=== PATIENT | female | born 1940 | race Caucasian/White ===

== ENCOUNTER 2017-07-15 10:52 | Outpatient (RCR) | payer MEDICARE, SELFPAY ==
--- NOTE | 2017-07-15 14:56 | HP.PTEVAL_ITS ---
Patient's Visit Information MELISSA JORDAN is a 77 year old F referred to Physical Therapy by Cira Valdez with a diagnosis of BPV. Date of Evaluation: 07/15/17 Physical Therapist: Jhonatan Stafford DPT, [place] - Visit Plan Plan: No skilled PT required at this point. Pt to continue doctoring with family doctors orders and diagnostics - Subjective Subjective: Since April has had some dizzyness with rolling in bed or leaning over to wash hair and it lasts seconds. Avoids woodchop in ex class and excessive head movement activities. Does not feel unsteady otherwise but does have sinus pressure feeling intermittently. Has had some migraines and bad allergies. Will have oxygen test for sleep apnea. Also had bllod pressure spikes after four hours of sleep and some migraines. All seemed to start in april. Has been senistive to spinning object for long time. Stopped down dog in yoga since April. - Objective Walks easily and smoothly without balance deficits.Transfers I. Steps reciprocal without rail. - B hallpike, - roll test. Oculomotor is normal today : no nystagmus with gaze or head shake. - skew eye deviation. - head thrust. pursuit and saccades are normal. VOR is normal and asymptomatic. No symptoms created today with position change or eye movements. - Balance Scores Functional Gait Assessment Score: 30 % Disability: 0 CATSIB Score (Max score 120 seconds): 120 - Anticipated Interventions Thank you for the opportunity to evaluate your patient. For Medicare and Medicare HMO plans, please review the plan of care and approve it. It will need to be FAXED BACK to us at [phone] for Medicare purposes. Please let me know if there are questions or concerns regarding this plan of care. Physician Signature: Date:
== END 2017-07-15 18:25 | disposition home or self-care (01) ==
LOC: PT 10:52
PROVIDERS: Family Provider Internal Medicine; PCP Internal Medicine; Visit Provider Internal Medicine
DX: H81.10 Benign paroxysmal vertigo, unspecified ear (principal)
CPT/HCPCS: 97162

== ENCOUNTER → 2018-01-05 08:22 | Outpatient (CLI) | payer MEDICARE, SELFPAY ==
--- NOTE | 2018-01-05 08:25 | CT_ITS ---
STUDY: CT ABDOMEN AND PELVIS WITHOUT CONTRAST REASON FOR EXAM: Female, 77 years old. Endometrial cancer. Uterine cancer. History of total hysterectomy, 2017. RADIATION DOSAGE (If Supplied By Facility): CTDIvol = ( 6.04 ) mGy, DLP = ( 255.17 ) mGycm TECHNIQUE: Transaxial images were obtained from the dome of the diaphragm to the symphysis pubis without oral contrast, and without intravenous contrast. Sagittal and coronal images were reconstructed. Individualized dose optimization techniques were used for this CT. COMPARISON: None. FINDINGS: The visualized lung bases are unremarkable. The visualized portions of the heart are within normal limits. There is hepatomegaly with diffuse hepatic enlargement. Normal gallbladder and extrahepatic biliary system. Normal spleen. Normal pancreas. Normal bilateral adrenal glands. Normal right kidney. Normal left kidney. Normal visualized stomach. Normal small intestine. Normal colon. There is non-visualization of the appendix. There is diffuse atherosclerotic calcification of the abdominal aorta, without a demonstrated aneurysm. Normal inferior vena cava. Normal retroperitoneum. The urinary bladder is incompletely distended but grossly unremarkable. Normal vaginal cuff. There are phleboliths in the pelvis without pelvic lymphadenopathy. No free air or free fluid is seen within the peritoneal cavity.. Normal abdominal wall. There are diffuse degenerative changes of the visualized lumbar spine and hips. CT/Abdomen/Pelvis without Cont IMPRESSION: 1. Hepatomegaly without focal mass. 2. Status post hysterectomy. 3. Degenerative changes of the lumbar spine and hips. 4. Atherosclerotic changes of the aorta and iliac arteries. 5. No evidence of acute intra-abdominal or pelvic abnormality. Electronically Signed: Ron Reis DO at 17:05 EST Tel [phone], Service support ,
== END ==
PROVIDERS: Family Provider Internal Medicine; PCP Internal Medicine; Referring Provider Obstetrics & Gynecology; Visit Provider Obstetrics & Gynecology
DX: C54.1 Malignant neoplasm of endometrium (principal); N93.9 Abnormal uterine and vaginal bleeding, unspecified; R16.0 Hepatomegaly, not elsewhere classified; Z90.710 Acquired absence of both cervix and uterus
CPT/HCPCS: 74176

== ENCOUNTER 2018-06-22 08:22 | Day surgery (SDC) | payer MEDICARE, SELFPAY ==
[2018-06-04 13:13] VITALS: BMI 18.8
[2018-06-22] VITALS (7 sets, daily range): BP systolic 102–166; BP diastolic 50–74; PULSE 57–78; RESP 16–18; TEMP 36–36.6; O2SAT 98–100; BMI 18.3
--- NOTE | 2018-06-22 09:51 | OP.ENDO_ITS ---
06/22/2018 Cira Valdez [address] [place] [address] Re : Colonoscopy procedure for Bharati Hilliard Dear Dr. Valdez This procedure was performed on Friday, June 22, 2018. My impressions and recommendations are as follows: Impressions : - Non-thrombosed external hemorrhoids, non-thrombosed internal hemorrhoids and internal hemorrhoids that prolapse with straining, but require manual replacement into the anal canal (Grade III) found on digital rectal exam. - Diverticulosis in the sigmoid colon and in the descending colon. - The examination was otherwise normal. - No specimens collected. Recommendations : - Discharge patient to home. - Resume previous diet. - Continue present medications. - - Repeat colonoscopy will be based upon symptoms. My findings are described in the full procedure note, which is enclosed. If I can be of further assistance, please feel free to contact me at Doctor phone number(s): Work: . Sincerely, Sameer Dover MD 06/22/2018 9:50:57 AM This report has been signed electronically.
== END 2018-06-22 10:51 | disposition home or self-care (01) ==
LOC: EN 08:24 → AC 08:25
PROVIDERS: Family Provider Internal Medicine; PCP Internal Medicine; Referring Provider Internal Medicine; Visit Provider Surgery
PROC: 0DJD8ZZ Inspection of Lower Intestinal Tract, Via Natural or Artificial Opening Endoscopic (ICD-10-PCS; CPT 45378; principal; 2018-06-22 09:25)
DX: Z12.11 Encounter for screening for malignant neoplasm of colon (principal); Z86.010 Personal history of colon polyps; K64.2 Third degree hemorrhoids; K64.4 Residual hemorrhoidal skin tags; K57.30 Diverticulosis of large intestine without perforation or abscess without bleeding; Z80.0 Family history of malignant neoplasm of digestive organs; I25.2 Old myocardial infarction; I10 Essential (primary) hypertension; Z87.891 Personal history of nicotine dependence
CPT/HCPCS: G0105; J7120

== ENCOUNTER → 2018-08-11 19:22 | Emergency (ER) | payer MEDICARE, SELFPAY ==
[2018-06-22 08:42] VITALS: BMI 18.3
[2018-08-11 19:22] VITALS: BP 182/81; PULSE 77; RESP 16; TEMP 36.9; O2SAT 98; BMI 18.5
== END ==
LOC: ED 08-12 00:19
PROVIDERS: Emergency Provider Emergency Medicine; Family Provider Internal Medicine; PCP Internal Medicine
DX: R69 Illness, unspecified (principal)

== ENCOUNTER → 2018-08-12 | Outpatient (CLI) | payer MEDICARE, SELFPAY ==
[2018-08-11 19:22] VITALS: BMI 18.5
[2018-08-12 09:57] LABS: Hematocrit 38.6 % (37-47); Mean Corp Hgb Conc 33.7 g/gl (32-36); Mean Corpuscular Hgb 29.1 pg (27.0-32.0); Mean Corpuscular Volume 86.5 fL (81-99); Mean Platelet Vol. 10.1 fl (6.2-12.0); Platelet Count 225 K/mm3 (150-450); RBC Distribution Width SD 41.6 fl (35.1-43.9); Red Blood Count 4.46 M/mm3 (4.2-5.4); White Blood Count 4.8 K/mm3 (4.4-11.0)
[2018-08-12 10:08] LABS: ALB/GLOB Ratio 1.2 RATIO (0.9-2.4); AST(SGOT) 49 U/L (15-37); Alanine Aminotransfer ALT/SGPT 50 U/L (13-56); Albumin, Serum 3.8 g/dL (3.2-5.0); Alkaline Phosphatase 103 U/L (45-117); Anion Gap 5 (5-15); BUN 13 mg/dL (7-18); Calcium,Total 8.9 mg/dL (8.5-10.1); Chloride 101 mmol/L (98-107); Creatinine, Serum 0.72 mg/dL (0.55-1.02); EST Glomerular Filtration Rate 83 mL/min (>60); Est Glom Filt Rate - Afr Amer 100 mL/min (>60); Globulin 3.3 g/dL (2.2-4.2); Glucose 94 mg/dL (74-106); Protein, Total 7.1 g/dL (6.4-8.2); Sodium Level 135 mmol/L (136-145)
[2018-08-12 10:16] LABS: Scan Indicated on CBC? Y/N NO
== END | disposition home or self-care (01) ==
LOC: LABSPEC 09:44
PROVIDERS: Family Provider Internal Medicine; PCP Internal Medicine; Referring Provider Nurse Practitioner Gerontology; Visit Provider Nurse Practitioner Gerontology
DX: R10.9 Unspecified abdominal pain (principal)
CPT/HCPCS: 80053; 85027

== ENCOUNTER → 2018-10-20 07:46 | Outpatient (CLI) | payer MEDICARE, SELFPAY ==
[2018-10-15 08:29] VITALS: BMI 18.3
--- NOTE | 2018-10-20 07:47 | AAVD_ITS ---
Reason For Study: Palpable Abdominal Aorta Aorta Measurements Aorta Doppler Measurements Proximal aorta measures1.65cm x 1.65cm. in cross- Peak systolic flow velocities within the proximal sectional axis. aorta measure 69 cm/sec. Proximal aorta measures1.52cm. in longitudinal Peak systolic flow velocities within the mid aorta axis. measure 59 cm/sec. Mid aorta measures1.50cm x 1.53cm. in cross- Peak systolic flow velocities within the distal sectional axis. aorta measure 76 cm/sec. Mid aorta measures1.54cm. in longitudinal axis. Distal aorta measures1.35cm x 1.39cm. in cross- sectional axis. Distal aorta measures1.37cm. in longitudinal axis. Left Iliac Artery Left iliac artery measures 0.70cm x 0.72 cm. in the cross-sectional axis. Left iliac artery measures 0.64 cm. in the longitudinal axis. Peak systolic velocity in the left iliac artery measures 108 cm/sec. Right Iliac Artery Right iliac artery measures 0.81cm x 0.81 cm. in the cross-sectional axis. Right iliac artery measures 0.77 cm. in the longitudinal axis. Peak systolic velocity in the right iliac artery measures 77 cm/sec. Procedure Aorta IVC Iliac vasculature or bypass grafts [id number]. Exam performed in department. Interpretation Summary 1. No aortoiliac stenosis or aneurysm. Ordering Physician: Alex Al Referring Physician: Cira Valdez Performed By: Fannie Agosto, DES, RVT
[2018-10-20 09:59] LABS: Bacteria 0 SEEN /hpf (None Seen); Mucous, Urine 0 SEEN /hpf (<or=2+)
[2018-10-20 10:09] LABS: Color, Urine Yellow (Yellow); Glucose, Dipstick Normal (Normal); Ketone-Dipstick Negative (Negative); Leukocyte Esterase-Dipstick 500 /ul (Negative); Nitrite-Dipstick Negative (Negative); Occult Blood-Urine 50 /ul (Negative); Protein-Dipstick 30 mg/dl (Negative); Urine Bilirubin Dipstick Negative (Negative); Urine Clarity Sl. Cloudy (Clear); Urine Urobilinogen Normal (Normal)
[2018-10-20 10:24] LABS: Red Blood Cells-Urine 0-5 SEEN /hpf (0-5); Squamous Epithelial Cells - UA 0-5 SEEN /hpf (5-10); White Blood Cells 25-50 SEEN /hpf (0-5)
== END ==
PROVIDERS: Family Provider Physician Assistant; PCP Internal Medicine; Referring Provider Internal Medicine Cardiovascular Disease; Visit Provider Internal Medicine Cardiovascular Disease
DX: I10 Essential (primary) hypertension (principal); R09.89 Other specified symptoms and signs involving the circulatory and respiratory systems; N39.0 Urinary tract infection, site not specified
CPT/HCPCS: 81001; 87086; 87088; 87186; 93978

== ENCOUNTER → 2018-10-29 09:59 | Outpatient (CLI) | payer MEDICARE, SELFPAY ==
[2018-10-20 09:08] VITALS: BMI 18.3
--- NOTE | 2018-10-29 10:00 | BI_ITS ---
MAMMOGRAPHY - BILATERAL SCREENING REASON FOR EXAM: Female, 78 years old. Routine annual screening examination. PERTINENT HISTORY: Non-contributory. Remote left excisional breast biopsy. Patient has a history of uterine carcinoma. TECHNIQUE: Digital bilateral breast donte (3D mammographic acquisition) in the CC and MLO projections. 2-D mediolateral oblique (MLO) and craniocaudad (CC) views of both breasts were obtained. CAD: Full Field Digital Mammography with Computer Added Detection was performed. COMPARISON: Comparison is made with prior study dated February 20, 2010. FINDINGS: Breast Composition: The breasts are heterogeneously dense, which may obscure small masses. There are no dominant masses or suspicious calcifications. No other significant abnormalities are identified. There has been no significant change since the prior study. BI/SCREEN MAMM (CAD) W/DONTE BILAT IMPRESSION: Stable bilateral screening mammogram. Yearly follow-up mammogram recommended. (A) ASSESSMENT CATEGORY: BIRADS Category 1: Negative. A letter regarding these results will be sent to the patient by the facility within 30 days. Approximately 10% of breast cancers are not detected by mammography. A normal mammogram should not delay biopsy of a clinically suspicious abnormality. [id number] Electronically Signed: Alvarez Wilson, at 11:03 EDT , Service support ,
== END ==
PROVIDERS: Family Provider Internal Medicine; PCP Internal Medicine; Referring Provider Internal Medicine; Visit Provider Internal Medicine
DX: Z12.31 Encounter for screening mammogram for malignant neoplasm of breast (principal)
CPT/HCPCS: 77063; 77067

== ENCOUNTER → 2019-01-18 13:04 | Outpatient (CLI) | payer MEDICARE, SELFPAY ==
[2019-01-18 12:41] VITALS: BMI 18.3
--- NOTE | 2019-01-18 13:06 | RAD_ITS ---
STUDY: X-RAY - LEFT SCAPULA REASON FOR EXAM: Female, 78 years old. TECHNIQUE: view(s) of the scapula were obtained. COMPARISON: None. FINDINGS: Normal scapula, including the osseous glenoid rim, acromion, scapular neck, spine, coracoid process, and visualized body. Normal glenohumeral articulation. Normal acromioclavicular joint. Normal visualized humeral head. Normal visualized pulmonary apex. RAD/Scapula IMPRESSION: Normal plain film x-ray examination of the scapula. Electronically Signed: Raven Purdy, at 13:54 EST Tel , Service support ,
== END ==
PROVIDERS: Family Provider Internal Medicine; PCP Internal Medicine; Referring Provider Physician Assistant Surgical; Visit Provider Physician Assistant Surgical
DX: S46.912A Strain of unspecified muscle, fascia and tendon at shoulder and upper arm level, left arm, initial encounter (principal); X58.XXXA Exposure to other specified factors, initial encounter
CPT/HCPCS: 73010

== ENCOUNTER → 2019-06-13 13:00 | Outpatient (CLI) | payer MEDICARE, SELFPAY ==
[2019-01-18 13:12] VITALS: BMI 18.3
--- NOTE | 2019-06-13 13:01 | CT_ITS ---
STUDY: CT ABDOMEN AND PELVIS WITHOUT CONTRAST REASON FOR EXAM: Female, 79 years old. ENDOMETRIAL/UTERINE CA, VAGINAL BLEEDING, APPENDECTOMY RADIATION DOSAGE (If Supplied By Facility): CTDIvol = ( 6.04 ) mGy, DLP = ( 249.13 ) mGycm TECHNIQUE: Transaxial images were obtained from the dome of the diaphragm to the symphysis pubis without oral contrast, and without intravenous contrast. Sagittal and coronal images were reconstructed. Individualized dose optimization techniques were used for this CT. COMPARISON: Comparison is made with prior examination dated January 05, 2018. FINDINGS: The visualized lung bases are unremarkable. The visualized portions of the heart are within normal limits. Normal liver. Normal gallbladder and extrahepatic biliary system. Normal spleen. Normal pancreas. Normal bilateral adrenal glands. Normal right kidney. Normal left kidney. Normal visualized stomach. Normal small intestine. Normal colon. The patient is status post appendectomy. There is diffuse atherosclerotic calcification of the abdominal aorta, without a demonstrated aneurysm. Normal inferior vena cava. Normal retroperitoneum. Normal urinary bladder. There is absence of the uterus consistent with a prior hysterectomy. Normal abdominal wall. Normal osseous structures. CT/Abdomen/Pel W ORAL Cont Only IMPRESSION: No acute abnormality is seen. Stable examination Electronically Signed: Alvarez Wilson, at 13:47 EDT , Service support ,
== END ==
PROVIDERS: PCP Internal Medicine; Referring Provider Obstetrics & Gynecology; Visit Provider Obstetrics & Gynecology
DX: C54.1 Malignant neoplasm of endometrium (principal)
CPT/HCPCS: 74176

== ENCOUNTER 2019-08-10 20:17 | Inpatient (IN) | payer MEDICARE, SELFPAY ==
[2019-01-18 13:12] VITALS: BMI 18.3
[2019-08-10] VITALS (10 sets, daily range): BP systolic 112–166; BP diastolic 65–89; PULSE 80–110; RESP 16–20; TEMP 36.9–37.1; O2SAT 93–100; BMI 22.9; BMI 19.5; BMI 19.6
--- NOTE | 2019-08-10 20:23 | EKG12_ITS ---
Test Reason : CP Blood Pressure : / mmHG Vent. Rate : 108 BPM Atrial Rate : 108 BPM P-R Int : 142 ms QRS Dur : 086 ms QT Int : 348 ms P-R-T Axes : 080 068 032 degrees QTc Int : 466 ms Sinus tachycardia with Premature supraventricular complexes ST elevation consider lateral injury or acute infarct ACUTE MD / STEMI Abnormal ECG Confirmed by SAMANTHA WU, YANELI ([id number]), editorial assistant MARTIN SAEED ([id number]) on 08/12/2019 11:14:24 AM Referred By: Charbel Casillas Confirmed By:YANELI SINGH MD
--- NOTE | 2019-08-10 20:31 | ED.DCSUM_ITS ---
- ER Visit Summary Date of Service: 08/10/19 Chief Complaint: Chest pain History of Present Illness: The patient is a [address] Valdez and Dr. Al. Patient reports that she has a history of Takasubo's in 2011. She had a heart catheterization in [facility] that did not require stents. She states that just prior to coming emerge department she was in a stressful situation arguing with her neighbor. Approximately 615 she had the onset of a substernal chest pain that she describes as tightness. She was nauseated with this, but did not vomit. She was also short of breath with this. She reports that it was 5-10 at worst and is 4-10 currently. Is worsened by nothing. Is been relieved by half of an Ativan and 25 mg of metoprolol. Physical Examination: Vitals: Stable. Afebrile. General: Well-nourished and well-developed. Head: Normocephalic atraumatic. Neck: Supple, no lymphadenopathy. No JVD. Nontender. Cardiovascular: Regular rate and rhythm. No murmurs. Respiratory: No respiratory distress. Clear to auscultation bilaterally. Abdominal: Soft, nontender, nondistended, normal bowel sounds. No guarding, rebound, or peritoneal signs. Back: Nontender. Extremities: Nontender, no edema. Skin: Normal color, no rash. Neurologic: Alert and oriented ?3. Cranial nerves II through XII are intact. Normal strength and sensation. Psych: Normal affect. Test Results: EKG by [facility] does show a septal FL with ST elevation in leads V1 to V3 and inferior ST depression. This was repeated in the emergency department and this does confirm this. Emergency Department Course and Treatment: Patient had received aspirin by [facility]. This was not repeated. She was given a 4000 unit bolus of heparin IV. She was given Brilinta p.o. I discussed with the patient that this may be Takasubo's syndrome, but we need to rule out a blockage before de-escalating treatment. Treatment Plan: Patient was discussed with Dr. Dubon and Dr. Casillas. She will be taken to the [facility] for further evaluation and treatment. Disposition: Admitted in serious condition. Impression: 1. ST elevation FL. This note was generated with [employer] software. It may contain incorrect words, spelling, and punctuation that were not noted in review of the chart prior to signing ED Disposition - Plan for ED Patient: Referrals: Cira Valdez DO [Primary Care Provider] -
--- NOTE | 2019-08-10 20:56 | ED.RN ---
PT LEFT ED PRIOR TO RECIEVING MEDICATIONS. CLINICAL ADMISSIONS MANAGER STAFF MADE AWARE.
[2019-08-10 21:09] LABS: Absolute Lymphocyte Count 1.25 X10^3/uL (0.83-4.51); Absolute Neutrophil Count 7.5 X10^3/uL (2.0-7.7); Basophil# 0.04 X10^3/uL; Basophil% 0.4 % (0-1); Eosinophil# 0.01 X10^3/uL; Eosinophils% 0.1 % (0-5); Hematocrit 36.9 % (37-47); Hemoglobin 12.7 g/dL (12.0-15.0); Lymphocyte # 1.25 X10^3/ul (4.0); Lymphocyte % 13.6 % (19-41); Mean Corp Hgb Conc 34.4 g/dL (32-36); Mean Corpuscular Hgb 29.6 pg (27.0-32.0); Mean Platelet Vol. 10.1 fl (6.2-12.0); Monocyte# 0.32 X10^3/uL; Monocyte% 3.5 % (0-10); NRBC Flagged by Analyzer 0 % (0-5); Neutrophil # 7.51 X10^3/uL (2.7-7.7); Neutrophil % 82.1 % (47-70); Platelet Count 248 K/mm3 (150-450); RBC Distribution Width SD 38.3 fl (35.1-43.9); Red Blood Count 4.29 M/mm3 (4.2-5.4); White Blood Count 9.2 K/mm3 (4.4-11.0)
--- NOTE | 2019-08-10 21:10 | HP.PCM_ITS ---
Problem List (1) ST elevation ND (STEMI) Status: Acute (2) Abrasion of knee, bilateral Status: Acute (3) Muscle strain of left scapular region Status: Inactive Qualifiers: Encounter type: initial encounter Qualified Code(s): S46.912A - Strain of unspecified muscle, fascia and tendon at shoulder and upper arm level, left arm, initial encounter (4) Urinary tract infection with hematuria Status: Inactive (5) History of supraventricular tachycardia Status: Chronic (6) History of coronary vasospasm Status: Chronic (7) History of non-ST elevation myocardial infarction (NSTEMI) Status: Chronic (8) Essential hypertension Status: Chronic (9) Personal history of colonic polyps Status: Resolved History of Present Illness Date of Admission: 08/10/19 Chief Complaint: Chest pain The patient is a 79 year old F with a significant history of Takotsubo cardiomyopathy in 2011 who presented to emergency department with substernal nonradiating chest pain. At onset her chest pain was 5 out of 10. Her chest pain is induced by stress. She took half a dose of her Ativan and half a dose of her metoprolol which brought her chest pain to 4 out of 10. She denies any aggravating factors. EKG before patient got to the hospital showed ST elevation for which reason a STEMI alert was called. Patient denies any nausea, vomiting or diaphoresis. Past Medical History Past Medical History (Chronic Problems): Chronic Problems (Last Reviewed 08/10/19 @ 21:[address] Charbel Casillas MD) History of supraventricular tachycardia (Chronic) History of coronary vasospasm (Chronic) History of non-ST elevation myocardial infarction (NSTEMI) (Chronic) Essential hypertension (Chronic) Medical History: Medical History (Last Reviewed 08/10/19 @ 21:[address] 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 IBS (irritable bowel syndrome) K58.9 Psoriasis L40.9 Cystadenoma D36.9 History of uterine cancer Z85.42 Vitamin D deficiency E55.9 Allergies cortisone Allergy (Severe, Verified 08/10/19 20:32) Throat swelling nitrofurantoin [From Macrobid] Allergy (Severe, Verified 08/10/19 20:32) Irregular HB, vision changes, diaphoresis erythromycin base Allergy (Intermediate, Verified 08/10/19 20:32) Unknown meperidine [From Demerol] Allergy (Intermediate, Verified 08/10/19 20:32) Unknown Iodinated Contrast Media [Iodinated Contrast Media - Oral and] Allergy (Verified 08/10/19 20:32) Rash iodine Allergy (Verified 08/10/19 20:32) Rash Penicillins Allergy (Verified 08/10/19 20:32) Rash Sulfa (Sulfonamide Antibiotics) Allergy (Verified 08/10/19 20:32) Rash COBEX Allergy (Uncoded 01/18/19 12:42) Anaphylaxis immunizations Allergy (Uncoded 01/18/19 12:42) Unknown Home Medications: Ambulatory Orders Medication Instructions Recorded lorazepam 0.5 mg tablet 0.5 mg PO DAILY PRN tab 10/14/18 metoprolol tartrate 25 mg tablet 12.5 mg PO DAILY #90 tab 10/27/18 Surgical History: Surgical History (Last Reviewed 08/10/19 @ 21:[address] Charbel Casillas MD) History of tonsillectomy Z90.89 History of colonoscopy Z98.890 History of appendectomy Z90.49 History of benign breast tumor Z86.018 removed History of bilateral oophorectomy Z90.722 History of section Z98.891 History of hysterectomy Z90.710 Smoking Status: Never smoker - *Family History Maternal Family History: Family History (Last Reviewed 08/10/19 @ 21:[address] Charbel Casillas MD) Father Cancer CAD (coronary artery disease) Pacemaker COPD (chronic obstructive pulmonary disease) Brother CAD (coronary artery disease) Hypertension Heart disease Mother CAD (coronary artery disease) Heart disease CVA (cerebral vascular accident) Cancer Review of Systems Constitutional: Denies: Chills, Fever, Weight Change HEENT: Denies: Head Aches, Sinus Congestion, Sinus Drainage Cardiovascular: Reports: Chest Pain. Denies: Palpitations Respiratory: Denies: Cough, Shortness of breath at rest, Sputum production Gastrointestinal: Denies: Abdominal Pain, Nausea, Vomiting Genitourinary: Denies: Dysuria Musculoskeletal: Denies: Joint Pain, Joint Tenderness Skin: Denies: Rash, Wounds Neurological: Denies: Numbness, Tingling, Focal weakness Psychiatric: Reports: Anxiety. Denies: Depression, Homicidal Ideations, Suicidal Ideations Hematologic/ Lymphatic: Denies: Easy Bruising, Easy Bleeding VTE Information - Inpt Only VTE Present on Admission: No VTE Mechan Device Prophylaxis: SCD's VTE Pharm Prophylaxis ordered?: No Patient Problems: Active and Suspected Problems (Last Reviewed 08/10/19 @ 21:[address] Charbel Casillas MD) ST elevation ND (STEMI) (Acute) - Physical Exam Vitals/I&O's: Vital Signs Temp Pulse Resp BP Pulse Ox 98.5 F 110 H 20 H 162/81 H 99 08/10/19 20:50 08/10/19 20:50 08/10/19 20:50 08/10/19 20:50 08/10/19 20:50 Oxygen Flow Rate (L/min) 2 Oxygen Delivery Method Nasal Cannula Weight: 56.9 kg Body Mass Index (BMI) 22.9 General: Alert, Oriented x3, Cooperative HEENT: Atraumatic, PERRLA, EOMI, Normocephalic Neck: Supple, No JVD, Negative Carotid Bruits Lungs: Clear to auscultation, Normal air movement Cardiovascular: Regular rate, Normal S1, Normal S2, No murmurs Abdomen: Bowel Sounds Present, Soft, Non Tender Extremities: No edema, Capillary Refill Less than 3 Seconds Skin: No rashes, No breakdown Musculoskeletal: No Tenderness to Palpation of Joints or Extremities Neurological: Cranial nerves II-XII grossly intact Psych/Mental Status: Anxious Laboratory Results 08/10/19 20:55: WBC 9.2, RBC 4.29, Hgb 12.7, Hct 36.9 L, MCV 86.0, MCH 29.6, MCHC 34.4, RDW Std Deviation 38.3, RDW Coeff of Lena 12.0, Plt Count 248, MPV 10.1, Immature Gran % (Auto) 0.300, Neut % (Auto) 82.1 H, Lymph % (Auto) 13.6 L, Atkinson % (Auto) 3.5, Eos % (Auto) 0.1, Baso % (Auto) 0.4, Absolute Neuts (auto) 7.5, Absolute Lymphs (auto) 1.25, Nucleated RBC % 0 08/10/19 20:55: PT Pending, INR Pending, APTT Pending 08/10/19 20:55: Sodium Pending, Potassium Pending, Chloride Pending, Carbon Dioxide Pending, Anion Gap Pending, BUN Pending, Creatinine Pending, Est GFR (MDRD) Af Amer Pending, Est GFR (MDRD) Non-Af Pending, BUN/Creatinine Ratio Pending, Glucose Pending, Calcium Pending, Troponin I Pending Current Medications Sodium Chloride () 1,000 mls @ 150 mls/hr IV .Q6H40M [facility] Assessment/Plan All Active Problems (Last Reviewed 08/10/19 @ 21:[address] Charbel Casillas MD) ST elevation ND (STEMI) (Acute) Abrasion of knee, bilateral (Acute) Personal history of colonic polyps (Resolved) The patient is a 79 year old F with a significant history of Takotsubo cardiomyopathy in 2011 who presented to emergency department with substernal nonradiating chest pain and found to have ST elevation ND on EKG. ST elevation ND Patient was given aspirin 324 mg by the paramedics. She received heparin 4000 units x 1 at emergency department. Also she received Brilinta 180 mg. Patient will be taken to the [facility]. Follow cardiology recommendation. Check troponin series. Check A1c and LDL. Continue home metoprolol with parameters. Admitted to intensive care unit after cardiac catheterization. Consult to event marketing assistant. Anxiety disorder PRN Ativan ordered. DVT prophylaxis SCD. Inpatient E&M: 01202 Init Hosp L3
[2019-08-10 21:21] LABS: Partial Thromboplast Time 26.7 Seconds (24.1-36.2); Prothrombin Time (Protime)PT. 12.2 SECONDS (11.7-14.9)
--- NOTE | 2019-08-10 21:25 | PCM.CONS.C ---
Reason for Consult Date of Consultation: 08/10/19 History of Present Illness: TThe patient is a [address] Valdez and Dr. Al. Patient reports that she has a history of Takasubo's in 2011. She had a heart catheterization in [facility] that did not require stents. She states that just prior to coming emerge department she was in a stressful situation arguing with her neighbor. Approximately 615 she had the onset of a substernal chest pain that she describes as tightness. She was nauseated with this, but did not vomit. She was also short of breath with this. She reports that it was 5-10 at worst and is 4-10 currently. Is worsened by nothing. In the emergency room EKG showed some ST elevation in the anterior leads along with ST depressions in the inferior leads. Because of ongoing chest pain and ST changes a STEMI alert was called. Patient was evaluated prior to cardiac catheterization and because of ongoing chest pain with ST-T changes she underwent emergent cardiac catheterization which revealed no significant obstructive stenoses. Left ventriculogram revealed mid ventricular akinesis with normal contraction of the apex and base consistent with apical sparing variant of Takotsubo cardiomyopathy. Patient is being admitted to the PCU for further management. Review of systems: All systems reviewed. All else is negative except that in HPI. Past Medical History Allergies/Adverse Reactions: Allergies cortisone Allergy (Severe, Verified 08/10/19 20:32) Throat swelling nitrofurantoin [From Macrobid] Allergy (Severe, Verified 08/10/19 20:32) Irregular HB, vision changes, diaphoresis erythromycin base Allergy (Intermediate, Verified 08/10/19 20:32) Unknown meperidine [From Demerol] Allergy (Intermediate, Verified 08/10/19 20:32) Unknown Iodinated Contrast Media [Iodinated Contrast Media - Oral and] Allergy (Verified 08/10/19 20:32) Rash iodine Allergy (Verified 08/10/19 20:32) Rash Penicillins Allergy (Verified 08/10/19 20:32) Rash Sulfa (Sulfonamide Antibiotics) Allergy (Verified 08/10/19 20:32) Rash COBEX Allergy (Uncoded 01/18/19 12:42) Anaphylaxis immunizations Allergy (Uncoded 01/18/19 12:42) Unknown Home Medications: Ambulatory Orders Medication Instructions Recorded lorazepam 0.5 mg tablet 0.5 mg PO DAILY PRN tab 10/14/18 metoprolol tartrate 25 mg tablet 12.5 mg PO DAILY #90 tab 10/27/18 Past Medical History (Chronic Problems): Chronic Problems (Last Reviewed 01/18/19 @ 12:42 by Leta Singh) History of supraventricular tachycardia (Chronic) History of coronary vasospasm (Chronic) History of non-ST elevation myocardial infarction (NSTEMI) (Chronic) Essential hypertension (Chronic) Smoking Status: Never smoker Objective: Vital Signs Temp Pulse Resp BP Pulse Ox 98.5 F 110 H 20 H 162/81 H 99 08/10/19 20:50 08/10/19 20:50 08/10/19 20:50 08/10/19 20:50 08/10/19 20:50 Oxygen Flow Rate (L/min) 2 Oxygen Delivery Method Nasal Cannula Weight: 125 lb 7.088 oz Body Mass Index (BMI) 22.9 General: Awake, Alert, Oriented x 3 HEENT: Atraumatic Oral: Moist Mucosa Neck: Supple Abdomen: Soft Skin: No Rashes Psych/Mental Status: Appropriate 08/10/19 20:55: WBC 9.2, RBC 4.29, Hgb 12.7, Hct 36.9 L, MCV 86.0, MCH 29.6, MCHC 34.4, Plt Count 248, MPV 10.1, Immature Gran % (Auto) 0.300, Neut % (Auto) 82.1 H, Lymph % (Auto) 13.6 L, [place] % (Auto) 3.5, Eos % (Auto) 0.1, Baso % (Auto) 0.4, Absolute Neuts (auto) 7.5, Nucleated RBC % 0 08/10/19 20:55: PT 12.2, INR 1.0, APTT 26.7 Rhythm: EKG: ECHO: Stress Test: Cardiac Cath: PCI: CT Surgery: Holter monitor: EPS: PPM: CXR: Chest CT Scan: Assessment/Plan 1. Chest pain: Appears to be secondary to Takotsubo cardiomyopathy. Patient states that the last time she had Takotsubo cardiomyopathy she did not tolerate beta-kadi or ALY inhibitor. We will monitor her overnight and if her blood pressure allows we will consider starting these at a low dose.
[2019-08-10 21:33] LABS: Anion Gap 10 (5-15); BUN 19 mg/dL (7-18); BUN/Creat Ratio 23.8 RATIO (10-20); Calcium,Total 8.8 mg/dL (8.5-10.1); Chloride 102 mmol/L (98-107); EST Glomerular Filtration Rate 74 mL/min (>60); Est Glom Filt Rate - Afr Amer 89 mL/min (>60); Estimated Creatinine Clearance 45.84 ml/min; Glucose 136 mg/dL (74-106); Potassium 3.9 mmol/L (3.5-5.1); Sodium Level 133 mmol/L (136-145)
--- NOTE | 2019-08-10 21:44 | CL.D_ITS ---
Patient Name: MELISSA JORDAN Study Date: 08/10/2019 Performing: Elisa Dubon MD Ht: 62 inches 157.48 cm : 1940 Wt: 100.1 lbs 45.35 kg Age: 79 Gender: female BSA: 1.42 PROCEDURE(S) PERFORMED [id number]-[id number]/COR/LV CLINICAL PROFILE AND INDICATIONS Indications: ACS <= 24 hrs Heart Failure: None Stress/Imaging Stress/Image Study Performed: No CAD Presentations: suspected STEMI. Symptom onset Date/Time: 08/10/19 Time Not Available CONCLUSIONS Non obstructive CAD. Takotsubo cardiomyopathy. EF is 35%. No significant or MR RECOMMENDATIONS DESCRIPTION OF PROCEDURE The patient arrived to the procedure lab. The risks and benefits of the procedure as well as a full d escription of our services here and current unavailability of surgical backup were fully explained to the patient and/or their significant other prior to the catheterization. The Timeout was completed, verifying the correct patient and procedure. The patient's procedural site was prepped and draped in the usual fashion. Local anesthetic was given subcutaneously to right radial region with Lidocaine 2% . Using a modified Seldinger technique, arterial access was obtained via the right radial artery, a 6 Fr sheath was inserted. Left Coronary Artery selective angiography was performed in multiple views u sing a 5 Fr. JL3.5 catheter. Left Ventriculography was performed in GUZMAN projection using a 5 Fr. JR 4 . LV to AO pullback pressures were then recorded. Right Coronary Artery selective angiography was the n performed in multiple views using a 5 Fr. JR 4 catheter.The arterial sheath was pulled and a TR Band was applied for hemostasis w/ 13ml air CORONARY ANGIOGRAPHY DOMINANCE: Right Dominant LEFT HEART ASSESSMENT Left Ventricular Ejection Fraction: by LV Gram 35 % Severe hypokinesis to akinesis of the mid LV with normal contraction of the apex and base of the LV c onsistent with apical sparing Takotsubo cardiomyopathy LEFT MAIN: Mild luminal irregularities LEFT ANTERIOR DESCENDING ARTERY: Mild luminal irregularities CIRCUMFLEX ARTERY: Mild luminal irregularities RIGHT CORONARY ARTERY: Mild luminal irregularities VALVE FINDINGS: No Aortic Valve Stenosis No Mitral Insufficency COMPLICATIONS No Complications PROCEDURE MEDICATIONS Oxygen: 2 L/min via nasal cannula Benadryl 25 mg IV @ 08/10/2019 20:45:17 Heparin given IA 08/10/2019 21:00:17 Solu-medrol 125 mg IV 08/10/2019 20:45:17 Verapamil 2.5mg, Ntg 100mcgs, 3000 units of Heparin given IA 08/10/2019 21:00:17 SUMMARY OF HEMODYNAMIC DATA Time AIR REST ECG 20:44:42 AO 121/79 (101) SA 21:12:17 LV 127/-11, 9 21:15:35 LV 115/-19, 3 21:15:41 LV 119/-15, 11 21:16:20 LVp 123/-11, 10 21:16:29 AOp 124/55 (87) 21:16:34 Signed By Elisa Dubon MD On 08/10/2019 21:43:36 Elisa Dubon MD
[2019-08-10 22:22] LABS: Cholesterol 199 mg/dL (200); High Density Lipoprotein 90 mg/dL; Triglycerides 73 mg/dL; Very Low Density Lipoprotein 15 mg/dL (5-40)
--- NOTE | 2019-08-10 22:23 | EKG12_ITS ---
Test Reason : POST CATH Blood Pressure : / mmHG Vent. Rate : 089 BPM Atrial Rate : 089 BPM P-R Int : 174 ms QRS Dur : 086 ms QT Int : 398 ms P-R-T Axes : 076 065 058 degrees QTc Int : 484 ms Sinus rhythm with Premature supraventricular complexes Otherwise normal ECG When compared with ECG of 29-MAR-2016 21:49, Premature supraventricular complexes are now Present Confirmed by JENAE WU, JOHNNY ([id number]), video tape editor ERNST GHOSH ([id number]) on 08/15/2019 9:56:14 AM Referred By: Charbel Casillas Confirmed By:ANAHY EMANUEL MD
[2019-08-10 22:26] LABS: Hemoglobin A1c 5.9 % (3.8-5.6)
[2019-08-10] MEDS: LORazepam 0.5 MG Tablet PO (22:41)
[2019-08-11] VITALS: BP 122/72; PULSE 89; RESP 18; O2SAT 94
--- NOTE | 2019-08-11 00:22 | NURSING ---
LAB WAS UNABLE TO GET LAB STICK ON FIRST TRY AND PATIENT REFUSED TO HAVE HIM POKE HER AGAIN.
[2019-08-11 01:03] VITALS: BP 105/64; PULSE 81; RESP 18; TEMP 36.6; O2SAT 96
[2019-08-11 02:25] VITALS: O2SAT 97
--- NOTE | 2019-08-11 05:00 | EKG12_ITS ---
Test Reason : AM EKG Blood Pressure : / mmHG Vent. Rate : 087 BPM Atrial Rate : 087 BPM P-R Int : 182 ms QRS Dur : 086 ms QT Int : 430 ms P-R-T Axes : 078 065 061 degrees QTc Int : 517 ms Sinus rhythm with marked sinus arrhythmia Anterior infarct , age undetermined Prolonged QT Abnormal ECG When compared with ECG of 10-AUG-2019 22:10, MANUAL COMPARISON REQUIRED, DATA IS UNCONFIRMED Confirmed by JENAE WU, JOHNNY ([id number]), digital editor ERNST GHOSH ([id number]) on 08/15/2019 9:54:58 AM Referred By: Charbel Casillas Confirmed By:ANAHY EMANUEL MD
[2019-08-11 05:20] VITALS: BP 110/65; PULSE 92; RESP 18; TEMP 37; O2SAT 97
[2019-08-11 06:46] VITALS: PULSE 89
--- NOTE | 2019-08-11 09:30 | NURSING ---
dr rowell in room with patient to review POC and discharge medications, daughter on speaker phone at this time.
--- NOTE | 2019-08-11 10:03 | DCINST_ITS ---
- Discharge Diagnoses Current Active Problems: Current Active and Chronic Problems (Last Updated 08/10/19 @ 21:[address] Charbel Casillas MD) ST elevation VA (STEMI) (Acute) You will use the following diet at home:: No restrictions Your food should be the consistency of: Regular Your liquids should be the consistency of: Regular/Thin Discharge Activity: Return to Normal Activity Weight Bearing Status: Full weight bearing Allergies/Adverse Reactions: Allergies cortisone Allergy (Severe, Verified 08/10/19 20:32) Throat swelling nitrofurantoin [From Macrobid] Allergy (Severe, Verified 08/10/19 20:32) Irregular HB, vision changes, diaphoresis erythromycin base Allergy (Intermediate, Verified 08/10/19 20:32) Unknown meperidine [From Demerol] Allergy (Intermediate, Verified 08/10/19 20:32) Unknown Iodinated Contrast Media [Iodinated Contrast Media - Oral and] Allergy (Verified 08/10/19 20:32) Rash iodine Allergy (Verified 08/10/19 20:32) Rash Penicillins Allergy (Verified 08/10/19 20:32) Rash Sulfa (Sulfonamide Antibiotics) Allergy (Verified 08/10/19 20:32) Rash COBEX Allergy (Uncoded 01/18/19 12:42) Anaphylaxis immunizations Allergy (Uncoded 01/18/19 12:42) Unknown Medications to take at Discharge lorazepam 0.5 mg tablet 0.5 mg PO DAILY PRN tab 10/14/18 Losartan Potassium [Cozaar] 12.5 mg PO DAILY #15 tab 08/11/19 Metoprolol Succinate [Toprol Xl] 12.5 mg PO DAILY #15 tab.er.24h 08/11/19 Pravastatin Sodium 10 mg PO DAILY #30 tab 08/11/19 The following prescriptions were given: Losartan Potassium [Cozaar] 12.5 mg PO DAILY #15 tab Transmission Status: Pending to [facility] Pravastatin Sodium 10 mg PO DAILY #30 tab Transmission Status: Pending to [facility] Metoprolol Succinate [Toprol Xl] 12.5 mg PO DAILY #15 tab.er.24h Transmission Status: Pending to [facility] Primary Care Physician: Cira Valdez DO [Primary Care Provider] - Please follow up with your Primary Care Physician in: as scheduled Test Results: Test results from this visit will be discussed in further detail at your follow- up appointment, if applicable. Please Follow Up With: Alex Al MD When: in 3 weeks-call for appointment
--- NOTE | 2019-08-11 10:28 | CASEMGMT ---
Assessment- SW met with patient introduced self and role at [facility]. Patient agreed to complete assessment with SW. 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 Living situation- Patient lives alone in a 1 story home with 1 entry step. PCP: Dr Valdez Specialists: Dr Al-Cardiology and Dr Garzon-Oncology Pharmacy: [facility] (this hospital visit she would like to use [facility]) DME: None ADL's/IADL's: Patient is independent in all activities. She drives, cooks, cleans, bathes herself, manages her own medications, does not use any assistive devices. Past SNF/rehab: None Past HH: None LW: Yes and it is on file at [facility] POA: Yes and it is on file at [facility]. Her daughter, Elizabeth Velasquez is her HCPOA Plan: Patient has no concerns with going home alone at discharge. Her daughter lives up the road from her. SW also asked her about her Anxiety and Depression. She does not feel she has Depression, just Anxiety. She has been managing well. She goes to [employer] and she does [employer] which she feels is helping. She did express frustration with where she lives. Apparently just before she came into the hospital she was at a meeting for the condo units where she lives. She said it was a very hostile meeting with people yelling at others and calling people names. She is going to look for another place to live that is more peaceful. She denies any further needs for discharge. Mei ARAGON MSW
[2019-08-11 10:40] VITALS: BP 125/89; PULSE 98; RESP 18; TEMP 36.7; O2SAT 98
--- NOTE | 2019-08-11 10:45 | PHA.DC.MC ---
Pharmacy Service has performed discharge medication reconciliation and counseling for this patient. 1. LOSARTAN 12.5MG PO DAILY 2. METOPROLOL XL 12.5MG PO DAILY 3. PRAVASTATIN 10MG PO DAILY The patient's discharge medication list was reviewed for discrepancies and discrepancies were resolved. Pt is concerned about potential side effects associated with new medications but said she is willing to try and see how she tolerates them. Home Medications lorazepam 0.5 mg tablet 0.5 mg PO DAILY PRN tab 10/14/18 Losartan Potassium [Cozaar] 12.5 mg PO DAILY #15 tab 08/11/19 Metoprolol Succinate [Toprol Xl] 12.5 mg PO DAILY #15 tab.er.24h 08/11/19 Pravastatin Sodium 10 mg PO DAILY #30 tab 08/11/19 The patient was counseled on the following discharge medications and changes in medications for homegoing were reviewed. The Reason for Use, instructions for use, and potential side effects were reviewed for all new medications. The patient's questions regarding all of their medications were answered. The patient was able to verbally demonstrate an understanding of their discharge medications.
--- NOTE | 2019-08-11 17:42 | PCM.DC.SUM ---
Discharge Date and Diagnosis Date of Admission: 08/10/19 Date of Discharge: 08/11/19 - Primary Discharge Diagnosis Acute Problems: #1 Acute STEMI #2 nonocclusive coronary artery disease #3 Takotsubo's cardiomyopathy #4 anxiety disorder #5 vasospastic coronary artery disease #6 essential hypertension - Secondary Discharge Diagnosis Chronic Problems: Chronic Problems (Last Updated 08/10/19 @ 21:[address] Charbel Casillas MD) History of supraventricular tachycardia (Chronic) History of coronary vasospasm (Chronic) History of non-ST elevation myocardial infarction (NSTEMI) (Chronic) Essential hypertension (Chronic) Hospital Course and Treatment Operations: None Procedures: Cardiac catheterization Summary of Care Provided: The patient is a 79 year old F was seen in the emergency room at [facility] with a chief complaint of chest pain, she described the chest pain as being substernal in nature and described it as being a tightness. Patient did complain of nausea. Work-up in the emergency room included an EKG which was felt to indicate a septal [place] with ST elevation in leads V1 to V3 with inferior ST depression per the emergency room physician's read out. His troponin was elevated at 6.64. A STEMI alert was called and the patient was taken to the cardiac catheterization lab, she underwent a cardiac catheterization which revealed no significant obstructive stenosis. Left ventriculogram revealed mid ventricular akinesis with normal contraction of the apex and base consistent with apical sparing variant of Takotsubo cardiomyopathy. Patient was transferred to PCU, her medications were reviewed and adjusted. On 08/11/2019, patient was seen and examined: On examination she appeared in good health and spirits, she does not appear to be in any distress. Vital signs as documented. Skin warm and dry and without overt rashes. Neck without JVD, thyroid appears normal, trachea is midline, neck is supple. Lungs clear, normal air movement was noted. Heart exam notable for regular rhythm, normal sounds and absence of murmurs, rubs or gallops. Abdomen unremarkable and without evidence of organomegaly, masses, or abdominal aortic enlargement, bowel sounds are present in all 4 quadrants, no abdominal tenderness was noted. Extremities nonedematous, no cyanosis was noted, no clubbing was noted. Neuro: Cranial nerves II through XII are grossly intact, no focal motor deficits were noted, sensation to light touch and pinprick is intact, motor exam 5/5 throughout. Psych: Patient is alert and oriented x3, she does not appear anxious or depressed, she does not appear agitated. Patient appears stable for discharge home on 08/11/2019, I spent some time going over her medications with the patient, she expressed reluctance to take the prescribed medications due to her intolerance of many medications. I explained to her and her daughter (by phone) the need to take these medications and follow-up with Dr. Al in the office. - Physical Exam Vitals/I&O's: Vital Signs Temp Pulse Resp BP Pulse Ox 98.0 F 98 18 125/89 H 98 08/11/19 10:40 08/11/19 10:40 08/11/19 10:40 08/11/19 10:40 08/11/19 10:40 Oxygen Flow Rate (L/min) 2 Oxygen Delivery Method Room Air Weight: 48 kg Body Mass Index (BMI) 19.5 Intake and Output for Last 24 Hours 08/09/19 08/10/19 08/11/19 23:59 23:59 23:59 Intake Total 240 / 240 Balance 240 / 240 Laboratory Results 08/10/19 20:55: WBC 9.2, RBC 4.29, Hgb 12.7, Hct 36.9 L, MCV 86.0, MCH 29.6, MCHC 34.4, RDW Std Deviation 38.3, RDW Coeff of Lena 12.0, Plt Count 248, MPV 10.1, Immature Gran % (Auto) 0.300, Neut % (Auto) 82.1 H, Lymph % (Auto) 13.6 L, [place] % (Auto) 3.5, Eos % (Auto) 0.1, Baso % (Auto) 0.4, Absolute Neuts (auto) 7.5, Absolute Lymphs (auto) 1.25, Nucleated RBC % 0 08/10/19 20:55: PT 12.2, INR 1.0, APTT 26.7 08/10/19 20:55: Sodium 133 L, Potassium 3.9, Chloride 102, Carbon Dioxide 21.0, Anion Gap 10, BUN 19 H, Creatinine 0.80, Estim Creat Clear Calc 45.84, Est GFR (MDRD) Af Amer 89, Est GFR (MDRD) Non-Af 74, BUN/Creatinine Ratio 23.8 H, Glucose 136 H, Calcium 8.8, Troponin I 6.640 H* 08/10/19 20:55: Triglycerides 73, Cholesterol 199, LDL Cholesterol 94, VLDL Cholesterol 15, HDL Cholesterol 90 08/10/19 20:55: Hemoglobin A1c 5.9 H 08/11/19 03:16: Troponin I 12.300 H* 08/11/19 05:55: Troponin I 12.900 H* Discharge Activity: Return to Normal Activity Weight Bearing Status: Full weight bearing Home Medications: Medications to take at Discharge lorazepam 0.5 mg tablet 0.5 mg PO DAILY PRN tab 10/14/18 Losartan Potassium [Cozaar] 12.5 mg PO DAILY #15 tab 08/11/19 Metoprolol Succinate [Toprol Xl] 12.5 mg PO DAILY #15 tab.er.24h 08/11/19 Pravastatin Sodium 10 mg PO DAILY #30 tab 08/11/19 Following Prescrptions Were Given to Patient: Losartan Potassium [Cozaar] 12.5 mg PO DAILY #15 tab Transmission Status: Received by [facility] Pravastatin Sodium 10 mg PO DAILY #30 tab Transmission Status: Received by [facility] Metoprolol Succinate [Toprol Xl] 12.5 mg PO DAILY #15 tab.er.24h Transmission Status: Received by [facility] Primary Care Physician: Cira Valdez DO [Primary Care Provider] - Please follow up with your Primary Care Physician in: as scheduled Please Follow Up With: Alex Al MD When: in 3 weeks-call for appointment Disposition: Home Minutes spent on discharge:: 31 Patient Condition:: Stable Medical Necessity - Tobacco Use Smoking Status: Never smoker Meaningful Use Info Meaningful Use Diagnoses (Choose all that apply): AMI - AMI/Post PCI/Angioplasty Aspirin given w/in 24hrs of arrival?: No Reason no aspirin w/in 24hrs of arrival?: intolerant of aspirin ASA at discharge?: No Reason ASA not ordered:: Allergy - intolerant of aspirin Antiplatelet Therapy at Discharge:: No Reason Antiplatelet Therapy not ordered:: not indicated Statins at discharge?: Yes Ramos/ARB at discharge?: Yes Beta Car at discharge?: Yes Done w/ Acute [place] measure.: Yes Documented LVEF (%): 35 Inpatient E&M: [id number] Disch Hosp
== END 2019-08-11 11:49 | disposition home or self-care (01) | DRG 281 ==
LOC: ED 20:25 → PCU 21:53
PROVIDERS: Admitting Provider Specialist; Emergency Provider Emergency Medicine; PCP Internal Medicine; Referring Provider Hospitalist; Visit Provider Internal Medicine
DX: I21.29 ST elevation (STEMI) myocardial infarction involving other sites (principal); I51.81 Takotsubo syndrome; I10 Essential (primary) hypertension; I25.2 Old myocardial infarction; F41.9 Anxiety disorder, unspecified; I25.10 Atherosclerotic heart disease of native coronary artery without angina pectoris; Z82.3 Family history of stroke; Z82.49 Family history of ischemic heart disease and other diseases of the circulatory system; Z82.5 Family history of asthma and other chronic lower respiratory diseases; Z85.42 Personal history of malignant neoplasm of other parts of uterus; Z87.19 Personal history of other diseases of the digestive system; Z90.49 Acquired absence of other specified parts of digestive tract; Z90.710 Acquired absence of both cervix and uterus
CPT/HCPCS: 36415; 80048; 80061; 83036; 84484; 85025; 85610; 85730; 93005; 93458; 94762; 99281; 99283; J7040; A4216; C1769; C1894; Q9967

== ENCOUNTER → 2019-11-14 13:02 | Outpatient (CLI) | payer MEDICARE, SELFPAY ==
[2019-09-07 09:35] VITALS: BMI 18.5
--- NOTE | 2019-11-14 13:03 | ECHOD_ITS ---
Reason For Study: Cardiomyopathy Procedure This was a 2D Doppler, Color Flow transthoracic echocardiogram. The exam was of adequate technical quality. Exam performed in department. Left Ventricle Normal LV size. Left ventricular systolic function is normal. The estimated ejection fraction is 65 %. Diastolic function is indeterminate. No regional wall motion abnormalities noted. Right Ventricle Normal RV size. Normal systolic function. Atria Normal left atrium. Normal right atrium. No doppler evidence for ASD. Mitral Valve There is no mitral annular calcification. Anterior leaflet diffuse mitral valve thickening. The mitral valve chordae are thickened and/or calcified. Mild mitral valve prolapse. Mild (1+) mitral valve insufficiency. Tricuspid Valve Normal tricuspid valve. Mild tricuspid valve insufficiency. Right ventricular systolic pressure estimated to be 30 mmHg. Aortic Valve Trisinus/trileaflet aortic valve. Mild diffuse aortic valve thickening. Trivial aortic valve insufficiency. Pulmonic Valve The pulmonic valve is not well visualized. Mild (1+) eccentric pulmonic valve insufficiency. Great Vessels Normal sized aortic root. Pericardium/Pleural No pericardial effusion. MMode/2D Measurements & Calculations LVIDd: 3.1 cm IVSd: 0.81 cm Ao root diam: 3.1 cm LVIDs: 1.8 cm LVPWd: 0.84 cm RVDd: 2.4 cm FS: 41.5 % LAV(MOD-bp): 36.3 ml LVAd ap4: 18.3 cm2 SV(MOD-sp4): 26.7 ml LAV(MOD-bp) Indexed: 25.5 ml/m2 EDV(MOD-sp4): 44.0 ml LAV(MOD-sp2): 37.3 ml EDV(sp4-el): 44.9 ml LAV(MOD-sp4): 32.7 ml LVAs ap4: 10.9 cm2 ESV(MOD-sp4): 17.4 ml ESV(sp4-el): 17.5 ml EF(MOD-sp4): 60.6 % EF(sp4-el): 61.0 % SV(sp4-el): 27.4 ml LA A4 area: 12.9 cm2 LA dimension(2D): 2.7 cm RA A4 area: 11.5 cm2 Doppler Measurements & Calculations MV E max chan: 110.1 cm/sec Lat Peak E' Chan: 7.7 cm/sec Med Peak E' Chan: 7.0 cm/sec MV A max chan: 90.2 cm/sec E/E' lat: 14.3 E/E' med: 15.6 MV E/A: 1.2 Ao V2 max: 131.4 cm/sec AI max chan: 406.4 cm/sec LV V1 max: 103.4 cm/sec Ao max P.9 mmHg AI max P.1 mmHg LV V1 max P.3 mmHg AI dec slope: 247.3 cm/sec2 AI P1/2t: 481.3 msec PA V2 max: 100.4 cm/sec TR max chan: 257.5 cm/sec TR max P.5 mmHg Interpretation Summary Left ventricular systolic function is normal. The estimated ejection fraction is 65 %. Anterior leaflet diffuse mitral valve thickening. The mitral valve chordae are thickened and/or calcified. Mild mitral valve prolapse. Mild (1+) mitral valve insufficiency. Mild tricuspid valve insufficiency. Mild diffuse aortic valve thickening. Trivial aortic valve insufficiency. Mild (1+) eccentric pulmonic valve insufficiency. Right ventricular systolic pressure estimated to be 30 mmHg. Diastolic function is indeterminate. Ordering Physician: Alex Al Referring Physician: Cira Valdez M.D. Performed By: Laura Phillips RDCS
== END ==
PROVIDERS: PCP Internal Medicine; Referring Provider Internal Medicine Cardiovascular Disease; Visit Provider Internal Medicine Cardiovascular Disease
DX: I51.81 Takotsubo syndrome (principal); I42.9 Cardiomyopathy, unspecified
CPT/HCPCS: 93306

== ENCOUNTER → 2020-05-31 16:36 | Outpatient (CLI) | payer MEDICARE, SELFPAY ==
[2020-05-31 13:49] VITALS: BMI 18.7
[2020-06-06 13:43] LABS: HPV APTIMA, High Risk Negative (Negative)
== END ==
PROVIDERS: PCP Internal Medicine; Referring Provider Obstetrics & Gynecology; Visit Provider Obstetrics & Gynecology
DX: C54.1 Malignant neoplasm of endometrium (principal); R87.619 Unspecified abnormal cytological findings in specimens from cervix uteri; Z12.4 Encounter for screening for malignant neoplasm of cervix
CPT/HCPCS: 87624; 88175; G0145

== ENCOUNTER 2020-10-27 18:26 | Observation (INO) | payer MEDICARE, SELFPAY ==
[2020-10-27 18:27] VITALS: BP 185/83; PULSE 104; RESP 20; TEMP 36.4; O2SAT 100; BMI 18.3
--- NOTE | 2020-10-27 18:36 | RAD_ITS ---
INDICATION: chest pain EXAMINATION/TECHNIQUE: X-RAY - XR Chest 1 View COMPARISON: Left shoulder x-rays from 01/18/2019. FINDINGS: LINES/DEVICES: Blank are monitoring wires. LUNGS: No consolidation, edema or effusion. No pneumothorax. Lungs are hyperinflated expanded likely representing emphysema. Significantly increased hyperlucency no abnormal reticular opacities. There is slight blunting of the left costophrenic angle. MEDIASTINUM AND CARDIOVASCULAR STRUCTURES: Cardiac silhouette not enlarged. Central airways and mediastinal contour are unremarkable. BONES AND SOFT TISSUES: Within normal limits for age. RAD/Chest 1 View (Portable) IMPRESSION: Slight blunting left costophrenic angle. Otherwise normal exam. Consider PA and lateral views of the chest when patient is able. Electronically Signed: Shaquille Faulkner DO at 21:33 EDT Tel , Service support ,
--- NOTE | 2020-10-27 18:36 | EKG12_ITS ---
Test Reason : CP Blood Pressure : / mmHG Vent. Rate : 087 BPM Atrial Rate : 087 BPM P-R Int : 154 ms QRS Dur : 084 ms QT Int : 362 ms P-R-T Axes : 066 054 077 degrees QTc Int : 435 ms Sinus rhythm with Premature supraventricular complexes Left ventricular hypertrophy with repolarization abnormality Abnormal ECG Confirmed by JENAE WU, JOHNNY ([id number]), school photograph editor ERNST GHOSH ([id number]) on 10/30/2020 8:01:19 AM Referred By: NEAL OLIVAREZ Confirmed By:ANAHY EMANUEL MD
--- NOTE | 2020-10-27 19:46 | ED.RN ---
PT REFUSES GOWN, HELP DESK ENGINEER, IV, CXR. AWARE.
[2020-10-27 20:00] VITALS: BP 171/86; PULSE 72; RESP 18; O2SAT 99
[2020-10-27 20:23] LABS: Absolute Lymphocyte Count 1.66 X10^3/uL (0.83-4.51); Absolute Neutrophil Count 4.7 X10^3/uL (2.0-7.7); Basophil# 0.03 X10^3/uL; Basophil% 0.4 % (0-1); Eosinophil# 0.03 X10^3/uL; Eosinophils% 0.4 % (0-5); Hematocrit 37.8 % (37-47); Lymphocyte # 1.66 X10^3/ul (0.83-4.51); Mean Corp Hgb Conc 34.4 g/dL (32-36); Mean Corpuscular Hgb 29.1 pg (27.0-32.0); Mean Corpuscular Volume 84.8 fL (81-99); Mean Platelet Vol. 9.7 fl (6.2-12.0); Monocyte# 0.47 X10^3/uL; Monocyte% 6.8 % (0-10); NRBC Flagged by Analyzer 0 % (0-5); Neutrophil % 68.1 % (47-70); Platelet Count 238 K/mm3 (150-450); RBC Distribution Width CV 12.6 % (11.6-14.6); RBC Distribution Width SD 38.4 fl (35.1-43.9); Red Blood Count 4.46 M/mm3 (4.2-5.4); White Blood Count 6.9 K/mm3 (4.4-11.0)
--- NOTE | 2020-10-27 20:41 | EX.ED.DYSGE1 ---
HPI History of Present Illness Chief Complaint: Palpitations Narrative Narrative: Patient presenting with palpitations. She states that she felt as if her ears were full. She states has been having this on and off for about a month. She was initially seen and evaluated for this. She was tested for Covid and this was negative. Patient states that her chest felt like it was fluttering and she had some shortness of breath which she thought was anxiety driven. She states that her ears felt full again and she started to check her blood pressure which was elevated. She states she typically does not take metoprolol all the time and she only takes it when her blood pressure is up. She does admit that she did not sit down and relax and do deep breathing before she took her blood pressure. She did take metoprolol 12.5 mg and Ativan p.o. She states this is what she is told to do. She does have a history of anxiety. Patient has not had fever, chills, cough. Patient states that she was thinking about following up with ENT for her ears because it has been an intermittent issue for the last month. Patient denies headache. Patient is not had nausea or vomiting. [facility] Medical History Abrasion of knee, bilateral Anxiety and depression Cataract Cystadenoma Elevated LFTs Essential hypertension María's disease History of coronary vasospasm History of left heart catheterization (08/10/19) History of non-ST elevation myocardial infarction (NSTEMI) History of supraventricular tachycardia History of uterine cancer History of uterine cancer IBS (irritable bowel syndrome) Personal history of colonic polyps Psoriasis Takotsubo cardiomyopathy Vitamin D deficiency Home Medications lorazepam 0.5 mg tablet 0.25 mg PO DAILY PRN tab 09/07/19 [History Last Taken Unknown] metoprolol tartrate 25 mg tablet 12.5 mg PO DAILY PRN tab 08/24/20 [History Last Taken Unknown] Allergy/AdvReac Type Severity Reaction Status Date / Time cortisone Allergy Severe Throat Verified 08/24/20 09:58 swelling nitrofurantoin Allergy Severe Irregular Verified 08/24/20 09:58 [From Macrobid] HB, vision changes, diaphoresis erythromycin base Allergy Intermediate Unknown Verified 08/24/20 09:58 meperidine [From Demerol] Allergy Intermediate Unknown Verified 08/24/20 09:58 Iodinated Contrast Media Allergy Rash Verified 08/24/20 09:58 [Iodinated Contrast Media - Oral and] iodine Allergy Rash Verified 08/24/20 09:58 Penicillins Allergy Rash Verified 08/24/20 09:58 Sulfa (Sulfonamide Allergy Rash Verified 08/24/20 09:58 Antibiotics) COBEX Allergy Anaphylaxis Uncoded 08/24/20 09:58 immunizations Allergy Unknown Uncoded 08/24/20 09:58 Family History Father , Age 90 Cancer prostate CAD (coronary artery disease) Pacemaker COPD (chronic obstructive pulmonary disease) Brother CAD (coronary artery disease) CABG x 5 Hypertension Heart disease Mother CAD (coronary artery disease) CABG Heart disease CVA (cerebral vascular accident) Cancer rectal Surgical History History of appendectomy History of benign breast tumor History of bilateral oophorectomy History of section History of colonoscopy History of hysterectomy History of tonsillectomy Social History Smoking Status: Never smoker alcohol intake: never substance use type: does not use caffeine: No what type of physical activity do you participate in: walking and weight training frequency: daily seatbelt use: always do you feel safe at home: Yes additional social history: - retired [employer] ROS ED Constitutional Constitutional ED: Denies chills or fever(s) Eyes Eyes: Reports other Details: Ear fullness and ringing ; Denies blurry vision or diplopia ENT ENT ED: Denies rhinorrhea Cardiovascular Cardiovascular: Reports palpitations; Denies chest pain Respiratory/Chest Respiratory/Chest: Denies cough or dyspnea Gastrointestinal Gastrointestinal: Denies abdominal pain, nausea or vomiting Genitourinary Genitourinary ED: Denies dysuria or hematuria Musculoskeletal Musculoskeletal: Denies arthralgias or myalgias Integumentary Denies abscess or rash Neurologic Neurologic: Denies headache(s) or paresthesias EXAM Physical Exam Const Vital Signs: 10/27/20 18:27 10/27/20 18:36 10/27/20 19:45 Temperature 97.5 F L Temperature Source Temporal Pulse Rate 104 H Respiratory Rate 20 H Respiratory Effort Normal Non-Labored Blood Pressure 185/83 H Blood Pressure Mean 117 Pulse Ox 100 Oxygen Delivery Method Room Air Room Air 10/27/20 20:00 10/27/20 21:26 Temperature 98 F Temperature Source Temporal Pulse Rate 72 84 Respiratory Rate 18 16 Respiratory Effort Blood Pressure 171/86 H 157/79 H Blood Pressure Mean 114 105 Pulse Ox 99 97 Oxygen Delivery Method Room Air Positive well nourished General Appearance ED: NAD; Negative for pallor HEENT Reports TM's clear and dry mucous membranes Negative for trauma Tympanic Membrane ED: Yes TM's clear Mouth ED: Yes dry mucous membranes Mouth: dry mucous membranes Eyes PERRL and EOMs intact bilaterally Neck supple Resp normal respiratory effort and clear to auscultation bilaterally Cardio regular rate and regular rhythm Extremity normal to inspection General Extremety ED: Negative for edema or tenderness General Extremity: Negative for edema Neuro oriented x3, CN's II-XII intact bilaterally and no sensory deficits noted Sensorium / Orientation: alert Motor Exam: strength 5/5 throughout Psych mental status grossly normal Skin no rashes or lesions noted and no wounds General Skin Exam: Negative for jaundice or pallor MDM MDM MDM Narrative Medical decision making narrative: Patient presenting with palpitations and ear fullness. She states that the ear fullness had been coming and going over the course of the month and then she stated that she thought maybe it was related to her heart that she was having anxiety and palpitations as well as some shortness of breath. Patient had an EKG performed on arrival and on my interpretation shows a sinus rhythm at 87 beats per minute with ST depressions in V3, V4, V5, V6. There are also subtle depressions in lead II and lead III. There are no ST elevations. This is new from her previous EKG on 11 August 2019. Patient's blood pressure was stated to be much higher at home and now it is currently 171/86. CBC is within normal limits. BMP shows that he is hyponatremic with a sodium 126 and her BUN/creatinine are normal. Her troponin did return at 484. She is already taking 6 baby aspirin prior to arrival. Chest x-ray on my interpretation shows no acute cardiopulmonary process and the radiologist does agree. Discussed the patient with Dr. Dubon who did the catheterization last year. He felt that she would likely not need another catheterization based on her previous findings however since her troponin is very elevated he did recommend admission and observation and trending her troponins. It is possible also that with her history of SVT she could be having rapid heart rate which caused some heart strain. He did not recommend heparin drip. She also has a history of Takotsubo which was last year. Patient was counseled on findings and amenable to staying in the hospital. Patient's blood pressure has responded and I do not believe the need to be addressed. Her heart rate and vital signs are otherwise normal. Patient be admitted in stabilized condition. Impression: 1. NSTEMI 2. Palpitations Lab Data Labs: Laboratory Results - last 24 hr 10/27/20 10/27/20 10/27/20 20:10 20:10 20:10 WBC 6.9 RBC 4.46 Hgb 13.0 Hct 37.8 MCV 84.8 MCH 29.1 MCHC 34.4 RDW Std Deviation 38.4 RDW Coeff of Lena 12.6 Plt Count 238 MPV 9.7 Immature Gran % (Auto) 0.300 Neut % (Auto) 68.1 Lymph % (Auto) 24.0 [place] % (Auto) 6.8 Eos % (Auto) 0.4 Baso % (Auto) 0.4 Absolute Neuts (auto) 4.7 Absolute Lymphs (auto) 1.66 Nucleated RBC % 0 Sodium 126 L Potassium 3.9 Chloride 93 L Carbon Dioxide 27.0 Anion Gap 6 BUN 15 Creatinine 0.67 Estim Creat Clear Calc 32.66 Est GFR (MDRD) Af Amer 110 Est GFR (MDRD) Non-Af 91 BUN/Creatinine Ratio 22.5 H Glucose 127 H Calcium 8.8 Troponin I High Sens 484 H* B-Natriuretic Peptide 93.6 Radiography Diagnostic Testing: Radiology Impression Chest X-Ray 10/27/20 18:36 IMPRESSION: Slight blunting left costophrenic angle. Otherwise normal exam. Consider PA and lateral views of the chest when patient is able. Electronically Signed: Shaquille Faulkner DO at 21:33 EDT Tel , Service support , Discharge Plan Triage Chief Complaint: Palpitations ED Provider: Micheal Schaeffer Dx/Rx/DC Orders Primary Care Provider: Cira Valdez
[2020-10-27 20:43] LABS: Anion Gap 6 (5-15); BUN 15 mg/dL (7-18); BUN/Creat Ratio 22.5 RATIO (10-20); Calcium,Total 8.8 mg/dL (8.5-10.1); Chloride 93 mmol/L (98-107); Creatinine, Serum 0.67 mg/dL (0.55-1.02); EST Glomerular Filtration Rate 91 mL/min (>60); Est Glom Filt Rate - Afr Amer 110 mL/min (>60); Estimated Creatinine Clearance 32.66 ml/min; Glucose 127 mg/dL (74-106); Potassium 3.9 mmol/L (3.5-5.1); Sodium Level 126 mmol/L (136-145); Troponin-I HS 484 pg/mL (3.0-54.0)
[2020-10-27 21:26] VITALS: BP 157/79; PULSE 84; RESP 16; TEMP 36.6; O2SAT 97
--- NOTE | 2020-10-27 21:30 | PCM.HP.STD ---
HPI - General General Date of Admission: 10/27/20 HPI Narrative MELISSA JORDAN, is a 80 F with a significant history of Takotsubo cardiomyopathy; anxiety disorder; and SVT who presents emergency department with ear fullness. Her ear fullness started a week before presentation. Her PCP thought that it may be due to Covid so patient had a Covid test which came back negative. On the day of presentation her ear fullness worsened so she came to emergency department for further care. She reported that concerns from her ear fullness made her anxious. She checked her blood pressure and her blood pressure was severely elevated with a systolic of 199. She took Ativan and metoprolol. At the emergency department her troponin was elevated. EKG showed ST depressions. Her sodium was low. Emergency department discussed the case with cardiology who recommend the patient stay at the hospital for her troponin to be trended. Reportedly patient has been taking multiple supplements and she sees a doctor for adrenal fatigue. [facility] Medical History (Updated 10/27/20 @ 22:48 by Vanessa Oquendo) Abrasion of knee, bilateral Anxiety and depression Cataract Cystadenoma Elevated LFTs Essential hypertension María's disease History of coronary vasospasm History of left heart catheterization (08/10/19) History of non-ST elevation myocardial infarction (NSTEMI) History of supraventricular tachycardia History of uterine cancer History of uterine cancer Hypothyroidism IBS (irritable bowel syndrome) Personal history of colonic polyps Psoriasis Takotsubo cardiomyopathy Vitamin D deficiency Home Medications lorazepam 0.5 mg tablet 0.25 mg PO DAILY PRN tab 09/07/19 [History Last Taken Unknown] metoprolol tartrate 25 mg tablet 12.5 mg PO DAILY PRN tab 08/24/20 [History Last Taken Unknown] Allergy/AdvReac Type Severity Reaction Status Date / Time cortisone Allergy Severe Throat Verified 08/24/20 09:58 swelling nitrofurantoin Allergy Severe Irregular Verified 08/24/20 09:58 [From Macrobid] HB, vision changes, diaphoresis erythromycin base Allergy Intermediate Unknown Verified 08/24/20 09:58 meperidine [From Demerol] Allergy Intermediate Unknown Verified 08/24/20 09:58 Iodinated Contrast Media Allergy Rash Verified 08/24/20 09:58 [Iodinated Contrast Media - Oral and] iodine Allergy Rash Verified 08/24/20 09:58 Penicillins Allergy Rash Verified 08/24/20 09:58 Sulfa (Sulfonamide Allergy Rash Verified 08/24/20 09:58 Antibiotics) COBEX Allergy Anaphylaxis Uncoded 08/24/20 09:58 immunizations Allergy Unknown Uncoded 08/24/20 09:58 Family History Father , Age 90 Cancer prostate CAD (coronary artery disease) Pacemaker COPD (chronic obstructive pulmonary disease) Brother CAD (coronary artery disease) CABG x 5 Hypertension Heart disease Mother CAD (coronary artery disease) CABG Heart disease CVA (cerebral vascular accident) Cancer rectal Surgical History History of appendectomy History of benign breast tumor History of bilateral oophorectomy History of section History of colonoscopy History of hysterectomy History of tonsillectomy Social History Smoking Status: Never smoker alcohol intake: never substance use type: does not use caffeine: No what type of physical activity do you participate in: walking and weight training frequency: daily seatbelt use: always do you feel safe at home: Yes additional social history: - retired ROS ROS Narrative Constitutional: Denies anorexia and change in weight Eyes: Denies blurry vision, change in eye color, change in vision, discharge from eye(s), double vision, erythema, eye pain, loss of vision or other HEENT: Reports ear fullness. Denies abnormal hearing, dysphagia, epistaxis, headache(s), hearing loss, nasal congestion, nasal discharge, post nasal drip, sore throat or other Cardiovascular: Reports palpitations. Denies chest pain. Denies dyspnea on exertion, orthopnea and paroxysmal nocturnal dyspnea Respiratory/Chest: Denies cough, excessive phlegm production, shortness of breath with exertion and wheezing Gastrointestinal: Denies abdominal pain, coffee ground emesis, constipation, diarrhea, dyspepsia, hematemesis, hematochezia, loose stools, melena, nausea, vomiting or other Genitourinary: Denies burning urination, difficulty urinating, dysuria, hematuria, nocturia, urinary frequency, urinary hesitancy, urinary incontinence, urinary urgency or other Musculoskeletal: Denies arthralgias, back pain, joint pain, joint stiffness, joint swelling, myalgias, neck pain or other Neurologic: Denies abnormal gait, abnormal speech, confusion, disequilibrium, dizziness, focal weakness, headache(s), numbness, paresthesias, seizure-like activity, seizures, syncope, tingling, tremor(s) or other Psychiatric: Reports anxiety. Denies depression, homicidal ideation, suicidal ideation or other Endocrinology: Denies change in body appearance, cold intolerance, excessive sweating, heat intolerance, polydipsia, polyuria or other Hematologic/Lymphatic: Denies anemia, easy bleeding, easy bruising, lymphadenopathy or other Integumentary: Denies rashes Allergic/Immunologic: Denies rhinitis, hives, eczema, asthma or other Vital Signs Vital Signs Vital Signs: 10/27/20 18:27 10/27/20 18:36 10/27/20 19:45 Temperature 97.5 F L Temperature Source Temporal Pulse Rate 104 H Respiratory Rate 20 H Respiratory Effort Normal Non-Labored Blood Pressure 185/83 H Blood Pressure Mean 117 Pulse Ox 100 Oxygen Delivery Method Room Air Room Air 10/27/20 20:00 10/27/20 21:26 Temperature 98 F Temperature Source Temporal Pulse Rate 72 84 Respiratory Rate 18 16 Respiratory Effort Blood Pressure 171/86 H 157/79 H Blood Pressure Mean 114 105 Pulse Ox 99 97 Oxygen Delivery Method Room Air Weight Weight: 45.359 kg Body Mass Index (BMI) 18.3 Physical Exam Narrative Physical exam: General: Well-nourished, well-developed. Head: Normocephalic, atraumatic, no tenderness Eyes: PERRLA, EOMI ENT, no trauma, moist mucous membranes, no rhinorrhea Neck: Nontender, full range of motion, no spinal tenderness, deformities, step-off CVS: Regular rate and rhythm. S1-S2 present. No murmur, gallop or rub. Respiratory : clear to auscultation bilaterally, chest wall nontender, no wheezing Abdomen: Soft, nontender, nondistended, normal bowel sounds, no masses : Deferred Back: Nontender, no CVA tenderness, no midline spinal tenderness, deformities, step-offs Extremities: Nontender full range of motion, no trauma Skin: Normal color, no trauma, abrasions Neuro: Alert, oriented, cranial nerves II through XII grossly intact. Psychiatry: Normal mood. Normal affect. Not depressed. Not anxious. Results Lab / Micro Data Result Diagrams: 10/27/20 20:10 10/27/20 20:10 Labs: Laboratory Results - last 24 hr 10/27/20 20:10: WBC 6.9, RBC 4.46, Hgb 13.0, Hct 37.8, MCV 84.8, MCH 29.1, MCHC 34.4, RDW Std Deviation 38.4, RDW Coeff of Lena 12.6, Plt Count 238, MPV 9.7, Immature Gran % (Auto) 0.300, Neut % (Auto) 68.1, Lymph % (Auto) 24.0, [place] % (Auto) 6.8, Eos % (Auto) 0.4, Baso % (Auto) 0.4, Absolute Neuts (auto) 4.7, Absolute Lymphs (auto) 1.66, Nucleated RBC % 0 10/27/20 20:10: Sodium 126 L, Potassium 3.9, Chloride 93 L, Carbon Dioxide 27.0, Anion Gap 6, BUN 15, Creatinine 0.67, Estim Creat Clear Calc 32.66, Est GFR (MDRD) Af Amer 110, Est GFR (MDRD) Non-Af 91, BUN/Creatinine Ratio 22.5 H, Glucose 127 H, Calcium 8.8, Troponin I High Sens 484 H* Assessment & Plan Assessment/Plan (1) Elevated troponin: (2) Hyponatremia: PLAN: Elevated troponin. High-sensitivity troponin was 484. Review of previous records showed troponin (not high-sensitivity in the range of 6.64 to 12.9). Actual EKG tracing reviewed showed ST depression in leads V3 through V6. Review of EKG taken on 11 August 2019 did not show this ST depressions. Cardiac catheterization note on 08/10/2019 showed left ventricular ejection fraction of 35%. And severe hypokinesis of the mid left ventricle with normal contraction of the apex and base of the left ventricle consistent with apical scarring Takotsubo cardiomyopathy. Coronary arteries showed mild luminal irregularities. Baby aspirin daily ordered. Trend troponin and if continually elevated consider consulting cardiology. We will keep n.p.o. for now. Hyponatremia Sodium of 126. Patient appears euvolemic at least with no signs of dehydration or hypovolemia. With history of heart failure IV fluids not initiated at this time. Will check urine osmolality; urine sodium; and serum osmolality. Check TSH and a.m. cortisol. Repeat BMP in a.m. and make further recommendations. Hypertension Blood pressure is not within goal Home metoprolol continued. As needed hydralazine ordered. Trend blood pressure and adjust blood pressure medications. Anxiety disorder Lorazepam continued Heart failure with reduced ejection fraction Appears stable. Metoprolol continued. Patient is unwilling to start any new medication unless discussed with her PCP. Will not start patient on lisinopril at this time. Review of cardiology notes writing on 08/24/2020 shows that patient was asked to take both beta-blockers and ALY inhibitor. However patient has been taking beta-kadi on as needed basis depending upon her blood pressure and she has not attempted the ALY inhibitor because of fear of hypotension. DVT prophylaxis: SCD ordered. Charges/Coding Multi Select Codes Visit Charges Observation E&M Codin Initial observation care L3
[2020-10-27 22:23] LABS: BNP,B-Type NATRIURETIC PEPTIDE 93.6 pg/mL (0-100)
[2020-10-27 22:36] VITALS: BMI 18.3
[2020-10-27 22:45] VITALS: BP 164/78; PULSE 76; RESP 18; TEMP 36.7; O2SAT 100
--- NOTE | 2020-10-27 22:46 | PCS.PANDOC ---
PANDEMIC DOCUMENTATION INITIATED: Date: 10/08/2020 Time: 7512
--- NOTE | 2020-10-27 22:49 | EKG12_ITS ---
Test Reason : CP ADMIT Blood Pressure : / mmHG Vent. Rate : 082 BPM Atrial Rate : 082 BPM P-R Int : 216 ms QRS Dur : 082 ms QT Int : 402 ms P-R-T Axes : 072 058 065 degrees QTc Int : 469 ms Sinus rhythm with 1st degree A-V block with Premature atrial complexes Nonspecific ST abnormality Abnormal ECG Confirmed by SAMANTHA WU, YANELI ([id number]), scientific publications editor ERNST GHOSH ([id number]) on 10/31/2020 9:33:08 AM Referred By: DR FERRARA Confirmed By:YANELI SINGH MD
[2020-10-27 23:08] VITALS: PULSE 81
[2020-10-27] MEDS: LORazepam 0.5 MG Tablet 0.25 MG PO (23:24)
[2020-10-28 00:32] LABS: Troponin-I HS 3540 pg/mL (3.0-54.0)
[2020-10-28 00:51] LABS: Urine Sodium 44 mmol/L (Not Establ.)
[2020-10-28 01:00] LABS: Osmolality, Serum 269 mOsm/KG (280-301)
[2020-10-28 01:08] LABS: Osmolality, Urine 178 mOsm/KG
[2020-10-28] MEDS: MELATONIN 3 MG TABLET PO (01:46)
[2020-10-28 02:19] LABS: Absolute Lymphocyte Count 1.61 X10^3/uL (0.83-4.51); Absolute Neutrophil Count 6.1 X10^3/uL (2.0-7.7); Basophil# 0.03 X10^3/uL; Basophil% 0.4 % (0-1); Eosinophil# 0.05 X10^3/uL; Eosinophils% 0.6 % (0-5); Hematocrit 36.2 % (37-47); Hemoglobin 12.3 g/dL (12.0-15.0); Lymphocyte # 1.61 X10^3/ul (0.83-4.51); Lymphocyte % 19.4 % (19-41); Mean Corpuscular Hgb 28.7 pg (27.0-32.0); Mean Corpuscular Volume 84.6 fL (81-99); Monocyte# 0.54 X10^3/uL; Monocyte% 6.5 % (0-10); NRBC Flagged by Analyzer 0 % (0-5); Neutrophil # 6.06 X10^3/uL (2.7-7.7); Neutrophil % 72.9 % (47-70); Platelet Count 233 K/mm3 (150-450); RBC Distribution Width CV 12.6 % (11.6-14.6); RBC Distribution Width SD 38.5 fl (35.1-43.9); Red Blood Count 4.28 M/mm3 (4.2-5.4); White Blood Count 8.3 K/mm3 (4.4-11.0)
[2020-10-28 02:47] LABS: Troponin-I HS 4038 pg/mL (3.0-54.0)
[2020-10-28 02:53] LABS: Anion Gap 5 (5-15); BUN 14 mg/dL (7-18); BUN/Creat Ratio 27.7 RATIO (10-20); Calcium,Total 8.6 mg/dL (8.5-10.1); Chloride 97 mmol/L (98-107); Cholesterol 175 mg/dL (200); EST Glomerular Filtration Rate 125 mL/min (>60); Est Glom Filt Rate - Afr Amer 151 mL/min (>60); Estimated Creatinine Clearance 32.77 ml/min; Glucose 120 mg/dL (74-106); High Density Lipoprotein 90 mg/dL; Potassium 3.8 mmol/L (3.5-5.1); Sodium Level 129 mmol/L (136-145); Thyroid Stim Hormone (TSH) 3.09 uIU/mL (0.358-3.74); Triglycerides 85 mg/dL; Very Low Density Lipoprotein 17 mg/dL (5-40)
[2020-10-28 03:01] VITALS: PULSE 65
[2020-10-28 04:45] VITALS: BP 132/80; PULSE 75; RESP 14; TEMP 37.1; O2SAT 98
[2020-10-28 06:59] VITALS: PULSE 76
[2020-10-28] MEDS: Aspirin E.C. 81 MG Tablet PO (08:46)
[2020-10-28 08:56] LABS: Uric Acid 3.2 mg/dL (2.6-6.0)
[2020-10-28 09:05] LABS: Troponin-I HS 2116 pg/mL (3.0-54.0)
[2020-10-28 11:18] VITALS: BP 153/81; PULSE 87; RESP 16; TEMP 36.4; O2SAT 100
[2020-10-28] MEDS: LORazepam 0.5 MG Tablet 0.25 MG PO (11:29)
--- NOTE | 2020-10-28 12:00 | NURSING ---
Addendum entered by Lorna See 10/28/20 12:58: This RN into room to speak with pt after lunch. Pt states at this time that she will stay and talk to conference interpreter. Original Note: Notified by Sadia Borrego RN that pt is wanting to leave AMA. This RN into room with Sadia Borrego RN to speak to pt. Pt stated For my anxiety I would be better off at home. I have avoided COVID for the past 18 months and now I am right in the middle of it in this environment. Educated pt on proper COVID precautions and protocols in place to prevent spread. Pt continued to be adamant that she leave and would be better off at home. Pt verbalized understanding to education and stated that she would like to eat her lunch first to see if conference interpreter showed up and if not she would be leaving because I will not stay another night here. Advised pt that she would be leaving AMA, pt verbalized understanding. Roscoe HARRY made aware and has been in to speak with pt about leaving AMA.
[2020-10-28 12:51] VITALS: BP 141/69; PULSE 81
[2020-10-28] MEDS: Metoprolol Tartrate 25 MG Tablet 12.5 MG PO (12:51)
[2020-10-28 14:54] VITALS: PULSE 86
--- NOTE | 2020-10-28 15:17 | PCM.CONS.C ---
Assessment & Plan Assessment/Plan (1) Elevated troponin: PLAN: Patient may have had Takotsubo cardiomyopathy again. It is very unlikely that she has significant CAD given her complete lack of cardiac symptoms and no significant coronary artery disease by angiogram last year. Vasospasm is also a possibility however with lack of anginal symptoms less likely. Patient says she has a history of SVT and it is possible that prior to coming to the hospital she had an episode of SVT. This could have also caused her troponin to go up. However she states that she did not have any persistent palpitations. She had a brief few beat episode of palpitations at most. Will be reasonable to keep the patient on a beta-kadi and ALY inhibitor she is very concerned about hypotension and in the past has refused to take ALY inhibitor. She is also concerned about a scheduled beta-kadi and will continue to take it on an as-needed basis. Telemetry also has revealed no significant arrhythmias. Patient is ambulating without any problems. She is also interested in going home which is very reasonable at this time. From a cardiac standpoint she can be discharged home and can follow-up with her primary bioinformatics analyst Dr. Al as an outpatient. HPI Consult Data Date of Consult: 10/28/20 HPI Narrative HPI Narrative: MELISSA JORDAN, is a 80 F who presents with ear fullness. She has history of coronary angiography 15 years ago and also last year that showed mild luminal irregularities in the coronary arteries. About 15 years ago she was told that she had vasospasm. Last year she was found to have Takotsubo cardiomyopathy. She has not been on ALY inhibitor as she has been very concerned about hypotension. She was supposed to take metoprolol but she takes it on an as-needed basis as she has noticed that even 12.5 mg of metoprolol taken when her blood pressure is around 110 systolic has dropped her blood pressure to the 80s and she is very concerned about this. Her blood pressure usually runs in the 110s systolic according to the patient. Patient has been having ear fullness for about 1 week. Yesterday she became concerned that this could be related to her heart and became very anxious. She does have history of anxiety also. At that time her blood pressure went to 199 systolic and this made her even more anxious. Her troponin went up to around 4000 and then has come down. She denies any cardiac complaints. Review of systems: All systems reviewed. All else is negative except that in [facility] Medical History (Updated 10/28/20 @ 15:[address] Indira Dubon MD) Abrasion of knee, bilateral Anxiety and depression Cataract Cystadenoma Elevated LFTs Essential hypertension María's disease History of coronary vasospasm History of left heart catheterization (08/10/19) History of non-ST elevation myocardial infarction (NSTEMI) History of supraventricular tachycardia History of uterine cancer History of uterine cancer Hypothyroidism IBS (irritable bowel syndrome) Personal history of colonic polyps Psoriasis Takotsubo cardiomyopathy Vitamin D deficiency Home Medications lorazepam 0.5 mg tablet 0.25 mg PO DAILY PRN tab 09/07/19 [History Last Taken Unknown] metoprolol tartrate 25 mg tablet 12.5 mg PO DAILY PRN tab 08/24/20 [History Last Taken Unknown] Allergy/AdvReac Type Severity Reaction Status Date / Time cortisone Allergy Severe Throat Verified 08/24/20 09:58 swelling nitrofurantoin Allergy Severe Irregular Verified 08/24/20 09:58 [From Macrobid] HB, vision changes, diaphoresis erythromycin base Allergy Intermediate Unknown Verified 08/24/20 09:58 meperidine [From Demerol] Allergy Intermediate Unknown Verified 08/24/20 09:58 Iodinated Contrast Media Allergy Rash Verified 08/24/20 09:58 [Iodinated Contrast Media - Oral and] iodine Allergy Rash Verified 08/24/20 09:58 Penicillins Allergy Rash Verified 08/24/20 09:58 Sulfa (Sulfonamide Allergy Rash Verified 08/24/20 09:58 Antibiotics) COBEX Allergy Anaphylaxis Uncoded 08/24/20 09:58 immunizations Allergy Unknown Uncoded 08/24/20 09:58 Family History Father , Age 90 Cancer prostate CAD (coronary artery disease) Pacemaker COPD (chronic obstructive pulmonary disease) Brother CAD (coronary artery disease) CABG x 5 Hypertension Heart disease Mother CAD (coronary artery disease) CABG Heart disease CVA (cerebral vascular accident) Cancer rectal Surgical History History of appendectomy History of benign breast tumor History of bilateral oophorectomy History of section History of colonoscopy History of hysterectomy History of tonsillectomy Social History Smoking Status: Never smoker alcohol intake: never substance use type: does not use caffeine: No what type of physical activity do you participate in: walking and weight training frequency: daily seatbelt use: always do you feel safe at home: Yes additional social history: - retired Physical Exam Const alert and oriented x3 Orientation / Consciousness: awake HEENT normocephalic Eyes no scleral icterus Resp normal respiratory effort Cardio regular rate Extremity no pedal edema Skin no rashes or lesions noted Neuro oriented x3 Psych mental status grossly normal Charges/Coding Visit Charges Inpatient E&M: 34094 Init Hosp L3 Objective Data Vital Signs: Vital Signs Temp Pulse Resp BP Pulse Ox 97.5 F L 86 16 141/69 H 100 10/28/20 11:18 10/28/20 14:54 10/28/20 11:18 10/28/20 12:51 10/28/20 11:18 Oxygen Delivery Method Room Air Weight: 100 lb 4.965 oz Body Mass Index (BMI) 18.3 Intake & Output: Intake and Output for Last 24 Hours 10/26/20 10/27/20 10/28/20 23:59 23:59 23:59 Intake Total 75 / 75 480 / 480 Output Total 475 / 475 Balance 75 / 75 5 / 5 Lab / Micro Data Result Diagrams: 10/28/20 02:07 10/28/20 02:07 Labs: Laboratory Results - last 24 hr 10/27/20 00:20: Urine Osmolality 178, Ur Random Sodium 44 10/27/20 20:10: WBC 6.9, RBC 4.46, Hgb 13.0, Hct 37.8, MCV 84.8, MCH 29.1, MCHC 34.4, RDW Std Deviation 38.4, RDW Coeff of Lena 12.6, Plt Count 238, MPV 9.7, Immature Gran % (Auto) 0.300, Neut % (Auto) 68.1, Lymph % (Auto) 24.0, [place] % (Auto) 6.8, Eos % (Auto) 0.4, Baso % (Auto) 0.4, Absolute Neuts (auto) 4.7, Absolute Lymphs (auto) 1.66, Nucleated RBC % 0 10/27/20 20:10: Sodium 126 L, Potassium 3.9, Chloride 93 L, Carbon Dioxide 27.0, Anion Gap 6, BUN 15, Creatinine 0.67, Estim Creat Clear Calc 32.66, Est GFR (MDRD) Af Amer 110, Est GFR (MDRD) Non-Af 91, BUN/Creatinine Ratio 22.5 H, Glucose 127 H, Calcium 8.8, Troponin I High Sens 484 H* 10/27/20 20:10: B-Natriuretic Peptide 93.6 10/27/20 23:15: Serum Osmolality 269 L 10/27/20 23:15: Troponin I High Sens 3540 H* 10/28/20 02:07: WBC 8.3, RBC 4.28, Hgb 12.3, Hct 36.2 L, MCV 84.6, MCH 28.7, MCHC 34.0, RDW Std Deviation 38.5, RDW Coeff of Lena 12.6, Plt Count 233, MPV 10.0, Immature Gran % (Auto) 0.200, Neut % (Auto) 72.9 H, Lymph % (Auto) 19.4, [place] % (Auto) 6.5, Eos % (Auto) 0.6, Baso % (Auto) 0.4, Absolute Neuts (auto) 6.1, Absolute Lymphs (auto) 1.61, Nucleated RBC % 0 10/28/20 02:07: Sodium 129 L, Potassium 3.8, Chloride 97 L, Carbon Dioxide 27.0, Anion Gap 5, BUN 14, Creatinine 0.50 L, Estim Creat Clear Calc 32.77, Est GFR (MDRD) Af Amer 151, Est GFR (MDRD) Non-Af 125, BUN/Creatinine Ratio 27.7 H, Glucose 120 H, Calcium 8.6, Triglycerides 85, Cholesterol 175, LDL Cholesterol 68, VLDL Cholesterol 17, HDL Cholesterol 90, TSH 3.09 10/28/20 02:07: Troponin I High Sens 4038 H* 10/28/20 05:26: Uric Acid 3.2 10/28/20 08:29: Troponin I High Sens 2116 H* Micro: Microbiology 10/27/20 21:25 Nasal Secretion SARS-CoV-2 Antigen (Rapid) - Final Cardiology Labs/Tests 10/27/20 20:10: WBC 6.9, RBC 4.46, Hgb 13.0, Hct 37.8, MCV 84.8, MCH 29.1, MCHC 34.4, Plt Count 238, MPV 9.7, Immature Gran % (Auto) 0.300, Neut % (Auto) 68.1, Lymph % (Auto) 24.0, [place] % (Auto) 6.8, Eos % (Auto) 0.4, Baso % (Auto) 0.4, Absolute Neuts (auto) 4.7, Nucleated RBC % 0 10/27/20 20:10: Sodium 126 L, Potassium 3.9, Chloride 93 L, Carbon Dioxide 27.0, Anion Gap 6, BUN 15, Creatinine 0.67, Est GFR (MDRD) Af Amer 110, Est GFR (MDRD) Non-Af 91, BUN/Creatinine Ratio 22.5 H, Glucose 127 H, Calcium 8.8 10/27/20 20:10: B-Natriuretic Peptide 93.6 10/27/20 23:15: Serum Osmolality 269 L 10/28/20 02:07: WBC 8.3, RBC 4.28, Hgb 12.3, Hct 36.2 L, MCV 84.6, MCH 28.7, MCHC 34.0, Plt Count 233, MPV 10.0, Immature Gran % (Auto) 0.200, Neut % (Auto) 72.9 H, Lymph % (Auto) 19.4, [place] % (Auto) 6.5, Eos % (Auto) 0.6, Baso % (Auto) 0.4, Absolute Neuts (auto) 6.1, Nucleated RBC % 0 10/28/20 02:07: Sodium 129 L, Potassium 3.8, Chloride 97 L, Carbon Dioxide 27.0, Anion Gap 5, BUN 14, Creatinine 0.50 L, Est GFR (MDRD) Af Amer 151, Est GFR (MDRD) Non-Af 125, BUN/Creatinine Ratio 27.7 H, Glucose 120 H, Calcium 8.6, Triglycerides 85, Cholesterol 175, LDL Cholesterol 68, VLDL Cholesterol 17, HDL Cholesterol 90 10/28/20 05:26: Uric Acid 3.2 Rhythm: EKG: ECHO: Stress Test: Cardiac Cath: PCI: CT Surgery: Holter monitor: EPS: PPM: CXR: Chest CT Scan: Radiography Diagnostic Testing: Radiology Impression Chest X-Ray 10/27/20 18:36 IMPRESSION: Slight blunting left costophrenic angle. Otherwise normal exam. Consider PA and lateral views of the chest when patient is able. Electronically Signed: Shaquille Faulkner DO at 21:33 EDT Tel , Service support ,
--- NOTE | 2020-10-28 15:28 | PCM.DC ---
Discharge Instructions Diet Discharge Diet: No restrictions Activity Discharge Activity: Return to Normal Activity Weight Bearing Status: Weight bearing as tolerated Dressing / Incision Call your doctor if you observe: Fever of 101 or Higher, Numbness or Tingling, Shortness of breath, Dizziness, Chest pain, Increased palpitations (irregular heartbeat) and Calf discomfort Follow Up Care Please Follow Up With: Primary care provider When: Within the next two weeks. Test Results: Test results from this visit will be discussed in further detail at your follow-up appointment, if applicable. Discharge Plan Admission Admit Date/Time: 10/27/20 21:29 Primary Reason for Your Visit: Elevated troponin Attending Provider: Jhonatan Garnett Primary Care Provider: Cira Valdez Consulting Providers: Indira Dubon Discharge Orders/Prescriptions Prescriptions: Continued lorazepam 0.5 mg tablet 0.25 mg PO DAILY PRN (Reason: anxiety) RF: 0 metoprolol tartrate 25 mg tablet 12.5 mg PO DAILY PRN (Reason: Anxiety) RF: 0 Referrals / Follow Up: Cira Valdez DO [Primary Care Provider] - Within 2 Weeks Alex Al MD [STAFF PHYSICIAN] - Within 2 Weeks Disposition Disposition (needs filled in before D/C Order can be placed): Home, Self Care
--- NOTE | 2020-10-28 15:30 | DS.PCM_ITS ---
Documented by User: Reuben HARRY 10/28/20 15:51 Providers Date of Admission: 10/27/20 Primary Care Physician: Dr. Cira Valdez, Consultations 10/28/20 00:42 Consult: Cardiology Routine Consulting Provider: Indira Dubon Reason for Consult: elevated troponin EMERGENT Consult: No MD Notified: Yes Date Notified: 10/28/20 Time Notified: 00:42 Method of Notification: Text Method of Consult:: In-Person Comments:: ED doc discussed with Dr. Dubon Reason For Visit: ELEVATED TROPONIN, HYPONATREMIA Diagnosis Discharge Diagnosis (1) Elevated troponin: Status: Acute Code(s): R77.8 - Other specified abnormalities of plasma proteins Medications at Discharge Home Medications lorazepam 0.5 mg tablet 0.25 mg PO DAILY PRN tab 09/07/19 metoprolol tartrate 25 mg tablet 12.5 mg PO DAILY PRN tab 08/24/20 Hospital Course Summary of Care Provided Minutes Spent on Discharge: 35 Hospital Course: Disposition: Patient to discharge home, no home health care needs or additional therapies identified. 1) Elevated troponin Troponins consistently elevated throughout admission at 484, 3540, 4038 and 2116. EKG in the ED initially showed ST depressions, although telemetry monitoring overnight revealed no significant arrhythmias. Cardiology was consulted and determined that no additional work-up was necessary at this time, patient should continue on current medications and she should follow-up with Dr. Al as an outpatient. Given the lack of cardiac symptoms or events on cardiac monitoring and history of previous catheterizations concern for new CAD was low. Cardiology believes that patient may have suffered Takotsubo cardiomyopathy again. Plan; continue current medications, follow-up with [facility] care provider and cardiology within the next 2 weeks. 2) hyponatremia Replaced. Patient seen by Reuben Benson PA-C, under the supervision of Dr. Garnett. Physical Exam Narrative Patient is a 80-year-old female comfortably resting in bed, alert and oriented x3. Patient denies any development of symptoms in the past 24 hours. Denies chest pain, shortness of breath, palpitations, hemoptysis, sputum production, fever, chills, N/V/D. Const alert, oriented x3 and no apparent distress HEENT normocephalic, head/scalp atraumatic and hearing grossly normal bilaterally Eyes PERRL, EOMs intact bilaterally and conjunctivae normal Neck no lymphadenopathy, supple and no JVD Resp normal respiratory effort, no retractions, no use of accessory muscles and clear to auscultation bilaterally Cardio regular rate, regular rhythm, no murmurs and no JVD GI normal to inspection, nondistended, normoactive bowel sounds, soft to palpation and non-tender Extremity normal to inspection, full ROM and no clubbing, cyanosis or edema Skin no rashes or lesions noted, no wounds and skin turgor normal Neuro CN's II-XII intact bilaterally Psych affect normal Weight / BMI Weight Weight: 100 lb 4.965 oz Body Mass Index (BMI) 18.3 ABG / Lab / Microbiology Data Result Diagrams: 10/28/20 02:07 10/28/20 02:07 Laboratory: Laboratory Results - last 24 hr 10/27/20 00:20: Urine Osmolality 178, Ur Random Sodium 44 10/27/20 20:10: WBC 6.9, RBC 4.46, Hgb 13.0, Hct 37.8, MCV 84.8, MCH 29.1, MCHC 34.4, RDW Std Deviation 38.4, RDW Coeff of Lena 12.6, Plt Count 238, MPV 9.7, Immature Gran % (Auto) 0.300, Neut % (Auto) 68.1, Lymph % (Auto) 24.0, [place] % ( Auto) 6.8, Eos % (Auto) 0.4, Baso % (Auto) 0.4, Absolute Neuts (auto) 4.7, Absolute Lymphs (auto) 1.66, Nucleated RBC % 0 10/27/20 20:10: Sodium 126 L, Potassium 3.9, Chloride 93 L, Carbon Dioxide 27.0, Anion Gap 6, BUN 15, Creatinine 0.67, Estim Creat Clear Calc 32.66, Est GFR (MDRD) Af Amer 110, Est GFR (MDRD) Non-Af 91, BUN/Creatinine Ratio 22.5 H, Glucose 127 H, Calcium 8.8, Troponin I High Sens 484 H* 10/27/20 20:10: B-Natriuretic Peptide 93.6 10/27/20 23:15: Serum Osmolality 269 L 10/27/20 23:15: Troponin I High Sens 3540 H* 10/28/20 02:07: WBC 8.3, RBC 4.28, Hgb 12.3, Hct 36.2 L, MCV 84.6, MCH 28.7, MCHC 34.0, RDW Std Deviation 38.5, RDW Coeff of Lena 12.6, Plt Count 233, MPV 10.0, Immature Gran % (Auto) 0.200, Neut % (Auto) 72.9 H, Lymph % (Auto) 19.4, [place] % (Auto) 6.5, Eos % (Auto) 0.6, Baso % (Auto) 0.4, Absolute Neuts (auto) 6.1, Absolute Lymphs (auto) 1.61, Nucleated RBC % 0 10/28/20 02:07: Sodium 129 L, Potassium 3.8, Chloride 97 L, Carbon Dioxide 27.0, Anion Gap 5, BUN 14, Creatinine 0.50 L, Estim Creat Clear Calc 32.77, Est GFR (MDRD) Af Amer 151, Est GFR (MDRD) Non-Af 125, BUN/Creatinine Ratio 27.7 H, Glucose 120 H, Calcium 8.6, Triglycerides 85, Cholesterol 175, LDL Cholesterol 68, VLDL Cholesterol 17, HDL Cholesterol 90, TSH 3.09 10/28/20 02:07: Troponin I High Sens 4038 H* 10/28/20 05:26: Uric Acid 3.2 10/28/20 08:29: Troponin I High Sens 2116 H* Microbiology: Microbiology 10/27/20 21:25 Nasal Secretion SARS-CoV-2 Antigen (Rapid) - Final Radiography Diagnostic Testing: Radiology Impression Chest X-Ray 10/27/20 18:36 IMPRESSION: Slight blunting left costophrenic angle. Otherwise normal exam. Consider PA and lateral views of the chest when patient is able. Electronically Signed: Shaquille Faulkner DO at 21:33 EDT Tel , Service support , D/C Instructions Discharge Diet: No restrictions Weight Bearing Status: Weight bearing as tolerated Call your doctor if you observe: Fever of 101 or Higher, Numbness or Tingling, Shortness of breath, Dizziness, Chest pain, Increased palpitations (irregular heartbeat) and Calf discomfort Please Follow Up With: Primary care provider When: Within the next two weeks. Meaningful Use Info Meaningful Use Diagnoses (Choose all that apply): None applicable Discharge Plan Admission Admit Date/Time: 10/27/20 21:29 Primary Reason for Your Visit: Elevated troponin Attending Provider: Jhonatan Garnett Primary Care Provider: Cira Valdez Consulting Providers: Indira Dubon Discharge Orders/Prescriptions Prescriptions: Continued lorazepam 0.5 mg tablet 0.25 mg PO DAILY PRN (Reason: anxiety) RF: 0 metoprolol tartrate 25 mg tablet 12.5 mg PO DAILY PRN (Reason: Anxiety) RF: 0 Referrals / Follow Up: Cira Valdez DO [Primary Care Provider] - Within 2 Weeks Alex Al MD [STAFF PHYSICIAN] - Within 2 Weeks Disposition Disposition (needs filled in before D/C Order can be placed): Home, Self Care Documented by User: Dr. Jhonatan Garnett DO 10/28/20 16:04 Providers Date of Admission: 10/27/20 Reason For Visit: ELEVATED TROPONIN, HYPONATREMIA Medications at Discharge Home Medications lorazepam 0.5 mg tablet 0.25 mg PO DAILY PRN tab 09/07/19 metoprolol tartrate 25 mg tablet 12.5 mg PO DAILY PRN tab 08/24/20 Hospital Course Summary of Care Provided Minutes Spent on Discharge: 32 Hospital Course: This is a 80-year-old female presents with ear fullness. Patient was found to have elevated troponins of 400 that 1 up to 4000. Patient has a history of Takotsubo cardiomyopathy. Cardiology was consulted and evaluated the patient. The suspected may be a possible vasospasm but that seem less likely given the lack of anginal symptoms. Suspect patient may have had an episode of SVT may have caused her troponins to go up. Patient is apprehensive about taking medications and takes metoprolol as needed. Would be helpful if she were taken on a scheduled basis. Patient is more concerned about her functional medicine physicians who gave her copious amounts of supplements. Patient states that she has been told by 4 different doctors not to get vaccinated for COVID- 19. She states that all for these doctors themselves have not been vaccinated. Strongly encourage patient to get vaccinated given her age and relative frailty as the the risk of Covid far outweigh any potential risks of the vaccine. Patient has no desire to get the COVID-19 vaccine. Patient will be discharged home in stable condition. Physical Exam Const alert General Appearance: cooperative Resp normal respiratory effort, no retractions and no use of accessory muscles Cardio regular rate, regular rhythm, S1 normal heart sound and S2 normal heart sound GI normal to inspection, nondistended, normoactive bowel sounds, soft to palpation, non-tender and non-distended ABG / Lab / Microbiology Data Result Diagrams: 10/28/20 02:07 10/28/20 02:07 Discharge Plan Admission Admit Date/Time: 10/27/20 21:29 Primary Reason for Your Visit: Elevated troponin Attending Provider: Jhonatan Garnett Primary Care Provider: Cira Valdez Consulting Providers: Indira Dubon Discharge Orders/Prescriptions Prescriptions: Continued lorazepam 0.5 mg tablet 0.25 mg PO DAILY PRN (Reason: anxiety) RF: 0 metoprolol tartrate 25 mg tablet 12.5 mg PO DAILY PRN (Reason: Anxiety) RF: 0 Referrals / Follow Up: Cira Valdez DO [Primary Care Provider] - Within 2 Weeks Alex Al MD [STAFF PHYSICIAN] - Within 2 Weeks Disposition Disposition (needs filled in before D/C Order can be placed): Home, Self Care Charges/Coding Visit Charges Inpatient E&M: 56579 Disch Hosp
== END 2020-10-28 16:30 | disposition home or self-care (01) ==
LOC: ED 19:47 → PCU 21:47
PROVIDERS: Admitting Provider Hospitalist; Emergency Provider Student in an Organized Health Care Education/Training Program; PCP Internal Medicine
DX: R77.8 Other specified abnormalities of plasma proteins (principal); R00.2 Palpitations; R06.02 Shortness of breath; R79.89 Other specified abnormal findings of blood chemistry; I50.22 Chronic systolic (congestive) heart failure; E22.2 Syndrome of inappropriate secretion of antidiuretic hormone; F41.9 Anxiety disorder, unspecified; E06.3 Autoimmune thyroiditis; I25.2 Old myocardial infarction; I50.20 Unspecified systolic (congestive) heart failure; I11.0 Hypertensive heart disease with heart failure
CPT/HCPCS: 36415; 71045; 80048; 80061; 82533; 83880; 83930; 83935; 84300; 84443; 84484; 84550; 85025; 87426; 93005; 99218; 99285; A4216; G0378

== ENCOUNTER → 2020-11-20 12:54 | Outpatient (CLI) | payer MEDICARE, SELFPAY ==
--- NOTE | 2020-11-20 12:56 | ECHOD_ITS ---
Reason For Study: Dyspnea/SOB Procedure This was a 2D Doppler, Color Flow transthoracic echocardiogram. The study was technically difficult. Exam performed in department. Left Ventricle Normal LV size. Left ventricular systolic function is normal. The estimated ejection fraction is 65 %. No regional wall motion abnormalities noted. Right Ventricle Normal RV size. Normal systolic function. Atria Normal left atrium. Normal right atrium. No doppler evidence for ASD. Mitral Valve There is no mitral annular calcification. Mild diffuse mitral valve thickening. Mild mitral valve prolapse. Trivial mitral valve insufficiency. Tricuspid Valve Normal tricuspid valve. Mild to moderate (1-2+) eccentric tricuspid valve insufficiency. Right ventricular systolic pressure estimated to be 38 mmHg. Aortic Valve Trisinus/trileaflet aortic valve. Normal aortic valve. Trivial aortic valve insufficiency. Pulmonic Valve The pulmonic valve is not well visualized. Great Vessels The aortic root is not well visualized. Pericardium/Pleural Trivial pericardial effusion. There are no echocardiographic indications of cardiac tamponade. MMode/2D Measurements & Calculations LVIDd: 3.5 cm IVSd: 0.67 cm LA dimension: 2.9 cm LVIDs: 2.1 cm LVPWd: 0.86 cm FS: 40.8 % LAV(MOD-bp): 37.1 ml LA A4 area: 15.9 cm2 RA A4 area: 13.2 cm2 LAV(MOD-bp) Indexed: 26.0 ml/m2 LAV(MOD-sp2): 30.7 ml LAV(MOD-sp4): 42.5 ml Time Measurements MV dec time: 0.19 sec Doppler Measurements & Calculations MV E max chan: 132.1 cm/sec Lat Peak E' Chan: 6.6 cm/sec Med Peak E' Chan: 10.7 cm/sec MV A max chan: 108.7 cm/sec E/E' lat: 19.9 E/E' med: 12.3 MV E/A: 1.2 MV V2 max: 141.9 cm/sec MV P1/2t max chan: 143.2 cm/sec Ao V2 max: 132.0 cm/sec MV max P.1 mmHg MV P1/2t: 82.8 msec Ao max P.0 mmHg MV V2 mean: 82.8 cm/sec MV dec slope: 506.6 cm/sec2 MV mean P.2 mmHg MVA(P1/2t): 2.7 cm2 MV V2 VTI: 37.0 cm AI max chan: 419.7 cm/sec LV V1 max: 95.4 cm/sec PA V2 max: 105.9 cm/sec AI max P.5 mmHg LV V1 max P.6 mmHg AI dec slope: 343.6 cm/sec2 AI P1/2t: 357.8 msec TR max chan: 295.9 cm/sec TR max P.0 mmHg ECHO/Echo Complete Interpretation Summary The study was technically difficult. Left ventricular systolic function is normal. The estimated ejection fraction is 65 %. Mild mitral valve prolapse. Mild diffuse mitral valve thickening. Trivial mitral valve insufficiency. Mild to moderate (1-2+) eccentric tricuspid valve insufficiency. Trivial aortic valve insufficiency. Trivial pericardial effusion. There are no echocardiographic indications of cardiac tamponade. Right ventricular systolic pressure estimated to be 38 mmHg. Transmitral diastolic flow velocities suggest diastolic dysfunction (pseudonorm al pattern). Ordering Physician: Norma Boyce Referring Physician: Cira Valdez M.D. Performed By: Jb Phan RCS
== END ==
PROVIDERS: PCP Internal Medicine; Referring Provider Physician Assistant Medical; Visit Provider Physician Assistant Medical
DX: I25.2 Old myocardial infarction (principal); I51.81 Takotsubo syndrome; R06.00 Dyspnea, unspecified; R06.02 Shortness of breath
CPT/HCPCS: 93306

== ENCOUNTER → 2021-07-16 | Outpatient (CLI) | payer MEDICARE, SELFPAY | END | disposition home or self-care (01) | LOC: LABSPEC 12:31 | PROVIDERS: PCP Internal Medicine; Referring Provider Physician Assistant Surgical; Visit Provider Physician Assistant Surgical | DX: J02.9 Acute pharyngitis, unspecified (principal) | CPT/HCPCS: 87081 ==

== ENCOUNTER → 2022-12-17 | Outpatient (CLI) | payer MEDICARE, SELFPAY ==
--- NOTE | 2022-12-17 08:03 | BI_ITS ---
MAMMOGRAPHY - BILATERAL SCREENING REASON FOR EXAM: Female, 82 years old. Routine annual screening examination. PERTINENT HISTORY: Non-contributory. Remote left excisional breast biopsy. TECHNIQUE: Digital bilateral breast donte (3D mammographic acquisition) in the CC and MLO projections. 2-D mediolateral oblique (MLO) and craniocaudad (CC) views of both breasts were obtained. CAD: Full Field Digital Mammography with Computer Added Detection was performed. COMPARISON: Comparison is made with prior study dated October 29, 2018 and February 20, 2010. FINDINGS: Breast Composition: The breasts are extremely dense, which lowers the sensitivity of mammography. There are no dominant masses or suspicious calcifications. No other significant abnormalities are identified. There has been no significant change since the prior study. BI/SCRN MAMM (CAD)W/DONTE BILAT IMPRESSION: Stable bilateral screening mammogram. Yearly follow-up mammogram recommended. (A) ASSESSMENT CATEGORY: BIRADS Category 1: Negative. A letter regarding these results will be sent to the patient by the facility within 30 days. Approximately 10% of breast cancers are not detected by mammography. A normal mammogram should not delay biopsy of a clinically suspicious abnormality. [id number] Electronically Signed: Alvarez Wilson MD at 9:23 EDT ,
== END | disposition home or self-care (01) ==
LOC: OPBI 08:01
PROVIDERS: PCP Internal Medicine; Visit Provider Internal Medicine
DX: Z12.31 Encounter for screening mammogram for malignant neoplasm of breast (principal)
CPT/HCPCS: 77063; 77067

== ENCOUNTER → 2023-01-05 | Outpatient (CLI) | payer MEDICARE, SELFPAY | END | disposition home or self-care (01) | PROVIDERS: PCP Internal Medicine; Visit Provider Physician Assistant | DX: N39.0 Urinary tract infection, site not specified (principal); R31.9 Hematuria, unspecified | CPT/HCPCS: 87086; 87088 ==

== ENCOUNTER 2023-06-02 10:00 | Outpatient (RCR) | payer MEDICARE, SELFPAY ==
--- NOTE | 2023-05-21 14:30 | HP.PTEVAL_ITS ---
Patient's Visit Information Visit Information Visit Information: MELISSA JORDAN is a 83 year old F referred to Physical Therapy by Dr. Cira Valdez DO with a diagnosis of URINARY INCONTINENCE. Date of Evaluation: 05/21/23 Physical Therapist: Shannan Marion PT, Cert MDT Visit Plan Frequency: 1x/Week Duration: 3-4 WKS Plan: BLADDER TRAINING. HEALTHY BLADDER HABIT EDUCATION. 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 GOLFING A COUPLE DAYS A WK IN THE SUMMER. TENNIS A L ITTLE BIT IN THE SUMMER. WALKING 5-6 DAYS A WEEK OUTSIDE YEAR ROUND. HIKING. SWIMMING OUTDOORS IN THE SUMMER. Present symptoms: COUPLE TIMES IN THE PAST YEAR WASN'T ABLE TO MAKE IT TO THE BATHROOM IN TIME. HAD THE URGE FIRST, THEN STARTED TO HEAD TO THE BATHROOM COULDN'T MAKE IT IN TIME. LAST EPISODE WAS ABOUT 4 MONTHS AGO. Present since: ABOUT A YEAR AGO WAS FIRST EPISODE Pain Scale: N/A Is it getting better, worse or staying the same: STAYING THE SAME Commenced as a result of: NO APPARENT REASON TRIGGERS: ONCE COOKING, ONCE WALKING UP THE STAIRS AND THEN IT OCCURED WHEN SHE SAW THE BATHROOM. Disturbed sleep: GETTING UP TO URINE 0-1 TIMES A NIGHT. Previous history/Previous treatment: UTI 2-3 MO AGO TREATED WITH ANTIBIOTIC. Treatment this episode: NONE Coughing/sneezing/straining: NEGATIVE FOR UI Gait: NORMAL How long can you delay the need to urinate: NORMALLY LONG NEEDED TO MAKE IT TO THE BATHROOM IN TIME. Prolapse (Falling out feeling): NO Frequency of Urination: ABOUT 5-6 TIMES A DAY FLUID INTAKE: NORMALLY ABOUT 50 OZ A DAY. Ability to stop urine flow: YES Ability to initiate urine stream: YES Dyspareunia: N/A Bowel Incontinence: NO Accidents: NO Unexplained weight loss: NO Imaging: NONE RECENT PMH/Recent major surgery: UTERINE CANCER AGE 76 - TREATED WITH SX - NO CHEMO OR RADIATION. 2007 - RIGHT OVERY REMOVED. 3 HEART ATTACKS 2004, 2020, 2021. SEEE FUTHER HISTORY BELOW - HEART DZ. OSTEOPENIA. ANXIETY DISORDER. ANDRENAL FATIGUE STAGE IV. EARLY MENAPAUSE AGE 39. SMALL DIAPHRAGM. 2 PREGNANCIES - ONE mis carriage and one . Objective Objective: Sitting/Standing Posture: GOOD. REDUCED LORDOSIS. ABLE TO MAINTAIN PROPER POSTURE WITHOUT CUEING OR SUPPORT. Other Observations: INDEP GAIT AND TRANSFERS. Sensory deficit: VALDO LE LIGHT TOUCH SENSATION GROSSLY INTACT AND SYMMETRICAL ROM deficit: VALDO LE'S WFL Motor deficit: VALDO LE'S WFL Dural Signs: NEGATIVE VALDO LE'S. Lumbar mvmt loss: flex - NIL ext - MOD R SG - MIN TO MOD L SG - MIN TO MOD Core strength: GOOD FUNCTIONAL SCREEN: Incontinence Impact Questionnaire Score: 0 Urogenital Distress Inventory Score: 0 Goals Goal 1:: PATIENT WILL BE ABLE TO VERBALIZE 4 OUT OF 5 STRATEGIES TO EMPLOY TO AVOID URGE INCONTINENCE. Goal Time Frame: 4-6 Weeks Goal 2:: PATIENT WILL SUCCESSFULLY DELAY VOIDING LONG NEEDED WHEN URGENCY OCCURS TO SUCCESSFULLY MAKE IT TO THE BATHROOM IN TIME FOR 3 WEEKS. Goal Time Frame: 4-6 Weeks Rehabilitation Potential Physical Therapy Diagnosis: URGE INCONTINENCE Rehabilitation Potential: Excellent Anticipated Interventions Patient/Client Instruction: Educate patient on: Condition, Plan of Care and Risk Factors For the Purpose of:: To improve self management Therapeutic Exercise to Include: Neuromotor development Comment: BLADDER TRAINING. Text: Thank you for the opportunity to evaluate your patient. For Medicare and Medicare HMO plans, please review the plan of care and approve it. It will need to be FAXED BACK to us at [phone] for Medicare purposes. For Medicare only, by signing this I certify the plan of care. Please let me know if there are questions or concerns regarding this plan of care. Physician Signature: Date:
== END 2023-06-02 19:00 | disposition home or self-care (01) ==
LOC: PT 10:00
PROVIDERS: PCP Internal Medicine; Referring Provider Internal Medicine; Visit Provider Internal Medicine
DX: R32 Unspecified urinary incontinence (principal)
CPT/HCPCS: 97162; 97530

== ENCOUNTER → 2023-06-09 | Outpatient (CLI) | payer MEDICARE, SELFPAY ==
--- NOTE | 2023-06-09 09:53 | ECHOD_ITS ---
Reason For Study: Hx Takotsubo CMP Procedure This was a 2D Doppler, Color Flow transthoracic echocardiogram. Exam performed in department. Left Ventricle Normal LV size. Left ventricular systolic function is normal. The estimated ejection fraction is 64 %. No regional wall motion abnormalities noted. Right Ventricle Normal RV size. Normal systolic function. Atria Normal left atrium. Normal right atrium. Mitral Valve Normal mitral valve. Mild (1+) eccentric mitral valve insufficiency. Tricuspid Valve Normal tricuspid valve. Mild (1+) tricuspid valve insufficiency. Pulmonary artery systolic pressure is 33 mmHg. Aortic Valve Normal aortic valve. Trisinus/trileaflet aortic valve. Pulmonic Valve Normal pulmonic valve. Great Vessels Normal aortic root. The pulmonary artery is normal size. Normal inferior vena cava. Pericardium/Pleural No pericardial effusion. MMode/2D Measurements & Calculations LVIDd: 3.1 cm IVSd: 0.86 cm Ao root diam: 2.7 cm LVIDs: 2.3 cm LVPWd: 0.77 cm RVDd: 3.1 cm FS: 26.8 % LAV(MOD-bp): 44.9 ml LVAd ap4: 23.6 cm2 LVAd ap2: 21.8 cm2 LAV(MOD-bp) Indexed: 31.5 ml/m2 LVLd ap4: 7.3 cm LVLd ap2: 7.2 cm LAV(MOD-sp2): 45.7 ml EDV(MOD-sp4): 65.5 ml EDV(MOD-sp2): 55.6 ml LAV(MOD-sp4): 40.5 ml EDV(sp4-el): 65.2 ml EDV(sp2-el): 56.3 ml LVAs ap4: 13.3 cm2 LVAs ap2: 10.8 cm2 LVLs ap4: 6.3 cm LVLs ap2: 6.5 cm ESV(MOD-sp4): 23.8 ml ESV(MOD-sp2): 15.9 ml ESV(sp4-el): 23.6 ml ESV(sp2-el): 15.3 ml EF(MOD-sp4): 63.7 % EF(MOD-sp2): 71.5 % EF(sp4-el): 63.8 % SV(MOD-sp4): 41.7 ml SV(MOD-sp2): 39.8 ml SV(sp4-el): 41.6 ml LA dimension(2D): 3.6 cm LA A4 area: 15.1 cm2 RA A4 area: 16.2 cm2 TAPSE: 2.8 cm Time Measurements MV dec time: 0.18 sec Doppler Measurements & Calculations MV E max chan: 108.9 cm/sec Lat Peak E' Chan: 6.2 cm/sec Med Peak E' Chan: 6.9 cm/sec MV A max chan: 77.7 cm/sec E/E' lat: 17.7 E/E' med: 15.7 MV E/A: 1.4 MV dec slope: 620.6 cm/sec2 Ao V2 max: 124.7 cm/sec AI max chan: 411.9 cm/sec Ao max P.2 mmHg AI max P.9 mmHg Ao V2 mean: 81.5 cm/sec AI dec slope: 236.6 cm/sec2 Ao mean P.1 mmHg AI P1/2t: 510.0 msec Ao V2 VTI: 32.0 cm AV (velocity ratio): 0.75 LV V1 max: 106.2 cm/sec PA V2 max: 99.8 cm/sec PI end-d chan: 74.1 cm/sec LV V1 max P.5 mmHg LV V1 mean P.3 mmHg LV V1 mean: 71.6 cm/sec LV V1 VTI: 23.9 cm TR max chan: 271.8 cm/sec TR max P.6 mmHg ECHO/Echo Complete Interpretation Summary Normal LV size. Left ventricular systolic function is normal. The estimated ejection fraction is 64 %. Mild (1+) eccentric mitral valve insufficiency. Ordering Physician: Cira Valdez Referring Physician: Cira Valdez Performed By: Laura Phillips IGOR
--- NOTE | 2023-06-09 10:47 | CDU_ITS ---
Reason For Study: Carotid Stenosis Rt. Velocities/BP Lt. Velocities/BP Prox CCA 48.7/5.3 cm/sec. Prox CCA 82.8/13.8 cm/sec. Mid CCA 61.0/11.9 cm/sec. Mid CCA 72.4/13.8 cm/sec. Dist CCA 50.6/10.0 cm/sec. Dist CCA 60.1/11.9 cm/sec. Prox ICA 43.1/10.0 cm/sec. Prox ICA 61.0/10.0 cm/sec. Mid ICA 53.5/13.8 cm/sec. Mid ICA 59.1/14.7 cm/sec. Dist ICA 65.5/21.1 cm/sec. Dist ICA 67.6/19.5 cm/sec. Rt. ICA/CCA = 1.1. Lt. ICA/CCA = 0.9. Prox ECA 91.9/9.7 cm/sec. Prox ECA 66.7/4.3 cm/sec. Rt. Vert. 61.0/10.0 cm/sec. Lt. Vert. 39.3/8.1 cm/sec. Right Extracranial There is homogeneous, smooth atherosclerotic plaque noted in the right common carotid artery. There is heterogeneous, irregular atherosclerotic plaque noted in the right internal carotid artery. There is intimal thickening but no significant atherosclerotic plaque noted in the right external carotid artery. Antegrade flow is noted in the right vertebral artery. Left Extracranial There is homogeneous, smooth atherosclerotic plaque noted in the left common carotid artery. There is heterogeneous, irregular atherosclerotic plaque noted in the left internal carotid artery. There is heterogeneous, irregular atherosclerotic plaque noted in the left external carotid artery. Antegrade flow is noted in the left vertebral artery. Procedure Carotid Duplex [id number]. This is a Carotid Duplex examination using B-mode, color flow and specral Doppler. The exam was diagnostic. Exam performed in department. VL/Carotid Duplex Ultrasound Interpretation Summary Mild (<50%) stenosis right extracranial internal carotid. Mild (<50%) stenosis left extracranial internal carotid. Patent and antegrade vertebrals bilaterally. Ordering Physician: Truman Hassan Referring Physician: Cira Valdez Performed By: Nicko Liao RVT
== END | disposition home or self-care (01) ==
PROVIDERS: PCP Internal Medicine; Referring Provider Internal Medicine; Visit Provider Internal Medicine
DX: I65.23 Occlusion and stenosis of bilateral carotid arteries (principal); I21.4 Non-ST elevation (NSTEMI) myocardial infarction; I42.9 Cardiomyopathy, unspecified
CPT/HCPCS: 93306; 93880

== ENCOUNTER 2024-06-30 08:49 | Outpatient (RCR) | payer SELFPAY | END 2024-07-23 23:59 | LOC: NS 08:49 | PROVIDERS: PCP Internal Medicine | DX: Z71.3 Dietary counseling and surveillance (principal) ==

== ENCOUNTER 2024-10-11 10:54 | Observation (INO) | payer MEDICARE, SELFPAY ==
[2024-10-11] VITALS (8 sets, daily range): BP systolic 123–193; BP diastolic 70–86; PULSE 67–106; RESP 16–23; TEMP 36.5–36.7; O2SAT 100; BMI 18.4
--- NOTE | 2024-10-11 11:40 | CT_ITS ---
PROCEDURE: SPINE CERVICAL WITHOUT CONTRAS 10/11/2024 REASON FOR EXAM: TRAUMA TECHNIQUE: SPINE CERVICAL WITHOUT CONTRAS Coronal and Sagittal reconstruction series were provided. One or more dose reduction techniques were used (e.g., Automated exposure control, adjustment of the mA and/or kV according to patient size, use of iterative reconstruction technique. RADIATION DOSE SUMMARY: DLP: 997 mGycm COMPARISON: None FINDINGS: There is loss of the lordosis. There is grade 1 retrolisthesis at C4-5, 0.2 cm. There is loss of disc height from C4-7. Visualized skull base and craniocervical junction demonstrate no evidence of fracture or dislocation. There is no evidence of cervical spine fracture. No soft tissue abnormality is seen. Visualized portions of the lung apices demonstrate no evidence of pneumothorax. CT/Spine Cervical without Contras IMPRESSION: There is loss of the lordosis which can be secondary to position or spasm. There is grade 1 retrolisthesis at C4-5, 0.2 cm. There is loss of disc height from C4-7. There is no visible acute traumatic in jury. Reading Location: [facility]
--- NOTE | 2024-10-11 11:40 | CT_ITS ---
EXAM: NONCONTRAST CT SCAN OF THE HEAD CLINICAL HISTORY: Trauma COMPARISON: None TECHNIQUE: Serial axial series through the head were obtained without contrast. 2-D coronal and sagittal reformats were then obtained. FINDINGS: Brain: There is no acute large territorial infarct, intracranial hemorrhage, midline shift or mass effect. There are atherosclerotic vascular calcifications involving the bilateral carotid siphons. The sella and pineal gland regions appear unremarkable. There is no evidence of cerebellar tonsillar herniation. Ventricles: There is no acute hydrocephalus. Basilar cisterns are patent. Paranasal sinuses: Well-aerated Mastoid air cells: Well-aerated. Calvarium: The bony calvarium is intact. Orbits: The bilateral globes are symmetric, without retrobulbar compressive mass lesion or hemorrhage. CT/Brain/Head without Contrast IMPRESSION: No acute intracranial pathology. Reading [facility]
--- NOTE | 2024-10-11 11:40 | RAD_ITS ---
PROCEDURE: CHEST 1 VIEW (PORTABLE) 10/11/2024 REASON FOR EXAM: CHEST PAIN TECHNIQUE: Frontal view of the chest. COMPARISON: October 27, 2020 FINDINGS: Hardware: EKG leads are present Heart: Mildly enlarged. Lungs: Clear. Bones: Curvature thoracolumbar spine to the right. Mild degenerative changes. RAD/Chest 1 View (Portable) IMPRESSION: No acute cardiopulmonary process. Thoracolumbar curvature of the spine to the right. Reading Location: [id number]
--- NOTE | 2024-10-11 11:40 | EKG12_ITS ---
Test Reason : PALP Blood Pressure : */* mmHG Vent. Rate : 116 BPM Atrial Rate : 116 BPM P-R Int : 152 ms QRS Dur : 82 ms QT Int : 332 ms P-R-T Axes : 74 42 70 degrees QTcB Int : 461 ms Critical Test Result: STEMI Sinus tachycardia with Premature supraventricular complexes Abnormal ECG can not r exclude acute ischemia Confirmed by JACKY WU, DARLENE ([id number]), online editor ANTHONY MEDINA ([id number]) on 10/12/2024 9:37:54 AM Referred By: Nova Hdz Confirmed By: DARLENE RICO MD
--- NOTE | 2024-10-11 11:46 | ED.RN ---
Patient informed she will be going to stucco lab[facility] with Dr. Moe at bedside. Patient states I refuse to go to the stucco laborer. I have a heart condition that makes me have EKG changes and elevated Troponin levels. Patient states they have tried to take me 3 times and have never found any blockages. I do not want to go to the stucco laborer.
[2024-10-11 11:48] LABS: Hematocrit 42.9 % (37-47); Hemoglobin 14.7 g/dL (12.0-15.0); Immature Granulocytes Count 0.020 X10^3/uL (0.0-0.0); Mean Corp Hgb Conc 34.3 g/dL (32-36); Mean Corpuscular Volume 86.0 fL (81-99); Mean Platelet Vol. 10.5 fl (6.2-12.0); NRBC Flagged by Analyzer 0 % (0-5); Platelet Count 287 K/mm3 (150-450); RBC Distribution Width CV 12.9 % (11.6-14.6); RBC Distribution Width SD 39.9 fl (35.1-43.9); Red Blood Count 4.99 M/mm3 (4.2-5.4); White Blood Count 7.9 K/mm3 (4.4-11.0)
--- NOTE | 2024-10-11 11:53 | ED.VIS.FALL ---
HPI HPI - Fall History of Present Illness Chief Complaint: Fall Narrative Narrative: 84-year-old female past medical history of Takotsubo cardiomyopathy presents status post fall at the flower shop prior to arrival. She states that she fell down a few stairs and hit the back of her head. There was no loss of consciousness she denies any neck pain or chest pain. She states she felt weak, and initially may have had numbness of both legs. Of note, she states that she has had Takotsubo 3 times prior to this. She has had previous heart catheterizations and they have never found any blockage. She states that the left ventricle usually swells and can cause her enzymes to elevate, but with catheterization she has never had arterial occlusion. She complains mainly of a lump on the back of her head, but denies any neck pain, or other injury. She does not take blood thinners. [facility] Medical History Hypothyroidism Elevated troponin Takotsubo cardiomyopathy History of left heart catheterization (08/10/19) Abrasion of knee, bilateral History of uterine cancer Cystadenoma History of supraventricular tachycardia History of coronary vasospasm History of non-ST elevation myocardial infarction (NSTEMI) History of uterine cancer Vitamin D deficiency Essential hypertension Personal history of colonic polyps María's disease Cataract Elevated LFTs Anxiety and depression Psoriasis IBS (irritable bowel syndrome) Home Medications ?Medication ?Instructions ?Recorded ?Last Taken ?Type turmeric 100 mg-sae 150 1 cap PO 11/01/20 Unknown History mg-olive 50 mg-oreg 150 mg-capryl capsule ascorbic acid (vitamin C) 1,000 mg 1 g PO DAILY 12/03/20 Unknown History tablet cholecalciferol (vitamin D3) 50 50 mcg PO DAILY 12/03/20 Unknown History mcg (2,000 unit) capsule mecobalamin (vitamin B12) 1,000 1,000 mcg PO DAILY 12/03/20 Unknown History mcg chewable tablet lactobacillus combination no.9 4 4,000 mmu cells PO DAILY 04/12/21 Unknown History billion cell capsule (Adult 50 Plus Probiotic) selenium 200 mcg tablet 200 mcg PO DAILY 04/12/21 Unknown History metoprolol tartrate 25 mg tablet 12.5 mg (1/2 x 25 mg) PO QHS #45 05/09/21 Unknown Rx tabs ascorbic acid 100 mg-elderberry 1 tab PO DAILY 11/06/21 Unknown History fruit 50 mg chewable tablet lorazepam 0.5 mg tablet 0.25 mg PO DAILY PRN anxiety 11/06/21 Unknown History vitamin B complex (Balanced B-50 1 tab PO DAILY 10/11/24 Unknown History tablet) Allergy/AdvReac Type Severity Reaction Status Date / Time cortisone Allergy Severe Throat Verified 10/11/24 10:58 swelling nitrofurantoin (From Allergy Severe Irregular Verified 10/11/24 10:58 Macrobid) HB, vision changes, diaphoresis erythromycin base Allergy Intermediate Unknown Verified 10/11/24 10:58 meperidine (From Demerol) Allergy Intermediate Unknown Verified 10/11/24 10:58 cyanocobalamin (vitamin B12) Allergy Anaphylaxis Verified 10/11/24 10:58 Iodinated Contrast Media Allergy Rash Verified 10/11/24 10:58 (Iodinated Contrast Media - Oral and) Penicillins Allergy Rash Verified 10/11/24 10:58 Sulfa (Sulfonamide Allergy Rash Verified 10/11/24 10:58 Antibiotics) Family History Father , Age 90 Cancer prostate CAD (coronary artery disease) Pacemaker COPD (chronic obstructive pulmonary disease) Brother CAD (coronary artery disease) CABG x 5 Hypertension Heart disease Mother CAD (coronary artery disease) CABG Heart disease CVA (cerebral vascular accident) Cancer rectal Surgical History History of bilateral cataract extraction History of tonsillectomy History of benign breast tumor History of colonoscopy History of bilateral oophorectomy History of hysterectomy History of section History of appendectomy Social History Smoking Status: Never smoker alcohol intake: never substance use type: does not use caffeine: No what type of physical activity do you participate in: walking and weight training frequency: daily seatbelt use: always do you feel safe at home: Yes additional social history: - retired ROS ROS ED ROS Narrative Review of systems positive for occipital hematoma status post fall. Denies neck pain. No chest pain. No prodromal symptoms prior to fall. EXAM Physical Exam Narrative Exam Narrative: GCS 15. ABCs are intact. Inspection of the occiput does reveal mild tenderness with noted hematoma but no crepitance. Neck soft and supple with full range of motion, no vertebral point tenderness or bony step-off. Cardiovascular examination regular rate and rhythm. Lungs are clear to auscultation bilaterally. Abdomen is soft nontender with normoactive bowel sounds. Neurological examination nonfocal, nonlateralizing, awake, alert, able to give distinct history of Takotsubo. Const Vital Signs: 10/11/24 10:55 10/11/24 11:49 10/11/24 11:52 Temperature 97.9 F Temperature Source Oral Pulse Rate 67 Respiratory Rate 16 Respiratory Effort Normal Respiratory Depth Normal Respiratory Pattern Normal Blood Pressure 193/85 H Blood Pressure Mean 121 Pulse Ox 100 Oxygen Delivery Method Room Air Room Air 10/11/24 13:00 10/11/24 14:12 Temperature 98.1 F Temperature Source Pulse Rate 106 H 94 Respiratory Rate 23 H 18 Respiratory Effort Respiratory Depth Respiratory Pattern Blood Pressure 167/86 H 155/70 H Blood Pressure Mean 113 98 Pulse Ox 100 100 Oxygen Delivery Method MDM MDM MDM Narrative Medical decision making narrative: Initially, EKG had been obtained by RN. On my independent interpretation, she does have sinus tachycardia [address] elevation diffusely, but mainly anterolaterally. STEMI activation had been initiated. However, the patient is very insistent that she has had Takotsubo and this is what happens after she falls. She is not currently having chest pain. I did discuss the patient with Dr. Hdz with cardiology who is currently at the bedside with the patient. She is refusing cardiac catheterization. I will obtain CT of the brain and C-spine to help rule out acute intracranial hemorrhage versus cervical spine fracture. Cardiology did also suggest obtaining enzymes, and further workup as an inpatient. I reviewed the radiology report of the CT of the brain and the C-spine. There is no evidence of an acute intracranial hemorrhage or skull fracture. She has degenerative changes of the cervical spine on the CT report but no evidence of an acute fracture. Chest x-ray interpreted by myself independently in 1 view shows no acute process, no pneumonia or pneumothorax. I reviewed the radiology report which confirms my independent interpretation and comments on curvature of the thoracolumbar spine to the right. I reviewed her laboratory work and she has normal white count of 7.9, hemoglobin normal at 14.7 with hematocrit 42.9, platelet count normal at 287. BMP shows sodium low at 132, but she has chronic hyponatremia with compared to prior laboratory work. Chloride 93. BUN of 18 and creatinine normal at 0.81. Glucose 112. She has slightly elevated anion gap of 17 which may be from her hyponatremia. Initial high-sensitivity troponin is 10 with repeat being elevated at 687. Patient states that Ativan usually helps with her history of Takotsubo. She was administered Ativan 0.5 mg orally. Given the rise in her cardiac enzymes, patient will be discussed with the hospitalist for admission to the PCU. She is in stable condition. History & Record Review Discussion w/independent historian: Patient and Family (Son-in-law) Lab Data Attestation: I reviewed the patient's lab results. Labs: Laboratory Results - last 24 hr 10/11/24 10/11/24 11:02 13:10 WBC 7.9 RBC 4.99 Hgb 14.7 Hct 42.9 MCV 86.0 MCH 29.5 MCHC 34.3 RDW Std Deviation 39.9 RDW Coeff of Lena 12.9 Plt Count 287 MPV 10.5 Immature Gran % (Auto) 0.300 Neut % (Auto) 53.8 Lymph % (Auto) 35.7 Clayton % (Auto) 9.1 Eos % (Auto) 0.5 Baso % (Auto) 0.6 Absolute Neuts (auto) 4.3 Absolute Lymphs (auto) 2.82 Nucleated RBC % 0 Sodium 132 L Potassium 4.6 Chloride 93 L Carbon Dioxide 21.5 Anion Gap 17 H BUN 18 Creatinine 0.81 Estim Creat Clear Calc 37.97 L Est GFR (MDRD) Non-Af 72 BUN/Creatinine Ratio 22.8 H Glucose 112 H Calcium 9.8 Troponin T High Sens 10 Troponin T Hi Sens 2 Hr 687 H* Radiography Diagnostic Testing: Clinical Impression(s) from Imaging Studies Brain CT 10/11/24 11:40 IMPRESSION: No acute intracranial pathology. Reading Location: [facility] Cervical Spine CT 10/11/24 11:40 IMPRESSION: There is loss of the lordosis which can be secondary to position or spasm. There is grade 1 retrolisthesis at C4-5, 0.2 cm. There is loss of disc height from C4-7. There is no visible acute traumatic injury. Reading Location: [facility] Chest X-Ray 10/11/24 11:40 IMPRESSION: No acute cardiopulmonary process. Thoracolumbar curvature of the spine to the right. Reading Location: [id number] Management Discussion w/another healthcare provider: Hospitalist (Dr. Baird) Discharge Plan Dx/Rx/DC Orders Clinical Impression: Takotsubo cardiomyopathy, Elevated troponin, Fall down stairs, Closed head injury Disposition Disposition: Acute Care Hospital [facility]
--- NOTE | 2024-10-11 12:06 | CON.PCM.CA_ITS ---
Assessment & Plan Assessment/Plan (1) Takotsubo cardiomyopathy: (2) History of supraventricular tachycardia: (3) Essential hypertension: (4) HLD (hyperlipidemia): QUALIFIERS: Hyperlipidemia type: moderate mixed hyperlipidemia not requiring statin therapy Qualified Code(s): E78.2 - Mixed hyperlipidemia PLAN: Plan -continue to trend troponin to peak, however, after extended discussion with patient, if she does not have any cardiac causes for remaining in hospital, it is reasonable to discharge with outpatient followup -TTE to be done (inpatient or outpatient, pending clinical course) -if BP remains elevated, would start losartan 25mg daily -telemetry monitoring -recommend initiation of statin given DLD and ASCVD risk PT Evaluation Evaluation for neurologic deficit and/or intracranial bleed HPI Consult Data Date of Consult: 10/11/24 HPI Narrative HPI Narrative: MELISSA JORDAN, is a 84 F past cardiovascular history which is included underlying Takotsubo syndrome (3 occurrences), SVT, and hypertension who presented to ED after a mechanical fall in which she hit her head. ECG with diffuse ST elevations, most prominent in anterior leads, and code STEMI called. Patient denies shortness of breath, chest pain, or other symptoms. States she knows this is her Takutsubo acting up, and does not wish to undergo cardiac catheterization. Discussed extensively with family and patient regarding her history, risks and benefits of proceeding with cath, as well as red flag symptoms. Patient states she stepped and her foot went through a rotting step on a wooden staircase, and that's what caused her to hit her head. No LOC, palpitations, dizziness, or other prodrome. [facility] Medical History Hypothyroidism Elevated troponin Takotsubo cardiomyopathy History of left heart catheterization (08/10/19) Abrasion of knee, bilateral History of uterine cancer Cystadenoma History of supraventricular tachycardia History of coronary vasospasm History of non-ST elevation myocardial infarction (NSTEMI) History of uterine cancer Vitamin D deficiency Essential hypertension Personal history of colonic polyps María's disease Cataract Elevated LFTs Anxiety and depression Psoriasis IBS (irritable bowel syndrome) Home Medications ?Medication ?Instructions ?Recorded ?Last Taken ?Type turmeric 100 mg-sae 150 cap PO 11/01/20 Unknown His tory mg-olive 50 mg-oreg 150 mg-capryl capsule ascorbic acid (vitamin C) 1,000 mg 1 g PO DAILY Unknown History tablet cholecalciferol (vitamin D3) 50 50 mcg PO DAILY Unknown History mcg (2,000 unit) capsule mecobalamin (vitamin B12) 1,000 1,000 mcg PO DAILY 01/13 Unknown History mcg chewable tablet lactobacillus combination no.9 4 4,000 mmu cells PO DA NATALIIA 04/12/21 Unknown History billion cell capsule (Adult 50 Plus Probiotic) selenium 200 mcg tablet 200 mcg PO DAILY 04/12/21 Un known History metoprolol tartrate 25 mg tablet 12.5 mg (1/2 x 25 mg) PO QHS #45 05/09/21 Unknown Rx tabs ascorbic acid 100 mg-elderberry 1 tab PO DAILY 2 Unknown History fruit 50 mg chewable tablet lorazepam 0.5 mg tablet 0.25 mg PO DAILY PRN anxiety 11/06/21 Unknown History amlodipine 2.5 mg tablet 2.5 mg PO DAILY PRN Ordered by 07/03/22 Unknown History Courtney for travel if BP goes up amoxicillin 250 mg capsule 500 mg (2 x 250 mg) PO BID #28 caps 01/05/23 Unknown Rx Allergy/AdvReac Type Severity Reaction Status Date / Time cortisone Allergy Severe Throat Verified 10/11/24 10:58 swelling nitrofurantoin (From Allergy Severe Irregular Verified 10/11/24 10:58 Macrobid) HB, vision changes, diaphoresis erythromycin base Allergy Intermediate Unknown Verified 10/11/24 10:58 meperidine (From Demerol) Allergy Intermediate Unknown Verified 10/11/24 10:58 cyanocobalamin (vitamin B12) Allergy Anaphylaxis Verified 10/11/24 10:58 Iodinated Contrast Media Allergy Rash Verified 10/11/24 10:58 (Iodinated Contrast Media - Oral and) Penicillins Allergy Rash Verified 10/11/24 10:58 Sulfa (Sulfonamide Allergy Rash Verified 10/11/24 10:58 Antibiotics) Family History Father , Age 90 Cancer prostate CAD (coronary artery disease) Pacemaker COPD (chronic obstructive pulmonary disease) Brother CAD (coronary artery disease) CABG x 5 Hypertension Heart disease Mother CAD (coronary artery disease) CABG Heart disease CVA (cerebral vascular accident) Cancer rectal Surgical History History of bilateral cataract extraction History of tonsillectomy History of benign breast tumor History of colonoscopy History of bilateral oophorectomy History of hysterectomy History of section History of appendectomy Social History Smoking Status: Never smoker alcohol intake: never substance use type: does not use caffeine: No what type of physical activity do you participate in: walking and weight training frequency: daily seatbelt use: always do you feel safe at home: Yes additional social history: - retired Physical Exam Const alert, oriented x3, no apparent distress and healthy appearing HEENT HEENT Narrative: palpable hematoma at back of skull. Eyes PERRL Chest inspection of chest normal Resp normal respiratory effort and clear to auscultation bilaterally Cardio regular rate and regular rhythm GI normal to inspection, nondistended, normoactive bowel sounds Extremity normal to inspection, full ROM, normal capillary refill, no clubbing, cyanosis or edema and no pedal edema Skin no rashes or lesions noted Psych mental status grossly normal, thought process normal, cooperative and affect normal Objective Data Vital Signs: Vital Signs Temp Pulse Resp BP Pulse Ox O2 Del Method 97.9 F 67 16 193/85 H 100 Room Air 10/11/24 10:55 10/11/24 10:55 10/11/24 10:55 10/11/24 10:55 10/11/24 10:55 10/11/24 11:49 Oxygen Delivery Method Room Air Weight: 100 lb 12.02 oz Body Mass Index (BMI) 18.4 Intake & Output: Intake and Output for Last 24 Hours 10/09/24 10/10/24 10/11/24 23:59 23:59 23:59 Intake Total 0 / 0 Balance 0 / 0 Lab / Micro Data 10/11/24 11:02 10/11/24 11:02 Labs: Laboratory Results - last 24 hr 10/11/24 11:02: WBC 7.9, RBC 4.99, Hgb 14.7, Hct 42.9, MCV 86.0, MCH 29.5, MCHC 34.3, RDW Std Deviation 39.9, RDW Coeff of Lena 12.9, Plt Count 287, MPV 10.5, Immature Gran % (Auto) 0.300, Neut % (Auto) 53.8, Lymph % (Auto) 35.7, [place] % (Auto) 9.1, Eos % (Auto) 0.5, Baso % (Auto) 0.6, Absolute Neuts (auto) 4.3, Absolute Lymphs (auto) 2.82, Nucleated RBC % 0 Cardiology Labs/Tests 10/11/24 11:02: WBC 7.9, RBC 4.99, Hgb 14.7, Hct 42.9, MCV 86.0, MCH 29.5, MCHC 34.3, Plt Count 287, MPV 10.5, Immature Gran % (Auto) 0.300, Neut % (Auto) 53.8, Lymph % (Auto) 35.7, [place] % (Auto) 9.1, Eos % (Auto) 0.5, Baso % (Auto) 0.6, Absolute Neuts (auto) 4.3, Nucleated RBC % 0 Rhythm: EKG: ECHO: Stress Test: Cardiac Cath: PCI: CT Surgery: Holter monitor: EPS: PPM: CXR: Chest CT Scan: ROSALINDA Risk Score for UA/STEMI Assesmment (YES = 1) Risk Stratification Applicable: No Age > or = 65: Yes > or = 3 CAD risk factors (HTN, Hypercholesterolemia, Diabetes, family hx, current smoker): Yes Known CAD (Stenosis > or = 50%): No ASA used in past 7 days: Yes Severe angina (> or = 2 episodes in 24 hrs): No EKG ST change > or = 0.5mm: Yes Positive cardiac markers: No Score ROSALINDA Risk Score of mortality/ recurrent ischemic event over the next 14 days: 4 = 19.9% - Intermediate
[2024-10-11 12:21] LABS: Anion Gap 17 (5-15); BUN 18 mg/dL (4-19); BUN/Creat Ratio 22.8 RATIO (10-20); Calcium,Total 9.8 mg/dL (7.6-11.0); Carbon Dioxide 21.5 mmol/L (21.0-32.0); Chloride 93 mmol/L (98-108); Estimated Creatinine Clearance 37.97 ml/min (50-250); Glucose 112 mg/dL (70-99); Potassium 4.6 mmol/L (3.3-5.1); Troponin T High Sensitivity 10 ng/L (<=14)
--- NOTE | 2024-10-11 13:40 | EKG12_ITS ---
Test Reason : REPEAT Blood Pressure : */* mmHG Vent. Rate : 109 BPM Atrial Rate : 109 BPM P-R Int : 142 ms QRS Dur : 80 ms QT Int : 364 ms P-R-T Axes : 70 26 61 degrees QTcB Int : 490 ms Sinus tachycardia Possible Left atrial enlargement QTcB >= 480 msec Abnormal ECG Confirmed by JACKY WU, DARLENE ([id number]), design editor ANTHONY MEDINA ([id number]) on 10/12/2024 9:37:06 AM Referred By: Nova Hdz Confirmed By: DARLENE RICO MD
[2024-10-11 13:47] LABS: Troponin T High Sens 2 HR 687 ng/L (<=14)
--- NOTE | 2024-10-11 14:13 | PCM.HP.STD ---
HPI - General General Date of Admission: 10/11/24 Date of Service: 10/11/24 Chief Complaint: Fall HPI Narrative MELISSA JORDAN, is a 84 F who presented to [facility] ED on 10/11/2024 after a fall. Patient lives at home alone, has good functional status of baseline. She was at a flower shop in town this morning when she stepped through a rotting wooden step, which caused her to fall and hit the back of her head. Importantly, medical history is notable for three episodes of Takutsubo cardiomyopathy. Per patient, episodes were in 2008, 2011 and 2019. In the ED EKG showed significant ST elevations in V3-6 so STEMI alert was called. Cardiology evaluated patient at the bedside shortly after. Patient noted mild chest pressure that started in the ED, but stated it was consistent with prior chest pressure that she had with Takotsubo episodes. She was hypertensive and had mild sinus tachycardia, was otherwise stable on room air. Chest x-ray was unremarkable. Troponin trend 10 > 687. Patient discussed with cardiology and noted her prior heart caths have shown clean coronaries, so she is refusing repeat catheterization at this time. However, she is amenable to admission for TTE and trending troponins. Hospitalist was then contacted for admission. I saw the patient at bedside in the ED, son-in-law was present. Patient was sitting back comfortably in bed, conversing normally, in no acute distress. She was alert and oriented x 3. She noted very mild chest pressure currently, improved from earlier this afternoon. Her only other concerns are mild pain in the back of her head where she fell, as well as mild low back pain. Of note, CT brain and C-spine were unremarkable. No point tenderness to palpation in L-spine and good range of motion on exam. She denied any other acute concerns currently. Will be admitted for further management. [facility] Medical History (Updated 10/11/24 @ 15:[address] Timothy Baird, ) Hypothyroidism Elevated troponin Takotsubo cardiomyopathy History of left heart catheterization (08/10/19) Abrasion of knee, bilateral History of uterine cancer Cystadenoma History of supraventricular tachycardia History of coronary vasospasm History of non-ST elevation myocardial infarction (NSTEMI) History of uterine cancer Vitamin D deficiency Essential hypertension Personal history of colonic polyps María's disease Cataract Elevated LFTs Anxiety and depression Psoriasis IBS (irritable bowel syndrome) Home Medications ?Medication ?Instructions ?Recorded ?Last Taken ?Type turmeric 100 mg-sae 150 1 cap PO 11/01/20 Unknown History mg-olive 50 mg-oreg 150 mg-capryl capsule ascorbic acid (vitamin C) 1,000 mg 1 g PO DAILY 12/03/20 Unknown History tablet cholecalciferol (vitamin D3) 50 50 mcg PO DAILY 12/03/20 Unknown History mcg (2,000 unit) capsule mecobalamin (vitamin B12) 1,000 1,000 mcg PO DAILY 12/03/20 Unknown History mcg chewable tablet lactobacillus combination no.9 4 4,000 mmu cells PO DAILY 04/12/21 Unknown History billion cell capsule (Adult 50 Plus Probiotic) selenium 200 mcg tablet 200 mcg PO DAILY 04/12/21 Unknown History metoprolol tartrate 25 mg tablet 12.5 mg (1/2 x 25 mg) PO QHS #45 05/09/21 Unknown Rx tabs ascorbic acid 100 mg-elderberry 1 tab PO DAILY 11/06/21 Unknown History fruit 50 mg chewable tablet lorazepam 0.5 mg tablet 0.25 mg PO DAILY PRN anxiety 11/06/21 Unknown History vitamin B complex (Balanced B-50 1 tab PO DAILY 10/11/24 Unknown History tablet) Allergy/AdvReac Type Severity Reaction Status Date / Time cortisone Allergy Severe Throat Verified 10/11/24 10:58 swelling nitrofurantoin (From Allergy Severe Irregular Verified 10/11/24 10:58 Macrobid) HB, vision changes, diaphoresis erythromycin base Allergy Intermediate Unknown Verified 10/11/24 10:58 meperidine (From Demerol) Allergy Intermediate Unknown Verified 10/11/24 10:58 cyanocobalamin (vitamin B12) Allergy Anaphylaxis Verified 10/11/24 10:58 Iodinated Contrast Media Allergy Rash Verified 10/11/24 10:58 (Iodinated Contrast Media - Oral and) Penicillins Allergy Rash Verified 10/11/24 10:58 Sulfa (Sulfonamide Allergy Rash Verified 10/11/24 10:58 Antibiotics) Family History Father , Age 90 Cancer prostate CAD (coronary artery disease) Pacemaker COPD (chronic obstructive pulmonary disease) Brother CAD (coronary artery disease) CABG x 5 Hypertension Heart disease Mother CAD (coronary artery disease) CABG Heart disease CVA (cerebral vascular accident) Cancer rectal Surgical History History of bilateral cataract extraction History of tonsillectomy History of benign breast tumor History of colonoscopy History of bilateral oophorectomy History of hysterectomy History of section History of appendectomy Social History Smoking Status: Never smoker alcohol intake: never substance use type: does not use caffeine: No what type of physical activity do you participate in: walking and weight training frequency: daily seatbelt use: always do you feel safe at home: Yes additional social history: - retired ROS Constitutional Constitutional: Denies chills, fatigue, fever(s) or weakness Eyes Eyes: Denies change in vision Cardiovascular Cardiovascular: Reports chest pain; Denies dyspnea on exertion, edema, lightheadedness or palpitations Respiratory/Chest Respiratory/Chest: Denies cough, shortness of breath at rest, shortness of breath with exertion or wheezing Gastrointestinal Gastrointestinal: Denies abdominal pain Musculoskeletal Musculoskeletal: Reports back pain; Denies arthralgias, joint pain, joint swelling, myalgias or neck pain Neurologic Neurologic: Denies dizziness, focal weakness, headache(s), numbness or tingling Vital Signs Vital Signs Vital Signs: 10/11/24 10:55 10/11/24 11:49 10/11/24 11:52 Temperature 97.9 F Temperature Source Oral Pulse Rate 67 Respiratory Rate 16 Respiratory Effort Normal Respiratory Depth Normal Respiratory Pattern Normal Blood Pressure 193/85 H Blood Pressure Mean 121 Pulse Ox 100 Oxygen Delivery Method Room Air Room Air 10/11/24 13:00 10/11/24 14:12 Temperature 98.1 F Temperature Source Pulse Rate 106 H 94 Respiratory Rate 23 H 18 Respiratory Effort Respiratory Depth Respiratory Pattern Blood Pressure 167/86 H 155/70 H Blood Pressure Mean 113 98 Pulse Ox 100 100 Oxygen Delivery Method Weight Weight: 45.7 kg Body Mass Index (BMI) 18.4 Physical Exam Const alert, oriented x3, no apparent distress and average body habitus Constitutional Narrative: Pleasant elderly female, alert and oriented x 3, sitting back comfortably in bed, conversing normally, in no acute distress. General Appearance: cooperative and comfortable HEENT normocephalic, head/scalp atraumatic, hearing grossly normal bilaterally, nasal mucous membranes and turbinates normal and moist oral mucous membranes Eyes PERRL, EOMs intact bilaterally and conjunctivae normal Neck full ROM Chest inspection of chest normal Resp normal respiratory effort, normal air movement, no use of accessory muscles and clear to auscultation bilaterally Cardio no murmurs and peripheral pulses 2+ throughout Cardio Narrative: Tachycardic, regular rhythm. GI normal to inspection, nondistended, normoactive bowel sounds, soft to palpation, non-tender and non-distended Back/Spine normal ROM Extremity normal to inspection, full ROM and no pedal edema Skin no rashes or lesions noted Psych mental status grossly normal Results Lab / Micro Data 10/11/24 11:02 10/11/24 11:02 Labs: Laboratory Results - last 24 hr 10/11/24 11:02: WBC 7.9, RBC 4.99, Hgb 14.7, Hct 42.9, MCV 86.0, MCH 29.5, MCHC 34.3, RDW Std Deviation 39.9, RDW Coeff of Lena 12.9, Plt Count 287, MPV 10.5, Immature Gran % (Auto) 0.300, Neut % (Auto) 53.8, Lymph % (Auto) 35.7, [place] % (Auto) 9.1, Eos % (Auto) 0.5, Baso % (Auto) 0.6, Absolute Neuts (auto) 4.3, Absolute Lymphs (auto) 2.82, Nucleated RBC % 0, Sodium 132 L, Potassium 4.6, Chloride 93 L, Carbon Dioxide 21.5, Anion Gap 17 H, BUN 18, Creatinine 0.81, Estim Creat Clear Calc 37.97 L, Est GFR (MDRD) Non-Af 72, BUN/Creatinine Ratio 22.8 H, Glucose 112 H, Calcium 9.8, Troponin T High Sens 10 10/11/24 13:10: Troponin T Hi Sens 2 Hr 687 H* Imaging Radiology Impression Brain CT 10/11/24 11:40 IMPRESSION: No acute intracranial pathology. [facility] Cervical Spine CT 10/11/24 11:40 IMPRESSION: There is loss of the lordosis which can be secondary to position or spasm. There is grade 1 retrolisthesis at C4-5, 0.2 cm. There is loss of disc height from C4-7. There is no visible acute traumatic injury. Reading Location: [facility] Chest X-Ray 10/11/24 11:40 IMPRESSION: No acute cardiopulmonary process. Thoracolumbar curvature of the spine to the right. Reading Location: [id number] Assessment & Plan Assessment/Plan (1) Fall down stairs: (2) Elevated troponin: PLAN: Plan Patient is an 84-year-old female who presented to [facility] ED on 10/11/2024 after a mechanical fall. 1. Elevated troponins with ST elevations on EKG and concern for recurrent Takotsubo cardiomyopathy; history of hypertension, hyperlipidemia and SVT ? Admit under observation status to PCU. Previously followed with [place] [facility], last office visit in 2021. History of 3 episodes of Takotsubo cardiomyopathy in 2008, 2011 and 2019. Last episode in 2019 occurred here; cardiac cath in 07/2019 showed nonobstructive CAD, estimated EF 35%. Echo in 10/2019 showed recovered EF of 65%, no other concerning findings. Initial EKG in the ED showed significant ST elevations in leads V3 through V6; repeat EKG 2 hours later with improvement in ischemic changes. Troponin trend 10 > 687. Chest x-ray unremarkable, no concern for volume overload. Patient with very mild chest pressure noted. Patient notably is refusing heart cath at this time. Cardiology evaluated in the ED; per their recs, will obtain echo, trend troponin to peak and continue cardiac monitoring. Hypertensive to the 160s systolic in the ED. Will continue home low-dose Lopressor and add IV hydralazine as needed for SBP greater than 170 or now. Can consider initiating losartan but notably patient is hesitant to start any new medications, as she states she has had issues with many medications in the past. Last lipid panel in 2020 was borderline and patient preferred dietary changes; repeat lipid panel ordered. Will hold on cardiology consult as I suspect outpatient follow-up will be sufficient, but can consider consult as needed. 2. Mechanical fall ? Had mechanical fall at [employer] in [facility] when she fell through a rotting wooden stair. Lives at home alone, reports good functional status at baseline. CT brain and cervical spine unremarkable. Small hematoma on posterior scalp and mild low back pain noted by patient. Will have PT and OT evaluate patient in the morning but anticipate she will be fine for discharge home. 3. Anxiety ? Per history. Has been on Ativan 0.25 mg daily as needed for many years. Notes that in the past, taking an extra dose of Ativan has helped to bring her blood pressures down during episodes of Takotsubo's cardiomyopathy. Given dose of p.o. Ativan 0.5 mg in the ED. Okay to continue home Ativan as needed with first dose available later this evening. DVT prophylaxis: Lovenox CODE STATUS: Full code, verified Expected disposition: Home, 1 to 2 days Total clinical time spent by myself addressing the patient's medical issues, reviewing all the data, and collaborating with patient's care team: 75 minutes. Charges/Coding Visit Charges Inpatient E&M: 13201 Init Hosp L3
--- NOTE | 2024-10-11 14:17 | ECHOD_ITS ---
Reason For Study Reason For Study: TAKOTSUBO SYNDROME Procedure This was a 2D Doppler, Color Flow transthoracic echocardiogram. Exam performed portable in patient room. Left Ventricle Normal LV size. Normal left ventricular thickness. The estimated ejection fraction is 40 %. There is hypokinesis of the mid septal, lateral, and inferior frausto, extending to the apex. In Takutsubo fashion. Right Ventricle Normal size and thickness. Normal systolic function. Atria There is moderate biatrial dilatation. Mitral Valve The mitral valve is structurally normal. No prolapse or stenosis seen. Mild (1+) mitral valve insufficiency. Tricuspid Valve Normal tricuspid valve. Mild tricuspid valve insufficiency. Right ventricular systolic pressure estimated to be 22 mmHg. Aortic Valve Normal aortic valve. There is no aortic stenosis. No aortic valve insufficiency. Great Vessels No collapse of the inferior vena cava. MMode/2D Measurements & Calculations LVIDd: 3.4 cm IVSd: 0.86 cm Ao root diam: 3.1 cm LVIDs: 2.4 cm LVPWd: 0.86 cm RVDd: 2.8 cm FS: 29.2 % LAV(MOD-bp): 48.5 ml SV(MOD-sp4): 20.9 ml LVAd ap4: 19.9 cm2 LAV(MOD-bp) Indexed: 34.0 ml/m2 LVLd ap4: 6.9 cm SI(MOD-sp4): 14.7 ml/m2 LAV(MOD-sp2): 43.6 ml EDV(MOD-sp4): 47.4 ml LAV(MOD-sp4): 47.1 ml EDV(sp4-el): 48.8 ml LVAs ap4: 14.4 cm2 LVLs ap4: 6.9 cm ESV(MOD-sp4): 26.4 ml ESV(sp4-el): 25.7 ml EF(MOD-sp4): 44.2 % EF(sp4-el): 47.4 % SV(sp4-el): 23.2 ml LA dimension(2D): 3.0 cm LA A4 area: 16.0 cm2 TAPSE: 2.2 cm RA A4 area: 10.7 cm2 Time Measurements MV dec time: 0.16 sec Doppler Measurements & Calculations MV E max chan: 86.0 cm/sec Lat Peak E' Chan: 8.8 cm/sec Med Peak E' Chan: 9.0 cm/sec MV A max chan: 110.4 cm/sec E/E' lat: 9.8 E/E' med: 9.5 MV E/A: 0.78 MV V2 max: 124.2 cm/sec MV P1/2t max chan: 88.6 cm/sec Ao V2 max: 107.8 cm/sec MV max P.2 mmHg MV P1/2t: 40.3 msec Ao max P.6 mmHg MV V2 mean: 68.6 cm/sec Ao V2 mean: 77.2 cm/sec MV mean P.2 mmHg MV dec slope: 645.1 cm/sec2 Ao mean P.6 mmHg MV V2 VTI: 27.2 cm MVA(P1/2t): 5.5 cm2 Ao V2 VTI: 21.0 cm AV (velocity ratio): 0.70 AI max chan: 376.9 cm/sec LV V1 max: 64.8 cm/sec PA V2 max: 94.3 cm/sec AI max P.8 mmHg LV V1 max P.7 mmHg AI dec slope: 319.2 cm/sec2 LV V1 mean P.0 mmHg AI P1/2t: 345.9 msec LV V1 mean: 49.6 cm/sec LV V1 VTI: 14.6 cm TR max chan: 288.9 cm/sec TR max P.4 mmHg ECHO/Echo Complete Interpretation Summary The estimated ejection fraction is 40 %. There is hypokinesis of the mid septal, lateral, and inferior frausto, extending to the apex. In Takutsubo fashion. A complete two-dimensional transthoracic echocardiogram was performed (2D, M-mo de, Doppler and color flow Doppler). Ordering Physician: Timothy Baird Referring Physician: Cira Valdez Performed By: Brenda Wang RDCS, RVT
--- NOTE | 2024-10-11 14:32 | CHAPLAIN ---
Type of Pastoral Visit ___ Initial Visit ___ Follow-up Visit ___ On-call Visit ___ General Patient Visit ___ Spiritual Assessment ___ Family Conference ___ Bereavement _x__ Rapid Response ___ Code Blue ___ Other (describe below) Pastoral Care Referral From ___ Patient ___ Family ___ Nurse ___ Physician ___ Field Superintendent ___ Eligibility Technician _x__ Other (describe below) Sacrament/Intervention _x__ Active listening ___ Anointing ___ Gnosticism ___ Bereavement ___ Communion _x__ Haydee exploration ___ ___ Life review _x__ Prayer ___ Reconciliation ___ Sacrament of Sick _x__ Supportive presence ___ Wedding ___ Other (describe below) Pastoral Comments this was a stemi alert but after evaluation it was cancelled; pt is welcoming although acts alarmed when this it business analyst arrives thinking that meant she was in a serious situation; calm assurance of spiritual care; offer of presence, prayer, and additional support given; pt says prayer and then begins to pray for herself; after further evaluation and stemi was called off, this it business analyst again entered room and offered support and other interventions as desired; son-in-law is with the patient and available for further concerns of pt; offer of support to family member;
[2024-10-11 16:00] LABS: Pro- Brain NATRIURETIC PEPTIDE 491 pg/mL (<=1800)
[2024-10-11 16:48] LABS: Troponin T High Sens 4 HR 1573 ng/L (<=14)
[2024-10-12 03:00] VITALS: PULSE 69
[2024-10-12 04:00] VITALS: BP 102/60; PULSE 62; RESP 14; TEMP 36.7; O2SAT 98
[2024-10-12 05:37] LABS: Hematocrit 35.6 % (37-47); Hemoglobin 11.9 g/dL (12.0-15.0); Mean Corp Hgb Conc 33.4 g/dL (32-36); Mean Corpuscular Volume 86.0 fL (81-99); Mean Platelet Vol. 10.2 fl (6.2-12.0); Platelet Count 215 K/mm3 (150-450); RBC Distribution Width CV 12.9 % (11.6-14.6); RBC Distribution Width SD 40.3 fl (35.1-43.9); Red Blood Count 4.14 M/mm3 (4.2-5.4); White Blood Count 7.7 K/mm3 (4.4-11.0)
[2024-10-12 06:03] LABS: Anion Gap 10 (5-15); BUN 20 mg/dL (4-19); BUN/Creat Ratio 27.5 RATIO (10-20); Calcium,Total 9.0 mg/dL (7.6-11.0); Carbon Dioxide 23.5 mmol/L (21.0-32.0); Chloride 95 mmol/L (98-108); Cholesterol 183 mg/dL (<=200); Estimated Creatinine Clearance 38.44 ml/min (50-250); Glucose 103 mg/dL (70-99); Low Density Lipoprotein Calc. 90 mg/dL; Potassium 5.0 mmol/L (3.3-5.1); Triglycerides 61 mg/dL; Very Low Density Lipoprotein 12 mg/dL (5-40); cholesterol:hdl ratio screen 2.28
[2024-10-12 07:00] VITALS: PULSE 85
[2024-10-12 09:06] VITALS: BP 102/45; PULSE 79; RESP 17; TEMP 36.5; O2SAT 100
[2024-10-12 14:44] VITALS: PULSE 90
[2024-10-12 14:51] VITALS: BP 119/82; PULSE 87; RESP 17; TEMP 36.5; O2SAT 100
--- NOTE | 2024-10-12 14:53 | DS.PCM_ITS ---
Providers Date of Admission: 10/11/24 Date of Discharge: 10/12/24 Primary Care Physician: Dr. Cira Valdez, DO Reason For Visit: ELEVATED TROPONIN W/ H.O TAKUTSUBO, FALL W/ WEAKNE Diagnosis Discharge Diagnosis (1) Fall down stairs: Status: Acute Code(s): W10.8XXA - Fall (on) (from) other stairs and steps, initial encounter (2) Elevated troponin: Status: Acute Code(s): R77.8 - Other specified abnormalities of plasma proteins Medications at Discharge Home Medications turmeric 100 mg-sae 150 mg-olive 50 mg-oreg 150 mg-capryl capsule 1 cap PO DAILY PRN supplement, bone health 11/01/20 ascorbic acid (vitamin C) 1,000 mg tablet 1 g PO DAILY supplement 12/03/20 cholecalciferol (vitamin D3) 50 mcg (2,000 unit) capsule 50 mcg PO DAILY supplement 12/03/20 mecobalamin (vitamin B12) 1,000 mcg chewable tablet 1,000 mcg PO DAILY supplement 12/03/20 lactobacillus combination no.9 4 billion cell capsule (Adult 50 Plus Probiotic) 4,000 mmu cells PO DAILY 04/12/21 selenium 200 mcg tablet 200 mcg PO DAILY jamie's 04/12/21 metoprolol tartrate 25 mg tablet 12.5 mg (1/2 x 25 mg) PO QHS heart #45 tabs 05/09/21 ascorbic acid 100 mg-elderberry fruit 50 mg chewable tablet 1 tab PO DAILY PRN during cold and flu season, supplement 11/06/21 lorazepam 0.5 mg tablet 0.25 mg PO DAILY PRN anxiety 11/06/21 magnesium 200 mg tablet 200 mg PO QHS 10/11/24 vitamin B complex (Balanced B-50 tablet) 1 tab PO DAILY supplement 10/11/24 Hospital Course Operations None Procedures 2-D Echocardiogram Summary of Care Provided Minutes Spent on Discharge: 45 Hospital Course: Patient is an 84-year-old female with a past medical history as outlined who was admitted through the ED on 10/11/2024 after she sustained a fall. She went to a flower shop on the day of admission and fell through a rotten wood step. She said the back of her head. She had had several episodes of Takotsubo cardiomyopathy back in 2008, 2011 and 2019. She also complained of mild chest pressure which she said was similar to when she had Takotsubo. On admission she was mildly hypertensive and tachycardic. Chest x-ray was unremarkable. Initial troponin was 10 but subsequent troponin subsequently trended upwards to over 600. Cardiology was consulted and patient told cardiology that her previous cardiac catheter showed clean coronaries and so she did not want to have a cardiac cath. She was however amenable for TTE. She was admitted and managed for non-STEMI thought to be due to Takotsubo cardiomyopathy. She did have 2D echo which showed EF of 40% with hypokinesis of the left ventricle and Takotsubo fashion. She remained stable and was discharged home on 10/12/2024 per cardiology recommendations. She is follow-up with her primary care doctor and cardiology within 1 to 2 weeks. Patient seen and examined prior to discharge. She had no active complaints. Chest pain had not recurred. Review of systems otherwise negative. She again reiterated that she did not want any further workup done as she felt this was similar to her Takotsubo's. Labs and vitals reviewed. All medication reviewed and reconciled. Physical Exam Const alert, oriented x3 and no apparent distress General Appearance: cooperative and comfortable Exam Limitations: no limitations HEENT normocephalic, head/scalp atraumatic, hearing grossly normal bilaterally and moist oral mucous membranes Mouth: oral and palatal mucosa normal Eyes EOMs intact bilaterally and conjunctivae normal Neck supple and no JVD Resp normal respiratory effort, no use of accessory muscles and clear to auscultation bilaterally Cardio regular rate, regular rhythm, S1 normal heart sound, S2 normal heart sound and no murmurs GI normal to inspection, nondistended, normoactive bowel sounds, soft to palpation and non-tender Extremity normal to inspection, full ROM and no clubbing, cyanosis or edema Skin no rashes or lesions noted Neuro oriented x3, CN's II-XII intact bilaterally, moves all extremities and no focal motor deficits Sensorium / Orientation: awake and alert Motor Exam: strength 5/5 throughout Psych affect normal Weight / BMI Weight Weight: 100 lb 12.02 oz Body Mass Index (BMI) 18.4 ABG / Lab / Microbiology Data 10/12/24 04:45 10/12/24 04:45 Laboratory: Laboratory Results - last 24 hr 10/11/24 13:10: NT pro BNP II 491, TSH 2.410 10/11/24 15:39: Troponin T Hi Sens 4Hr 1573 H* 10/12/24 04:45: WBC 7.7, RBC 4.14 L, Hgb 11.9 L, Hct 35.6 L, MCV 86.0, MCH 28.7, MCHC 33.4, RDW Std Deviation 40.3, RDW Coeff of Lena 12.9, Plt Count 215, MPV 10.2, Sodium 129 L, Potassium 5.0, Chloride 95 L, Carbon Dioxide 23.5, Anion Gap 10, BUN 20 H, Creatinine 0.73, Estim Creat Clear Calc 38.44 L, Est GFR (MDRD) Non-Af 82, BUN/Creatinine Ratio 27.5 H, Glucose 103 H, Calcium 9.0, Triglycerides 61, Cholesterol 183, LDL Cholesterol, Calc 90, VLDL Cholesterol 12, HDL Cholesterol 80, Cholesterol/HDL Ratio 2.28 Radiography Diagnostic Testing: Radiology Impression Echocardiogram 10/11/24 14:17 Interpretation Summary The estimated ejection fraction is 40 %. There is hypokinesis of the mid septal, lateral, and inferior frausto, extending to the apex. In Takutsubo fashion. A complete two-dimensional transthoracic echocardiogram was performed (2D, M- mode, Doppler and color flow Doppler). Ordering Physician: Timothy Baird Referring Physician: Cira Valdez Performed By: Brenda Wang, DES, RVT D/C Instructions Discharge Activity: Return to Normal Activity Weight Bearing Status: Weight bearing as tolerated Call your doctor if you observe: Fever of 101 or Higher, Shortness of breath, Dizziness, Swelling in the ankles, Chest pain and Increased palpitations (irregular heartbeat) DC O2, CPAP, BIPAP Needs Home O2 Discharge instructions: No DC home with Oxygen: No Meaningful Use Info Meaningful Use Meaningful Use Diagnoses (Choose all that apply): None applicable Discharge Plan Admission Admit Date/Time: 10/11/24 14:13 Primary Reason for Your Visit: nonstemi, Takotsubo's cardiomyopathy Attending Provider: Vee Chavarria Primary Care Provider: Cira Valdez Consulting Providers: Timothy Baird Instructions Patient Instructions: Takotsubo Cardiomyopathy Discharge Orders/Prescriptions Prescriptions: Continued lorazepam 0.5 mg tablet 0.25 mg PO DAILY PRN (Reason: anxiety) zigvozrb-alac-sirot-oreg-capry 100 mg-150 mg- 50 mg-150 mg capsule 1 cap PO DAILY PRN mecobalamin (vitamin B12) 1,000 mcg tablet,chewable 1,000 mcg PO DAILY cholecalciferol (vitamin D3) 50 mcg (2,000 unit) capsule 50 mcg PO DAILY ascorbic acid (vitamin C) 1,000 mg tablet 1 g PO DAILY Adult 50 Plus Probiotic 4 billion cell capsule 4,000 mmu cells PO DAILY Rx Instructions: administer with a meal selenium 200 mcg tablet 200 mcg PO DAILY ascorbic acid-elderberry fruit 100-50 mg tablet,chewable 1 tab PO DAILY PRN (Reason: during cold and flu season, supplement) vitamin B complex [Balanced B-50] Tablet 1 tab PO DAILY magnesium 200 mg tablet 200 mg PO QHS metoprolol tartrate 25 mg tablet 12.5 mg PO QHS Qty: 45 3RF Rx Instructions: Needs to be made by [employer] Referrals / Follow Up: Bo Huitron MD [Med Staff - Active Staff] - Within 1 Week Cira Valdez DO [Primary Care Provider] - Within 1 Week Disposition Disposition (needs filled in before D/C Order can be placed): Home, Self Care Charges/Coding Visit Charges Inpatient E&M: 26921 Disch Hosp >30min
--- NOTE | 2024-10-12 15:07 | PCM.DC ---
Discharge Instructions DC O2, CPAP, BIPAP needs Home O2 Discharge instructions: No Dressing / Incision Discharge Activity: Return to Normal Activity Dressing / Incision Call your doctor if you observe: Fever of 101 or Higher, Shortness of breath, Dizziness, Swelling in the ankles and Chest pain Follow Up Care Test Results: Test results from this visit will be discussed in further detail at your follow-up appointment, if applicable. Discharge Plan Admission Admit Date/Time: 10/11/24 14:13 Primary Reason for Your Visit: nonstemi, Takotsubo's cardiomyopathy Attending Provider: Vee Chavarria Primary Care Provider: Cira Valdez Consulting Providers: Timothy Baird Instructions Patient Instructions: Takotsubo Cardiomyopathy Discharge Orders/Prescriptions Prescriptions: Continued lorazepam 0.5 mg tablet 0.25 mg PO DAILY PRN (Reason: anxiety) ixcljyhj-ggco-clzvo-oreg-capry 100 mg-150 mg- 50 mg-150 mg capsule 1 cap PO DAILY PRN mecobalamin (vitamin B12) 1,000 mcg tablet,chewable 1,000 mcg PO DAILY cholecalciferol (vitamin D3) 50 mcg (2,000 unit) capsule 50 mcg PO DAILY ascorbic acid (vitamin C) 1,000 mg tablet 1 g PO DAILY Adult 50 Plus Probiotic 4 billion cell capsule 4,000 mmu cells PO DAILY Rx Instructions: administer with a meal selenium 200 mcg tablet 200 mcg PO DAILY ascorbic acid-elderberry fruit 100-50 mg tablet,chewable 1 tab PO DAILY PRN (Reason: during cold and flu season, supplement) vitamin B complex [Balanced B-50] Tablet 1 tab PO DAILY magnesium 200 mg tablet 200 mg PO QHS metoprolol tartrate 25 mg tablet 12.5 mg PO QHS Qty: 45 3RF Rx Instructions: Needs to be made by [employer] Referrals / Follow Up: Bo Huitron MD [Med Staff - Active Staff] - Within 1 Week Cira Valdez DO [Primary Care Provider] - Within 1 Week Disposition Disposition (needs filled in before D/C Order can be placed): Home, Self Care
--- NOTE | 2024-10-12 15:34 | CASEMGMT ---
LUIS Met with patient to complete LUIS form. LUIS form and its content were verbally explained and patient's questions were answered to the best of my ability.? Patient voiced understanding and signed LUIS form.? Patient provided a copy of signed LUIS form and original placed in patient's chart.? Patient had no further questions. Kaykay Lares, Discharge Planning Asst
--- NOTE | 2024-10-12 15:39 | CHAPLAIN ---
Type of Pastoral Visit ___ Initial Visit _x__ Follow-up Visit ___ On-call Visit ___ General Patient Visit ___ Spiritual Assessment ___ Family Conference ___ Bereavement ___ Rapid Response ___ Code Blue ___ Other (describe below) Pastoral Care Referral From _x__ Patient ___ Family ___ Nurse ___ Physician ___ Shuttle Filler ___ Numerologist ___ Other (describe below) Sacrament/Intervention _x__ Active listening ___ Anointing ___ Yazidi ___ Bereavement ___ Communion _x__ Haydee exploration ___ _x__ Life review _x__ Prayer ___ Reconciliation ___ Sacrament of Sick _x__ Supportive presence ___ Wedding ___ Other (describe below) Pastoral Comments patient was seen in ED yesterday; pt gives updates and is pleased that issue was not more severe; pt expects to be discharged yet today; pt uses haydee in God to be her source of encouragement and hope; pt also has good family care although a daughter and grandson are away now for college entrance; pt expresses haydee and asks for prayer and 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
--- NOTE | 2024-10-12 15:40 | CASEMGMT ---
Social Work- SW met with pt to complete verification of directives. Pt reports dtr Elizabeth is HCPOA and pt has brought in document prior. SW requested document again for scan into chart, as it is not showing in system. Pt requesting to speak with hospitalist and have updated on d/c timing. SW updated hospitalist and bedside nurse. Pt reports no other needs at this time. DOV Reynoso
--- NOTE | 2024-10-12 16:04 | CASEMGMT ---
Patient has order for discharge. RN CM in to discuss needs at discharge. Patient denies needs or help at discharge. Patient had no further questions or concerns.
== END 2024-10-12 16:15 | disposition home or self-care (01) ==
LOC: ED 14:15 → PCU 14:21
PROVIDERS: Admitting Provider Hospitalist; Emergency Provider Emergency Medicine; PCP Internal Medicine; Referring Provider Internal Medicine; Visit Provider Student in an Organized Health Care Education/Training Program
DX: I51.81 Takotsubo syndrome (principal); S09.90XA Unspecified injury of head, initial encounter; M47.812 Spondylosis without myelopathy or radiculopathy, cervical region; M43.8X5 Other specified deforming dorsopathies, thoracolumbar region; E78.2 Mixed hyperlipidemia; R79.89 Other specified abnormal findings of blood chemistry; Z82.49 Family history of ischemic heart disease and other diseases of the circulatory system; I10 Essential (primary) hypertension; E87.1 Hypo-osmolality and hyponatremia; Z90.710 Acquired absence of both cervix and uterus; E03.9 Hypothyroidism, unspecified; I25.2 Old myocardial infarction; F41.9 Anxiety disorder, unspecified; W10.8XXA Fall (on) (from) other stairs and steps, initial encounter; R77.8 Other specified abnormalities of plasma proteins; R07.89 Other chest pain; Z86.79 Personal history of other diseases of the circulatory system; R94.31 Abnormal electrocardiogram [ECG] [EKG]; R00.0 Tachycardia, unspecified; R20.0 Anesthesia of skin
CPT/HCPCS: 36415; 70450; 71045; 72125; 80048; 80061; 83880; 84443; 84484; 85025; 85027; 93005; 93306; 94668; 97161; 97166; 99221; 99285; A4216; G0378

== ENCOUNTER 2024-12-22 12:05 | Outpatient (RCR) | payer SELFPAY | END 2024-12-23 23:59 | LOC: NS 12:05 | PROVIDERS: PCP Internal Medicine | DX: Z71.3 Dietary counseling and surveillance (principal) ==

== ENCOUNTER → 2025-02-03 | Outpatient (CLI) | payer SELFPAY ==
[2025-02-03 07:24] LABS: Red Blood Cells-Urine 0 SEEN /hpf (0-5); Squamous Epithelial Cells - UA 0 SEEN /hpf (5-10)
--- OUTSIDE RECORDS SUMMARY | 2025-02-03 07:25 | XMS RPT_ITS | CCD ---
Author Organization [facility] Care Team Providers Care Quartz Orientator Name Role Phone ANDRAE MCGEE Unavailable Unavailable ANDRAE MCGEE Unavailable Unavailable CHEYANNE KU Unavailable Unavailable Cira Ku Unavailable Francisco Eldridge Unavailable [facility] Unavailable Sheldon Rojo Unavailable Unavailable Dhruv Carpio Unavailable Unavailable Michelle Nolan Unavailable Unavailable Unavailable Unavailable Sameer Dover Unavailable Sheldon Wlikinson Unavailable Unavailable Ben, Lorna Unavailable Unavailable Gravius, Earnestine Unavailable Unavailable Slarb, Chanelle Unavailable Unavailable Gravius, Earnestine Unavailable Unavailable Sheldon Rojo Unavailable Unavailable Irving, Mesha Unavailable Unavailable Dhruv Carpio Unavailable Unavailable Emily Marion Unavailable Unavailable Dhruv Cornejo Unavailable Unavailable Cira Ku DO Unavailable Francisco Eldridge DPM Unavailable [phone] [facility], [facility] Unavailable Sameer Dover MD Unavailable Emily Marion LPN Unavailable Unavailable Sheldon Rojo RN Unavailable Unavailable Michelle Nolan Unavailable Unavailable Slarb LIFE INSURANCE UNDERWRITER, Chanelle Unavailable Unavailable Gravius RICHMOND, Earnestine Unavailable Unavailable Dhruv Cornejo LPN Unavailable Unavailable Unavailable Unavailable Fabi Chamorro MA Unavailable Unavailable Cira Ku DO Primary Care Provider Dr. Cira Ku Primary Care Provider [phone] Dr. Cira Ku Referring Provider Dr. Alex Al Attending Provider PIERO Ritter Attending Provider Cira Ku DO Unavailable Cira Ku DO Unavailable Chente DPM, Francisco Bradshaw Unavailable [facility], [facility] Unavailable Sameer Dover MD Unavailable Irving LIFE INSURANCE UNDERWRITER, Mesha Unavailable Unavailable Gravius PUBLIC RELATIONS ASSISTANT, Earnestine Unavailable Unavailable Darrel RN, Sheldon Unavailable Unavailable Doni LIFE INSURANCE UNDERWRITER, Emily Unavailable Unavailable Michelle Nolan Unavailable Unavailable Slabenjamin LIFE INSURANCE UNDERWRITER, Chanelle Unavailable Unavailable Clemente LIFE INSURANCE UNDERWRITER, Dhruv Unavailable Unavailable Unavailable Unavailable Dr. Cira Ku Primary Care Provider [phone] Dr. Cira Ku Referring Provider Dr. Alex Al Attending Provider Cira Ku DO Unavailable [phone] Marilu PUBLIC RELATIONS ASSISTANT, Kayela Unavailable Unavailable Cira Ku DO Primary Care Provider Unavailable Unavailable Cira Ku DO Attending Unavailable Pita Paul MD Referring Unavailable Cira Ku DO Consulting Unavailable India Montejo MA Unavailable Unavailable Dr. Cira Ku Primary Care Provider [phone] Dr. Cira Ku Referring Provider PIERO Cruz Attending Provider Dr. Cira Ku Primary Care Provider [phone] Dr. Bo Huitron Attending Provider Dr. Jhonatan Zapata Attending Provider Cira Ku DO Primary Care Provider Dr. Cira Ku DO Primary Care Provider Referred, Self Attending Provider Unavailable Andreina WU, Dr. Bhatt Attending Provider Unavailab conrado Hdz MD, Dr. Bhatt Referring Provider Unavailab Jillian WU, Zeyad Emergency Provider Oli SAAVEDRA, Dr. Aguirre Admit Provider [phone] Dr. Timothy Baird DO Attending Provider Oli SAAVEDRA, Dr. Aguirre Other Provider [phone] Aura WU, Dr. Vee Ross Attending Provider Aura WU, Dr. Vee Ross Other Provider LISSETTE CURIEL Attending Unavailable ELMIRA, CIRA CHUNG Primary Care Unavailab LISSETTE Fierro Referring Unavailable LISSETTE CURIEL Attending Unavailable ELMIRA, CIRA SHELDON Primary Care Unavailab le Elmira, Cira Primary Care Unavailable Elmira, Cira Attending Unavailable Elmira, Cira Referring Unavailable Elmira, Cira Primary Care Unavailable Referred, Self Attending Unavailable Referred, Self Attending Unavailable Elmira, Cira Primary Care Unavailable Elmira, Cira Primary Care Unavailable Referred, Self Attending Unavailable Referred, Self Attending Unavailable Elmira, Cira Primary Care Unavailable Elmira, Cira Primary Care Unavailable Karim, Adham Attending Unavailable Timothy Baird Consulting Unavailable Timothy Baird Attending Unavailable Elmira, Cira Primary Care Unavailable Karim, Adham Referring Unavailable Timothy Baird Admitting Unavailable KorVee payne Attending Unavailable Koram, Vee Ross Consulting Unavailable Karim, Adham Attending Unavailable Karim, Adham Referring Unavailable Elmira, Cira Primary Care Unavailable Timothy Baird Admitting Unavailable Timothy Baird Consulting Unavailable Karim, Adham Referring Unavailable Koram, Vee Vandana Attending Unavailable Elmira, Cira Primary Care Unavailable Allergies Allergy Classification Reported Allergen(s) Allergy Type Date of Onset Reaction(s) Facility Penicillins (antibiotic) (4 sources) Penicillins; Translations: [Penicillins] Drug Allergy [facility]; [facility] Work Phone: Comment on above: rash Sulfonamides (antibiotic) (4 sources) Sulfonamides (Antibiotic); Translations: [Sulfa Drugs] Drug Allergy [facility]; [facility] Work Phone: (13 sources) Corticosteroids; Translations: [CORTICOSTEROIDS (GLUCOCORTICOIDS) ] Propensity to adverse reactions (disorder) 05-16-19 15 Shortness of Breath, Other: See Comments [facility] Repository (13 sources) erythromycin; Translations: [ERYTHROMYCIN] Drug Allergy 09-02-19 09 Intolerance, GI Upset [facility] Repository (13 sources) meperidine; Translations: [MEPERIDINE (PF)] Drug Allergy 07-14-19 13 Other: See Comments, Itching [facility] Repository (20 sources) Penicillins; Translations: [PENICILLINS] Propensity to adverse reactions (disorder) 05-07-19 11 [facility] Repository Comment on above: rash (20 sources) Sulfonamides (Antibiotic); Translations: [SULFA (SULFONAMIDE ANTIBIOTICS)] Propensity to adverse reactions (disorder) 09-02-19 09 [facility] Repository (15 sources) COBEX; Translations: [COBEX] Propensity to adverse reactions (disorder) 09-02-19 09 Other: See Comments, [facility] Repository (2 sources) OTHER; Translations: [OTHER] Propensity to adverse reactions (disorder) 09-02-19 09 [facility] Repository (13 sources) NITROFURANTOIN MONOHYD/M-CRYST; Translations: [NITROFURANTOIN MONOHYD/M-CRYST] Propensity to adverse reactions (disorder) 06-05-19 11 Other: See Comments, [facility] Repository (20 sources) Sulfonamides (Antibiotic); Translations: [Sulfa Drugs] allergy to substance [facility] Work Phone: (20 sources) Erythromycins; Translations: [Erythromycins] allergy to substance [facility] Work Phone: (20 sources) Iodinated Contrast; Translations: [Iodinated Contrast] allergy to substance [facility] Work Phone: (1 source) allergy to substance [facility] Work Phone: (1 source) allergy to substance [facility] Work Phone: (1 source) allergy to substance [facility] Work Phone: (1 source) allergy to substance [facility] Work Phone: (20 sources) steroid Cobex allergy to substance [facility] Work Phone: (10 sources) iodinated contrast [Other] Propensity to adverse reactions 09-02-19 09 [facility] (2 sources) Contrast media Allergy to substance 07-17-19 [facility] Work Phone: (8 sources) Cortisone Drug Allergy 07-17-19 Throat swelling [facility] (8 sources) Erythromycin Drug Allergy 07-17-19 Unknown [facility] (4 sources) Iodine; Translations: [IODINE] Drug Allergy 07-17-19 [facility] Work Phone: (8 sources) Meperidine Drug Allergy 07-17-19 Unknown [facility] (8 sources) Nitrofurantoin Drug Allergy 07-17-19 Irregular HB, vision changes, diaphoresis [facility] (9 sources) Iodinated Contrast Media; Translations: [Iodinated Contrast Media] Allergy to substance 07-17-19 [facility] (2 sources) immunizations Allergy to substance 07-17-19 [facility] Work Phone: (1 source) Allergy to substance (finding) [facility] Work Phone: (1 source) Allergy to substance (finding) [facility]; [facility] Work Phone: (1 source) Allergy to substance (finding) [facility]; [facility] Work Phone: (1 source) Allergy to substance (finding) [facility]; [facility] Work Phone: (1 source) Allergy to substance (finding) [facility]; [facility] Work Phone: (1 source) Allergy to substance (finding) [facility]; [facility] Work Phone: (1 source) Allergy to substance (finding) [facility]; [facility] Work Phone: (1 source) Allergy to substance (finding) [facility]; [facility] Work Phone: (1 source) Allergy to substance (finding) [facility]; [facility] Work Phone: (1 source) Allergy to substance (finding) [facility]; [facility] Work Phone: (1 source) Allergy to substance (finding) [facility]; [facility] Work Phone: (1 source) Allergy to substance (finding) [facility]; [facility] Work Phone: (1 source) Allergy to substance (finding) [facility]; [facility] Work Phone: (1 source) Allergy to substance (finding) [facility]; [facility] Work Phone: (1 source) Allergy to substance (finding) [facility]; [facility] Work Phone: (5 sources) vitamin B12 Drug Allergy 06-10-19 23 Anaphylaxis [facility] (1 source) Allergy to substance (finding) [facility]; [facility] Work Phone: (1 source) Cortisone Drug Allergy 10-12-19 [facility] (1 source) Erythromycin Drug Allergy 10-12-19 [facility] (1 source) Meperidine Drug Allergy 10-12-19 [facility] (1 source) Nitrofurantoin Drug Allergy 10-12-19 [facility] (1 source) vitamin B12 Drug Allergy 01-06-20 [facility] Repository Medications Current Medications Medication Drug Class(es) Dates Sig (Normalized) Sig (Original) ascorbic acid 1000 mg oral tablet (19 sources) Vitamin C Start: 12-03-2020 take 1 g by mouth once daily Ascorbic Acid (Vitamin C) 1,000 mg tablet Active 1 g PO DAILY December 03, 2020 12:00am supplement Start: 12-03-2020 take 1 g by mouth once daily A scorbic Acid (Vitamin C) Active 1 GM PO DAILY December 03, 2020 12:00am take 1 tablet by aki th once daily ascorbic acid, vitamin C, (VITAMIN C) 500 mg tablet Indications: Complex endometrial hyperplasia with atypia , Preoperative examination , Preop examination Take 500 mg by mouth once daily. Active Comment on above: Take 500 mg by mouth once daily. Ascorbic Acid-Elderberry Fruit (4 sources) Start: 11-06-2021 take 1 tablet by mouth once daily Ascorbic Acid-Elderberry Fruit Active 1 TABLET PO DAILY November 05, 2021 11:00pm Start: 11-06-2021 take 1 tablet by aki th once daily Ascorbic Acid-Elderberry Fruit Active 1 TABLET PO DAILY November 06, 2021 12:00am Ascorbic Acid-Elderberry Fru it 100-50 mg tablet,chewable (3 sources) Start: 11-06-2021 Ascorbic Acid- Elderberry Fruit 100-50 mg tablet,chewable Active 1 {tbl} PO DAILY as needed for during cold and flu season, supplement November 06, 2021 12:00am Start: 11-06-2021 Ascorbic Acid- Elderberry Fruit 100-50 mg tablet,chewable Active 1 {tbl} PO DAILY November 06, 2021 12:00am aspirin 81 mg oral tablet (20 sources) Platelet Aggregation Inhibitor, Nonsteroidal Anti-inflammatory Drug End: 08-02-2008 take 1 tablet by mouth once daily Aspirin 81 mg tab Take 81 mg by mouth once daily. Active End: 08-02-2008 ASPIRIN LOW DOSE, 81MG (Oral Tablet) for 0 days Refills: 0 Ordered: 02-Aug-2008 Yessenia Aviles End : 02-Aug-2008 Discontinued cholecalciferol 0.05 mg oral capsule (20 sources) Vitamin D Start: 12-03-2020 take 1 capsule by mouth once daily Cholecalciferol (Vitamin D3) 50 mcg (2,000 unit) capsule Active 50 ug PO DAILY December 03, 2020 12:00am supplement Start: 10-14-2018 End: 10-20-2018 take 1 tablet by mouth once daily Cholecalciferol (Vitamin D3) 1,000 unit (25 mcg) tablet Discontinued 1000 U PO DAILY October 14, 2018 12:00am October 20, 2018 9:07am Comment on above: Take 1,000 Units by mouth once daily. Lactobacillus Combination No.9 (Adult 50 Plus Probiotic) 4 billion cell capsule (8 sources) Start: take 4 capsules by mouth once daily Lactobacillus Combination No.9 (Adult 50 Plus Probiotic) 4 billion cell capsule Active 4000 MMU CELLS PO DAILY April 12, 2021 11:19am administer with a meal Start: 04-12-2021 take 4 capsules by m outh once daily Lactobacillus Combination No.9 (Adult 50 Plus Probiotic) 4 billion cell capsule Active 4000 NMA PO DAILY April 12, 2021 1:00am administer with a meal Start: 04-12-2021 take 4 capsules by m outh once daily Lactobacillus Combination No.9 (Adult 50 Plus Probiotic) 4 billion cell capsule Active 4000 MMU CELLS PO DAILY April 12, 2021 12:00am administer with a meal Start: 04-12-2021 take 4 capsules by m outh once daily Lactobacillus Combination No.9 (Adult 50 Plus Probiotic) 4 billion cell capsule Active 4000 MMU CELLS PO DAILY April 12, 2021 1:00am administer with a meal LACTOBACILLUS COMBO NO.6 ([place] OBIOTIC COMPLEX ORAL) (11 sources) LACTOBACILLUS CO MBO NO.6 (PROBIOTIC COMPLEX ORAL) Take by mouth once daily. Pre Probiotic daily Active LACTOBACILLUS CO MBO NO.6 (PROBIOTIC COMPLEX ORAL) Take by mouth once daily. Pre Probiotic daily 0 Active Comment on above: Take by mouth once d aily. Pre Probiotic daily LORazepam 0.5 mg oral tablet (20 sources) Benzodiazepine Start: 0 End: 3 take 0.5 mg by mouth once daily as needed LORazepam (ATIVAN) 0.5 mg Take 0.5 mg by mouth once daily as needed. 10/27/2019 Active Start: 09-07-2019 End: 11-06-2021 take 0.25 mg by mouth once daily Lorazepam 0.5 mg tablet Discontinued 0.25 mg PO DAILY November 01, 2020 3:14pm November 06, 2021 11:19am anxiety Start: 09-07-2019 End: 11-06-2021 take 0.25 mg by mouth once daily Lorazepam Discontinued 0.25 MG PO DAILY November 01, 2020 3:14pm November 06, 2021 11:19am Start: 09-01-2018 End: 10-16-2019 take 1 tablet by mouth once daily as needed for anxiety Lorazepam 0.5 mg tablet Discontinued 0.5 mg PO DAILY as needed for anxiety October 14, 2018 12:00am September 07, 2019 9:42am Start: 05-05-2018 End: 07-04-2018 take 1 tablet by mouth once daily as needed Ativan 0.5 MG Oral Tablet 1 (one) Tablet qd prn for 60 days Quantity: 10 {Tablet} Refills: 0 Ordered: 05-May-2018 Elmira SAAVEDRA Cira Houston DO Start : 05-May-2018 End : 04-Jul-2018 Inactive Dispense as Written Comments: Ok for genericOarrs reviewed 05/05/18anxiety F41.9 Start: 03-29-2016 End: 10-14-2018 take 0.25 mg by mouth once daily Lorazepam 0.5 MG tablet Discontinued 0.25 mg PO DAILY March 29, 2016 1:00am October 14, 2018 11:38am anxiety Start: 03-29-2016 End: 10-14-2018 take 0.25 mg by mouth once daily Lorazepam Discontinued 0.25 MG PO DAILY March 29, 2016 1:00am October 14, 2018 11:38am Comment on above: Ok for genericOarrs reviewed 05/05/18anxiety F41.9 Ok for genericthirty Oarrs reviewed 08/17/19 called to [facility] F41.9 Ok for genericthirty Oarrs reviewed 10/27/2019 called to [facility] F41.9 thirty anxiety F41.9 Oars reviewed and okay'd called into [facility] 07/25/20ACROSSLPEber thirty anxiety F41.9 Oars reviewed and okay'd thirty anxiety F41.9 Oars reviewed Take 0.5 mg by mouth once daily as needed. Magnesium (1 source) Start: 10-12-19 25 take 1 tablet by mouth at bedtime Magnesium 200 mg tablet Active 200 mg PO AT BEDTIME October 11, 2024 12:00am supplement mecobalamin 1 mg chewable tablet (8 sources) Start: 12-04-19 21 take 1 tablet by mouth once daily Mecobalamin (Vitamin B12) 1,000 mcg tablet,chewable Active 1000 ug PO DAILY December 03, 2020 12:00am supplement MEDICATION, NON-DATABASE (19 sources) MEDICATION, NON-DATABASE reishi once per day Active End: 01-11-2024 MEDICATION, NON-DATABASE nile wagonda 500 mg once per day 01/11/2024 Discontinued (Other) MEDICATION, NON- DATABASE ashwagonda 500 mg once per day 0 Active MEDICATION, NON- DATABASE reishi once per day 0 Active Comment on above: ashwagonda 500 mg on ce per day reishi once per day nitroglycerin 0.4 mg sublingual tablet (19 sources) Nitrate Vasodilator Start: 05-21-2020 nitroglycerin sublingual (NITROQUICK) 0.4 mg SL tablet Indications: Coronary vasospasm Dissolve 1 tablet under the tongue as needed. For Chest Pain. If No Relief CALL 911 25 tablet 1 05/21/2020 Active Start: 10-14-2018 End: 10-20-2018 Nitroglycerin 0.4 mg tablet, sublingual Discontinued 0.4 mg SL every 5 to 15 minutes as needed October 14, 2018 12:00am October 20, 2018 9:07am Start: 10-14-2018 End: 10-20-2018 Nitroglycerin Discontinued 0 .4 MG SL every 5 to 15 minutes October 14, 2018 12:00am October 20, 2018 9:07am Comment on above: Dissolve 1 tablet un alena the tongue as needed. For Chest Pain. If No Relief CALL 911 Selenium (10 sources) Start: 04-12-2021 take 200 ug by mouth once daily Selenium Active 200 MCG PO DAILY April 12, 2021 11:19am Start: 04-12-2021 take 200 ug by mouth once daily Selenium Active 200 MCG PO DAILY April 12, 2021 12:00am Start: 04-12-2021 take 200 ug by mouth once daily Selenium Active 200 MCG PO DAILY April 12, 2021 1:00am Start: 10-14-2018 End: 10-20-2018 take 200 ug by mouth once daily Selenium Discontinued 200 MCG PO DAILY October 14, 2018 2:12pm October 20, 2018 9:07am Start: 10-14-2018 End: 10-20-2018 take 200 ug by mouth once daily Selenium Discontinued 200 MCG PO DAILY October 13, 2018 11:00pm October 20, 2018 8:07am Start: 10-14-2018 End: 10-20-2018 take 200 ug by mouth once daily Selenium Discontinued 200 MCG PO DAILY October 14, 2018 12:00am October 20, 2018 9:07am selenium 200 mcg tab (11 sources) Start: 06-12-2017 take 1 tablet by mouth once daily selenium 200 mcg tab Take 1 tablet by mouth once daily. 06/12/2017 Active Start: 06-12-2017 take 1 tablet by aki th once daily selenium 200 mcg tab Take 1 tablet by mouth once daily. 0 06/12/2017 Active Comment on above: Take 1 tablet by aki th once daily. Selenium 200 mcg tablet (6 sources) Start: 04-12-2021 take 1 tablet by mouth once daily Selenium 200 mcg tablet Active 200 ug PO DAILY April 12, 2021 1:00am jamie's Start: 04-12-2021 take 1 tablet by aki th once daily Selenium 200 mcg tablet Active 200 ug PO DAILY April 12, 2021 1:00am Start: 10-14-2018 End: 10-20-2018 take 1 tablet by mouth once daily Selenium 200 mcg tablet Discontinued 200 ug PO DAILY October 14, 2018 12:00am October 20, 2018 9:07am Fvkzjjx-Qpnt-Umbmx-Oreg-Capr yl (4 sources) Start: 11-01-2020 Ldiqynw-Dseu-Ocprd-Oreg-Capr yl Active CAP PO November 01, 2020 3:16pm Start: 11-01-2020 Quhkrbo-Ossa-F fdrh-Uwdp-Xpzins Active CAP PO October 31, 2020 11:00pm Start: 11-01-2020 Hrpxrrw-Phgf-H yzvo-Pmel-Fjtobi Active CAP PO November 01, 2020 12:00am Mdxyjvsn-Zual-Vrazz-Oreg-Cap ry (1 source) Start: 11-01-2020 Fwxcdhej-Mdsj-Cobpm-Oreg-Cap ry Active CAP PO November 01, 2020 12:00am Lyhxqani-Kvte-Mppaa-Oreg-Cap ry 100 mg-150 mg- 50 mg-150 mg capsule (3 sources) Start: 11-01-2020 take 1 capsule by mouth once daily as needed Xhhinkmh-Vxdi-Sjfml-Oreg-Capry 100 mg-150 mg- 50 mg-150 mg capsule Active 1 NMA PO DAILY NEEDED November 01, 2020 12:00am supplement, bone health Start: 11-01-2020 Turmeric-Ging- Attte-Wxbf-Yaifq 100 mg-150 mg- 50 mg-150 mg capsule Active 1 NMA PO November 01, 2020 12:00am Start: 11-01-2020 Turmeric-Ging- Ejyrr-Synn-Xfvci 100 mg-150 mg- 50 mg-150 mg capsule Active NMA PO November 01, 2020 12:00am Vitamin B Complex (Balanced B-50) tablet (2 sources) Start: 10-11-2024 Vitamin B Comp jamie (Balanced B-50) tablet Active 1 {tbl} PO DAILY October 11, 2024 12:00am supplement Start: 10-11-2024 Vitamin B Comp jamie (Balanced B-50) tablet Active 1 {tbl} PO DAILY October 11, 2024 12:00am Completed/Discontinued Medications Medication Drug Class(es) Dates Sig (Normalized) Sig (Original) amLODIPine 2.5 mg oral tablet (20 sources) Dihydropyridine Calcium Channel Kadi Start: 07-02-2022 End: 10-11-2024 take 1 tablet by mouth once daily as needed Amlodipine 2.5 mg tablet Discontinued 2.5 mg PO DAILY as needed for Ordered by Dr. Ku for travel if BP goes up July 03, 2022 12:00am October 11, 2024 2:09pm Start: 09-10-2018 End: 08-17-2019 Comment on above: pt to d/c metoprolol amoxicillin 250 mg oral capsule (20 sources) Penicillin-class Antibacterial Start: 01-06-20 End: 10-12-19 take 2 capsules by mouth twice daily Amoxicillin 250 mg capsule Discontinued 500 mg PO TWICE A DAY 28 January 05, 2023 1:00am October 11, 2024 2:09pm Start: 01-05-2023 take 500 mg by mouth twice daily Amoxicillin Active 500 MG PO TWICE A DAY January 05, 2023 1:00am Start: 08-25-2019 End: 09-04-2019 Start: 10-20-2018 End: 10-25-2018 take 1 capsule by mouth three times daily Amoxicillin 500 mg capsule Discontinued 500 mg PO THREE TIMES A DAY 15 5 0 October 20, 2018 12:00am October 24, 2018 12:00am October 25, 2018 12:07am Pt notes tolerating amoxicillin without side effects, noting only allergic reaction (rash) with penicillin Start: 05-11-2009 take 1 tablet by aki twice daily AMOXICILLIN, 500MG (Oral Tablet) 1 Tablet BID for 0 days Quantity: 20 {Tablet} Refills: 0 Ordered: 25-Sep-2009 ROBYN Monroy Start : 11-May-2009 Inactive amoxicillin 875 mg / clavula fatmata 125 mg oral tablet (20 sources) Penicillin-class Antibacterial Start: 05-11-2009 Start: 05-11-2009 take 1 tablet by aki th twice daily AUGMENTIN, 875-125MG (Oral Tablet) 1 (one) Tablet bid for 0 days Quantity: 20 {Tablet} Refills: 0 Ordered: 11-May-2009 Sheldon Rojo RN Start : 11-May-2009 Inactive biotin 1 mg oral capsule (16 sources) Start: 10-14-2018 End: 10-20-2018 take 1 capsule by mouth once daily Biotin 1 mg capsule Discontinued 1 mg PO DAILY October 14, 2018 12:00am October 20, 2018 9:07am End: 01-11-2024 take 1 tablet by mouth every other day BIOTIN ORAL Indications: Complex endometrial hyperplasia with atypia , Preoperative examination , Preop examination Take 1 tablet by mouth every other day. 01/11/2024 Discontinued (Other) take 1 tablet by aki th every other day BIOTIN ORAL Indications: Complex endometrial hyperplasia with atypia , Preoperative examination , Preop examination Take 1 tablet by mouth every other day. 0 Active Comment on above: Take 1 tablet by aki th every other day. calcium ascorbate 500 mg oral tablet (16 sources) Start: 10-15-19 End: 10-21-19 19 take 1 tablet by mouth once daily as needed Ascorbate Calcium (Vitamin C) 500 mg tablet Discontinued 500 mg PO DAILY as needed October 15, 2018 8:36am October 20, 2018 9:07am ciprofloxacin 250 mg oral tablet (20 sources) Quinolone Antimicrobial Start: 08-24-19 20 End: 08-25-19 20 citalopram 10 mg oral tablet (20 sources) Serotonin Reuptake Inhibitor Start: 06-12-19 11 End: 07-24-19 11 clindamycin 150 mg oral capsule (20 sources) Lincosamide Antibacterial Start: 08-03-19 10 Comment on above: for 7 days FYI PT WILL CALL IF SHE WANTS TO HAVE FILLED CYANOCOBALAMIN, VITAMIN B-12, (VITAMIN B-12 ORAL) (11 sources) End: 11-01-19 25 CYANOCOBALAMIN, VITAMIN B-12, (VITAMIN B-12 ORAL) Take by mouth. 10/31/2024 Discontinued CYANOCOBALAMIN, VITAMIN B-12, (VITAMIN B-12 ORAL) Take by mouth. Active CYANOCOBALAMIN, VITAMIN B-12, (VITAMIN B-12 ORAL) Take by mouth. 0 Active Comment on above: Take by mouth. escitalopram 10 mg oral tabl et (20 sources) Serotonin Reuptake Inhibitor Start: 11-02-2020 End: 12-02-2020 Start: 11-02-2020 End: 12-02-2020 take 0.5 tablet by mouth once daily at bedtime Lexapro 10 MG Oral Tablet 1/2 (one half) Tablet qhs for 30 days Quantity: 30 {Tablet} Refills: 0 Ordered: 02-Nov-2020 Cira Ku DO, DO, Kathleen Start : 02-Nov-2020 End : 02-Dec-2020 Inactive Start: 11-01-2020 End: 12-03-2020 take 2.5 mg by mouth at bedtime Escitalopram Oxalate 5 mg tablet Discontinued 2.5 mg PO AT BEDTIME November 01, 2020 12:00am December 03, 2020 3:19pm Start: 11-01-2020 End: 12-03-2020 take 2.5 mg by mouth at bedtime Escitalopram Oxalate Discontinued 2.5 MG PO AT BEDTIME November 01, 2020 12:00am December 03, 2020 3:19pm Start: 08-20-2020 take 0.5 tablet by m outh once daily at bedtime Lexapro 10 MG Oral Tablet 1/2 (one half) Tablet qhs for 30 days Quantity: 30 {Tablet} Refills: 0 Ordered: 20-Aug-2020 Cira Ku DO, DO, Kathleen Start : 20-Aug-2020 Active Start: 10-13-2019 take 0.5 tablet by m outh once daily at bedtime Lexapro 10 MG Oral Tablet 1/2 (one half) Tablet qhs for 0 days Quantity: 30 {Tablet} Refills: 3 Ordered: 13-Oct-2019 Emily Marion LPN Start : 13-Oct-2019 Active Start: 09-19-2019 End: 10-03-2019 take 0.5 tablet by mouth once daily at bedtime Lexapro 10 MG Oral Tablet 1/2 (one half) Tablet qhs for 0 days Quantity: 30 {Tablet} Refills: 3 Ordered: 03-Oct-2019 Dhruv Carpio LPN Start : 19-Sep-2019 End : 03-Oct-2019 Inactive glutathione 50 mg oral tablet (8 sources) Start: 10-15-2018 End: 10-20-2018 take 1 capsule by mouth once daily as needed Glutathione 50 mg capsule Discontinued 50 mg PO DAILY as needed 0 October 15, 2018 12:00am October 20, 2018 9:07am ivermectin 3 mg oral tablet (20 sources) Antiparasitic, Pediculicide Start: 02-11-2021 End: 03-17-2022 Lactobacillus Combination No.8 (Adult Probiotic) 3 billion cell capsule (8 sources) Start: 10-14-2018 End: 10-20-2018 take 3 capsules by mouth once daily Lactobacillus Combination No.8 (Adult Probiotic) 3 billion cell capsule Discontinued 3000 MMU CELLS PO DAILY October 14, 2018 2:23pm October 20, 2018 9:07am Start: 10-14-2018 End: 10-20-2018 take 3 capsules by mouth once daily Lactobacillus Combination No.8 (Adult Probiotic) 3 billion cell capsule Discontinued 3000 NMA PO DAILY October 14, 2018 12:00am October 20, 2018 9:07am Start: 10-14-2018 End: 10-20-2018 take 3 capsules by mouth once daily Lactobacillus Combination No.8 (Adult Probiotic) 3 billion cell capsule Discontinued 3000 MMU CELLS PO DAILY October 13, 2018 11:00pm October 20, 2018 8:07am Start: 10-14-2018 End: 10-20-2018 take 3 capsules by mouth once daily Lactobacillus Combination No.8 (Adult Probiotic) 3 billion cell capsule Discontinued 3000 MMU CELLS PO DAILY October 14, 2018 12:00am October 20, 2018 9:07am lactobacillus reuteri [id number] unt chewable tablet (20 sources) End: 05-11-2009 End: 05-11-2009 take 1 tablet by mouth once PROBIOTICA (PO Chew Tab) f or 0 days Refills: 0 Ordered: 11-May-2009 Cira Ku DO, DO, Kathleen End : 11-May-2009 Discontinued Comments: This order discontinued per [facility]. Comment on above: This order discontin ued per [facility]. lisinopril 5 mg oral tablet (8 sources) Angiotensin Converting Enzyme Inhibitor Start: 1 End: 1 take 1 tablet by mouth once daily Lisinopril 5 mg tablet Discontinued 5 mg PO DAILY 30 November 23, 2020 12:00am December 03, 2020 3:19pm losartan potassium 25 mg oral tablet (20 sources) Angiotensin 2 Receptor Kadi Start: 0 End: 0 Losartan 25 MG tablet Discontinued 12.5 mg PO DAILY August 11, 2019 12:00am September 07, 2019 9:42am Start: 08-11-2019 End: 09-07-2019 take 12.5 mg by mouth once daily Losartan Discontinued 12.5 MG PO DAILY August 11, 2019 12:00am September 07, 2019 9:42am Start: 09-01-2016 End: 09-08-2016 meclizine hydrochloride 12.5 mg oral tablet (20 sources) Antiemetic Start: 09-19-2014 End: 07-02-2015 Comment on above: twenty metoprolol tartrate 25 mg or al tablet (20 sources) beta-Adrenergic Kadi Start: 09-11-2022 Start: 07-02-2022 Start: 06-10-2022 Start: 08-12-2021 Start: 08-12-2021 take 0.5 tablet by m outh twice daily Metoprolol Tartrate 25 MG Oral Tablet 1/2 Tablet bid for 0 days Quantity: 30 {Tablet} Refills: 3 Ordered: 12-Aug-2021 Cira Ku DO, DO, Kathleen Start : 12-Aug-2021 Active Comments: moodispaw adjusted Start: 12-06-2020 End: 05-09-2021 Metoprolol Tartrate 25 mg ta blet Discontinued 12.5 mg PO AT BEDTIME May 09, 2021 9:28am May 09, 2021 4:50pm Needs to be made by [employer] Start: 12-06-2020 End: 05-09-2021 take 12.5 mg by mouth at bedtime Metoprolol Tartrate Discontinued 12.5 MG PO AT BEDTIME May 09, 2021 9:28am May 09, 2021 4:50pm Needs to be made by [employer] Start: 12-03-2020 End: 12-03-2020 Metoprolol Tartrate 25 mg ta blet Discontinued 12.5 mg PO TWICE A DAY December 03, 2020 3:18pm December 03, 2020 3:49pm Anxiety Start: 12-03-2020 End: 12-03-2020 take 12.5 mg by mouth twice daily Metoprolol Tartrate Discontinued 12.5 MG PO TWICE A DAY December 03, 2020 3:18pm December 03, 2020 3:49pm Start: 10-03-2019 take 0.5 tablet by m outh once daily Metoprolol Tartrate 25 MG Oral Tablet 1/2 Tablet daily for 0 days Quantity: 30 {Tablet} Refills: 3 Ordered: 27-Oct-2019 Ciar Ku DO, DO, Kathleen Start : 27-Oct-2019 Active Comments: taking 12.5 Start: 09-07-2019 End: 12-06-2020 Metoprolol Tartrate 25 mg ta blet Discontinued 12.5 mg PO DAILY November 01, 2020 3:14pm December 03, 2020 3:21pm Anxiety Start: 09-07-2019 End: 12-06-2020 take 12.5 mg by mouth once daily Metoprolol Tartrate Discontinued 12.5 MG PO DAILY November 01, 2020 3:14pm December 03, 2020 3:21pm Start: 08-11-2019 End: 09-07-2019 take 2 tablets by mouth once daily Metoprolol Succinate 25 MG tablet extended release 24 hr Discontinued 12.5 mg PO DAILY August 11, 2019 12:00am September 07, 2019 9:41am Start: 08-11-2019 End: 09-07-2019 take 12.5 mg by mouth once daily Metoprolol Succinate Discontinued 12.5 MG PO DAILY August 11, 2019 12:00am September 07, 2019 9:41am Start: 08-10-2019 End: 08-11-2019 Metoprolol Tartrate 25 MG ta blet Discontinued 12.5 mg PO NEEDED as needed for Blood Pressure August 10, 2019 12:00am August 11, 2019 10:00am patient only takes if going into a high stressful situation or high bp Start: 08-10-2019 End: 08-11-2019 Metoprolol Tartrate Disconti nued 12.5 MG PO NEEDED August 10, 2019 12:00am August 11, 2019 10:00am patient only takes if going into a high stressful situation or high bp Start: 10-14-2018 End: 10-27-2018 Metoprolol Tartrate 25 mg ta blet Discontinued 12.5 mg PO DAILY October 27, 2018 2:36pm October 27, 2018 2:37pm palpitations Start: 10-14-2018 End: 10-27-2018 take 12.5 mg by mouth once daily Metoprolol Tartrate Discontinued 12.5 MG PO DAILY October 27, 2018 2:36pm October 27, 2018 2:37pm Start: 09-09-2018 End: 08-17-2019 take 0.5 tablet by mouth once daily Metoprolol Tartrate 25 MG Oral Tablet 1/2 Tablet daily for 0 days Quantity: 30 {Tablet} Refills: 3 Ordered: 17-Aug-2019 Earnestine Claudio CMA Start : 09-Sep-2018 End : 17-Aug-2019 Inactive Comments: taking 12.5 Start: 09-07-2018 take 1 tablet by aki th once daily as needed Metoprolol Tartrate 25 MG Oral Tablet 1 Tablet daily prn palp for 0 days Quantity: 30 {Tablet} Refills: 3 Ordered: 07-Sep-2018 Cira Ku DO, DO, Kathleen Start : 07-Sep-2018 Active Comments: taking 12.5 Start: 03-03-2018 take 0.5 tablet by m outh twice daily metoprolol tartrate, short acting, (LOPRESSOR) 25 mg tablet Take 0.5 tablets by mouth twice daily. For rapid heart rates 60 tablet 11 03/03/2018 Active Start: 03-29-2016 End: 10-14-2018 take 6.25 mg by mouth once daily as needed for anxiety Metoprolol Tartrate 25 MG tablet Discontinued 6.25 mg PO DAILY as needed for Anxiety March 29, 2016 1:00am October 14, 2018 11:38am Start: 03-29-2016 End: 10-14-2018 take 6.25 mg by mouth once daily Metoprolol Tartrate Discontinued 6.25 MG PO DAILY March 29, 2016 1:00am October 14, 2018 11:38am Start: 10-26-2012 take 1 tablet by aki th once daily as needed METOPROLOL TARTRATE, 25MG (Oral Tablet) 1 Tablet daily prn palp for 0 days Quantity: 30 {Tablet} Refills: 3 Ordered: 26-Oct-2012 Pita Paul MD Start : 26-Oct-2012 Active Comments: taking 12.5 Comment on above: taking 12.5 moodispaw adjusted Take 0.5 tablets by mouth twice daily. For rapid heart rates Milk thistle extract (20 sources) End: 09-21-2008 End: 09-21-2008 MILK THISTLE EXTRACT, 140MG (Oral Capsule) for 0 days Refills: 0 Ordered: 21-Sep-2008 ROBYN Monroy LPN End : 21-Sep-2008 Inactive Multivitamin preparation (20 sources) End: 09-21-2008 End: 09-21-2008 MULTIVITAMIN (PO Tab) for 0 days Refills: 0 Ordered: 21-Sep-2008 ROBYN Monroy LPN End : 21-Sep-2008 Inactive End: 09-21-2008 MULTIVITAMIN (PO Tab) for 0 days Refills: 0 Ordered: 21-Sep-2008 ROBYN Monroy End : 21-Sep-2008 Inactive pravastatin sodium 10 mg oral tablet (8 sources) HMG-CoA Reductase Inhibitor Start: 08-11-2019 End: 09-07-2019 take 1 tablet by mouth once daily Pravastatin 10 MG tablet Discontinued 10 mg PO DAILY 30 0 August 11, 2019 12:00am September 07, 2019 9:42am silver sulfADIAZINE 10 mg/ml topical cream (20 sources) Sulfonamide Antibacterial SILVADENE, 1% (E xternal Cream) apply to affected area Cream tid/prn for 0 days Quantity: 1 {Cream} Refills: 1 Ordered: 11-May-2009 Sheldon Rojo RN Inactive vpjwjsv-jral-xkuly-oreg-capr yl 100 mg-150 mg- 50 mg-150 mg cap (6 sources) End: 01-12-2023 poeaisf-vcoc-htjwh-oreg-capr yl 100 mg-150 mg- 50 mg-150 mg cap Take by mouth. 0 01/12/2023 Discontinued vwqzzcg-zxul-xox hx-itzf-xtljpf 100 mg-150 mg- 50 mg-150 mg cap Take by mouth. 0 Active Comment on above: Take by mouth. Vitamin B Complex (B Complex-Vitamin B12) tablet (8 sources) Start: 10-15-2018 End: 10-20-2018 take 1 tablet by mouth once daily Vitamin B Complex (B Complex-Vitamin B12) tablet Discontinued 1 TABLET PO DAILY October 15, 2018 8:36am October 20, 2018 9:07am Start: 10-15-2018 End: 10-20-2018 Vitamin B Complex (B Complex -Vitamin B12) tablet Discontinued 1 {tbl} PO DAILY October 15, 2018 12:00am October 20, 2018 9:07am Start: 10-15-2018 End: 10-20-2018 take 1 tablet by mouth once daily Vitamin B Complex (B Complex-Vitamin B12) tablet Discontinued 1 TABLET PO DAILY October 14, 2018 11:00pm October 20, 2018 8:07am Start: 10-15-2018 End: 10-20-2018 take 1 tablet by mouth once daily Vitamin B Complex (B Complex-Vitamin B12) tablet Discontinued 1 TABLET PO DAILY October 15, 2018 12:00am October 20, 2018 9:07am VITAMIN E ORAL (8 sources) End: 01-11-2024 VITAMIN E ORAL Take by mouth . 01/11/2024 Discontinued VITAMIN E ORAL T joyce by mouth. 0 Active Comment on above: Take by mouth. Problems Active Problems Problem Classification Problem Date Documented Da te Episodic/Chronic Abdominal pain (20 sources) Abdominal pain; Translations: [Abdominal pain] Resolved: 9 08-12-2018 Episodic Acute myocardial infarction (20 sources) Myocardial infarction; Translations: [Non-ST elevation AK (NSTEMI)] 08-17-2019 Chronic Comment on above: going to start cardi ac rehab-- doesnt tolerate BB/gurdeep #3 AK now, going to start cardiac rehab-- doesnt tolerate BB/gurdeep Administrative/social admission (20 sources) Counseling procedure with explicit context; Translations: [Vaccine counseling] 02-11-2021 Episodic Allergic reactions (20 sources) Eczema; Translations: [Dermatitis, eczematoid] 11-15-2018 Episodic Anxiety disorders (20 sources) Anxiety; Translations: [Anxiety] 07-14-2017 Chronic Comment on above: pt didnt start lexap ro -- her own fears -- she will thikhk about Cancer of uterus (20 sources) Malignant neoplasm of endometrium of corpus uteri ; Translations: [Malignant neoplasm of endometrium] Onset: 7 04-30-2016 Chronic Comment on above: 05/09. 1A no chemo/ra dtn, hyst by . paps q 6 months x 5 years. Cancer of uterus (20 sources) History of malignant neoplasm of uterine body; Translations: [History of uterine cancer] 05-28-2018 Episodic Comment on above: s/p LUZ with BSO -- ovaries had a cyst adenoma s/p LUZ with BSO -- ovaries had a cyst adenomadoing hrt is not an option per oncology Cardiac dysrhythmias (14 sources) Supraventricular tachycardia; Translations: [Supraventricular tachycardia] Onset: 1 08-08-2010 Chronic Cataract (20 sources) Cataract; Translations: [Cataract] Resolved: 4 09-16-2013 Chronic Conditions associated with dizziness or vertigo (20 sources) Vertigo; Translations: [Benign paroxysmal positional vertigo] Resolved: 6 07-14-2017 Episodic Comment on above: see discussion in c/ c box do kurt do flonase - no decong bc bp spikes -- no better see ENT bc mom with menieresconsider craniosacrial manipulation ?- Coronary atherosclerosis and other heart disease (20 sources) Old myocardial infarction; Translations: [Old myocardial infarction] Onset: 0 07-14-2017 Chronic Comment on above: from coronary spasm - dr Baires is cardiolgist-- gettign ekg later this week Deficiency and other anemia (20 sources) Nutritional anemia; Translations: [Vitamin B12 deficiency anemia] 01-20-2018 Episodic Comment on above: supplements now Deficiency and other anemia (20 sources) Deficiency and other anemia Diabetes mellitus without complication (16 sources) Hyperglycemia; Translations: [Hyperglycemia] 06-26-2022 Episodic Disorders of lipid metabolism (11 sources) Hyperlipidemia; Translations: [Hyperlipidemia, unspecified] Onset: 5 Chronic E Codes: Fall (5 sources) Fall (on) (from) other stairs and steps, initial encounter; Translations: [Fall down stairs] Onset: 5 10-11-2024 Episodic Essential hypertension (20 sources) Benign essential hypertension; Translations: [Benign essential hypertension] Onset: 5 07-15-2017 Chronic Comment on above: sensitive to meds-- and havign spikes and lows24 hr urines adn renal scan ( at [facility] from dr rosales) was normalwith 99% of episode of htn spike occruring in sleep (usually 4hr after falls aslseep) will ck for hypoxia /etta ekg with dr rosales june 2018sensitive to meds-- and havign spikes and lows24 hr urines adn renal scan ( at [facility] from dr rosales) was normalwith 99% of episode of htn spike occruring in sleep (usually 4hr after falls aslseep) will ck for hypoxia /etta Fluid and electrolyte disorders (8 sources) Hyponatremia; Translations: [Hypo-osmolality and hyponatremia] 11-05-2020 Episodic Genitourinary symptoms and ill-defined conditions (20 sources) Blood in urine; Translations: [Hematuria] Resolved: 4 09-16-2013 Episodic Headache; including migraine (20 sources) Headache; Translations: [Nonintractable headache, unspecified chronicity pattern, unspecified headache type] 07-14-2017 Episodic Comment on above: prob bp related at t hat time - buchanan currently resolved Headache; including migraine (20 sources) Headache; including migraine Heart valve disorders (20 sources) Mitral valve prolapse; Translations: [Mitral valve prolapse] 07-14-2017 Chronic Immunizations and screening for infectious disease (9 sources) Contact with and (suspected) exposure to other viral communicable diseases; Translations: [Contact with or suspected exposure to other viral communicable disease] Episodic Lymphadenitis (20 sources) Enlargement of lymph nodes; Translations: [SYMPTOM, ENLARGEMENT, LYMPH NODES] 07-14-2017 Episodic Miscellaneous mental health disorders (11 sources) Psychophysiologic insomnia; Translations: [Psychophysiologic insomnia] Onset: 1 11-05-2010 Chronic Nonmalignant breast conditions (20 sources) Fibrocystic disease of breast; Translations: [Fibrocystic breast disease] 07-14-2017 Chronic Nonmalignant breast conditions (20 sources) Solitary cyst of breast; Translations: [CYST OF BREAST, NOS] Resolved: 4 09-16-2013 Episodic Nonspecific chest pain (20 sources) Chest pain; Translations: [Chest pain] Resolved: 4 09-16-2013 Episodic Comment on above: better now. muscular seen in ER. cardiac work up negatiev in past Nutritional deficiencies (20 sources) Vitamin D deficiency; Translations: [Vitamin D deficiency, unspecified] 07-14-2017 Chronic Comment on above: 2K daily and 4k nov thrapril Nutritional deficiencies (20 sources) Vitamin B12 deficiency (non anemic); Translations: [Mineral deficiency] Resolved: 9 01-23-2012 Episodic Other and ill-defined heart disease (20 sources) Takotsubo cardiomyopathy; Translations: [Takotsubo syndrome] Onset: 0 11-21-2019 Chronic Other and ill-defined heart disease (4 sources) Takotsubo syndrome; Translations: [Takotsubo syndrome] Onset: 0 Chronic Other and unspecified benign neoplasm (20 sources) Polyp of colon; Translations: [Colon polyp] 07-14-2017 Episodic Comment on above: colonscopy 09-04 good chamorro Other and unspecified benign neoplasm (8 sources) History of polyp of colon; Translations: [Personal history of colonic polyps] 10-15-2018 Episodic Other circulatory disease (20 sources) Elevated blood-pressure reading without diagnosis of hypertension; Translations: [Elevated blood-pressure reading without diagnosis of hypertension] Resolved: 4 11-28-2014 Episodic Comment on above: having in night with headache now. ativan help. awake fromsleep not sure anxiety. will go see Dr. pinzon neurosleep specialist. will joyce ativan until then. Other circulatory disease (20 sources) Elevated blood pressure; Translations: [Elevated blood pressure reading] 09-09-2018 Episodic Other circulatory disease (14 sources) Labile systemic arterial hypertension; Translations: [Other specified symptoms and signs involving the circulatory and respiratory systems] Onset: 1 09-10-2020 Episodic Other circulatory disease (8 sources) H/O: cardiovascular disease; Translations: [Personal history of other diseases of the circulatory system] 08-10-2019 Episodic Other circulatory disease (10 sources) History of cardiac arrhythmia; Translations: [Personal history of other diseases of the circulatory system] 08-10-2019 Episodic Other circulatory disease (3 sources) Personal history of other diseases of the circulatory system; Translations: [Personal history of other diseases of circulatory system] Onset: 5 Episodic Other connective tissue disease (20 sources) Foot pain; Translations: [Foot pain] Resolved: 4 09-16-2013 Episodic Other connective tissue disease (1 source) Pain in left arm; Translations: [Pain in left arm] Onset: 5 Episodic Other ear and sense organ disorders (20 sources) Otalgia; Translations: [Ear ache] Resolved: 3 02-11-2021 Episodic Other ear and sense organ disorders (20 sources) Pain of ear structure; Translations: [Ear ache] Resolved: 3 06-16-2022 Episodic Other endocrine disorders (20 sources) Other adrenocortical overactivity; Translations: [Increased cortisol level] 07-14-2017 Chronic Other endocrine disorders (20 sources) Hypoglycemia; Translations: [Hypoglycemia] 10-03-2019 Chronic Other endocrine disorders (8 sources) Syndrome of inappropriate vasopressin secretion; Translations: [Syndrome of inappropriate secretion of antidiuretic hormone] 10-28-2020 Chronic Other female genital disorders (1 source) Vaginal bleeding; Translations: [Abnormal uterine and vaginal bleeding, unspecified] Chronic Other gastrointestinal disorders (20 sources) Irritable bowel syndrome; Translations: [Irritable bowel syndrome] 07-14-2017 Chronic Comment on above: stable Other gastrointestinal disorders (20 sources) Diarrhea; Translations: [Diarrhea] Resolved: 9 01-23-2012 Episodic Other gastrointestinal disorders (20 sources) Gas pain; Translations: [Abdominal wind pain] Resolved: 9 08-12-2018 Episodic Other hematologic conditions (2 sources) Raised cardiac enzyme or marker; Translations: [Other specified abnormalities of plasma proteins] Episodic Other hematologic conditions (1 source) Other specified abnormalities of plasma proteins; Translations: [Other specified abnormalities of plasma proteins] Onset: 5 Episodic Other inflammatory condition of skin (20 sources) Psoriasis; Translations: [Psoriasis] 07-14-2017 Chronic Other inflammatory condition of skin (20 sources) Itching ; Translations: [Itching] Resolved: 0 11-15-2018 Episodic Other inflammatory condition of skin (20 sources) Seborrheic dermatitis of scalp; Translations: [Seborrheic dermatitis of scalp] 03-14-2021 Episodic Comment on above: selsum blue with [place] enum sulfide Other injuries and conditions due to external causes (4 sources) Closed injury of head; Translations: [Unspecified injury of head, initial encounter] 10-11-2024 Episodic Other liver diseases (20 sources) AST/SGOT level raised; Translations: [Elevated AST (SGOT)] 08-12-2018 Episodic Other nutritional; endocrine; and metabolic disorders (20 sources) Overweight; Translations: [Body mass index (BMI) exceeds 25] 08-28-2016 Chronic Other nutritional; endocrine; and metabolic disorders (20 sources) Weight loss; Translations: [Weight loss] Resolved: 4 09-16-2013 Episodic Other nutritional; endocrine; and metabolic disorders (20 sources) Body mass index less than 20; Translations: [BMI less than 19,adult] 07-14-2017 Episodic Other screening for suspected conditions (not mental disorders or infectious disease) (20 sources) Liver function tests abnormal; Translations: [Abnormal finding of blood chemistry, unspecified] Onset: 5 Resolved: 9 01-20-2018 Episodic Comment on above: follow trends pt refused Other skin disorders (20 sources) Eruption; Translations: [Skin rash] Resolved: 0 11-15-2018 Episodic Other skin disorders (20 sources) Loss of hair; Translations: [Thinning hair] Resolved: 1 10-03-2019 Episodic Other upper respiratory infections (20 sources) Acute sinusitis, unspecified; Translations: [Acute sinusitis] Resolved: 0 11-28-2014 Episodic Otitis media and related conditions (20 sources) Dysfunction of bilateral eustachian tubes; Translations: [ETD (Eustachian tube dysfunction), bilateral] Resolved: 1 11-02-2020 Episodic Jessica-; endo-; and myocarditis; cardiomyopathy (except that caused by tuberculosis or sexually transmitted disease) (20 sources) Cardiomyopathy; Translations: [Cardiomyopathy] Onset: 3 10-03-2019 Chronic Residual codes; unclassified (20 sources) Postmenopausal state; Translations: [Postmenopausal] 07-14-2017 Episodic Comment on above: pt declined to do bc cant take meds so why do test -- does ca++, vit D, and wt bearing exericise Residual codes; unclassified (20 sources) Body Mass Index between 19-24, adult; Translations: [Finding of body mass index] 07-14-2017 Episodic Residual codes; unclassified (20 sources) Increased cortisol level; Translations: [Elevated cortisol level] 08-12-2018 Episodic Residual codes; unclassified (20 sources) Chill; Translations: [Chills] Resolved: 1 05-04-2020 Episodic Residual codes; unclassified (20 sources) Overweight; Translations: [Body mass index (BMI) exceeds 25] 08-28-2016 Episodic Residual codes; unclassified (20 sources) Non-smoker; Translations: [Non-smoker] 05-09-2020 Episodic Residual codes; unclassified (20 sources) Influenza vaccination declined; Translations: [Influenza vaccination declined (Renamed from Refused influenza vaccine)] Resolved: 8 07-14-2017 Episodic Spondylosis; intervertebral disc disorders; other back problems (20 sources) Lumbago; Translations: [Low back pain without sciatica, unspecified back pain laterality] Resolved: 4 01-12-2015 Episodic Sprains and strains (8 sources) Strain of muscle of upper limb; Translations: [Strain of unspecified muscle, fascia and tendon at shoulder and upper arm level, left arm, initial encounter] 08-10-2019 Episodic Superficial injury; contusion (8 sources) Abrasion, knee; Translations: [Abrasion, right knee, initial encounter] 08-12-2019 Episodic Thyroid disorders (20 sources) Jamie thyroiditis; 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] Onset: 1 07-14-2017 Chronic Comment on above: eat gluten free eating gluten free Unclassified (20 sources) WWV Resolved: 4 09-16-2013 Comment on above: mammo she will only do every 3 years will do next year Unclassified (20 sources) CYST OF BREAST, NOS (610.0) Unclassified (20 sources) Fibercystic Breast Disease (610.1) Unclassified (20 sources) Unclassified (20 sources) Elevated LFT (790.6) Unclassified (20 sources) Screening status; Translations: [Encounter for screening for malignant neoplasm of colon (Renamed from Special screening for malignant neoplasms, colon)] 07-14-2017 Comment on above: due for colonoscopy 2017 Unclassified (20 sources) BENIGN Resolved: 9 01-23-2012 Comment on above: rt. ovarian cyst [facility] was benign July 2007 Unclassified (20 sources) DEFICIENCY, VITAMIN D NOS (268.9) Unclassified (20 sources) Non-smoker; Translations: [Non-smoker] 07-14-2017 Unclassified (20 sources) Elevated Blood Pressure without diagnosis of Hypertension (796.2) Unclassified (20 sources) ABNORMAL BLOOD CHEMISTRY NEC (790.6) Unclassified (20 sources) Colon polyp (211.3) Unclassified (20 sources) Elevated LFTs Unclassified (20 sources) BMI less than 19,adult Unclassified (20 sources) Jamie's disease Unclassified (20 sources) BMI between 19-24,adult; Translations: [Finding of body mass index] 08-12-2018 Unclassified (20 sources) History of uterine cancer Unclassified (20 sources) Non-ST elevation AK (NSTEMI) Unclassified (20 sources) Thinning hair Urinary tract infections (20 sources) Urinary tract infectious disease; Translations: [UTI (urinary tract infection)] 08-24-2019 Episodic Past or Other Problems Problem Classification Problem Date Documented Date Episodic/Chronic Cardiac dysrhythmias (20 sources) Palpitations; Translations: [Tachycardia] Onset: 08-05-2010 07-14-2017 Episodic Comment on above: tendancy to get tach y so she takes BB -- dr Chambers follows Conditions associated with dizziness or vertigo (20 sources) Conditions associated with dizziness or vertigo Coronary atherosclerosis and other heart disease (20 sources) Coronary atherosclerosis and other heart disease Essential hypertension (20 sources) Essential hypertension Miscellaneous mental health disorders (11 sources) Acute insomnia; Translations: [Adjustment insomnia] Onset: 11-05-2010 11-05-2010 Episodic Other circulatory disease (1 source) Other specified symptoms and signs involving the circulatory and respiratory systems; Translations: [Labile hypertension] Onset: 09-10-2020 Episodic Residual codes; unclassified (8 sources) History of cardiac catheterization; Translations: [Other specified postprocedural states] Onset: 08-10-2019 08-12-2019 Episodic Unclassified (20 sources) Abortions/Miscarriage s; Translations: [Abortions/Miscarriag es] 07-14-2017 Comment on above: 1 Unclassified (20 sources) Deliveries (Parity); Translations: [Deliveries (Parity)] 07-14-2017 Comment on above: 1 Unclassified (20 sources) Patient encounter status; Translations: [Encounter for screening mammogram for breast cancer (Renamed from Encounter for screening mammogram for malignant neoplasm of breast)] Resolved: 10-01-2018 07-14-2017 Comment on above: pt refused amp -. she does m ammo pt refuse yearly doing every 3-4 years last 2009 wants to do next year. aware could have breast cancer miss. colonscopy 2012 good due 5 with fmx. refuse immunization. pt gets mri bc of mejía per dense breast but then when tried to sched said would need dye and cant do dye Unclassified (20 sources) Pregnancies (); Translations: [Pregnancies ()] 07-14-2017 Comment on above: 2 Unclassified (20 sources) SYMPTOM, ENLARGEMENT, LYMPH NODES (785.6) Unclassified (20 sources) Physical exam, routine (V70.0) Unclassified (20 sources) Influenza vaccination declined; Translations: [Influenza vaccination declined (Renamed from Refused influenza vaccine)] Resolved: 07-14-2017 07-14-2017 Unclassified (20 sources) Abnormal blood finding; Translations: [Hematopoietic system finding] Resolved: 07-14-2017 07-14-2017 Unclassified (20 sources) Elevated cortisol level Unclassified (20 sources) Body mass index (BMI) exceeds 25 Unclassified (20 sources) Postmenopausal Unclassified (20 sources) Annual Medicare Phyiscal WITHOUT abnormal findings (Renamed from Encounter for general adult medical examination without abnormal findings) Unclassified (20 sources) Elevated AST (SGOT) Unclassified (20 sources) Fibrocystic breast disease Unclassified (20 sources) Unspecified Diagnosis 09-10-2018 Unclassified (20 sources) Elevated blood pressure reading Unclassified (20 sources) Skin rash Unclassified (20 sources) Dermatitis, eczematoid Unclassified (20 sources) Screening for breast cancer Unclassified (20 sources) Abnormal TSH Unclassified (17 sources) Copper deficiency Unclassified (10 sources) BPV (benign positional vertigo), bilateral Unclassified (6 sources) Ear ache Unclassified (5 sources) Vaccine counseling Urinary tract infections (2 sources) Urinary tract infections Viral infection (20 sources) Disease caused by 2019-nCoV Results Test Name Value Interpretation Reference Range Facility [facility] 10-31-2024 CNOV Office Visit ([place] ) ----- BHARATI HILLIARD ([id number]) 1940 F [place] Date Time Provider Department 10/31/24 1:20 PM LISSETTE CURIEL During your visit today, we recorded the following information about you: Pulse Blood pressure Weight 82/minute 187/75 46.9 kg Lissette Curiel MD 10/31/2024 1:56 PM Signed [facility] Cardiology ([facility]) [address] [id number] OUTPATIENT VISIT DATE 10/31/2024 PRIMARY CARE PHYSICIAN: Cira Ku DO ([facility]) [address] [place] [address] HISTORY OF PRESENT ILLNESS: Ms. Hilliard is a 84 year old woman with a history of Takotsubo cardiomyopathy and labile hypertension presents for routine follow-up. The patient experienced her most recent episode of Takotsubo cardiomyopathy on October 11, following a fall down the stairs. She sustained a head injury and was admitted to the hospital, where she was informed that her cardiac enzymes initially measured 10 and subsequently increased to the thousands. She reports that no one at the hospital mentioned atrial fibrillation (AFib) during her stay. However, during a visit with Dr. Alvarenga last Thursday, she was told she was in AFib based on a rhythm strip. She presents this strip today for review. She expresses concern about her recurrent episodes of Takotsubo cardiomyopathy, noting that she experiences these episodes in response to stress or trauma. She describes a pattern where any significant stressor, such as a fall or receiving bad news, triggers an episode. She reports difficulty managing stress despite engaging in regular exercise and yoga, with over 1,000 visits to [facility], attending five days a week. She maintains a healthy diet. She reports that her resting heart rate is typically between 114-116 bpm. She takes half of a metoprolol tablet daily, which she recently started taking in the morning with breakfast instead of at night. She has a history of IBS, which has been well-controlled recently. She reports a known history of hepatomegaly and consistently elevated liver enzymes. She denies alcohol consumption. She has a known allergy to Demerol, which caused syncope in the past, and reports a rash with a previous antibiotic, Colbax. She is currently taking multiple supplements, including turmeric and magnesium, under the guidance of Dr. Alvarenga and a local chiropractor. She expresses concern about the potential liver effects of some supplements, given her history of elevated liver enzymes. She avoids aspirin due to a family history of bleeding ulcers in her father. PAST MEDICAL HISTORY Diagnosis Date Anxiety state, unspecified Coronary artery disease Diarrhea Diffuse cystic mastopathy fibercystic beast disease Endometrial cancer (HCC) 04/30/2016 Heart attack (HCC) 11/16/2020 Hypertension Hypothyroidism Irritable bowel syndrome Loss of weight Other psoriasis PMH - PAST MEDICAL HISTORY OF vitamin B12 deficiency PMH - PAST MEDICAL HISTORY OF 07/2007 right ovarian cyst removed, benign PMH - PAST MEDICAL HISTORY OF 08/2004 heart problems, [place] Solitary cyst of breast SVT (supraventricular tachycardia) ([facility]) 08/08/2010 Unspecified cataract x2 Unspecified congenital anomaly of heart mvp PAST SURGICAL HISTORY Procedure Laterality Date APPENDECTOMY 07/25/2007 DELIVERY ONLY 02/24/1976 , low transverse COLONOSCOPY FLX DX W/COLLJ SPEC WHEN PFRMD Colonoscopy x 2 COLONOSCOPY FLX DX W/COLLJ SPEC WHEN PFRMD 09/14/2012 Colonoscopy PAST SURGICAL HISTORY OF cyst frm breast left, benign PAST SURGICAL HISTORY OF 07/25/2007 oophorectomy bilateral REMV CATARACT EXTRACAP,INSERT LENS Bilateral 04/23 and 05/07 SOCIAL HISTORY Social History Tobacco Use Smoking status: Never Smokeless tobacco: Never Vaping Use Vaping status: Never Used Substance Use Topics Alcohol use: No Drug use: No FAMILY HISTORY Problem Relation Age of Onset Colon Cancer Mother chemo and radiation Coronary Artery Disease Mother Hypertension Mother Prostate Cancer Father Coronary Artery Disease Father age 90 of lung disease Coronary Artery Disease Brother asthma other (crohns disease) Daughter ALLERGIES: ALLERGIES Allergen Reactions Cobex Other: See Comments Face and tongue swelled Demerol [Meperidine* Other: See Comments sensitive to this Erthromycin [Erythr* Intolerance irritable bowel, nausea Iodinated Contrast * Rash Macrobid [Nitrofura* Other: See Comments irregular HR, black spots in eyes, and diaphoresis Penicillins Rash No reaction to amoxacillin. Steroids [Corticost* Shortness of Breath, Other: See Comments Throat closed up with cortisone cream Sulfa (Sulfonamide * Ra (more content not included)... Normal [facility] Basic Metabolic Profile (BMP )on 10-20-2024 BUN Normal 4-19 [facility] Comment on above: Result Comment: Canc elled via OM: Order cancelled - Patient discharged Performed By: #### L 100.0100, L500.2500 #### [facility] [address] [facility] [address] BUN/CRE Normal 10-20 [facility] Comment on above: Result Comment: Canc elled via OM: Order cancelled - Patient discharged Performed By: #### L 100.0100, L500.2500 #### [facility] [address] [facility] [address] Calcium Normal 7.6-11.0 [facility] Comment on above: Result Comment: Canc elled via OM: Order cancelled - Patient discharged Performed By: #### L 100.0100, L500.2500 #### [facility] [address] [facility] [address] CL Normal 98-108 [facility] Comment on above: Result Comment: Canc elled via OM: Order cancelled - Patient discharged Performed By: #### L 100.0100, L500.2500 #### [facility] [address] [facility] [address] CO2 Normal 21.0-32.0 [facility] Comment on above: Result Comment: Canc elled via OM: Order cancelled - Patient discharged Performed By: #### L 100.0100, L500.2500 #### [facility] [address] [place], [address] CREAT,SERUM Normal 0.70-1.20 [facility] Comment on above: Result Comment: Canc elled via OM: Order cancelled - Patient discharged Performed By: #### L 100.0100, L500.2500 #### [facility] [address] [place], [address] eGFR Normal >60 [facility] Comment on above: Result Comment: Canc elled via OM: Order cancelled - Patient discharged Performed By: #### L 100.0100, L500.2500 #### [facility] [address] [place], [address] GAP Normal 5-15 [facility] Comment on above: Result Comment: Canc elled via OM: Order cancelled - Patient discharged Performed By: #### L 100.0100, L500.2500 #### [facility] [address] [place], [address] GLU Normal 70-99 [facility] Comment on above: Result Comment: Canc elled via OM: Order cancelled - Patient discharged Performed By: #### L 100.0100, L500.2500 #### [facility] [address] [place], [address] Potassium Normal 3.3-5.1 [facility] Comment on above: Result Comment: Canc elled via OM: Order cancelled - Patient discharged Performed By: #### L 100.0100, L500.2500 #### [facility] [address] [place], [address] Basic Metabolic Profile (BMP) Normal 133-145 [facility] Comment on above: Result Comment: Canc elled via OM: Order cancelled - Patient discharged Performed By: #### L 100.0100, L500.2500 #### [facility] [address] [place], [address] CBC W/Diff, Automatedon 08-2 Absolute Neut Normal 2.0-7.7 [facility] Comment on above: Result Comment: Canc elled via OM: Order cancelled - Patient discharged Performed By: #### L 100.0100, L500.2500 #### [facility] [address] [place], [address] HCT Normal 37-47 [facility] Comment on above: Result Comment: Canc elled via OM: Order cancelled - Patient discharged Performed By: #### L 100.0100, L500.2500 #### [facility] [address] [place], [address] HGB Normal 12.0-15.0 [facility] Comment on above: Result Comment: Canc elled via OM: Order cancelled - Patient discharged Performed By: #### L 100.0100, L500.2500 #### [facility] [address] [place], [address] MCH Normal 27.0-32.0 [facility] Comment on above: Result Comment: Canc elled via OM: Order cancelled - Patient discharged Performed By: #### L 100.0100, L500.2500 #### [facility] [address] [place], [address] MCHC Normal 32-36 [facility] Comment on above: Result Comment: Canc elled via OM: Order cancelled - Patient discharged Performed By: #### L 100.0100, L500.2500 #### [facility] [address] [place], [address] MCV Normal 81-99 [facility] Comment on above: Result Comment: Canc elled via OM: Order cancelled - Patient discharged Performed By: #### L 100.0100, L500.2500 #### [facility] [address] [place], [address] NEUT% Normal 47-70 [facility] Comment on above: Result Comment: Canc elled via OM: Order cancelled - Patient discharged Performed By: #### L 100.0100, L500.2500 #### [facility] [address] [place], [address] PLT Normal 150-450 [facility] Comment on above: Result Comment: Canc elled via OM: Order cancelled - Patient discharged Performed By: #### L 100.0100, L500.2500 #### [facility] [address] [place], [address] RBC Normal 4.2-5.4 [facility] Comment on above: Result Comment: Canc elled via OM: Order cancelled - Patient discharged Performed By: #### L 100.0100, L500.2500 #### [facility] [address] [place], [address] RDW CV Normal 11.6-14.6 [facility] Comment on above: Result Comment: Canc elled via OM: Order cancelled - Patient discharged Performed By: #### L 100.0100, L500.2500 #### [facility] [address] [place], [address] RDW SD Normal 35.1-43.9 [facility] Comment on above: Result Comment: Canc elled via OM: Order cancelled - Patient discharged Performed By: #### L 100.0100, L500.2500 #### [facility] [address] [place], [address] WBC Normal 4.4-11.0 [facility] Comment on above: Result Comment: Canc elled via OM: Order cancelled - Patient discharged Performed By: #### L 100.0100, L500.2500 #### [facility] [address] [place], [address] Basic Metabolic Profile (BMP )on 10-19-2024 BUN Normal 4-19 [facility] Comment on above: Result Comment: Canc elled via OM: Order cancelled - Patient discharged Performed By: #### L 100.0100, L500.2500 #### [facility] [address] [place], [address] BUN/CRE Normal 10-20 [facility] Comment on above: Result Comment: Canc elled via OM: Order cancelled - Patient discharged Performed By: #### L 100.0100, L500.2500 #### [facility] [address] [place], [address] Calcium Normal 7.6-11.0 [facility] Comment on above: Result Comment: Canc elled via OM: Order cancelled - Patient discharged Performed By: #### L 100.0100, L500.2500 #### [facility] [address] [place], [address] CL Normal 98-108 [facility] Comment on above: Result Comment: Canc elled via OM: Order cancelled - Patient discharged Performed By: #### L 100.0100, L500.2500 #### [facility] [address] [place], [address] CO2 Normal 21.0-32.0 [facility] Comment on above: Result Comment: Canc elled via OM: Order cancelled - Patient discharged Performed By: #### L 100.0100, L500.2500 #### [facility] [address] [place], [address] CREAT,SERUM Normal 0.70-1.20 [facility] Comment on above: Result Comment: Canc elled via OM: Order cancelled - Patient discharged Performed By: #### L 100.0100, L500.2500 #### [facility] [address] [place], [address] eGFR Normal >60 [facility] Comment on above: Result Comment: Canc elled via OM: Order cancelled - Patient discharged Performed By: #### L 100.0100, L500.2500 #### [facility] [address] [place], [address] GAP Normal 5-15 [facility] Comment on above: Result Comment: Canc elled via OM: Order cancelled - Patient discharged Performed By: #### L 100.0100, L500.2500 #### [facility] [address] [place], [address] GLU Normal 70-99 [facility] Comment on above: Result Comment: Canc elled via OM: Order cancelled - Patient discharged Performed By: #### L 100.0100, L500.2500 #### [facility] [address] [place], [address] Potassium Normal 3.3-5.1 [facility] Comment on above: Result Comment: Canc elled via OM: Order cancelled - Patient discharged Performed By: #### L 100.0100, L500.2500 #### [facility] [address] [place], [address] Basic Metabolic Profile (BMP) Normal 133-145 [facility] Comment on above: Result Comment: Canc elled via OM: Order cancelled - Patient discharged Performed By: #### L 100.0100, L500.2500 #### [facility] [address] [place], [address] CBC W/Diff, Automatedon 08-2 Absolute Neut Normal 2.0-7.7 [facility] Comment on above: Result Comment: Canc elled via OM: Order cancelled - Patient discharged Performed By: #### L 100.0100, L500.2500 #### [facility] [address] [place], [address] HCT Normal 37-47 [facility] Comment on above: Result Comment: Canc elled via OM: Order cancelled - Patient discharged Performed By: #### L 100.0100, L500.2500 #### [facility] [address] [place], [address] HGB Normal 12.0-15.0 [facility] Comment on above: Result Comment: Canc elled via OM: Order cancelled - Patient discharged Performed By: #### L 100.0100, L500.2500 #### [facility] [address] [place], [address] MCH Normal 27.0-32.0 [facility] Comment on above: Result Comment: Canc elled via OM: Order cancelled - Patient discharged Performed By: #### L 100.0100, L500.2500 #### [facility] [address] [place], [address] MCHC Normal 32-36 [facility] Comment on above: Result Comment: Canc elled via OM: Order cancelled - Patient discharged Performed By: #### L 100.0100, L500.2500 #### [facility] [address] [place], [address] MCV Normal 81-99 [facility] Comment on above: Result Comment: Canc elled via OM: Order cancelled - Patient discharged Performed By: #### L 100.0100, L500.2500 #### [facility] [address] [place], [address] NEUT% Normal 47-70 [facility] Comment on above: Result Comment: Canc elled via OM: Order cancelled - Patient discharged Performed By: #### L 100.0100, L500.2500 #### [facility] [address] [place], [address] PLT Normal 150-450 [facility] Comment on above: Result Comment: Canc elled via OM: Order cancelled - Patient discharged Performed By: #### L 100.0100, L500.2500 #### [facility] [address] [place], [address] RBC Normal 4.2-5.4 [facility] Comment on above: Result Comment: Canc elled via OM: Order cancelled - Patient discharged Performed By: #### L 100.0100, L500.2500 #### [facility] [address] [place], [address] RDW CV Normal 11.6-14.6 [facility] Comment on above: Result Comment: Canc elled via OM: Order cancelled - Patient discharged Performed By: #### L 100.0100, L500.2500 #### [facility] [address] [place], [address] RDW SD Normal 35.1-43.9 [facility] Comment on above: Result Comment: Canc elled via OM: Order cancelled - Patient discharged Performed By: #### L 100.0100, L500.2500 #### [facility] [address] [place], [address] WBC Normal 4.4-11.0 [facility] Comment on above: Result Comment: Canc elled via OM: Order cancelled - Patient discharged Performed By: #### L 100.0100, L500.2500 #### [facility] [address] [place], [address] Basic Metabolic Profile (BMP )on 10-18-2024 BUN Normal 4-19 [facility] Comment on above: Result Comment: Canc elled via OM: Order cancelled - Patient discharged Performed By: #### L 501.4021, L100.0100, L500.2500 #### [facility] [address] [place], [address] BUN/CRE Normal 10-20 [facility] Comment on above: Result Comment: Canc elled via OM: Order cancelled - Patient discharged Performed By: #### L 501.4021, L100.0100, L500.2500 #### [facility] [address] [place], [address] Calcium Normal 7.6-11.0 [facility] Comment on above: Result Comment: Canc elled via OM: Order cancelled - Patient discharged Performed By: #### L 501.4021, L100.0100, L500.2500 #### [facility] [address] [place], [address] CL Normal 98-108 [facility] Comment on above: Result Comment: Canc elled via OM: Order cancelled - Patient discharged Performed By: #### L 501.4021, L100.0100, L500.2500 #### [facility] [address] [place], [address] CO2 Normal 21.0-32.0 [facility] Comment on above: Result Comment: Canc elled via OM: Order cancelled - Patient discharged Performed By: #### L 501.4021, L100.0100, L500.2500 #### [facility] [address] [place], [address] CREAT,SERUM Normal 0.70-1.20 [facility] Comment on above: Result Comment: Canc elled via OM: Order cancelled - Patient discharged Performed By: #### L 501.4021, L100.0100, L500.2500 #### [facility] [address] [place], [address] eGFR Normal >60 [facility] Comment on above: Result Comment: Canc elled via OM: Order cancelled - Patient discharged Performed By: #### L 501.4021, L100.0100, L500.2500 #### [facility] [address] [place], [address] GAP Normal 5-15 [facility] Comment on above: Result Comment: Canc elled via OM: Order cancelled - Patient discharged Performed By: #### L 501.4021, L100.0100, L500.2500 #### [facility] [address] [place], [address] GLU Normal 70-99 [facility] Comment on above: Result Comment: Canc elled via OM: Order cancelled - Patient discharged Performed By: #### L 501.4021, L100.0100, L500.2500 #### [facility] [address] [place], [address] Potassium Normal 3.3-5.1 [facility] Comment on above: Result Comment: Canc elled via OM: Order cancelled - Patient discharged Performed By: #### L 501.4021, L100.0100, L500.2500 #### [facility] [address] [place], [address] Basic Metabolic Profile (BMP) Normal 133-145 [facility] Comment on above: Result Comment: Canc elled via OM: Order cancelled - Patient discharged Performed By: #### L 501.4021, L100.0100, L500.2500 #### [facility] [address] [place], [address] CBC W/Diff, Automatedon 08-2 Absolute Neut Normal 2.0-7.7 [facility] Comment on above: Result Comment: Canc elled via OM: Order cancelled - Patient discharged Performed By: #### L 501.4021, L100.0100, L500.2500 #### [facility] [address] [place], [address] HCT Normal 37-47 [facility] Comment on above: Result Comment: Canc elled via OM: Order cancelled - Patient discharged Performed By: #### L 501.4021, L100.0100, L500.2500 #### [facility] [address] [place], [address] HGB Normal 12.0-15.0 [facility] Comment on above: Result Comment: Canc elled via OM: Order cancelled - Patient discharged Performed By: #### L 501.4021, L100.0100, L500.2500 #### [facility] [address] [place], [address] MCH Normal 27.0-32.0 [facility] Comment on above: Result Comment: Canc elled via OM: Order cancelled - Patient discharged Performed By: #### L 501.4021, L100.0100, L500.2500 #### [facility] [address] [place], [address] MCHC Normal 32-36 [facility] Comment on above: Result Comment: Canc elled via OM: Order cancelled - Patient discharged Performed By: #### L 501.4021, L100.0100, L500.2500 #### [facility] [address] [place], [address] MCV Normal 81-99 [facility] Comment on above: Result Comment: Canc elled via OM: Order cancelled - Patient discharged Performed By: #### L 501.4021, L100.0100, L500.2500 #### [facility] [address] [place], [address] NEUT% Normal 47-70 [facility] Comment on above: Result Comment: Canc elled via OM: Order cancelled - Patient discharged Performed By: #### L 501.4021, L100.0100, L500.2500 #### [facility] [address] [place], [address] PLT Normal 150-450 [facility] Comment on above: Result Comment: Canc elled via OM: Order cancelled - Patient discharged Performed By: #### L 501.4021, L100.0100, L500.2500 #### [facility] [address] [place], [address] RBC Normal 4.2-5.4 [facility] Comment on above: Result Comment: Canc elled via OM: Order cancelled - Patient discharged Performed By: #### L 501.4021, L100.0100, L500.2500 #### [facility] [address] [place], [address] RDW CV Normal 11.6-14.6 [facility] Comment on above: Result Comment: Canc elled via OM: Order cancelled - Patient discharged Performed By: #### L 501.4021, L100.0100, L500.2500 #### [facility] [address] [place], [address] RDW SD Normal 35.1-43.9 [facility] Comment on above: Result Comment: Canc elled via OM: Order cancelled - Patient discharged Performed By: #### L 501.4021, L100.0100, L500.2500 #### [facility] [address] [place], [address] WBC Normal 4.4-11.0 [facility] Comment on above: Result Comment: Canc elled via OM: Order cancelled - Patient discharged Performed By: #### L 501.4021, L100.0100, L500.2500 #### [facility] [address] [place], [address] Basic Metabolic Profile (BMP )on 10-17-2024 BUN Normal 4-19 [facility] Comment on above: Result Comment: Canc elled via OM: Order cancelled - Patient discharged Performed By: #### L 501.4021, L100.0100, L500.2500 #### [facility] [address] [place], [address] BUN/CRE Normal 10-20 [facility] Comment on above: Result Comment: Canc elled via OM: Order cancelled - Patient discharged Performed By: #### L 501.4021, L100.0100, L500.2500 #### [facility] [address] [place], [address] Calcium Normal 7.6-11.0 [facility] Comment on above: Result Comment: Canc elled via OM: Order cancelled - Patient discharged Performed By: #### L 501.4021, L100.0100, L500.2500 #### [facility] [address] [place], [address] CL Normal 98-108 [facility] Comment on above: Result Comment: Canc elled via OM: Order cancelled - Patient discharged Performed By: #### L 501.4021, L100.0100, L500.2500 #### [facility] [address] [place], [address] CO2 Normal 21.0-32.0 [facility] Comment on above: Result Comment: Canc elled via OM: Order cancelled - Patient discharged Performed By: #### L 501.4021, L100.0100, L500.2500 #### [facility] [address] [place], [address] CREAT,SERUM Normal 0.70-1.20 [facility] Comment on above: Result Comment: Canc elled via OM: Order cancelled - Patient discharged Performed By: #### L 501.4021, L100.0100, L500.2500 #### [facility] [address] [place], [address] eGFR Normal >60 [facility] Comment on above: Result Comment: Canc elled via OM: Order cancelled - Patient discharged Performed By: #### L 501.4021, L100.0100, L500.2500 #### [facility] [address] [place], [address] GAP Normal 5-15 [facility] Comment on above: Result Comment: Canc elled via OM: Order cancelled - Patient discharged Performed By: #### L 501.4021, L100.0100, L500.2500 #### [facility] [address] [place], [address] GLU Normal 70-99 [facility] Comment on above: Result Comment: Canc elled via OM: Order cancelled - Patient discharged Performed By: #### L 501.4021, L100.0100, L500.2500 #### [facility] [address] [place], [address] Potassium Normal 3.3-5.1 [facility] Comment on above: Result Comment: Canc elled via OM: Order cancelled - Patient discharged Performed By: #### L 501.4021, L100.0100, L500.2500 #### [facility] [address] [place], [address] Basic Metabolic Profile (BMP) Normal 133-145 [facility] Comment on above: Result Comment: Canc elled via OM: Order cancelled - Patient discharged Performed By: #### L 501.4021, L100.0100, L500.2500 #### [facility] [address] [place], [address] CBC W/Diff, Automatedon 08-2 -2024 Absolute Neut Normal 2.0-7.7 [facility] Comment on above: Result Comment: Canc elled via OM: Order cancelled - Patient discharged Performed By: #### L 501.4021, L100.0100, L500.2500 #### [facility] [address] [place], [address] HCT Normal 37-47 [facility] Comment on above: Result Comment: Canc elled via OM: Order cancelled - Patient discharged Performed By: #### L 501.4021, L100.0100, L500.2500 #### [facility] [address] [place], [address] HGB Normal 12.0-15.0 [facility] Comment on above: Result Comment: Canc elled via OM: Order cancelled - Patient discharged Performed By: #### L 501.4021, L100.0100, L500.2500 #### [facility] [address] [place], [address] MCH Normal 27.0-32.0 [facility] Comment on above: Result Comment: Canc elled via OM: Order cancelled - Patient discharged Performed By: #### L 501.4021, L100.0100, L500.2500 #### [facility] [address] [place], [address] MCHC Normal 32-36 [facility] Comment on above: Result Comment: Canc elled via OM: Order cancelled - Patient discharged Performed By: #### L 501.4021, L100.0100, L500.2500 #### [facility] [address] [place], [address] MCV Normal 81-99 [facility] Comment on above: Result Comment: Canc elled via OM: Order cancelled - Patient discharged Performed By: #### L 501.4021, L100.0100, L500.2500 #### [facility] [address] [place], [address] NEUT% Normal 47-70 [facility] Comment on above: Result Comment: Canc elled via OM: Order cancelled - Patient discharged Performed By: #### L 501.4021, L100.0100, L500.2500 #### [facility] [address] [place], [address] PLT Normal 150-450 [facility] Comment on above: Result Comment: Canc elled via OM: Order cancelled - Patient discharged Performed By: #### L 501.4021, L100.0100, L500.2500 #### [facility] [address] [place], [address] RBC Normal 4.2-5.4 [facility] Comment on above: Result Comment: Canc elled via OM: Order cancelled - Patient discharged Performed By: #### L 501.4021, L100.0100, L500.2500 #### [facility] [address] [place], [address] RDW CV Normal 11.6-14.6 [facility] Comment on above: Result Comment: Canc elled via OM: Order cancelled - Patient discharged Performed By: #### L 501.4021, L100.0100, L500.2500 #### [facility] [address] [place], [address] RDW SD Normal 35.1-43.9 [facility] Comment on above: Result Comment: Canc elled via OM: Order cancelled - Patient discharged Performed By: #### L 501.4021, L100.0100, L500.2500 #### [facility] [address] [place], [address] WBC Normal 4.4-11.0 [facility] Comment on above: Result Comment: Canc elled via OM: Order cancelled - Patient discharged Performed By: #### L 501.4021, L100.0100, L500.2500 #### [facility] [address] [place], [address] Basic Metabolic Profile (BMP )on 10-16-2024 BUN Normal 4-19 [facility] Comment on above: Result Comment: Canc elled via OM: Order cancelled - Patient discharged Performed By: #### L 100.0100, L500.2500 #### [facility] [address] [place], [address] BUN/CRE Normal 10-20 [facility] Comment on above: Result Comment: Canc elled via OM: Order cancelled - Patient discharged Performed By: #### L 100.0100, L500.2500 #### [facility] [address] [place], [address] Calcium Normal 7.6-11.0 [facility] Comment on above: Result Comment: Canc elled via OM: Order cancelled - Patient discharged Performed By: #### L 100.0100, L500.2500 #### [facility] [address] [place], [address] CL Normal 98-108 [facility] Comment on above: Result Comment: Canc elled via OM: Order cancelled - Patient discharged Performed By: #### L 100.0100, L500.2500 #### [facility] [address] [place], [address] CO2 Normal 21.0-32.0 [facility] Comment on above: Result Comment: Canc elled via OM: Order cancelled - Patient discharged Performed By: #### L 100.0100, L500.2500 #### [facility] [address] [place], [address] CREAT,SERUM Normal 0.70-1.20 [facility] Comment on above: Result Comment: Canc elled via OM: Order cancelled - Patient discharged Performed By: #### L 100.0100, L500.2500 #### [facility] [address] [place], [address] eGFR Normal >60 [facility] Comment on above: Result Comment: Canc elled via OM: Order cancelled - Patient discharged Performed By: #### L 100.0100, L500.2500 #### [facility] [address] [place], [address] GAP Normal 5-15 [facility] Comment on above: Result Comment: Canc elled via OM: Order cancelled - Patient discharged Performed By: #### L 100.0100, L500.2500 #### [facility] [address] [place], [address] GLU Normal 70-99 [facility] Comment on above: Result Comment: Canc elled via OM: Order cancelled - Patient discharged Performed By: #### L 100.0100, L500.2500 #### [facility] [address] [place], [address] Potassium Normal 3.3-5.1 [facility] Comment on above: Result Comment: Canc elled via OM: Order cancelled - Patient discharged Performed By: #### L 100.0100, L500.2500 #### [facility] [address] [place], [address] Basic Metabolic Profile (BMP) Normal 133-145 [facility] Comment on above: Result Comment: Canc elled via OM: Order cancelled - Patient discharged Performed By: #### L 100.0100, L500.2500 #### [facility] [address] [place], [address] CBC W/Diff, Automatedon 08-2 Absolute Neut Normal 2.0-7.7 [facility] Comment on above: Result Comment: Canc elled via OM: Order cancelled - Patient discharged Performed By: #### L 100.0100, L500.2500 #### [facility] [address] [place], [address] HCT Normal 37-47 [facility] Comment on above: Result Comment: Canc elled via OM: Order cancelled - Patient discharged Performed By: #### L 100.0100, L500.2500 #### [facility] [address] [place], [address] HGB Normal 12.0-15.0 [facility] Comment on above: Result Comment: Canc elled via OM: Order cancelled - Patient discharged Performed By: #### L 100.0100, L500.2500 #### [facility] [address] [place], [address] MCH Normal 27.0-32.0 [facility] Comment on above: Result Comment: Canc elled via OM: Order cancelled - Patient discharged Performed By: #### L 100.0100, L500.2500 #### [facility] [address] [place], [address] MCHC Normal 32-36 [facility] Comment on above: Result Comment: Canc elled via OM: Order cancelled - Patient discharged Performed By: #### L 100.0100, L500.2500 #### [facility] [address] [place], [address] MCV Normal 81-99 [facility] Comment on above: Result Comment: Canc elled via OM: Order cancelled - Patient discharged Performed By: #### L 100.0100, L500.2500 #### [facility] [address] [place], [address] NEUT% Normal 47-70 [facility] Comment on above: Result Comment: Canc elled via OM: Order cancelled - Patient discharged Performed By: #### L 100.0100, L500.2500 #### [facility] [address] [place], [address] PLT Normal 150-450 [facility] Comment on above: Result Comment: Canc elled via OM: Order cancelled - Patient discharged Performed By: #### L 100.0100, L500.2500 #### [facility] [address] [place], [address] RBC Normal 4.2-5.4 [facility] Comment on above: Result Comment: Canc elled via OM: Order cancelled - Patient discharged Performed By: #### L 100.0100, L500.2500 #### [facility] [address] [place], [address] RDW CV Normal 11.6-14.6 [facility] Comment on above: Result Comment: Canc elled via OM: Order cancelled - Patient discharged Performed By: #### L 100.0100, L500.2500 #### [facility] [address] [place], [address] RDW SD Normal 35.1-43.9 [facility] Comment on above: Result Comment: Canc elled via OM: Order cancelled - Patient discharged Performed By: #### L 100.0100, L500.2500 #### [facility] [address] [place], [address] WBC Normal 4.4-11.0 [facility] Comment on above: Result Comment: Canc elled via OM: Order cancelled - Patient discharged Performed By: #### L 100.0100, L500.2500 #### [facility] [address] [place], [address] Basic Metabolic Profile (BMP )on 10-15-2024 BUN Normal 4-19 [facility] Comment on above: Result Comment: Canc elled via OM: Order cancelled - Patient discharged Performed By: #### L 501.4021, L100.0100, L500.2500 #### [facility] [address] [place], [address] BUN/CRE Normal 10-20 [facility] Comment on above: Result Comment: Canc elled via OM: Order cancelled - Patient discharged Performed By: #### L 501.4021, L100.0100, L500.2500 #### [facility] [address] [place], [address] Calcium Normal 7.6-11.0 [facility] Comment on above: Result Comment: Canc elled via OM: Order cancelled - Patient discharged Performed By: #### L 501.4021, L100.0100, L500.2500 #### [facility] [address] [place], [address] CL Normal 98-108 [facility] Comment on above: Result Comment: Canc elled via OM: Order cancelled - Patient discharged Performed By: #### L 501.4021, L100.0100, L500.2500 #### [facility] [address] [place], [address] CO2 Normal 21.0-32.0 [facility] Comment on above: Result Comment: Canc elled via OM: Order cancelled - Patient discharged Performed By: #### L 501.4021, L100.0100, L500.2500 #### [facility] [address] [place], [address] CREAT,SERUM Normal 0.70-1.20 [facility] Comment on above: Result Comment: Canc elled via OM: Order cancelled - Patient discharged Performed By: #### L 501.4021, L100.0100, L500.2500 #### [facility] [address] [place], [address] eGFR Normal >60 [facility] Comment on above: Result Comment: Canc elled via OM: Order cancelled - Patient discharged Performed By: #### L 501.4021, L100.0100, L500.2500 #### [facility] [address] [place], [address] GAP Normal 5-15 [facility] Comment on above: Result Comment: Canc elled via OM: Order cancelled - Patient discharged Performed By: #### L 501.4021, L100.0100, L500.2500 #### [facility] [address] [place], [address] GLU Normal 70-99 [facility] Comment on above: Result Comment: Canc elled via OM: Order cancelled - Patient discharged Performed By: #### L 501.4021, L100.0100, L500.2500 #### [facility] [address] [place], [address] Potassium Normal 3.3-5.1 [facility] Comment on above: Result Comment: Canc elled via OM: Order cancelled - Patient discharged Performed By: #### L 501.4021, L100.0100, L500.2500 #### [facility] [address] [place], [address] Basic Metabolic Profile (BMP) Normal 133-145 [facility] Comment on above: Result Comment: Canc elled via OM: Order cancelled - Patient discharged Performed By: #### L 501.4021, L100.0100, L500.2500 #### [facility] [address] [place], [address] CBC W/Diff, Automatedon 09-24 Absolute Neut Normal 2.0-7.7 [facility] Comment on above: Result Comment: Canc elled via OM: Order cancelled - Patient discharged Performed By: #### L 501.4021, L100.0100, L500.2500 #### [facility] [address] [place], [address] HCT Normal 37-47 [facility] Comment on above: Result Comment: Canc elled via OM: Order cancelled - Patient discharged Performed By: #### L 501.4021, L100.0100, L500.2500 #### [facility] [address] [place], [address] HGB Normal 12.0-15.0 [facility] Comment on above: Result Comment: Canc elled via OM: Order cancelled - Patient discharged Performed By: #### L 501.4021, L100.0100, L500.2500 #### [facility] [address] [place], [address] MCH Normal 27.0-32.0 [facility] Comment on above: Result Comment: Canc elled via OM: Order cancelled - Patient discharged Performed By: #### L 501.4021, L100.0100, L500.2500 #### [facility] [address] [place], [address] MCHC Normal 32-36 [facility] Comment on above: Result Comment: Canc elled via OM: Order cancelled - Patient discharged Performed By: #### L 501.4021, L100.0100, L500.2500 #### [facility] [address] [place], [address] MCV Normal 81-99 [facility] Comment on above: Result Comment: Canc elled via OM: Order cancelled - Patient discharged Performed By: #### L 501.4021, L100.0100, L500.2500 #### [facility] [address] [place], [address] NEUT% Normal 47-70 [facility] Comment on above: Result Comment: Canc elled via OM: Order cancelled - Patient discharged Performed By: #### L 501.4021, L100.0100, L500.2500 #### [facility] [address] [place], [address] PLT Normal 150-450 [facility] Comment on above: Result Comment: Canc elled via OM: Order cancelled - Patient discharged Performed By: #### L 501.4021, L100.0100, L500.2500 #### [facility] [address] [place], [address] RBC Normal 4.2-5.4 [facility] Comment on above: Result Comment: Canc elled via OM: Order cancelled - Patient discharged Performed By: #### L 501.4021, L100.0100, L500.2500 #### [facility] [address] [place], [address] RDW CV Normal 11.6-14.6 [facility] Comment on above: Result Comment: Canc elled via OM: Order cancelled - Patient discharged Performed By: #### L 501.4021, L100.0100, L500.2500 #### [facility] [address] [place], [address] RDW SD Normal 35.1-43.9 [facility] Comment on above: Result Comment: Canc elled via OM: Order cancelled - Patient discharged Performed By: #### L 501.4021, L100.0100, L500.2500 #### [facility] [address] [place], [address] WBC Normal 4.4-11.0 [facility] Comment on above: Result Comment: Canc elled via OM: Order cancelled - Patient discharged Performed By: #### L 501.4021, L100.0100, L500.2500 #### [facility] [address] [place], [address] Basic Metabolic Profile (BMP )on 10-14-2024 BUN Normal 4-19 [facility] Comment on above: Result Comment: Canc elled via OM: Order cancelled - Patient discharged Performed By: #### L 100.0100, L500.2500 #### [facility] [address] [place], [address] BUN/CRE Normal 10-20 [facility] Comment on above: Result Comment: Canc elled via OM: Order cancelled - Patient discharged Performed By: #### L 100.0100, L500.2500 #### [facility] [address] [place], [address] Calcium Normal 7.6-11.0 [facility] Comment on above: Result Comment: Canc elled via OM: Order cancelled - Patient discharged Performed By: #### L 100.0100, L500.2500 #### [facility] [address] [place], [address] CL Normal 98-108 [facility] Comment on above: Result Comment: Canc elled via OM: Order cancelled - Patient discharged Performed By: #### L 100.0100, L500.2500 #### [facility] [address] [place], [address] CO2 Normal 21.0-32.0 [facility] Comment on above: Result Comment: Canc elled via OM: Order cancelled - Patient discharged Performed By: #### L 100.0100, L500.2500 #### [facility] [address] [place], [address] CREAT,SERUM Normal 0.70-1.20 [facility] Comment on above: Result Comment: Canc elled via OM: Order cancelled - Patient discharged Performed By: #### L 100.0100, L500.2500 #### [facility] [address] [place], [address] eGFR Normal >60 [facility] Comment on above: Result Comment: Canc elled via OM: Order cancelled - Patient discharged Performed By: #### L 100.0100, L500.2500 #### [facility] [address] [place], [address] GAP Normal 5-15 [facility] Comment on above: Result Comment: Canc elled via OM: Order cancelled - Patient discharged Performed By: #### L 100.0100, L500.2500 #### [facility] [address] [place], [address] GLU Normal 70-99 [facility] Comment on above: Result Comment: Canc elled via OM: Order cancelled - Patient discharged Performed By: #### L 100.0100, L500.2500 #### [facility] [address] [place], [address] Potassium Normal 3.3-5.1 [facility] Comment on above: Result Comment: Canc elled via OM: Order cancelled - Patient discharged Performed By: #### L 100.0100, L500.2500 #### [facility] [address] [place], [address] Basic Metabolic Profile (BMP) Normal 133-145 [facility] Comment on above: Result Comment: Canc elled via OM: Order cancelled - Patient discharged Performed By: #### L 100.0100, L500.2500 #### [facility] [address] [place], [address] CBC W/Diff, Automatedon 08-2 Absolute Neut Normal 2.0-7.7 [facility] Comment on above: Result Comment: Canc elled via OM: Order cancelled - Patient discharged Performed By: #### L 100.0100, L500.2500 #### [facility] [address] [place], [address] HCT Normal 37-47 [facility] Comment on above: Result Comment: Canc elled via OM: Order cancelled - Patient discharged Performed By: #### L 100.0100, L500.2500 #### [facility] [address] [place], [address] HGB Normal 12.0-15.0 [facility] Comment on above: Result Comment: Canc elled via OM: Order cancelled - Patient discharged Performed By: #### L 100.0100, L500.2500 #### [facility] [address] [place], [address] MCH Normal 27.0-32.0 [facility] Comment on above: Result Comment: Canc elled via OM: Order cancelled - Patient discharged Performed By: #### L 100.0100, L500.2500 #### [facility] [address] [place], [address] MCHC Normal 32-36 [facility] Comment on above: Result Comment: Canc elled via OM: Order cancelled - Patient discharged Performed By: #### L 100.0100, L500.2500 #### [facility] [address] [place], [address] MCV Normal 81-99 [facility] Comment on above: Result Comment: Canc elled via OM: Order cancelled - Patient discharged Performed By: #### L 100.0100, L500.2500 #### [facility] [address] [place], [address] NEUT% Normal 47-70 [facility] Comment on above: Result Comment: Canc elled via OM: Order cancelled - Patient discharged Performed By: #### L 100.0100, L500.2500 #### [facility] [address] [place], [address] PLT Normal 150-450 [facility] Comment on above: Result Comment: Canc elled via OM: Order cancelled - Patient discharged Performed By: #### L 100.0100, L500.2500 #### [facility] [address] [place], [address] RBC Normal 4.2-5.4 [facility] Comment on above: Result Comment: Canc elled via OM: Order cancelled - Patient discharged Performed By: #### L 100.0100, L500.2500 #### [facility] [address] [place], [address] RDW CV Normal 11.6-14.6 [facility] Comment on above: Result Comment: Canc elled via OM: Order cancelled - Patient discharged Performed By: #### L 100.0100, L500.2500 #### [facility] [address] [place], [address] RDW SD Normal 35.1-43.9 [facility] Comment on above: Result Comment: Canc elled via OM: Order cancelled - Patient discharged Performed By: #### L 100.0100, L500.2500 #### [facility] [address] [place], [address] WBC Normal 4.4-11.0 [facility] Comment on above: Result Comment: Canc elled via OM: Order cancelled - Patient discharged Performed By: #### L 100.0100, L500.2500 #### [facility] [address] [place], [address] Basic Metabolic Profile (BMP )on 10-13-2024 BUN Normal 4-19 [facility] Comment on above: Result Comment: Canc elled via OM: Order cancelled - Patient discharged Performed By: #### L 500.2500, L100.0100 #### [facility] [address] [place], [address] BUN/CRE Normal 10-20 [facility] Comment on above: Result Comment: Canc elled via OM: Order cancelled - Patient discharged Performed By: #### L 500.2500, L100.0100 #### [facility] [address] [place], [address] Calcium Normal 7.6-11.0 [facility] Comment on above: Result Comment: Canc elled via OM: Order cancelled - Patient discharged Performed By: #### L 500.2500, L100.0100 #### [facility] [address] [place], [address] CL Normal 98-108 [facility] Comment on above: Result Comment: Canc elled via OM: Order cancelled - Patient discharged Performed By: #### L 500.2500, L100.0100 #### [facility] [address] [place], [address] CO2 Normal 21.0-32.0 [facility] Comment on above: Result Comment: Canc elled via OM: Order cancelled - Patient discharged Performed By: #### L 500.2500, L100.0100 #### [facility] [address] [place], [address] CREAT,SERUM Normal 0.70-1.20 [facility] Comment on above: Result Comment: Canc elled via OM: Order cancelled - Patient discharged Performed By: #### L 500.2500, L100.0100 #### [facility] [address] [place], [address] eGFR Normal >60 [facility] Comment on above: Result Comment: Canc elled via OM: Order cancelled - Patient discharged Performed By: #### L 500.2500, L100.0100 #### [facility] [address] [place], [address] GAP Normal 5-15 [facility] Comment on above: Result Comment: Canc elled via OM: Order cancelled - Patient discharged Performed By: #### L 500.2500, L100.0100 #### [facility] [address] [place], [address] GLU Normal 70-99 [facility] Comment on above: Result Comment: Canc elled via OM: Order cancelled - Patient discharged Performed By: #### L 500.2500, L100.0100 #### [facility] [address] [place], [address] Potassium Normal 3.3-5.1 [facility] Comment on above: Result Comment: Canc elled via OM: Order cancelled - Patient discharged Performed By: #### L 500.2500, L100.0100 #### [facility] [address] [place], [address] Basic Metabolic Profile (BMP) Normal 133-145 [facility] Comment on above: Result Comment: Canc elled via OM: Order cancelled - Patient discharged Performed By: #### L 500.2500, L100.0100 #### [facility] [address] [place], [address] CBC W/Diff, Automatedon 08-2 Absolute Neut Normal 2.0-7.7 [facility] Comment on above: Result Comment: Canc elled via OM: Order cancelled - Patient discharged Performed By: #### L 500.2500, L100.0100 #### [facility] [address] [place], [address] HCT Normal 37-47 [facility] Comment on above: Result Comment: Canc elled via OM: Order cancelled - Patient discharged Performed By: #### L 500.2500, L100.0100 #### [facility] [address] [place], [address] HGB Normal 12.0-15.0 [facility] Comment on above: Result Comment: Canc elled via OM: Order cancelled - Patient discharged Performed By: #### L 500.2500, L100.0100 #### [facility] [address] [place], [address] MCH Normal 27.0-32.0 [facility] Comment on above: Result Comment: Canc elled via OM: Order cancelled - Patient discharged Performed By: #### L 500.2500, L100.0100 #### [facility] [address] [place], [address] MCHC Normal 32-36 [facility] Comment on above: Result Comment: Canc elled via OM: Order cancelled - Patient discharged Performed By: #### L 500.2500, L100.0100 #### [facility] [address] [place], [address] MCV Normal 81-99 [facility] Comment on above: Result Comment: Canc elled via OM: Order cancelled - Patient discharged Performed By: #### L 500.2500, L100.0100 #### [facility] [address] [place], [address] NEUT% Normal 47-70 [facility] Comment on above: Result Comment: Canc elled via OM: Order cancelled - Patient discharged Performed By: #### L 500.2500, L100.0100 #### [facility] [address] [place], [address] PLT Normal 150-450 [facility] Comment on above: Result Comment: Canc elled via OM: Order cancelled - Patient discharged Performed By: #### L 500.2500, L100.0100 #### [facility] [address] [place], [address] RBC Normal 4.2-5.4 [facility] Comment on above: Result Comment: Canc elled via OM: Order cancelled - Patient discharged Performed By: #### L 500.2500, L100.0100 #### [facility] [address] [place], [address] RDW CV Normal 11.6-14.6 [facility] Comment on above: Result Comment: Canc elled via OM: Order cancelled - Patient discharged Performed By: #### L 500.2500, L100.0100 #### [facility] [address] [place], [address] RDW SD Normal 35.1-43.9 [facility] Comment on above: Result Comment: Canc elled via OM: Order cancelled - Patient discharged Performed By: #### L 500.2500, L100.0100 #### [facility] [address] [place], [address] WBC Normal 4.4-11.0 [facility] Comment on above: Result Comment: Canc elled via OM: Order cancelled - Patient discharged Performed By: #### L 500.2500, L100.0100 #### [facility] [address] [place], [address] Anion gap in Serum or Plasma Ordered By: Timothy Baird on 10-12-2024 Anion gap [Moles/Vol] 10 mmol/L 07-07 [facility] BUN/creatinine ratioOrdered By: Timothy Baird on 10-12-2024 Urea nitrogen/Creatinine [Mass ratio] 27.5 mg/mg High 12-12 [facility] Basic Metabolic Profile (BMP )on 10-12-2024 BUN/CRE 27.5 RATIO High 10-20 [facility] Comment on above: Performed By: #### L 500.2500, L500.4100, L100.0500 #### [facility] [address] [place], [address] Calcium [Mass/Vol] 9.0 mg/dL Normal 7.6-11.0 [facility] Comment on above: Performed By: #### L 500.2500, L500.4100, L100.0500 #### [facility] [address] [place], [address] Chloride [Moles/Vol] 95 mmol/L Low 98-108 [facility] Comment on above: Performed By: #### L 500.2500, L500.4100, L100.0500 #### [facility] [address] [place], [address] CO2 [Moles/Vol] 23.5 mmol/L Normal 21.0-32.0 [facility] Comment on above: Performed By: #### L 500.2500, L500.4100, L100.0500 #### [facility] [address] [place], [address] Creatinine [Mass/Vol] 0.73 mg/dL Normal 0.70-1.20 [facility] Comment on above: Performed By: #### L 500.2500, L500.4100, L100.0500 #### [facility] [address] [place], [address] ECRCL 38.44 ml/min Low 50-250 [facility] Comment on above: Performed By: #### L 500.2500, L500.4100, L100.0500 #### [facility] [address] [place], [address] GAP 10 Normal 5-15 [facility] Comment on above: Performed By: #### L 500.2500, L500.4100, L100.0500 #### [facility] [address] [place], [address] GFR/1.73 sq M.predicted among non-blacks MDRD (S/P/Bld) [Vol rate/Area] 82 mL/min/{1.73_m2} Normal >60 [facility] Comment on above: Result Comment: mL/m in/1.73m2 CKD-EPI Creatinine Equation (2020) Performed By: #### L 500.2500, L500.4100, L100.0500 #### [facility] [address] [place], [address] Glucose [Mass/Vol] 103 mg/dL High 70-99 [facility] Comment on above: Performed By: #### L 500.2500, L500.4100, L100.0500 #### [facility] [address] [place], [address] Potassium [Moles/Vol] 5.0 mmol/L Normal 3.3-5.1 [facility] Comment on above: Performed By: #### L 500.2500, L500.4100, L100.0500 #### [facility] [address] [place], [address] Sodium [Moles/Vol] 129 mmol/L Low 133-145 [facility] Comment on above: Performed By: #### L 500.2500, L500.4100, L100.0500 #### [facility] [address] [place], [address] Urea nitrogen [Mass/Vol] 20 mg/dL High 4-19 [facility] Comment on above: Performed By: #### L 500.2500, L500.4100, L100.0500 #### [facility] [address] [place], [address] CBC-Complete Blood Cnt No Demetria mclean 10-12-2024 Erythrocyte distribution width (RBC) [Ratio] 12.9 % Normal 11.6-14.6 [facility] Comment on above: Performed By: #### L 500.2500, L500.4100, L100.0500 #### [facility] [address] [place], [address] Hematocrit (Bld) [Volume fraction] 35.6 % Low 37-47 [facility] Comment on above: Performed By: #### L 500.2500, L500.4100, L100.0500 #### [facility] [address] [place], [address] Hemoglobin (Bld) [Mass/Vol] 11.9 g/dL Low 12.0-15.0 [facility] Comment on above: Performed By: #### L 500.2500, L500.4100, L100.0500 #### [facility] [address] [place], [address] MCH (RBC) [Entitic mass] 28.7 pg Normal 27.0-32.0 [facility] Comment on above: Performed By: #### L 500.2500, L500.4100, L100.0500 #### [facility] [address] [place], [address] MCHC (RBC) [Mass/Vol] 33.4 g/dL Normal 32-36 [facility] Comment on above: Performed By: #### L 500.2500, L500.4100, L100.0500 #### [facility] [address] [place], [address] MCV (RBC) [Entitic vol] 86.0 fL Normal 81-99 [facility] Comment on above: Performed By: #### L 500.2500, L500.4100, L100.0500 #### [facility] [address] [place], [address] Platelet mean volume (Bld) [Entitic vol] 10.2 fL Normal 6.2-12.0 [facility] Comment on above: Performed By: #### L 500.2500, L500.4100, L100.0500 #### [facility] [address] [place], [address] Platelets (Bld) [#/Vol] 215 10*3/uL Normal 150-450 [facility] Comment on above: Performed By: #### L 500.2500, L500.4100, L100.0500 #### [facility] [address] [place], [address] RBC (Bld) [#/Vol] 4.14 10*6/uL Low 4.2-5.4 [facility] Comment on above: Performed By: #### L 500.2500, L500.4100, L100.0500 #### [facility] [address] [place], [address] RDW SD 40.3 fl Normal 35.1-43.9 [facility] Comment on above: Performed By: #### L 500.2500, L500.4100, L100.0500 #### [facility] [address] [place], [address] WBC (Bld) [#/Vol] 7.7 10*3/uL Normal 4.4-11.0 [facility] Comment on above: Performed By: #### L 500.2500, L500.4100, L100.0500 #### [facility] [address] [place], [address] Blanco 10-12-2024 HERIBERTO Telephone (ToyTalkSHE) ----- OZZYBHARATI LOOMIS ([id number]) 1940 F CHITO Date Time Provider Department 10/12/24 LISSETTE CURIEL During your visit today, we recorded the following information about you: Elvia Magaña MA 10/13/2024 4:27 PM Addendum Pt calling from [facility]. She was admitted after a fall though a wooden step that caused her to hit her head and have an apparent heart attack. She would like Dr. Curiel to review her results when available. She would like to know if she has any restrictions from her normal activity and exercise. Concerned about Troponin level that was over 1000. Cardio consult/ECHO/EKG/LABS/DC SUMMARY from [facility] admission are as follows: Scan on 10/13/2024 11:42 AM by ProviderDirk PA-C: 10/11/2024 Cardiology Consult inpatient [facility] Scan on 10/13/2024 11:37 AM by ProviderDirk PA-C: EKG Scan on 10/13/2024 11:34 AM by ProviderDirk PA-C: 10/12/2024 [facility] ECHO Scan on 10/13/2024 4:05 PM by ProviderDirk PA-C: 10/11/2024 Tropt/BNP [facility] Scan on 10/13/2024 4:06 PM by ProviderDirk PA-C: Discharge Summary Lorna Bone LPN 10/14/2024 2:26 PM Signed Patient calling in requesting this to be added to her communication from 10/12/24. Pt states it was her first night at home last night and she woke up 1.5 hrs after going to bed with her left arm numb. She states she was sleeping on her right side at the time. She got up rubbed her arm, got a glass of water and took 1/2 of an ativan. She is also wondering if her report stated that she had a concussion?. Patient is requesting a call back after Dr. Curiel reviews her chart. NOA Ford Laurie, MA 10/14/2024 3:21 PM Signed Left detailed message that provider will likely not review message until Thursday. She should contact PCP or go back to ER if her symptoms are worrisome. Pt to call back with any further questions. AYSE Mitchell Jessica, LPN 10/17/2024 3:39 PM Signed Patient calling in again to check in about getting a call back with Dr. Mariee response. She states if she does not hear back today she will have to look at her options on what to do for herself. Patient is requesting a call back. NOA Ford Danelle, RN 10/17/2024 5:45 PM Signed Called patient. Patient asking if she can resume normal activities after being discharged from [facility] last week with having tokotsubo cardiomyopathy again. Please review and advise. Patient educated on Troponin lab work. Patient also rescheduled for 11/28/24 due to extensive questions. PRESTON Vargas Laurie, MA 10/18/2024 12:47 PM Signed Lorna Best APRN.CNP Typically, there are no restrictions for cardiomyopathy, whatever the patients symptoms will allow but I do not know if she had procedures or other co morbidities during hospitalization that would give her restrictions so I agree with PCP review. Thank you, Lorna Best APRN.Lorna Vides APRN.CNP Hiles, Laurie, MA 10/18/2024 12:47 PM Signed Left detailed message to inform that pt should have hospital follow up with PCP to assess any ongoing restrictions. Elvia Magaña MA Allergies As of Date: 10/12/2024 Noted Allergy Reaction COBEX 09/01/2008 14 - Other: See Comments Comments: Face and tongue swelled DEMEROL (MEPERIDINE (PF)) 07/13/2012 14 - Other: See Comments Comments: sensitive to this ERTHROMYCIN (ERYTHROMYCIN) 09/01/2008 5 - Intolerance Comments: irritable bowel, nausea iodinated contrast [Other] 09/01/2008 2 - Rash MACROBID (NITROFURANTOIN MONOHYD/*06/04/2010 14 - Other: See Comments Comments: irregular HR, black spots in eyes, and diaphoresis PENICILLINS 05/06/2010 2 - Rash Comments: No reaction to amoxacillin. STEROIDS (CORTICOSTEROIDS (GLUCOC*05/15/2014 12 - Shortness of Breath 14 - Other: See Comments Comments: Throat closed up with cortisone cream SULFA (SULFONAMIDE ANTIBIOTICS) 09/01/2008 2 - Rash Date Reviewed: 01/11/2024 Reviewed by: Lissette Curiel MD - Fully Assessed Reason for Visit: Patient Update [1234] Recent admission to [facility] [Other] Prescriptions as of 10/18/2024 - MEDICATION, NON-DATABASE reishi once per day - nitroglycerin sublingual (NITROQUICK) 0.4 mg SL tablet Dissolve 1 tablet under the tongue as needed. For Chest Pain. If No Relief CALL 911 - LORazepam (ATIVAN) 0.5 mg Take 0.5 mg by mouth once daily as needed. - metoprolol tartrate, short acting, (LOPRESSOR) 25 mg tablet Take 0.5 tablets by mouth twice daily. For rapid heart rates - selenium 200 mcg tab Take 1 tablet by mouth once daily. - ascorbic acid, vitamin C, (VITAMIN C) 500 mg tablet Take 500 mg by mouth once daily. - Cholecalciferol, Vitamin D3, (VITAMIN D) 1,000 unit tab Take 1,000 Units by mouth once daily. - CYANOCOBALAMIN, VITAMIN B-12, (VITAMIN B-12 ORAL) Take by mouth. - LACTOBACILLUS COMBO NO.6 (P (more content not included)... Normal [facility] Calculated very low density lipoprotein (VLDL) cholesterol measurementOrdered By: Timothy Baird on 10-12-2024 Calculated very low density lipoprotein (VLDL) cholesterol measurement 12 mg/dL 5-40 [facility] Carbon dioxide, total [Moles /volume] in Central venous bloodOrdered By: Timothy Baird on 10-12-2024 CO2 [Moles/Vol] 23.5 mmol/L 21.0-32.0 [facility] Chloride assayOrdered By: Kevin Baird on 10-12-2024 Chloride [Moles/Vol] 95 mmol/L Low 98-108 [facility] Discharge Instructionon 09-24 Discharge Instruction [facility] Medical Records Department [address] [place] [address] Instructions for Home/Discharge Instructions 10/12/24 1507 MR#: [id number] Acct: [id number] Name: BHARATI HILLIARD Rep #: [id number] : 1940 84 From: Vee Chavarria MD PCP: Dr. Cira Ku DO Status:ADM MARYCRUZ Discharge Instructions DC O2, CPAP, BIPAP needs Home O2 Discharge instructions: No Dressing / Incision Discharge Activity: Return to Normal Activity Dressing / Incision Call your doctor if you observe: Fever of 101 or Higher, Shortness of breath, Dizziness, Swelling in the ankles and Chest pain Follow Up Care Test Results: Test results from this visit will be discussed in further detail at your follow-up appointment, if applicable. Discharge Plan Admission Admit Date/Time: 10/11/24 14:13 Primary Reason for Your Visit: nonstemi, Takotsubo's cardiomyopathy Attending Provider: Vee Chavarria Primary Care Provider: Cira Ku Consulting Providers: Timothy Baird Instructions Patient Instructions: Takotsubo Cardiomyopathy Discharge Orders/Prescriptions Prescriptions: Continued lorazepam 0.5 mg tablet 0.25 mg PO DAILY PRN (Reason: anxiety) gupvssai-mihu-tbhyc-oreg- capry 100 mg-150 mg- 50 mg-150 mg capsule 1 cap PO DAILY PRN mecobalamin (vitamin B12) 1,000 mcg tablet,chewable 1,000 mcg PO DAILY cholecalciferol (vitamin D3) 50 mcg (2,000 unit) capsule 50 mcg PO DAILY ascorbic acid (vitamin C) 1,000 mg tablet 1 g PO DAILY Adult 50 Plus Probiotic 4 billion cell capsule 4,000 mmu cells PO DAILY Rx Instructions: administer with a meal selenium 200 mcg tablet 200 mcg PO DAILY ascorbic acid-elderberry fruit 100-50 mg tablet,chewable 1 tab PO DAILY PRN (Reason: during cold and flu season, supplement) vitamin B complex [Balanced B-50] Tablet 1 tab PO DAILY magnesium 200 mg tablet 200 mg PO QHS metoprolol tartrate 25 mg tablet 12.5 mg PO QHS Qty: 45 3RF Rx Instructions: Needs to be made by [employer] Referrals / Follow Up: oB Huitron MD [Med Staff - Active Staff] - Within 1 Week Cira Ku DO [Primary Care Provider] - Within 1 Week Disposition Disposition (needs filled in before D/C Order can be placed): Home, Self Care 10/12/24 1507 Vee Chavarria MD CC: Dr. Timothy Baird DO; Dr. Cira Ku DO Signed Normal [facility] Echocardiogram study reportO rdered By: Nova Hdz on 10-12-2024 Study report [facility] [place] [address] Echo Complete 10/12/24 0945 MR#: [id number] Acct: [id number] Name: BHARATI HILLIARD Rep #:[id number] : 1940 84 From: Nova Coronado Attending Dr: Dr. Vee Chavarria MD Status: ADM MARYCRUZ Ordering Dr: Timothy Baird DO Da te: 10/11/24 Location: [facility] Sex: F C Admitted: 10/11/24 Reason For Study Reason For Study: TAKOTSUBO SYNDROME Procedure This was a 2D Doppler, Color Flow transthoracic echocardiogram. Exam performed portable in patient room. Left Ventricle Normal LV size. Normal left ventricular thickness. The estimated ejection fraction is 40 %. There is hypokinesis of the mid septal, lateral, and inferior frausto, extending to the apex. In Takutsubo fashion. Right Ventricle Normal size and thickness. Normal systolic function. Atria There is moderate biatrial dilatation. Mitral Valve The mitral valve is structurally normal. No prolapse or stenosis seen. Mild (1+)mitral valve insufficiency. Tricuspid Valve Normal tricuspid valve. Mild tricuspid valve insufficiency. Right ventricular systolic pressure estimated to be 22 mmHg. Aortic Valve Normal aortic valve. There is no aortic stenosis. No aortic valve insufficiency. Great Vessels No collapse of the inferior vena cava. MMode/2D Measurements & Calculations LVIDd: 3.4 cm IVSd: 0.86 cm Ao root diam: 3.1 cm LVIDs: 2.4 cm LVPWd: 0.86 cm RVDd: 2.8 cm FS: 29.2 % LAV(MOD-bp): 48.5 ml SV(MOD-sp4): 20.9 ml LVAd ap4: 19.9 cm2 LAV(MOD-bp) Indexed: 34.0 ml/m2 LVLd ap4: 6.9 cm SI(MOD-sp4): 14.7 ml/m2 LAV(MOD-sp2): 43.6 ml EDV(MOD-sp4): 47.4 ml LAV(MOD-sp4): 47.1 ml EDV(sp4-el): 48.8 ml LVAs ap4: 14.4 cm2 LVLs ap4: 6.9 cm ESV(MOD-sp4): 26.4 ml ESV(sp4-el): 25.7 ml EF(MOD-sp4): 44.2 % EF(sp4-el): 47.4 % SV(sp4-el): 23.2 ml LA dimension(2D): 3.0 cm LA A4 area: 16.0 cm2 TAPSE: 2.2 cm RA A4 area: 10.7 cm2 Time Measurements MV dec time: 0.16 sec Doppler Measurements & Calculations MV E max sabina: 86.0 cm/sec Lat Peak E' Sabina: 8.8 cm/sec Med Peak E' Sabina: 9.0 cm/sec MV A max sabina: 110.4 cm/sec E/E' lat: 9.8 E/E' med: 9.5 MV E/A: 0.78 MV V2 max: 124.2 cm/sec MV P1/2t max sabina: 88.6 cm/sec Ao V2 max: 107.8 cm/sec MV max P.2 mmHg MV P1/2t: 40.3 msec Ao max P.6 mmHg MV V2 mean: 68.6 cm/sec Ao V2 mean: 77.2 cm/sec MV mean P.2 mmHg MV dec slope: 645.1 cm/sec2 Ao mean P.6 mmHg MV V2 VTI: 27.2 cm MVA(P1/2t): 5.5 cm2 Ao V2 VTI: 21.0 cm AV (velocity ratio): 0.70 AI max sabina: 376.9 cm/sec LV V1 max: 64.8 cm/sec PA V2 max: 94.3 cm/sec AI max P.8 mmHg LV V1 max P.7 mmHg AI dec slope: 319.2 cm/sec2 LV V1 mean P.0 mmHg AI P1/2t: 345.9 msec LV V1 mean: 49.6 cm/sec LV V1 VTI: 14.6 cm TR max sabina: 288.9 cm/sec TR max P.4 mmHg ECHO/Echo Complete Interpretation Summary The estimated ejection fraction is 40 %. There is hypokinesis of the mid septal, lateral, and inferior frausto, extending to the apex. In Takutsubo fashion. A complete two-dimensional transthoracic echocardiogram was performed (2D, M-mode, Doppler and color flow Doppler). ___ Ordering Physician: Timothy Baird Referring Physician: Cira Ku Performed By: Brenda Wang, DES, RVT 10/12/24 1227 Date _ Nova Hdz MD CC: Dr. Nova Hdz MD; Dr. Timothy Baird DO; Dr. Cira Ku DO; Dr. 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 Vee Chavarria MD Status: ADM MARYCRUZ Ordering Dr: Zeyad Moe MD Date: Location: [facility] Sex: F C Admitted: 10/11/24 Test Reason : REPEAT Blood Pressure : */* mmHG Vent. Rate : 109 BPM Atrial Rate : 109 BPM P-R Int : 142 ms QRS Dur : 80 ms QT Int : 364 ms P-R-T Axes : 70 26 61 degrees QTcB Int : 490 ms Sinus tachycardia Possible Left atrial enlargement QTcB >= 480 msec Abnormal ECG Confirmed by JACKY WU, BO ([id number]), supervising film or videotape editor ANTHONY MEDINA ([id number]) on 10/12/2024 9:37:06 AM Referred By: Nova Hdz Confirmed By: BO HUITRON MD 10/12/24 0937 Date _ Bo Huitron MD CC: Dr. Nova Hdz MD; Dr. Zeyad Moe MD; Dr. Cira Ku DO; Dr. Vee Chavarria MD ~ Signed [facility] Other EKG study [facility] [address] [place] [address] 12 Lead EKG 10/11/24 1130 MR#: [id number] Acct: [id number] Name: BHARATI HILLIARD Rep #:[id number] : 1940 84 From: Bo Huitron MD Attending Dr: Dr. Vee Chavarria MD Status: ADM MARYCRUZ Ordering Dr: Zeyad Moe MD Date: Location: [facility] Sex: F C Admitted: 10/11/24 Test Reason : PALP Blood Pressure : */* mmHG Vent. Rate : 116 BPM Atrial Rate : 116 BPM P-R Int : 152 ms QRS Dur : 82 ms QT Int : 332 ms P-R-T Axes : 74 42 70 degrees QTcB Int : 461 ms Critical Test Result: STEMI Sinus tachycardia with Premature supraventricular complexes Abnormal ECG can not r exclude acute ischemia Confirmed by BO HUITRON MD ([id number]), supervising film or videotape editor ANTHONY MEDINA ([id number]) on 10/12/2024 9:37:54 AM Referred By: Nova Hdz Confirmed By: BO HUITRON MD 10/12/24 0937 Date _ Bo Huitron MD CC: Dr. Nova Hdz MD; Dr. Zeyad Moe MD; Dr. Cira Ku DO; Dr. Vee Chavarria MD ~ Signed [facility] Other Erythrocyte distribution wid th ratioOrdered By: Timothy Baird on 10-12-2024 Erythrocyte distribution width (RBC) [Ratio] 12.9 % 11.6-14.6 [facility] Erythrocyte distribution wid th standard deviationOrdered By: Timothy Baird on 10-12-2024 Erythrocyte distribution width (RBC) [Ratio] 40.3 fl 35.1-43.9 [facility] Glomerular filtration rate ( GFR) estimation/1.73 sq m using serum, plasma, or whole bOrdered By: Timothy Baird on 10-12-2024 GFR/1.73 sq M.predicted among non-blacks MDRD (S/P/Bld) [Vol rate/Area] 82 mL/min/{1.73_m2} >60 [facility] Comment on above: mL/min/1.73m2 CKD-EP I Creatinine Equation (2020) Hematocrit Auto (Bld) [Volum e fraction]Ordered By: Timothy Baird on 10-12-2024 Hematocrit (Bld) [Volume fraction] 35.6 % Low 37-47 [facility] Hemoglobin measurementOrdere d By: Timothy Baird on 10-12-2024 Hemoglobin (Bld) [Mass/Vol] 11.9 g/dL Low 12.0-15.0 [facility] LDL calc ser/plasOrdered By: Timothy Baird on 10-12-2024 Cholesterol in LDL [Mass/Vol] 90 mg/dL [facility] Comment on above: Qskxniynnr=812-737 m g/dL & Higher Yubd=235 mg/dL or greaterFriedwald Equation for LDL-C Lipid Profileon 10-12-2024 CHOL:HDL 2.28 Normal [facility] Comment on above: Performed By: #### L 500.2500, L500.4100, L100.0500 #### [facility] [address] [place], [address] Cholesterol [Mass/Vol] 183 mg/dL Normal <=200 [facility] Comment on above: Result Comment: Chol esterol level, Desirable <200 mg/dL Borderline high cholesterol 200-239 mg/dL High cholesterol >=240 mg/dL Recommendations of the NCEP Adult Treatment Panel for the following risk-cutoff thresholds for the [place] population. Performed By: #### L 500.2500, L500.4100, L100.0500 #### [facility] [address] [place], [address] Cholesterol in HDL [Mass/Vol] 80 mg/dL Normal [facility] Comment on above: Result Comment: Josi onal Cholesterol Education Program (NCEP) guidelines: <40 mg/dL: Low HDL-cholesterol (major risk factor for CHD) >= 60 mg/dL: High HDL-cholesterol (negative risk factor for CHD) HDL-cholesterol is affected by a number of factors, e.g. smoking, exercise, hormones, sex and age. Performed By: #### L 500.2500, L500.4100, L100.0500 #### [facility] [address] [place], [address] Cholesterol in LDL [Mass/Vol] 90 mg/dL Normal [facility] Comment on above: Result Comment: Bord uvvrqg=552-721 mg/dL Higher Wgbf=192 mg/dL or greater Friedwald Equation for LDL-C Performed By: #### L 500.2500, L500.4100, L100.0500 #### [facility] [address] [place], [address] Cholesterol in VLDL [Mass/Vol] 12 mg/dL Normal 5-40 [facility] Comment on above: Performed By: #### L 500.2500, L500.4100, L100.0500 #### [facility] [address] [facility] [place], [address] Triglyceride [Mass/Vol] 61 mg/dL Normal [facility] Comment on above: Result Comment: The drugs N-Acetylcysteine and Metamizole may falsely depress this assay. Normal range: <150 mg/dL Borderline High: 150-199 mg/dL High: 200-499 mg/dL Very High: >500 mg/dL Performed By: #### L 500.2500, L500.4100, L100.0500 #### [facility] [address] [facility] [place], [address] MCV (mean corpuscular volume ) determinationOrdered By: Timothy Baird on 10-12-2024 MCV (RBC) [Entitic vol] 86.0 fL 81-99 [facility] Mean corpuscular hemoglobin (MCH) determinationOrdered By: Timothy Baird on 10-12-2024 MCH (RBC) [Entitic mass] 28.7 pg 27.0-32.0 [facility] Mean corpuscular hemoglobin concentration (MCHC) determinationOrdered By: Timothy Baird on 10-12-2024 MCHC (RBC) [Mass/Vol] 33.4 g/dL 32-36 [facility] Mean platelet volume determi nationOrdered By: Timothy Baird on 10-12-2024 Platelet mean volume (Bld) [Entitic vol] 10.2 fL 6.2-12.0 [facility] Platelet countOrdered By: Kevin Baird on 10-12-2024 Platelets (Bld) [#/Vol] 215 10*3/uL 150-450 [facility] Potassium measurement (mass/ volume)Ordered By: Timothy Baird on 10-12-2024 Potassium (Unsp spec) [Mass/Vol] 5.0 mmol/L 3.3-5.1 [facility] RBC Auto (Bld) [#/Vol]Ordere d By: Timothy Baird on 10-12-2024 RBC (Bld) [#/Vol] 4.14 10*6/uL Low 4.2-5.4 [facility] Screening total cholesterol/ high density lipoprotein (HDL) cholesterol ratioOrdered By: Timothy Baird on 10-12-2024 Cholesterol.total/Cho lesterol in HDL [Mass ratio] 2.28 {ratio} [facility] Serum creatinine measurement (mass/volume)Ordered By: Timothy Baird on 10-12-2024 Creatinine [Mass/Vol] 0.73 mg/dL 0.70-1.20 [facility] Serum glucose measurement (m ass/volume)Ordered By: Timothy Baird on 10-12-2024 Glucose [Mass/Vol] 103 mg/dL High 70-99 [facility] Serum or plasma calcium clive urement (mass/volume)Ordered By: Timothy Baird on 10-12-2024 Calcium [Mass/Vol] 9.0 mg/dL 7.6-11.0 [facility] Serum or plasma cholesterol in HDL measurement (mass/volume)Ordered By: Timothy Baird on 10-12-2024 Cholesterol in HDL [Mass/Vol] 80 mg/dL >40 [facility] Comment on above: National Cholesterol Education Program (NCEP) guidelines:<40 mg/dL: Low HDL-cholesterol (major risk factor for CHD)>= 60 mg/dL: High HDL-cholesterol (negative risk factor for CHD)HDL-cholesterol is affected by a number of factors, e.g. smoking, exercise, hormones, sex and age. Serum or plasma cholesterol measurement (mass/volume)Ordered By: Timothy Baird on 10-12-2024 Cholesterol [Mass/Vol] 183 mg/dL <201 [facility] Comment on above: Cholesterol level, D esirable <200 mg/dLBorderline high cholesterol 200-239 mg/dLHigh cholesterol >=240 mg/dLRecommendations of the NCEP Adult Treatment Panel for the following risk-cutoff thresholds for the [place] population. Serum or plasma urea nitroge n measurement (mass/volume)Ordered By: Timothy Baird on 10-12-2024 Urea nitrogen [Mass/Vol] 20 mg/dL High 4-19 [facility] Sodium levelOrdered By: Zeyad Baird on 10-12-2024 Sodium [Moles/Vol] 129 mmol/L Low 133-145 [facility] Triglycerides measurementOrd ered By: Timothy Morrisbraulio on 10-12-2024 Triglyceride [Mass/Vol] 61 mg/dL <199 [facility] Comment on above: The drugs N-Acetylcy steine and Metamizole may falsely depress this assay. Normal range: <150 mg/dLBorderline High: 150-199 mg/dLHigh: 200-499 mg/dLVery High: >500 mg/dL White blood cell (WBC) count Ordered By: Timothy Baird on 10-12-2024 WBC (Bld) [#/Vol] 7.7 10*3/uL 4.4-11.0 [facility] 12 Lead EKGon 10-11-2024 12 Lead EKG [facility] [address] [place] [address] 12 Lead EKG 10/11/24 1347 MR#: [id number] Acct: [id number] Name: BHARATI HILLIARD Rep #: [id number] : 1940 84 From: Bo Huitron MD Attending Dr: Dr. Vee Chavarria MD Status: KURT JOEL Ordering Dr: Zeyad Moe MD Date: 10/11/24 Location: [facility] Sex: F C Admitted: 10/11/24 Test Reason : REPEAT Blood Pressure : */* mmHG Vent. Rate : 109 BPM Atrial Rate : 109 BPM P-R Int : 142 ms QRS Dur : 80 ms QT Int : 364 ms P-R-T Axes : 70 26 61 degrees QTcB Int : 490 ms Sinus tachycardia Possible Left atrial enlargement QTcB >= 480 msec Abnormal ECG Confirmed by BO HUITRON MD ([id number]), supervising film or videotape editor ANTHONY MEDINA ([id number]) on 10/12/2024 9:37:06 AM Referred By: Nova Hdz Confirmed By: BO HUITRON MD 10/12/24 0937 Date Bo Huitron MD CC: Dr. Nova Hdz MD; Dr. Zeyad Moe MD; Dr. Cira Ku DO; Dr. Vee Chavarria MD Signed [facility] 12 Lead EKG [facility] [address] [place] [address] 12 Lead EKG 10/11/24 1130 MR#: [id number] Acct: [id number] Name: BHARATI HILLIARD Rep #: [id number] : 1940 84 From: Bo Huitron MD Attending Dr: Dr. Vee Chavarria MD Status: KURT JOEL Ordering Dr: Zeyad Moe MD Date: 10/11/24 Location: [facility] Sex: F C Admitted: 10/11/24 Test Reason : PALP Blood Pressure : */* mmHG Vent. Rate : 116 BPM Atrial Rate : 116 BPM P-R Int : 152 ms QRS Dur : 82 ms QT Int : 332 ms P-R-T Axes : 74 42 70 degrees QTcB Int : 461 ms Critical Test Result: STEMI Sinus tachycardia with Premature supraventricular complexes Abnormal ECG can not r exclude acute ischemia Confirmed by JACKY WU, BO ([id number]), supervising film or videotape editor ANTHONY MEDINA ([id number]) on 10/12/2024 9:37:54 AM Referred By: Nova Hdz Confirmed By: BO HUITRON MD 10/12/24 0937 Date Bo Huitron MD CC: Dr. Nova Hdz MD; Dr. Zeyad Moe MD; Dr. Cira Ku DO; Dr. Vee Chavarria MD Signed [facility] Absolute lymphocyte countOrd ered By: Zeyad Moe on 10-11-2024 Lymphocytes Auto (Unsp spec) [#/Vol] 2.82 10*3/uL 0.83-4.51 [facility] Absolute neutrophil countOrd ered By: Zeyad Moe on 10-11-2024 Neutrophils (Bld) [#/Vol] 4.3 10*3/uL 2.0-7.7 [facility] Anion gap in Serum or Plasma Ordered By: Zeyad Moe on 10-11-2024 Anion gap [Moles/Vol] 17 mmol/L High 5-15 [facility] Automated lymphocyte count a s percentage of total leukocytesOrdered By: Zeyad Moe on 10-11-2024 Lymphocytes/100 WBC Auto (Unsp spec) 35.7 % 19-41 [facility] BUN/creatinine ratioOrdered By: Zeyad Moe on 10-11-2024 Urea nitrogen/Creatinine [Mass ratio] 22.8 mg/mg High 10- [facility] Basic Metabolic Profile (BMP )on 10-11-2024 BUN/CRE 22.8 RATIO High 12-12 [facility] Comment on above: Performed By: #### L 501.4021, L100.0100, L500.2500 #### [facility] [address] [place], [address] Calcium [Mass/Vol] 9.8 mg/dL Normal 7.6-11.0 [facility] Comment on above: Performed By: #### L 501.4021, L100.0100, L500.2500 #### [facility] [address] [place], [address] Chloride [Moles/Vol] 93 mmol/L Low 98-108 [facility] Comment on above: Performed By: #### L 501.4021, L100.0100, L500.2500 #### [facility] [address] [place], [address] CO2 [Moles/Vol] 21.5 mmol/L Normal 21.0-32.0 [facility] Comment on above: Performed By: #### L 501.4021, L100.0100, L500.2500 #### [facility] [address] [place], [address] Creatinine [Mass/Vol] 0.81 mg/dL Normal 0.70-1.20 [facility] Comment on above: Performed By: #### L 501.4021, L100.0100, L500.2500 #### [facility] [address] [place], [address] ECRCL 37.97 ml/min Low 50-250 [facility] Comment on above: Performed By: #### L 501.4021, L100.0100, L500.2500 #### [facility] [address] [place], [address] GAP 17 High 5-15 [facility] Comment on above: Performed By: #### L 501.4021, L100.0100, L500.2500 #### [facility] [address] [place], [address] GFR/1.73 sq M.predicted among non-blacks MDRD (S/P/Bld) [Vol rate/Area] 72 mL/min/{1.73_m2} Normal >60 [facility] Comment on above: Result Comment: mL/m in/1.73m2 CKD-EPI Creatinine Equation (2020) Performed By: #### L 501.4021, L100.0100, L500.2500 #### [facility] [address] [place], [address] Glucose [Mass/Vol] 112 mg/dL High 70-99 [facility] Comment on above: Performed By: #### L 501.4021, L100.0100, L500.2500 #### [facility] [address] [place], [address] Potassium [Moles/Vol] 4.6 mmol/L Normal 3.3-5.1 [facility] Comment on above: Performed By: #### L 501.4021, L100.0100, L500.2500 #### [facility] [address] [place], [address] Sodium [Moles/Vol] 132 mmol/L Low 133-145 [facility] Comment on above: Performed By: #### L 501.4021, L100.0100, L500.2500 #### [facility] [address] [place], [address] Urea nitrogen [Mass/Vol] 18 mg/dL Normal 4-19 [facility] Comment on above: Performed By: #### L 501.4021, L100.0100, L500.2500 #### [facility] [address] [place], [address] Basophil percentageOrdered B y: Zeyad Moe on 10-11-2024 Basophils/100 WBC (Bld) 0.6 % 0-1 [facility] Brain/Head without Contrasto n 10-11-2024 Brain/Head without Contrast [facility] Imaging Services [address] [facility] [place] [address] Brain/Head without Contrast MR#: [id number] Acct: [id number] Name: BHARATI HILLIARD Rep #: [id number] : 1940 F 84 From: Mike Narvaez MD PCP: Dr. Cira Ku, Status: REG ER Study: Brain/Head without Contrast Date of Exam: 09/23 11/17 Exam# [id number] Ordering Dr: Zeyad Moe MD EXAM: NONCONTRAST CT SCAN OF THE HEAD CLINICAL HISTORY: Trauma COMPARISON: None TECHNIQUE: Serial axial series through the head were obtained without contrast. 2-D coronal and sagittal reformats were then obtained. FINDINGS: Brain: There is no acute large territorial infarct, intracranial hemorrhage, midline shift or mass effect. There are atherosclerotic vascular calcifications involving the bilateral carotid siphons. The sella and pineal gland regions appear unremarkable. There is no evidence of cerebellar tonsillar herniation. Ventricles: There is no acute hydrocephalus. Basilar cisterns are patent. Paranasal sinuses: Well-aerated Mastoid air cells: Well-aerated. Calvarium: The bony calvarium is intact. Orbits: The bilateral globes are symmetric, without retrobulbar compressive mass lesion or hemorrhage. CT/Brain/Head without Contrast IMPRESSION: No acute intracranial pathology. Reading Location: [facility] CC: Dr. Zeyad Moe MD; Dr. Cira Ku, DO Salvage Repairer: Signed Normal [facility] CBC W/Diff, Automatedon - Absolute Lymph 2.82 X10 3/uL Normal 0.83-4.51 [facility] Comment on above: Performed By: #### L 501.4021, L100.0100, L500.2500 #### [facility] [address] [place], [address] Absolute Neut 4.3 X10 3/uL Normal 2.0-7.7 [facility] Comment on above: Performed By: #### L 501.4021, L100.0100, L500.2500 #### [facility] [address] [place], [address] Basophils/100 WBC (Bld) 0.6 % Normal 0-1 [facility] Comment on above: Performed By: #### L 501.4021, L100.0100, L500.2500 #### [facility] [address] [place], [address] Eosinophils/100 WBC (Bld) 0.5 % Normal 0-5 [facility] Comment on above: Performed By: #### L 501.4021, L100.0100, L500.2500 #### [facility] [address] [place], [address] Erythrocyte distribution width (RBC) [Ratio] 12.9 % Normal 11.6-14.6 [facility] Comment on above: Performed By: #### L 501.4021, L100.0100, L500.2500 #### [facility] [address] [place], [address] Hematocrit (Bld) [Volume fraction] 42.9 % Normal 37-47 [facility] Comment on above: Performed By: #### L 501.4021, L100.0100, L500.2500 #### [facility] [address] [place], [address] Hemoglobin (Bld) [Mass/Vol] 14.7 g/dL Normal 12.0-15.0 [facility] Comment on above: Performed By: #### L 501.4021, L100.0100, L500.2500 #### [facility] [address] [place], [address] IG% 0.300 Normal 0.0-0.9 [facility] Comment on above: Result Comment: IG% - Immature Granulocytes (promyelocytes, myelocytes and metamyelocytes) > 1% indicates that a LEFT SHIFT is Present. Performed By: #### L 501.4021, L100.0100, L500.2500 #### [facility] [address] [place], [address] Lymphocytes/100 WBC (Bld) 35.7 % Normal 19-41 [facility] Comment on above: Performed By: #### L 501.4021, L100.0100, L500.2500 #### [facility] [address] [place], [address] MCH (RBC) [Entitic mass] 29.5 pg Normal 27.0-32.0 [facility] Comment on above: Performed By: #### L 501.4021, L100.0100, L500.2500 #### [facility] [address] [place], [address] MCHC (RBC) [Mass/Vol] 34.3 g/dL Normal 32-36 [facility] Comment on above: Performed By: #### L 501.4021, L100.0100, L500.2500 #### [facility] [address] [place], [address] MCV (RBC) [Entitic vol] 86.0 fL Normal 81-99 [facility] Comment on above: Performed By: #### L 501.4021, L100.0100, L500.2500 #### [facility] [address] [place], [address] Monocytes/100 WBC (Bld) 9.1 % Normal 0-10 [facility] Comment on above: Performed By: #### L 501.4021, L100.0100, L500.2500 #### [facility] [address] [place], [address] Neutrophils/100 WBC (Bld) 53.8 % Normal 47-70 [facility] Comment on above: Performed By: #### L 501.4021, L100.0100, L500.2500 #### [facility] [address] [place], [address] Nucleated RBC (Bld) [#/Vol] 0 10*3/uL Normal 0-5 [facility] Comment on above: Performed By: #### L 501.4021, L100.0100, L500.2500 #### [facility] [address] [place], [address] Platelet mean volume (Bld) [Entitic vol] 10.5 fL Normal 6.2-12.0 [facility] Comment on above: Performed By: #### L 501.4021, L100.0100, L500.2500 #### [facility] [address] [place], [address] Platelets (Bld) [#/Vol] 287 10*3/uL Normal 150-450 [facility] Comment on above: Performed By: #### L 501.4021, L100.0100, L500.2500 #### [facility] [address] [place], [address] RBC (Bld) [#/Vol] 4.99 10*6/uL Normal 4.2-5.4 [facility] Comment on above: Performed By: #### L 501.4021, L100.0100, L500.2500 #### [facility] [address] [place], [address] RDW SD 39.9 fl Normal 35.1-43.9 [facility] Comment on above: Performed By: #### L 501.4021, L100.0100, L500.2500 #### [facility] [address] [place], [address] WBC (Bld) [#/Vol] 7.9 10*3/uL Normal 4.4-11.0 [facility] Comment on above: Performed By: #### L 501.4021, L100.0100, L500.2500 #### [facility] [address] [place], [address] Carbon dioxide, total [Moles /volume] in Central venous bloodOrdered By: Zeyad Moe on 10-11-2024 CO2 [Moles/Vol] 21.5 mmol/L 21.0-32.0 [facility] Chest 1 View (Portable)on Chest 1 View (Portable) [facility] Services [address] [place] [address] Chest 1 View (Portable) MR#: [id number] Acct: [id number] Name: BHARATI HILLIARD Rep #: [id number] : 1940 F 84 From: Rogers Avendaño MD PCP: Dr. Cira Ku, DO Status: [facility] ER Study: Chest 1 View (Portable) Date of Exam: 10/11/24 Exam# [id number] Ordering Dr: Zeyad Moe MD PROCEDURE: CHEST 1 VIEW (PORTABLE) 10/11/2024 REASON FOR EXAM: CHEST PAIN TECHNIQUE: Frontal view of the chest. COMPARISON: October 27, 2020 FINDINGS: Hardware: EKG leads are present Heart: Mildly enlarged. Lungs: Clear. Bones: Curvature thoracolumbar spine to the right. Mild degenerative changes. RAD/Chest 1 View (Portable) IMPRESSION: No acute cardiopulmonary process. Thoracolumbar curvature of the spine to the right. Reading Location: [id number] CC: Dr. Zeyad Moe MD; Dr. Cira Ku DO Salvage Repairer: Signed Normal [facility] Chloride assayOrdered By: Kevin Moe on 10-11-2024 Chloride [Moles/Vol] 93 mmol/L Low 98-108 [facility] Consultation - Cardiologyon 10-11-2024 Consultation - Cardiology [facility] Medical Records Department [address] [place] [address] Consultation - Cardiology 10/11/24 1206 MR#: [id number] Acct: [id number] Name: BHARATI HILLIARD Rep #: [id number] : 1940 84 From: Nova Hdz MD PCP: Dr. Cira Ku DO Status:REG ER Location: ED Assessment Plan Assessment/Plan (1) Takotsubo cardiomyopathy: (2) History of supraventricular tachycardia: (3) Essential hypertension: (4) HLD (hyperlipidemia): QUALIFIERS: Hyperlipidemia type: moderate mixed hyperlipidemia not requiring statin therapy Qualified Code(s): E78.2 - Mixed hyperlipidemia PLAN: Plan -continue to trend troponin to peak, however, after extended discussion with patient, if she does not have any cardiac causes for remaining in hospital, it is reasonable to discharge with outpatient followup -TTE to be done (inpatient or outpatient, pending clinical course) -if BP remains elevated, would start losartan 25mg daily -telemetry monitoring -recommend initiation of statin given DLD and ASCVD risk PT Evaluation Evaluation for neurologic deficit and/or intracranial bleed HPI Consult Data Date of Consult: 10/11/24 HPI Narrative HPI Narrative: BHARATI HILLIARD, is a 84 F past cardiovascular history which is included underlying Takotsubo syndrome (3 occurrences), SVT, and hypertension who presented to ED after a mechanical fall in which she hit her head. ECG with diffuse ST elevations, most prominent in anterior leads, and code STEMI called. Patient denies shortness of breath, chest pain, or other symptoms. States she knows this is her Takutsubo acting up, and does not wish to undergo cardiac catheterization. Discussed extensively with family and patient regarding her history, risks and benefits of proceeding with cath, as well as red flag symptoms. Patient states she stepped and her foot went through a rotting step on a wooden staircase, and that's what caused her to hit her head. No LOC, palpitations, dizziness, or other prodrome. [facility] Medical History Hypothyroidism Elevated troponin Takotsubo cardiomyopathy History of left heart catheterization (08/10/19) Abrasion of knee, bilateral History of uterine cancer Cystadenoma History of supraventricular tachycardia History of coronary vasospasm History of non-ST elevation myocardial infarction (NSTEMI) History of uterine cancer Vitamin D deficiency Essential hypertension Personal history of colonic polyps Jamie's disease Cataract Elevated LFTs Anxiety and depression Psoriasis IBS (irritable bowel syndrome) Home Medications ???Medication ???Instructions ???Recorded ???Last Taken ???Type turmeric 100 mg-sae 150 cap PO 11/01/20 Unknown History mg-olive 50 mg-oreg 150 mg-capryl capsule ascorbic acid (vitamin C) 1,000 mg 1 g PO DAILY 12/03/20 Unknown Hi story tablet cholecalciferol (vitamin D3) 50 50 mcg PO DAILY 12/03/20 Unknown H istory mcg (2,000 unit) capsule mecobalamin (vitamin B12) 1,000 1,000 mcg PO DAILY 12/03/20 Unknow n History mcg chewable tablet lactobacillus combination no.9 4 4,000 mmu cells PO DAILY 04/12/21 Unknown History billion cell capsule (Adult 50 Plus Probiotic) selenium 200 mcg tablet 200 mcg PO DAILY 04/12/21 Unknown History metoprolol tartrate 25 mg tablet 12.5 mg (1/2 x 25 mg) PO QHS #45 0 05/09/21 Unknown Rx tabs ascorbic acid 100 mg-elderberry 1 tab PO DAILY 11/06/21 Unknown Hi story fruit 50 mg chewable tablet lorazepam 0.5 mg tablet 0.25 mg PO DAILY PRN anxiety 11/06 Unknown History amlodipine 2.5 mg tablet 2.5 mg PO DAILY PRN Ordered by Dr. 07/03/22 Unknown History [place] for travel if BP goes up amoxicillin 250 mg capsule 500 mg (2 x 250 mg) PO BID #28 cap s 01/05/23 Unknown Rx Allergy/AdvReac Type Severity Reaction Status Date / Time cortisone Allergy Severe Throat Verified 10/11/24 10:58 swelling nitrofurantoin (From Allergy Severe Irregular Verified 10/11/24 10:58 Macrobid) HB, vision changes, diaphoresis erythromycin base Allergy Intermediate Unknown Verified 10/11/24 10:58 meperidine (From Demerol) Allergy Intermediate Unknown Verified 10/11/24 10:58 cyanocobalamin (vitamin B12) Allergy Anaphylaxis Verified 10/11/24 10:58 Iodinated Contrast Media Allergy Rash Verified 10/11/24 10:58 (Iodinated Contrast Media - Oral and) Penicillins Allergy Rash Verified 10/11/24 10:58 Sulfa (Sulfonamide Allergy Rash Verified 10/11/24 10:58 Antibiotics) Family History Father , Age 90 Cancer prostate CAD (coronary artery disease) Pacemaker COPD (chronic obstructive pulmonary disease) Brother CAD (coronary artery disease) CABG x 5 Hypertension (more content not included)... Normal [facility] Echo Completeon 10-11-2024 Echo Complete [facility] [address] [place] [address] Echo Complete 10/12/24 0945 MR#: [id number] Acct: [id number] Name: BHARATI HILLIARD Rep #: [id number] : 1940 84 From: Nova Hdz MD Attending Dr: Dr. Vee Chavarria MD Status: KURT JOEL Ordering Dr: Timothy Baird DO Date: 10/11/24 Location: U Sex: F C Admitted: 10/11/24 Reason For Study Reason For Study: TAKOTSUBO SYNDROME Procedure This was a 2D Doppler, Color Flow transthoracic echocardiogram. Exam performed portable in patient room. Left Ventricle Normal LV size. Normal left ventricular thickness. The estimated ejection fraction is 40 %. There is hypokinesis of the mid septal, lateral, and inferior frausto, extending to the apex. In Takutsubo fashion. Right Ventricle Normal size and thickness. Normal systolic function. Atria There is moderate biatrial dilatation. Mitral Valve The mitral valve is structurally normal. No prolapse or stenosis seen. Mild (1+) mitral valve insufficiency. Tricuspid Valve Normal tricuspid valve. Mild tricuspid valve insufficiency. Right ventricular systolic pressure estimated to be 22 mmHg. Aortic Valve Normal aortic valve. There is no aortic stenosis. No aortic valve insufficiency. Great Vessels No collapse of the inferior vena cava. MMode/2D Measurements Calculations LVIDd: 3.4 cm IVSd: 0.86 cm Ao root diam: 3.1 cm LVIDs: 2.4 cm LVPWd: 0.86 cm RVDd: 2.8 cm FS: 29.2 % LAV(MOD-bp): 48.5 ml SV(MOD-sp4): 20.9 ml LVAd ap4: 19.9 cm2 LAV(MOD-bp) Indexed: 34.0 ml/m2 LVLd ap4: 6.9 cm SI(MOD-sp4): 14.7 ml/m2 LAV(MOD-sp2): 43.6 ml EDV(MOD-sp4): 47.4 ml LAV(MOD-sp4): 47.1 ml EDV(sp4-el): 48.8 ml LVAs ap4: 14.4 cm2 LVLs ap4: 6.9 cm ESV(MOD-sp4): 26.4 ml ESV(sp4-el): 25.7 ml EF(MOD-sp4): 44.2 % EF(sp4-el): 47.4 % SV(sp4-el): 23.2 ml LA dimension(2D): 3.0 cm LA A4 area: 16.0 cm2 TAPSE: 2.2 cm RA A4 area: 10.7 cm2 Time Measurements MV dec time: 0.16 sec Doppler Measurements Calculations MV E max sabina: 86.0 cm/sec Lat Peak E' Sabina: 8.8 cm/sec Med Peak E' Sabina: 9.0 cm/sec MV A max sabina: 110.4 cm/sec E/E' lat: 9.8 E/E' med: 9.5 MV E/A: 0.78 MV V2 max: 124.2 cm/sec MV P1/2t max sabina: 88.6 cm/sec Ao V2 max: 107.8 cm/sec MV max P.2 mmHg MV P1/2t: 40.3 msec Ao max P.6 mmHg MV V2 mean: 68.6 cm/sec Ao V2 mean: 77.2 cm/sec MV mean P.2 mmHg MV dec slope: 645.1 cm/sec2 Ao mean P.6 mmHg MV V2 VTI: 27.2 cm MVA(P1/2t): 5.5 cm2 Ao V2 VTI: 21.0 cm AV (velocity ratio): 0.70 AI max sabina: 376.9 cm/sec LV V1 max: 64.8 cm/sec PA V2 max: 94.3 cm/sec AI max P.8 mmHg LV V1 max P.7 mmHg AI dec slope: 319.2 cm/sec2 LV V1 mean P.0 mmHg AI P1/2t: 345.9 msec LV V1 mean: 49.6 cm/sec LV V1 VTI: 14.6 cm TR max sabina: 288.9 cm/sec TR max P.4 mmHg ECHO/Echo Complete Interpretation Summary The estimated ejection fraction is 40 %. There is hypokinesis of the mid septal, lateral, and inferior frausto, extending to the apex. In Takutsubo fashion. A complete two-dimensional transthoracic echocardiogram was performed (2D, M-mode, Doppler and color flow Doppler). ___ Ordering Physician: Timothy Baird Referring Physician: Cira Ku Performed By: Brenda Wang RDCS, RVT 10/12/24 1227 Date Nova Hdz MD CC: Dr. Nova Hdz MD; Dr. Timothy Baird DO; Dr. Cira Ku DO; Dr. Vee Chavarria MD Date Dictated: 10/12/2445 Date Transcribed: 10/12/241226 Salvage Repairer: Signed Normal [facility] Emergency Department Summary on 10-11-2024 Emergency Department Summary [facility] Medical Records Department [address] [place] [address] Emergency Department Summary 10/11/24 MR#: [id number] Acct: [id number] Name: BHARATI HILLIARD Rep #: [id number] : 1940 84 From: Zeyad Moe MD PCP: Dr. Cira Ku DO Status:REG ER Location: ED HPI HPI - Fall History of Present Illness Chief Complaint: Fall Narrative Narrative: 84-year-old female past medical history of Takotsubo cardiomyopathy presents status post fall at the flower shop prior to arrival. She states that she fell down a few stairs and hit the back of her head. There was no loss of consciousness she denies any neck pain or chest pain. She states she felt weak, and initially may have had numbness of both legs. Of note, she states that she has had Takotsubo 3 times prior to this. She has had previous heart catheterizations and they have never found any blockage. She states that the left ventricle usually swells and can cause her enzymes to elevate, but with catheterization she has never had arterial occlusion. She complains mainly of a lump on the back of her head, but denies any neck pain, or other injury. She does not take blood thinners. [facility] Medical History Hypothyroidism Elevated troponin Takotsubo cardiomyopathy History of left heart catheterization (08/10/19) Abrasion of knee, bilateral History of uterine cancer Cystadenoma History of supraventricular tachycardia History of coronary vasospasm History of non-ST elevation myocardial infarction (NSTEMI) History of uterine cancer Vitamin D deficiency Essential hypertension Personal history of colonic polyps Jamie's disease Cataract Elevated LFTs Anxiety and depression Psoriasis IBS (irritable bowel syndrome) Home Medications ???Medication ???Instructions ???Recorded ???Last Taken ???Type turmeric 100 mg-sae 150 1 cap PO 11/01/20 Unknown History mg-olive 50 mg-oreg 150 mg-capryl capsule ascorbic acid (vitamin C) 1,000 mg 1 g PO DAILY 12/03/20 Unknown Hi story tablet cholecalciferol (vitamin D3) 50 50 mcg PO DAILY 12/03/20 Unknown H istory mcg (2,000 unit) capsule mecobalamin (vitamin B12) 1,000 1,000 mcg PO DAILY 12/03/20 Unknow n History mcg chewable tablet lactobacillus combination no.9 4 4,000 mmu cells PO DAILY 04/12/21 Unknown History billion cell capsule (Adult 50 Plus Probiotic) selenium 200 mcg tablet 200 mcg PO DAILY 04/12/21 Unknown History metoprolol tartrate 25 mg tablet 12.5 mg (1/2 x 25 mg) PO QHS #45 0 05/09/21 Unknown Rx tabs ascorbic acid 100 mg-elderberry 1 tab PO DAILY 11/06/21 Unknown Hi story fruit 50 mg chewable tablet lorazepam 0.5 mg tablet 0.25 mg PO DAILY PRN anxiety 11/06 Unknown History vitamin B complex (Balanced B-50 1 tab PO DAILY 10/11/24 Unknown Hi story tablet) Allergy/AdvReac Type Severity Reaction Status Date / Time cortisone Allergy Severe Throat Verified 10/11/24 10:58 swelling nitrofurantoin (From Allergy Severe Irregular Verified 10/11/24 10:58 Macrobid) HB, vision changes, diaphoresis erythromycin base Allergy Intermediate Unknown Verified 10/11/24 10:58 meperidine (From Demerol) Allergy Intermediate Unknown Verified 10/11/24 10:58 cyanocobalamin (vitamin B12) Allergy Anaphylaxis Verified 10/11/24 10:58 Iodinated Contrast Media Allergy Rash Verified 10/11/24 10:58 (Iodinated Contrast Media - Oral and) Penicillins Allergy Rash Verified 10/11/24 10:58 Sulfa (Sulfonamide Allergy Rash Verified 10/11/24 10:58 Antibiotics) Family History Father , Age 90 Cancer prostate CAD (coronary artery disease) Pacemaker COPD (chronic obstructive pulmonary disease) Brother CAD (coronary artery disease) CABG x 5 Hypertension Heart disease Mother CAD (coronary artery disease) CABG Heart disease CVA (cerebral vascular accident) Cancer rectal Surgical History History of bilateral cataract extraction History of tonsillectomy History of benign breast tumor History of colonoscopy History of bilateral oophorectomy History of hysterectomy History of section History of appendectomy Social History Smoking Status: Never smoker alcohol intake: never substance use type: does not use caffeine: No what type of physical activity do you participate in: walking and weight training frequency: daily seatbelt use: always do you feel safe at home: Yes additional social history: - retired ROS ROS ED ROS Narrative Review of systems positive for occipital hematoma status post fall. Denies neck pain. No dixon (more content not included)... Normal [facility] Eosinophil percentageOrdered By: Zeyad Moe on 10-11-2024 Eosinophils/100 WBC (Bld) 0.5 % 0-5 [facility] Erythrocyte distribution wid th ratioOrdered By: Zeyad Moe on 10-11-2024 Erythrocyte distribution width (RBC) [Ratio] 12.9 % 11.6-14.6 [facility] Erythrocyte distribution wid th standard deviationOrdered By: Zeyad Moe on 10-11-2024 Erythrocyte distribution width (RBC) [Ratio] 39.9 fl 35.1-43.9 [facility] Glomerular filtration rate ( GFR) estimation/1.73 sq m using serum, plasma, or whole bOrdered By: Zeyad Moe on 10-11-2024 GFR/1.73 sq M.predicted among non-blacks MDRD (S/P/Bld) [Vol rate/Area] 72 mL/min/{1.73_m2} >60 [facility] Comment on above: mL/min/1.73m2 CKD-EP I Creatinine Equation (2020) H AND P Exam - [facility] 10-11-2024 H&P Exam - Hospitalist [facility] Medical Records Department [address] [place] [address] H P Exam - Hospitalist 10/11/24 1413 MR#: [id number] Acct: [id number] Name: BHARATI HILLIARD Rep #: [id number] : 1940 84 From: Timothy Baird DO PCP: Dr. Cira Ku, DO Status:ADM MARYCRUZ Location: [place] [address] HPI - General General Date of Admission: 10/11/24 Date of Service: 10/11/24 Chief Complaint: Fall HPI Narrative BHARATI HILLIARD, is a 84 F who presented to [facility] ED on 10/11/2024 after a fall. Patient lives at home alone, has good functional status of baseline. She was at a flower shop in town this morning when she stepped through a rotting wooden step, which caused her to fall and hit the back of her head. Importantly, medical history is notable for three episodes of Takutsubo cardiomyopathy. Per patient, episodes were in 2008, 2011 and 2019. In the ED EKG showed significant ST elevations in V3-6 so STEMI alert was called. Cardiology evaluated patient at the bedside shortly after. Patient noted mild chest pressure that started in the ED, but stated it was consistent with prior chest pressure that she had with Takotsubo episodes. She was hypertensive and had mild sinus tachycardia, was otherwise stable on room air. Chest x-ray was unremarkable. Troponin trend 10 > 687. Patient discussed with cardiology and noted her prior heart caths have shown clean coronaries, so she is refusing repeat catheterization at this time. However, she is amenable to admission for TTE and trending troponins. Hospitalist was then contacted for admission. I saw the patient at bedside in the ED, son-in-law was present. Patient was sitting back comfortably in bed, conversing normally, in no acute distress. She was alert and oriented x 3. She noted very mild chest pressure currently, improved from earlier this afternoon. Her only other concerns are mild pain in the back of her head where she fell, as well as mild low back pain. Of note, CT brain and C-spine were unremarkable. No point tenderness to palpation in L-spine and good range of motion on exam. She denied any other acute concerns currently. Will be admitted for further management. [facility] Medical History (Updated 10/11/24 @ 15:[address] Timothy Baird, ) Hypothyroidism Elevated troponin Takotsubo cardiomyopathy History of left heart catheterization (08/10/19) Abrasion of knee, bilateral History of uterine cancer Cystadenoma History of supraventricular tachycardia History of coronary vasospasm History of non-ST elevation myocardial infarction (NSTEMI) History of uterine cancer Vitamin D deficiency Essential hypertension Personal history of colonic polyps Jamie's disease Cataract Elevated LFTs Anxiety and depression Psoriasis IBS (irritable bowel syndrome) Home Medications ???Medication ???Instructions ???Recorded ???Last Taken ???Type turmeric 100 mg-sae 150 1 cap PO 11/01/20 Unknown History mg-olive 50 mg-oreg 150 mg-capryl capsule ascorbic acid (vitamin C) 1,000 mg 1 g PO DAILY 12/03/20 Unknown Hi story tablet cholecalciferol (vitamin D3) 50 50 mcg PO DAILY 12/03/20 Unknown H istory mcg (2,000 unit) capsule mecobalamin (vitamin B12) 1,000 1,000 mcg PO DAILY 12/03/20 Unknow n History mcg chewable tablet lactobacillus combination no.9 4 4,000 mmu cells PO DAILY 04/12/21 Unknown History billion cell capsule (Adult 50 Plus Probiotic) selenium 200 mcg tablet 200 mcg PO DAILY 04/12/21 Unknown History metoprolol tartrate 25 mg tablet 12.5 mg (1/2 x 25 mg) PO QHS #45 0 05/09/21 Unknown Rx tabs ascorbic acid 100 mg-elderberry 1 tab PO DAILY 11/06/21 Unknown Hi story fruit 50 mg chewable tablet lorazepam 0.5 mg tablet 0.25 mg PO DAILY PRN anxiety 11/06 Unknown History vitamin B complex (Balanced B-50 1 tab PO DAILY 10/11/24 Unknown Hi story tablet) Allergy/AdvReac Type Severity Reaction Status Date / Time cortisone Allergy Severe Throat Verified 10/11/24 10:58 swelling nitrofurantoin (From Allergy Severe Irregular Verified 10/11/24 10:58 Macrobid) HB, vision changes, diaphoresis erythromycin base Allergy Intermediate Unknown Verified 10/11/24 10:58 meperidine (From Demerol) Allergy Intermediate Unknown Verified 10/11/24 10:58 cyanocobalamin (vitamin B12) Allergy Anaphylaxis Verified 10/11/24 10:58 Iodinated Contrast Media Allergy Rash Verified 10/11/24 10:58 (Iodinated Contrast Media - Oral and) Penicillins Allergy Rash Verified 10/11/24 10:58 Sulfa (Sulfonamide Allergy Rash Verified 10/11/24 10:58 Antibiotics) Family History Father , Age 90 Cancer prostate CAD (coronary artery disease) Pacemaker COPD (chronic obstructive pulmonary disease) (more content not included)... Normal [facility] Hematocrit Auto (Bld) [Volum e fraction]Ordered By: Zeyad Moe on 10-11-2024 Hematocrit (Bld) [Volume fraction] 42.9 % 37-47 [facility] Hemoglobin measurementOrdere d By: Zeyad Moe on 10-11-2024 Hemoglobin (Bld) [Mass/Vol] 14.7 g/dL 12.0-15.0 [facility] Immature granulocytes/100 WB C Auto (Bld)Ordered By: Zeyad Moe on 10-11-2024 Immature granulocytes/100 WBC (Bld) 0.300 % 0.0-0.9 [facility] Comment on above: IG% - Immature Granu locytes (promyelocytes, myelocytes and metamyelocytes) > 1% indicates that a LEFT SHIFT is Present. L501.4021on 10-11-2024 Trop T High Sen 10 ng/L Normal <=14 [facility] Comment on above: Performed By: #### L 501.4021, L100.0100, L500.2500 #### [facility] [place], [address] MCV (mean corpuscular volume ) determinationOrdered By: Zeyad Moe on 10-11-2024 MCV (RBC) [Entitic vol] 86.0 fL 81-99 [facility] Mean corpuscular hemoglobin (MCH) determinationOrdered By: Zeyad Moe on 10-11-2024 MCH (RBC) [Entitic mass] 29.5 pg 27.0-32.0 [facility] Mean corpuscular hemoglobin concentration (MCHC) determinationOrdered By: Zeyad Moe on 10-11-2024 MCHC (RBC) [Mass/Vol] 34.3 g/dL 32-36 [facility] Mean platelet volume determi nationOrdered By: Zeyad Moe on 10-11-2024 Platelet mean volume (Bld) [Entitic vol] 10.5 fL 6.2-12.0 [facility] Monocyte percentageOrdered B y: Zeyad Moe on 10-11-2024 Monocytes/100 WBC (Bld) 9.1 % 0-10 [facility] Natriuretic peptide.B prohor adi N-Terminal [Mass/volume] in Serum or PlasmaOrdered By: Timothy Baird on 10-11-2024 Natriuretic peptide.B prohormone N-Terminal [Mass/Vol] 491 pg/mL <1800 [facility] Comment on above: Heart Failure Unlike ly: < 300 pg/mLHeart Failure Likely< 50 Years: > 450 pg/mL50-75 Years: > 900 pg/mL>75 Years: > 1800 pg/mL Neutrophil percentageOrdered By: Zeyad Moe on 10-11-2024 Neutrophils/100 WBC (Bld) 53.8 % 47-70 [facility] Nucleated red blood cell per centageOrdered By: Zeyad Moe on 10-11-2024 Nucleated RBC/100 WBC (Bld) [Ratio] 0 % 0-5 [facility] Platelet countOrdered By: Kevin Moe on 10-11-2024 Platelets (Bld) [#/Vol] 287 10*3/uL 150-450 [facility] Potassium measurement (mass/ volume)Ordered By: Zeyad Moe on 10-11-2024 Potassium (Unsp spec) [Mass/Vol] 4.6 mmol/L 3.3-5.1 [facility] Pro- Brain NATRIURETIC PEPTI [facility] 10-11-2024 Natriuretic peptide B (Bld) [Mass/Vol] 491 pg/mL Normal <=1800 [facility] Comment on above: Result Comment: Hear t Failure Unlikely: < 300 pg/mL Heart Failure Likely < 50 Years: > 450 pg/mL 50-75 Years: > 900 pg/mL >75 Years: > 1800 pg/mL Performed By: #### L 100.0100, L500.2500 #### [facility] [address] [place], [place], [id number] RBC Auto (Bld) [#/Vol]Ordere d By: Zeyad Moe on 10-11-2024 RBC (Bld) [#/Vol] 4.99 10*6/uL 4.2-5.4 [facility] Serum creatinine measurement (mass/volume)Ordered By: Zeyad Moe on 10-11-2024 Creatinine [Mass/Vol] 0.81 mg/dL 0.70-1.20 [facility] Serum glucose measurement (m ass/volume)Ordered By: Zeyad Moe on 10-11-2024 Glucose [Mass/Vol] 112 mg/dL High 70-99 [facility] Serum or plasma calcium clive urement (mass/volume)Ordered By: Zeyad Moe on 10-11-2024 Calcium [Mass/Vol] 9.8 mg/dL 7.6-11.0 [facility] Serum or plasma urea nitroge n measurement (mass/volume)Ordered By: Zeyad Moe on 10-11-2024 Urea nitrogen [Mass/Vol] 18 mg/dL 4-19 [facility] Sodium levelOrdered By: Zeyad Moe on 10-11-2024 Sodium [Moles/Vol] 132 mmol/L Low 133-145 [facility] Spine Cervical without Contr ason 10-11-2024 Spine Cervical without Contras [facility] Services [address] [place], [place] [address] Spine Cervical without Contras MR#: [id number] Acct: [id number] Name: BHARATI HILLIARD Rep #: [id number] : 1940 F 84 From: Mike Narvaez MD PCP: Dr. Cira Ku, Status: REG ER Study: Spine Cervical without Contras Date of Exam: 0 10/11/24 Exam# [id number] Ordering Dr: Zeyad Moe MD PROCEDURE: SPINE CERVICAL WITHOUT CONTRAS 10/11/2024 REASON FOR EXAM: TRAUMA TECHNIQUE: SPINE CERVICAL WITHOUT CONTRAS Coronal and Sagittal reconstruction series were provided. One or more dose reduction techniques were used (e.g., Automated exposure control, adjustment of the mA and/or kV according to patient size, use of iterative reconstruction technique. RADIATION DOSE SUMMARY: DLP: 997 mGycm COMPARISON: None FINDINGS: There is loss of the lordosis. There is grade 1 retrolisthesis at C4-5, 0.2 cm. There is loss of disc height from C4-7. Visualized skull base and craniocervical junction demonstrate no evidence of fracture or dislocation. There is no evidence of cervical spine fracture. No soft tissue abnormality is seen. Visualized portions of the lung apices demonstrate no evidence of pneumothorax. CT/Spine Cervical without Contras IMPRESSION: There is loss of the lordosis which can be secondary to position or spasm. There is grade 1 retrolisthesis at C4-5, 0.2 cm. There is loss of disc height from C4-7. There is no visible acute traumatic injury. Reading Location: [facility] CC: Dr. Zeyad Moe MD; Dr. Cira Ku DO Salvage Repairer: Signed Normal [facility] TSH DL <= 0.005 mIU/L QnOrde red By: Timothy Baird on 10-11-2024 TSH Qn 2.410 uIU/mL 0.300-4.20 0 [facility] Thyroid Stim Hormone (TSH)on 10-11-2024 TSH 2.410 uIU/mL Normal 0.300-4.20 0 [facility] Comment on above: Performed By: #### L 100.0100, L500.2500 #### [facility] [address] [place], [place], [address] Troponin T HS 2 HRon 025 Trop T High Sen 687 ng/L Invalid Interpretation Code <=14 [facility] Comment on above: Result Comment: Crit ical Result(s) Called at 1347:TO ROBBI by: KCLAPPER??Results read back by same. Performed By: #### L 100.0100, L500.2500 #### [facility] [address] [place], [place], [address] Troponin T HS 4 HRon 025 Trop T High Sen 1573 ng/L Invalid Interpretation Code <=14 [facility] Comment on above: Result Comment: Crit ical Result(s) Called at: 1647 by: FARRAH GILMORE TO WILFREDO PEDRAZA??Results read back by same. Performed By: #### L 100.0100, L500.2500 #### [facility] [address] [place], [address] Troponin T.cardiac [Mass/vol ume] in Serum or Plasma by High sensitivity methodOrdered By: Zeyad Moe on 10-11-2024 Troponin T.cardiac High sensitivity method [Mass/Vol] 1573 ng/L High <14 [facility] Comment on above: Critical Result(s) C alled at: 1647 by: FARRAH GILMORE TO WILFREDO PEDRAZA Results read back by same. Troponin T.cardiac High sensitivity method [Mass/Vol] 687 ng/L High <14 [facility] Comment on above: Critical Result(s) C alled at 1347:TO ROBBI by: CLAUDE Results read back by same. Troponin T.cardiac High sensitivity method [Mass/Vol] 10 ng/L <14 [facility] White blood cell (WBC) count Ordered By: eZyad Moe on 10-11-2024 WBC (Bld) [#/Vol] 7.9 10*3/uL 4.4-11.0 [facility] 07-04-2024 [facility] Telephone ([place]) ----- BHARATI HILLIARD ([id number]) 1940 [facility] Date Time Provider Department 07/04/24 LISSETTE CURIEL During your visit today, we recorded the following information about you: Danika Srivastava 07/04/2024 8:19 AM Signed Patient is having a low pulse at times and wants to discuss her current meds. Please return call to patient as we could not find her a sooner appt. Heidy Ramirez LPN 07/04/2024 4:52 PM Signed Patient called. Verified name and date of . Patient states she has not taken metoprolol tartrate since Thursday night. States her pulse has been running 57-60 through the weekend and had noticed because of feeling more weak. She does report that her equipment is older and she plans to get new however the pulse has been consistently low with both equipment. Patient verbalizes being upset that it has been all day without hearing back from provider and voices displeasure that provider has not returned her call. Aware of staff in clinic and goal is 72 hour turnaround time and aware if she has emergency she is welcome to use emergency room. Patient again states it is unprofessional not to have more immediate return calls. NOA Brumfield Danelle, RN 07/06/2024 3:06 PM Signed Called patient for update. Patient states that she held her metoprolol starting Thursday due to feeling increased fatigue with a HR of 57. She took the metoprolol again on Thursday and has not taken it since. Patient states that vital have been running 124/62 HR 64 138/57 HR 66 Patient states that she took the metoprolol again because she noted that her HR started to increase with activity. From 80s to 90s Patient reassured that vitals are WNL and not a concern on their own. Patient states that she is more concerned about the increased fatigue and asking for instructions regarding how she should take the metoprolol. Patient states that she spoke with her PCP and they suggested that she may be able to decreased her dose to every other day. Patient currently ordered 12.5mg Daily. Patient continued to state that she is concerned that she had not heard anything back with her complaint and she has had 3 heart attacks. Please review and advise PRESTON Vargas Danelle, RN 07/07/2024 10:15 AM Signed I agree your vital signs look appropriate. If your heart rate is in the 50s and 60s had some perfect for low-dose beta-kadi therapy. She should continue the metoprolol 12.5 mg 2 times per day. If her heart rate is less than 40 bpm then we would consider making a medication adjustment. However, given her history of Takotsubo cardiomyopathy she needs to be on low-dose beta-kadi therapy at minimum at least once a day. Ermelinda Medina RN 07/07/2024 10:15 AM Signed Patient called and given below message and instructions. Patient verbalizes understanding and denies questions at this time. Patient instructed to call and notify us if HR decreases below 40 or if fatigue continues. Ermelinda Montilla RN Allergies As of Date: 07/04/2024 Noted Allergy Reaction COBEX 09/01/2008 14 - Other: See Comments Comments: Face and tongue swelled DEMEROL (MEPERIDINE (PF)) 07/13/2012 14 - Other: See Comments Comments: sensitive to this ERTHROMYCIN (ERYTHROMYCIN) 09/01/2008 5 - Intolerance Comments: irritable bowel, nausea iodinated contrast [Other] 09/01/2008 2 - Rash MACROBID (NITROFURANTOIN MONOHYD/*06/04/2010 14 - Other: See Comments Comments: irregular HR, black spots in eyes, and diaphoresis PENICILLINS 05/06/2010 2 - Rash Comments: No reaction to amoxacillin. STEROIDS (CORTICOSTEROIDS (GLUCOC*05/15/2014 12 - Shortness of Breath 14 - Other: See Comments Comments: Throat closed up with cortisone cream SULFA (SULFONAMIDE ANTIBIOTICS) 09/01/2008 2 - Rash Date Reviewed: 01/11/2024 Reviewed by: Lissette Curiel MD - Fully Assessed Reason for Visit: Patient Question [7907] Prescriptions as of 07/07/2024 - MEDICATION, NON-DATABASE reishi once per day - nitroglycerin sublingual (NITROQUICK) 0.4 mg SL tablet Dissolve 1 tablet under the tongue as needed. For Chest Pain. If No Relief CALL 911 - LORazepam (ATIVAN) 0.5 mg Take 0.5 mg by mouth once daily as needed. - metoprolol tartrate, short acting, (LOPRESSOR) 25 mg tablet Take 0.5 tablets by mouth twice daily. For rapid heart rates - selenium 200 mcg tab Take 1 tablet by mouth once daily. - ascorbic acid, vitamin C, (VITAMIN C) 500 mg tablet Take 500 mg by mouth once daily. - Cholecalciferol, Vitamin D3, (VITAMIN D) 1,000 unit tab Take 1,000 Units by mouth once daily. - CYANOCOBALAMIN, VITAMIN B-12, (VITAMIN B-12 ORAL) Take by mouth. - LACTOBACILLUS COMBO NO.6 (PROBIOTIC COMPLEX ORAL) Take by mouth once daily. Pre Probiotic daily Problem List As Of Date 07/04/2024 Noted Resolved Coronary Vasospa (more content not included)... Normal [facility] CNOVon 01-11-2024 CNOV Office Visit (CAWSTR ) ----- BHARATI HILLIARD ([id number]) 1940 [facility] Date Time Provider Department 01/11/24 11:00 AM LISSETTE CURIEL [facility] During your visit today, we recorded the following information about you: Pulse Blood pressure Weight 85/minute 128/74 46.7 kg Lissette Curiel MD 01/11/2024 12:16 PM Signed [facility] Cardiology ([facility]) [address] [id number] OUTPATIENT VISIT DATE 01/11/2024 PRIMARY CARE PHYSICIAN: Cira Ku DO ([facility]) [address] [place] [address] HISTORY OF PRESENT ILLNESS: Ms. Hilliard is a 82 year old woman with a history of Takotsubo cardiomyopathy and labile hypertension presents for routine follow-up. Patient continues to do extremely well from a functional standpoint. She goes to the gym 3 to 4 days a week. She has not had issues with her blood pressure since her last visit. She had 1 episode where diastolics are elevated which she thinks may be secondary to a supplement that she had used. She has not had symptoms of chest pain, chest pressure, palpitations, lightheadedness, dizziness, or syncope. PAST MEDICAL HISTORY Diagnosis Date Anxiety state, unspecified Coronary artery disease Diarrhea Diffuse cystic mastopathy fibercystic beast disease Endometrial cancer ([facility]) 04/30/2016 Heart attack ([facility]) 11/16/2020 Hypertension Hypothyroidism Irritable bowel syndrome Loss of weight Other psoriasis PMH - PAST MEDICAL HISTORY OF vitamin B12 deficiency PMH - PAST MEDICAL HISTORY OF 07/2007 right ovarian cyst removed, benign PMH - PAST MEDICAL HISTORY OF 08/2004 heart problems, [place] Solitary cyst of breast SVT (supraventricular tachycardia) ([facility]) 08/08/2010 Unspecified cataract x2 Unspecified congenital anomaly of heart mvp PAST SURGICAL HISTORY Procedure Laterality Date APPENDECTOMY 07/25/2007 DELIVERY ONLY 02/24/1976 , low transverse COLONOSCOPY FLX DX W/COLLJ SPEC WHEN PFRMD Colonoscopy x 2 COLONOSCOPY FLX DX W/COLLJ SPEC WHEN PFRMD 09/14/2012 Colonoscopy PAST SURGICAL HISTORY OF cyst frm breast left, benign PAST SURGICAL HISTORY OF 07/25/2007 oophorectomy bilateral REMV CATARACT EXTRACAP,INSERT LENS Bilateral 04/23 and 05/07 SOCIAL HISTORY Social History Tobacco Use Smoking status: Never Smokeless tobacco: Never Vaping Use Vaping status: Never Used Substance Use Topics Alcohol use: No Drug use: No FAMILY HISTORY Problem Relation Age of Onset Colon Cancer Mother chemo and radiation Coronary Artery Disease Mother Hypertension Mother Prostate Cancer Father Coronary Artery Disease Father age 90 of lung disease Coronary Artery Disease Brother asthma other (crohns disease) Daughter ALLERGIES: ALLERGIES Allergen Reactions Cobex Other: See Comments Face and tongue swelled Demerol [Meperidine* Other: See Comments sensitive to this Erthromycin [Erythr* Intolerance irritable bowel, nausea Iodinated Contrast * Rash Macrobid [Nitrofura* Other: See Comments irregular HR, black spots in eyes, and diaphoresis Penicillins Rash No reaction to amoxacillin. Steroids [Corticost* Shortness of Breath, Other: See Comments Throat closed up with cortisone cream Sulfa (Sulfonamide * Rash MEDICATIONS: nitroglycerin sublingual (NITROQUICK) 0.4 mg SL tablet Dissolve 1 tablet under the tongue as needed. For Chest Pain. If No Relief CALL 911 LORazepam (ATIVAN) 0.5 mg Take 0.5 mg by mouth once daily as needed. metoprolol tartrate, short acting, (LOPRESSOR) 25 mg tablet Take 0.5 tablets by mouth twice daily. For rapid heart rates selenium 200 mcg tab Take 1 tablet by mouth once daily. ascorbic acid, vitamin C, (VITAMIN C) 500 mg tablet Take 500 mg by mouth once daily. Cholecalciferol, Vitamin D3, (VITAMIN D) 1,000 unit tab Take 1,000 Units by mouth once daily. CYANOCOBALAMIN, VITAMIN B-12, (VITAMIN B-12 ORAL) Take by mouth. LACTOBACILLUS COMBO NO.6 (PROBIOTIC COMPLEX ORAL) Take by mouth once daily. Pre Probiotic daily MEDICATION, NON-DATABASE reishi once per day REVIEW OF SYSTEMS: Review of Systems Constitutional: Negative for chills, fever, malaise/fatigue and weight loss. HENT: Negative for hearing loss and sore throat. Eyes: Negative for blurred vision and double vision. Respiratory: Negative. Cardiovascular: Negative. Gastrointestinal: Negative. Genitourinary: Negative for dysuria, frequency, hematuria and urgency. Musculoskeletal: Negative. Skin: Negative. Neurological: Negative for dizziness, seizures, loss of consciousness, weakness and headaches. Endo/Heme/Allergies: Negative for environmental allergies. Does not bruise/bleed easily. Psychiatric/Behavioral: Negative for dep (more content not included)... Normal [facility] Culture, urineOrdered By: St gaetano Delatorre on 01-05-2023 Bacteria identified Cx Nom (U) Positive [facility] - Chemistry and C hemistry - challengeon 01-05-2023 Bilirubin Ql (U) Negative [facility] Glucose Ql (U) Negative [facility] Ketones Ql (U) Trace (5) [facility] pH (U) 7.5 [pH] [facility] Specific gravity (U) [Rel density] 1.010 [facility] Urobilinogen (U) [Mass/Vol] Negative [facility] - Hematology and Cell countson 01-05-2023 Hemoglobin Ql (U) Trace [facility] - Specimen inform ationon 01-05-2023 Clarity (U) Cloudy [facility] Color (U) Jacklyn [facility] - Urinalysison Nitrite Ql (U) Negative [facility] Protein Ql (U) Negative [facility] No Panel Informationon 01-05 Urine Leukocytes Positive [facility] Urine Non-Hemolyzed Blood Non-Hemolyzed [facility] HgA1C , Office ([id number])Ordere d By: Amol Michel on 06-26-2022 HbA1c (Bld) [Mass fraction] 5.9 % Normal 4.6 - 7.1 [facility]; [facility] Work Phone: CALCIFIDIOL ([id number]) VIT D 25 Ordered By: Bag Machine Operator on 06-19-2022 25-hydroxyvitamin D [Mass/Vol] 101.0 ng/mL Abnormal 30.0-100.0 [facility]; [facility] Work Phone: CBC W/AUTO DIFF WBC ([id number])O rdered By: Bag Machine Operator on 06-19-2022 Basophils (Bld) [#/Vol] 0.1 10*3/uL Normal 0.0-0.2 [facility]; [facility] Work Phone: Basophils/100 WBC (Bld) 1 % Normal [facility]; [facility] Work Phone: Eosinophils (Bld) [#/Vol] 0.1 10*3/uL Normal 0.0-0.4 [facility]; [facility] Work Phone: Eosinophils/100 WBC (Bld) 2 % Normal [facility]; [facility] Work Phone: Erythrocyte distribution width (RBC) [Ratio] 12.4 % Normal 11.7-15.4 [facility]; [facility] Work Phone: Hematocrit (Bld) [Volume fraction] 42.6 % Normal 34.0-46.6 [facility]; [facility] Work Phone: Hemoglobin (Bld) [Mass/Vol] 14.2 g/dL Normal 11.1-15.9 [facility]; [facility] Work Phone: Immature granulocytes (Bld) [#/Vol] 0.0 10*3/uL Normal 0.0-0.1 [facility]; [facility] Work Phone: Immature granulocytes/100 WBC (Bld) 0 % Normal [facility]; [facility] Work Phone: Lymphocytes (Bld) [#/Vol] 2.4 10*3/uL Normal 0.7-3.1 [facility]; [facility] Work Phone: Lymphocytes/100 WBC (Bld) 40 % Normal [facility]; [facility] Work Phone: MCH (RBC) [Entitic mass] 29.3 pg Normal 26.6-33.0 [facility]; [facility] Work Phone: MCHC (RBC) [Mass/Vol] 33.3 g/dL Normal 31.5-35.7 [facility] prehensive [facility]; [facility] Work Phone: MCV (RBC) [Entitic vol] 88 fL Normal 79-97 [facility]; [facility] Work Phone: Monocytes (Bld) [#/Vol] 0.6 10*3/uL Normal 0.1-0.9 [facility]; [facility] Work Phone: Monocytes/100 WBC (Bld) 10 % Normal [facility]; [facility] Work Phone: Neutrophils (Bld) [#/Vol] 2.7 10*3/uL Normal 1.4-7.0 [facility]; [facility] Work Phone: Neutrophils/100 WBC (Bld) 47 % Normal [facility]; [facility] Work Phone: Platelets (Bld) [#/Vol] 268 10*3/uL Normal 150-450 [facility]; [facility] Work Phone: RBC (Bld) [#/Vol] 4.85 10*6/uL Normal 3.77-5.28 [facility] ehensive [facility]; [facility] Work Phone: WBC (Bld) [#/Vol] 5.8 10*3/uL Normal 3.4-10.8 Compre hens[facility]; [facility] Work Phone: LIPID PANEL ([id number])Ordered B y: Bag Machine Operator on 06-19-2022 Cholesterol [Mass/Vol] 236 mg/dL Abnormal 100-199 [facility]; [facility] Work Phone: Cholesterol in HDL [Mass/Vol] 87 mg/dL Normal [facility]; [facility] Work Phone: Triglyceride [Mass/Vol] 96 mg/dL Normal 0-149 [facility]; [facility] Work Phone: LIPID PANEL ([id number]) 16 mg/dL Normal 5-40 [facility]; [facility] Work Phone: LIPID PANEL ([id number]) 133 mg/dL Abnormal 0-99 [facility]; [facility] Work Phone: LIPID PANEL ([id number]) 1.5 {ratio} Normal 0.0-3.2 [facility]; [facility] Work Phone: METABOLIC PANEL, COMPREHENSI VE ([id number])Ordered By: Bag Machine Operator on 06-19-2022 Albumin [Mass/Vol] 4.6 g/dL Normal 3.6-4.6 [facility]; [facility] Work Phone: Albumin/Globulin [Mass ratio] 1.9 {ratio} Normal 1.2-2.2 [facility]; [facility] Work Phone: ALP [Catalytic activity/Vol] 82 U/L Normal 44-121 [facility]; [facility] Work Phone: ALT [Catalytic activity/Vol] 25 U/L Normal 0-32 [facility]; [facility] Work Phone: AST [Catalytic activity/Vol] 29 U/L Normal 0-40 [facility]; [facility] Work Phone: Bilirubin [Mass/Vol] 0.6 mg/dL Normal 0.0-1.2 [facility]; [facility] Work Phone: Calcium [Mass/Vol] 9.6 mg/dL Normal 8.7-10.3 [facility]; [facility] Work Phone: Chloride [Moles/Vol] 95 mmol/L Abnormal 96-106 [facility] rehensive [facility]; [facility] Work Phone: CO2 [Moles/Vol] 24 mmol/L Normal 20-29 [facility]; [facility] Work Phone: Creatinine [Mass/Vol] 0.84 mg/dL Normal 0.57-1.00 [facility] prehensive [facility]; [facility] Work Phone: Globulin (S) [Mass/Vol] 2.4 g/dL Normal 1.5-4.5 [facility]; [facility] Work Phone: Glucose [Mass/Vol] 104 mg/dL Abnormal 70-99 [facility]; [facility] Work Phone: Potassium [Moles/Vol] 4.2 mmol/L Normal 3.5-5.2 [facility] prehensive [facility]; [facility] Work Phone: Protein [Mass/Vol] 7.0 g/dL Normal 6.0-8.5 [facility]; [facility] Work Phone: Sodium [Moles/Vol] 134 mmol/L Normal 134-144 [facility]; [facility] Work Phone: Urea nitrogen [Mass/Vol] 20 mg/dL Normal 8-27 [facility]; [facility] Work Phone: Urea nitrogen/Creatinine [Mass ratio] 24 mg/mg Normal 12-28 [facility]; [facility] Work Phone: METABOLIC PANEL, COMPREHENSIVE ([id number]) 70 mL/min/1.73 Normal [facility] brianne [facility]; [facility] Work Phone: T3, TOTAL (TRIDOTHYRONINE) ( [id number])Ordered By: Bag Machine Operator on 06-19-2022 T3 [Mass/Vol] 164 ng/dL Normal 71-180 [facility]; [facility] Work Phone: T4, TOTAL ([id number])Ordered By: Bag Machine Operator on 06-19-2022 T4 [Mass/Vol] 9.8 ug/dL Normal 4.5-12.0 Comprehensi [facility]; [facility] Work Phone: TSH ([id number])Ordered By: Theo m Certified [employer] on 06-19-2022 TSH Qn 5.100 {uIU/mL} Abnormal 0.450-4.50 0 [facility]; [facility] Work Phone: VITAMIN B-12 (CYANOCOBALAMIN ) ([id number])Ordered By: Bag Machine Operator on 06-19-2022 Cobalamin (Vitamin B12) [Mass/Vol] 731 pg/mL Normal 232-1245 [facility]; [facility] Work Phone: CALCIFEDIOL ([id number])Ordered B y: Bag Machine Operator on 10-11-2021 25-hydroxyvitamin D [Mass/Vol] 94.9 ng/mL Normal 30.0-100.0 [facility]; [facility] Work Phone: CBC W/AUTO DIFF WBC ([id number])O rdered By: Bag Machine Operator on 10-11-2021 Basophils (Bld) [#/Vol] 0.0 10*3/uL Normal 0.0-0.2 [facility]; [facility] Work Phone: Basophils/100 WBC (Bld) 1 % Normal [facility]; [facility] Work Phone: Eosinophils (Bld) [#/Vol] 0.1 10*3/uL Normal 0.0-0.4 [facility]; [facility] Work Phone: Eosinophils/100 WBC (Bld) 1 % Normal [facility]; [facility] Work Phone: Erythrocyte distribution width (RBC) [Ratio] 12.8 % Normal 11.7-15.4 [facility]; [facility] Work Phone: Hematocrit (Bld) [Volume fraction] 43.1 % Normal 34.0-46.6 [facility]; [facility] Work Phone: Hemoglobin (Bld) [Mass/Vol] 14.2 g/dL Normal 11.1-15.9 [facility]; [facility] Work Phone: Immature granulocytes (Bld) [#/Vol] 0.0 10*3/uL Normal 0.0-0.1 [facility]; [facility] Work Phone: Immature granulocytes/100 WBC (Bld) 0 % Normal [facility]; [facility] Work Phone: Lymphocytes (Bld) [#/Vol] 2.3 10*3/uL Normal 0.7-3.1 [facility]; [facility] Work Phone: Lymphocytes/100 WBC (Bld) 41 % Normal [facility]; [facility] Work Phone: MCH (RBC) [Entitic mass] 29.3 pg Normal 26.6-33.0 [facility]; [facility] Work Phone: MCHC (RBC) [Mass/Vol] 32.9 g/dL Normal 31.5-35.7 [facility] pre[facility]ive [facility]; [facility] Work Phone: MCV (RBC) [Entitic vol] 89 fL Normal 79-97 [facility]; [facility] Work Phone: Monocytes (Bld) [#/Vol] 0.5 10*3/uL Normal 0.1-0.9 [facility]; [facility] Work Phone: Monocytes/100 WBC (Bld) 8 % Normal [facility]; [facility] Work Phone: Neutrophils (Bld) [#/Vol] 2.8 10*3/uL Normal 1.4-7.0 [facility]; [facility] Work Phone: Neutrophils/100 WBC (Bld) 49 % Normal [facility]; [facility] Work Phone: Platelets (Bld) [#/Vol] 264 10*3/uL Normal 150-450 [facility]; [facility] Work Phone: RBC (Bld) [#/Vol] 4.85 10*6/uL Normal 3.77-5.28 [facility] ehensive [facility]; [facility] Work Phone: WBC (Bld) [#/Vol] 5.7 10*3/uL Normal 3.4-10.8 [facility]; [facility] Work Phone: FREE TRIIDOTHYRONINE (T3) ([phone])Ordered By: Bag Machine Operator on 10-11-2021 Free T3 [Mass/Vol] 3.6 pg/mL Normal 2.0-4.4 [facility]; [facility] Work Phone: LIPID PANEL ([id number])Ordered B y: Bag Machine Operator on 10-11-2021 Cholesterol [Mass/Vol] 225 mg/dL Abnormal 100-199 [facility]; [facility] Work Phone: Cholesterol in HDL [Mass/Vol] 88 mg/dL Normal [facility]; [facility] Work Phone: Triglyceride [Mass/Vol] 84 mg/dL Normal 0-149 [facility]; [facility] Work Phone: LIPID PANEL ([id number]) 14 mg/dL Normal 5-40 [facility]; [facility] Work Phone: LIPID PANEL ([id number]) 123 mg/dL Abnormal 0-99 [facility]; [facility] Work Phone: LIPID PANEL ([id number]) 1.4 {ratio} Normal 0.0-3.2 [facility]; [facility] Work Phone: METABOLIC PANEL, COMPREHENSI VE ([id number])Ordered By: Bag Machine Operator on 10-11-2021 Albumin [Mass/Vol] 4.4 g/dL Normal 3.7-4.7 [facility]; [facility] Work Phone: Albumin/Globulin [Mass ratio] 1.9 {ratio} Normal 1.2-2.2 [facility]; [facility] Work Phone: ALP [Catalytic activity/Vol] 94 U/L Normal 44-121 [facility]; [facility] Work Phone: ALT [Catalytic activity/Vol] 31 U/L Normal 0-32 [facility]; [facility] Work Phone: AST [Catalytic activity/Vol] 33 U/L Normal 0-40 [facility]; [facility] Work Phone: Bilirubin [Mass/Vol] 0.5 mg/dL Normal 0.0-1.2 [facility]; [facility] Work Phone: Calcium [Mass/Vol] 9.3 mg/dL Normal 8.7-10.3 [facility]; [facility] Work Phone: Chloride [Moles/Vol] 95 mmol/L Abnormal 96-106 [facility]; [facility] Work Phone: CO2 [Moles/Vol] 26 mmol/L Normal 20-29 [facility]; [facility] Work Phone: Creatinine [Mass/Vol] 0.78 mg/dL Normal 0.57-1.00 [facility]; [facility] Work Phone: Globulin (S) [Mass/Vol] 2.3 g/dL Normal 1.5-4.5 [facility]; [facility] Work Phone: Glucose [Mass/Vol] 96 mg/dL Normal 65-99 [facility]; [facility] Work Phone: Potassium [Moles/Vol] 4.5 mmol/L Normal 3.5-5.2 [facility]; [facility] Work Phone: Protein [Mass/Vol] 6.7 g/dL Normal 6.0-8.5 [facility]; [facility] Work Phone: Sodium [Moles/Vol] 133 mmol/L Abnormal 134-144 [facility]; [facility] Work Phone: Urea nitrogen [Mass/Vol] 16 mg/dL Normal 8-27 [facility]; [facility] Work Phone: Urea nitrogen/Creatinine [Mass ratio] 21 mg/mg Normal 12-28 [facility]; [facility] Work Phone: METABOLIC PANEL, COMPREHENSIVE ([id number]) 77 mL/min/1.73 Normal [facility]; [facility] Work Phone: MICROALBUMINOrdered By: Syst em Certified [employer] on 10-11-2021 Albumin DL <= 20 mg/L (U) [Mass/Vol] 7.2 ug/mL Normal [facility]; [facility] Work Phone: Albumin/Creatinine (U) [Mass ratio] 9 {mg/g_creat} Normal 0-29 [facility]; [facility] Work Phone: Creatinine (U) [Mass/Vol] 84.0 mg/dL Normal [facility]; [facility] Work Phone: T4, FREE (THYROXINE) ([id number]) Ordered By: Bag Machine Operator on 10-11-2021 Free T4 [Mass/Vol] 1.39 ng/dL Normal 0.82-1.77 Compre hensive [facility]; [facility] Work Phone: TSH (THYROID STIMULATING HOR ADI) ([id number])Ordered By: Bag Machine Operator on 10-11-2021 TSH Qn 4.990 {uIU/mL} Abnormal 0.450-4.50 0 [facility]; [facility] Work Phone: URINALYSIS ([id number])Ordered By : Bag Machine Operator on 10-11-2021 Appearance (U) Clear Normal [facility]; [facility] Work Phone: Bilirubin Ql (U) Negative Normal Comprehe nsive [facility]; [facility] Work Phone: Color (U) Yellow Normal [facility]; [facility] Work Phone: Glucose Ql (U) Negative Normal Comprehens brianne [facility]; [facility] Work Phone: Hemoglobin Ql (U) Negative Normal Compreh ensive [facility]; [facility] Work Phone: Ketones Ql (U) Negative Normal Comprehens [facility]; [facility] Work Phone: Leukocyte esterase Test strip Ql (U) Negative Normal [facility]; [facility] Work Phone: Microscopic observation LM Nom (Urine sed) MICNIP Normal [facility]; [facility] Work Phone: Nitrite Ql (U) Negative Normal [facility]prehens [facility]; [facility] Work Phone: pH (U) 7.0 [pH] Normal 5.0-7.5 [facility]; [facility] Work Phone: Protein Ql (U) Trace Normal Comprehens [facility]; [facility] Work Phone: Specific gravity (U) [Rel density] 1.016 1 Normal 1.005-1.03 0 [facility]; [facility] Work Phone: Urobilinogen (U) [Mass/Vol] 0.2 mg/dL Normal 0.2-1.0 [facility]; [facility] Work Phone: Laboratory - Microbiology an d Antimicrobial susceptibilityon 07-16-2021 S. pyogenes Ag Ql (Throat) [facility] Work Phone: SARS-CoV-2 (COVID-19) RNA TONO+probe Ql (Unsp spec) Not detected [facility] Work Phone: No Panel Informationon 07-16 Influenza Types A,B Rapid (Clinic) Not detected [facility] Work Phone: Microscopic observation Gram stain Nom (Vag fld)on 05-23-2021 Bacterial Vaginosis BACTERIAL VAGINOSIS RESULT: Stain results indicate mixed morphotypes consistent with transition from normal vaginal colby. Abnormal [facility] Bacterial Vaginosis No Yeast observed Abnormal [facility] Bacterial Vaginosis No Polymorphonuclear Leukocytes Abnormal [facility] URINE HUONG CULTURE-IDENTIFICA [place] (56976)Ordered By: Bag Machine Operator on 04-24-2021 Bacteria identified Cx Nom (U) Final report Normal [facility]; [facility] Work Phone: Comment on above: PATIENT NOT FASTINGP ERFORMED BY: LabcoVirtua VoorheesLghavv2065 [facility] [id number] Information: SRC:UC Bacteria identified Cx Nom (U) MUG Normal [facility]; [facility] Work Phone: Comment on above: Mixed urogenital garima ra500 Colonies/mL PATIENT NOT FASTINGP ERFORMED BY: ROSA MARIA [facility] Pzpcac4396 Darian [facility] Centershyanne [place] [id number] Information: SRC: Urinalysis, Office ([id number])Or dered By: Earnestine Claudio on 04-24-2021 Bilirubin Ql (U) Negative Normal Comprehe nsive Internal Medicine; [facility] Work Phone: Glucose Test strip (U) [Mass/Vol] Negative Normal [facility]; [facility] Work Phone: Hemoglobin Ql (U) Negative Normal Compreh ensive Internal Medicine; [facility] Work Phone: Ketones Ql (U) Negative Normal Comprehens [facility]; [facility] Work Phone: Leukocyte esterase Test strip Ql (U) Negative Normal [facility]; [facility] Work Phone: Nitrite Ql (U) Negative Normal [facility]; [facility] Work Phone: pH (U) 6 [pH] Abnormal [facility]; [facility] Work Phone: Protein Ql (U) Negative Normal Comprehens [facility]; [facility] Work Phone: Specific gravity (U) [Rel density] 1.015 1 Normal [facility]; [facility] Work Phone: Urobilinogen (24H U) [Mass/Time] 2 mg/dL Normal [facility]; [facility] Work Phone: 2018 Novel Coronavirus (COVI D-19), TONO (06469)Ordered By: Bag Machine Operator on 10-22-20202018 Novel Coronavirus (COVID-19), TONO (38134) Not detected Normal [facility]; [facility] Work Phone: Comment on above: This nucleic acid am plification test was developed and its performancecharacteristics determined by [employer]. Nucleic acidamplification tests include RT-PCR and TMA. This test has not beenFDA cleared or approved. This test has been authorized by FDA underan Emergency Use Authorization (EUA). This test is only authorizedfor the duration of time the declaration that circumstances existjustifying the authorization of the emergency use of in vitrodiagnostic tests for detection of SARS-CoV-2 virus and/or diagnosisof COVID-19 infection under section 564(b)(1) of the Act, 21 U.S.C.360bbb-3(b) (1), unless the authorization is terminated or revokedsooner.When diagnostic testing is negative, the possibility of a falsenegative result should be considered in the context of a patient'srecent exposures and the presence of clinical signs and symptomsconsistent with COVID-19. An individual without symptoms of COVID-19and who is not shedding SARS-CoV-2 virus would expect to have anegative (not detected) result in this assay. PERFORMED BY: servtag WKH5400 [facility] [id number] Anti TPO Antibody ([id number])Ord ered By: Bag Machine Operator on 05-10-2020 TPO Ab Qn 107 {IU/mL} Abnormal 0-34 [facility]; [facility] Work Phone: Comment on above: PATIENT NOT FASTINGP ERFORMED BY: Notch70 Vertical KnowledgeSentara Albem[facility]le [facility] Center [id number] BY: [employer] [id number] TPO Ab Qn 107 [IU]/mL Abnormal 0-34 [facility]; [facility] Work Phone: Comment on above: PATIENT NOT FASTINGP ERFORMED BY: [employer]6370 Synchronicity.coFormerly [facility] [id number] BY: [employer] [address] [id number] REVERSE TRIIDOTHYRONINE ([id number] 31)Ordered By: Bag Machine Operator on 05-10-2020 T3.reverse [Mass/Vol] 16.2 ng/dL Normal 9.2-24.1 [facility] prehensive Internal Medicine; [facility] Work Phone: Comment on above: This test was develo ped and its performance characteristicsdetermined by [employer]. It has not been cleared or approvedby the Food and Drug Administration. PATIENT NOT FASTINGP ERFORMED BY: Eyebrid BlazeChildren'S Hospital Of Michigan6370 [facility] [id number] BY: [address] [id number] T3, FREE (TRIDOTHYRONINE) ([id number])Ordered By: Bag Machine Operator on 05-10-2020 Free T3 [Mass/Vol] 3.5 pg/mL Normal 2.0-4.4 [facility]; [facility] Work Phone: Comment on above: PATIENT NOT FASTINGP ERFORMED BY: Red Loop MediaVirtua VoorheesRdujkc7021 [facility] [id number] BY: [employer]aze[address] [id number] T4, FREE (THYROXINE) (69089) Ordered By: Bag Machine Operator on 05-10-2020 Free T4 [Mass/Vol] 1.48 ng/dL Normal 0.82-1.77 [facility]; [facility] Work Phone: Comment on above: PATIENT NOT FASTINGP ERFORMED BY: Red Loop MediaVirtua VoorheesJajxvt5023 [facility] [id number] BY: [facility]–Barry RoadTaaz[address] [id number] TSH ([id number])Ordered By: Bonfire[employer]come m [employer] on 05-10-2020 TSH Qn 6.380 {uIU/mL} Abnormal 0.450-4.50 0 [facility]; [facility] Work Phone: Comment on above: PATIENT NOT FASTINGP ERFORMED BY: Red Loop MediaVirtua VoorheesEnrdjq5757 [facility] [id number] BY: [address] [id number] 2019 Novel Coronavirus (COVI D-19), TONO (91487)Ordered By: Bag Machine Operator on 05-04-20202018 Novel Coronavirus (COVID-19), TONO (26171) Not Detected Normal [facility]; [facility] Work Phone: Comment on above: This nucleic acid am plification test was developed and its performancecharacteristics determined by [employer]. Nucleic acidamplification tests include RT-PCR and TMA. This test has not beenFDA cleared or approved. This test has been authorized by FDA underan Emergency Use Authorization (EUA). This test is only authorizedfor the duration of time the declaration that circumstances existjustifying the authorization of the emergency use of in vitrodiagnostic tests for detection of SARS-CoV-2 virus and/or diagnosisof COVID-19 infection under section 564(b)(1) of the Act, 21 U.S.C.360bbb-3(b) (1), unless the authorization is terminated or revokedsooner.When diagnostic testing is negative, the possibility of a falsenegative result should be considered in the context of a patient'srecent exposures and the presence of clinical signs and symptomsconsistent with COVID-19. An individual without symptoms of COVID-19and who is not shedding SARS-CoV-2 virus would expect to have anegative (not detected) result in this assay. PATIENT NOT FASTINGP ERFORMED BY: [facility] Ufcvusqgbf1632 [facility] [place] [id number] 2018 Novel Coronavirus (COVID-19), TONO (98203) Not detected Normal [facility]; [facility] Work Phone: Comment on above: This nucleic acid am plification test was developed and its performancecharacteristics determined by [employer]. Nucleic acidamplification tests include RT-PCR and TMA. This test has not beenFDA cleared or approved. This test has been authorized by FDA underan Emergency Use Authorization (EUA). This test is only authorizedfor the duration of time the declaration that circumstances existjustifying the authorization of the emergency use of in vitrodiagnostic tests for detection of SARS-CoV-2 virus and/or diagnosisof COVID-19 infection under section 564(b)(1) of the Act, 21 U.S.C.360bbb-3(b) (1), unless the authorization is terminated or revokedsooner.When diagnostic testing is negative, the possibility of a falsenegative result should be considered in the context of a patient'srecent exposures and the presence of clinical signs and symptomsconsistent with COVID-19. An individual without symptoms of COVID-19and who is not shedding SARS-CoV-2 virus would expect to have anegative (not detected) result in this assay. PATIENT NOT FASTINGP ERFORMED BY: [employer] Central Pgphlagiru7788 Sift ScienceRock Cave [place] [id number] CBC W/AUTO DIFF WBC ([id number])O rdered By: Bag Machine Operator on 03-01-2020 Basophils (Bld) [#/Vol] 0.1 {x10E3/uL} Normal 0.0-0.2 [facility]; [facility] Work Phone: Comment on above: PATIENT WAS FASTINGP ERFORMED BY: LabCo Jfwwyw7051 [address] TicketFireSentara Albemarle Medical Center [id number] Basophils (Bld) [#/Vol] 0.1 10*3/uL Normal 0.0-0.2 [facility]; [facility] Work Phone: Comment on above: PATIENT WAS FASTINGP ERFORMED BY: LabTaaz Plkslc5322 [address] TicketFireFrye Regional Medical Centerin [place] [id number] Basophils/100 WBC (Bld) 1 % Normal [facility]; [facility] Work Phone: Comment on above: PATIENT WAS FASTINGP ERFORMED BY: [employer]Co Ekdjus5207 [address] TicketFireSentara Albemarle Medical Center [id number] Eosinophils (Bld) [#/Vol] 0.1 {x10E3/uL} Normal 0.0-0.4 [facility]; [facility] Work Phone: Comment on above: PATIENT WAS FASTINGP ERFORMED BY: LabTaaz Wkmdvj6219 [facility] [id number] Eosinophils (Bld) [#/Vol] 0.1 10*3/uL Normal 0.0-0.4 [facility]; [facility] Work Phone: Comment on above: PATIENT WAS FASTINGP ERFORMED BY: ROSA MARIA [facility] Dswhai8099 Farmer Roadblin [place] [id number] Eosinophils/100 WBC (Bld) 2 % Normal [facility]; [facility] Work Phone: Comment on above: PATIENT WAS FASTINGP ERFORMED BY: CB [facility] Hsqfef5024 [address] [facility] Centerin [place] [id number] Erythrocyte distribution width (RBC) [Ratio] 12.5 % Normal 11.7-15.4 [facility]; [facility] Work Phone: Comment on above: PATIENT WAS FASTINGP ERFORMED BY: ROSA MARIA [facility] Jctbbx8227 [address] [facility] Centerin [place] [id number] Hematocrit (Bld) [Volume fraction] 41.4 % Normal 34.0-46.6 [facility]; [facility] Work Phone: Comment on above: PATIENT WAS FASTINGP ERFORMED BY: [facility] Brgutj4406 Farmer RoadFrye Regional Medical Centerin [place] [id number] Hemoglobin (Bld) [Mass/Vol] 13.1 g/dL Normal 11.1-15.9 [facility]; [facility] Work Phone: Comment on above: PATIENT WAS FASTINGP ERFORMED BY: CB [facility] Ieijrd9903 Farmer RoadFrye Regional Medical Centerin [place] [id number] Immature granulocytes (Bld) [#/Vol] 0.0 {x10E3/uL} Normal 0.0-0.1 [facility]; [facility] Work Phone: Comment on above: PATIENT WAS FASTINGP ERFORMED BY: CB [facility] Psighz2149 Farmer RoadDublin [place] [id number] Immature granulocytes (Bld) [#/Vol] 0.0 10*3/uL Normal 0.0-0.1 [facility]; [facility] Work Phone: Comment on above: PATIENT WAS FASTINGP ERFORMED BY: CB [facility] Ruecuv3204 Farmer RoadFormerly [facility] [id number] Immature granulocytes/100 WBC (Bld) 0 % Normal [facility]; [facility] Work Phone: Comment on above: PATIENT WAS FASTINGP ERFORMED BY: ROSA MARIA ElderDianne Qqictg3764 [facility] [id number] Lymphocytes (Bld) [#/Vol] 2.5 {x10E3/uL} Normal 0.7-3.1 [facility]; [facility] Work Phone: Comment on above: PATIENT WAS FASTINGP ERFORMED BY: ROSA MARIA [place] 2849870 [facility] [id number] Lymphocytes (Bld) [#/Vol] 2.5 10*3/uL Normal 0.7-3.1 [facility]; [facility] Work Phone: Comment on above: PATIENT WAS FASTINGP ERFORMED BY: ROSA MARIA [facility] Hospitalnettie MontgomeryEplzeq6620 [facility] [id number] Lymphocytes/100 WBC (Bld) 47 % Normal [facility]; [facility] Work Phone: Comment on above: PATIENT WAS FASTINGP ERFORMED BY: ROSA MARIA [facility] Kumwne0675 [facility] [id number] MCH (RBC) [Entitic mass] 28.5 pg Normal 26.6-33.0 [facility]; [facility] Work Phone: Comment on above: PATIENT WAS FASTINGP ERFORMED BY: ROSA MARIA [place] 2849870 [facility] [id number] MCHC (RBC) [Mass/Vol] 31.6 g/dL Normal 31.5-35.7 [facility] prehensive Internal Medicine; [facility] Work Phone: Comment on above: PATIENT WAS FASTINGP ERFORMED BY: ROSA MARIA LabChildren'S Hospital Of Michigan6370 [facility] [id number] MCV (RBC) [Entitic vol] 90 fL Normal 79-97 [facility]; [facility] Work Phone: Comment on above: PATIENT WAS FASTINGP ERFORMED BY: ROSA MARIA [place] 2849870 [facility] Centerblin [place] [id number] Monocytes (Bld) [#/Vol] 0.6 {x10E3/uL} Normal 0.1-0.9 [facility]; [facility] Work Phone: Comment on above: PATIENT WAS FASTINGP ERFORMED BY: ROSA MARIA Darin Bell6[address] RoadDublin [place] [id number] Monocytes (Bld) [#/Vol] 0.6 10*3/uL Normal 0.1-0.9 [facility]; [facility] Work Phone: Comment on above: PATIENT WAS FASTINGP ERFORMED BY: ROSA MARIA Janetnettie MontgomeryMzysah0951 Farmer RoadDublin [place] [id number] Monocytes/100 WBC (Bld) 11 % Normal [facility]; [facility] Work Phone: Comment on above: PATIENT WAS FASTINGP ERFORMED BY: ROSA MARIA Janetnettie MontgomeryUzezsy3850 Farmer RoadDublin [place] [id number] Neutrophils (Bld) [#/Vol] 2.1 {x10E3/uL} Normal 1.4-7.0 [facility]; [facility] Work Phone: Comment on above: PATIENT WAS FASTINGP ERFORMED BY: ROSA MARIA Darin Bell6[address] Roadblin [place] [id number] Neutrophils (Bld) [#/Vol] 2.1 10*3/uL Normal 1.4-7.0 [facility]; [facility] Work Phone: Comment on above: PATIENT WAS FASTINGP ERFORMED BY: ROSA MARIA Janet Vuyrgv6942 Farmer RoadDublin [place] [id number] Neutrophils/100 WBC (Bld) 39 % Normal [facility]; [facility] Work Phone: Comment on above: PATIENT WAS FASTINGP ERFORMED BY: ROSA MARIA Darin Bell6[address] RoadDublin [place] [id number] Platelets (Bld) [#/Vol] 243 {x10E3/uL} Normal 150-450 [facility]; [facility] Work Phone: Comment on above: PATIENT WAS FASTINGP ERFORMED BY: CB [facility] Imbdur0826 [address] RoadDublin [place] [id number] Platelets (Bld) [#/Vol] 243 10*3/uL Normal 150-450 [facility]; [facility] Work Phone: Comment on above: PATIENT WAS FASTINGP ERFORMED BY: CB [facility] Kvlrqn4692 [address] RoadDublin [place] [id number] RBC (Bld) [#/Vol] 4.59 {x10E6/uL} Normal 3.77-5.28 [facility]; [facility] Work Phone: Comment on above: PATIENT WAS FASTINGP ERFORMED BY: CB [facility] Qklreg3054 [address] RoadDublin [place] [id number] RBC (Bld) [#/Vol] 4.59 10*6/uL Normal 3.77-5.28 [facility]erens[facility]; [facility] Work Phone: Comment on above: PATIENT WAS FASTINGP ERFORMED BY: CB [facility] Lfwnva6910 [address] RoadDublin [place] [id number] WBC (Bld) [#/Vol] 5.4 {x10E3/uL} Normal 3.4-10.8 [facility]erens[facility]; [facility] Work Phone: Comment on above: PATIENT WAS FASTINGP ERFORMED BY: CB [facility] Qzfsab2002 [address] RoadDublin [place] [id number] WBC (Bld) [#/Vol] 5.4 10*3/uL Normal 3.4-10.8 [facility]; [facility] Work Phone: Comment on above: PATIENT WAS FASTINGP ERFORMED BY: CB [facility] Gcktee4449 [address] RoadDublin [place] [id number] METABOLIC PANEL, COMPREHENSI VE ([id number])Ordered By: Bag Machine Operator on 03-01-2020 Albumin [Mass/Vol] 4.4 g/dL Normal 3.7-4.7 [facility]; [facility] Work Phone: Comment on above: PATIENT WAS FASTINGP ERFORMED BY: ROSA MARIA Montgomerylin6370 [address] RoadDublin [place] [id number] Albumin/Globulin [Mass ratio] 1.9 {ratio} Normal 1.2-2.2 [facility]; [facility] Work Phone: Comment on above: PATIENT WAS FASTINGP ERFORMED BY: ROSA MARIA Montgomerylin6370 [address] RoadDublin [place] [id number] ALP [Catalytic activity/Vol] 96 [iU]/L Normal 39-117 [facility]; [facility] Work Phone: Comment on above: PATIENT WAS FASTINGP ERFORMED BY: ROSA MARIA Montgomerylin6370 [address] RoadDublin [place] [id number] ALP [Catalytic activity/Vol] 96 U/L Normal 39-117 [facility]; [facility] Work Phone: Comment on above: PATIENT WAS FASTINGP ERFORMED BY: ROSA MARIA Montgomerylin6370 [address] RoadDublin [place] [id number] ALT [Catalytic activity/Vol] 26 [iU]/L Normal 0-32 [facility]; [facility] Work Phone: Comment on above: PATIENT WAS FASTINGP ERFORMED BY: ROSA MARIA Montgomerylin6370 [address] RoadDublin [place] [id number] ALT [Catalytic activity/Vol] 26 U/L Normal 0-32 [facility]; [facility] Work Phone: Comment on above: PATIENT WAS FASTINGP ERFORMED BY: ROSA MARIA Webster Yevqvz5015 [address] RoadDublin [place] [id number] AST [Catalytic activity/Vol] 33 [iU]/L Normal 0-40 [facility]; [facility] Work Phone: Comment on above: PATIENT WAS FASTINGP ERFORMED BY: ROSA MARIA LabDianne MontgomeryTolpuo1074 Farmer RoadDublin [place] [id number] AST [Catalytic activity/Vol] 33 U/L Normal 0-40 [facility]; [facility] Work Phone: Comment on above: PATIENT WAS FASTINGP ERFORMED BY: CB [facility] Dfaudj8866 [address] RoadDublin [place] [id number] Bilirubin [Mass/Vol] 0.8 mg/dL Normal 0.0-1.2 Comp rehensive Internal Medicine; [facility] Work Phone: Comment on above: PATIENT WAS FASTINGP ERFORMED BY: CB [facility] Fzlvwi6895 [address] RoadDublin [place] [id number] Calcium [Mass/Vol] 9.5 mg/dL Normal 8.7-10.3 [facility]; [facility] Work Phone: Comment on above: PATIENT WAS FASTINGP ERFORMED BY: CB [facility] Fbqnpm3418 [address] RoadDublin [place] [id number] Chloride [Moles/Vol] 100 mmol/L Normal 96-106 [facility] rehensive Internal Medicine; [facility] Work Phone: Comment on above: PATIENT WAS FASTINGP ERFORMED BY: [facility] Ofefet5643 [address] RoadDublin [place] [id number] CO2 [Moles/Vol] 25 mmol/L Normal 20-29 [facility]; [facility] Work Phone: Comment on above: PATIENT WAS FASTINGP ERFORMED BY: CB [facility] Fcwcci6618 [address] RoadDublin [place] [id number] Creatinine [Mass/Vol] 0.92 mg/dL Normal 0.57-1.00 [facility] prehensive Internal Medicine; [facility] Work Phone: Comment on above: PATIENT WAS FASTINGP ERFORMED BY: CB [facility] Chbrxg1303 [address] RoadDublin [place] [id number] GFR/1.73 sq M predicted among blacks CKD-EPI (S/P/Bld) [Vol rate/Area] 69 mL/min/1.73 Normal [facility]; [facility] Work Phone: Comment on above: PATIENT WAS FASTINGP ERFORMED BY: CB [facility] Pbcytz0774 [address] RoadDublin [place] [id number] GFR/1.73 sq M predicted among non-blacks CKD-EPI (S/P/Bld) [Vol rate/Area] 60 mL/min/1.73 Normal [facility]; [facility] Work Phone: Comment on above: PATIENT WAS FASTINGP ERFORMED BY: ROSA MARIA LabConettie Wgjqdw0787 [address] RoadDublin [place] [id number] Globulin (S) [Mass/Vol] 2.3 g/dL Normal 1.5-4.5 [facility]; [facility] Work Phone: Comment on above: PATIENT WAS FASTINGP ERFORMED BY: ROSA MARIA [facility] Olxrkk1185 [address] RoadDublin [place] [id number] Glucose [Mass/Vol] 90 mg/dL Normal 65-99 [facility]; [facility] Work Phone: Comment on above: PATIENT WAS FASTINGP ERFORMED BY: ROSA MARIA [facility] Wcxhao8802 Farmer RoadFrye Regional Medical Centerin [place] [id number] Potassium [Moles/Vol] 5.0 mmol/L Normal 3.5-5.2 [facility] prehensive Internal Medicine; [facility] Work Phone: Comment on above: PATIENT WAS FASTINGP ERFORMED BY: ROSA MARIA [facility] Yrssta2494 [address] Roadblin [place] [id number] Protein [Mass/Vol] 6.7 g/dL Normal 6.0-8.5 [facility] Internal [facility]; [facility] Work Phone: Comment on above: PATIENT WAS FASTINGP ERFORMED BY: [facility] Fphgkc2520 [address] RoadDublin [place] [id number] Sodium [Moles/Vol] 139 mmol/L Normal 134-144 [facility]; [facility] Work Phone: Comment on above: PATIENT WAS FASTINGP ERFORMED BY: CB [facility] Tplgdv8434 [address] RoadDublin [place] [id number] Urea nitrogen [Mass/Vol] 16 mg/dL Normal 8-27 [facility]; [facility] Work Phone: Comment on above: PATIENT WAS FASTINGP ERFORMED BY: CB [facility] Czorjj9870 [address] [facility] HospitalDublin [place] [id number] Urea nitrogen/Creatinine [Mass ratio] 17 mg/mg Normal 12-28 [facility]; [facility] Work Phone: Comment on above: PATIENT WAS FASTINGP ERFORMED BY: [facility]6[address] [facility] [id number] ZINC, BLOOD (41402)Ordered B y: Bag Machine Operator on 03-01-2020 Zinc [Mass/Vol] 80 ug/dL Normal 44-115 [facility] Internal Medicine; [facility] Work Phone: Comment on above: Detection Limit = 5 . Please note reference interval change Test(s) 821506-Fyfs, Plasma or Serumwas developed and its performance characteristics determinedby [employer]. It has not been cleared or approved by the Foodand Drug Administration.PATIENT WAS FASTINGPERFORMED BY: [employer] [place] [address] [id number] BY: [employer] [id number] Anti TPO Antibody (08647)Ord ered By: Bag Machine Operator on 10-06-2019 TPO Ab Qn 92 {IU/mL} Abnormal 0-34 [facility] Work Phone: Comment on above: A courtesy copy of t his report has been sent to [phone] WAS FASTINGPERFORMED BY: Red Loop MediaDawn [place] 4503370 [facility] [id number] TPO Ab Qn 92 [IU]/mL Abnormal 0-34 [facility]; [facility] Work Phone: Comment on above: A courtesy copy of t his report has been sent to [phone] WAS FASTINGPERFORMED BY: Red Loop MediaDawn V[place] 4503370 [facility] [id number] CALCIFEDIOL (12967)Ordered B y: Bag Machine Operator on 10-06-2019 25-Hydroxyvitamin D2+25-Hydroxyvitamin D3 [Mass/Vol] 47.8 ng/mL Normal 30.0-100.0 [facility] Work Phone: Comment on above: Vitamin D deficiency has been defined by the [place] of[place]icine and an Endocrine Society practice guideline as alevel of serum 25-OH vitamin D less than 20 ng/mL (1,2).The Endocrine Society went on to further define vitamin Dinsufficiency as a level between 21 and 29 ng/mL (2).1. IOM ([place] of Medicine). 2010. Dietary reference intakes for calcium and D. [place]: The National Academies Press.2. Quentin MF, Thania CUENCA, Raciel BUCHANAN, et al. Evaluation, treatment, and prevention of vitamin D deficiency: an Endocrine Society clinical practice guideline. JCEM. 2010; 96(7):1911-30. A courtesy copy of t his report has been sent to [phone] WAS FASTINGPERFORMED BY: SiOnyxin [place] [id number] CBC W/AUTO DIFF WBC (54106)O rdered By: Bag Machine Operator on 10-06-2019 Basophils (Bld) [#/Vol] 0.1 {x10E3/uL} Normal 0.0-0.2 [facility] Work Phone: Comment on above: A courtesy copy of t his report has been sent to [phone] WAS FASTINGPERFORMED BY: MOLOMEblin MD [id number] Basophils (Bld) [#/Vol] 0.1 10*3/uL Normal 0.0-0.2 [facility]; [facility] Work Phone: Comment on above: A courtesy copy of t his report has been sent to [phone] WAS FASTINGPERFORMED BY: CustomerXPs Softwareblin [place] [id number] Basophils/100 WBC (Bld) 1 % Normal [facility] Work Phone: Comment on above: A courtesy copy of t his report has been sent to [phone] WAS FASTINGPERFORMED BY: [employer] TicketFireDublin [place] [id number] Eosinophils (Bld) [#/Vol] 0.1 {x10E3/uL} Normal 0.0-0.4 [facility] Work Phone: Comment on above: A courtesy copy of t his report has been sent to [phone] WAS FASTINGPERFORMED BY: ROSA MARIA [employer] Baaofn5776 [facility] [id number] Eosinophils (Bld) [#/Vol] 0.1 10*3/uL Normal 0.0-0.4 [facility]; [facility] Work Phone: Comment on above: A courtesy copy of t his report has been sent to [phone] WAS FASTINGPERFORMED BY: ROSA MARIA Octmami [facility] [id number] Eosinophils/100 WBC (Bld) 2 % Normal [facility] Work Phone: Comment on above: A courtesy copy of t his report has been sent to [phone] WAS FASTINGPERFORMED BY: ROSA MARIA Octmami [facility] [id number] Erythrocyte distribution width (RBC) [Ratio] 12.5 % Normal 11.7-15.4 [facility] Work Phone: Comment on above: A courtesy copy of t his report has been sent to [phone] WAS FASTINGPERFORMED BY: ROSA MARIA Octmami [facility] [id number] Hematocrit (Bld) [Volume fraction] 43.6 % Normal 34.0-46.6 [facility] Work Phone: Comment on above: A courtesy copy of t his report has been sent to [phone] WAS FASTINGPERFORMED BY: ROSA MARIA Grability70 [facility] [id number] Hemoglobin (Bld) [Mass/Vol] 13.9 g/dL Normal 11.1-15.9 [facility] Work Phone: Comment on above: A courtesy copy of t his report has been sent to [phone] WAS FASTINGPERFORMED BY: [employer]CI Group Holdinglin6370 [facility] [id number] Immature granulocytes (Bld) [#/Vol] 0.0 {x10E3/uL} Normal 0.0-0.1 [facility] Work Phone: Comment on above: A courtesy copy of t his report has been sent to [phone] WAS FASTINGPERFORMED BY: [facility]Children[facility]6370 [facility] [id number] Immature granulocytes (Bld) [#/Vol] 0.0 10*3/uL Normal 0.0-0.1 [facility]; [facility] Work Phone: Comment on above: A courtesy copy of t his report has been sent to [phone] WAS FASTINGPERFORMED BY: [facility] Hospitallin6370 [facility] [id number] Immature granulocytes/100 WBC (Bld) 0 % Normal [facility] Work Phone: Comment on above: A courtesy copy of t his report has been sent to [phone] WAS FASTINGPERFORMED BY: Eyebrid BlazeMineral Area Regional Medical CenterUdwqat8489 [facility] [id number] Lymphocytes (Bld) [#/Vol] 2.6 {x10E3/uL} Normal 0.7-3.1 [facility] Work Phone: Comment on above: A courtesy copy of t his report has been sent to [phone] WAS FASTINGPERFORMED BY: [facility]6[address] [facility] [id number] Lymphocytes (Bld) [#/Vol] 2.6 10*3/uL Normal 0.7-3.1 [facility]; [facility] Work Phone: Comment on above: A courtesy copy of t his report has been sent to [phone] WAS FASTINGPERFORMED BY: Red Loop MediaVirtua VoorheesEawwmt7384 [facility] [id number] Lymphocytes/100 WBC (Bld) 41 % Normal [facility] Work Phone: Comment on above: A courtesy copy of t his report has been sent to [phone] WAS FASTINGPERFORMED BY: ROSA MARIA [employer] Hmpssv7898 [facility] [id number] MCH (RBC) [Entitic mass] 28.3 pg Normal 26.6-33.0 [facility] Internal Medicine Work Phone: Comment on above: A courtesy copy of t his report has been sent to [phone] WAS FASTINGPERFORMED BY: ROSA MARIA LabMineral Area Regional Medical CenterFqavnj2479 [facility] [id number] MCHC (RBC) [Mass/Vol] 31.9 g/dL Normal 31.5-35.7 [facility] Internal Medicine Work Phone: Comment on above: A courtesy copy of t his report has been sent to [phone] WAS FASTINGPERFORMED BY: ROSA MARIA [facility]Three [facility] Nmyiur4260 [facility] [id number] MCV (RBC) [Entitic vol] 89 fL Normal 79-97 [facility] Work Phone: Comment on above: A courtesy copy of t his report has been sent to [phone] WAS FASTINGPERFORMED BY: ROSA MARIA Eyebrid BlazeThree [facility] Cealos3379 [facility] [id number] Monocytes (Bld) [#/Vol] 0.6 {x10E3/uL} Normal 0.1-0.9 [facility] Internal Medicine Work Phone: Comment on above: A courtesy copy of t his report has been sent to [phone] WAS FASTINGPERFORMED BY: [employer] Tylsay4518 [facility] [id number] Monocytes (Bld) [#/Vol] 0.6 10*3/uL Normal 0.1-0.9 [facility] Internal Medicine; [facility] Work Phone: Comment on above: A courtesy copy of t his report has been sent to [phone] WAS FASTINGPERFORMED BY: ROSA MARIA Eyebrid BlazeThree [facility] Vvlntc5159 [facility] [id number] Monocytes/100 WBC (Bld) 10 % Normal [facility] Work Phone: Comment on above: A courtesy copy of t his report has been sent to [phone] WAS FASTINGPERFORMED BY: ROSA MARIA [facility] Igsfuf2251 [address] [facility] [id number] Neutrophils (Bld) [#/Vol] 2.9 {x10E3/uL} Normal 1.4-7.0 [facility] Work Phone: Comment on above: A courtesy copy of t his report has been sent to [phone] WAS FASTINGPERFORMED BY: ROSA MARIA [facility] Ymurlm7164 [facility] [id number] Neutrophils (Bld) [#/Vol] 2.9 10*3/uL Normal 1.4-7.0 [facility]; [facility] Work Phone: Comment on above: A courtesy copy of t his report has been sent to [phone] WAS FASTINGPERFORMED BY: ROSA MARIA [facility] Bozwft4258 [facility] [id number] Neutrophils/100 WBC (Bld) 46 % Normal [facility] Work Phone: Comment on above: A courtesy copy of t his report has been sent to [phone] WAS FASTINGPERFORMED BY: [facility] Aqbwxt7940 [facility] [id number] Platelets (Bld) [#/Vol] 250 {x10E3/uL} Normal 150-450 [facility] Work Phone: Comment on above: A courtesy copy of t his report has been sent to [phone] WAS FASTINGPERFORMED BY: [facility] Etyjbd8478 [facility] Centerin [place] [id number] Platelets (Bld) [#/Vol] 250 10*3/uL Normal 150-450 [facility]; [facility] Work Phone: Comment on above: A courtesy copy of t his report has been sent to [phone] WAS FASTINGPERFORMED BY: ROSA MARIA LabCo Eirvmz5370 [address] [facility] [id number] RBC (Bld) [#/Vol] 4.91 {x10E6/uL} Normal 3.77-5.28 [facility] Internal Medicine Work Phone: Comment on above: A courtesy copy of t his report has been sent to [phone] WAS FASTINGPERFORMED BY: ROSA MARIA [facility] Nazfro8288 [facility] [id number] RBC (Bld) [#/Vol] 4.91 10*6/uL Normal 3.77-5.28 [facility] Internal Medicine; [facility] Work Phone: Comment on above: A courtesy copy of t his report has been sent to [phone] WAS FASTINGPERFORMED BY: ROSA MARIA LabHaoqiao.cn6370 [facility] [id number] WBC (Bld) [#/Vol] 6.3 {x10E3/uL} Normal 3.4-10.8 [facility] Internal Medicine Work Phone: Comment on above: A courtesy copy of t his report has been sent to [phone] WAS FASTINGPERFORMED BY: ROSA MARIA [employer] Tnvluq9175 [facility] [id number] WBC (Bld) [#/Vol] 6.3 10*3/uL Normal 3.4-10.8 [facility] Internal Medicine; [facility] Work Phone: Comment on above: A courtesy copy of t his report has been sent to [phone] WAS FASTINGPERFORMED BY: ROSA MARIA LabTaaz Ooqkbs3360 [facility] [id number] LIPID PANEL (04158)Ordered B y: Bag Machine Operator on 10-06-2019 Cholesterol [Mass/Vol] 210 mg/dL Abnormal 100-199 [facility] Work Phone: Comment on above: A courtesy copy of t his report has been sent to [phone] WAS FASTINGPERFORMED BY: ROSA MARIA [employer] Onxdtw8878 Farmer TicketFireFrye Regional Medical Centerin [place] [id number] Cholesterol in HDL [Mass/Vol] 79 mg/dL Normal [facility] Work Phone: Comment on above: A courtesy copy of t his report has been sent to [phone] WAS FASTINGPERFORMED BY: [employer] Pticlt2612 Farmer TicketFireFrye Regional Medical Centerin [place] [id number] Cholesterol in LDL [Mass/Vol] 109 mg/dL Abnormal 0-99 [facility] Work Phone: Comment on above: A courtesy copy of t his report has been sent to [phone] WAS FASTINGPERFORMED BY: [employer] Exdagb5541 Farmer TicketFireSentara Albemarle Medical Center [id number] Cholesterol in LDL/Cholesterol in HDL [Mass ratio] 1.4 {ratio} Normal 0.0-3.2 [facility] Work Phone: Comment on above: LDL/HDL Ratio Men Wo men 1/2 Avg.Risk 1.0 1.5 Avg.Risk 3.6 3.2 2X Avg.Risk 6.2 5.0 3X Avg.Risk 8.0 6.1 A courtesy copy of t his report has been sent to [phone] WAS FASTINGPERFORMED BY: [employer] Umqtth9368 Farmer TicketFireSentara Albemarle Medical Center [id number] Cholesterol in VLDL [Mass/Vol] 22 mg/dL Normal 5-40 [facility] Work Phone: Comment on above: A courtesy copy of t his report has been sent to [phone] WAS FASTINGPERFORMED BY: [employer] Sibzdj7728 Farmer TicketFireSentara Albemarle Medical Center [id number] Triglyceride [Mass/Vol] 109 mg/dL Normal 0-149 [facility] Work Phone: Comment on above: A courtesy copy of t his report has been sent to [phone] WAS FASTINGPERFORMED BY: LabTaaz Msousr9884 [facility]in [place] [id number] METABOLIC PANEL, COMPREHENSI VE (81631)Ordered By: Bag Machine Operator on 10-06-2019 Albumin [Mass/Vol] 4.5 g/dL Normal 3.7-4.7 [facility] Internal Medicine Work Phone: Comment on above: A courtesy copy of t his report has been sent to [phone] WAS FASTINGPERFORMED BY: ROSA MARIA [employer] Voykvx1893 Farmer RoadFrye Regional Medical Centerin [place] [id number] Albumin/Globulin [Mass ratio] 1.7 {ratio} Normal 1.2-2.2 [facility] Work Phone: Comment on above: A courtesy copy of t his report has been sent to [phone] WAS FASTINGPERFORMED BY: ROSA MARIA Octmami Farmer Roadblin [place] [id number] ALP [Catalytic activity/Vol] 99 [iU]/L Normal 39-117 [facility] Work Phone: Comment on above: A courtesy copy of t his report has been sent to [phone] WAS FASTINGPERFORMED BY: ROSA MARIA Grability70 Farmer RoadFrye Regional Medical Centerin [place] [id number] ALP [Catalytic activity/Vol] 99 U/L Normal 39-117 [facility]; [facility] Work Phone: Comment on above: A courtesy copy of t his report has been sent to [phone] WAS FASTINGPERFORMED BY: ROSA MARIA Grability70 Farmer TicketFireSentara Albemarle Medical Center [id number] ALT [Catalytic activity/Vol] 24 [iU]/L Normal 0-32 [facility] Work Phone: Comment on above: A courtesy copy of t his report has been sent to [phone] WAS FASTINGPERFORMED BY: Octmami Farmer [facility] HospitalDublin [place] [id number] ALT [Catalytic activity/Vol] 24 U/L Normal 0-32 [facility]; [facility] Work Phone: Comment on above: A courtesy copy of t his report has been sent to [phone] WAS FASTINGPERFORMED BY: [employer] Lcqowy3280 Farmer [facility] Hospitalblin [place] [id number] AST [Catalytic activity/Vol] 34 [iU]/L Normal 0-40 [facility] Internal Medicine Work Phone: Comment on above: A courtesy copy of t his report has been sent to [phone] WAS FASTINGPERFORMED BY: [facility] Oiyurn4896 Farmer [facility]in [place] [id number] AST [Catalytic activity/Vol] 34 U/L Normal 0-40 [facility]; [facility] Internal Medicine Work Phone: Comment on above: A courtesy copy of t his report has been sent to [phone] WAS FASTINGPERFORMED BY: [facility] Nxdzvo8016 [facility] [id number] Bilirubin [Mass/Vol] 0.6 mg/dL Normal 0.0-1.2 [facility] Work Phone: Comment on above: A courtesy copy of t his report has been sent to [phone] WAS FASTINGPERFORMED BY: [facility] Sggfui3251 Farmer [facility] [id number] Calcium [Mass/Vol] 9.7 mg/dL Normal 8.7-10.3 [facility] Internal Medicine Work Phone: Comment on above: A courtesy copy of t his report has been sent to [phone] WAS FASTINGPERFORMED BY: [facility] Caadsw6904 Farmer [facility] [id number] Chloride [Moles/Vol] 95 mmol/L Abnormal 96-106 [facility] Internal Medicine Work Phone: Comment on above: A courtesy copy of t his report has been sent to [phone] WAS FASTINGPERFORMED BY: LabCo Mrfzzs8222 Farmer [facility] Hospitalblin [place] [id number] CO2 [Moles/Vol] 26 mmol/L Normal 20-29 [facility] Internal Medicine Work Phone: Comment on above: A courtesy copy of t his report has been sent to [phone] WAS FASTINGPERFORMED BY: ROSA MARIA [employer]6370 [facility] [id number] Creatinine [Mass/Vol] 0.90 mg/dL Normal 0.57-1.00 [facility] Internal Medicine Work Phone: Comment on above: A courtesy copy of t his report has been sent to [phone] WAS FASTINGPERFORMED BY: ROSA MARIA [employer]6370 [address] [facility] [id number] GFR/1.73 sq M predicted among blacks CKD-EPI (S/P/Bld) [Vol rate/Area] 71 mL/min/1.73 Normal [facility] Internal Medicine Work Phone: Comment on above: A courtesy copy of t his report has been sent to [phone] WAS FASTINGPERFORMED BY: ROSA MARIA Grability70 [facility] [id number] GFR/1.73 sq M predicted among non-blacks CKD-EPI (S/P/Bld) [Vol rate/Area] 61 mL/min/1.73 Normal [facility] Internal Medicine Work Phone: Comment on above: A courtesy copy of t his report has been sent to [phone] WAS FASTINGPERFORMED BY: ROSA MARIA Grability70 [facility] [id number] Globulin (S) [Mass/Vol] 2.6 g/dL Normal 1.5-4.5 [facility] Internal Medicine Work Phone: Comment on above: A courtesy copy of t his report has been sent to [phone] WAS FASTINGPERFORMED BY: [employer]6370 [facility] [id number] Glucose [Mass/Vol] 106 mg/dL Abnormal 65-99 [facility] Internal Medicine Work Phone: Comment on above: A courtesy copy of t his report has been sent to [phone] WAS FASTINGPERFORMED BY: [employer]6370 [facility] [id number] Potassium [Moles/Vol] 4.5 mmol/L Normal 3.5-5.2 [facility] Internal Medicine Work Phone: Comment on above: A courtesy copy of t his report has been sent to [phone] WAS FASTINGPERFORMED BY: ROSA MARIA [employer] Bimyio8704 Farmer TicketFireSentara Albemarle Medical Center [id number] Protein [Mass/Vol] 7.1 g/dL Normal 6.0-8.5 [facility] Internal Medicine Work Phone: Comment on above: A courtesy copy of t his report has been sent to [phone] WAS FASTINGPERFORMED BY: ROSA MARIA Grability70 [facility] [id number] Sodium [Moles/Vol] 134 mmol/L Normal 134-144 [facility] Internal Medicine Work Phone: Comment on above: A courtesy copy of t his report has been sent to [phone] WAS FASTINGPERFORMED BY: ROSA MARIA Grability70 [place] TicketFireSentara Albemarle Medical Center [id number] Urea nitrogen [Mass/Vol] 18 mg/dL Normal 8-27 [facility] Internal Medicine Work Phone: Comment on above: A courtesy copy of t his report has been sent to [phone] WAS FASTINGPERFORMED BY: ROSA MARIA Grability70 Farmer TicketFireSentara Albemarle Medical Center [id number] Urea nitrogen/Creatinine [Mass ratio] 20 mg/mg Normal 12-28 [facility] Internal Medicine Work Phone: Comment on above: A courtesy copy of t his report has been sent to [phone] WAS FASTINGPERFORMED BY: Notch70 [facility] [id number] MICROALBUMINOrdered By: Syst em Certified Social Workers In Health Care on 10-06-2019 Albumin DL <= 20 mg/L (U) [Mass/Vol] 7.9 ug/mL Normal [facility] Internal Medicine Work Phone: Comment on above: A courtesy copy of t his report has been sent to [phone] WAS FASTINGPERFORMED BY: [employer]6370 [facility] [id number] Albumin/Creatinine (U) [Mass ratio] 10 {mg/g_creat} Normal 0-29 [facility] Work Phone: Comment on above: Normal: 0 - 29 Moder ately increased: 30 - 300 Severely increased: >300 Please note reference interval change A courtesy copy of t his report has been sent to [phone] WAS FASTINGPERFORMED BY: Notch70 [facility] [id number] Creatinine (U) [Mass/Vol] 79.1 mg/dL Normal [facility] Work Phone: Comment on above: A courtesy copy of t his report has been sent to [phone] WAS FASTINGPERFORMED BY: Notch70 [facility] [id number] T3, FREE (TRIDOTHYRONINE) (8 0186)Ordered By: Bag Machine Operator on 10-06-2019 Free T3 [Mass/Vol] 3.5 pg/mL Normal 2.0-4.4 [facility] Internal Medicine Work Phone: Comment on above: A courtesy copy of t his report has been sent to [phone] WAS FASTINGPERFORMED BY: [employer]6370 [facility] [id number] T4, FREE (THYROXINE) (13764) Ordered By: Bag Machine Operator on 10-06-2019 Free T4 [Mass/Vol] 1.41 ng/dL Normal 0.82-1.77 [facility] Internal Medicine Work Phone: Comment on above: A courtesy copy of t his report has been sent to [phone] WAS FASTINGPERFORMED BY: Notch70 [facility] [id number] TSH (56545)Ordered By: Bonfire.come m Certified Social Workers In Health Care on 10-06-2019 TSH Qn 5.320 {uIU/mL} Abnormal 0.450-4.50 0 [facility] Work Phone: Comment on above: A courtesy copy of t his report has been sent to [phone] WAS FASTINGPERFORMED BY: ROSA MARIA LabDianne MontgomeryCoaqpp9965 [address] [facility] [id number] URINALYSIS, W/ MICRO (02042) Ordered By: Bag Machine Operator on 10-06-2019 Appearance (U) Clear Normal Comprehens brianne Internal Medicine Work Phone: Comment on above: A courtesy copy of t his report has been sent to [phone] WAS FASTINGPERFORMED BY: ROSA MARIA LabDianne MontgomeryMecpdo1421 Farmer RoadSentara Albemarle Medical Center [id number] Bilirubin Ql (U) Negative Normal Comprehe nsive Internal Medicine Work Phone: Comment on above: A courtesy copy of t his report has been sent to [phone] WAS FASTINGPERFORMED BY: ROSA MARIA Montgomerylin6370 Farmer RoadSentara Albemarle Medical Center [id number] Bilirubin Ql (U) Negative Normal Comprehe nsive Internal Medicine; [facility] Work Phone: Comment on above: A courtesy copy of t his report has been sent to [phone] WAS FASTINGPERFORMED BY: ROSA MARIA Montgomerylin6370 [address] [facility] [id number] Color (U) Yellow Normal [facility] Work Phone: Comment on above: A courtesy copy of t his report has been sent to [phone] WAS FASTINGPERFORMED BY: ROSA MARIA LabDianne MontgomeryFqevks0491 [address] [facility] [id number] Glucose Ql (U) Negative Normal Comprehens brianne Internal Medicine Work Phone: Comment on above: A courtesy copy of t his report has been sent to [phone] WAS FASTINGPERFORMED BY: ROSA MARIA LabJie Auvloo2507 [facility] [id number] Glucose Ql (U) Negative Normal Comprehens brianne Internal Medicine; [facility] Work Phone: Comment on above: A courtesy copy of t his report has been sent to [phone] WAS FASTINGPERFORMED BY: ROSA MARIA [facility] Vbjewf9658 [address] RoadDublin [place] [id number] Hemoglobin Ql (U) Negative Normal Compreh ensive Internal Medicine Work Phone: Comment on above: A courtesy copy of t his report has been sent to [phone] WAS FASTINGPERFORMED BY: ROSA MARIA [facility] Mzguhe0726 [address] RoadDublin [place] [id number] Hemoglobin Ql (U) Negative Normal Compreh ensive Internal Medicine; [facility] Work Phone: Comment on above: A courtesy copy of t his report has been sent to [phone] WAS FASTINGPERFORMED BY: ROSA MARIA LabDianne MontgomeryCsvbev6[address] RoadDublin [place] [id number] Ketones Ql (U) Negative Normal Comprehens brianne Internal Medicine Work Phone: Comment on above: A courtesy copy of t his report has been sent to [phone] WAS FASTINGPERFORMED BY: ROSA MARIA [facility] Vhrwih6[address] RoadDublin [place] [id number] Ketones Ql (U) Negative Normal Comprehens brianne Internal Medicine; [facility] Work Phone: Comment on above: A courtesy copy of t his report has been sent to [phone] WAS FASTINGPERFORMED BY: ROSA MARIA [facility] Htrobe4585 [address] RoadDublin [place] [id number] Leukocyte esterase Test strip Ql (U) Negative Normal [facility] Work Phone: Comment on above: A courtesy copy of t his report has been sent to [phone] WAS FASTINGPERFORMED BY: ROSA MARIA [facility] Kesqbj4809 [address] RoadDublin [place] [id number] Leukocyte esterase Test strip Ql (U) Negative Normal [facility]; [facility] Work Phone: Comment on above: A courtesy copy of t his report has been sent to [phone] WAS FASTINGPERFORMED BY: ROSA MARIA [facility] Swgrpc30[address] RoadDublin [place] [id number] Microscopic observation LM Nom (Urine sed) See below: Normal [facility] Work Phone: Comment on above: Microscopic was ajay cated and was performed. A courtesy copy of t his report has been sent to [phone] WAS FASTINGPERFORMED BY: ROSA MARIA LabDianne MontgomeryIfspih[address] [facility] [id number] Microscopic observation LM Nom (Urine sed) MICRON Normal [facility] Work Phone: Comment on above: Microscopic follows if indicated. A courtesy copy of t his report has been sent to [phone] WAS FASTINGPERFORMED BY: ROSA MARIA [facility] Zitcyj5231 [facility] [id number] Nitrite Ql (U) Negative Normal Comprehens brianne Internal Medicine Work Phone: Comment on above: A courtesy copy of t his report has been sent to [phone] WAS FASTINGPERFORMED BY: ROSA MARIA [facility] Mzjzss[address] [facility] [id number] Nitrite Ql (U) Negative Normal Comprehens brianne Internal Medicine; [facility] Work Phone: Comment on above: A courtesy copy of t his report has been sent to [phone] WAS FASTINGPERFORMED BY: ROSA MARIA Montgomerylin[address] [facility] [id number] pH (U) 7.0 [pH] Normal 5.0-7.5 [facility] Work Phone: Comment on above: A courtesy copy of t his report has been sent to [phone] WAS FASTINGPERFORMED BY: [facility] Siffap[address] [facility] [id number] Protein Ql (U) Negative Normal Comprehens brianne Internal Medicine Work Phone: Comment on above: A courtesy copy of t his report has been sent to [phone] WAS FASTINGPERFORMED BY: ROSA MARIA [facility] Xxwliv[address] [facility] [id number] Protein Ql (U) Negative Normal Comprehens brianne Internal Medicine; [facility] Internal Medicine Work Phone: Comment on above: A courtesy copy of t his report has been sent to [phone] WAS FASTINGPERFORMED BY: ROSA MARIA [employer] Szdvrp6830 [facility] [id number] Specific gravity (U) [Rel density] 1.014 1 Normal 1.005-1.03 0 [facility] Internal Medicine Work Phone: Comment on above: A courtesy copy of t his report has been sent to [phone] WAS FASTINGPERFORMED BY: ROSA MARIA [employer]6370 [facility] [id number] Urobilinogen (U) [Mass/Vol] 0.2 mg/dL Normal 0.2-1.0 [facility] Internal Medicine; [facility] Internal Medicine Work Phone: Comment on above: A courtesy copy of t his report has been sent to [phone] WAS FASTINGPERFORMED BY: ROSA MARIA [employer]6370 [facility] [id number] Urobilinogen Test strip (U) [Mass/Vol] 0.2 mg/dL Normal 0.2-1.0 [facility] Internal Medicine Work Phone: Comment on above: A courtesy copy of t his report has been sent to [phone] WAS FASTINGPERFORMED BY: ROSA MARIA [employer]6370 [facility] [id number] VITAMIN B-12 (CYANOCOBALAMIN ) (99724)Ordered By: Bag Machine Operator on 10-06-2019 Cobalamin (Vitamin B12) [Mass/Vol] 563 pg/mL Normal 232-1245 [facility] Internal Medicine Work Phone: Comment on above: A courtesy copy of t his report has been sent to [phone] WAS FASTINGPERFORMED BY: [employer]6370 [facility] [id number] T3, FREE (TRIDOTHYRONINE) (8 0755)Ordered By: Bag Machine Operator on 09-09-2018 Free T3 [Mass/Vol] 3.4 pg/mL Normal 2.0-4.4 [facility] Internal Medicine Work Phone: Comment on above: PATIENT NOT FASTINGP ERFORMED BY: ROSA MARIA [facility] Aylsga8[address] RoadDublin [place] [id number] T4, FREE (THYROXINE) (62519) Ordered By: Bag Machine Operator on 09-09-2018 Free T4 [Mass/Vol] 1.41 ng/dL Normal 0.82-1.77 [facility] Internal Medicine Work Phone: Comment on above: PATIENT NOT FASTINGP ERFORMED BY: ROSA MARIA [facility] Gyxlux8[address] RoadDublin [place] [id number] TSH (75504)Ordered By: [employer]corazon m [employer] on 09-09-2018 TSH Qn 2.880 {uIU/mL} Normal 0.450-4.50 0 [facility] Internal Medicine Work Phone: Comment on above: PATIENT NOT FASTINGP ERFORMED BY: CB [facility] Yxgijc5150 [address] RoadDublin [place] [id number] HEPATIC FUNCTION PANEL (8007 6)Ordered By: Bag Machine Operator on 08-31-2018 Albumin [Mass/Vol] 4.4 g/dL Normal 3.5-4.8 [facility] Internal Medicine Work Phone: Comment on above: PATIENT NOT FASTINGP ERFORMED BY: CB [facility] Rysuxa7552 [address] RoadDublin [place] [id number] ALP [Catalytic activity/Vol] 86 [iU]/L Normal 39-117 [facility] Work Phone: Comment on above: PATIENT NOT FASTINGP ERFORMED BY: CB [facility] Rhinpa1533 [address] RoadDublin [place] [id number] ALP [Catalytic activity/Vol] 86 U/L Normal 39-117 [facility]; [facility] Work Phone: Comment on above: PATIENT NOT FASTINGP ERFORMED BY: CB [facility] Epvzwl3050 [address] RoadDublin [place] [id number] ALT [Catalytic activity/Vol] 23 [iU]/L Normal 0-32 [facility] Work Phone: Comment on above: PATIENT NOT FASTINGP ERFORMED BY: CB [facility] Axxjhj4230 [address] RoadDublin [place] [id number] ALT [Catalytic activity/Vol] 23 U/L Normal 0-32 [facility]; [facility] Work Phone: Comment on above: PATIENT NOT FASTINGP ERFORMED BY: CB [facility] Blgtcx3331 [address] RoadDublin [place] [id number] AST [Catalytic activity/Vol] 30 [iU]/L Normal 0-40 [facility] Work Phone: Comment on above: PATIENT NOT FASTINGP ERFORMED BY: CB [facility] Onkojv4777 [address] RoadDublin [place] [id number] AST [Catalytic activity/Vol] 30 U/L Normal 0-40 [facility]; [facility] Work Phone: Comment on above: PATIENT NOT FASTINGP ERFORMED BY: CB [facility] Ldwoth0877 [address] RoadDublin [place] [id number] Bilirubin [Mass/Vol] 0.6 mg/dL Normal 0.0-1.2 Comp [facility] Work Phone: Comment on above: PATIENT NOT FASTINGP ERFORMED BY: CB [facility] Qlexmt9116 [address] RoadDublin [place] [id number] Bilirubin.direct [Mass/Vol] 0.17 mg/dL Normal 0.00-0.40 [facility] Work Phone: Comment on above: PATIENT NOT FASTINGP ERFORMED BY: CB [facility] Hhlzma4019 [address] RoadDublin [place] [id number] Protein [Mass/Vol] 6.9 g/dL Normal 6.0-8.5 [facility]pre [facility] Internal Medicine Work Phone: Comment on above: PATIENT NOT FASTINGP ERFORMED BY: CB [facility] Nruzor0134 [address] RoadDublin [place] [id number] Urinalysis, Office (15745)Or dered By: Lorna Contreras on 08-12-2018 Bilirubin Ql (U) Negative Normal Comprehe nsive Internal Medicine Work Phone: Bilirubin Ql (U) Negative Normal Comprehe nsive Internal Medicine; [facility] Work Phone: Glucose Test strip (U) [Mass/Vol] Negative Normal [facility]; [facility] Work Phone: Glucose Test strip mass conc (U) Negative Normal [facility] Work Phone: Hemoglobin Ql (U) Negative Normal Compreh ensive Internal Medicine Work Phone: Hemoglobin Ql (U) Negative Normal Compreh ensive Internal Medicine; [facility] Work Phone: Ketones Ql (U) Negative Normal Comprehens brianne Internal Medicine Work Phone: Ketones Ql (U) Negative Normal Comprehens brianne Internal Medicine; [facility] Work Phone: Leukocyte esterase Test strip Ql (U) Negative Normal [facility] Work Phone: Leukocyte esterase Test strip Ql (U) Negative Normal [facility]; [facility] Work Phone: Nitrite Ql (U) Negative Normal Comprehens brianne Internal Medicine Work Phone: Nitrite Ql (U) Negative Normal Comprehens brianne Internal Medicine; [facility] Work Phone: pH (U) 6.5 [pH] Normal [facility] Work Phone: Protein Ql (U) Negative Normal Comprehens brianne Internal Medicine Work Phone: Protein Ql (U) Negative Normal Comprehens brianne Internal Medicine; [facility] Work Phone: Specific gravity Relative Density (U) 1.020 1 Normal Comprehensi ve Internal Medicine Work Phone: Urobilinogen mass/time (24H U) Normal Normal [facility] Work Phone: Request Problemon 05-28-2018 Request Problem Comprehen sive Internal Medicine Work Phone: Comment on above: PATIENT NOT FASTINGP ERFORMED BY: BN [facility] [address] [id number] BY: CB [facility] Xlrmoe6222 [facility]in [place] [id number] Request Problemon 05-05-2018 Request Problem Comprehen sive Internal Medicine Work Phone: Comment on above: PATIENT NOT FASTINGP ERFORMED BY: [facility]1447 [facility] [id number] BY: [facility]6370 [facility] [id number] CBC WITH MANUAL DIFF (10502) Ordered By: Bag Machine Operator on 01-21-2018 Basophils #/vol (Bld) 0.0 {x10E3/uL} Normal 0.0-0.2 [facility] Work Phone: Comment on above: PATIENT WAS FASTINGP ERFORMED BY: [facility]6370 [facility] [id number] Basophils (Bld) [#/Vol] 0.0 10*3/uL Normal 0.0-0.2 [facility]; [facility] Work Phone: Comment on above: PATIENT WAS FASTINGP ERFORMED BY: [facility]6370 [facility] Centerin [place] [id number] Basophils/100 WBC (Bld) 1 % Normal [facility] Work Phone: Comment on above: PATIENT WAS FASTINGP ERFORMED BY: [facility]6370 [facility] [id number] Eosinophils #/vol (Bld) 0.1 {x10E3/uL} Normal 0.0-0.4 [facility] Work Phone: Comment on above: PATIENT WAS FASTINGP ERFORMED BY: LabCoVirtua VoorheesBnjwzl1384 [address] RoadDublin [place] [id number] Eosinophils (Bld) [#/Vol] 0.1 10*3/uL Normal 0.0-0.4 [facility]; [facility] Work Phone: Comment on above: PATIENT WAS FASTINGP ERFORMED BY: Lab[facility]6[address]Dublin [place] [id number] Eosinophils/100 WBC (Bld) 2 % Normal [facility] Work Phone: Comment on above: PATIENT WAS FASTINGP ERFORMED BY: ROSA MARIA Gonzales Qcpait4922 [facility] [id number] Erythrocyte distribution width Ratio (RBC) 13.4 % Normal 12.3-15.4 [facility] Work Phone: Comment on above: PATIENT WAS FASTINGP ERFORMED BY: [facility] Jnjxld1723 [facility] [id number] Hematocrit Volume Fraction (Bld) 37.7 % Normal 34.0-46.6 [facility] Work Phone: Comment on above: PATIENT WAS FASTINGP ERFORMED BY: [facility] Aofrgv1961 [facility] [id number] Hemoglobin mass conc (Bld) 12.7 g/dL Normal 11.1-15.9 [facility] Work Phone: Comment on above: PATIENT WAS FASTINGP ERFORMED BY: [facility] Niclsg1794 [facility] [id number] Immature granulocytes #/vol (Bld) 0.0 {x10E3/uL} Normal 0.0-0.1 [facility] Work Phone: Comment on above: PATIENT WAS FASTINGP ERFORMED BY: [facility] Cfifnp6479 [facility] [id number] Immature granulocytes (Bld) [#/Vol] 0.0 10*3/uL Normal 0.0-0.1 [facility]; [facility] Work Phone: Comment on above: PATIENT WAS FASTINGP ERFORMED BY: [facility]6370 [facility] [id number] Immature granulocytes/100 WBC (Bld) 0 % Normal [facility] Work Phone: Comment on above: PATIENT WAS FASTINGP ERFORMED BY: LabCo Pwgqmf8584 [facility] [id number] Lymphocytes #/vol (Bld) 2.4 {x10E3/uL} Normal 0.7-3.1 [facility] Work Phone: Comment on above: PATIENT WAS FASTINGP ERFORMED BY: [facility] Dkskkh5001 [facility] [id number] Lymphocytes (Bld) [#/Vol] 2.4 10*3/uL Normal 0.7-3.1 [facility]; [facility] Work Phone: Comment on above: PATIENT WAS FASTINGP ERFORMED BY: [facility]6370 [facility] [id number] Lymphocytes/100 WBC (Bld) 37 % Normal [facility] Work Phone: Comment on above: PATIENT WAS FASTINGP ERFORMED BY: LabCoVirtua VoorheesYiloxy8898 [facility] [id number] MCH Entitic mass (RBC) 29.1 pg Normal 26.6-33.0 [facility] Work Phone: Comment on above: PATIENT WAS FASTINGP ERFORMED BY: LabCoVirtua VoorheesRwafls4567 [facility] [id number] MCHC mass conc (RBC) 33.7 g/dL Normal 31.5-35.7 [facility] Internal Medicine Work Phone: Comment on above: PATIENT WAS FASTINGP ERFORMED BY: [facility]6370 [facility] [id number] MCV Entitic volume (RBC) 86 fL Normal 79-97 [facility] Work Phone: Comment on above: PATIENT WAS FASTINGP ERFORMED BY: LabCoVirtua VoorheesGalsyq3255 [facility] [id number] Monocytes #/vol (Bld) 0.6 {x10E3/uL} Normal 0.1-0.9 [facility] Work Phone: Comment on above: PATIENT WAS FASTINGP ERFORMED BY: [facility] Ytduyi3535 [facility] [id number] Monocytes (Bld) [#/Vol] 0.6 10*3/uL Normal 0.1-0.9 [facility]; [facility] Work Phone: Comment on above: PATIENT WAS FASTINGP ERFORMED BY: ROSA MARIA LabDianne Bell[address] RoadDublin [place] [id number] Monocytes/100 WBC (Bld) 9 % Normal [facility] Work Phone: Comment on above: PATIENT WAS FASTINGP ERFORMED BY: ROSA MARIA Darin Bell[address]Dublin [place] [id number] Neutrophils #/vol (Bld) 3.4 {x10E3/uL} Normal 1.4-7.0 [facility] Work Phone: Comment on above: PATIENT WAS FASTINGP ERFORMED BY: ROSA MARIA LabDianne Bell[address]Dublin [place] [id number] Neutrophils (Bld) [#/Vol] 3.4 10*3/uL Normal 1.4-7.0 [facility]; [facility] Work Phone: Comment on above: PATIENT WAS FASTINGP ERFORMED BY: ROSA MARIA Darin Xqbpxh7985 Farmer RoadFrye Regional Medical Centerin [place] [id number] Neutrophils/100 WBC (Bld) 51 % Normal [facility] Work Phone: Comment on above: PATIENT WAS FASTINGP ERFORMED BY: ROSA MARIA Darin Bell[address] [facility]in [place] [id number] Platelets #/vol (Bld) 288 {x10E3/uL} Normal 150-379 [facility] Work Phone: Comment on above: PATIENT WAS FASTINGP ERFORMED BY: ROSA MARIA Darin Bell[address] [facility]in [place] [id number] Platelets (Bld) [#/Vol] 288 10*3/uL Normal 150-379 [facility]; [facility] Work Phone: Comment on above: PATIENT WAS FASTINGP ERFORMED BY: ROSA MARIA LabDianne Bell[address] RoadDublin [place] [id number] RBC #/vol (Bld) 4.37 {x10E6/uL} Normal 3.77-5.28 Comp rehensive Internal Medicine Work Phone: Comment on above: PATIENT WAS FASTINGP ERFORMED BY: ROSA MARIA [facility] Melmoj3124 [address] RoadDublin [place] [id number] RBC (Bld) [#/Vol] 4.37 10*6/uL Normal 3.77-5.28 [facility] Centerensive Internal Medicine; [facility] Internal Medicine Work Phone: Comment on above: PATIENT WAS FASTINGP ERFORMED BY: CB [facility] Thcqpf8759 [address] RoadDublin [place] [id number] WBC #/vol (Bld) 6.5 {x10E3/uL} Normal 3.4-10.8 [facility] Internal Medicine Work Phone: Comment on above: PATIENT WAS FASTINGP ERFORMED BY: ROSA MARIA [facility] Ibbuye8333 [address] RoadDublin [place] [id number] WBC (Bld) [#/Vol] 6.5 10*3/uL Normal 3.4-10.8 [facility] Internal Medicine; [facility] Internal Medicine Work Phone: Comment on above: PATIENT WAS FASTINGP ERFORMED BY: ROSA MARIA [facility] Nsggmg9262 [address] RoadDublin [place] [id number] HEPATIC FUNCTION PANEL (8007 6)Ordered By: Bag Machine Operator on 01-21-2018 Albumin mass conc 4.2 g/dL Normal 3.5-4.8 [facility] Internal Medicine Work Phone: Comment on above: PATIENT WAS FASTINGP ERFORMED BY: ROSA MARIA [facility] Npycfd1802 [address] RoadDublin [place] [id number] ALP [Catalytic activity/Vol] 97 U/L Normal 39-117 [facility] Internal Medicine; [facility] Internal Medicine Work Phone: Comment on above: PATIENT WAS FASTINGP ERFORMED BY: ROSA MARIA [facility] Minler1062 [address] RoadDublin [place] [id number] ALP enzyme act/vol 97 [iU]/L Normal 39-117 [facility] Internal Medicine Work Phone: Comment on above: PATIENT WAS FASTINGP ERFORMED BY: ROSA MARIA [facility] Uvpwju5252 [address] RoadDublin [place] [id number] ALT [Catalytic activity/Vol] 27 U/L Normal 0-32 [facility]; [facility] Internal Medicine Work Phone: Comment on above: PATIENT WAS FASTINGP ERFORMED BY: CB [facility] Zgujcn6408 [address] RoadDublin [place] [id number] ALT enzyme act/vol 27 [iU]/L Normal 0-32 [facility] Internal Medicine Work Phone: Comment on above: PATIENT WAS FASTINGP ERFORMED BY: CB [facility] Meiign8[address] RoadDublin [place] [id number] AST [Catalytic activity/Vol] 31 U/L Normal 0-40 [facility]; [facility] Internal Medicine Work Phone: Comment on above: PATIENT WAS FASTINGP ERFORMED BY: [facility] Dfufab9053 [address] RoadDublin [place] [id number] AST enzyme act/vol 31 [iU]/L Normal 0-40 [facility] Internal Medicine Work Phone: Comment on above: PATIENT WAS FASTINGP ERFORMED BY: [facility] Pbdzbh6152 [address] RoadDublin [place] [id number] Bilirubin mass conc 0.4 mg/dL Normal 0.0-1.2 [facility] Internal Medicine Work Phone: Comment on above: PATIENT WAS FASTINGP ERFORMED BY: [facility] Gxpscf9475 [address] RoadDublin [place] [id number] Bilirubin.direct mass conc 0.14 mg/dL Normal 0.00-0.40 [facility] Internal Medicine Work Phone: Comment on above: PATIENT WAS FASTINGP ERFORMED BY: [facility] Gqpxwn3210 [address] RoadDublin [place] [id number] Protein mass conc 6.8 g/dL Normal 6.0-8.5 [facility] Internal Medicine Work Phone: Comment on above: PATIENT WAS FASTINGP ERFORMED BY: CB [facility] Nwwmvx8[address] RoadDublin [place] [id number] HEPATITIS PANEL (64363)Order ed By: Bag Machine Operator on 01-21-2018 HAV IgM IA Ql Negative Normal Comprehensi ve Internal Medicine Work Phone: Comment on above: PATIENT WAS FASTINGP ERFORMED BY: ROSA MARIA Janet Gesacd6171 [facility] [id number] HAV IgM IA Ql Negative Normal Comprehensi ve Internal Medicine; [facility] Work Phone: Comment on above: PATIENT WAS FASTINGP ERFORMED BY: [place] 6422570 [facility] [id number] HBV core IgM IA Ql Negative Normal [facility] Internal Medicine Work Phone: Comment on above: PATIENT WAS FASTINGP ERFORMED BY: [place] 6422570 [facility] [id number] HBV core IgM IA Ql Negative Normal [facility]; [facility] Work Phone: Comment on above: PATIENT WAS FASTINGP ERFORMED BY: ROSA MARIA [place] 2849870 [facility] [id number] HBV surface Ag IA Ql Negative Normal Comp rehensive Internal Medicine Work Phone: Comment on above: PATIENT WAS FASTINGP ERFORMED BY: [address] [id number] HBV surface Ag IA Ql Negative Normal Comp rehensive Internal Medicine; [facility] Work Phone: Comment on above: PATIENT WAS FASTINGP ERFORMED BY: [place] 6422570 [facility] [id number] HCV Ab Signal/Cutoff IA [Rel units/Vol] {ratio} Normal 0.0-0.9 [facility]; [facility] Work Phone: Comment on above: Negative: < 0.8 Inde terminate: 0.8 - 0.9 Positive: > 0.9 . The CDC recommends that a positive HCV antibody result be followed up with a HCV Nucleic Acid Amplification test (446443). PATIENT WAS FASTINGP ERFORMED BY: [facility]6370 [facility] [id number] HCV Ab Signal/Cutoff IA RelACnc {ratio} Normal 0.0-0.9 [facility] Work Phone: Comment on above: Negative: < 0.8 Inde terminate: 0.8 - 0.9 Positive: > 0.9 . The CDC recommends that a positive HCV antibody result be followed up with a HCV Nucleic Acid Amplification test (487706). PATIENT WAS FASTINGP ERFORMED BY: ROSA MARIA LabConettie Uxqbqq6314 [employer] [id number] Lipid Panel (93932)Ordered B y: Bag Machine Operator on 01-21-2018 Cholesterol in HDL mass conc 78 mg/dL Normal [facility] Work Phone: Comment on above: PATIENT WAS FASTINGP ERFORMED BY: ROSA MARIA LabConettie MontgomeryAotenc5443 Synchronicity.coFormerly [facility] [id number] Cholesterol in LDL mass conc 100 mg/dL Abnormal 0-99 [facility] Work Phone: Comment on above: PATIENT WAS FASTINGP ERFORMED BY: ROSA MARIA LabTaaznettie MontgomeryDxcwpo3580 [address] vendome 1699Formerly [facility] [id number] Cholesterol in LDL/Cholesterol in HDL mass ratio 1.3 {ratio} Normal 0.0-3.2 [facility] Work Phone: Comment on above: LDL/HDL Ratio Men Wo men 1/2 Avg.Risk 1.0 1.5 Avg.Risk 3.6 3.2 2X Avg.Risk 6.2 5.0 3X Avg.Risk 8.0 6.1 PATIENT WAS FASTINGP ERFORMED BY: ROSA MARIA LabTaaznettie MontgomeryCnxpyq3376 Farmer TicketFireSentara Albem[facility] [id number] Cholesterol in VLDL mass conc 17 mg/dL Normal 5-40 [facility] Work Phone: Comment on above: PATIENT WAS FASTINGP ERFORMED BY: ROSA MARIA [facility] Vfcqgr9394 [address] vendome 1699blin [place] [id number] Cholesterol mass conc 195 mg/dL Normal 100-199 [facility] prehensive Internal Medicine Work Phone: Comment on above: PATIENT WAS FASTINGP ERFORMED BY: ROSA MARIA [facility] Tfpkam2100 [address] vendome 1699in [place] [id number] Triglyceride mass conc 83 mg/dL Normal 0-149 [facility] Work Phone: Comment on above: PATIENT WAS FASTINGP ERFORMED BY: Lalina [facility] Qrxytg0762 Farmer RoadDublin [place] [id number] VITAMIN B12 AND FOLATES (826 07)Ordered By: Bag Machine Operator on 01-21-2018 Cobalamin (Vitamin B12) mass conc 779 pg/mL Normal 232-1245 [facility] Work Phone: Comment on above: PATIENT WAS FASTINGP ERFORMED BY: CB [facility] Blqayy2045 [address] RoadDublin [place] [id number] Folate mass conc 17.2 ng/mL Normal Comprehe nsive Internal Medicine Work Phone: Comment on above: A serum folate nuha ntration of less than 3.1 ng/mL isconsidered to represent clinical deficiency. PATIENT WAS FASTINGP ERFORMED BY: Lalina [facility] Zoebuq5581 Farmer RoadDublin [place] [id number] CALCIFEDIOL (30495)Ordered B y: Bag Machine Operator on 05-08-2017 25-Hydroxyvitamin D2+25-Hydroxyvitamin D3 mass conc 52.2 ng/mL Normal 30.0-100.0 [facility] Work Phone: Comment on above: Vitamin D deficiency has been defined by the [place] of[place]icine and an Endocrine Society practice guideline as alevel of serum 25-OH vitamin D less than 20 ng/mL (1,2).The Endocrine Society went on to further define vitamin Dinsufficiency as a level between 21 and 29 ng/mL (2).1. IOM ([place] of Medicine). 2010. Dietary reference intakes for calcium and D. [place]: The National Academies Press.2. Quentin MF, Thania NC, Raciel BUCHANAN, et al. Evaluation, treatment, and prevention of vitamin D deficiency: an Endocrine Society clinical practice guideline. JCEM. 2010; 96(7):1911-30. PATIENT NOT FASTINGP ERFORMED BY: Lalina [facility] Xdzlum9969 Farmer RoadDublin [place] [id number] CBC With Differential/Platel etOrdered By: Bag Machine Operator on 05-01-2017 Basophils #/vol (Bld) 0.1 {x10E3/uL} Normal 0.0-0.2 [facility] Work Phone: Comment on above: PATIENT NOT FASTINGP ERFORMED BY: ROSA MARIA Bell[address] [facility] [place] [id number] Basophils/100 WBC (Bld) 1 % Normal [facility] Work Phone: Comment on above: PATIENT NOT FASTINGP ERFORMED BY: ROSA MARIA Bell[address] [facility] [place] [id number] Eosinophils #/vol (Bld) 0.1 {x10E3/uL} Normal 0.0-0.4 [facility] Work Phone: Comment on above: PATIENT NOT FASTINGP ERFORMED BY: ROSA MARIA Bell[address] [facility] [id number] Eosinophils/100 WBC (Bld) 3 % Normal [facility] Work Phone: Comment on above: PATIENT NOT FASTINGP ERFORMED BY: ROSA MARIA Bell6370 [facility] [id number] Erythrocyte distribution width Ratio (RBC) 13.8 % Normal 12.3-15.4 [facility] Work Phone: Comment on above: PATIENT NOT FASTINGP ERFORMED BY: ROSA MARIA Bell6370 [facility] [id number] Hematocrit Volume Fraction (Bld) 39.2 % Normal 34.0-46.6 [facility] Work Phone: Comment on above: PATIENT NOT FASTINGP ERFORMED BY: ROSA MARIA Montgomerylin6370 [address] [facility] [id number] Hemoglobin mass conc (Bld) 13.2 g/dL Normal 11.1-15.9 [facility] Work Phone: Comment on above: PATIENT NOT FASTINGP ERFORMED BY: ROSA MARIA Montgomerylin6[address] [facility] [place] [id number] Immature granulocytes #/vol (Bld) 0.0 {x10E3/uL} Normal 0.0-0.1 [facility] Work Phone: Comment on above: PATIENT NOT FASTINGP ERFORMED BY: ROSA MARIA [facility] Japzqv3758 Farmer Roadblin [place] [id number] Immature granulocytes/100 WBC (Bld) 0 % Normal [facility] Work Phone: Comment on above: PATIENT NOT FASTINGP ERFORMED BY: ROSA MARIA LabConettie MontgomeryGfkkjf9667 Farmer Roadblin [place] [id number] Lymphocytes #/vol (Bld) 2.0 {x10E3/uL} Normal 0.7-3.1 [facility] Work Phone: Comment on above: PATIENT NOT FASTINGP ERFORMED BY: ROSA MARIA LabConettie MontgomeryKucosg0735 Farmer RoadFrye Regional Medical Centerin [place] [id number] Lymphocytes/100 WBC (Bld) 37 % Normal [facility] Work Phone: Comment on above: PATIENT NOT FASTINGP ERFORMED BY: ROSA MARIA Bell[address] [facility] [id number] MCH Entitic mass (RBC) 29.3 pg Normal 26.6-33.0 [facility] Work Phone: Comment on above: PATIENT NOT FASTINGP ERFORMED BY: ROSA MARIA LabDianne MontgomeryPyqmgg9104 [address] [facility] [id number] MCHC mass conc (RBC) 33.7 g/dL Normal 31.5-35.7 Comp rust [facility] Medicine Work Phone: Comment on above: PATIENT NOT FASTINGP ERFORMED BY: ROSA MARIA [facility] Uidpmg9[address] [facility] [place] [id number] MCV Entitic volume (RBC) 87 fL Normal 79-97 [facility] Work Phone: Comment on above: PATIENT NOT FASTINGP ERFORMED BY: ROSA MARIA LabConettie MontgomeryNuvlye8016 Farmer Roadblin [place] [id number] Monocytes #/vol (Bld) 0.6 {x10E3/uL} Normal 0.1-0.9 [facility] Work Phone: Comment on above: PATIENT NOT FASTINGP ERFORMED BY: ROSA MARIA [facility] Wzlvij4035 [address] [facility] [place] [id number] Monocytes/100 WBC (Bld) 11 % Normal [facility] Work Phone: Comment on above: PATIENT NOT FASTINGP ERFORMED BY: ROSA MARIA [facility] Lsazhb8042 Farmer Roadblin [place] [id number] Neutrophils #/vol (Bld) 2.6 {x10E3/uL} Normal 1.4-7.0 [facility] Work Phone: Comment on above: PATIENT NOT FASTINGP ERFORMED BY: ROSA MARIA [facility] Jlgfav6065 Farmer RoadFrye Regional Medical Centerin [place] [id number] Neutrophils/100 WBC (Bld) 48 % Normal [facility] Work Phone: Comment on above: PATIENT NOT FASTINGP ERFORMED BY: ROSA MARIA [facility] Emmxtp3217 Farmer RoadFrye Regional Medical Centerin [place] [id number] Platelets #/vol (Bld) 244 {x10E3/uL} Normal 150-379 [facility] Work Phone: Comment on above: PATIENT NOT FASTINGP ERFORMED BY: ROSA MARIA [facility] Vsjnnu6265 Farmer RoadFrye Regional Medical Centerin [place] [id number] RBC #/vol (Bld) 4.50 {x10E6/uL} Normal 3.77-5.28 Comp [facility]ensive [facility] Work Phone: Comment on above: PATIENT NOT FASTINGP ERFORMED BY: ROSA MARIA [facility] Luwnzp5456 Farmer RoadFrye Regional Medical Centerin [place] [id number] WBC #/vol (Bld) 5.4 {x10E3/uL} Normal 3.4-10.8 Compr ensive Internal Medicine Work Phone: Comment on above: PATIENT NOT FASTINGP ERFORMED BY: CB [facility] Zhfcmn3537 Farmer Roadblin [place] [id number] Comp. Metabolic Panel (14)Or dered By: Bag Machine Operator on 05-01-2017 Albumin mass conc 4.5 g/dL Normal 3.5-4.8 Compreh ensive Internal Medicine Work Phone: Comment on above: PATIENT NOT FASTINGP ERFORMED BY: ROSA MARIA [facility] Uhapun3428 [address] RoadDublin [place] [id number] Albumin/Globulin mass ratio 2.0 {ratio} Normal 1.2-2.2 [facility] Work Phone: Comment on above: PATIENT NOT FASTINGP ERFORMED BY: CB [facility] Tunefm2183 Farmer RoadDublin [place] [id number] ALP enzyme act/vol 86 [iU]/L Normal 39-117 [facility] Work Phone: Comment on above: PATIENT NOT FASTINGP ERFORMED BY: CB [facility] Pcoyyy5379 [address] RoadDublin [place] [id number] ALT enzyme act/vol 26 [iU]/L Normal 0-32 [facility] Internal [facility] Work Phone: Comment on above: PATIENT NOT FASTINGP ERFORMED BY: [facility] Nvowtq8174 Farmer Roadblin [place] [id number] AST enzyme act/vol 30 [iU]/L Normal 0-40 [facility] Work Phone: Comment on above: PATIENT NOT FASTINGP ERFORMED BY: [facility] Cbxlfb2344 Farmer RoadDublin [place] [id number] Bilirubin mass conc 0.5 mg/dL Normal 0.0-1.2 Compr [facility] Internal Medicine Work Phone: Comment on above: PATIENT NOT FASTINGP ERFORMED BY: [facility] Rwaasg2762 Farmer RoadDublin [place] [id number] Calcium mass conc 9.3 mg/dL Normal 8.7-10.3 Compreh [facility] hospitalive Internal [facility] Work Phone: Comment on above: PATIENT NOT FASTINGP ERFORMED BY: CB [facility] Khoyjs3943 Famrer RoadDublin [place] [id number] Chloride molar conc 96 mmol/L Normal 96-106 Compr ensive Internal Medicine Work Phone: Comment on above: PATIENT NOT FASTINGP ERFORMED BY: CB [facility] Llhqvj0813 Farmer RoadDublin [place] [id number] CO2 molar conc 25 mmol/L Normal 18-29 Comprehens brianne Internal Medicine Work Phone: Comment on above: PATIENT NOT FASTINGP ERFORMED BY: ROSA MARIA [facility] Lxjmus1965 [address] RoadDublin [place] [id number] Creatinine mass conc 0.75 mg/dL Normal 0.57-1.00 Comp rehensive Internal Medicine Work Phone: Comment on above: PATIENT NOT FASTINGP ERFORMED BY: CB [facility] Bayhso2766 Farmer RoadDublin [place] [id number] GFR/1.73 sq M predicted among blacks CKD-EPI vol rate/area (S/P/Bld) 90 mL/min/1.73 Normal Comprehensiv e Internal Medicine Work Phone: Comment on above: PATIENT NOT FASTINGP ERFORMED BY: ROSA MARIA [facility] Kimpgh2281 [address] RoadDublin [place] [id number] GFR/1.73 sq M predicted among non-blacks CKD-EPI vol rate/area (S/P/Bld) 78 mL/min/1.73 Normal [facility] Work Phone: Comment on above: PATIENT NOT FASTINGP ERFORMED BY: ROSA MARIA [facility] Qtywcc1918 [address] RoadDublin [place] [id number] Globulin mass conc (S) 2.3 g/dL Normal 1.5-4.5 [facility] Work Phone: Comment on above: PATIENT NOT FASTINGP ERFORMED BY: [facility] Axcvpz1034 Farmer RoadDublin [place] [id number] Glucose mass conc 95 mg/dL Normal 65-99 Compreh ensive Internal Medicine Work Phone: Comment on above: PATIENT NOT FASTINGP ERFORMED BY: CB [facility] Tsfrtc3364 [address] RoadDublin [place] [id number] Potassium molar conc 4.9 mmol/L Normal 3.5-5.2 Comp rehensive Internal Medicine Work Phone: Comment on above: PATIENT NOT FASTINGP ERFORMED BY: CB [facility] Vnsvzs4299 [address] RoadDublin [place] [id number] Protein mass conc 6.8 g/dL Normal 6.0-8.5 Compreh ensive Internal Medicine Work Phone: Comment on above: PATIENT NOT FASTINGP ERFORMED BY: ROSA MARIA Janetnettie MontgomeryPhnwna6491 [address] [facility] [place] [id number] Sodium molar conc 137 mmol/L Normal 134-144 Compreh ensive Internal Medicine Work Phone: Comment on above: PATIENT NOT FASTINGP ERFORMED BY: ROSA MARIA Montgomerylin6370 [address] [facility] [id number] Urea nitrogen mass conc 17 mg/dL Normal 8-27 [facility] Work Phone: Comment on above: PATIENT NOT FASTINGP ERFORMED BY: ROSA MARIA ElderDianne MontgomeryLjuqym3658 [address] [facility] [id number] Urea nitrogen/Creatinine mass ratio 23 mg/mg Normal 12-28 [facility] Work Phone: Comment on above: PATIENT NOT FASTINGP ERFORMED BY: ROSA MARIA Montgomerylin6370 [facility] [id number] TSHOrdered By: System Manage r on 05-01-2017 Thyrotropin Qn 4.340 {uIU/mL} Normal 0.450-4.50 0 [facility] Work Phone: Comment on above: PATIENT NOT FASTINGP ERFORMED BY: ROSA MARIA Janetnettie MontgomerySqxsfr1842 [facility] [id number] Thyroid Peroxidase (TPO) AbO rdered By: Bag Machine Operator on 05-01-2017 Thyroperoxidase Ab Qn 108 {IU/mL} Abnormal 0-34 Co mprehensive [facility] Medicine Work Phone: Comment on above: PATIENT NOT FASTINGP ERFORMED BY: ROSA MARIA ElderDianne MontgomeryGfgifb4645 [facility] [id number] Thyroxine (T4) Free, Direct, SOrdered By: Bag Machine Operator on 05-01-2017 T4 free mass conc 1.43 ng/dL Normal 0.82-1.77 Compreh ensive Internal Medicine Work Phone: Comment on above: PATIENT NOT FASTINGP ERFORMED BY: ROSA MARIA Montgomerylin6370 [facility] [id number] Triiodothyronine,Free,SerumO rdered By: Bag Machine Operator on 05-01-2017 T3 free mass conc 3.1 pg/mL Normal 2.0-4.4 Compreh ensive Internal Medicine Work Phone: Comment on above: PATIENT NOT FASTINGP ERFORMED BY: ROSA MARIA LabConettie MontgomeryKtoxzz1884 Farmer RoadDublin [place] [id number] Vitamin B12 and FolateOrdere d By: Bag Machine Operator on 05-01-2017 Cobalamin (Vitamin B12) mass conc 509 pg/mL Normal 232-1245 [facility] Work Phone: Comment on above: PATIENT NOT FASTINGP ERFORMED BY: ROSA MARIA [facility] Ikszul4459 Farmer Roadblin [place] [id number] Folate mass conc 18.9 ng/mL Normal Comprehe nsive Internal Medicine Work Phone: Comment on above: A serum folate nuha ntration of less than 3.1 ng/mL isconsidered to represent clinical deficiency. PATIENT NOT FASTINGP ERFORMED BY: ROSA MARIA LabTaaz Ghqcmp4837 Farmer TicketFireFrye Regional Medical Centerin [place] [id number] Anti-TPO Antibody (83785)Ord ered By: Bag Machine Operator on 11-03-2016 Thyroperoxidase Ab Qn 139 {IU/mL} Abnormal 0-34 Co mprehensive [facility] Work Phone: Comment on above: PATIENT NOT FASTINGP ERFORMED BY: ROSA MARIA LabTaaz Kpmtfl0279 Farmer TicketFireFrye Regional Medical Centerin [place] [id number] TPO Ab Qn 139 [IU]/mL Abnormal 0-34 [facility]; [facility] Work Phone: Comment on above: PATIENT NOT FASTINGP ERFORMED BY: Lalina [facility] Olsotj4642 Farmer Roadblin [place] [id number] T3, FREE (TRIDOTHYRONINE) ([id number] 4596)Ordered By: Bag Machine Operator on 11-03-2016 T3 free mass conc 3.1 pg/mL Normal 2.0-4.4 Compreh ensive Internal Medicine Work Phone: Comment on above: PATIENT NOT FASTINGP ERFORMED BY: ROSA MARIA LabCo Hetpuq3655 [facility] [id number] T4, FREE (THYROXINE) (20343) Ordered By: Bag Machine Operator on 11-03-2016 T4 free mass conc 1.24 ng/dL Normal 0.82-1.77 Compreh ensive Internal Medicine Work Phone: Comment on above: PATIENT NOT FASTINGP ERFORMED BY: LabCoVirtua VoorheesAcahma9691 [facility] [id number] TSH (17714)Ordered By: Theo m [employer] on 11-03-2016 Thyrotropin Qn 3.570 {uIU/mL} Normal 0.450-4.50 0 [facility] Work Phone: Comment on above: PATIENT NOT FASTINGP ERFORMED BY: LabCoVirtua VoorheesDlpbee8069 [facility] [id number] Catecholamines,24-Hour Urine (71619)Ordered By: Bag Machine Operator on 09-03-2016 Dopamine mass conc (U) 70 ug/L Normal [facility] Work Phone: Comment on above: send to Dr. Baires; PATIENT NOT FASTINGPERFORMED BY: [facility] Uwbepzjitt[address] [id number] Information: START 09/02/2016@6AM Dopamine mass/time (24H U) 172 {ug/24_hr} Normal 0-510 [facility] Work Phone: Comment on above: send to Dr. Baires; PATIENT NOT FASTINGPERFORMED BY: [facility] Alccozlmyz109[address] [id number] Information: START 09/02/2016@6AM Epinephrine mass conc (U) 2 ug/L Normal [facility] Work Phone: Comment on above: send to Dr. Baires; PATIENT NOT FASTINGPERFORMED BY: [facility] Poyxdybkzb425[address] [id number] Information: START 09/02/2016@6AM Epinephrine mass/time (24H U) 5 {ug/24_hr} Normal 0-20 [facility] Work Phone: Comment on above: send to Dr. Baires; PATIENT NOT FASTINGPERFORMED BY: [facility] Zljwowfxhz[address] [id number] Information: START 09/02/2016@6AM Norepinephrine mass conc (U) 6 ug/L Normal [facility] Work Phone: Comment on above: send to Dr. Baires; PATIENT NOT FASTINGPERFORMED BY: [facility] [address] [id number] Information: START 09/02/2016@6AM Norepinephrine mass/time (24H U) 15 {ug/24_hr} Normal 0-135 [facility] Work Phone: Comment on above: send to Dr. Baires; PATIENT NOT FASTINGPERFORMED BY: [facility] Xqqrrnzpvp703[address] [id number] Information: START 09/02/2016@6AM METANEPHRINES (22288)Ordered By: Bag Machine Operator on 09-03-2016 Metanephrine mass/time (24H U) 135 {ug/24_hr} Normal 45-290 [facility] Work Phone: Comment on above: (Hypertensive) >17 y ears 11 months: 35 - [address] Baires; PATIENT NOT FASTINGPERFORMED BY: [employer] [facility] Ncnslmmlck[address] [id number] Metanephrines mass conc (24H U) 55 ug/L Normal [facility] Work Phone: Comment on above: send to Dr. Baires; PATIENT NOT FASTINGPERFORMED BY: [facility] Rtaivbvdip10[address] [id number] Normetanephrine mass conc (24H U) 100 ug/L Normal [facility] Work Phone: Comment on above: send to Dr. Baires; PATIENT NOT FASTINGPERFORMED BY: [facility] Ytdywjwrsg[address] [id number] Normetanephrine mass/time (24H U) 245 {ug/24_hr} Normal 82-500 [facility] Work Phone: Comment on above: (Hypertensive) >17 y ears 11 months: 110 - [address] Baires; PATIENT NOT FASTINGPERFORMED BY: [employer] [id number] URINE VMA ([id number])Ordered By: Bag Machine Operator on 09-03-2016 Vanillylmandelate mass conc (U) 1.6 mg/L Normal [facility] Work Phone: Comment on above: send to ; PATIENT NOT FASTINGPERFORMED BY: [employer] [id number] Vanillylmandelate mass/time (24H U) 3.9 {mg/24_hr} Normal 0.0-7.5 [facility] Work Phone: Comment on above: This test was develo ped and its performance characteristicsdetermined by [employer]. It has not been cleared or approvedby the Food and Drug Administration. send to ; PATIENT NOT FASTINGPERFORMED BY: [employer] MediaChristina [place] 758517 [facility] [id number] CBC W/AUTO DIFF WBC (52545)O rdered By: Bag Machine Operator on 08-28-2016 Basophils #/vol (Bld) 0.0 {x10E3/uL} Normal 0.0-0.2 [facility] Work Phone: Comment on above: PATIENT NOT FASTINGP ERFORMED BY: [employer] Ilhjeq5348 [facility] [id number] Basophils (Bld) [#/Vol] 0.0 10*3/uL Normal 0.0-0.2 [facility]; [facility] Work Phone: Comment on above: PATIENT NOT FASTINGP ERFORMED BY: [employer] Wnwmmz3133 [facility] [id number] Basophils/100 WBC (Bld) 0 % Normal [facility] Work Phone: Comment on above: PATIENT NOT FASTINGP ERFORMED BY: [employer] Zjfepg4929 [facility] [id number] Eosinophils #/vol (Bld) 0.1 {x10E3/uL} Normal 0.0-0.4 [facility] Work Phone: Comment on above: PATIENT NOT FASTINGP ERFORMED BY: CB [facility] Gxshdi0715 [address] RoadDublin [place] [id number] Eosinophils (Bld) [#/Vol] 0.1 10*3/uL Normal 0.0-0.4 [facility]; [facility] Work Phone: Comment on above: PATIENT NOT FASTINGP ERFORMED BY: CB [facility] Wsnjly1461 [address] RoadDublin [place] [id number] Eosinophils/100 WBC (Bld) 1 % Normal [facility] Work Phone: Comment on above: PATIENT NOT FASTINGP ERFORMED BY: CB [facility] Whbbuq3364 Farmer RoadFrye Regional Medical Centerin [place] [id number] Erythrocyte distribution width Ratio (RBC) 13.6 % Normal 12.3-15.4 [facility] Work Phone: Comment on above: PATIENT NOT FASTINGP ERFORMED BY: CB [facility] Yqnqtd3806 [address] [facility] [place] [id number] Hematocrit Volume Fraction (Bld) 37.3 % Normal 34.0-46.6 [facility] Work Phone: Comment on above: PATIENT NOT FASTINGP ERFORMED BY: CB [facility] Aafmlx4825 [address] [facility] [place] [id number] Hemoglobin mass conc (Bld) 12.9 g/dL Normal 11.1-15.9 [facility] Work Phone: Comment on above: PATIENT NOT FASTINGP ERFORMED BY: CB [facility] Fvzzyv7543 [address] RoadDublin [place] [id number] Immature granulocytes #/vol (Bld) 0.0 {x10E3/uL} Normal 0.0-0.1 [facility] Work Phone: Comment on above: PATIENT NOT FASTINGP ERFORMED BY: CB [facility] Mkgdws7456 [address] RoadDublin [place] [id number] Immature granulocytes (Bld) [#/Vol] 0.0 10*3/uL Normal 0.0-0.1 [facility]; [facility] Work Phone: Comment on above: PATIENT NOT FASTINGP ERFORMED BY: ROSA MARIA [facility] Hhxkbp7964 [address] [facility] [id number] Immature granulocytes/100 WBC (Bld) 0 % Normal [facility] Work Phone: Comment on above: PATIENT NOT FASTINGP ERFORMED BY: [facility] Bemecs6742 [address] [facility] [id number] Lymphocytes #/vol (Bld) 1.6 {x10E3/uL} Normal 0.7-3.1 [facility] Work Phone: Comment on above: PATIENT NOT FASTINGP ERFORMED BY: LabCoGallup Indian Medical CenterKosvbd6304 [address] [facility] [id number] Lymphocytes (Bld) [#/Vol] 1.6 10*3/uL Normal 0.7-3.1 [facility]; [facility] Work Phone: Comment on above: PATIENT NOT FASTINGP ERFORMED BY: LabCoVirtua VoorheesBjfasq6831 [address] [facility] [id number] Lymphocytes/100 WBC (Bld) 20 % Normal [facility] Work Phone: Comment on above: PATIENT NOT FASTINGP ERFORMED BY: LabCoVirtua VoorheesRidvhh5059 [facility] [id number] MCH Entitic mass (RBC) 28.9 pg Normal 26.6-33.0 [facility] Work Phone: Comment on above: PATIENT NOT FASTINGP ERFORMED BY: Lab[facility] Dinpjr0127 [address] [facility] [id number] MCHC mass conc (RBC) 34.6 g/dL Normal 31.5-35.7 [facility] Internal Medicine Work Phone: Comment on above: PATIENT NOT FASTINGP ERFORMED BY: [facility] Dacqqr9377 [address] [facility] [id number] MCV Entitic volume (RBC) 84 fL Normal 79-97 [facility] Work Phone: Comment on above: PATIENT NOT FASTINGP ERFORMED BY: CB [facility] Lojpec0511 [address] RoadDublin [place] [id number] Monocytes #/vol (Bld) 0.5 {x10E3/uL} Normal 0.1-0.9 [facility] Work Phone: Comment on above: PATIENT NOT FASTINGP ERFORMED BY: CB [facility] Gkmnqy3309 [address] RoadDublin [place] [id number] Monocytes (Bld) [#/Vol] 0.5 10*3/uL Normal 0.1-0.9 [facility]; [facility] Work Phone: Comment on above: PATIENT NOT FASTINGP ERFORMED BY: CB [facility] Odcpxi7667 [address] RoadDublin [place] [id number] Monocytes/100 WBC (Bld) 6 % Normal [facility] Work Phone: Comment on above: PATIENT NOT FASTINGP ERFORMED BY: CB [facility] Akzzyc0192 [address] RoadDublin [place] [id number] Neutrophils #/vol (Bld) 5.5 {x10E3/uL} Normal 1.4-7.0 [facility] Work Phone: Comment on above: PATIENT NOT FASTINGP ERFORMED BY: CB [facility] Pxxucn2491 [address] RoadDublin [place] [id number] Neutrophils (Bld) [#/Vol] 5.5 10*3/uL Normal 1.4-7.0 [facility]; [facility] Work Phone: Comment on above: PATIENT NOT FASTINGP ERFORMED BY: CB [facility] Hyooby0025 [address] RoadDublin [place] [id number] Neutrophils/100 WBC (Bld) 73 % Normal [facility] Work Phone: Comment on above: PATIENT NOT FASTINGP ERFORMED BY: CB [facility] Drxjor1960 [address] RoadDublin [place] [id number] Platelets #/vol (Bld) 236 {x10E3/uL} Normal 150-379 [facility] Work Phone: Comment on above: PATIENT NOT FASTINGP ERFORMED BY: CB [facility] Hibung0570 [address] RoadDublin [place] [id number] Platelets (Bld) [#/Vol] 236 10*3/uL Normal 150-379 [facility]; [facility] Work Phone: Comment on above: PATIENT NOT FASTINGP ERFORMED BY: CB [facility] Yeidzf8328 [address] RoadDublin [place] [id number] RBC #/vol (Bld) 4.46 {x10E6/uL} Normal 3.77-5.28 Comp rust [facility] Work Phone: Comment on above: PATIENT NOT FASTINGP ERFORMED BY: CB [facility] Zzmhuj5500 [address] RoadDublin [place] [id number] RBC (Bld) [#/Vol] 4.46 10*6/uL Normal 3.77-5.28 Compr ensive [facility] Medicine; [facility] Work Phone: Comment on above: PATIENT NOT FASTINGP ERFORMED BY: CB [facility] Liikpt9[address] RoadDublin [place] [id number] WBC #/vol (Bld) 7.6 {x10E3/uL} Normal 3.4-10.8 Compr ensive [facility] Medicine Work Phone: Comment on above: PATIENT NOT FASTINGP ERFORMED BY: CB [facility] Bhmefr2205 [address] RoadDublin [place] [id number] WBC (Bld) [#/Vol] 7.6 10*3/uL Normal 3.4-10.8 Compre [facility]; [facility] Work Phone: Comment on above: PATIENT NOT FASTINGP ERFORMED BY: CB [facility] Clhynx8[address] RoadDublin [place] [id number] METABOLIC PANEL, COMPREHENSI VE ([id number])Ordered By: Bag Machine Operator on 08-28-2016 Albumin mass conc 4.5 g/dL Normal 3.5-4.8 Compreh [facility] Work Phone: Comment on above: PATIENT NOT FASTINGP ERFORMED BY: ROSA MARIA [facility] Urqygu4084 [address] RoadDublin [place] [id number] Albumin/Globulin mass ratio 1.8 {ratio} Normal 1.2-2.2 [facility] Work Phone: Comment on above: PATIENT NOT FASTINGP ERFORMED BY: CB [facility] Opszog4[address] RoadDublin [place] [id number] ALP [Catalytic activity/Vol] 87 U/L Normal 39-117 [facility]; [facility] Work Phone: Comment on above: PATIENT NOT FASTINGP ERFORMED BY: CB [facility] Nizdmr18[address] RoadDublin [place] [id number] ALP enzyme act/vol 87 [iU]/L Normal 39-117 [facility] Internal Medicine Work Phone: Comment on above: PATIENT NOT FASTINGP ERFORMED BY: ROSA MARIA [facility] Ydglkg8812 [address] RoadDublin [place] [id number] ALT [Catalytic activity/Vol] 76 U/L Abnormal 0-32 [facility] Internal Medicine; [facility] Work Phone: Comment on above: PATIENT NOT FASTINGP ERFORMED BY: ROSA MARIA [facility] Rjywke94[address] RoadDublin [place] [id number] ALT enzyme act/vol 76 [iU]/L Abnormal 0-32 [facility] Internal Medicine Work Phone: Comment on above: PATIENT NOT FASTINGP ERFORMED BY: CB [facility] Dcqnnz5593 [address] RoadDublin [place] [id number] AST [Catalytic activity/Vol] 68 U/L Abnormal 0-40 [facility] Internal Medicine; [facility] Internal [facility] Work Phone: Comment on above: PATIENT NOT FASTINGP ERFORMED BY: CB [facility] Gcgywn3300 [address] RoadDublin [place] [id number] AST enzyme act/vol 68 [iU]/L Abnormal 0-40 [facility] Internal Medicine Work Phone: Comment on above: PATIENT NOT FASTINGP ERFORMED BY: CB [facility] Clrrxe6472 [address] RoadDublin [place] [id number] Bilirubin mass conc 0.3 mg/dL Normal 0.0-1.2 Compr ehensive Internal Medicine Work Phone: Comment on above: PATIENT NOT FASTINGP ERFORMED BY: ROSA MARIA Bell[address] [facility] [place] [id number] Calcium mass conc 9.1 mg/dL Normal 8.7-10.3 Compreh ensive Internal Medicine Work Phone: Comment on above: PATIENT NOT FASTINGP ERFORMED BY: ROSA MARIA LabConettie MontgomeryBhqegj[address] [facility] [id number] Chloride molar conc 94 mmol/L Abnormal 96-106 Compr ehensive Internal Medicine Work Phone: Comment on above: PATIENT NOT FASTINGP ERFORMED BY: ROSA MARIA LabDianne MontgomeryNgawem0562 [facility] [id number] CO2 molar conc 21 mmol/L Normal 18-29 Comprehens brianne Internal Medicine Work Phone: Comment on above: PATIENT NOT FASTINGP ERFORMED BY: ROSA MARIA Montgomerylin[address] [facility] [id number] Creatinine mass conc 0.65 mg/dL Normal 0.57-1.00 Comp rehensive Internal Medicine Work Phone: Comment on above: PATIENT NOT FASTINGP ERFORMED BY: ROSA MARIA Montgomerylin[address] [facility] [id number] GFR/1.73 sq M predicted among blacks CKD-EPI vol rate/area (S/P/Bld) 100 mL/min/1.73 Normal Comprehensiv e Internal Medicine Work Phone: Comment on above: PATIENT NOT FASTINGP ERFORMED BY: ROSA MARIA [facility] Jsfuej[address] [facility] [place] [id number] GFR/1.73 sq M predicted among non-blacks CKD-EPI vol rate/area (S/P/Bld) 87 mL/min/1.73 Normal [facility] Work Phone: Comment on above: PATIENT NOT FASTINGP ERFORMED BY: ROSA MARIA [facility] Ghcohk[address] [facility] [place] [id number] Globulin mass conc (S) 2.5 g/dL Normal 1.5-4.5 [facility] Work Phone: Comment on above: PATIENT NOT FASTINGP ERFORMED BY: ROSA MARIA Darin Bell6370 [facility] [id number] Glucose mass conc 131 mg/dL Abnormal 65-99 Compreh ensive Internal Medicine Work Phone: Comment on above: PATIENT NOT FASTINGP ERFORMED BY: ROSA MARIA Janet Aosmey7614 [facility] [id number] Potassium molar conc 3.8 mmol/L Normal 3.5-5.2 Comp rehensive Internal Medicine Work Phone: Comment on above: PATIENT NOT FASTINGP ERFORMED BY: ROSA MARIA Darin Montgomerylin6370 [facility] [id number] Protein mass conc 7.0 g/dL Normal 6.0-8.5 Compreh ensive Internal Medicine Work Phone: Comment on above: PATIENT NOT FASTINGP ERFORMED BY: ROSA MARIA Janet Wefodv8733 [facility] [id number] Sodium molar conc 136 mmol/L Normal 134-144 Compreh ensive Internal Medicine Work Phone: Comment on above: PATIENT NOT FASTINGP ERFORMED BY: ROSA MARIA Janet Npnjoy6482 [facility] [id number] Urea nitrogen mass conc 13 mg/dL Normal 8-27 [facility] Work Phone: Comment on above: PATIENT NOT FASTINGP ERFORMED BY: ROSA MARIA JanetVirtua VoorheesAmshkt1905 [facility] [id number] Urea nitrogen/Creatinine mass ratio 20 mg/mg Normal 12-28 [facility] Work Phone: Comment on above: PATIENT NOT FASTINGP ERFORMED BY: ROSA MARIA Janet Ofogpu4728 [facility] [id number] Microscopic ExaminationOrder ed By: Bag Machine Operator on 08-28-2016 Bacteria LM.HPF #/area (Urine sed) None seen Normal [facility] Work Phone: Comment on above: PATIENT NOT FASTINGP ERFORMED BY: ROSA MARIA [facility] Lwncnn6364 [address] RoadDublin [place] [id number] Epithelial cells LM.HPF #/area (Urine sed) None seen Normal 0 - 10 [facility] Work Phone: Comment on above: PATIENT NOT FASTINGP ERFORMED BY: CB [facility] Sipgnn0463 [address] RoadDublin [place] [id number] RBC LM.HPF #/area (Urine sed) 0-2 Normal 0 - 2 [facility] Work Phone: Comment on above: PATIENT NOT FASTINGP ERFORMED BY: CB [facility] Yrfrwb7358 [address] RoadDublin [place] [id number] WBC LM.HPF #/area (Urine sed) None seen Normal 0 - 5 [facility] Work Phone: Comment on above: PATIENT NOT FASTINGP ERFORMED BY: ROSA MARIA [facility] Irwenc14[address] RoadDublin [place] [id number] TSH ([id number])Ordered By: Syste m [employer] on 08-28-2016 Thyrotropin Qn 1.820 {uIU/mL} Normal 0.450-4.50 0 [facility] Work Phone: Comment on above: PATIENT NOT FASTINGP ERFORMED BY: ROSA MARIA [facility] Okkdzv6083 [address] RoadDublin [place] [id number] URINALYSIS, W/ MICRO ([id number]) Ordered By: Bag Machine Operator on 08-28-2016 Appearance Nom (U) Clear Normal Compre hensive Internal Medicine Work Phone: Comment on above: PATIENT NOT FASTINGP ERFORMED BY: CB [facility] Mgduvn4075 [address] RoadDublin [place] [id number] Bilirubin Ql (U) Negative Normal Comprehe nsive Internal Medicine Work Phone: Comment on above: PATIENT NOT FASTINGP ERFORMED BY: CB [facility] Hmtaqo3535 [address] RoadDublin [place] [id number] Bilirubin Ql (U) Negative Normal Comprehe nsive Internal Medicine; [facility] Work Phone: Comment on above: PATIENT NOT FASTINGP ERFORMED BY: CB [facility] Qjypcb9420 [address] RoadDublin [place] [id number] Color Nom (U) Yellow Normal Comprehensi ve Internal Medicine Work Phone: Comment on above: PATIENT NOT FASTINGP ERFORMED BY: ROSA MARIA Darin Iqlitq85[address] RoadDublin [place] [id number] Glucose Ql (U) Negative Normal Comprehens brianne Internal Medicine Work Phone: Comment on above: PATIENT NOT FASTINGP ERFORMED BY: ROSA MARIA Janetnettie MontgomeryVtsytu8284 Farmer RoadFrye Regional Medical Centerin [place] [id number] Glucose Ql (U) Negative Normal Comprehens brianne [facility] Medicine; [facility] Work Phone: Comment on above: PATIENT NOT FASTINGP ERFORMED BY: ROSA MARIA Janetnettie MontgomeryXrzmjz4330 [address] RoadHampton [place] [id number] Hemoglobin Ql (U) Negative Normal Compreh ensive Internal Medicine Work Phone: Comment on above: PATIENT NOT FASTINGP ERFORMED BY: ROSA MARIA Janetnettie MontgomeryNbddhl7719 [address] RoadHampton [place] [id number] Hemoglobin Ql (U) Negative Normal Compreh ensive Internal Medicine; [facility] Work Phone: Comment on above: PATIENT NOT FASTINGP ERFORMED BY: ROSA MARIA ElderDianne MontgomeryBuuvjc7917 [address] RoadHampton [place] [id number] Ketones Ql (U) Negative Normal Comprehens brianne Internal Medicine Work Phone: Comment on above: PATIENT NOT FASTINGP ERFORMED BY: ROSA MARIA Janetnettie MontgomeryZbavpd7810 [address] RoadDuin [place] [id number] Ketones Ql (U) Negative Normal Comprehens brianne [facility] Medicine; [facility] Work Phone: Comment on above: PATIENT NOT FASTINGP ERFORMED BY: ROSA MARIA ElderDianne MontgomeryFvpfkz7956 [address] RoadDublin [place] [id number] Leukocyte esterase Test strip Ql (U) Negative Normal [facility] Work Phone: Comment on above: PATIENT NOT FASTINGP ERFORMED BY: ROSA MARIA ElderDianne MontgomeryQnrzkf7080 Farmer RoadFrye Regional Medical Centerin [place] [id number] Leukocyte esterase Test strip Ql (U) Negative Normal [facility]; [facility] Work Phone: Comment on above: PATIENT NOT FASTINGP ERFORMED BY: ROSA MARIA Bell[address] RoadDublin [place] [id number] Microscopic observation LM Nom (Urine sed) MICRON Normal [facility] Work Phone: Comment on above: Microscopic follows if indicated. PATIENT NOT FASTINGP ERFORMED BY: ROSA MARIA Bell6[address] Roadblin [place] [id number] Microscopic observation LM Nom (Urine sed) See below: Normal [facility] Work Phone: Comment on above: Microscopic was ajay cated and was performed. PATIENT NOT FASTINGP ERFORMED BY: ROSA MARIA Montgomerylin[address] [facility] [id number] Nitrite Ql (U) Negative Normal Comprehens brianne Internal Medicine Work Phone: Comment on above: PATIENT NOT FASTINGP ERFORMED BY: ROSA MARIA Bell[address] [facility] [id number] Nitrite Ql (U) Negative Normal Comprehens brianne [facility] Medicine; [facility] Work Phone: Comment on above: PATIENT NOT FASTINGP ERFORMED BY: ROSA MARIA [address] [facility] [id number] pH (U) 6.0 [pH] Normal 5.0-7.5 [facility] Work Phone: Comment on above: PATIENT NOT FASTINGP ERFORMED BY: ROSA MARIA Bell[address] [facility] [id number] Protein Ql (U) Negative Normal Comprehens brianne Internal Medicine Work Phone: Comment on above: PATIENT NOT FASTINGP ERFORMED BY: ROSA MARIA Montgomerylin6[address]Dublin [place] [id number] Protein Ql (U) Negative Normal Comprehens brianne [facility] Medicine; [facility] Work Phone: Comment on above: PATIENT NOT FASTINGP ERFORMED BY: ROSAM ARIA Montgomerylin[address] [facility]in [place] [id number] Specific gravity Relative Density (U) <=1.005 Abnormal 1.005-1.03 0 [facility] Work Phone: Comment on above: PATIENT NOT FASTINGP ERFORMED BY: [facility] Ukjwpm7177 [address] RoadDublin [place] [id number] Urobilinogen (U) [Mass/Vol] 0.2 mg/dL Normal 0.2-1.0 [facility]; [facility] Work Phone: Comment on above: PATIENT NOT FASTINGP ERFORMED BY: [facility] Emomco6984 [address] Roadblin [place] [id number] Urobilinogen Test strip mass conc (U) 0.2 mg/dL Normal 0.2-1.0 Comprehensiv e Internal Medicine Work Phone: Comment on above: PATIENT NOT FASTINGP ERFORMED BY: [facility] Nxykuc[address] [facility] [id number] Fecal Occult Blood , Office ([id number])Ordered By: Schuyler Bhakta on 03-21-2016 Hemoglobin.gastrointe stinal Ql (St) Negative Normal [facility] Work Phone: Hemoglobin.gastrointe stinal Ql (Stl) Negative Normal [facility]; [facility] Work Phone: CALCIFEDIOL ([id number])Ordered B y: Bag Machine Operator on 02-01-2016 25-Hydroxyvitamin D2+25-Hydroxyvitamin D3 mass conc 46.6 ng/mL Normal 30.0-100.0 [facility] Work Phone: Comment on above: Vitamin D deficiency has been defined by the [place] of[place]icine and an Endocrine Society practice guideline as alevel of serum 25-OH vitamin D less than 20 ng/mL (1,2).The Endocrine Society went on to further define vitamin Dinsufficiency as a level between 21 and 29 ng/mL (2).1. IOM ([place] of Medicine). 2010. Dietary reference intakes for calcium and D. [place]: The National Academies Press.2. Quentin MF, Thania CUENCA, Raciel BUCHANAN, et al. Evaluation, treatment, and prevention of vitamin D deficiency: an Endocrine Society clinical practice guideline. JCEM. 2010; 96(7):1911-30. PATIENT NOT FASTINGP ERFORMED BY: ROSA MARIA [facility] Whqdro1220 [address] RoadDublin [place] [id number] T3, FREE (TRIDOTHYRONINE) ([id number])Ordered By: Bag Machine Operator on 02-01-2016 T3 free mass conc 2.9 pg/mL Normal 2.0-4.4 Compreh ensive Internal Medicine Work Phone: Comment on above: PATIENT NOT FASTINGP ERFORMED BY: ROSA MARIA [facility] Wljewa5457 [address] RoadDublin [place] [id number] T4, FREE (THYROXINE) ([id number]) Ordered By: Bag Machine Operator on 02-01-2016 T4 free mass conc 1.23 ng/dL Normal 0.82-1.77 Compreh ensive Internal Medicine Work Phone: Comment on above: PATIENT NOT FASTINGP ERFORMED BY: ROSA MARIA [facility] Risupb2138 [address] RoadDublin [place] [id number] TSH ([id number])Ordered By: Syste m Certified [employer] on 02-01-2016 Thyrotropin Qn 2.380 {uIU/mL} Normal 0.450-4.50 0 [facility] Work Phone: Comment on above: PATIENT NOT FASTINGP ERFORMED BY: ROSA MARIA [facility] Xeppfb8578 [address] RoadDublin [place] [id number] VITAMIN B12 AND FOLATES (826 07)Ordered By: Bag Machine Operator on 02-01-2016 Cobalamin (Vitamin B12) mass conc 1261 pg/mL Abnormal 211-946 [facility] Work Phone: Comment on above: PATIENT NOT FASTINGP ERFORMED BY: CB [facility] Hlycdt7450 [address] RoadDublin [place] [id number] Folate mass conc ng/mL Normal Comprehe nsive Internal Medicine Work Phone: Comment on above: A serum folate nuha ntration of less than 3.1 ng/mL isconsidered to represent clinical deficiency. PATIENT NOT FASTINGP ERFORMED BY: [employer] vendome [address]bl[place] [id number] CALCIFIDIOL (96472) VIT D 25 Ordered By: Bag Machine Operator on 07-03-2015 25-Hydroxyvitamin D2+25-Hydroxyvitamin D3 mass conc 50.0 ng/mL Normal 30.0-100.0 [facility] Work Phone: Comment on above: Vitamin D deficiency has been defined by the [place] ofSelect [facility] Shawcine and an Endocrine Society practice guideline as alevel of serum 25-OH vitamin D less than 20 ng/mL (1,2).The Endocrine Society went on to further define vitamin Dinsufficiency as a level between 21 and 29 ng/mL (2).1. IOM ([place] of Medicine). 2010. Dietary reference intakes for calcium and D. [place]: The National Academies Press.2. Quentin MF, Thania CUENCA, Raciel BUCHANAN, et al. Evaluation, treatment, and prevention of vitamin D deficiency: an Endocrine Society clinical practice guideline. JCEM. 2010; 96(7):1911-30. PATIENT WAS FASTINGP ERFORMED BY: [employer]6370 [address] [id number] CBC (AUTO) (16961)Ordered By : Bag Machine Operator on 07-03-2015 Erythrocyte distribution width Ratio (RBC) 13.6 % Normal 12.3-15.4 [facility] Work Phone: Comment on above: PATIENT WAS FASTINGP ERFORMED BY: [employer] vendome [address] [id number] Hematocrit Volume Fraction (Bld) 38.2 % Normal 34.0-46.6 [facility] Work Phone: Comment on above: PATIENT WAS FASTINGP ERFORMED BY: [employer]Dublin [place] [id number] Hemoglobin mass conc (Bld) 12.5 g/dL Normal 11.1-15.9 [facility] Work Phone: Comment on above: PATIENT WAS FASTINGP ERFORMED BY: [employer]6[address]Dublin [place] [id number] MCH Entitic mass (RBC) 28.9 pg Normal 26.6-33.0 [facility] Work Phone: Comment on above: PATIENT WAS FASTINGP ERFORMED BY: ROSA MARIA LabConettie MontgomeryUvdvye3295 [address] RoadDublin [place] [id number] MCHC mass conc (RBC) 32.7 g/dL Normal 31.5-35.7 Comp [facility] Work Phone: Comment on above: PATIENT WAS FASTINGP ERFORMED BY: CB [facility] Pogwkx2196 [address] RoadDublin [place] [id number] MCV Entitic volume (RBC) 88 fL Normal 79-97 [facility] Work Phone: Comment on above: PATIENT WAS FASTINGP ERFORMED BY: ROSA MARIA [facility] Sbujnh0445 [address] RoadDublin [place] [id number] Platelets #/vol (Bld) 251 {x10E3/uL} Normal 150-379 [facility] Work Phone: Comment on above: PATIENT WAS FASTINGP ERFORMED BY: ROSA MARIA [facility] Fcucsh2790 [address] RoadDublin [place] [id number] Platelets (Bld) [#/Vol] 251 10*3/uL Normal 150-379 [facility]; [facility] Work Phone: Comment on above: PATIENT WAS FASTINGP ERFORMED BY: ROSA MARIA [facility] Ebhoat5583 [address] RoadDublin [place] [id number] RBC #/vol (Bld) 4.32 {x10E6/uL} Normal 3.77-5.28 [facility] Work Phone: Comment on above: PATIENT WAS FASTINGP ERFORMED BY: CB [facility] Vadvdk0573 [address] RoadDublin [place] [id number] RBC (Bld) [#/Vol] 4.32 10*6/uL Normal 3.77-5.28 [facility]erens[facility]; [facility] Work Phone: Comment on above: PATIENT WAS FASTINGP ERFORMED BY: CB [facility] Rjhliq3146 [address] RoadDublin [place] [id number] WBC #/vol (Bld) 5.3 {x10E3/uL} Normal 3.4-10.8 Compr [facility] Work Phone: Comment on above: PATIENT WAS FASTINGP ERFORMED BY: ROSA MARIA ElderDianne Tqnswf2630 [facility] [id number] WBC (Bld) [#/Vol] 5.3 10*3/uL Normal 3.4-10.8 Compre hensive Internal Medicine; [facility] Work Phone: Comment on above: PATIENT WAS FASTINGP ERFORMED BY: ROSA MARIA ElderDianne MontgomeryIccjdn0601 [facility] [id number] LIPID PANEL ([id number])Ordered B y: Bag Machine Operator on 07-03-2015 Cholesterol in HDL mass conc 90 mg/dL Normal [facility] Work Phone: Comment on above: According to ATP-III Guidelines, HDL-C >59 mg/dL is considered anegative risk factor for CHD. PATIENT WAS FASTINGP ERFORMED BY: ROSA MARIA ElderDianne Pdebgv1105 [facility] [id number] Cholesterol in LDL mass conc 92 mg/dL Normal 0-99 [facility] Work Phone: Comment on above: PATIENT WAS FASTINGP ERFORMED BY: ROSA MARIA ElderDianne Tktrpy7292 [facility] [id number] Cholesterol in LDL/Cholesterol in HDL mass ratio 1.0 {ratio_units} Normal 0.0-3.2 [facility] Work Phone: Comment on above: LDL/HDL Ratio Men Wo men 1/2 Avg.Risk 1.0 1.5 Avg.Risk 3.6 3.2 2X Avg.Risk 6.2 5.0 3X Avg.Risk 8.0 6.1 PATIENT WAS FASTINGP ERFORMED BY: ROSA MARIA Janetnettie Ycxgjr6948 [facility] [id number] Cholesterol in VLDL mass conc 19 mg/dL Normal 5-40 [facility] Work Phone: Comment on above: PATIENT WAS FASTINGP ERFORMED BY: ROSA MARIA ElderDianne Esljzd9586 [facility] [id number] Cholesterol mass conc 201 mg/dL Abnormal 100-199 Com prehensive Internal Medicine Work Phone: Comment on above: PATIENT WAS FASTINGP ERFORMED BY: ROSA MARIA Bell6370 [facility] [id number] Triglyceride mass conc 93 mg/dL Normal 0-149 [facility] Work Phone: Comment on above: PATIENT WAS FASTINGP ERFORMED BY: ROSA MARIA Bell6370 [facility] [id number] METABOLIC PANEL, COMPREHENSI VE ([id number])Ordered By: Bag Machine Operator on 07-03-2015 Albumin mass conc 4.4 g/dL Normal 3.5-4.8 Compreh ensive Internal Medicine Work Phone: Comment on above: PATIENT WAS FASTINGP ERFORMED BY: ROSA MARIA Bell6370 [facility] [id number] Information: [id number] Albumin/Globulin mass ratio 1.9 {ratio} Normal 1.1-2.5 [facility] Work Phone: Comment on above: PATIENT WAS FASTINGP ERFORMED BY: ROSA MARIA Bell6370 [facility] [id number] Information: [id number] ALP [Catalytic activity/Vol] 78 U/L Normal 39-117 [facility]; [facility] Work Phone: Comment on above: PATIENT WAS FASTINGP ERFORMED BY: ROSA MARIA Gonzales Ggtkjp1623 [facility] [id number] Information: [id number] ALP enzyme act/vol 78 [iU]/L Normal 39-117 Compre [facility] Internal Medicine Work Phone: Comment on above: PATIENT WAS FASTINGP ERFORMED BY: ROSA MARIA Montgomerylin6370 [facility] [id number] Information: [id number] ALT [Catalytic activity/Vol] 28 U/L Normal 0-32 [facility]; [facility] Work Phone: Comment on above: PATIENT WAS FASTINGP ERFORMED BY: ROSA MARIA [facility] Qxaakh5462 [address] RoadDublin [place] [id number] Information: [id number] ALT enzyme act/vol 28 [iU]/L Normal 0-32 [facility] Internal Medicine Work Phone: Comment on above: PATIENT WAS FASTINGP ERFORMED BY: ROSA MARIA [facility] Tsujil8278 [address] RoadDublin [place] [id number] Information: [id number] AST [Catalytic activity/Vol] 30 U/L Normal 0-40 [facility]; [facility] Work Phone: Comment on above: PATIENT WAS FASTINGP ERFORMED BY: ROSA MARIA [facility] Rhurmo6192 [address] RoadDublin [place] [id number] Information: [id number] AST enzyme act/vol 30 [iU]/L Normal 0-40 [facility] Internal Medicine Work Phone: Comment on above: PATIENT WAS FASTINGP ERFORMED BY: ROSA MARIA [facility] Gzjhkh1181 Farmer RoadFrye Regional Medical Centerin [place] [id number] Information: [id number] Bilirubin mass conc 0.7 mg/dL Normal 0.0-1.2 Compr [facility] Internal Medicine Work Phone: Comment on above: PATIENT WAS FASTINGP ERFORMED BY: ROSA MARIA [facility] Fbupyc[address] [facility] [place] [id number] Information: [id number] Calcium mass conc 9.2 mg/dL Normal 8.7-10.3 Compreh [facility] Internal Medicine Work Phone: Comment on above: PATIENT WAS FASTINGP ERFORMED BY: CB [facility] Hbvivl3132 [address] RoadDublin [place] [id number] Information: [id number] Chloride molar conc 97 mmol/L Normal 97-108 [facility] Internal Medicine Work Phone: Comment on above: PATIENT WAS FASTINGP ERFORMED BY: ROSA MARIA [facility] Yzhtod[address] [facility] [place] [id number] Information: 113715,H39696 CO2 molar conc 24 mmol/L Normal 18-29 Comprehens brianne Internal Medicine Work Phone: Comment on above: PATIENT WAS FASTINGP ERFORMED BY: ROSA MARIA [facility]6370 [facility] [id number] Information: 847119,D11428 Creatinine mass conc 0.67 mg/dL Normal 0.57-1.00 Comp rehensive Internal Medicine Work Phone: Comment on above: PATIENT WAS FASTINGP ERFORMED BY: ROSA MARIA [place] [id number] [facility] [id number] Information: 386746,C82187 GFR/1.73 sq M predicted among blacks CKD-EPI vol rate/area (S/P/Bld) 100 mL/min/1.73 Normal Comprehensiv e Internal Medicine Work Phone: Comment on above: PATIENT WAS FASTINGP ERFORMED BY: ROSA MARIA [facility]6370 [facility] [id number] Information: 594554,M50301 GFR/1.73 sq M predicted among non-blacks CKD-EPI vol rate/area (S/P/Bld) 87 mL/min/1.73 Normal [facility] Work Phone: Comment on above: PATIENT WAS FASTINGP ERFORMED BY: ROSA MARIA [facility]6370 [facility] [id number] Information: 403122,N89147 Globulin mass conc (S) 2.3 g/dL Normal 1.5-4.5 [facility] Work Phone: Comment on above: PATIENT WAS FASTINGP ERFORMED BY: [facility]6370 [facility] [id number] Information: 575733,G19726 Glucose mass conc 98 mg/dL Normal 65-99 Compreh ensive Internal Medicine Work Phone: Comment on above: PATIENT WAS FASTINGP ERFORMED BY: [place] 6422570 [facility] [place] [id number] Information: 155652,J31792 Potassium molar conc 4.0 mmol/L Normal 3.5-5.2 Comp rehensive Internal Medicine Work Phone: Comment on above: PATIENT WAS FASTINGP ERFORMED BY: ROSA MARIA [facility] Bwownu[address] [facility] [place] [id number] Information: 917260,I03438 Protein mass conc 6.7 g/dL Normal 6.0-8.5 Compreh ensive Internal Medicine Work Phone: Comment on above: PATIENT WAS FASTINGP ERFORMED BY: ROSA MARIA [facility] Scpdwb2508 [address] [facility]in [place] [id number] Information: 301045,Y79809 Sodium molar conc 138 mmol/L Normal 134-144 Compreh ensive Internal Medicine Work Phone: Comment on above: PATIENT WAS FASTINGP ERFORMED BY: [facility] Asknyz[address] [facility] [id number] Information: 754503,R75855 Urea nitrogen mass conc 13 mg/dL Normal 8-27 [facility] Work Phone: Comment on above: PATIENT WAS FASTINGP ERFORMED BY: ROSA MARIA [facility] Ljaxgk77[address] [facility] [place] [id number] Information: 188825,T99848 Urea nitrogen/Creatinine mass ratio 19 mg/mg Normal 11-26 [facility] Work Phone: Comment on above: PATIENT WAS FASTINGP ERFORMED BY: [facility] Wqiwly34[address] [facility]in [place] [id number] Information: 074709,R57492 VITAMIN B-12 (CYANOCOBALAMIN ) (37785)Ordered By: Bag Machine Operator on 07-03-2015 Cobalamin (Vitamin B12) mass conc 1109 pg/mL Abnormal 211-946 [facility] Work Phone: Comment on above: PATIENT WAS FASTINGP ERFORMED BY: ROSA MARIA [facility] Zqumat5256 [address] [facility] [id number]; will review on 07/18 appt CALCIFEDIOL (21434)Ordered B y: Bag Machine Operator on 09-09-2013 25-Hydroxyvitamin D2+25-Hydroxyvitamin D3 mass conc 39.9 ng/mL Normal 30.0-100.0 [facility] Work Phone: Comment on above: Vitamin D deficiency has been defined by the [place] of[facility] and an Endocrine Society practice guideline as alevel of serum 25-OH vitamin D less than 20 ng/mL (1,2).The Endocrine Society went on to further define vitamin Dinsufficiency as a level between 21 and 29 ng/mL (2).1. IOM ([place] of Medicine). 2010. Dietary reference intakes for calcium and D. [place]: The National Academies Press.2. Quentin MF, Thania CUENCA, Raciel BUCHANAN, et al. Evaluation, treatment, and prevention of vitamin D deficiency: an Endocrine Society clinical practice guideline. JCEM. 2010; 96(7):1911-30. PATIENT NOT FASTINGP ERFORMED BY: CB [facility] Gkfaua0390 Farmer RoadDublin [place] [id number] Metabolic Panel, Comprehensi ve (57613)Ordered By: Bag Machine Operator on 09-09-2013 Albumin mass conc 4.5 g/dL Normal 3.5-4.8 Compreh ensive Internal Medicine Work Phone: Comment on above: PATIENT NOT FASTINGP ERFORMED BY: CB [facility] Xfpwcl4094 Farmer RoadDublin [place] [id number] Information: K46814,2ND ORDER Albumin/Globulin mass ratio 1.9 {ratio} Normal 1.1-2.5 [facility] Work Phone: Comment on above: PATIENT NOT FASTINGP ERFORMED BY: CB [facility] Zwnbgc4251 Farmer RoadDublin [place] [id number] Information: G30899,2ND ORDER ALP [Catalytic activity/Vol] 80 U/L Normal 39-117 [facility]; [facility] Work Phone: Comment on above: PATIENT NOT FASTINGP ERFORMED BY: CB [facility] Xhscay8948 Farmer RoadDublin [place] [id number] Information: H19004,2ND ORDER ALP enzyme act/vol 80 [iU]/L Normal 39-117 [facility] Internal Medicine Work Phone: Comment on above: PATIENT NOT FASTINGP ERFORMED BY: ROSA MARIA [facility] Thulkb2527 Farmer RoadDublin [place] [id number] Information: Z73697,2ND ORDER ALT [Catalytic activity/Vol] 28 U/L Normal 0-32 [facility] Internal Medicine; [facility] Internal Medicine Work Phone: Comment on above: PATIENT NOT FASTINGP ERFORMED BY: CB [facility] Cvcpar7441 Farmer RoadDublin [place] [id number] Information: U44253,2ND ORDER ALT enzyme act/vol 28 [iU]/L Normal 0-32 [facility] Internal Medicine Work Phone: Comment on above: PATIENT NOT FASTINGP ERFORMED BY: CB [facility] Yfucxt6309 [address] RoadDublin [place] [id number] Information: G65573,2ND ORDER AST [Catalytic activity/Vol] 36 U/L Normal 0-40 [facility] Internal Medicine; [facility] Internal Medicine Work Phone: Comment on above: PATIENT NOT FASTINGP ERFORMED BY: ROSA MARIA [facility] Qawjke1809 [address] RoadDublin [place] [id number] Information: Q42153,2ND ORDER AST enzyme act/vol 36 [iU]/L Normal 0-40 [facility] Internal Medicine Work Phone: Comment on above: PATIENT NOT FASTINGP ERFORMED BY: CB [facility] Dufhkn8088 Farmer RoadDublin [place] [id number] Information: H70174,2ND ORDER Bilirubin mass conc 0.5 mg/dL Normal 0.0-1.2 [facility] Internal Medicine Work Phone: Comment on above: PATIENT NOT FASTINGP ERFORMED BY: CB [facility] Rbuqzs8966 [address] RoadDublin [place] [id number] Information: O04680,2ND ORDER Calcium mass conc 9.4 mg/dL Normal 8.6-10.2 Compreh ensive Internal Medicine Work Phone: Comment on above: PATIENT NOT FASTINGP ERFORMED BY: ROSA MARIA LabConettie MontgomeryYccibr4[address] [facility] [id number] Information: J48687,2ND ORDER Chloride molar conc 100 mmol/L Normal 97-108 Compr ehensive Internal Medicine Work Phone: Comment on above: PATIENT NOT FASTINGP ERFORMED BY: CB [facility] Mqzekd[address] [facility] [id number] Information: M32465,2ND ORDER CO2 molar conc 27 mmol/L Normal 18-29 Comprehens brianne Internal Medicine Work Phone: Comment on above: PATIENT NOT FASTINGP ERFORMED BY: ROSA MARIA LabConettie MontgomeryMxdvqm9987 [facility] [id number] Information: O35496,2ND ORDER Creatinine mass conc 0.78 mg/dL Normal 0.57-1.00 Comp rehensive Internal Medicine Work Phone: Comment on above: PATIENT NOT FASTINGP ERFORMED BY: ROSA MARIA [facility] Ksfndi3676 [facility] [id number] Information: B13508,2ND ORDER GFR/1.73 sq M predicted among blacks CKD-EPI vol rate/area (S/P/Bld) 88 mL/min/1.73 Normal Comprehensiv e Internal Medicine Work Phone: Comment on above: PATIENT NOT FASTINGP ERFORMED BY: CB [facility] Xcitqy5803 [facility] [id number] Information: K97514,2ND ORDER GFR/1.73 sq M predicted among non-blacks CKD-EPI vol rate/area (S/P/Bld) 76 mL/min/1.73 Normal [facility] Work Phone: Comment on above: PATIENT NOT FASTINGP ERFORMED BY: CB [facility] Sljzge5939 [facility] [id number] Information: S32739,2ND ORDER Globulin mass conc (S) 2.4 g/dL Normal 1.5-4.5 [facility] Work Phone: Comment on above: PATIENT NOT FASTINGP ERFORMED BY: ROSA MARIA LabConettie BellJzrdux89[address] [facility]in [place] [id number] Information: D68042,2ND ORDER Glucose mass conc 100 mg/dL Abnormal 65-99 Compreh ensive Internal Medicine Work Phone: Comment on above: PATIENT NOT FASTINGP ERFORMED BY: ROSA MARIA [facility] Rgwtwp[address] [facility] [place] [id number] Information: W80636,2ND ORDER Potassium molar conc 4.6 mmol/L Normal 3.5-5.2 Comp rehensive Internal Medicine Work Phone: Comment on above: PATIENT NOT FASTINGP ERFORMED BY: ROSA MARIA FriedmanConettie MontgomeryEbemoe[address] [facility] [place] [id number] Information: K37939,2ND ORDER Protein mass conc 6.9 g/dL Normal 6.0-8.5 Compreh ensive Internal Medicine Work Phone: Comment on above: PATIENT NOT FASTINGP ERFORMED BY: ROSA MARIA [facility] Ignhhl49[address] [facility] [place] [id number] Information: W01627,2ND ORDER Sodium molar conc 141 mmol/L Normal 134-144 Compreh ensive Internal Medicine Work Phone: Comment on above: PATIENT NOT FASTINGP ERFORMED BY: ROSA MARIA [facility] Uayevi[address] [facility] [id number] Information: M97204,2ND ORDER Urea nitrogen mass conc 18 mg/dL Normal 8-27 [facility] Work Phone: Comment on above: PATIENT NOT FASTINGP ERFORMED BY: ROSA MARIA [facility] Kxvblw60[address] [facility]in [place] [id number] Information: P09548,2ND ORDER Urea nitrogen/Creatinine mass ratio 23 mg/mg Normal 11-26 [facility] Work Phone: Comment on above: PATIENT NOT FASTINGP ERFORMED BY: ROSA MARIA [facility] Mdvuhn[address] [facility] [id number] Information: N48569,2ND ORDER PT (Prothrobim Time) (92669) Ordered By: Bag Machine Operator on 09-09-2013 INR Coag RelTime (PPP) 1.0 {INR} Normal 0.8-1.2 [facility] Work Phone: Comment on above: Reference interval i s for non-anticoagulated patients. . Suggested INR therapeutic range for Vitamin K antagonist therapy: Standard Dose (moderate intensity therapeutic range): 2.0 - 3.0 Higher intensity therapeutic range 2.5 - 3.5 PATIENT NOT FASTINGP ERFORMED BY: [place] 6422570 [facility] [id number] Information: 469009,B13540 Prothrombin time (PT) Coag time (PPP) 10.2 {sec} Normal 9.1-12.0 [facility] Work Phone: Comment on above: PATIENT NOT FASTINGP ERFORMED BY: [place] 6422570 [facility] [id number] Information: 384644,Z93856 PT Coag (PPP) [Time] 10.2 s Normal 9.1-12.0 [facility] Internal Medicine; [facility] Medicine Work Phone: Comment on above: PATIENT NOT FASTINGP ERFORMED BY: [facility]6370 [facility] [id number] Information: 146014,A37664 PTT (Activated Partial Throm boplastin Time) (67009)Ordered By: Bag Machine Operator on 09-09-2013 aPTT Coag (PPP) [Time] 27 s Normal 24-33 [facility]; [facility] Work Phone: Comment on above: This test has not be en validated for monitoring unfractionated heparintherapy. aPTT-based therapeutic ranges for unfractionated heparintherapy have not been established. For general guidelines onHeparin monitoring, refer to the [facility] Directory of Services. PATIENT NOT FASTINGP ERFORMED BY: [facility]6370 [facility] [id number] aPTT Coag time (PPP) 27 {sec} Normal 24-33 Comp rehensive Internal Medicine Work Phone: Comment on above: This test has not be en validated for monitoring unfractionated heparintherapy. aPTT-based therapeutic ranges for unfractionated heparintherapy have not been established. For general guidelines onHeparin monitoring, refer to the [facility] Directory of Services. PATIENT NOT FASTINGP ERFORMED BY: [facility]6370 [facility] [id number] URINALYSIS (02849)Ordered By : Bag Machine Operator on 09-09-2013 Appearance Nom (U) Clear Normal Compre hensive Internal Medicine Work Phone: Comment on above: PATIENT NOT FASTINGP ERFORMED BY: [place] 6422570 [facility] [id number] Information: J48878,2ND ORDER Bilirubin Ql (U) Negative Normal Comprehe nsive Internal Medicine Work Phone: Comment on above: PATIENT NOT FASTINGP ERFORMED BY: [facility]6370 [facility] [id number] Information: Y69638,2ND ORDER Bilirubin Ql (U) Negative Normal Comprehe nsive Internal Medicine; [facility] Work Phone: Comment on above: PATIENT NOT FASTINGP ERFORMED BY: [facility]6370 [facility] [id number] Information: E84223,2ND ORDER Color Nom (U) Yellow Normal Comprehensi ve Internal Medicine Work Phone: Comment on above: PATIENT NOT FASTINGP ERFORMED BY: [facility]6370 [facility] [id number] Information: E25132,2ND ORDER Glucose Ql (U) Negative Normal Comprehens brianne Internal Medicine Work Phone: Comment on above: PATIENT NOT FASTINGP ERFORMED BY: [facility]6370 [facility] [id number] Information: Z01302,2ND ORDER Glucose Ql (U) Negative Normal Comprehens brianne Internal Medicine; [facility] Work Phone: Comment on above: PATIENT NOT FASTINGP ERFORMED BY: ROSA MARIA [facility] Zhsrvg0550 [address] RoadDublin [place] [id number] Information: C54489,2ND ORDER Hemoglobin Ql (U) Negative Normal Compreh ensive Internal Medicine Work Phone: Comment on above: PATIENT NOT FASTINGP ERFORMED BY: CB [facility] Nvbadv5949 [address] RoadDublin [place] [id number] Information: L14246,2ND ORDER Hemoglobin Ql (U) Negative Normal Compreh ensive Internal Medicine; [facility] Work Phone: Comment on above: PATIENT NOT FASTINGP ERFORMED BY: CB [facility] Hlanwz6517 Farmer RoadDuin [place] [id number] Information: N29087,2ND ORDER Ketones Ql (U) Negative Normal Comprehens brianne Internal Medicine Work Phone: Comment on above: PATIENT NOT FASTINGP ERFORMED BY: CB [facility] Usrlpa0806 Framer RoadFrye Regional Medical Centerin [place] [id number] Information: G92431,2ND ORDER Ketones Ql (U) Negative Normal Comprehens brianne Internal Medicine; [facility] Work Phone: Comment on above: PATIENT NOT FASTINGP ERFORMED BY: ROSA MARIA [facility] Rkscjw2026 Farmer RoadFrye Regional Medical Centerin [place] [id number] Information: I84779,2ND ORDER Leukocyte esterase Test strip Ql (U) Negative Normal [facility] Work Phone: Comment on above: PATIENT NOT FASTINGP ERFORMED BY: CB [facility] Twzxbz7281 [address] RoadDuin [place] [id number] Information: O61501,2ND ORDER Leukocyte esterase Test strip Ql (U) Negative Normal [facility]; [facility] Work Phone: Comment on above: PATIENT NOT FASTINGP ERFORMED BY: CB [facility] Bqqwsr9729 [address] RoadDublin [place] [id number] Information: K83144,2ND ORDER Microscopic observation LM Nom (Urine sed) MICNIP Normal [facility] Work Phone: Comment on above: Microscopic not ajay cated and not performed. PATIENT NOT FASTINGP ERFORMED BY: ROSA MARIA Bell6[address] RoadDublin [place] [id number] Information: Q72460,2ND ORDER Nitrite Ql (U) Negative Normal Comprehens brianne Internal Medicine Work Phone: Comment on above: PATIENT NOT FASTINGP ERFORMED BY: ROSA MARIA [facility] Iqvsxc0241 [address] RoadDublin [place] [id number] Information: F75133,2ND ORDER Nitrite Ql (U) Negative Normal Comprehens brianne Internal Medicine; [facility] Work Phone: Comment on above: PATIENT NOT FASTINGP ERFORMED BY: ROSA MARIA Montgomerylin6370 [address] RoadDuin [place] [id number] Information: P41026,2ND ORDER pH (U) 6.0 [pH] Normal 5.0-7.5 [facility] Work Phone: Comment on above: PATIENT NOT FASTINGP ERFORMED BY: ROSA MARIA Gonzales Tauuxy2532 Farmer RoadDuin [place] [id number] Information: V91125,2ND ORDER Protein Ql (U) Negative Normal Comprehens brianne Internal Medicine Work Phone: Comment on above: PATIENT NOT FASTINGP ERFORMED BY: ROSA MARIA Gonzales Dbrutr9294 Farmer RoadDuin [place] [id number] Information: E33270,2ND ORDER Protein Ql (U) Negative Normal Comprehens brianne Internal Medicine; [facility] Work Phone: Comment on above: PATIENT NOT FASTINGP ERFORMED BY: ROSA MARIA [facility] Qzbklh9423 [address] RoadDublin [place] [id number] Information: Q73202,2ND ORDER Specific gravity Relative Density (U) 1.012 1 Normal 1.005-1.03 0 [facility] Work Phone: Comment on above: PATIENT NOT FASTINGP ERFORMED BY: ROSA MARIA [facility] Vnuknl5041 [address] RoadDublin [place] [id number] Information: W56066,2ND ORDER Urobilinogen (U) [Mass/Vol] 0.2 mg/dL Normal 0.0-1.9 [facility]; [facility] Work Phone: Comment on above: PATIENT NOT FASTINGP ERFORMED BY: ROSA MARIA [facility] Eunoat0328 Farmer RoadDublin [place] [id number] Information: F50195,2ND ORDER Urobilinogen Test strip mass conc (U) 0.2 mg/dL Normal 0.0-1.9 Comprehens e Internal Medicine Work Phone: Comment on above: PATIENT NOT FASTINGP ERFORMED BY: CB [facility] Ljhnbs4233 [address] RoadDublin [place] [id number] Information: G62138,2ND ORDER Vitamin B-12 (cyanocobalamin ) (38272)Ordered By: Bag Machine Operator on 09-09-2013 Cobalamin (Vitamin B12) mass conc 603 pg/mL Normal 211-946 [facility] Work Phone: Comment on above: PATIENT NOT FASTINGP ERFORMED BY: CB [facility] Xdmjfj3035 Farmer RoadDublin [place] [id number] CALCIFIDIOL (10693) VIT D 25 Ordered By: Bag Machine Operator on 10-14-2012 25-Hydroxyvitamin D2+25-Hydroxyvitamin D3 mass conc 35.0 ng/mL Normal 30.0-100.0 [facility] Work Phone: Comment on above: Vitamin D deficiency has been defined by the [place] ofMedicine and an Endocrine Society practice guideline as alevel of serum 25-OH vitamin D less than 20 ng/mL (1,2).The Endocrine Society went on to further define vitamin Dinsufficiency as a level between 21 and 29 ng/mL (2).1. IOM ([place] of Medicine). 2010. Dietary reference intakes for calcium and D. [place]: The National Academies Press.2. Quentin MF, Thania NC, Raciel BUCHANAN, et al. Evaluation, treatment, and prevention of vitamin D deficiency: an Endocrine Society clinical practice guideline. JCEM. 2010; 96(7):1911-30. PATIENT WAS FASTINGP ERFORMED BY: [facility] Yuxved8106 [facility] [id number] BY: [address] [id number] CBC with manual diff (07915) Ordered By: Bag Machine Operator on 10-14-2012 Basophils #/vol (Bld) 0.0 {x10E3/uL} Normal 0.0-0.2 [facility] Work Phone: Comment on above: PATIENT WAS FASTINGP ERFORMED BY: [facility] Jtuoyu8657 [facility] [id number] BY: [address] [id number] Information: 025210,O80992 Basophils (Bld) [#/Vol] 0.0 10*3/uL Normal 0.0-0.2 [facility]; [facility] Work Phone: Comment on above: PATIENT WAS FASTINGP ERFORMED BY: [facility] Pibgvq5212 [facility] [id number] BY: [address] [id number] Information: 054126,X79595 Basophils/100 WBC (Bld) 1 % Normal 0-3 [facility] Work Phone: Comment on above: PATIENT WAS FASTINGP ERFORMED BY: [facility] Wbiade7014 [facility] [id number] BY: [address] [id number] Information: 550503,H92753 Eosinophils #/vol (Bld) 0.1 {x10E3/uL} Normal 0.0-0.4 [facility] Work Phone: Comment on above: PATIENT WAS FASTINGP ERFORMED BY: [facility] Nhwiom8936 [facility] [id number] BY: BN Lab[address] [id number] Information: 172141,L31604 Eosinophils (Bld) [#/Vol] 0.1 10*3/uL Normal 0.0-0.4 [facility]; [facility] Work Phone: Comment on above: PATIENT WAS FASTINGP ERFORMED BY: [facility] Sfqkvo4567 [facility] [id number] BY: Lab[address] [id number] Information: 603925,J61349 Eosinophils/100 WBC (Bld) 2 % Normal 0-7 [facility] Work Phone: Comment on above: PATIENT WAS FASTINGP ERFORMED BY: [facility] Vinwsg7455 [facility] [id number] BY: [address] [id number] Information: 921561,U99257 Erythrocyte distribution width Ratio (RBC) 13.3 % Normal 12.3-15.4 [facility] Work Phone: Comment on above: PATIENT WAS FASTINGP ERFORMED BY: [facility] Fydkyj7183 [facility] [id number] BY: [address] [id number] Information: 644882,D74835 Hematocrit Volume Fraction (Bld) 41.1 % Normal 34.0-46.6 [facility] Work Phone: Comment on above: PATIENT WAS FASTINGP ERFORMED BY: [facility] Ixiqng5532 [facility] [id number] BY: [address] [id number] Information: 968489,F79937 Hemoglobin mass conc (Bld) 13.5 g/dL Normal 11.1-15.9 [facility] Work Phone: Comment on above: PATIENT WAS FASTINGP ERFORMED BY: CB LabCoVirtua VoorheesChsysk2498 [facility] [id number] BY: [address] [id number] Information: 523540,W77098 Immature granulocytes #/vol (Bld) 0.0 {x10E3/uL} Normal 0.0-0.1 [facility] Work Phone: Comment on above: PATIENT WAS FASTINGP ERFORMED BY: LabCoDawn Ville 4503370 [facility] [id number] BY: [address] [id number] Information: 120625,Q81508 Immature granulocytes (Bld) [#/Vol] 0.0 10*3/uL Normal 0.0-0.1 [facility]; [facility] Work Phone: Comment on above: PATIENT WAS FASTINGP ERFORMED BY: LabCoDawn Ville 4503370 [facility] [id number] BY: [address] [id number] Information: 374161,J32802 Immature granulocytes/100 WBC (Bld) 0 % Normal 0-2 [facility] Work Phone: Comment on above: PATIENT WAS FASTINGP ERFORMED BY: LabAlejandro Ville 3224470 [facility] [id number] BY: [address] [id number] Information: 078781,A21762 Lymphocytes #/vol (Bld) 2.6 {x10E3/uL} Normal 0.7-4.5 [facility] Work Phone: Comment on above: PATIENT WAS FASTINGP ERFORMED BY: [place] 6422570 [facility] [id number] BY: [address] [id number] Information: 575600,C48525 Lymphocytes (Bld) [#/Vol] 2.6 10*3/uL Normal 0.7-4.5 [facility]; [facility] Work Phone: Comment on above: PATIENT WAS FASTINGP ERFORMED BY: ROSA MARIA [facility] Sebhmw3874 [address] [facility] [place] [id number] BY: Lab[address] [id number] Information: [id number] Lymphocytes/100 WBC (Bld) 43 % Normal 14-46 [facility] Work Phone: Comment on above: PATIENT WAS FASTINGP ERFORMED BY: CB [facility] Ikcynb9875 [address] [facility] [id number] BY: [address] [id number] Information: 205291,[id number] MCH Entitic mass (RBC) 29.2 pg Normal 26.6-33.0 [facility] Work Phone: Comment on above: PATIENT WAS FASTINGP ERFORMED BY: CB [facility] Czpnsp8109 [facility] [id number] BY: [address] [id number] Information: 499122,[id number] MCHC mass conc (RBC) 32.8 g/dL Normal 31.5-35.7 [facility] Internal Medicine Work Phone: Comment on above: PATIENT WAS FASTINGP ERFORMED BY: CB [facility] Ycftad1965 [address] [facility] [id number] BY: [address] [id number] Information: 264000,[id number] MCV Entitic volume (RBC) 89 fL Normal 79-97 [facility] Work Phone: Comment on above: PATIENT WAS FASTINGP ERFORMED BY: CB [facility] Qvhhhy9461 [address] [facility] [id number] BY: [address] [id number] Information: [id number] Monocytes #/vol (Bld) 0.6 {x10E3/uL} Normal 0.1-1.0 [facility] Work Phone: Comment on above: PATIENT WAS FASTINGP ERFORMED BY: ROSA MARIA [facility] Pqsplj7524 [facility] [id number] BY: [address] [id number] Information: 500391,V10514 Monocytes (Bld) [#/Vol] 0.6 10*3/uL Normal 0.1-1.0 [facility]; [facility] Work Phone: Comment on above: PATIENT WAS FASTINGP ERFORMED BY: [facility] Gxjryj3799 [facility] [id number] BY: [address] [id number] Information: 213525,H94671 Monocytes/100 WBC (Bld) 9 % Normal 4-13 [facility] Work Phone: Comment on above: PATIENT WAS FASTINGP ERFORMED BY: [facility]6370 [facility] [id number] BY: [address] [id number] Information: 446629,W85365 Neutrophils #/vol (Bld) 2.9 {x10E3/uL} Normal 1.8-7.8 [facility] Work Phone: Comment on above: PATIENT WAS FASTINGP ERFORMED BY: [facility]6370 [facility] [id number] BY: [address] [id number] Information: 678264,E76764 Neutrophils (Bld) [#/Vol] 2.9 10*3/uL Normal 1.8-7.8 [facility]; [facility] Work Phone: Comment on above: PATIENT WAS FASTINGP ERFORMED BY: ROSA MARIA [facility] Pipeos8518 Farmer RoadDublin [place] [id number] BY: LabCo[address] [id number] Information: 886642,N62314 Neutrophils/100 WBC (Bld) 45 % Normal 40-74 [facility] Work Phone: Comment on above: PATIENT WAS FASTINGP ERFORMED BY: CB [facility] Jahqhr1189 Farmer RoadDublin [place] [id number] BY: [facility] [address] [id number] Information: [id number] Platelets #/vol (Bld) 225 {x10E3/uL} Normal 140-415 [facility] Work Phone: Comment on above: PATIENT WAS FASTINGP ERFORMED BY: ROSA MARIA [facility] Bjagsj4979 Farmer RoadDuin [place] [id number] BY: LabCo[address] [id number] Information: 317478,P99261 Platelets (Bld) [#/Vol] 225 10*3/uL Normal 140-415 [facility]; [facility] Work Phone: Comment on above: PATIENT WAS FASTINGP ERFORMED BY: CB [facility] Eirheo7173 Farmer RoadDublin [place] [id number] BY: [address] [id number] Information: 265346,C14765 RBC #/vol (Bld) 4.62 {x10E6/uL} Normal 3.77-5.28 [facility] Internal Medicine Work Phone: Comment on above: PATIENT WAS FASTINGP ERFORMED BY: CB [facility] Wwwaua3312 Farmer RoadDublin [place] [id number] BY: [employer] [id number] Information: 481692,[id number] RBC (Bld) [#/Vol] 4.62 10*6/uL Normal 3.77-5.28 [facility]; [facility] Work Phone: Comment on above: PATIENT WAS FASTINGP ERFORMED BY: [employer] Tczlzq8477 [facility] [id number] BY: Mingly[address] [id number] Information: 794276,[id number] WBC #/vol (Bld) 6.2 {x10E3/uL} Normal 4.0-10.5 [facility] Internal Medicine Work Phone: Comment on above: PATIENT WAS FASTINGP ERFORMED BY: [employer] Zpmxgg0837 [facility] [id number] BY: Mingly[address] [id number] Information: 019068,Z22474 WBC (Bld) [#/Vol] 6.2 10*3/uL Normal 4.0-10.5 [facility]; [facility] Work Phone: Comment on above: PATIENT WAS FASTINGP ERFORMED BY: [employer] Wtsnwm5844 [facility] [id number] BY: [employer] [id number] Information: 253181,[id number] Lipid Panel (55918)Ordered B y: Bag Machine Operator on 10-14-2012 Cholesterol in HDL mass conc 75 mg/dL Normal [facility] Work Phone: Comment on above: According to ATP-III Guidelines, HDL-C >59 mg/dL is considered anegative risk factor for CHD. PATIENT WAS FASTINGP ERFORMED BY: [employer] Nyhlhf0015 [facility] [id number] BY: BN [facility] [address] [id number] Cholesterol in LDL mass conc 101 mg/dL Abnormal 0-99 [facility] Work Phone: Comment on above: PATIENT WAS FASTINGP ERFORMED BY: CB [facility] Huqbso0043 Farmer RoadDublin [place] [id number] BY: BN [facility] [address] [id number] Cholesterol in LDL/Cholesterol in HDL mass ratio 1.3 {ratio_units} Normal 0.0-3.2 [facility] Work Phone: Comment on above: PATIENT WAS FASTINGP ERFORMED BY: CB [facility] Qjsdiv7266 Farmer RoadDublin [place] [id number] BY: BN [facility] [address] [id number] Cholesterol in VLDL mass conc 22 mg/dL Normal 5-40 [facility] Work Phone: Comment on above: PATIENT WAS FASTINGP ERFORMED BY: CB [facility] Wztzmx8348 Farmer RoadDublin [place] [id number] BY: [facility] [address] [id number] Cholesterol mass conc 198 mg/dL Normal 100-199 [facility] Work Phone: Comment on above: PATIENT WAS FASTINGP ERFORMED BY: CB [facility] Aepevw1156 Farmer RoadDublin [place] [id number] BY: BN [facility] [address] [id number] Triglyceride mass conc 112 mg/dL Normal 0-149 [facility] Work Phone: Comment on above: PATIENT WAS FASTINGP ERFORMED BY: CB [facility] Fqtjso1767 Farmer RoadDublin [place] [id number] BY: BN [facility] [address] [id number] Metabolic Panel, Comprehensi ve (16672)Ordered By: Bag Machine Operator on 10-14-2012 Albumin mass conc 4.3 g/dL Normal 3.5-4.8 [facility] Internal Medicine Work Phone: Comment on above: PATIENT WAS FASTINGP ERFORMED BY: CB [facility] Ugqowm7286 [facility] [id number] BY: [address] [id number] Albumin/Globulin mass ratio 1.7 {ratio} Normal 1.1-2.5 [facility] Work Phone: Comment on above: PATIENT WAS FASTINGP ERFORMED BY: CB [facility] Kykqta2662 [facility] [id number] BY: LabCo[address] [id number] ALP [Catalytic activity/Vol] 84 U/L Normal 45-108 [facility]; [facility] Internal Medicine Work Phone: Comment on above: PATIENT WAS FASTINGP ERFORMED BY: [facility] Dvfgnn0263 [facility] [id number] BY: LabCo[address] [id number] ALP enzyme act/vol 84 [iU]/L Normal 45-108 [facility] Internal Medicine Work Phone: Comment on above: PATIENT WAS FASTINGP ERFORMED BY: CB [facility] Icnqhy6653 [facility] [id number] BY: Lab[address] [id number] ALT [Catalytic activity/Vol] 28 U/L Normal 0-32 [facility]; [facility] Work Phone: Comment on above: PATIENT WAS FASTINGP ERFORMED BY: CB [facility] Tcuwer2356 [address] [facility] [id number] BY: [address] [id number] ALT enzyme act/vol 28 [iU]/L Normal 0-32 [facility] Internal Medicine Work Phone: Comment on above: PATIENT WAS FASTINGP ERFORMED BY: ROSA MARIA [facility] Unogmu8047 Farmer RoadDublin [place] [id number] BY: [address] [id number] AST [Catalytic activity/Vol] 34 U/L Normal 0-40 [facility]; [facility] Work Phone: Comment on above: PATIENT WAS FASTINGP ERFORMED BY: ROSA MARIA [facility] Nzicel8193 [address] RoadDublin [place] [id number] BY: [address] [id number] AST enzyme act/vol 34 [iU]/L Normal 0-40 [facility] Internal Medicine Work Phone: Comment on above: PATIENT WAS FASTINGP ERFORMED BY: ROSA MARIA [facility] Rrwxpk8532 Farmer RoadDublin [place] [id number] BY: [address] [id number] Bilirubin mass conc 0.5 mg/dL Normal 0.0-1.2 Compr ensive Internal Medicine Work Phone: Comment on above: PATIENT WAS FASTINGP ERFORMED BY: ROSA MARIA [facility] Dklwgm3115 Farmer RoadDublin [place] [id number] BY: [address] [id number] Calcium mass conc 9.5 mg/dL Normal 8.6-10.2 Compreh ensive Internal Medicine Work Phone: Comment on above: PATIENT WAS FASTINGP ERFORMED BY: ROSA MARIA [facility] Megbzk4354 Farmer RoadDublin [place] [id number] BY: [address] [id number] Chloride molar conc 99 mmol/L Normal 97-108 Compr ehensive Internal Medicine Work Phone: Comment on above: PATIENT WAS FASTINGP ERFORMED BY: ROSA MARIA [facility] Dpujts8589 [address] RoadDublin [place] [id number] BY: BN [facility] [id number] CO2 molar conc 25 mmol/L Normal 19-28 Comprehens brianne Internal Medicine Work Phone: Comment on above: PATIENT WAS FASTINGP ERFORMED BY: ROSA MARIA [facility] Whnwen6503 Farmer RoadDublin [place] [id number] BY: LabCo[address] [id number] Creatinine mass conc 0.77 mg/dL Normal 0.57-1.00 Comp rehensive Internal Medicine Work Phone: Comment on above: PATIENT WAS FASTINGP ERFORMED BY: ROSA MARIA [facility] Agsedv5033 [address] [facility] [id number] BY: LabCo[address] [id number] GFR/1.73 sq M predicted among blacks CKD-EPI vol rate/area (S/P/Bld) 90 mL/min/1.73 Normal Comprehensiv e Internal Medicine Work Phone: Comment on above: PATIENT WAS FASTINGP ERFORMED BY: ROSA MARIA [facility] Vantjw3026 [address] [facility] [id number] BY: [facility]Co[address] [id number] GFR/1.73 sq M predicted among non-blacks CKD-EPI vol rate/area (S/P/Bld) 78 mL/min/1.73 Normal [facility] Work Phone: Comment on above: PATIENT WAS FASTINGP ERFORMED BY: CB [facility] Cdetcd0166 [address] [facility] [id number] BY: LabCo[address] [id number] Globulin mass conc (S) 2.5 g/dL Normal 1.5-4.5 [facility] Work Phone: Comment on above: PATIENT WAS FASTINGP ERFORMED BY: CB [facility] Vtzhnz3612 [address] [facility] [id number] BY: [facility]Co[address] [id number] Glucose mass conc 100 mg/dL Abnormal 65-99 Compreh ensive Internal Medicine Work Phone: Comment on above: PATIENT WAS FASTINGP ERFORMED BY: ROSA MARIA [facility] Xqqvuv4312 [address] [facility] [id number] BY: LabCo[address] [id number] Potassium molar conc 5.1 mmol/L Normal 3.5-5.2 Comp rehensive Internal Medicine Work Phone: Comment on above: PATIENT WAS FASTINGP ERFORMED BY: ROSA MARIA [facility] Uyfeuj9704 [facility] [id number] BY: LabCo[address] [id number] Protein mass conc 6.8 g/dL Normal 6.0-8.5 Compreh ensive Internal Medicine Work Phone: Comment on above: PATIENT WAS FASTINGP ERFORMED BY: ROSA MARIA [facility] Hmvect6885 [address] [facility] [id number] BY: [address] [id number] Sodium molar conc 138 mmol/L Normal 134-144 Compreh ensive Internal Medicine Work Phone: Comment on above: PATIENT WAS FASTINGP ERFORMED BY: [facility] Xxyljx1621 [address] [facility] [id number] BY: [facility]Co[address] [id number] Urea nitrogen mass conc 19 mg/dL Normal 8-27 [facility] Work Phone: Comment on above: PATIENT WAS FASTINGP ERFORMED BY: CB [facility] Ssiqos3125 [address] [facility] [id number] BY: [address] [id number] Urea nitrogen/Creatinine mass ratio 25 mg/mg Normal 11-26 [facility] Work Phone: Comment on above: PATIENT WAS FASTINGP ERFORMED BY: [employer]6[address] vendome 16[address] [id number] BY: [employer] [id number] Methymalonic Acid, Serum (83 921)Ordered By: Bag Machine Operator on 10-14-2012 Methylmalonate Ql (U) 139 nmol/L Normal 73-376 [facility] prehensive Internal Medicine Work Phone: Comment on above: The reference range for methylmalonic acid has been set at +3sd abovethe mean for healthy blood bank donors. In the clinical assessment ofpatients with megaloblastic anemias a cutoff of +3sd provides greaterspecificity in the diagnosis of the vitamin deficiency states,despite the sacrifice of some sensitivity. PATIENT WAS FASTINGP ERFORMED BY: [employer]6370 [address] [id number] BY: Mingly[address] [id number] Vitamin B-12 (cyanocobalamin ) (69349)Ordered By: Bag Machine Operator on 10-14-2012 Cobalamin (Vitamin B12) mass conc 572 pg/mL Normal 211-946 [facility] Work Phone: Comment on above: PATIENT WAS FASTINGP ERFORMED BY: [employer]6370 [address] RoadDublin [place] [id number] BY: [employer] [id number] Basic Metabolic Panel (8)Ord ered By: Bag Machine Operator on 08-17-2012 Calcium mass conc 9.0 mg/dL Normal 8.6-10.2 Compreh ensive Internal Medicine Work Phone: Comment on above: PERFORMED BY: JAYS70 Vertical KnowledgeSentara Albem[facility] [id number] BY: [employer] [id number] Information: 08/16@645AM 08/17@7AM Chloride molar conc 98 mmol/L Normal 97-108 Compr ehensive Internal Medicine Work Phone: Comment on above: PERFORMED BY: ENEFpro6370 Farmer RoadVasylblin [place] [id number] BY: [employer] [id number] Information: 08/16@645AM 08/17@7AM CO2 molar conc 22 mmol/L Normal 19-28 Comprehens brianne Internal Medicine Work Phone: Comment on above: PERFORMED BY: ENEFpro6370 [address] [facility] [id number] BY: [employer] [id number] Information: 08/16@645AM 08/17@7AM Creatinine mass conc 0.70 mg/dL Normal 0.57-1.00 Comp rehensive Internal Medicine Work Phone: Comment on above: PERFORMED BY: JAYS70 [address] [facility] [id number] BY: [employer] [id number] Information: 08/16@645AM 08/17@7AM GFR/1.73 sq M predicted among blacks CKD-EPI vol rate/area (S/P/Bld) 101 mL/min/1.73 Normal Comprehensiv e Internal Medicine Work Phone: Comment on above: PERFORMED BY: ENEFpro6370 [facility] [id number] BY: [employer] [id number] Information: 08/16@645AM 08/17@7AM GFR/1.73 sq M predicted among non-blacks CKD-EPI vol rate/area (S/P/Bld) 87 mL/min/1.73 Normal [facility] Work Phone: Comment on above: PERFORMED BY: ENEFpro6370 [address] [facility] [id number] BY: Lab[address] [id number] Information: 08/16@645AM 6/25@7AM Glucose mass conc 152 mg/dL Abnormal 65-99 Compreh ensive Internal Medicine Work Phone: Comment on above: PERFORMED BY: ENEFpro6370 [address] [facility] [id number] BY: [employer] BlazeCo[address] [id number] Information: 08/16@645AM 6/25@7AM Potassium molar conc 4.3 mmol/L Normal 3.5-5.2 Comp rehensive Internal Medicine Work Phone: Comment on above: PERFORMED BY: JAYS70 [address] [facility] [id number] BY: [employer] [id number] Information: 08/16@645AM 08/17@7AM Sodium molar conc 136 mmol/L Normal 134-144 Compreh ensive Internal Medicine Work Phone: Comment on above: PERFORMED BY: ENEFpro6370 [address] [facility] [id number] BY: [employer] [id number] Information: 08/16@645AM 6@7AM Urea nitrogen mass conc 12 mg/dL Normal 8-27 [facility] Work Phone: Comment on above: PERFORMED BY: SayNowlin6370 [facility] [id number] BY: [employer] [id number] Information: 08/16@645AM 6/25@7AM Urea nitrogen/Creatinine mass ratio 17 mg/mg Normal 11-26 [facility] Work Phone: Comment on above: PERFORMED BY: ENEFpro6370 [address] [facility] [id number] BY: [address] [id number] Information: 08/16@645AM 08/17@7AM Catecholamines,Ur.,Free,24 H rOrdered By: Bag Machine Operator on 08-17-2012 Dopamine mass conc (U) 89 ug/L Normal [facility] Work Phone: Comment on above: PERFORMED BY: JAYS[address] [place] [address] [id number] BY: [address] [id number] Dopamine mass/time (24H U) 165 {ug/24_hr} Normal 0-510 [facility] Work Phone: Comment on above: PERFORMED BY: ENEFpro[address] [place] [address] [id number] BY: [address] [id number] Epinephrine mass conc (U) 4 ug/L Normal [facility] Work Phone: Comment on above: PERFORMED BY: ENEFpro[address] [place] [address] [id number] BY: [address] [id number] Epinephrine mass/time (24H U) 7 {ug/24_hr} Normal 0-20 [facility] Work Phone: Comment on above: PERFORMED BY: ENEFpro[address] [place] [address] [id number] BY: [address] [id number] Norepinephrine mass conc (U) 20 ug/L Normal [facility] Work Phone: Comment on above: PERFORMED BY: ENEFpro[address] [place] [address] [id number] BY: [address] [id number] Norepinephrine mass/time (24H U) 37 {ug/24_hr} Normal 0-135 [facility] Work Phone: Comment on above: PERFORMED BY: ENEFpro6370 [address] 1699[place] [id number] BY: [employer] [id number] Metanephrines, Frac, Qn, 24- HrOrdered By: Bag Machine Operator on 08-17-2012 Metanephrine mass/time (24H U) 139 {ug/24_hr} Normal 45-290 [facility] Work Phone: Comment on above: (Hypertensive) >17 y ears 11 months: 35 - 460 . Please note reference interval change PERFORMED BY: JAYS70 Synchronicity.coFormerly [facility] [id number] BY: Mingly[address] [id number] Metanephrines mass conc (24H U) 75 ug/L Normal [facility] Work Phone: Comment on above: PERFORMED BY: JAYS70 [address] 1699in [place] [id number] BY: [employer] [address] [id number] Normetanephrine mass conc (24H U) 112 ug/L Normal [facility] Work Phone: Comment on above: PERFORMED BY: ENEFpro6370 [address] TicketFireSentara Albem[facility] [id number] BY: Mingly[address] [id number] Normetanephrine mass/time (24H U) 207 {ug/24_hr} Normal 82-500 [facility] Work Phone: Comment on above: (Hypertensive) >17 y ears 11 months: 110 - 1050 PERFORMED BY: JAYS70 [address] [facility] [place] [id number] BY: [employer] [id number] TSHOrdered By: System Manage r on 08-17-2012 Thyrotropin Qn 2.120 {uIU/mL} Normal 0.450-4.50 0 [facility] Work Phone: Comment on above: PERFORMED BY: [employer] Dianne Apmmcs1621 [address].[place] [id number] BY: [employer] Eeqbtcxdyu0330 [facility] [id number] CALCIFIDIOL (87490) VIT D 25 Ordered By: Bag Machine Operator on 11-28-2011 25-Hydroxyvitamin D2+25-Hydroxyvitamin D3 mass conc 37.7 ng/mL Normal 30.0-100.0 [facility] Work Phone: Comment on above: Vitamin D deficiency has been defined by the [place] of[place]icine and an Endocrine Society practice guideline as alevel of serum 25-OH vitamin D less than 20 ng/mL (1,2).The Endocrine Society went on to further define vitamin Dinsufficiency as a level between 21 and 29 ng/mL (2).1. IOM ([place] of Medicine). 2010. Dietary reference intakes for calcium and D. [place]: The National Academies Press.2. uQentin MF, Thania CUENCA, Raciel BUCHANAN, et al. Evaluation, treatment, and prevention of vitamin D deficiency: an Endocrine Society clinical practice guideline. JCEM. 2010; 96(7):1911-30. PATIENT WAS FASTINGP ERFORMED BY: [employer]6370 [address] [id number] HEPATIC FUNCTION PANEL (8007 6)Ordered By: Bag Machine Operator on 11-28-2011 Albumin mass conc 4.4 g/dL Normal 3.5-4.8 Compreh ensive Internal Medicine Work Phone: Comment on above: PATIENT WAS FASTINGP ERFORMED BY: [employer] BlazeCoNotegraphyVutlvi9725 [address] [id number] ALP [Catalytic activity/Vol] 95 U/L Normal 25-165 [facility]; [facility] Work Phone: Comment on above: PATIENT WAS FASTINGP ERFORMED BY: [employer]6370 [address] [id number] ALP enzyme act/vol 95 [iU]/L Normal 25-165 [facility] Internal Medicine Work Phone: Comment on above: PATIENT WAS FASTINGP ERFORMED BY: ROSA MARIA [facility] Onveea3254 Farmer RoadDublin [place] [id number] ALT [Catalytic activity/Vol] 40 U/L Normal 0-40 [facility] Internal Medicine; [facility] Internal Medicine Work Phone: Comment on above: PATIENT WAS FASTINGP ERFORMED BY: CB [facility] Orzcvt8841 Farmer RoadDublin [place] [id number] ALT enzyme act/vol 40 [iU]/L Normal 0-40 [facility] Internal Medicine Work Phone: Comment on above: PATIENT WAS FASTINGP ERFORMED BY: ROSA MARIA [facility] Xrqtww0172 [address] RoadDublin [place] [id number] AST [Catalytic activity/Vol] 39 U/L Normal 0-40 [facility] Internal Medicine; [facility] Internal Medicine Work Phone: Comment on above: PATIENT WAS FASTINGP ERFORMED BY: ROSA MARIA [facility] Ukcxsr8675 [address] RoadDublin [place] [id number] AST enzyme act/vol 39 [iU]/L Normal 0-40 [facility] Internal Medicine Work Phone: Comment on above: PATIENT WAS FASTINGP ERFORMED BY: ROSA MARIA [facility] Ztzdzw6888 Farmer RoadDublin [place] [id number] Bilirubin mass conc 0.8 mg/dL Normal 0.0-1.2 [facility] Internal Medicine Work Phone: Comment on above: PATIENT WAS FASTINGP ERFORMED BY: CB [facility] Lymejc6582 Farmer RoadDublin [place] [id number] Bilirubin.direct mass conc 0.21 mg/dL Normal 0.00-0.40 [facility] Internal Medicine Work Phone: Comment on above: PATIENT WAS FASTINGP ERFORMED BY: ROSA MARIA [facility] Eetmfw4265 Farmer RoadDublin [place] [id number] Protein mass conc 6.7 g/dL Normal 6.0-8.5 [facility] Internal Medicine Work Phone: Comment on above: PATIENT WAS FASTINGP ERFORMED BY: ROAS MARIA [facility] Srnxre4782 Farmer RoadDublin [place] [id number] Lipid Panel (95754)Ordered B y: Bag Machine Operator on 11-28-2011 Cholesterol in HDL mass conc 91 mg/dL Normal [facility] Work Phone: Comment on above: According to ATP-III Guidelines, HDL-C >59 mg/dL is considered anegative risk factor for CHD. PATIENT WAS FASTINGP ERFORMED BY: CB [facility] Vubzry1027 [address] RoadDublin [place] [id number] Cholesterol in LDL mass conc 99 mg/dL Normal 0-99 [facility] Work Phone: Comment on above: Please note refere nce interval change PATIENT WAS FASTINGP ERFORMED BY: CB [facility] Srjdkg0798 [address] RoadDublin [place] [id number] Cholesterol in LDL/Cholesterol in HDL mass ratio 1.1 {ratio_units} Normal 0.0-3.2 [facility] Work Phone: Comment on above: PATIENT WAS FASTINGP ERFORMED BY: CB [facility] Yjcbon5025 Farmer RoadDublin [place] [id number] Cholesterol in VLDL mass conc 17 mg/dL Normal 5-40 [facility] Work Phone: Comment on above: PATIENT WAS FASTINGP ERFORMED BY: CB [facility] Qcinvn0426 [address] RoadDublin [place] [id number] Cholesterol mass conc 207 mg/dL Abnormal 100-199 [facility] Internal [facility] Work Phone: Comment on above: Please note refere nce interval change PATIENT WAS FASTINGP ERFORMED BY: CB [facility] Aizpti99[address] RoadDublin [place] [id number] Triglyceride mass conc 86 mg/dL Normal 0-149 [facility] Work Phone: Comment on above: Please note refere nce interval change PATIENT WAS FASTINGP ERFORMED BY: CB [facility] Wkzijk1731 [address] RoadDublin [place] [id number] Metabolic Panel, Basic (3964 8)Ordered By: Bag Machine Operator on 11-28-2011 Calcium mass conc 9.6 mg/dL Normal 8.6-10.2 Compreh ensive Internal Medicine Work Phone: Comment on above: PATIENT WAS FASTINGP ERFORMED BY: ROSA MARIA LabConettie MontgomeryKbvapg67[address] [facility]in [place] [id number] Information: 346475,N02240 Chloride molar conc 98 mmol/L Normal 97-108 Compr ehensive Internal Medicine Work Phone: Comment on above: PATIENT WAS FASTINGP ERFORMED BY: ROSA MARIA [facility] Jzmnxm5427 Farmer RoadFrye Regional Medical Centerin [place] [id number] Information: 398748,Q99844 CO2 molar conc 22 mmol/L Normal 20-32 Comprehens brianne Internal Medicine Work Phone: Comment on above: PATIENT WAS FASTINGP ERFORMED BY: ROSA MARIA [facility] Isxges9316 [facility] [id number] Information: 656230,R63751 Creatinine mass conc 0.78 mg/dL Normal 0.57-1.00 Comp rehensive Internal Medicine Work Phone: Comment on above: PATIENT WAS FASTINGP ERFORMED BY: ROSA MARIA LabConettie MontgomeryBhkqvq5686 FarmerMissouri [facility] [id number] Information: 524626,R51718 GFR/1.73 sq M predicted among blacks CKD-EPI vol rate/area (S/P/Bld) 89 mL/min/1.73 Normal Comprehensiv e Internal Medicine Work Phone: Comment on above: PATIENT WAS FASTINGP ERFORMED BY: ROSA MARIA [facility] Qgrxiy3502 [facility] [id number] Information: 889131,P34647 GFR/1.73 sq M predicted among non-blacks CKD-EPI vol rate/area (S/P/Bld) 77 mL/min/1.73 Normal [facility] Work Phone: Comment on above: PATIENT WAS FASTINGP ERFORMED BY: ROSA MARIA [facility] Rsljko0552 [address] [facility] [id number] Information: 400557,G94445 Glucose mass conc 94 mg/dL Normal 65-99 Compreh ensive Internal Medicine Work Phone: Comment on above: PATIENT WAS FASTINGP ERFORMED BY: ROSA MARIA LabConettie BellDuijzt6[address] [facility] [id number] Information: 660513,D71017 Potassium molar conc 4.4 mmol/L Normal 3.5-5.2 Comp rehensive Internal Medicine Work Phone: Comment on above: PATIENT WAS FASTINGP ERFORMED BY: ROSA MARIA [facility] Zdkdwg0572 [address] [facility] [id number] Information: 001534,N82963 Sodium molar conc 138 mmol/L Normal 134-144 Compreh ensive Internal Medicine Work Phone: Comment on above: PATIENT WAS FASTINGP ERFORMED BY: LabChildren[facility]6370 [facility] [id number] Information: 841017,F23364 Urea nitrogen mass conc 16 mg/dL Normal 8-27 [facility] Work Phone: Comment on above: PATIENT WAS FASTINGP ERFORMED BY: [facility] Gphssg9813 [facility] [id number] Information: 312551,D03788 Urea nitrogen/Creatinine mass ratio 21 mg/mg Normal 11-26 [facility] Work Phone: Comment on above: PATIENT WAS FASTINGP ERFORMED BY: [facility] Bihbvx9802 [facility] [id number] Information: 352126,M63781 TSH (53862)Ordered By: Syste m [employer]ified [employer] on 11-28-2011 Thyrotropin Qn 3.640 {uIU/mL} Normal 0.450-4.50 0 [facility] Work Phone: Comment on above: PATIENT WAS FASTINGP ERFORMED BY: ROSA MARIA [facility] Cmovww6494 [facility] [id number] Vitamin B-12 (cyanocobalamin ) (57157)Ordered By: Bag Machine Operator on 11-28-2011 Cobalamin (Vitamin B12) mass conc 547 pg/mL Normal 211-946 [facility] Work Phone: Comment on above: PATIENT WAS FASTINGP ERFORMED BY: ROSA MARIA Bell6370 [facility] [id number] 5-HIAA,Quant.,24 Hr UrineOrd ered By: Bag Machine Operator on 10-31-2010 5-Hydroxyindoleacetat e mass conc (24H U) 2.1 mg/L Normal Comprehensiv e Internal Medicine Work Phone: Comment on above: PERFORMED BY: Knip [address] [id number] Information: 10/30/10@6AM 10/31/10@7AM 5-Hydroxyindoleacetat e mass/time (24H U) 3.5 {mg/24_hr} Normal 0.0-14.9 Comprehensiv e Internal Medicine Work Phone: Comment on above: PERFORMED BY: TeraFirrma[address] [id number] Information: 10/30/10@6AM 10/31/10@7AM CATECHOLAMINES TOTAL, URINE (86972)Ordered By: Bag Machine Operator on 10-21-2010 Dopamine mass conc (U) 131 ug/L Normal [facility] Work Phone: Comment on above: PATIENT NOT FASTINGP ERFORMED BY: [address] [id number] BY: ROSA MARIA [address] Medianettie BellJofohd1904 [facility] [id number] Information: SRC:UR [id number] START/@820AM END/10/20/10@800AM 2150ML Dopamine mass/time (24H U) 282 {ug/24_hr} Normal 0-510 [facility] Work Phone: Comment on above: PATIENT NOT FASTINGP ERFORMED BY: IRAIS LookMedBook[address] [id number] BY: ROSA MARIA [address] Medianettie MontgomeryBigzpn5263 [facility] [id number] Information: SRC:UR [id number] START/@820AM END/10/20/10@800AM 2150ML Epinephrine mass conc (U) 6 ug/L Normal [facility] Work Phone: Comment on above: PATIENT NOT FASTINGP ERFORMED BY: IRAIS [facility] [address] [id number] BY: ROSA MARIA [facility] Hzcdlv6385 [facility] [id number] Information: SRC:UR [id number] START/@820AM END/10/20/10@800AM 2150ML Epinephrine mass/time (24H U) 13 {ug/24_hr} Normal 0-20 [facility] Work Phone: Comment on above: PATIENT NOT FASTINGP ERFORMED BY: IRAIS [facility] [address] [id number] BY: ROSA MARIA LabConettie MontgomeryXxsymc8868 [facility] [id number] Information: SRC:UR [id number] START/@820AM END/10/20/10@800AM 2150ML Norepinephrine mass conc (U) 18 ug/L Normal [facility] Work Phone: Comment on above: PATIENT NOT FASTINGP ERFORMED BY: IRAIS [facility] [address] [id number] BY: ROSA MARIA [facility] Vbktsp3968 [facility] [id number] Information: SRC:UR [id number] START/@820AM END/10/20/10@800AM 2150ML Norepinephrine mass/time (24H U) 39 {ug/24_hr} Normal 0-135 [facility] Work Phone: Comment on above: PATIENT NOT FASTINGP ERFORMED BY: IRAIS [facility] [address] [id number] BY: ROSA MARIA [facility] Kgtbhw6053 [facility] [id number] Information: SRC:UR [id number] START/@820AM END/10/20/10@800AM 2150ML METANEPHRINES - URINE (98787 )Ordered By: Bag Machine Operator on 10-21-2010 Metanephrine mass/time (24H U) 153 {ug/24_hr} Normal 35-460 [facility] Work Phone: Comment on above: PATIENT NOT FASTINGP ERFORMED BY: BN [facility] Uecrvzbccs6354 [facility] [id number] BY: CB [facility] Dbtmhr7[address] [facility] [id number] Metanephrines mass conc (24H U) 71 ug/L Normal [facility] Work Phone: Comment on above: PATIENT NOT FASTINGP ERFORMED BY: BN [facility] [address] [id number] BY: CB [facility] Epurjk6971 [address] [facility] [id number] Normetanephrine mass conc (24H U) 136 ug/L Normal [facility] Work Phone: Comment on above: PATIENT NOT FASTINGP ERFORMED BY: BN [facility] Bbayegxycn[address] [id number] BY: CB [facility] Jormwu[address] [facility]in [place] [id number] Normetanephrine mass/time (24H U) 292 {ug/24_hr} Normal 110-1050 [facility] Work Phone: Comment on above: PATIENT NOT FASTINGP ERFORMED BY: BN [facility] [address] [id number] BY: CB [facility] Vrabsm3500 [address] [facility] [id number] URINE VMA (72241)Ordered By: Bag Machine Operator on 10-21-2010 Vanillylmandelate mass conc (U) 2.5 mg/L Normal [facility] Work Phone: Comment on above: PATIENT NOT FASTINGP ERFORMED BY: [facility] Wqxhzntbkx3026 [facility] [id number] BY: LabCoVirtua VoorheesZyyjlp9475 [facility] [id number] Vanillylmandelate mass/time (24H U) 5.4 {mg/24_hr} Normal 0.0-7.5 [facility] Work Phone: Comment on above: PATIENT NOT FASTINGP ERFORMED BY: [facility] [address] [id number] BY: Lab[address] [id number] FSH 4309Ordered By: Ayush tapia on 10-04-2010 FSH 4309 102.8 m[iU]/mL Normal Comprehens brianne Internal Medicine Work Phone: Comment on above: Follicular phase 3.5 - 12.5 Ovulation phase 4.7 - 21.5 Luteal phase 1.7 - 7.7 Postmenopausal 25.8 - 134.8Performed at: [facility] LabChildren[facility]6[address] [place], [place] [id number] Director: Alexus Marroquin MD, Phone: [phone] CORTISOL FREE (44368)Ordered By: Bag Machine Operator on 08-27-2010 Cortisol Free mass conc (U) 35 ug/L Normal [facility] Work Phone: Comment on above: PATIENT NOT FASTINGP ERFORMED BY: [facility] [address] [id number] Information: [id number] START08/26/10@945AM END 08/27/10@820AM Cortisol Free mass/time (24H U) 68 {ug/24_hr} Abnormal 0-50 [facility] Work Phone: Comment on above: PATIENT NOT FASTINGP ERFORMED BY: [facility] [address] [id number] Information: [id number] START08/26/10@945AM END 08/27/10@820AM CortisolOrdered By: Ayush tapia on 08-20-2010 Cortisol mass conc 26.6 ug/dL Abnormal 2.3-19.4 [facility] Internal Medicine Work Phone: Comment on above: Cortisol AM 6.2 - 19 .4 Cortisol PM 2.3 - 11.9 A courtesy copy of t his report has been sent [phone].PERFORMED BY: Octmami FarmerMEETiiNSentara Albemarle [facility] [id number] Hepatic Function Panel (7)Or dered By: Bag Machine Operator on 08-20-2010 Albumin mass conc 4.7 g/dL Normal 3.6-4.8 [facility] Internal Medicine Work Phone: Comment on above: A courtesy copy of t his report has been sent [phone].PERFORMED BY: Octmami [facility] [id number] Information: [id number] ALP enzyme act/vol 98 [iU]/L Normal 25-165 [facility] Internal Medicine Work Phone: Comment on above: A courtesy copy of t his report has been sent [phone].PERFORMED BY: Octmami [facility] [id number] Information: [id number] ALT enzyme act/vol 40 [iU]/L Normal 0-40 [facility] Internal Medicine Work Phone: Comment on above: A courtesy copy of t his report has been sent [phone].PERFORMED BY: Octmami [facility] [id number] Information: [id number] AST enzyme act/vol 39 [iU]/L Normal 0-40 [facility] Internal Medicine Work Phone: Comment on above: A courtesy copy of t his report has been sent [phone].PERFORMED BY: Octmami [facility] [id number] Information: [id number] Bilirubin mass conc 0.7 mg/dL Normal 0.0-1.2 Compr ehensive Internal Medicine Work Phone: Comment on above: A courtesy copy of t his report has been sent [phone].PERFORMED BY: ROSA MARIA [facility] Qdptvf4086 [facility] [id number] Information: [id number] Bilirubin.direct mass conc 0.20 mg/dL Normal 0.00-0.40 [facility] Work Phone: Comment on above: A courtesy copy of t his report has been sent [phone].PERFORMED BY: ROSA MARIA [facility] Jvuemj9324 [facility] [id number] Information: [id number] Protein mass conc 7.1 g/dL Normal 6.0-8.5 Compreh ensive Internal Medicine Work Phone: Comment on above: A courtesy copy of t his report has been sent [phone].PERFORMED BY: ROSA MARIA [employer] [id number] Information: [id number] URINALYSIS (72818)Ordered By : Bag Machine Operator on 05-30-2010 Appearance Nom (U) Clear Normal Compre [facility] Internal Medicine Work Phone: Comment on above: PATIENT NOT FASTINGP ERFORMED BY: ROSA MARIA [facility]6370 [facility] [id number] Information: E53876 Bilirubin Ql (U) Negative Normal Comprehe nsive Internal Medicine Work Phone: Comment on above: PATIENT NOT FASTINGP ERFORMED BY: LabChildren'[facility] Michigan6370 [facility] [id number] Information: [id number] Bilirubin Ql (U) Negative Normal Comprehe nsive Internal Medicine; [facility] Work Phone: Comment on above: PATIENT NOT FASTINGP ERFORMED BY: [place] 6422570 [facility] [id number] Information: C09104 Color Nom (U) Yellow Normal Comprehensi ve Internal Medicine Work Phone: Comment on above: PATIENT NOT FASTINGP ERFORMED BY: ROSA MARIA [facility] Cqntyr4018 Farmer RoadSentara Albemarle Medical Center [id number] Information: X62060 Glucose Ql (U) Negative Normal Comprehens brianne Internal Medicine Work Phone: Comment on above: PATIENT NOT FASTINGP ERFORMED BY: ROSA MARIA [facility] Rcjcco8471 Farmer RoadSentara Albemarle Medical Center [id number] Information: A67219 Glucose Ql (U) Negative Normal Comprehens brianne Internal Medicine; [facility] Work Phone: Comment on above: PATIENT NOT FASTINGP ERFORMED BY: ROSA MARIA [facility] Wihmka4740 Farmer RoadSentara Albemarle Medical Center [id number] Information: O64453 Hemoglobin Ql (U) Negative Normal Compreh ensive Internal Medicine Work Phone: Comment on above: PATIENT NOT FASTINGP ERFORMED BY: ROSA MARIA [facility] Bhxzgv3702 [address] [facility] [id number] Information: G06518 Hemoglobin Ql (U) Negative Normal Compreh ensive Internal Medicine; [facility] Work Phone: Comment on above: PATIENT NOT FASTINGP ERFORMED BY: ROSA MARIA [facility] Qnukag5654 Farmer RoadSentara Albemarle Medical Center [id number] Information: P26464 Ketones Ql (U) Negative Normal Comprehens brianne Internal Medicine Work Phone: Comment on above: PATIENT NOT FASTINGP ERFORMED BY: ROSA MARIA [facility] Cfqxom5208 Farmer RoadSentara Albemarle Medical Center [id number] Information: Q23385 Ketones Ql (U) Negative Normal Comprehens brianne Internal Medicine; [facility] Work Phone: Comment on above: PATIENT NOT FASTINGP ERFORMED BY: ROSA MARIA [facility] Huxfvh4466 Farmer RoadFrye Regional Medical Centerin [place] [id number] Information: D05777 Leukocyte esterase Test strip Ql (U) Negative Normal [facility] Work Phone: Comment on above: PATIENT NOT FASTINGP ERFORMED BY: ROSA MARIA Montgomerylin6[address] [facility] [place] [id number] Information: X19419 Leukocyte esterase Test strip Ql (U) Negative Normal [facility]; [facility] Work Phone: Comment on above: PATIENT NOT FASTINGP ERFORMED BY: ROSA MARIA Montgomerylin[address] [facility] [id number] Information: D35840 Microscopic observation LM Nom (Urine sed) MICRON Normal [facility] Work Phone: Comment on above: Microscopic follows if indicated. PATIENT NOT FASTINGP ERFORMED BY: ROSA MARIA Montgomerylin6[address] [facility] [id number] Information: T20554 Nitrite Ql (U) Negative Normal Comprehens brianne Internal Medicine Work Phone: Comment on above: PATIENT NOT FASTINGP ERFORMED BY: ROSA MARIA Montgomerylin6[address] [facility] [id number] Information: T85643 Nitrite Ql (U) Negative Normal Comprehens brianne Internal Medicine; [facility] Work Phone: Comment on above: PATIENT NOT FASTINGP ERFORMED BY: ROSA MARIA Montgomerylin6[address] [facility] [id number] Information: L81123 pH (U) 6.0 [pH] Normal 5.0-7.5 [facility] Work Phone: Comment on above: PATIENT NOT FASTINGP ERFORMED BY: ROSA MARIA Gonzales Hubuxh[address] [facility]in [place] [id number] Information: M33114 Protein Ql (U) Negative Normal Comprehens brianne Internal Medicine Work Phone: Comment on above: PATIENT NOT FASTINGP ERFORMED BY: ROSA MARIA Gonzalesrp Mgqtsz3274 [address] [facility] [id number] Information: F82550 Protein Ql (U) Negative Normal Comprehens brianne Internal Medicine; [facility] Work Phone: Comment on above: PATIENT NOT FASTINGP ERFORMED BY: ROSA MARIA [facility]6370 [facility] [id number] Information: O38149 Specific gravity Relative Density (U) 1.014 1 Normal 1.005-1.03 0 [facility] Work Phone: Comment on above: PATIENT NOT FASTINGP ERFORMED BY: [address] [id number] Information: N68231 Urobilinogen (U) [Mass/Vol] 0.2 mg/dL Normal 0.0-1.9 [facility]; [facility] Work Phone: Comment on above: PATIENT NOT FASTINGP ERFORMED BY: [place] 6422570 [facility] [id number] Information: O58704 Urobilinogen Test strip mass conc (U) 0.2 mg/dL Normal 0.0-1.9 Comprehensiv e Internal Medicine Work Phone: Comment on above: PATIENT NOT FASTINGP ERFORMED BY: [address] [id number] Information: M95303 URINE HUONG CULTURE (MAMADOU COL COUNT) (64274)Ordered By: Bag Machine Operator on 05-30-2010 Bacteria identified Cx Nom (U) Final report Normal [facility] Work Phone: Comment on above: PATIENT NOT FASTINGP ERFORMED BY: [address] [id number] Information: SRC:UR A85440 Bacteria identified Cx Nom (U) NG36 Normal [facility] Work Phone: Comment on above: No growth in 36 - 48 hours. PATIENT NOT FASTINGP ERFORMED BY: [place] 6422570 [facility] [id number] Information: SRC:UR F72062 URINE HUONG CULTURE-IDENTIFICA TN (43611)Ordered By: Bag Machine Operator on 05-08-2010 Bacteria identified Cx Nom (U) Enterococcus faecalis Normal Comprehens brianne Internal Medicine Work Phone: Comment on above: 5,000 Colonies/mLNot e: this isolate is vancomycin-susceptible.This information is provided for epidemiologic purposesonly: vancomycin is not among the antibioticsrecommended for therapy of urinary tract infectionscaused by Enterococcus.For Enterococcus species, cephalosporins, aminoglycosides (except forhigh-level resistance screening), clindamycin, and trimethoprim-sulfamethoxazole are not effective clinically. Fluoroquinolones areused primarily for treating urinary tract infections. (CLSI, L289-V12,2009) PATIENT NOT FASTINGP ERFORMED BY: CustomerXPs SoftwareFormerly [facility] [id number] Information: B23842 Bacteria identified Cx Nom (U) Final report Normal [facility] Work Phone: Comment on above: PATIENT NOT FASTINGP ERFORMED BY: CustomerXPs SoftwareFormerly [facility] [id number] Information: B48291 Other Antibiotic [facility] prehensive Internal Medicine Work Phone: Comment on above: S = Susceptibl e; I = Intermediate; R = Resistant P = Positive; N = Negative MICS are expressed in micrograms per mL Antibiotic RSLT#1 RSLT#2 RSLT#3 RSLT#4Ciprofloxacin SLevofloxacin SNitrofurantoin SPenicillin SVancomycin S PATIENT NOT FASTINGP ERFORMED BY: MoneyHero.com.hkSentara Albemarle Medical Center [id number] Information: [id number] CBC With Differential/Platel etOrdered By: Bag Machine Operator on 04-30-2010 Basophils #/vol (Bld) 0.1 {x10E3/uL} Normal 0.0-0.2 [facility] Work Phone: Comment on above: A courtesy copy of t his report has been sent [phone].PATIENT WAS FASTINGPERFORMED BY: CustomerXPs SoftwareFormerly [facility] [id number] Information: [id number] Basophils/100 WBC (Bld) 1 % Normal 0-3 [facility] Work Phone: Comment on above: A courtesy copy of t his report has been sent [phone].PATIENT WAS FASTINGPERFORMED BY: ROSA MARIA [address] [id number] Information: [id number] Eosinophils #/vol (Bld) 0.2 {x10E3/uL} Normal 0.0-0.4 [facility] Work Phone: Comment on above: A courtesy copy of t his report has been sent [phone].PATIENT WAS FASTINGPERFORMED BY: ROSA MARIA [address] [id number] Information: [id number] Eosinophils/100 WBC (Bld) 3 % Normal 0-7 [facility] Work Phone: Comment on above: A courtesy copy of t his report has been sent [phone].PATIENT WAS FASTINGPERFORMED BY: ROSA MARIA [address] [id number] Information: [id number] Erythrocyte distribution width Ratio (RBC) 13.3 % Normal 11.7-15.0 [facility] Work Phone: Comment on above: A courtesy copy of t his report has been sent [phone].PATIENT WAS FASTINGPERFORMED BY: [address] [id number] Information: [id number] Hematocrit Volume Fraction (Bld) 41.4 % Normal 34.0-44.0 [facility] Work Phone: Comment on above: A courtesy copy of t his report has been sent [phone].PATIENT WAS FASTINGPERFORMED BY: [place] 6422570 [facility] [id number] Information: [id number] Hemoglobin mass conc (Bld) 14.4 g/dL Normal 11.5-15.0 [facility] Work Phone: Comment on above: A courtesy copy of t his report has been sent [phone].PATIENT WAS FASTINGPERFORMED BY: ROSA MARIA [address] [id number] Information: [id number] Immature granulocytes #/vol (Bld) 0.0 {x10E3/uL} Normal 0.0-0.1 [facility] Work Phone: Comment on above: A courtesy copy of t his report has been sent [phone].PATIENT WAS FASTINGPERFORMED BY: [address] [id number] Information: [id number] Immature granulocytes/100 WBC (Bld) 0 % Normal 0-1 [facility] Work Phone: Comment on above: A courtesy copy of t his report has been sent [phone].PATIENT WAS FASTINGPERFORMED BY: [address] [id number] Information: [id number] Lymphocytes #/vol (Bld) 1.9 {x10E3/uL} Normal 0.7-4.5 [facility] Work Phone: Comment on above: A courtesy copy of t his report has been sent [phone].PATIENT WAS FASTINGPERFORMED BY: [address] [id number] Information: [id number] Lymphocytes/100 WBC (Bld) 37 % Normal 14-46 [facility] Work Phone: Comment on above: A courtesy copy of t his report has been sent [phone].PATIENT WAS FASTINGPERFORMED BY: [address] [id number] Information: [id number] MCH Entitic mass (RBC) 31.0 pg Normal 27.0-34.0 [facility] Work Phone: Comment on above: A courtesy copy of t his report has been sent [phone].PATIENT WAS FASTINGPERFORMED BY: ROSA MARIA [address] [id number] Information: [id number] MCHC mass conc (RBC) 34.8 g/dL Normal 32.0-36.0 [facility] Work Phone: Comment on above: A courtesy copy of t his report has been sent [phone].PATIENT WAS FASTINGPERFORMED BY: [address] [id number] Information: [id number] MCV Entitic volume (RBC) 89 fL Normal 80-98 [facility] Work Phone: Comment on above: A courtesy copy of t his report has been sent [phone].PATIENT WAS FASTINGPERFORMED BY: [address] [id number] Information: [id number] Monocytes #/vol (Bld) 0.4 {x10E3/uL} Normal 0.1-1.0 [facility] Work Phone: Comment on above: A courtesy copy of t his report has been sent [phone].PATIENT WAS FASTINGPERFORMED BY: [address] [id number] Information: [id number] Monocytes/100 WBC (Bld) 8 % Normal 4-13 [facility] Work Phone: Comment on above: A courtesy copy of t his report has been sent [phone].PATIENT WAS FASTINGPERFORMED BY: [address] [id number] Information: [id number] Neutrophils #/vol (Bld) 2.6 {x10E3/uL} Normal 1.8-7.8 [facility] Internal Medicine Work Phone: Comment on above: A courtesy copy of t his report has been sent [phone].PATIENT WAS FASTINGPERFORMED BY: [address] [id number] Information: CC:[id number] Neutrophils/100 WBC (Bld) 51 % Normal 40-74 [facility] Internal Medicine Work Phone: Comment on above: A courtesy copy of t his report has been sent [phone].PATIENT WAS FASTINGPERFORMED BY: [address] [id number] Information: CC:[id number] Platelets #/vol (Bld) 246 {x10E3/uL} Normal 140-415 [facility] Internal Medicine Work Phone: Comment on above: A courtesy copy of t his report has been sent [phone].PATIENT WAS FASTINGPERFORMED BY: [place] 6422570 [facility] [id number] Information: [id number] RBC #/vol (Bld) 4.65 {x10E6/uL} Normal 3.80-5.10 [facility] Internal Medicine Work Phone: Comment on above: A courtesy copy of t his report has been sent [phone].PATIENT WAS FASTINGPERFORMED BY: [facility]6370 [facility] [id number] Information: [id number] WBC #/vol (Bld) 5.2 {x10E3/uL} Normal 4.0-10.5 [facility] Internal Medicine Work Phone: Comment on above: A courtesy copy of t his report has been sent [phone].PATIENT WAS FASTINGPERFORMED BY: [address] [id number] Information: CC:[id number] Comp. Metabolic Panel (14)Or dered By: Bag Machine Operator on 04-30-2010 Albumin mass conc 4.6 g/dL Normal 3.6-4.8 [facility] Internal Medicine Work Phone: Comment on above: A courtesy copy of t his report has been sent [phone].PATIENT WAS FASTINGPERFORMED BY: [employer] BlazeMineral Area Regional Medical CenterLbetnc9337 [facility] [id number] Albumin/Globulin mass ratio 1.9 {ratio} Normal 1.1-2.5 [facility] Internal Medicine Work Phone: Comment on above: A courtesy copy of t his report has been sent [phone].PATIENT WAS FASTINGPERFORMED BY: [employer] Xmwrla1491 [facility] [id number] ALP enzyme act/vol 100 [iU]/L Normal 25-165 [facility] Internal Medicine Work Phone: Comment on above: A courtesy copy of t his report has been sent [phone].PATIENT WAS FASTINGPERFORMED BY: [employer] Cfsipo3199 [facility] [id number] ALT enzyme act/vol 42 [iU]/L Abnormal 0-40 [facility] Internal Medicine Work Phone: Comment on above: A courtesy copy of t his report has been sent [phone].PATIENT WAS FASTINGPERFORMED BY: [employer] MediaGallup Indian Medical CenterWjkzvc8815 [facility] [id number] AST enzyme act/vol 43 [iU]/L Abnormal 0-40 [facility] Internal Medicine Work Phone: Comment on above: A courtesy copy of t his report has been sent [phone].PATIENT WAS FASTINGPERFORMED BY: [employer] MediaVirtua VoorheesQlmpgx0700 [facility] [id number] Bilirubin mass conc 0.8 mg/dL Normal 0.0-1.2 [facility] Internal Medicine Work Phone: Comment on above: A courtesy copy of t his report has been sent [phone].PATIENT WAS FASTINGPERFORMED BY: [employer] Rmkzuf9549 [facility] [id number] Calcium mass conc 10.0 mg/dL Normal 8.6-10.2 Compreh ensive Internal Medicine Work Phone: Comment on above: A courtesy copy of t his report has been sent [phone].PATIENT WAS FASTINGPERFORMED BY: LabTa[employer] Ohjrgc9143 [facility] [id number] Chloride molar conc 100 mmol/L Normal 97-108 Compr ensive Internal Medicine Work Phone: Comment on above: A courtesy copy of t his report has been sent [phone].PATIENT WAS FASTINGPERFORMED BY: [employer]6370 [facility] [id number] CO2 molar conc 25 mmol/L Normal 20-32 Comprehens brianne Internal Medicine Work Phone: Comment on above: A courtesy copy of t his report has been sent [phone].PATIENT WAS FASTINGPERFORMED BY: [employer] Gpiyfl4329 [facility] [id number] Creatinine mass conc 0.80 mg/dL Normal 0.57-1.00 [facility] Work Phone: Comment on above: A courtesy copy of t his report has been sent [phone].PATIENT WAS FASTINGPERFORMED BY: LabTa[employer] Mnzjxa8671 [facility] [id number] GFR/1.73 sq M predicted among blacks MDRD vol rate/area (S/P/Bld) mL/min/{1.73_m2} Normal Comprehensi ve Internal Medicine Work Phone: Comment on above: Note: Persistent red uction for 3 months or more in an eGFR<60 mL/min/1.73 m2 defines CKD. Patients with eGFR values>/=60 mL/min/1.73 m2 may also have CKD if evidence of persistentproteinuria is present. Additional information may be found [email or web address]. A courtesy copy of t his report has been sent [phone].PATIENT WAS FASTINGPERFORMED BY: [employer] BlazeMineral Area Regional Medical CenterFyplau4882 [facility] [id number] GFR/1.73 sq M.predicted MDRD vol rate/area mL/min/{1.73_m2} Normal [facility] Work Phone: Comment on above: A courtesy copy of t his report has been sent [phone].PATIENT WAS FASTINGPERFORMED BY: [facility]Children[facility]6370 [facility] [id number] Globulin mass conc (S) 2.4 g/dL Normal 1.5-4.5 [facility] Work Phone: Comment on above: A courtesy copy of t his report has been sent [phone].PATIENT WAS FASTINGPERFORMED BY: [facility] Fmoizd2592 [facility] [id number] Glucose mass conc 107 mg/dL Abnormal 65-99 Compreh ensive Internal Medicine Work Phone: Comment on above: A courtesy copy of t his report has been sent [phone].PATIENT WAS FASTINGPERFORMED BY: [employer] Tzxzgx6535 [facility] [id number] Potassium molar conc 4.8 mmol/L Normal 3.5-5.2 Comp rehensive Internal Medicine Work Phone: Comment on above: A courtesy copy of t his report has been sent [phone].PATIENT WAS FASTINGPERFORMED BY: [facility] Mxpwvq1856 [facility] [id number] Protein mass conc 7.0 g/dL Normal 6.0-8.5 Compreh ensive Internal Medicine Work Phone: Comment on above: A courtesy copy of t his report has been sent [phone].PATIENT WAS FASTINGPERFORMED BY: [facility] Ybupjf1440 [facility] [id number] Sodium molar conc 139 mmol/L Normal 135-145 [facility] Internal Medicine Work Phone: Comment on above: A courtesy copy of t his report has been sent [phone].PATIENT WAS FASTINGPERFORMED BY: [employer]70 [facility] [id number] Urea nitrogen mass conc 18 mg/dL Normal 8-27 [facility] Internal Medicine Work Phone: Comment on above: A courtesy copy of t his report has been sent [phone].PATIENT WAS FASTINGPERFORMED BY: [employer]70 [facility] [id number] Urea nitrogen/Creatinine mass ratio 23 mg/mg Normal 11-26 [facility] Internal Medicine Work Phone: Comment on above: A courtesy copy of t his report has been sent [phone].PATIENT WAS FASTINGPERFORMED BY: [employer]70 [facility] [id number] LDHOrdered By: System Manage r on 04-30-2010 LDH enzyme act/vol 199 [iU]/L Normal 100-250 [facility] Internal Medicine Work Phone: Comment on above: A courtesy copy of t his report has been sent [phone].PATIENT WAS FASTINGPERFORMED BY: [employer] Zacjfm1600 [facility] [id number] Sedimentation Rate-Westergre nOrdered By: Bag Machine Operator on 04-30-2010 ESR Velocity (Bld) 4 mm/h Normal 0-30 [facility] Internal Medicine Work Phone: Comment on above: A courtesy copy of t his report has been sent [phone].PATIENT WAS FASTINGPERFORMED BY: [employer]6370 [facility] [id number] Vitamin B68Sxzmkol By: [employer] m [employer] on 04-30-2010 Cobalamin (Vitamin B12) mass conc 1537 pg/mL Abnormal 211-946 [facility] Internal Medicine Work Phone: Comment on above: A courtesy copy of t his report has been sent [phone].PATIENT WAS FASTINGPERFORMED BY: [employer] MD [id number] Vitamin D, 25-HydroxyOrdered By: Bag Machine Operator on 04-30-2010 Calcitriol mass conc 51.4 ng/mL Normal 32.0-100.0 Comp rehensive Internal Medicine Work Phone: Comment on above: Recent studies consi alena the lower limit of 32.0 ng/mL to be athreshold for optimal health.Jose GOMEZ. J Nutr. 2004;135(2):317-22. A courtesy copy of t his report has been sent [phone].PATIENT WAS FASTINGPERFORMED BY: [employer]6370 [facility]Former[facility] [id number] URINE HUONG CULTURE-MAMADOU COL C OUNT (08097)Ordered By: Bag Machine Operator on 04-22-2010 Bacteria identified Cx Nom (U) Final report Normal [facility] Work Phone: Comment on above: PATIENT NOT FASTINGP ERFORMED BY: [employer]6370 [facility]Former[facility] [id number] Information: SRC:UR C75401 Bacteria identified Cx Nom (U) MUG Normal [facility] Work Phone: Comment on above: Mixed urogenital garima ra500 Colonies/mL PATIENT NOT FASTINGP ERFORMED BY: Notch70 [facility]Former[facility] [id number] Information: SRC:UR [id number] Urinalysis, Office (45788)Or dered By: ROBYN Monroy on 04-22-2010 Bilirubin Ql (U) Negative Normal Comprehe nsive Internal Medicine Work Phone: Bilirubin Ql (U) Negative Normal Comprehe nsive Internal Medicine; [facility] Work Phone: Glucose Test strip (U) [Mass/Vol] Negative Normal [facility]; [facility] Work Phone: Glucose Test strip mass conc (U) Negative Normal [facility] Work Phone: Hemoglobin Ql (U) Hemolyzed Moderate Normal [facility] Work Phone: Ketones Ql (U) Negative Normal Comprehens brianne [facility] Work Phone: Ketones Ql (U) Negative Normal Comprehens brianne [facility]; [facility] Work Phone: Leukocyte esterase Test strip Ql (U) Negative Normal [facility] Work Phone: Leukocyte esterase Test strip Ql (U) Negative Normal [facility]; [facility] Work Phone: Nitrite Ql (U) Negative Normal Comprehens brianne [facility] Medicine Work Phone: Nitrite Ql (U) Negative Normal Comprehens brianne Internal Medicine; [facility] Internal [facility] Work Phone: pH (U) 6.0 [pH] Normal [facility] Work Phone: Protein Ql (U) Negative Normal Comprehens brianne [facility] Medicine Work Phone: Protein Ql (U) Negative Normal Comprehens brianne Internal Medicine; [facility] Internal Medicine Work Phone: Specific gravity Relative Density (U) 1.020 1 Normal Comprehensi Internal Medicine Work Phone: Urobilinogen mass/time (24H U) 2 mg/dL Normal [facility] Work Phone: BILAT SCRN DIGITAL & CADOrde red By: Bag Machine Operator on 02-20-2010 BILAT SCRN DIGITAL & CAD See Note Normal [facility] Internal Medicine Work Phone: Comment on above: MAMMOGRAPHY - BILATE RAL SCREENING INDICATION:Routine annual screening examination. PERTINENT HISTORY:Non-contributory. TECHNIQUE:Digital examination. Mediolateral oblique (MLO) and craniocaudad (CC)views of both breasts were obtained. CAD was performed on this study. COMPARISON:July 23, 2005, January 23, 2006, October 11, 2008 October 25, 2008 FINDINGS:The breast composition is heterogeneously dense. There are no masses or suspicious microcalcifications. No other significant abnormalities are identified. IMPRESSION:Normal bilateral screening mammogram. Yearly follow-up recommended. ASSESSMENT CATEGORY:BIRADS Category 2: Benign finding(s). A letter regarding these resultswill be sent to the patient by the facility. Approximately 10% of breast cancers are not detected by mammography. Anormal mammogram should not delay biopsy of a clinically suspiciousabnormality. Dictated on 02/20/10 1214 by ABILIO DONNELLYTranscribed on 02/24/101725 by ITS IMPORTSign by ABILIO DONNELLY on 02/24/101726 Sign by: ABILIO DONNELLY CALCIFIDIOL (70322) VIT D 25 Ordered By: Bag Machine Operator on 11-12-2009 Calcitriol mass conc 49.3 ng/mL Normal 32.0-100.0 [facility] Internal Medicine Work Phone: Comment on above: Recent studies consi alena the lower limit of 32.0 ng/mL to be athreshold for optimal health.Jose GOMEZ. J Nutr. 2004;135(2):317-22. PATIENT WAS FASTINGP ERFORMED BY: [employer]6370 [facility] GamesSaint [facility]bron [id number] CBC WITH MANUAL DIFF (26526) Ordered By: Bag Machine Operator on 11-12-2009 Basophils #/vol (Bld) 0.0 {x10E3/uL} Normal 0.0-0.2 [facility] Work Phone: Comment on above: PATIENT WAS FASTINGP ERFORMED BY: [employer]6370 [facility]Former[facility] [id number] Information: [id number] Basophils (Bld) [#/Vol] 0.0 10*3/uL Normal 0.0-0.2 [facility]; [facility] Work Phone: Comment on above: PATIENT WAS FASTINGP ERFORMED BY: Notch70 [facility]Former[facility] [id number] Information: [id number] Basophils/100 WBC (Bld) 1 % Normal 0-3 [facility] Work Phone: Comment on above: PATIENT WAS FASTINGP ERFORMED BY: ROSA MARIA [facility]6370 [facility] [id number] Information: [id number] Eosinophils #/vol (Bld) 0.1 {x10E3/uL} Normal 0.0-0.4 [facility] Work Phone: Comment on above: PATIENT WAS FASTINGP ERFORMED BY: [address] [id number] Information: [id number] Eosinophils (Bld) [#/Vol] 0.1 10*3/uL Normal 0.0-0.4 [facility]; [facility] Work Phone: Comment on above: PATIENT WAS FASTINGP ERFORMED BY: ROSA MARIA [address] [id number] Information: [id number] Eosinophils/100 WBC (Bld) 2 % Normal 0-7 [facility] Work Phone: Comment on above: PATIENT WAS FASTINGP ERFORMED BY: [place] 6422570 [facility] [id number] Information: [id number] Erythrocyte distribution width Ratio (RBC) 12.8 % Normal 11.7-15.0 [facility] Work Phone: Comment on above: PATIENT WAS FASTINGP ERFORMED BY: [place] 6422570 [facility] [id number] Information: [id number] Hematocrit Volume Fraction (Bld) 40.4 % Normal 34.0-44.0 [facility] Work Phone: Comment on above: PATIENT WAS FASTINGP ERFORMED BY: [place] 6422570 [facility] [id number] Information: [id number] Hemoglobin mass conc (Bld) 13.7 g/dL Normal 11.5-15.0 [facility] Work Phone: Comment on above: PATIENT WAS FASTINGP ERFORMED BY: [place] 6422570 [facility] [id number] Information: [id number] Immature granulocytes #/vol (Bld) 0.0 {x10E3/uL} Normal 0.0-0.1 [facility] Work Phone: Comment on above: PATIENT WAS FASTINGP ERFORMED BY: [address] [id number] Information: [id number] Immature granulocytes (Bld) [#/Vol] 0.0 10*3/uL Normal 0.0-0.1 [facility]; [facility] Work Phone: Comment on above: PATIENT WAS FASTINGP ERFORMED BY: Elder[address] [id number] Information: [id number],[id number] Immature granulocytes/100 WBC (Bld) 0 % Normal 0-1 [facility] Work Phone: Comment on above: PATIENT WAS FASTINGP ERFORMED BY: [address] [id number] Information: [id number] Lymphocytes #/vol (Bld) 1.9 {x10E3/uL} Normal 0.7-4.5 [facility] Work Phone: Comment on above: PATIENT WAS FASTINGP ERFORMED BY: [address] [id number] Information: [id number] Lymphocytes (Bld) [#/Vol] 1.9 10*3/uL Normal 0.7-4.5 [facility]; [facility] Work Phone: Comment on above: PATIENT WAS FASTINGP ERFORMED BY: [place] 6422570 [facility] [id number] Information: [id number] Lymphocytes/100 WBC (Bld) 36 % Normal 14-46 [facility] Work Phone: Comment on above: PATIENT WAS FASTINGP ERFORMED BY: ROSA MARIA [facility]6370 [facility] [id number] Information: [id number] MCH Entitic mass (RBC) 29.8 pg Normal 27.0-34.0 [facility] Work Phone: Comment on above: PATIENT WAS FASTINGP ERFORMED BY: [address] [id number] Information: [id number] MCHC mass conc (RBC) 33.9 g/dL Normal 32.0-36.0 [facility] Internal Medicine Work Phone: Comment on above: PATIENT WAS FASTINGP ERFORMED BY: ROSA MARIA [address] [id number] Information: [id number] MCV Entitic volume (RBC) 88 fL Normal 80-98 [facility] Work Phone: Comment on above: PATIENT WAS FASTINGP ERFORMED BY: [place] 6422570 [facility] [id number] Information: [id number] Monocytes #/vol (Bld) 0.4 {x10E3/uL} Normal 0.1-1.0 [facility] Work Phone: Comment on above: PATIENT WAS FASTINGP ERFORMED BY: [place] 6422570 [facility] [id number] Information: [id number] Monocytes (Bld) [#/Vol] 0.4 10*3/uL Normal 0.1-1.0 [facility]; [facility] Work Phone: Comment on above: PATIENT WAS FASTINGP ERFORMED BY: [place] 6422570 [facility] [id number] Information: [id number] Monocytes/100 WBC (Bld) 7 % Normal 4-13 [facility] Work Phone: Comment on above: PATIENT WAS FASTINGP ERFORMED BY: [facility]allin6370 [facility] [id number] Information: [id number] Neutrophils #/vol (Bld) 2.8 {x10E3/uL} Normal 1.8-7.8 [facility] Work Phone: Comment on above: PATIENT WAS FASTINGP ERFORMED BY: [facility] Jhdcwi[address] [id number] Information: [id number] Neutrophils (Bld) [#/Vol] 2.8 10*3/uL Normal 1.8-7.8 [facility]; [facility] Work Phone: Comment on above: PATIENT WAS FASTINGP ERFORMED BY: Janet Vhjqwt0472 [facility] [id number] Information: [id number] Neutrophils/100 WBC (Bld) 54 % Normal 40-74 [facility] Work Phone: Comment on above: PATIENT WAS FASTINGP ERFORMED BY: [facility] Eunuii9777 [facility] [id number] Information: [id number] Platelets #/vol (Bld) 234 {x10E3/uL} Normal 140-415 [facility] Work Phone: Comment on above: PATIENT WAS FASTINGP ERFORMED BY: [place] 6422570 [facility] [id number] Information: [id number] Platelets (Bld) [#/Vol] 234 10*3/uL Normal 140-415 [facility]; [facility] Work Phone: Comment on above: PATIENT WAS FASTINGP ERFORMED BY: [facility]6370 [facility] [id number] Information: [id number] RBC #/vol (Bld) 4.60 {x10E6/uL} Normal 3.80-5.10 Comp rust Internal Medicine Work Phone: Comment on above: PATIENT WAS FASTINGP ERFORMED BY: ROSA MARIA Bell6370 [facility] [id number] Information: [id number] RBC (Bld) [#/Vol] 4.60 10*6/uL Normal 3.80-5.10 [facility] Internal Medicine; [facility] Work Phone: Comment on above: PATIENT WAS FASTINGP ERFORMED BY: ROSA MARIA Gonzales Rfqael7788 [facility] [id number] Information: [id number] WBC #/vol (Bld) 5.2 {x10E3/uL} Normal 4.0-10.5 [facility] Internal Medicine Work Phone: Comment on above: PATIENT WAS FASTINGP ERFORMED BY: ROSA MARIA Gonzales Kyqiul2984 [facility] [id number] Information: [id number] WBC (Bld) [#/Vol] 5.2 10*3/uL Normal 4.0-10.5 [facility]; [facility] Work Phone: Comment on above: PATIENT WAS FASTINGP ERFORMED BY: ROSA MARIA Montgomerylin6370 [facility] [id number] Information: [id number] LIPID PANEL (98174)Ordered B y: Bag Machine Operator on 11-12-2009 Cholesterol in HDL mass conc 80 mg/dL Normal [facility] Work Phone: Comment on above: According to ATP-III Guidelines, HDL-C >59 mg/dL is considered anegative risk factor for CHD. PATIENT WAS FASTINGP ERFORMED BY: ROSA MARIA [facility] Jtpzyk5021 [facility] [id number] Cholesterol in LDL mass conc 103 mg/dL Abnormal 0-99 [facility] Work Phone: Comment on above: PATIENT WAS FASTINGP ERFORMED BY: ROSA MARIA Gonzales Fohqxr5600 [facility] [id number] Cholesterol in LDL/Cholesterol in HDL mass ratio 1.3 {ratio_units} Normal 0.0-3.2 [facility] Work Phone: Comment on above: PATIENT WAS FASTINGP ERFORMED BY: ROSA MARIA LabConettie MontgomeryIjackw8591 Farmer TicketFireSentara Albemarle [facility] [id number] Cholesterol in VLDL mass conc 23 mg/dL Normal 5-40 [facility] Work Phone: Comment on above: PATIENT WAS FASTINGP ERFORMED BY: ROSA MARIA LabConettie MontgomeryIxubcy6779 Farmer TicketFireSentara Albemarle Medical Center [id number] Cholesterol mass conc 206 mg/dL Abnormal 100-199 [facility] prehensive Internal Medicine Work Phone: Comment on above: PATIENT WAS FASTINGP ERFORMED BY: ROSA MARIA LabConettie MontgomeryMkuter5951 Farmer TicketFireSentara Albemarle Medical Center [id number] Triglyceride mass conc 113 mg/dL Normal 0-149 [facility] Work Phone: Comment on above: PATIENT WAS FASTINGP ERFORMED BY: ROSA MARIA LabDianne MontgomeryYkiich8783 [facility] [id number] METABOLIC PANEL, COMPREHENSI VE ([id number])Ordered By: Bag Machine Operator on 11-12-2009 Albumin mass conc 4.6 g/dL Normal 3.6-4.8 Compreh [facility] Internal Medicine Work Phone: Comment on above: PATIENT WAS FASTINGP ERFORMED BY: ROSA MARIA LabJierp Mpwwss8131 Farmer TicketFireFrye Regional Medical Centerin [place] [id number] Albumin/Globulin mass ratio 1.9 {ratio} Normal 1.1-2.5 [facility] Work Phone: Comment on above: PATIENT WAS FASTINGP ERFORMED BY: ROSA MARIA [facility] Kbuvfj1443 [facility] [place] [id number] ALP [Catalytic activity/Vol] 85 U/L Normal 25-165 [facility]; [facility] Work Phone: Comment on above: PATIENT WAS FASTINGP ERFORMED BY: ROSA MARIA [facility] Muvtjx1623 Farmer [facility] [place] [id number] ALP enzyme act/vol 85 [iU]/L Normal 25-165 Compre [facility] Internal Medicine Work Phone: Comment on above: PATIENT WAS FASTINGP ERFORMED BY: ROSA MARIA LabConettie Ygxyvj2047 Farmer RoadDublin [place] [id number] ALT [Catalytic activity/Vol] 37 U/L Normal 0-40 [facility]; [facility] Work Phone: Comment on above: PATIENT WAS FASTINGP ERFORMED BY: ROSA MARIA LabJienettie MontgomeryIwvsvm0058 Farmer RoadDublin [place] [id number] ALT enzyme act/vol 37 [iU]/L Normal 0-40 [facility] Internal Medicine Work Phone: Comment on above: PATIENT WAS FASTINGP ERFORMED BY: ROSA MARIA LabConettie MontgomeryYpoiui8434 Farmer RoadDublin [place] [id number] AST [Catalytic activity/Vol] 37 U/L Normal 0-40 [facility]; [facility] Internal Medicine Work Phone: Comment on above: PATIENT WAS FASTINGP ERFORMED BY: ROSA MARIA Montgomerylin6370 Farmer RoadDublin [place] [id number] AST enzyme act/vol 37 [iU]/L Normal 0-40 [facility] Internal Medicine Work Phone: Comment on above: PATIENT WAS FASTINGP ERFORMED BY: ROSA MARIA Montgomerylin6370 Farmer RoadDublin [place] [id number] Bilirubin mass conc 0.6 mg/dL Normal 0.0-1.2 [facility] Internal Medicine Work Phone: Comment on above: PATIENT WAS FASTINGP ERFORMED BY: ROSA MARIA LabJienettie MontgomeryEutxxa5589 Farmer RoadDublin [place] [id number] Calcium mass conc 9.4 mg/dL Normal 8.6-10.2 [facility] Internal Medicine Work Phone: Comment on above: PATIENT WAS FASTINGP ERFORMED BY: ROSA MARIA LabConettie MontgomeryYwoyxa8055 Farmer RoadDublin [place] [id number] Chloride molar conc 99 mmol/L Normal 97-108 Compr [facility] Internal Medicine Work Phone: Comment on above: PATIENT WAS FASTINGP ERFORMED BY: ROSA MARIA LabConettie MontgomeryGgfjoc0930 Farmer RoadDublin [place] [id number] CO2 molar conc 25 mmol/L Normal 20-32 Comprehens brianne Internal Medicine Work Phone: Comment on above: PATIENT WAS FASTINGP ERFORMED BY: ROSA MARIA [facility]6370 [facility] [id number] Creatinine mass conc 0.81 mg/dL Normal 0.57-1.00 Comp rehensive Internal Medicine Work Phone: Comment on above: PATIENT WAS FASTINGP ERFORMED BY: ROSA MARIA [facility] Ofycjr2838 [facility] [id number] GFR/1.73 sq M predicted among blacks MDRD vol rate/area (S/P/Bld) mL/min/{1.73_m2} Normal Comprehensi Internal Medicine Work Phone: Comment on above: Note: Persistent red uction for 3 months or more in an eGFR<60 mL/min/1.73 m2 defines CKD. Patients with eGFR values>/=60 mL/min/1.73 m2 may also have CKD if evidence of persistentproteinuria is present. Additional information may be found [email or web address].org. PATIENT WAS FASTINGP ERFORMED BY: ROSA MARIA [facility]6370 [facility] [id number] GFR/1.73 sq M.predicted MDRD (S/P/Bld) [Vol rate/Area] mL/min/{1.73_m2} Normal [facility] Work Phone: Comment on above: PATIENT WAS FASTINGP ERFORMED BY: ROSA MARIA [facility]6370 [facility] [id number] GFR/1.73 sq M.predicted MDRD vol rate/area mL/min/{1.73_m2} Normal [facility] Work Phone: Comment on above: PATIENT WAS FASTINGP ERFORMED BY: ROSA MARIA [facility]6370 [facility] [id number] Globulin mass conc (S) 2.4 g/dL Normal 1.5-4.5 [facility] Work Phone: Comment on above: PATIENT WAS FASTINGP ERFORMED BY: CB [facility] Gxppor0886 Farmer RoadDublin [place] [id number] Glucose mass conc 102 mg/dL Abnormal 65-99 Compreh ensive Internal Medicine Work Phone: Comment on above: PATIENT WAS FASTINGP ERFORMED BY: ROSA MARIA [facility] Miwhkr6359 Farmer RoadDublin [place] [id number] Potassium molar conc 4.3 mmol/L Normal 3.5-5.2 Comp rehensive Internal Medicine Work Phone: Comment on above: PATIENT WAS FASTINGP ERFORMED BY: [facility] Mqxugs8804 Farmer RoadDublin [place] [id number] Protein mass conc 7.0 g/dL Normal 6.0-8.5 Compreh ensive Internal Medicine Work Phone: Comment on above: PATIENT WAS FASTINGP ERFORMED BY: ROSA MARIA [facility] Ijrrrk6123 [address] RoadDublin [place] [id number] Sodium molar conc 139 mmol/L Normal 135-145 Compreh ensive Internal Medicine Work Phone: Comment on above: PATIENT WAS FASTINGP ERFORMED BY: [facility] Fxbhrc6402 Farmer RoadDublin [place] [id number] Urea nitrogen mass conc 16 mg/dL Normal 5-26 [facility] Work Phone: Comment on above: PATIENT WAS FASTINGP ERFORMED BY: ROSA MARIA [facility] Bazujr4945 Farmer Roadblin [place] [id number] Urea nitrogen/Creatinine mass ratio 20 mg/mg Normal 8-27 [facility] Work Phone: Comment on above: PATIENT WAS FASTINGP ERFORMED BY: [facility] Xvpfpw1091 Farmer [facility] Hospitalblin [place] [id number] TSH ([id number])Ordered By: Theo Corea on 11-12-2009 Thyrotropin Qn 4.880 {uIU/mL} Abnormal 0.450-4.50 0 [facility] Work Phone: Comment on above: PATIENT WAS FASTINGP ERFORMED BY: [facility] Xvmqof8521 Farmer RoadDublin [place] [id number] CBC With Differential/Platel etOrdered By: Bag Machine Operator on 02-01-2009 Basophils #/vol (Bld) 0.1 {x10E3/uL} Normal 0.0-0.2 [facility] Work Phone: Comment on above: PERFORMED BY: ENEFpro63TopBlip [facility] [id number] Basophils/100 WBC (Bld) 1 % Normal 0-3 [facility] Work Phone: Comment on above: PERFORMED BY: ENEFpro6370 Vertical KnowledgeSentara Albemarle Medical Center [id number] Eosinophils #/vol (Bld) 0.1 {x10E3/uL} Normal 0.0-0.4 [facility] Work Phone: Comment on above: PERFORMED BY: PounceSentara Albemarle Medical Center [id number] Eosinophils/100 WBC (Bld) 2 % Normal 0-7 [facility] Work Phone: Comment on above: PERFORMED BY: JAYS70 [address] [facility] [id number] Erythrocyte distribution width Ratio (RBC) 12.9 % Normal 11.7-15.0 [facility] Work Phone: Comment on above: PERFORMED BY: ENEFpro6370 [address] [facility] [id number] Hematocrit Volume Fraction (Bld) 42.1 % Normal 34.0-44.0 [facility] Work Phone: Comment on above: PERFORMED BY: ENEFpro[address] [place] [address] [id number] Hemoglobin mass conc (Bld) 14.2 g/dL Normal 11.5-15.0 [facility] Work Phone: Comment on above: PERFORMED BY: ENEFpro63Aehr Test SystemsSentara Albemarle Medical Center [id number] Lymphocytes #/vol (Bld) 2.1 {x10E3/uL} Normal 0.7-4.5 [facility] Work Phone: Comment on above: PERFORMED BY: ENEFpro6370 [address] [facility] [id number] Lymphocytes/100 WBC (Bld) 40 % Normal 14-46 [facility] Work Phone: Comment on above: PERFORMED BY: ENEFpro6370 [address] [facility]in [place] [id number] MCH Entitic mass (RBC) 30.5 pg Normal 27.0-34.0 [facility] Work Phone: Comment on above: PERFORMED BY: ENEFpro[address] [facility] [id number] MCHC mass conc (RBC) 33.7 g/dL Normal 32.0-36.0 [facility] Internal Medicine Work Phone: Comment on above: PERFORMED BY: [employer] [facility] [id number] MCV Entitic volume (RBC) 91 fL Normal 80-98 [facility] Work Phone: Comment on above: PERFORMED BY: ENEFpro6370 [facility] [id number] Monocytes #/vol (Bld) 0.3 {x10E3/uL} Normal 0.1-1.0 [facility] Work Phone: Comment on above: PERFORMED BY: ENEFpro6370 [facility] [id number] Monocytes/100 WBC (Bld) 6 % Normal 4-13 [facility] Work Phone: Comment on above: PERFORMED BY: SayNowlin6370 [facility] [id number] Neutrophils #/vol (Bld) 2.7 {x10E3/uL} Normal 1.8-7.8 [facility] Work Phone: Comment on above: PERFORMED BY: SayNowlin6[address] [facility] [id number] Neutrophils/100 WBC (Bld) 51 % Normal 40-74 [facility] Work Phone: Comment on above: PERFORMED BY: JAYS70 [facility] [id number] Platelets #/vol (Bld) 198 {x10E3/uL} Normal 140-415 [facility] Work Phone: Comment on above: PERFORMED BY: SayNowlin6370 [facility] [id number] RBC #/vol (Bld) 4.66 {x10E6/uL} Normal 3.80-5.10 Comp [facility] hospitalensive Internal [facility] Work Phone: Comment on above: PERFORMED BY: SayNow[address] [id number] WBC #/vol (Bld) 5.2 {x10E3/uL} Normal 4.0-10.5 Compr ensive Internal Medicine Work Phone: Comment on above: PERFORMED BY: SayNow[address] [id number] Comp. Metabolic Panel (14)Or dered By: Bag Machine Operator on 02-01-2009 Albumin mass conc 4.5 g/dL Normal 3.6-4.8 [facility] Internal Medicine Work Phone: Comment on above: PERFORMED BY: SayNow[address] [id number] Albumin/Globulin mass ratio 1.7 {ratio} Normal 1.1-2.5 [facility] Internal Medicine Work Phone: Comment on above: PERFORMED BY: SayNowlin6370 [facility] [id number] ALP enzyme act/vol 81 [iU]/L Normal 25-165 [facility]pr[facility]ult[facility] Internal [facility] Work Phone: Comment on above: PERFORMED BY: SayNowlin6370 [facility] [id number] ALT enzyme act/vol 31 [iU]/L Normal 0-40 [facility] Internal Medicine Work Phone: Comment on above: PERFORMED BY: SayNowlin6370 [facility] [id number] AST enzyme act/vol 31 [iU]/L Normal 0-40 Compre hensive Internal Medicine Work Phone: Comment on above: PERFORMED BY: [employer] Dianne Mgjeib0958 Synchronicity.coFormerly [facility] [id number] Bilirubin mass conc 0.7 mg/dL Normal 0.1-1.2 [facility] Centerensive Internal Medicine Work Phone: Comment on above: PERFORMED BY: Lalina Lab Dianne Cqdcib5252 Synchronicity.coFormerly [facility] [id number] Calcium mass conc 9.8 mg/dL Normal 8.5-10.6 Compreh ensive Internal Medicine Work Phone: Comment on above: PERFORMED BY: ENEFpro6370 Synchronicity.coFormerly [facility] [id number] Chloride molar conc 100 mmol/L Normal 97-108 Compr ensive Internal Medicine Work Phone: Comment on above: PERFORMED BY: ENEFpro6370 Synchronicity.coFormerly [facility] [id number] CO2 molar conc 23 mmol/L Normal 20-32 Comprehens brianne Internal Medicine Work Phone: Comment on above: PERFORMED BY: ENEFpro6370 Synchronicity.coFormerly [facility] [id number] Creatinine mass conc 0.90 mg/dL Normal 0.57-1.00 [facility] Work Phone: Comment on above: PERFORMED BY: ENEFpro6370 Synchronicity.coFormerly [facility] [id number] GFR/1.73 sq M predicted among blacks MDRD vol rate/area (S/P/Bld) mL/min/{1.73_m2} Normal Comprehensi ve Internal Medicine Work Phone: Comment on above: Note: Persistent red uction for 3 months or more in an eGFR<60 mL/min/1.73 m2 defines CKD. Patients with eGFR values>/=60 mL/min/1.73 m2 may also have CKD if evidence of persistentproteinuria is present. Additional information may be found atwww.kdoqi.org. PERFORMED BY: JAYS70 Synchronicity.coFormerly [facility] [id number] GFR/1.73 sq M.predicted MDRD vol rate/area mL/min/{1.73_m2} Normal [facility] Work Phone: Comment on above: PERFORMED BY: ENEFpro6370 [facility] [id number] Globulin mass conc (S) 2.6 g/dL Normal 1.5-4.5 [facility] Work Phone: Comment on above: PERFORMED BY: ENEFpro[address] [place] [address] [id number] Glucose mass conc 98 mg/dL Normal 65-99 Compreh ensive Internal Medicine Work Phone: Comment on above: PERFORMED BY: JAYS[address] [place] [address] [id number] Potassium molar conc 4.6 mmol/L Normal 3.5-5.2 Comp rehensive Internal Medicine Work Phone: Comment on above: PERFORMED BY: ENEFpro6370 [facility] [id number] Protein mass conc 7.1 g/dL Normal 6.0-8.5 Compreh ensive Internal Medicine Work Phone: Comment on above: PERFORMED BY: SayNowlin[address] [place] [address] [id number] Sodium molar conc 139 mmol/L Normal 135-145 Compreh ensive Internal Medicine Work Phone: Comment on above: PERFORMED BY: ENEFpro6370 [facility] [id number] Urea nitrogen mass conc 20 mg/dL Normal 5-26 [facility] Work Phone: Comment on above: PERFORMED BY: SayNow[address] [id number] Urea nitrogen/Creatinine mass ratio 22 mg/mg Normal 8-27 [facility] Work Phone: Comment on above: PERFORMED BY: SayNow[address] [id number] Ferritin, SerumOrdered By: S ystem Certified Social Workers In Health Care on 02-01-2009 Ferritin mass conc 30 ng/mL Normal 10-291 [facility] Internal Medicine Work Phone: Comment on above: PERFORMED BY: AcornsFormerly [facility] [id number] Hepatic Function Panel (7)Or dered By: Bag Machine Operator on 02-01-2009 Bilirubin.direct mass conc 0.20 mg/dL Normal 0.00-0.40 [facility] Internal Medicine Work Phone: Comment on above: PERFORMED BY: AcornsFormerly [facility] [id number] Hepatitis Panel (4)Ordered B y: Bag Machine Operator on 02-01-2009 HAV IgM IA Ql Negative Normal Comprehenskessler institute for rehabilitation Internal Medicine Work Phone: Comment on above: PERFORMED BY: AcornsFormerly [facility] [id number] HBV core IgM IA Ql Negative Normal [facility] Internal Medicine Work Phone: Comment on above: PERFORMED BY: AcornsFormerly [facility] [id number] HBV surface Ag IA Ql Negative Normal [facility] Internal Medicine Work Phone: Comment on above: PERFORMED BY: AcornsFormerly [facility] [id number] Hepatitis Panel (4) <0.1 Normal 0.0-0.9 [facility] Internal Medicine Work Phone: Comment on above: Negative: < 0.8 Inde terminate 0.8 - 0.9 Positive: > 0.9 . In order to reduce the incidence of a false positive result, the CDC recommends that all s/co ratios between 1.0 and 10.9 be confirmed with additional RIBA or PCR testing. PERFORMED BY: AcornsFormerly [facility] [id number] Lipid Panel With LDL/HDL Rat ioOrdered By: Bag Machine Operator on 02-01-2009 Cholesterol in HDL mass conc 82 mg/dL Normal [facility] Work Phone: Comment on above: According to ATP-III Guidelines, HDL-C >59 mg/dL is considered anegative risk factor for CHD. PERFORMED BY: [employer] Uplpqm7086 [address] vendome 1699bl[place] [id number] Cholesterol in LDL mass conc 105 mg/dL Abnormal 0-99 [facility] Work Phone: Comment on above: PERFORMED BY: Lalina Lab [employer] Lkzihn3025 [address] vendome 16[address] [id number] Cholesterol in LDL/Cholesterol in HDL mass ratio 1.3 {ratio_units} Normal 0.0-3.2 [facility] Work Phone: Comment on above: PERFORMED BY: ENEFpro6370 Synchronicity.[place] [id number] Cholesterol in VLDL mass conc 17 mg/dL Normal 5-40 [facility] Work Phone: Comment on above: PERFORMED BY: ENEFpro6370 Synch[employer].coin [place] [id number] Cholesterol mass conc 204 mg/dL Abnormal 100-199 [facility] prehensive Internal Medicine Work Phone: Comment on above: PERFORMED BY: SayNowlin6370 Synchronicity.coin [place] [id number] Triglyceride mass conc 87 mg/dL Normal 0-149 [facility] Work Phone: Comment on above: PERFORMED BY: SayNowlin6370 Synchronicity.coin [place] [id number] UNILAT LT DIAG DIGITAL & CAD Ordered By: Bag Machine Operator on 10-25-2008 UNILAT LT DIAG DIGITAL & CAD See Note Normal [facility] Work Phone: Comment on above: Exam Number: [id number] MAMMOGRAM, UNILATERAL LEFT DIAGNOSTIC DIGITAL AND CAD HISTORYNew density. Full field digital images of the left breast were obtained in truelateral and spot mediolateral oblique views. CAD images were reviewed. The current study is compared to the examinations of July 23, 2005 andOctober 11, 2008. The area of apparent new density seen in the upper left breast has adifferent configuration in the true lateral than in the mediolateraloblique projection and is not definitely seen in the spot compressionview. This density, therefore, is most likely to represent normalparenchyma. If there is no suspicious palpable abnormality, left6-month followup mammogram is recommended for further evaluation. IMPRESSIONThe area of density seen in the upper left breast October 11, 2008, islikely to represent superimposition. Left 6-month followup mammogramis recommended. FINAL ASSESSMENTProbably benign. BIRADS Category 3. A letter regarding these results has been sent to the patient. This interpretation was rendered by a radiologist certified under theMammography Quality Standards Act of 1992 (MQSA). The mammograms werealso examined with computer-aided detection software (Cool Lumens, FasterPants.). Reported By: ABILIO DONNELLY M.D. BILAT SCRN DIGITAL & CADOrde red By: Bag Machine Operator on 10-11-2008 BILAT SCRN DIGITAL & CAD See Note Normal [facility] Work Phone: Comment on above: Exam Number: [id number] MAMMOGRAM, BILATERAL SCREENING DIGITAL AND CAD HISTORYRoutine screening. Full field digital images were obtained in mediolateral oblique andcraniocaudal projections. CAD images were reviewed. The current study is compared to the examinations of September 16, 2002,and July 23, 2005. from [facility]. There is moderately dense fibroglandular parenchyma present. There isno skin thickening or retraction, architectural distortion, or clusterof suspicious microcalcifications. There is an area of asymmetricparenchymal density in the upper left breast. This is not identifiedwith certainty on the previous examinations. Therefore, left truelateral and spot mediolateral oblique views are recommended. IMPRESSIONNew density in the upper left breast. Additional views arerecommended. FINAL ASSESSMENTBIRADS Category 0 - Incomplete; need additional imaging evaluation. A letter regarding these results has been sent to the patient. This interpretation was rendered by a radiologist certified under theMammography Quality Standards Act of 1992 (MQSA). The mammograms werealso examined with computer-aided detection software (Cool Lumens, FasterPants.). Reported By: ABILIO DONNELLY M.D. Methylmalonic Acid, SerumOrd ered By: Bag Machine Operator on 08-28-2008 Methylmalonate Ql (U) 235 nmol/L Normal 73-376 Com prehensive Internal Medicine Work Phone: Comment on above: The reference range for methylmalonic acid has been set at +3sd abovethe mean for healthy blood bank donors. In the clinical assessment ofpatients with megaloblastic anemias a cutoff of +3sd provides greaterspecificity in the diagnosis of the vitamin deficiency states,despite the sacrifice of some sensitivity. PERFORMED BY: ENEFpro6370 Quintiq [place] [id number] Vitamin V24Cqxrznt By: Theo m Certified [employer] Workers In Health Care on 08-28-2008 Cobalamin (Vitamin B12) mass conc 607 pg/mL Normal 211-911 [facility] Work Phone: Comment on above: PERFORMED BY: [employer] MD [id number] C difficile Toxins A+B, EIAO rdered By: Bag Machine Operator on 08-09-2008 C. difficile toxin A+B IA Ql (St) Negative Normal [facility] Work Phone: Comment on above: PERFORMED BY: [employer] MD [id number] ColoSure(TM)Ordered By: [employer] hugo Certified Social Workers In Health Care on 08-09-2008 ColoSure(TM) PGPDNA Normal Comprehensiv e Internal Medicine Work Phone: Comment on above: DNA extraction is co mplete. Specimen has been forwarded to [facility] for PCR analysis. PERFORMED BY: [employer] [id number] [facility] [id number] Occult Blood, Stool, GuaiacO rdered By: Bag Machine Operator on 08-09-2008 Occult Blood, Stool, Guaiac Negative Normal [facility] Work Phone: Comment on above: PERFORMED BY: SayNowlin6370 Blue Mammoth GamesSaint Elizabeth Hebron [id number] Ova + Parasite ExamOrdered B y: Bag Machine Operator on 08-09-2008 Ova and parasites identified Concentration Nom (St) NOCP Normal [facility] Work Phone: Comment on above: No ova, cysts, or pa rasites seen. PERFORMED BY: JAYS70 Quintiq [place] [id number] Ova and parasites identified LM Nom (Unsp spec) Final report Normal [facility] Work Phone: Comment on above: These results were o btained using wet preparation(s) and trichromestained smear. This test does not include testing for Cryptosporidiumparvum, Cyclospora, or Microsporidia. PERFORMED BY: JAYS70 Synchronicity.coFormerly [facility] [id number] Stool CultureOrdered By: Steve tem Certified Social Workers In Health Care on 08-09-2008 Bacteria identified Cx Nom (Unsp spec) NSS Normal [facility] Work Phone: Comment on above: No Salmonella or Meli gella recovered. Clinical Information : SRC:ST PERFORMED BY: CustomerXPs SoftwareFormerly [facility] [id number] Bacteria identified Cx Nom (Unsp spec) NCI Normal [facility] Work Phone: Comment on above: No Campylobacter spe cies isolated. Clinical Information : SRC:ST PERFORMED BY: [employer] SoftwareFormer[facility] [id number] Campylobacter sp identified Org specific cx Nom (St) Final report Normal Comprehensi ve Internal Medicine Work Phone: Comment on above: Clinical Information : SRC:ST PERFORMED BY: [employer] SoftwareFormer[employer] [facility] [id number] E. coli shiga-like toxin IA Ql (St) Negative Normal [facility] Work Phone: Comment on above: Clinical Information : SRC:ST PERFORMED BY: [email or web address] [id number] Salmonella and Shigella sp identified Org specific cx Nom (St) Final report Normal Comprehensi ve Internal Medicine Work Phone: Comment on above: Clinical Information : SRC:ST PERFORMED BY: [employer] SoftwareFormer[facility] [id number] Vimentin MethylationOrdered By: Bag Machine Operator on 08-09-2008 Vimentin Methylation COLNEG Normal Comp rehensive Internal Medicine Work Phone: Comment on above: Negative .Interpreta tion: .Methylation of exon-1 sequences in the nontranscribed region of thevimentin gene has recently been identified as a novel biomarkerassociated with colorectal cancer. Methylation of CpG-rich genesequences are epigenetic changes that are commonly associated withhuman cancers. Recent publications on studies in patients known to haveinvasive colorectal cancer show that ColoSure(TM) (a single marker,stool-based DNA test) provides a sensitivity range of 72% to 77% yuridia specificity range of 83% to 94%. This test should not be used forsymptomatic patients who may require more invasive follow-up. Thedetection rates for general population screening have not beendetermined. .Current guidelines emphasize routine screening beginning at age 50.In addition to the stool DNA assay (ColoSure(TM) is a stool DNAassay), guideline screening options include guaiac-based stool bloodtesting and immunochemical based stool blood testing as tests thatprimarily detect cancer; and invasive structural exam tests such ascolonoscopy (the gold standard), computed tomographic colonography,double-contrast barium enema and flexible sigmoidoscopy as tests thatdetect adenomatous polyps and cancer. Tests that are designed todetect adenomatous polyps and cancer (colonoscopy, etc.) should beencouraged to patients. ColoSure(TM) can be a useful alternative forasymptomatic patients who are at average risk for developingcolorectal cancer and who are unwilling or unable to undergo acolonoscopy. ColoSure(TM) may also be used to supplement othermethods, depending upon the specific needs of a patient, taking intoaccount that person's risk factors and adherence to screening.Ultimately, the patient's willingness to comply with a colorectalcancer screening program, the overall medical condition of thepatient, and the performance characteristics of ColoSure(TM) shouldall be considered in making a decision regarding the most appropriateoverall screening program for an individual.Human DNA is captured from stool homogenate and analyzed formethylation of exon-1 of the vimentin gene using bisulfite conversionand methylation specific PCR. Results are visualized by gelelectrophoresis. Molecular-based testing is highly accurate, but as inany laboratory test, rare diagnostic errors may occur.1. Aniya CALVIN, Sania L, Eduin R. et al. Improved Fecal DNA Test for Colorectal Cancer Screening. Clin Gastroenterol Hepatol. 2007 Feb; 5(1):111-117.2. Meliton Chapman, Oumou CANCINO, Avery Chapman. et al. Screening and Surveillance for the Early Detection of Colorectal Cancer and Adenomatous Polyps, 2008: A Joint Guideline from the [place] [employer], the [place] Multi-Society Task Force on Colorectal Cancer, and the [place] [employer]. [place] Cancer J Clin. 2008; June-Jul; 58(3):130-160.Chaya Tavares, PhD, [facility] Director, Molecular Genetics [facility], [place] . PERFORMED BY: [employer] [id number] [employer] [facility] [id number] White Blood Cells (WBC), Sto olOrdered By: Bag Machine Operator on 08-09-2008 WBC LM Ql (St) Final report Normal Comprehe nsive Internal Medicine Work Phone: Comment on above: Reference Range: Non e Seen PERFORMED BY: [employer] [id number] Quintiq [place] [id number] WBC LM Ql (St) WCF Normal Comprehens brianne Internal Medicine Work Phone: Comment on above: Few white blood cell s. PERFORMED BY: [employer] Csqnvc1968 Quintiq [place] [id number] CALCIFIDIOL (84764) VIT D 25 Ordered By: Pita Paul on 04-24-2008 Calcitriol mass conc 33.9 ng/mL Normal 32.0-100.0 Comp rehensive Internal Medicine Work Phone: Comment on above: Recent studies consi alena the lower limit of 32.0 ng/mL to be athreshold for optimal health.Jose GOMEZ. J Nutr. 2004;135(2):317-22. PATIENT NOT FASTINGP ERFORMED BY: 248 [employer]1447 [facility] [id number] CBC WITH MANUAL DIFF (88267) Ordered By: Pita Paul on 04-24-2008 Basophils #/vol (Bld) 0.1 {x10E3/uL} Normal 0.0-0.2 [facility] Work Phone: Comment on above: PATIENT NOT FASTINGC linical Information: ADD DRAW FEE [id number] ADD J 45468 PERFORMED BY: BN [facility] [address] [id number] Basophils (Bld) [#/Vol] 0.1 10*3/uL Normal 0.0-0.2 [facility]; [facility] Work Phone: Comment on above: PATIENT NOT FASTINGC linical Information: ADD DRAW FEE 604339 ADD J 10052 PERFORMED BY: [employer] [id number] Basophils/100 WBC (Bld) 1 % Normal 0-3 [facility] Work Phone: Comment on above: PATIENT NOT FASTINGC linical Information: ADD DRAW FEE [id number] ADD J 37582 PERFORMED BY: [employer] [id number] Eosinophils #/vol (Bld) 0.1 {x10E3/uL} Normal 0.0-0.4 [facility] Work Phone: Comment on above: PATIENT NOT FASTINGC linical Information: ADD DRAW FEE 889179 ADD J 38433 PERFORMED BY: [employer] [id number] Eosinophils (Bld) [#/Vol] 0.1 10*3/uL Normal 0.0-0.4 [facility]; [facility] Work Phone: Comment on above: PATIENT NOT FASTINGC linical Information: ADD DRAW FEE 151665 ADD J 59997 PERFORMED BY: [employer] [id number] Eosinophils/100 WBC (Bld) 1 % Normal 0-7 [facility] Work Phone: Comment on above: PATIENT NOT FASTINGC linical Information: ADD DRAW FEE 620265 ADD J 67191 PERFORMED BY: [employer] [id number] Erythrocyte distribution width Ratio (RBC) 13.4 % Normal 11.7-15.0 [facility] Work Phone: Comment on above: PATIENT NOT FASTINGC linical Information: ADD DRAW FEE 352591 ADD J 88636 PERFORMED BY: [facility] [address] [id number] Hematocrit Volume Fraction (Bld) 38.7 % Normal 34.0-44.0 [facility] Work Phone: Comment on above: PATIENT NOT FASTINGC linical Information: ADD DRAW FEE 912516 ADD J 52697 PERFORMED BY: [employer] [id number] Hemoglobin mass conc (Bld) 13.4 g/dL Normal 11.5-15.0 [facility] Work Phone: Comment on above: PATIENT NOT FASTINGC linical Information: ADD DRAW FEE [id number] ADD J 68742 PERFORMED BY: [employer] [address] [id number] Lymphocytes #/vol (Bld) 2.1 {x10E3/uL} Normal 0.7-4.5 [facility] Work Phone: Comment on above: PATIENT NOT FASTINGC linical Information: ADD DRAW FEE [id number] ADD J 69776 PERFORMED BY: [employer] [id number] Lymphocytes (Bld) [#/Vol] 2.1 10*3/uL Normal 0.7-4.5 [facility]; [facility] Work Phone: Comment on above: PATIENT NOT FASTINGC linical Information: ADD DRAW FEE 825780 ADD J 76089 PERFORMED BY: [employer] [id number] Lymphocytes/100 WBC (Bld) 33 % Normal 14-46 [facility] Work Phone: Comment on above: PATIENT NOT FASTINGC linical Information: ADD DRAW FEE 763438 ADD J 70532 PERFORMED BY: [employer] [address] [id number] MCH Entitic mass (RBC) 30.2 pg Normal 27.0-34.0 [facility] Work Phone: Comment on above: PATIENT NOT FASTINGC linical Information: ADD DRAW FEE 384507 ADD J 35985 PERFORMED BY: BN [address] [id number] MCHC mass conc (RBC) 34.8 g/dL Normal 32.0-36.0 [facility] Internal Medicine Work Phone: Comment on above: PATIENT NOT FASTINGC linical Information: ADD DRAW FEE 761198 ADD J 93041 PERFORMED BY: [employer] [id number] MCV Entitic volume (RBC) 87 fL Normal 80-98 [facility] Work Phone: Comment on above: PATIENT NOT FASTINGC linical Information: ADD DRAW FEE [id number] ADD J 87494 PERFORMED BY: [employer] [id number] Monocytes #/vol (Bld) 0.6 {x10E3/uL} Normal 0.1-1.0 [facility] Work Phone: Comment on above: PATIENT NOT FASTINGC linical Information: ADD DRAW FEE [id number] ADD J 96515 PERFORMED BY: [employer] [id number] Monocytes (Bld) [#/Vol] 0.6 10*3/uL Normal 0.1-1.0 [facility]; [facility] Work Phone: Comment on above: PATIENT NOT FASTINGC linical Information: ADD DRAW FEE 267350 ADD J 55573 PERFORMED BY: [employer] [id number] Monocytes/100 WBC (Bld) 9 % Normal 4-13 [facility] Work Phone: Comment on above: PATIENT NOT FASTINGC linical Information: ADD DRAW FEE 529361 ADD J 53208 PERFORMED BY: [employer] [id number] Neutrophils #/vol (Bld) 3.5 {x10E3/uL} Normal 1.8-7.8 [facility] Work Phone: Comment on above: PATIENT NOT FASTINGC linical Information: ADD DRAW FEE 785011 ADD J 28609 PERFORMED BY: [employer] [id number] Neutrophils (Bld) [#/Vol] 3.5 10*3/uL Normal 1.8-7.8 [facility]; [facility] Work Phone: Comment on above: PATIENT NOT FASTINGC linical Information: ADD DRAW FEE 454903 ADD J 03010 PERFORMED BY: [address] [id number] Neutrophils/100 WBC (Bld) 56 % Normal 40-74 [facility] Work Phone: Comment on above: PATIENT NOT FASTINGC linical Information: ADD DRAW FEE 773104 ADD J 73157 PERFORMED BY: [address] [id number] Platelets #/vol (Bld) 232 {x10E3/uL} Normal 140-415 [facility] Work Phone: Comment on above: PATIENT NOT FASTINGC linical Information: ADD DRAW FEE 618012 ADD J 13419 PERFORMED BY: [employer] [id number] Platelets (Bld) [#/Vol] 232 10*3/uL Normal 140-415 [facility]; [facility] Internal Medicine Work Phone: Comment on above: PATIENT NOT FASTINGC linical Information: ADD DRAW FEE 263242 ADD J 06903 PERFORMED BY: [employer] [id number] RBC #/vol (Bld) 4.45 {x10E6/uL} Normal 3.80-5.10 [facility] Internal Medicine Work Phone: Comment on above: PATIENT NOT FASTINGC linical Information: ADD DRAW FEE [id number] ADD J 35077 PERFORMED BY: [employer] [id number] RBC (Bld) [#/Vol] 4.45 10*6/uL Normal 3.80-5.10 [facility] Internal Medicine; [facility] Internal Medicine Work Phone: Comment on above: PATIENT NOT FASTINGC linical Information: ADD DRAW FEE [id number] ADD J 41963 PERFORMED BY: [employer] [address] [id number] WBC #/vol (Bld) 6.3 {x10E3/uL} Normal 4.0-10.5 Compr ensive Internal Medicine Work Phone: Comment on above: PATIENT NOT FASTINGC linical Information: ADD DRAW FEE [id number] ADD J 61146 PERFORMED BY: [employer] [id number] WBC (Bld) [#/Vol] 6.3 10*3/uL Normal 4.0-10.5 [facility]pre [facility]; [facility] Work Phone: Comment on above: PATIENT NOT FASTINGC linical Information: ADD DRAW FEE 070024 ADD J 32919 PERFORMED BY: [employer] [id number] METABOLIC PANEL, COMPREHENSI VE (06236)Ordered By: Pita Paul on 04-24-2008 Albumin mass conc 4.5 g/dL Normal 3.6-4.8 Compreh [facility] Internal Medicine Work Phone: Comment on above: PATIENT NOT FASTINGP ERFORMED BY: [employer] [id number] Albumin/Globulin mass ratio 1.7 {ratio} Normal 1.1-2.5 [facility] Internal Medicine Work Phone: Comment on above: PATIENT NOT FASTINGP ERFORMED BY: [employer] [id number] ALP [Catalytic activity/Vol] 93 U/L Normal 25-165 [facility]; [facility] Work Phone: Comment on above: PATIENT NOT FASTINGP ERFORMED BY: [employer] [id number] ALP enzyme act/vol 93 [iU]/L Normal 25-165 [facility]pre [facility] Work Phone: Comment on above: PATIENT NOT FASTINGP ERFORMED BY: [employer] [id number] ALT [Catalytic activity/Vol] 42 U/L Abnormal 0-40 [facility]; [facility] Work Phone: Comment on above: PATIENT NOT FASTINGP ERFORMED BY: [facility] [id number] ALT enzyme act/vol 42 [iU]/L Abnormal 0-40 [facility] Work Phone: Comment on above: PATIENT NOT FASTINGP ERFORMED BY: [facility] [id number] AST [Catalytic activity/Vol] 38 U/L Normal 0-40 [facility]; [facility] Work Phone: Comment on above: PATIENT NOT FASTINGP ERFORMED BY: [address] [id number] AST enzyme act/vol 38 [iU]/L Normal 0-40 [facility]pre [facility] Work Phone: Comment on above: PATIENT NOT FASTINGP ERFORMED BY: [address] [id number] Bilirubin mass conc 0.4 mg/dL Normal 0.1-1.2 Compr ehensive Internal Medicine Work Phone: Comment on above: PATIENT NOT FASTINGP ERFORMED BY: [address] [id number] Calcium mass conc 9.4 mg/dL Normal 8.5-10.6 Compreh ensive Internal Medicine Work Phone: Comment on above: PATIENT NOT FASTINGP ERFORMED BY: [address] [id number] Chloride molar conc 101 mmol/L Normal 97-108 Compr ehensive Internal Medicine Work Phone: Comment on above: PATIENT NOT FASTINGP ERFORMED BY: [facility] [id number] CO2 molar conc 28 mmol/L Normal 20-32 Comprehens brianne Internal Medicine Work Phone: Comment on above: PATIENT NOT FASTINGP ERFORMED BY: BN [facility] Qciwmfobcy2834 [facility] [id number] Creatinine mass conc 0.75 mg/dL Normal 0.57-1.00 Comp rehensive Internal Medicine Work Phone: Comment on above: PATIENT NOT FASTINGP ERFORMED BY: BN [facility] [address] [id number] GFR/1.73 sq M predicted among blacks MDRD vol rate/area (S/P/Bld) mL/min/{1.73_m2} Normal Comprehensi Internal Medicine Work Phone: Comment on above: Note: Persistent red uction for 3 months or more in an eGFR<60 mL/min/1.73 m2 defines CKD. Patients with eGFR values>/=60 mL/min/1.73 m2 may also have CKD if evidence of persistentproteinuria is present. Additional information may be found [email or web address]. PATIENT NOT FASTINGP ERFORMED BY: BN [facility] [address] [id number] GFR/1.73 sq M.predicted MDRD (S/P/Bld) [Vol rate/Area] mL/min/{1.73_m2} Normal [facility] Work Phone: Comment on above: PATIENT NOT FASTINGP ERFORMED BY: [facility] [address] [id number] GFR/1.73 sq M.predicted MDRD vol rate/area mL/min/{1.73_m2} Normal [facility] Work Phone: Comment on above: PATIENT NOT FASTINGP ERFORMED BY: BN [facility] [address]qun[address] [id number] Globulin mass conc (S) 2.7 g/dL Normal 1.5-4.5 [facility] Work Phone: Comment on above: PATIENT NOT FASTINGP ERFORMED BY: BN [facility] [address] [id number] Glucose mass conc 94 mg/dL Normal 65-99 Compreh ensive Internal Medicine Work Phone: Comment on above: PATIENT NOT FASTINGP ERFORMED BY: [facility] [address] [id number] Potassium molar conc 4.2 mmol/L Normal 3.5-5.2 Comp rehensive Internal Medicine Work Phone: Comment on above: PATIENT NOT FASTINGP ERFORMED BY: [facility] [address] [id number] Protein mass conc 7.2 g/dL Normal 6.0-8.5 Compreh ensive Internal Medicine Work Phone: Comment on above: PATIENT NOT FASTINGP ERFORMED BY: [facility] Iq[address] [id number] Sodium molar conc 141 mmol/L Normal 135-145 Compreh ensive Internal Medicine Work Phone: Comment on above: PATIENT NOT FASTINGP ERFORMED BY: [facility] [address] [id number] Urea nitrogen mass conc 15 mg/dL Normal 5-26 [facility] Work Phone: Comment on above: PATIENT NOT FASTINGP ERFORMED BY: [facility] [address] [id number] Urea nitrogen/Creatinine mass ratio 20 mg/mg Normal 8-27 [facility] Work Phone: Comment on above: PATIENT NOT FASTINGP ERFORMED BY: [facility] Lap[address] [id number] Magnesium (47081)Ordered By: Pita Paul on 04-24-2008 Magnesium mass conc 2.2 mg/dL Normal 1.6-2.6 Compr ensive Internal Medicine Work Phone: Comment on above: PATIENT NOT FASTINGP ERFORMED BY: [facility] [address] [id number] Methylmalonic acid, serum 83 921Ordered By: Pita Paul on 04-24-2008 Methylmalonate Ql (U) 235 nmol/L Normal 73-376 [facility] prehensive Internal Medicine Work Phone: Comment on above: The reference range for methylmalonic acid has been set at +3sd abovethe mean for healthy blood bank donors. In the clinical assessment ofpatients with megaloblastic anemias a cutoff of +3sd provides greaterspecificity in the diagnosis of the vitamin deficiency states,despite the sacrifice of some sensitivity. PATIENT NOT FASTINGP ERFORMED BY: [employer]1447 [facility] [id number] TSH ([id number])Ordered By: Pita Paul on 04-24-2008 Thyrotropin Qn 2.733 {uIU/mL} Normal 0.450-4.50 0 [facility] Work Phone: Comment on above: PATIENT NOT FASTINGP ERFORMED BY: [employer] Rpcyysbzpd9988 [facility] [id number] Vitamin B-12 (cyanocobalamin ) (50284)Ordered By: Pita Paul on 04-24-2008 Cobalamin (Vitamin B12) mass conc 471 pg/mL Normal 211-911 [facility] Work Phone: Comment on above: PATIENT NOT FASTINGP ERFORMED BY: [facility] Bdtcfivajh1988 [facility] [id number] Vital Signs Date Time Vital Sign Value Performing Clinician Facility 10-31-2024 13:12-0400 Body mass index (BMI) [Ratio] 18.91 kg/m2 Lissette Curiel MD Work Phone: [facility] 10-31-2024 13:12-040 Body weight 46.9 kg Lissette Curiel MD Work Phone: [facility] 10-31-2024 13:12-0400 Diastolic blood pressure 75 mm[Hg] Lissette Curiel MD Work Phone: [facility] 10-31-2024 13:12-0400 Heart rate 82 /min Lissette Curiel MD Work Phone: [facility] 10-31-2024 13:12-0400 SaO2% (BldA) [Mass fraction] 100 % Lissette Curiel MD Work Phone: [facility] 10-31-2024 13:12-0400 Systolic blood pressure 187 mm[Hg] Lissette Curiel MD Work Phone: [facility] 10-12-2024 14:51-0400 Body temperature 97.7 [degF] Dr. Cira Ku DO Work Phone: [facility] 10-12-2024 14:51-0400 Diastolic blood pressure 82 mm[Hg] Dr. Cira Ku DO Work Phone: [facility] 10-12-2024 14:51-0400 Heart rate 87 /min Dr. Cira Ku DO Work Phone: [facility] 10-12-2024 14:51-0400 Respiratory rate 17 /min Dr. Cira Ku DO Work Phone: [facility] 10-12-2024 14:51-0400 SaO2% (BldA) [Mass fraction] 100 % Dr. Cira Ku DO Work Phone: [facility] 10-12-2024 14:51-0400 Systolic blood pressure 119 mm[Hg] Dr. Cira Ku DO Work Phone: [facility] 10-11-2024 15:05-0400 Body height 157.[address] Cira Ku DO Work Phone: [facility] 10-11-2024 15:05-0400 Body mass index (BMI) [Ratio] 18.4 kg/m2 Dr. Cira Ku DO Work Phone: [facility] 10-11-2024 15:05-0400 Body weight 45.[address] Cira Ku DO Work Phone: [facility] 10-11-2024 14:12-0400 Body temperature 98.1 [degF] Dr. Cira Ku DO Work Phone: [facility] 10-11-2024 14:12-0400 Diastolic blood pressure 70 mm[Hg] Dr. Cira Ku DO Work Phone: [facility] 10-11-2024 14:12-0400 Heart rate 94 /min Dr. Cira Ku DO Work Phone: [facility] 10-11-2024 14:12-0400 Respiratory rate 18 /min Dr. Cira Ku DO Work Phone: [facility] 10-11-2024 14:12-0400 SaO2% (BldA) [Mass fraction] 100 % Dr. Cira Ku DO Work Phone: [facility] 10-11-2024 14:12-0400 Systolic blood pressure 155 mm[Hg] Dr. Cira Ku DO Work Phone: [facility] 10-11-2024 11:35-0400 Body mass index (BMI) [Ratio] 18.4 kg/m2 Dr. Cira Ku DO Work Phone: [facility] 10-11-2024 11:35-0400 Body weight 45.[address] Cira Ku DO Work Phone: [facility] 10-11-2024 10:55-0400 Body height 157.[address] Cira Ku DO Work Phone: [facility] 01-11-2024 12:14-0500 Diastolic blood pressure 74 mm[Hg] Lissette Curiel MD Work Phone: [facility] 01-11-2024 12:14-0500 Systolic blood pressure 128 mm[Hg] Lissette Curiel MD Work Phone: [facility] 01-11-2024 11:10-0500 Body mass index (BMI) [Ratio] 18.84 kg/m2 Lissette Curiel MD Work Phone: [facility] 01-11-2024 11:10-0500 Body weight 46.72 kg Lissette Curiel MD Work Phone: [facility] 01-11-2024 11:10-0500 Heart rate 85 /min Lissette Curiel MD Work Phone: [facility] 01-11-2024 11:10-0500 SaO2% (BldA) [Mass fraction] 100 % Lissette Curiel MD Work Phone: [facility] 08-06-2023 09:00-0400 Body height 157.5 cm Tamiko Graf MD Work Phone: [facility] 08-06-2023 09:00-0400 Body mass index (BMI) [Ratio] 18.07 kg/m2 Tamiko Graf MD Work Phone: [facility] 08-06-2023 09:00-0400 Body weight 44.81 kg Tamiko Graf MD Work Phone: [facility] 08-06-2023 09:00-0400 Diastolic blood pressure 70 mm[Hg] Tamiko Graf MD Work Phone: [facility] 08-06-2023 09:00-0400 Systolic blood pressure 126 mm[Hg] Tamiko Graf MD Work Phone: [facility] 01-12-2023 14:34-0500 Body weight 46.45 kg Lissette Curiel MD Work Phone: [facility] 01-12-2023 14:34-0500 Diastolic blood pressure 74 mm[Hg] Lissette Curiel MD Work Phone: [facility] 01-12-2023 14:34-0500 Heart rate 90 /min Lissette Curiel MD Work Phone: [facility] 01-12-2023 14:34-0500 SaO2% (BldA) [Mass fraction] 97 % Lissette Curiel MD Work Phone: [facility] 01-12-2023 14:34-0500 Systolic blood pressure 129 mm[Hg] Lissette Curiel MD Work Phone: [facility] 01-05-2023 07:32-0500 Body temperature 98.5 [degF] Dr. Cira Ku Work Phone: [facility] 01-05-2023 07:32-0500 Diastolic blood pressure 76 mm[Hg] Dr. Cira Ku Work Phone: [facility] 01-05-2023 07:32-0500 Heart rate 88 /min Dr. Cira Ku Work Phone: [facility] 01-05-2023 07:32-0500 Respiratory rate 12 /min Dr. Cira Ku Work Phone: [facility] 01-05-2023 07:32-0500 SaO2% (BldA) [Mass fraction] 98 % Dr. Cira Ku Work Phone: [facility] 01-05-2023 07:32-0500 Systolic blood pressure 138 mm[Hg] Dr. Cira Ku Work Phone: [facility] 06-16-2022 08:04-0400 Body height 157.48 cm Chanelle Rizvi LPN [facility]; [facility] Work Phone: 06-16-2022 08:04-0400 Body mass index (BMI) [Ratio] 18.66 kg/m2 Chanelle Rizvi LPN [facility]; [facility] Work Phone: 06-16-2022 08:04-0400 Body surface area Derived from formula 1.44 m2 Chanelle Rizvi LPN [facility]; [facility] Work Phone: 06-16-2022 08:04-0400 Body temperature 96.6 [degF] Chanelle Rizvi LPN [facility] Work Phone: 06-16-2022 08:04-0400 Body weight 46.27 kg Chanelle Rizvi LPN [facility]; [facility] Work Phone: 06-16-2022 08:04-0400 Diastolic blood pressure 82 mm[Hg] Chanelle Rizvi LPN [facility]; [facility] Work Phone: 06-16-2022 08:04-0400 Heart rate 64 /min Chanelle Rizvi LPN [facility]; [facility] Work Phone: 06-16-2022 08:04-0400 Respiratory rate 16 /min Chanelle Shirleybenjamin [facility]; [facility] Work Phone: 06-16-2022 08:04-0400 SaO2% (BldA) [Mass fraction] 96 % Chanelle Shirleybenjamin [facility]; [facility] Work Phone: 06-16-2022 08:04-0400 Systolic blood pressure 128 mm[Hg] Chanelle Shirleybenjamin [facility]; [facility] Work Phone: 03-17-2022 08:05-0500 [facility] Work Phone: 03-17-2022 08:05-0500 Body mass index (BMI) [Ratio] 18[facility] Work Phone: 03-17-2022 08:05-0500 Body surface area Derived from formula 1.43 [facility]2 [facility] Work Phone: 03-17-2022 08:05-0500 Body temperature 97 [degF] Amol [facility]; [facility] Work Phone: 03-17-2022 08:05-0500 [facility] Work Phone: 03-17-2022 08:05-0500 Diastolic blood pressure 68 mm[Hg] Amol [facility]; [facility] Work Phone: 03-17-2022 08:05-0500 Heart rate 94 /min [facility]; [facility] Work Phone: 03-17-2022 08:05-0500 Respiratory rate 16 /min [facility]; [facility] Work Phone: 03-17-2022 08:05-0500 SaO2% (BldA) [Mass fraction] 100 % [facility]; [facility] Work Phone: 03-17-2022 08:05-0500 Systolic blood pressure 122 mm[Hg] [facility]; [facility] Work Phone: 12-12-2021 07:46-0400 Body height 157.48 cm Cira Elmira DO Work Phone: [facility]; [facility] Work Phone: 12-12-2021 07:46-0400 Body mass index (BMI) [Ratio] 18.11 kg/m2 Cira Elmira DO Work Phone: [facility]; [facility] Work Phone: 12-12-2021 07:46-0400 Body surface area Derived from formula 1.42 m2 Cira Elmira DO Work Phone: [facility]; [facility] Work Phone: 12-12-2021 07:46-0400 Body weight 44.91 kg Cira Elmira DO Work Phone: [facility]; [facility] Work Phone: 12-12-2021 07:46-0400 Diastolic blood pressure 73 mm[Hg] Cira Elmira DO Work Phone: [facility]; [facility] Work Phone: 12-12-2021 07:46-0400 Heart rate 76 /min Cira Elmira DO Work Phone: [facility]; [facility] Work Phone: 12-12-2021 07:46-0400 SaO2% (BldA) [Mass fraction] 98 % Cira Elmira DO Work Phone: [facility]; [facility] Work Phone: 12-12-2021 07:46-0400 Systolic blood pressure 126 mm[Hg] Cira Elmira DO Work Phone: [facility]; [facility] Work Phone: 11-06-2021 11:17-0400 Body height 157.[address] Cira Ku Work Phone: [facility] Work Phone: 11-06-2021 11:17-0400 Body mass index (BMI) [Ratio] 18.1 kg/m2 Dr. Cira Ku Work Phone: [facility] Work Phone: 11-06-2021 11:17-0400 Body weight 45.[address] Cira Ku Work Phone: [facility] Work Phone: 11-06-2021 11:17-0400 Diastolic blood pressure 76 mm[Hg] Dr. Cira Ku Work Phone: [facility] Work Phone: 11-06-2021 11:17-0400 Heart rate 84 /min Dr. Cira Ku Work Phone: [facility] Work Phone: 11-06-2021 11:17-0400 Respiratory rate 16 /min Dr. Cira Ku Work Phone: [facility] Work Phone: 11-06-2021 11:17-0400 Systolic blood pressure 130 mm[Hg] Dr. Cira Ku Work Phone: [facility] Work Phone: 07-16-2021 09:18-0400 Body temperature 97.5 [degF] Dr. Cira Ku Work Phone: [facility] Work Phone: 07-16-2021 09:18-0400 Diastolic blood pressure 68 mm[Hg] Dr. Cira Ku Work Phone: [facility] Work Phone: 07-16-2021 09:18-0400 Heart rate 91 /min Dr. Cira Ku Work Phone: [facility] Work Phone: 07-16-2021 09:18-0400 Respiratory rate 14 /min Dr. Cira Ku Work Phone: [facility] Work Phone: 07-16-2021 09:18-0400 SaO2% (BldA) [Mass fraction] 96 % Dr. Cira Ku Work Phone: [facility] Work Phone: 07-16-2021 09:18-0400 Systolic blood pressure 180 mm[Hg] Dr. Cira Ku Work Phone: [facility] Work Phone: 05-22-2021 10:13-0400 Body weight 44.45 kg Tamiko Graf MD Work Phone: [facility] 05-22-2021 10:13-0400 Diastolic blood pressure 66 mm[Hg] Tamiko Graf MD Work Phone: [facility] 05-22-2021 10:13-0400 Systolic blood pressure 140 mm[Hg] Tamiko Graf MD Work Phone: [facility] 04-15-2021 09:34-0500 Body height 157.48 cm Earnestine [facility]; [facility] Work Phone: Comment on above: no vs taken as this is phone encounter d ue to covid 04-15-2021 09:34-0500 Body mass index (BMI) [Ratio] 18.25 kg/m2 Earnestine [facility]; [facility] Work Phone: Comment on above: no vs taken as this is phone encounter d ue to covid 04-15-2021 09:34-0500 Body surface area Derived from formula 1.42 m2 Earnestine [facility]; [facility] Work Phone: Comment on above: no vs taken as this is phone encounter d ue to covid 04-15-2021 09:34-0500 Body weight 45.27 kg Earnestine Claudio CMA [facility]; [facility] Work Phone: Comment on above: no vs taken as this is phone encounter d ue to covid 04-12-2021 09:17-0500 Body height 157.[address] Cira Ku Work Phone: [facility] Work Phone: 04-12-2021 09:17-0500 Body mass index (BMI) [Ratio] 18.7 kg/m2 Dr. Cira Ku Work Phone: [facility] Work Phone: 04-12-2021 09:17-0500 Body weight 46.[address] Cira Ku Work Phone: [facility] Work Phone: 04-12-2021 09:17-0500 Diastolic blood pressure 78 mm[Hg] Dr. Cira Ku Work Phone: [facility] Work Phone: 04-12-2021 09:17-0500 Heart rate 76 /min Dr. Cira Ku Work Phone: [facility] Work Phone: 04-12-2021 09:17-0500 Respiratory rate 18 /min Dr. Cira Ku Work Phone: [facility] Work Phone: 04-12-2021 09:17-0500 Systolic blood pressure 148 mm[Hg] Dr. Cira Ku Work Phone: [facility] Work Phone: 03-14-2021 12:23-0500 Body height 157.48 cm Fabi Chamorro MA [facility]; [facility] Work Phone: 03-14-2021 12:23-0500 Body mass index (BMI) [Ratio] 18.25 kg/m2 Fabi Chamorro MA [facility]; [facility] Work Phone: 03-14-2021 12:23-0500 Body surface area Derived from formula 1.42 m2 Fabi Chamorro MA [facility]; [facility] Work Phone: 03-14-2021 12:23-0500 Body weight 45.27 kg Fabi Chamorro MA [facility]; [facility] Work Phone: 02-11-2021 12:28-0500 Body height 157.48 cm Chanelle Slarb [employer] UND[employer] [facility]; [facility] Work Phone: Comment on above: pt did not reported 02-11-2021 12:28-0500 Body mass index (BMI) [Ratio] 18.25 kg/m2 Chanelle Slarb [employer] UND[employer] [facility]; [facility] Work Phone: Comment on above: pt did not reported 02-11-2021 12:28-0500 Body surface area Derived from formula 1.42 m2 Chanelle Slarb [employer] UND[employer] [facility]; [facility] Work Phone: Comment on above: pt did not reported 02-11-2021 12:28-0500 Body weight 45.27 kg Chanelle Slarb [employer] UND[employer] [facility]; [facility] Work Phone: Comment on above: pt did not reported 11-02-2020 13:37-0400 Body height 157.48 cm Earnestine Gravius [facility]; [facility] Work Phone: 11-02-2020 13:37-0400 Body mass index (BMI) [Ratio] 18.25 kg/m2 Earnestine Gravius [facility]; [facility] Work Phone: 11-02-2020 13:37-0400 Body surface area Derived from formula 1.42 m2 Earnestine Gravius [facility]; [facility] Work Phone: 11-02-2020 13:37-0400 Body weight 45.27 kg Earnestine Gravius [facility]; [facility] Work Phone: 10-25-2020 12:27-0400 Body height 157.48 cm Earnestine Gravius [facility]; [facility] Work Phone: 10-25-2020 12:27-0400 Body mass index (BMI) [Ratio] 18.25 kg/m2 Earnestine Gravius [employer] ASSIST[employer] [facility]; [facility] Work Phone: 10-25-2020 12:27-0400 Body surface area Derived from formula 1.42 m2 Earnestine Gravius [facility]; [facility] Work Phone: 10-25-2020 12:27-0400 Body weight 45.27 kg Earnestine Gravius [facility]; [facility] Work Phone: 10-22-2020 15:27-0400 Body height 157.48 cm Earnestine Gravius [facility]; [facility] Work Phone: Comment on above: no vs taken as this is phone encounter d ue to covid 10-22-2020 15:27-0400 Body mass index (BMI) [Ratio] 18.25 kg/m2 Earnestine Gravius [facility]; [facility] Work Phone: Comment on above: no vs taken as this is phone encounter d ue to covid 10-22-2020 15:27-0400 Body surface area Derived from formula 1.42 m2 Earnestine Gravius [facility]; [facility] Work Phone: Comment on above: no vs taken as this is phone encounter d ue to covid 10-22-2020 15:27-0400 Body weight 45.27 kg Earnestine Gravius [facility]; [facility] Work Phone: Comment on above: no vs taken as this is phone encounter d ue to covid 08-08-2020 08:38-0400 Body height 157.48 cm [facility]; [facility] Work Phone: 08-08-2020 08:38-0400 Body mass index (BMI) [Ratio] 18.25 kg/m2 Emily Cross [employer] [facility]; [facility] Work Phone: 08-08-2020 08:38-0400 Body surface area Derived from formula 1.42 m2 [facility]; [facility] Work Phone: 08-08-2020 08:38-0400 Body weight 45.27 kg [facility]; [facility] Work Phone: 05-09-2020 11:04-0400 BMI (Body Mass Index) 18.25 kg/m2 [facility] Com[facility]; [facility] Work Phone: 05-09-2020 11:04-0400 Body weight 45.27 kg [facility]; [facility] Work Phone: 05-09-2020 11:04-0400 BSA (Body Surface Area) 1.42 m2 [facility]; [facility] Work Phone: 05-09-2020 11:04-0400 Height 157.48 cm [facility]; [facility] Work Phone: 04-06-2020 07:41-0500 BMI (Body Mass Index) 18.25 kg/m2 [facility]; [facility] Work Phone: 04-06-2020 07:41-0500 Body weight 45.27 kg [facility]; [facility] Work Phone: 04-06-2020 07:41-0500 BSA (Body Surface Area) 1.42 m2 [facility]; [facility] Work Phone: 04-06-2020 07:41-0500 Height 157.48 cm [facility]; [facility] Work Phone: 10-13-2019 12:20-0400 BMI (Body Mass Index) 18.25 kg/m2 [facility] Work Phone: 10-13-2019 12:20-0400 Body weight 45.27 kg Emily [facility] Work Phone: 10-13-2019 12:20-0400 BP Diastolic 70 mm[Hg] Emily [facility] Work Phone: Comment on above: Patient Position: Sitting; Cuff Location : Left Arm; Cuff Size: Standard 10-13-2019 12:20-0400 BP Systolic 136 mm[Hg] Emily [facility] Work Phone: Comment on above: Patient Position: Sitting; Cuff Location : Left Arm; Cuff Size: Standard 10-13-2019 12:20-0400 BSA (Body Surface Area) 1.42 m2 [facility] 10-13-2019 12:20-0400 Height 157.48 cm [facility] Work Phone: 10-13-2019 12:20-0400 Pulse (Heart Rate) 72 /min Emily [facility] Comprehensiv e [facility] Work Phone: Comment on above: Pattern: Regular 10-03-2019 12:46-0400 BMI (Body Mass Index) 18.25 kg/m2 Dhruv Cornejo [facility] Comprehen s[facility] Work Phone: 10-03-2019 12:46-0400 Body weight 45.27 kg Dhruv Cornejo [facility] Work Phone: 10-03-2019 12:46-0400 BP Diastolic 69 mm[Hg] Dhruv Cornejo [facility] Work Phone: Comment on above: Patient Position: Sitting; Cuff Location : Left Arm; Cuff Size: Standard 10-03-2019 12:46-0400 BP Systolic 117 mm[Hg] Dhruv Cornejo [facility] Work Phone: Comment on above: Patient Position: Sitting; Cuff Location : Left Arm; Cuff Size: Standard 10-03-2019 12:46-0400 BSA (Body Surface Area) 1.42 m2 Dhruv Cornejo [facility] Work Phone: 10-03-2019 12:46-0400 Height 157.48 cm Dhruv Cornejo [employer] [facility] Work Phone: 10-03-2019 12:46-0400 Pulse (Heart Rate) 72 /min Dhruv Cornejo [employer] Comprehensiv e [facility] Work Phone: Comment on above: Pattern: Regular 08-17-2019 14:14-0400 BMI (Body Mass Index) 18.25 kg/m2 Earnestine Claudio [facility] Work Phone: Comment on above: no vs taken as this is phone encounter d ue to covid 08-17-2019 14:14-0400 Body weight 45.27 kg Earnestine Claudio [facility] Work Phone: Comment on above: no vs taken as this is phone encounter d ue to covid 08-17-2019 14:14-0400 BSA (Body Surface Area) 1.42 m2 Earnestine Claudio [facility] Work Phone: Comment on above: no vs taken as this is phone encounter d ue to covid 08-17-2019 14:14-0400 Height 157.48 cm Earnestine Claudio [facility] Work Phone: Comment on above: no vs taken as this is phone encounter d ue to covid 11-15-2018 11:10-0400 BMI (Body Mass Index) 18.25 kg/m2 Chanelle Slarb [employer] Compre[facility] Work Phone: 11-15-2018 11:10-0400 Body Temperature 96.4 [degF] Chanelle Slarb [employer] UND[employer] [facility] Work Phone: 11-15-2018 11:10-0400 Body weight 45.27 kg Chanelle Slarb [employer] UNDER[employer] [facility] Work Phone: 11-15-2018 11:10-0400 BP Diastolic 82 mm[Hg] Chanelle Slarb [employer] UND[employer] [facility] Work Phone: Comment on above: Patient Position: Sitting; Cuff Location : Left Arm; Cuff Size: Standard 11-15-2018 11:10-0400 BP Systolic 122 mm[Hg] Chanelle Rizvi LPN [facility] Work Phone: Comment on above: Patient Position: Sitting; Cuff Location : Left Arm; Cuff Size: Standard 11-15-2018 11:10-0400 BSA (Body Surface Area) 1.42 m2 Chanelle Rizvi LPN [facility] Work Phone: 11-15-2018 11:10-0400 Height 157.48 cm Chanelle Rizvi [employer] [facility] Work Phone: 11-15-2018 11:10-0400 Pulse (Heart Rate) 85 /min Chanelle Rizvi LPN Comprehens[facility] e [facility] Work Phone: Comment on above: Pattern: Regular 11-15-2018 11:10-0400 Pulse Oximetry 97 % Cira Ku [facility] Work Phone: Comment on above: Room air 11-15-2018 11:10-0400 Respiratory Rate 17 /min Chanelle Rizvi LPN [facility] Work Phone: Comment on above: Pattern: Unlabored 11-15-2018 11:10-0400 SaO2% (BldA) [Mass fraction] 97 % Chanelle Rizvi [employer] [facility]; [facility] Work Phone: Comment on above: Room air 10-01-2018 08:01-0400 BMI (Body Mass Index) 18.25 kg/m2 Sheldon Rojo RN [facility] Work Phone: Comment on above: hearing wnlDr. Midiol and had a glaucoma test done 10-01-2018 08:01-0400 Body weight 45.27 kg Sheldon Rojo RN [facility] Work Phone: Comment on above: hearing wnlDr. Midiol and had a glaucoma test done 10-01-2018 08:01-0400 BP Diastolic 78 mm[Hg] Sheldon Rojo RN [facility] Work Phone: Comment on above: Patient Position: Sitting; Cuff Location : Left Arm; Cuff Size: Standard hearing wnlDr. Midio l and had a glaucoma test done 10-01-2018 08:01-0400 BP Systolic 118 mm[Hg] Sheldon Rojo RN [facility] Work Phone: Comment on above: Patient Position: Sitting; Cuff Location : Left Arm; Cuff Size: Standard hearing wnlDr. Midio l and had a glaucoma test done 10-01-2018 08:01-0400 BSA (Body Surface Area) 1.42 m2 Sheldon Rojo RN [facility] Work Phone: Comment on above: hearing wnlDr. Midiol and had a glaucoma test done 10-01-2018 08:01-0400 Height 157.48 cm Sheldon Rojo RN [facility] Work Phone: Comment on above: hearing wnlDr. Midiol and had a glaucoma test done 10-01-2018 08:01-0400 Pulse (Heart Rate) 65 /min Sheldon Rojo RN [facility] Work Phone: Comment on above: Pattern: Regular hearing wnlDr. Midio l and had a glaucoma test done 10-01-2018 08:01-0400 Pulse Oximetry 97 % Cira Ku [facility] Work Phone: Comment on above: Room air hearing wnlDr. Midio l and had a glaucoma test done 10-01-2018 08:01-0400 Respiratory Rate 18 /min Sheldon Rojo RN [facility] Work Phone: Comment on above: Pattern: Unlabored hearing wnlDr. Midio l and had a glaucoma test done 10-01-2018 08:01-0400 SaO2% (BldA) [Mass fraction] 97 % Sheldon Rojo RN [facility]; [facility] Work Phone: Comment on above: Room air hearing wnlDr. Midio l and had a glaucoma test done 09-09-2018 07:39-0400 BMI (Body Mass Index) 18.84 kg/m2 Sheldon Rojo RN [facility] Work Phone: 09-09-2018 07:39-0400 Body Temperature 97.4 [degF] Sheldon Rojo RN [facility] Work Phone: Comment on above: Method: Temporal 09-09-2018 07:39-0400 Body weight 46.72 kg Sheldon Rojo RN [facility] Work Phone: 09-09-2018 07:39-0400 BP Diastolic 78 mm[Hg] Sheldon Rojo RN [facility] Work Phone: Comment on above: Patient Position: Standing; Cuff Locatio n: Left Arm; Cuff Size: Standard 09-09-2018 07:39-0400 BP Systolic 124 mm[Hg] Sheldon Rojo RN [facility] Work Phone: Comment on above: Patient Position: Standing; Cuff Locatio n: Left Arm; Cuff Size: Standard 09-09-2018 07:39-0400 BSA (Body Surface Area) 1.44 m2 Sheldon Rojo RN [facility] Work Phone: 09-09-2018 07:39-0400 Height 157.48 cm Sheldon Rojo RN [facility] Work Phone: 09-09-2018 07:39-0400 Pulse (Heart Rate) 76 /min Sheldon Rojo RN [facility] Work Phone: Comment on above: Pattern: Regular 09-09-2018 07:39-0400 Pulse Oximetry 99 % Cira Elmira [facility] Work Phone: Comment on above: Room air 09-09-2018 07:39-0400 Respiratory Rate 16 /min Sheldon Rojo RN [facility] Work Phone: Comment on above: Pattern: Unlabored 09-09-2018 07:39-0400 SaO2% (BldA) [Mass fraction] 99 % Sheldon Rojo RN [facility]; [facility] Work Phone: Comment on above: Room air 08-12-2018 07:12-0400 BMI (Body Mass Index) 18.84 kg/m2 [facility] Work Phone: 08-12-2018 07:12-0400 Body weight 46.72 kg Sheldon Simental [facility] Work Phone: 08-12-2018 07:12-0400 BP Diastolic 72 mm[Hg] Sheldon Simental [facility] Work Phone: Comment on above: Patient Position: Sitting; Cuff Location : Left Arm; Cuff Size: Standard 08-12-2018 07:12-0400 BP Systolic 114 mm[Hg] Sheldon Wilkinson [facility] Work Phone: Comment on above: Patient Position: Sitting; Cuff Location : Left Arm; Cuff Size: Standard 08-12-2018 07:12-0400 BSA (Body Surface Area) 1.44 m2 Sheldon Wilkinson [facility] Work Phone: 08-12-2018 07:12-0400 Height 157.48 cm Sheldon Wilkinson [facility] Work Phone: 08-12-2018 07:12-0400 Pulse (Heart Rate) 70 /min Sheldon Wilkinson [facility] Work Phone: Comment on above: Pattern: Regular 08-12-2018 07:12-0400 Pulse Oximetry 96 % Cira Elmira [facility] Work Phone: Comment on above: Room air 08-12-2018 07:12-0400 Respiratory Rate 16 /min Sheldon Wilkinson [facility] Work Phone: Comment on above: Pattern: Unlabored 08-12-2018 07:12-0400 SaO2% (BldA) [Mass fraction] 96 % Sheldon Wilkinson [facility] Work Phone: Comment on above: Room air 08-12-2018 07:12-0400 Weight 46.72 kg Cira Elmira [facility] Work Phone: 05-28-2018 08:10-0400 BMI (Body Mass Index) 18.84 kg/m2 Sheldon Rojo RN [facility] Work Phone: 05-28-2018 08:10-0400 Body Temperature 98.5 [degF] Sheldon Rojo RN [facility] Work Phone: Comment on above: Method: Temporal 05-28-2018 08:10-0400 Body weight 46.72 kg Sheldon Rojo RN [facility] Work Phone: 05-28-2018 08:10-0400 BP Diastolic 62 mm[Hg] Sheldon Rojo RN [facility] Work Phone: Comment on above: Patient Position: Sitting; Cuff Location : Left Arm; Cuff Size: Standard 05-28-2018 08:10-0400 BP Systolic 128 mm[Hg] Sheldon Rojo RN [facility] Work Phone: Comment on above: Patient Position: Sitting; Cuff Location : Left Arm; Cuff Size: Standard 05-28-2018 08:10-0400 BSA (Body Surface Area) 1.44 m2 Sheldon Rojo RN [facility] Work Phone: 05-28-2018 08:10-0400 Height 157.48 cm Sheldon Rojo RN [facility] Work Phone: 05-28-2018 08:10-0400 Pulse (Heart Rate) 67 /min Sheldon Rojo RN [facility] Medicine Work Phone: Comment on above: Pattern: Regular 05-28-2018 08:10-0400 Pulse Oximetry 97 % Cira Ku [facility] Work Phone: Comment on above: Room air 05-28-2018 08:10-0400 Respiratory Rate 16 /min Sheldon Rojo RN [facility] Work Phone: Comment on above: Pattern: Unlabored 05-28-2018 08:10-0400 SaO2% (BldA) [Mass fraction] 97 % Sheldon Rojo RN [facility]; [facility] Work Phone: Comment on above: Room air 05-28-2018 08:10-0400 Weight 46.72 kg Cira Delgadoon [facility] Work Phone: 07-14-2017 10:41-0400 BMI (Body Mass Index) 18.52 kg/m2 Sheldon Rojo RN [facility] Work Phone: 07-14-2017 10:41-0400 Body weight 45.93 kg Sheldon Rojo RN [facility] Work Phone: 07-14-2017 10:41-0400 BP Diastolic 82 mm[Hg] Sheldon Rojo RN [facility] Work Phone: Comment on above: Patient Position: Sitting; Cuff Location : Left Arm; Cuff Size: Standard 07-14-2017 10:41-0400 BP Systolic 158 mm[Hg] Sheldon Rojo RN [facility] Work Phone: Comment on above: Patient Position: Sitting; Cuff Location : Left Arm; Cuff Size: Standard 07-14-2017 10:41-0400 BSA (Body Surface Area) 1.43 m2 Sheldon Rojo RN [facility] Work Phone: 07-14-2017 10:41-0400 Height 157.48 cm Sheldon Rojo RN [facility] Work Phone: 07-14-2017 10:41-0400 Pulse (Heart Rate) 75 /min Sheldon Rojo RN [facility] Work Phone: Comment on above: Pattern: Regular 07-14-2017 10:41-0400 Pulse Oximetry 98 % Cira Elmira [facility] Work Phone: Comment on above: Room air 07-14-2017 10:41-0400 Respiratory Rate 18 /min Sheldon Rojo RN [facility] Work Phone: Comment on above: Pattern: Unlabored 07-14-2017 10:41-0400 SaO2% (BldA) [Mass fraction] 98 % Sheldon Rojo RN [facility]; [facility] Work Phone: Comment on above: Room air 07-14-2017 10:41-0400 Weight 45.93 kg Cira Elmira [facility] Work Phone: 05-08-2017 13:32-0400 BMI (Body Mass Index) 18.7 kg/m2 Sheldon Rojo RN [facility] Work Phone: 05-08-2017 13:32-0400 Body weight 46.38 kg Sheldon Rojo RN [facility] Work Phone: 05-08-2017 13:32-0400 BP Diastolic 68 mm[Hg] Sheldon Rojo RN [facility] Work Phone: Comment on above: Patient Position: Sitting; Cuff Location : Left Arm; Cuff Size: Standard 05-08-2017 13:32-0400 BP Systolic 112 mm[Hg] Sheldon Rojo RN [facility] Work Phone: Comment on above: Patient Position: Sitting; Cuff Location : Left Arm; Cuff Size: Standard 05-08-2017 13:32-0400 BSA (Body Surface Area) 1.44 m2 Sheldon Rojo RN [facility] Work Phone: 05-08-2017 13:32-0400 Height 157.48 cm Sheldon Rojo RN [facility] Work Phone: 05-08-2017 13:32-0400 Pulse (Heart Rate) 72 /min Sheldon Rojo RN [facility] Work Phone: Comment on above: Pattern: Regular 05-08-2017 13:32-0400 Pulse Oximetry 96 % Cira Ku [facility] Work Phone: Comment on above: Room air 05-08-2017 13:32-0400 Respiratory Rate 18 /min Sheldon Rojo RN [facility] Work Phone: Comment on above: Pattern: Unlabored 05-08-2017 13:32-0400 SaO2% (BldA) [Mass fraction] 96 % Sheldon Rojo RN [facility]; [facility] Work Phone: Comment on above: Room air 05-08-2017 13:32-0400 Weight 46.38 kg Cira Ku [facility] Work Phone: 04-22-2017 13:46-0500 BMI (Body Mass Index) 18.7 kg/m2 Sheldon Rojo RN [facility] Work Phone: 04-22-2017 13:46-0500 Body weight 46.38 kg Sheldon Rojo RN [facility] Work Phone: 04-22-2017 13:46-0500 BP Diastolic 60 mm[Hg] Sheldon Rojo RN [facility] Work Phone: Comment on above: Patient Position: Sitting; Cuff Location : Left Arm; Cuff Size: Standard 04-22-2017 13:46-0500 BP Systolic 120 mm[Hg] Sheldon Rojo RN [facility] Work Phone: Comment on above: Patient Position: Sitting; Cuff Location : Left Arm; Cuff Size: Standard 04-22-2017 13:46-0500 BSA (Body Surface Area) 1.44 m2 Sheldon Rojo RN [facility] Work Phone: 04-22-2017 13:46-0500 Height 157.48 cm Sheldon Rojo RN [facility] Work Phone: 04-22-2017 13:46-0500 Pulse (Heart Rate) 79 /min Sheldon Rojo RN [facility] Work Phone: Comment on above: Pattern: Regular 04-22-2017 13:46-0500 Pulse Oximetry 97 % Cira Ku [facility] Work Phone: Comment on above: Room air 04-22-2017 13:46-0500 Respiratory Rate 18 /min Sheldon Rojo RN [facility] Work Phone: Comment on above: Pattern: Unlabored 04-22-2017 13:46-0500 SaO2% (BldA) [Mass fraction] 97 % Sheldon Rojo RN [facility]; [facility] Work Phone: Comment on above: Room air 04-22-2017 13:46-0500 Weight 46.38 kg Cira Delgadoon [facility] Work Phone: 11-14-2016 13:07-0400 BMI (Body Mass Index) 18.84 kg/m2 Sheldon Rojo RN [facility] Work Phone: 11-14-2016 13:07-0400 Body Temperature 97.3 [degF] Sheldon Rojo RN [facility] Work Phone: Comment on above: Method: Temporal 11-14-2016 13:07-0400 Body weight 46.72 kg Sheldon Rojo RN [facility] Work Phone: 11-14-2016 13:07-0400 BP Diastolic 78 mm[Hg] Sheldon Rojo RN [facility] Work Phone: Comment on above: Patient Position: Sitting; Cuff Location : Left Arm; Cuff Size: Standard 11-14-2016 13:07-0400 BP Systolic 128 mm[Hg] Sheldon Rojo RN [facility] Work Phone: Comment on above: Patient Position: Sitting; Cuff Location : Left Arm; Cuff Size: Standard 11-14-2016 13:07-0400 BSA (Body Surface Area) 1.44 m2 Sheldon Rojo RN [facility] Work Phone: 11-14-2016 13:07-0400 Height 157.48 cm Sheldon Rojo RN [facility] Work Phone: 11-14-2016 13:07-0400 Pulse (Heart Rate) 84 /min Sheldon Rojo RN [facility] Work Phone: Comment on above: Pattern: Regular 11-14-2016 13:07-0400 Pulse Oximetry 98 % Cira Ku [facility] Work Phone: Comment on above: Room air 11-14-2016 13:07-0400 Respiratory Rate 16 /min Sheldon Rojo RN [facility] Work Phone: Comment on above: Pattern: Unlabored 11-14-2016 13:07-0400 SaO2% (BldA) [Mass fraction] 98 % Sheldon Rojo RN [facility]; [facility] Work Phone: Comment on above: Room air 11-14-2016 13:07-0400 Weight 46.72 kg Cira Delgadoon [facility] Work Phone: 09-08-2016 12:05-0400 BMI (Body Mass Index) 19.02 kg/m2 Sheldon Rojo RN [facility] Work Phone: 09-08-2016 12:05-0400 Body weight 47.17 kg Sheldon Rojo RN [facility] Work Phone: 09-08-2016 12:05-0400 BP Diastolic 62 mm[Hg] Sheldon Rojo RN [facility] Work Phone: Comment on above: Patient Position: Sitting; Cuff Location : Left Arm; Cuff Size: Standard 09-08-2016 12:05-0400 BP Systolic 118 mm[Hg] Sheldon Rojo RN [facility] Work Phone: Comment on above: Patient Position: Sitting; Cuff Location : Left Arm; Cuff Size: Standard 09-08-2016 12:05-0400 BSA (Body Surface Area) 1.45 m2 Sheldon Rojo RN [facility] Work Phone: 09-08-2016 12:05-0400 Height 157.48 cm Sheldon Rojo RN [facility] Work Phone: 09-08-2016 12:05-0400 Pulse (Heart Rate) 85 /min Sheldon Rojo RN [facility] Work Phone: Comment on above: Pattern: Regular 09-08-2016 12:05-0400 Pulse Oximetry 96 % Cira Ku [facility] Work Phone: Comment on above: Room air 09-08-2016 12:05-0400 Respiratory Rate 18 /min Sheldon Rojo RN [facility] Work Phone: Comment on above: Pattern: Unlabored 09-08-2016 12:05-0400 SaO2% (BldA) [Mass fraction] 96 % Sheldon Rojo RN [facility]; [facility] Work Phone: Comment on above: Room air 09-08-2016 12:05-0400 Weight 47.17 kg Cira Ku [facility] Work Phone: 08-28-2016 12:57-0400 BMI (Body Mass Index) 19.02 kg/m2 Michelle Nolan [facility] Work Phone: 08-28-2016 12:57-0400 Body Temperature 97.8 [degF] Michelle Nolan [facility] Work Phone: Comment on above: Method: Temporal 08-28-2016 12:57-0400 Body weight 47.17 kg Michelle Nolan [facility] Work Phone: 08-28-2016 12:57-0400 BP Diastolic 64 mm[Hg] Michelle Nolan [facility] Work Phone: Comment on above: Patient Position: Sitting; Cuff Location : Left Arm; Cuff Size: Standard 08-28-2016 12:57-0400 BP Systolic 176 mm[Hg] Michelle Nolan [facility] Work Phone: Comment on above: Patient Position: Sitting; Cuff Location : Left Arm; Cuff Size: Standard 08-28-2016 12:57-0400 BSA (Body Surface Area) 1.45 m2 Michelle Nolan [facility] Work Phone: 08-28-2016 12:57-0400 Height 157.48 cm Michelle Ovidio [facility] Work Phone: 08-28-2016 12:57-0400 Pulse (Heart Rate) 76 /min Michelle Flkavya [facility] Work Phone: Comment on above: Pattern: Regular 08-28-2016 12:57-0400 Pulse Oximetry 98 % Cira Ku [facility] Work Phone: Comment on above: Room air 08-28-2016 12:57-0400 Respiratory Rate 16 /min Michelle Ovidio [facility] Work Phone: Comment on above: Pattern: Unlabored 08-28-2016 12:57-0400 SaO2% (BldA) [Mass fraction] 98 % Michelle Nolan [facility]; [facility] Work Phone: Comment on above: Room air 08-28-2016 12:57-0400 Weight 47.17 kg Cira Delgadoon [facility] Work Phone: 04-24-2016 12:32-0500 BMI (Body Mass Index) 19.07 kg/m2 Sheldon oRjo RN [facility] Work Phone: 04-24-2016 12:32-0500 Body weight 47.29 kg Sheldon Rojo RN [facility] Work Phone: 04-24-2016 12:32-0500 BP Diastolic 68 mm[Hg] Sheldon Rojo RN [facility] Work Phone: Comment on above: Patient Position: Sitting; Cuff Location : Left Arm; Cuff Size: Standard 04-24-2016 12:32-0500 BP Systolic 142 mm[Hg] Sheldon Rojo RN [facility] Work Phone: Comment on above: Patient Position: Sitting; Cuff Location : Left Arm; Cuff Size: Standard 04-24-2016 12:32-0500 BSA (Body Surface Area) 1.45 m2 Sheldon Rojo RN [facility] Work Phone: 04-24-2016 12:32-0500 Height 157.48 cm Sheldon Rojo RN [facility] Work Phone: 04-24-2016 12:32-0500 Pulse (Heart Rate) 68 /min Sheldon Rojo RN [facility] Work Phone: Comment on above: Pattern: Regular 04-24-2016 12:32-0500 Pulse Oximetry 97 % Cira Ku [facility] Work Phone: Comment on above: Room air 04-24-2016 12:32-0500 Respiratory Rate 18 /min Sheldon Rojo RN [facility] Work Phone: Comment on above: Pattern: Unlabored 04-24-2016 12:32-0500 SaO2% (BldA) [Mass fraction] 97 % Sheldon Rojo RN [facility]; [facility] Work Phone: Comment on above: Room air 04-24-2016 12:32-0500 Weight 47.29 kg Cira Ku [facility] Work Phone: 08-03-2015 08:50-0400 BMI (Body Mass Index) 18.88 kg/m2 Sheldon Rojo RN [facility] Work Phone: Comment on above: hearing wnlDr Midol and had a glaucoma t est 08-03-2015 08:50-0400 Body weight 46.83 kg Sheldon Rojo RN [facility] Work Phone: Comment on above: hearing wnlDr Midol and had a glaucoma t est 08-03-2015 08:50-0400 BP Diastolic 62 mm[Hg] Sheldon Rojo RN [facility] Work Phone: Comment on above: Patient Position: Sitting; Cuff Location : Left Arm; Cuff Size: Standard hearing wnlDr Midol and had a glaucoma test 08-03-2015 08:50-0400 BP Systolic 140 mm[Hg] Sheldon Rojo RN [facility] Work Phone: Comment on above: Patient Position: Sitting; Cuff Location : Left Arm; Cuff Size: Standard hearing wnlDr Midol and had a glaucoma test 08-03-2015 08:50-0400 BSA (Body Surface Area) 1.44 m2 Sheldon Rojo RN [facility] Work Phone: Comment on above: hearing wnlDr Midol and had a glaucoma t est 08-03-2015 08:50-0400 Height 157.48 cm Sheldon Rojo RN [facility] Work Phone: Comment on above: hearing wnlDr Midol and had a glaucoma t est 08-03-2015 08:50-0400 Pulse (Heart Rate) 72 /min Sheldon Rojo RN [facility] Work Phone: Comment on above: Pattern: Regular hearing wnlDr Midol and had a glaucoma test 08-03-2015 08:50-0400 Pulse Oximetry 96 % Cira Elmira [facility] Work Phone: Comment on above: Room air hearing wnlDr Midol and had a glaucoma test 08-03-2015 08:50-0400 Respiratory Rate 18 /min Sheldon Rojo RN [facility] Work Phone: Comment on above: Pattern: Unlabored hearing wnlDr Midol and had a glaucoma test 08-03-2015 08:50-0400 SaO2% (BldA) [Mass fraction] 96 % Sheldon Rojo RN [facility]; [facility] Work Phone: Comment on above: Room air hearing wnlDr Midol and had a glaucoma test 08-03-2015 08:50-0400 Weight 46.83 kg Cira Elmira [facility] Work Phone: Comment on above: hearing wnlDr Midol and had a glaucoma t est 07-02-2015 08:15-0400 BMI (Body Mass Index) 19.02 kg/m2 Mickie Christiansen [facility] Work Phone: 07-02-2015 08:15-0400 Body weight 47.17 kg Mickie Christiansen [facility] Work Phone: 07-02-2015 08:15-0400 BP Diastolic 64 mm[Hg] Mickie Christiansen [facility] Work Phone: Comment on above: Patient Position: Sitting; Cuff Location : Left Arm; Cuff Size: Standard 07-02-2015 08:15-0400 BP Systolic 122 mm[Hg] Mickie Christiansen [facility] Work Phone: Comment on above: Patient Position: Sitting; Cuff Location : Left Arm; Cuff Size: Standard 07-02-2015 08:15-0400 BSA (Body Surface Area) 1.45 m2 Mickie Christiansen [facility] Work Phone: 07-02-2015 08:15-0400 Height 157.48 cm Mickie Christiansen [facility] Work Phone: 07-02-2015 08:15-0400 Pulse (Heart Rate) 84 /min Mickie Christiansen [facility] Work Phone: Comment on above: Pattern: Regular 07-02-2015 08:15-0400 Pulse Oximetry 98 % Cira Ku [facility] Work Phone: Comment on above: Room air 07-02-2015 08:15-0400 Respiratory Rate 16 /min Mickie Christiansen [facility] Work Phone: Comment on above: Pattern: Unlabored 07-02-2015 08:15-0400 SaO2% (BldA) [Mass fraction] 98 % Mickie Christiansen [facility]; [facility] Work Phone: Comment on above: Room air 07-02-2015 08:15-0400 Weight 47.17 kg Cira Ku [facility] Medicine Work Phone: 09-16-2013 08:31-0400 BMI (Body Mass Index) 18.47 kg/m2 ROBYN Monroy [facility] Work Phone: 09-16-2013 08:31-0400 Body Temperature 97.8 [degF] ROBYN Monroy [facility] Work Phone: Comment on above: Method: Oral 09-16-2013 08:31-0400 Body weight 45.81 kg ROBYN Monroy [facility] Work Phone: 09-16-2013 08:31-0400 BP Diastolic 70 mm[Hg] ROBYN Monroy [facility] Work Phone: Comment on above: Patient Position: Sitting; Cuff Location : Left Arm; Cuff Size: Standard 09-16-2013 08:31-0400 BP Systolic 110 mm[Hg] ROBYN Porfirio LATHAM [facility] Work Phone: Comment on above: Patient Position: Sitting; Cuff Location : Left Arm; Cuff Size: Standard 09-16-2013 08:31-0400 BSA (Body Surface Area) 1.43 m2 ROBYN Porfirio LATHAM [facility] Work Phone: 09-16-2013 08:31-0400 Height 157.48 cm ROBYNDENNYS Monroy LPN [facility] Work Phone: 09-16-2013 08:31-0400 Pulse (Heart Rate) 68 /min ROBYN Porfirio LATHMA [facility] Work Phone: Comment on above: Pattern: Regular 09-16-2013 08:31-0400 Respiratory Rate 20 /min ROBYN Porfirio LATHAM [facility] Work Phone: Comment on above: Pattern: Unlabored 09-16-2013 08:31-0400 Weight 45.81 kg Cira Ku [facility] Work Phone: 10-26-2012 09:14-0400 BMI (Body Mass Index) 18.11 kg/m2 Farrah Iyer RN [facility] Work Phone: 10-26-2012 09:14-0400 Body Temperature 98.5 [degF] Farrah Iyer RN [facility] Work Phone: Comment on above: Method: Temporal 10-26-2012 09:140400 Body weight 44.91 kg Farrah Iyer RN [facility] Work Phone: 10-26-2012 09:14-0400 BP Diastolic 72 mm[Hg] Farrah Iyer RN [facility] Work Phone: Comment on above: Patient Position: Sitting; Cuff Location : Left Arm; Cuff Size: Standard 10-26-2012 09:14-0400 BP Systolic 116 mm[Hg] Farrah Iyer RN [facility] Work Phone: Comment on above: Patient Position: Sitting; Cuff Location : Left Arm; Cuff Size: Standard 10-26-2012 09:14-0400 BSA (Body Surface Area) 1.42 m2 Farrah Iyer RN [facility] Work Phone: 10-26-2012 09:140400 Height 157.48 cm Farrah Iyer RN [facility] Work Phone: 10-26-2012 09:14-0400 Pulse (Heart Rate) 62 /min Farrah Iyer RN [facility] Work Phone: Comment on above: Pattern: Regular 10-26-2012 09:14-0400 Respiratory Rate 16 /min Farrah Iyer RN [facility] Work Phone: Comment on above: Pattern: Unlabored 10-26-2012 09:14-0400 Weight 44.91 kg Cira Ku [facility] Work Phone: 11-27-2011 10:25-0400 BMI (Body Mass Index) 18.25 kg/m2 ROBYN Monroy LPN [facility] Work Phone: 11-27-2011 10:25-0400 Body Temperature 98 [degF] ROBYN Monroy NOA [facility] Work Phone: Comment on above: Method: Oral 11-27-2011 10:25-0400 Body weight 45.27 kg ROBYN Monroy NOA [facility] Work Phone: 11-27-2011 10:25-0400 BP Diastolic 78 mm[Hg] ROBYN Monroy LPN [facility] Work Phone: Comment on above: Patient Position: Sitting; Cuff Location : Left Arm; Cuff Size: Standard 11-27-2011 10:25-0400 BP Systolic 118 mm[Hg] ROBYN Monroy NOA [facility] Work Phone: Comment on above: Patient Position: Sitting; Cuff Location : Left Arm; Cuff Size: Standard 11-27-2011 10:25-0400 BSA (Body Surface Area) 1.42 m2 ROBYN Monroy NOA [facility] Work Phone: 11-27-2011 10:25-0400 Height 157.48 cm ROBYN Monroy LPN [facility] Work Phone: 11-27-2011 10:25-0400 Pulse (Heart Rate) 74 /min ROBYN Monroy LPN [facility] Work Phone: Comment on above: Pattern: Regular 11-27-2011 10:25-0400 Respiratory Rate 18 /min ROBYN Monroy LPN [facility] Work Phone: Comment on above: Pattern: Unlabored 11-27-2011 10:25-0400 Weight 45.27 kg Cira Ku [facility] Work Phone: 10-18-2010 08:16-0400 BMI (Body Mass Index) 18.11 kg/m2 ROBYN Monroy LPN [facility] Work Phone: 10-18-2010 08:16-0400 Body Temperature 97.7 [degF] ROBYN Monroy LPN [facility] Work Phone: Comment on above: Method: Oral 10-18-2010 08:16-0400 Body weight 44.91 kg ROBYN Monroy LPN [facility] Work Phone: 10-18-2010 08:16-0400 BP Diastolic 78 mm[Hg] ROBYN Monroy LPN [facility] Work Phone: Comment on above: Patient Position: Sitting; Cuff Location : Left Arm; Cuff Size: Standard 10-18-2010 08:16-0400 BP Systolic 122 mm[Hg] ROBYN Monroy LPN [facility] Work Phone: Comment on above: Patient Position: Sitting; Cuff Location : Left Arm; Cuff Size: Standard 10-18-2010 08:16-0400 BSA (Body Surface Area) 1.42 m2 ROBYN Monroy LPN [facility] Work Phone: 10-18-2010 08:16-0400 Height 157.48 cm ROBYN Monroy LPN [facility] Work Phone: 10-18-2010 08:16-0400 Pulse (Heart Rate) 74 /min ROBYN Monroy LPN [facility] Work Phone: Comment on above: Pattern: Regular 10-18-2010 08:16-0400 Respiratory Rate 18 /min ROBYN Monroy LPN [facility] Work Phone: Comment on above: Pattern: Unlabored 10-18-2010 08:16-0400 Weight 44.91 kg Cira Ku [facility] Work Phone: 07-23-2010 11:13-0400 BMI (Body Mass Index) 18.29 kg/m2 Cira Ku [facility] Work Phone: 07-23-2010 11:13-0400 Body Temperature 98.5 [degF] Cira Ku [facility] Work Phone: Comment on above: Method: Oral 07-23-2010 11:13-0400 Body weight 45.36 kg Cira Ku [facility] Work Phone: 07-23-2010 11:13-0400 BP Diastolic 82 mm[Hg] Cira Ku [facility] Work Phone: Comment on above: Patient Position: Sitting; Cuff Location : Left Arm; Cuff Size: Standard 07-23-2010 11:13-0400 BP Systolic 138 mm[Hg] Cira Ku [facility] Work Phone: Comment on above: Patient Position: Sitting; Cuff Location : Left Arm; Cuff Size: Standard 07-23-2010 11:13-0400 BSA (Body Surface Area) 1.42 m2 Cira Ku [facility] Work Phone: 07-23-2010 11:13-0400 Height 157.48 cm Cira Ku [facility] Work Phone: 07-23-2010 11:13-0400 Pulse (Heart Rate) 78 /min Cira uK [facility] Work Phone: Comment on above: Pattern: Regular 07-23-2010 11:13-0400 Respiratory Rate 15 /min Cira Ku [facility] Work Phone: Comment on above: Pattern: Unlabored 07-23-2010 11:13-0400 Weight 45.36 kg Cira Ku [facility] Work Phone: 06-11-2010 13:11-0400 BMI (Body Mass Index) 18.29 kg/m2 ROBYN Monroy LPN [facility] Work Phone: 06-11-2010 13:11-0400 Body Temperature 98.1 [degF] ROBYN Monroy LPN [facility] Work Phone: Comment on above: Method: Oral 06-11-2010 13:11-0400 Body weight 45.36 kg ROBYN Monroy LPN [facility] Work Phone: 06-11-2010 13:11-0400 BP Diastolic 80 mm[Hg] ROBYN Monroy LPN [facility] Work Phone: Comment on above: Patient Position: Sitting; Cuff Location : Left Arm; Cuff Size: Standard 06-11-2010 13:11-0400 BP Systolic 130 mm[Hg] ROBYN Monroy LPN [facility] Work Phone: Comment on above: Patient Position: Sitting; Cuff Location : Left Arm; Cuff Size: Standard 06-11-2010 13:11-0400 BSA (Body Surface Area) 1.42 m2 ROBYN Monroy LPN [facility] Work Phone: 06-11-2010 [id number] Height 157.48 cm ROBYN Monroy LPN [facility] Work Phone: 06-11-2010 13:11-0400 Pulse (Heart Rate) 70 /min ROBYN Monroy LPN [facility] Work Phone: Comment on above: Pattern: Regular 06-11-2010 13:11-0400 Respiratory Rate 18 /min ROBYN Monroy LPN [facility] Work Phone: Comment on above: Pattern: Unlabored 06-11-2010 13:11-0400 Weight 45.36 kg Cira Ku [facility] Work Phone: 04-22-2010 07:56-0500 Body Temperature 98.1 [degF] ROBYN Monroy LPN [facility] Work Phone: Comment on above: Method: Oral 04-22-2010 07:56-0500 Body weight 45.36 kg ROBYN Monroy LPN [facility] Work Phone: 04-22-2010 07:56-0500 BP Diastolic 78 mm[Hg] ROBYN Monroy LPN [facility] Work Phone: Comment on above: Patient Position: Sitting; Cuff Location : Left Arm; Cuff Size: Standard 04-22-2010 07:56-0500 BP Systolic 118 mm[Hg] ROBYN Monroy LPN [facility] Work Phone: Comment on above: Patient Position: Sitting; Cuff Location : Left Arm; Cuff Size: Standard 04-22-2010 07:56-0500 Pulse (Heart Rate) 72 /min ROBYN Monroy LPN [facility] Work Phone: Comment on above: Pattern: Regular 04-22-2010 07:56-0500 Respiratory Rate 18 /min ROBYN Monroy LPN [facility] Work Phone: Comment on above: Pattern: Unlabored 04-22-2010 07:56-0500 Weight 45.36 kg Cira Ku [facility] Work Phone: 09-25-2009 14:01-0400 Body Temperature 97.6 [degF] ROBYN Monroy [employer] [facility] Work Phone: Comment on above: Method: Oral 09-25-2009 14:01-0400 Body weight 45.36 kg ROBYN Monroy LPN [facility] Work Phone: 09-25-2009 14:01-0400 BP Diastolic 80 mm[Hg] ROBYN Monroy [employer] [facility] Work Phone: Comment on above: Patient Position: Sitting; Cuff Location : Left Arm; Cuff Size: Standard 09-25-2009 14:01-0400 BP Systolic 126 mm[Hg] ROBYN Monroy LPN [facility] Work Phone: Comment on above: Patient Position: Sitting; Cuff Location : Left Arm; Cuff Size: Standard 09-25-2009 14:01-0400 Pulse (Heart Rate) 78 /min ROBYN Monroy LPN [facility] Work Phone: Comment on above: Pattern: Regular 09-25-2009 14:01-0400 Respiratory Rate 18 /min ROBYN Monroy LPN [facility] Work Phone: Comment on above: Pattern: Unlabored 09-25-2009 14:01-0400 Weight 45.36 kg Cira Ku [facility] Work Phone: 05-11-2009 11:47-0400 Body Temperature 97.2 [degF] Sheldon Rojo RN [facility] Work Phone: Comment on above: Method: Oral 05-11-2009 11:47-0400 Body weight 0.01 kg Sheldon Rojo RN [facility] Work Phone: 05-11-2009 11:47-0400 BP Diastolic 80 mm[Hg] Sheldon Rojo RN [facility] Work Phone: Comment on above: Patient Position: Sitting; Cuff Location : Left Arm; Cuff Size: Large 05-11-2009 11:47-0400 BP Systolic 138 mm[Hg] Sheldon Rojo RN [facility] Work Phone: Comment on above: Patient Position: Sitting; Cuff Location : Left Arm; Cuff Size: Large 05-11-2009 11:47-0400 Pulse (Heart Rate) 80 /min Sheldon Rojo RN [facility] Work Phone: Comment on above: Pattern: Regular 05-11-2009 11:47-0400 Respiratory Rate 20 /min Sheldon Rojo RN [facility] Work Phone: Comment on above: Pattern: Unlabored 05-11-2009 11:47-0400 Weight 0.01 kg Cira Ku [facility] Work Phone: 09-21-2008 08:39-0400 Body weight 43.1 kg ROBYN Porfirio LATHAM [facility] Work Phone: 09-21-2008 08:39-0400 BP Diastolic 88 mm[Hg] ROBYN Porfirio LATHAM [facility] Work Phone: Comment on above: Patient Position: Sitting; Cuff Location : Left Arm; Cuff Size: Standard 09-21-2008 08:39-0400 BP Systolic 124 mm[Hg] ROBYN Monroy LPN [facility] Work Phone: Comment on above: Patient Position: Sitting; Cuff Location : Left Arm; Cuff Size: Standard 09-21-2008 08:39-0400 Head Circumference 0 cm Cira Ku [facility] Work Phone: 09-21-2008 08:39-0400 Head Occipital-frontal circumference 0 cm [facility] Work Phone: 09-21-2008 08:39-0400 Height 0 cm ROBYN Monroy [employer] [facility] Work Phone: 09-21-2008 08:39-0400 Pulse (Heart Rate) 78 /min ROBYN Monroy [facility] Work Phone: Comment on above: Pattern: Irregular 09-21-2008 08:39-0400 Respiratory Rate 16 /min ROBYN Monroy [facility] Work Phone: Comment on above: Pattern: Unlabored 09-21-2008 08:39-0400 [facility] 43.[facility] Work Phone: 08-02-2008 08:08-0400 Body Temperature 98.2 [degF] [facility] Work Phone: Comment on above: Method: Oral 08-02-2008 08:08-0400 Body weight 42.35 kg Yessenia [facility] Work Phone: 08-02-2008 08:08-0400 BP Diastolic 62 mm[Hg] [facility] Work Phone: Comment on above: Patient Position: Sitting; Cuff Location : Left Arm; Cuff Size: Standard 08-02-2008 08:08-0400 BP Systolic 118 mm[Hg] [facility] Work Phone: Comment on above: Patient Position: Sitting; Cuff Location : Left Arm; Cuff Size: Standard 08-02-2008 08:08-0400 Head Circumference 0 [facility] Work Phone: 08-02-2008 08:08-0400 Head Occipital-frontal circumference 0 cm [facility]; [facility] Work Phone: 08-02-2008 08:08-0400 Height 0 cm Yessenia Aviles [facility] Work Phone: 08-02-2008 08:08-0400 Pulse (Heart Rate) 84 /min Yessenia Aviles [facility] Work Phone: Comment on above: Pattern: Regular 08-02-2008 08:08-0400 Respiratory Rate 16 /min Yessenia Aviles [facility] Work Phone: Comment on above: Pattern: Unlabored 08-02-2008 08:08-0400 Weight 42.35 kg Cira Ku [facility] Work Phone: 05-08-2008 15:16-0400 Body weight 0 kg ROBYN Monroy [facility] Work Phone: 05-08-2008 15:16-0400 BP Diastolic 70 mm[Hg] ROBYN Monroy [facility] Work Phone: Comment on above: Patient Position: Sitting; Cuff Location : Left Arm; Cuff Size: Standard 05-08-2008 15:16-0400 BP Systolic 116 mm[Hg] ROBYN Monroy [facility] Work Phone: Comment on above: Patient Position: Sitting; Cuff Location : Left Arm; Cuff Size: Standard 05-08-2008 15:16-0400 Head Circumference 0 cm Cira Ku [facility] Work Phone: 05-08-2008 15:16-0400 Head Occipital-frontal circumference 0 cm ROBYN Monroy [facility]; [facility] Work Phone: 05-08-2008 15:16-0400 Height 0 cm ROBYN Monroy [facility] Work Phone: 05-08-2008 15:16-0400 Pulse (Heart Rate) 78 /min ROBYN Monroy [facility] Work Phone: Comment on above: Pattern: Irregular 05-08-2008 15:16-0400 Respiratory Rate 16 /min ROBYN Monroy [facility] Work Phone: Comment on above: Pattern: Unlabored 05-08-2008 15:16-0400 Weight 0 kg Cira Ku [facility] Work Phone: 04-24-2008 15:04-0500 Body weight 44.02 kg ROBYN Monroy LPN [facility] Work Phone: 04-24-2008 15:04-0500 BP Diastolic 80 mm[Hg] ROBYN Monroy LPN [facility] Work Phone: Comment on above: Patient Position: Sitting; Cuff Location : Left Arm; Cuff Size: Standard 04-24-2008 15:04-0500 BP Systolic 122 mm[Hg] ROBYN Monroy LPN [facility] Work Phone: Comment on above: Patient Position: Sitting; Cuff Location : Left Arm; Cuff Size: Standard 04-24-2008 15:04-0500 Head Circumference 0 cm Cira Ku [facility] Work Phone: 04-24-2008 15:04-0500 Head Occipital-frontal circumference 0 cm ROBYN Monroy LPN [facility]; [facility] Work Phone: 04-24-2008 15:04-0500 Height 0 cm ROBYN Monroy LPN [facility] Work Phone: 04-24-2008 15:04-0500 Pulse (Heart Rate) 74 /min ROBYN Monroy LPN [facility] Work Phone: Comment on above: Pattern: Irregular 04-24-2008 15:04-0500 Respiratory Rate 16 /min ROBYN Monroy LPN [facility] Work Phone: Comment on above: Pattern: Unlabored 04-24-2008 15:04-0500 Weight 44.02 kg Cira Ku [facility] Work Phone: Encounters Encounter Date Encounter Type Care Provider Facility Start: 01-03-2025 ambulatory Ciralowell Ku Facilit y:[facility] Start: 12-22-2024 End: 12-23-2024 ambulatory Cira Ku Facility:[facility] Start: 10-31-2024 End: 10-31-2024 Patient encounter procedure Lissette Curiel MD Work Phone: Cardiology Comment on above: Takotsubo cardiomyop athy (Primary Dx); SVT (supraventricular tachycardia) (HCC); Labile hypertension; Palpitations; Coronary vasospasm Start: 10-31-2024 End: 11-01-2024 ambulatory LISSETTE CURIEL Facility:[facility] Start: 10-17-2024 ambulatory Cira Ku Facilit y:[facility] Start: 10-12-2024 Non-patient / Non-visit Dr. Kesha Chavarria MD -[facility] Work Phone: Start: 10-12-2024 End: 10-18-2024 Telephone encounter Lissette Curiel MD Work Phone: Cardiology Comment on above: Patient Update; [facility]ce nt admission [facility] Start: 10-12-2024 ambulatory Cira Ku Facilit y:[facility] Start: 10-12-2024 Non-patient / Non-visit Dr. Nova olivares MD -[facility] Start: 10-11-2024 End: 10-12-2024 ambulatory Timothy Baird Facility:[facility] Start: 10-11-2024 End: 10-12-2024 Evaluation and management of inpatient Dr. Timothy Baird DO -[facility] Work Phone: Start: 10-11-2024 End: 10-12-[address] Cira Ku DO Work Phone: -[facility] Start: 10-11-[address] [facility] Start: 10-11-2024 Non-patient / Non-visit Dr. Nova olivares MD -[facility] Start: 08-03-2024 ambulatory Self Referred Facility: [facility] Start: 07-04-2024 End: 07-07-2024 Telephone encounter Lissette Curiel MD Work Phone: Cardiology Comment on above: Patient Question Start: 06-30-2024 End: 07-23-2024 Discharged Recurring Self Referred -[facility] Work Phone: Start: 06-30-2024 End: 07-23-[address] Cira Ku DO Work Phone: [facility] Work Phone: Start: 01-11-2024 End: 01-11-2024 ambulatory LISSETTE CURIEL Facility:[facility] Start: 01-11-2024 End: 01-11-2024 Patient encounter procedure Lissette Curiel MD Work Phone: Cardiology Comment on above: Takotsubo cardiomyop athy (Primary Dx); Labile hypertension; Coronary vasospasm (HCC) Start: 08-06-2023 End: 08-06-2023 Patient encounter procedure Tamiko Graf MD Work Phone: OB/Gynecology Comment on above: Encounter for gyneco logical examination (general) (routine) without abnormal findings (Primary Dx); Encounter for screening mammogram for breast cancer Start: 08-06-2023 End: 08-06-2023 Patient encounter status Tamiko Graf MD Work Phone: [facility] Start: 06-09-2023 Non-patient / Non-visit Dr. Bhavani Ku Work Phone: [facility] Start: 06-09-2023 Non-patient / Non-visit Dr. Bhavani Ku Work Phone: [facility] Start: 06-09-2023 End: 06-09-[address] Cira Ku Work Phone: [facility] Work Phone: Start: 06-09-2023 End: 06-09-[address] Cira Ku Work Phone: [facility]-Cardiovascular Services Work Phone: Start: 06-02-[address] Ayla Ku Work Phone: [facility]-Physical Therapy Work Phone: Start: 01-12-2023 End: 01-12-2023 Patient encounter procedure Lissette Curiel MD Work Phone: Cardiology Comment on above: Screening for ischem ic heart disease (Primary Dx); Coronary vasospasm (HCC); Takotsubo cardiomyopathy; Labile hypertension; Palpitations; Dilated cardiomyopathy (HCC) Start: 01-05-2023 End: 01-05-[address] Cira Ku Work Phone: [facility] Work Phone: Start: 01-05-2023 End: 01-05-[address] Cira Ku Work Phone: [facility] Work Phone: Start: 12-17-2022 End: 12-17-2022 ambulatory [facility] Work Phone: Start: 12-17-2022 End: 12-17-2022 Patient encounter procedure [facility]-Outpatient Breast Imaging Work Phone: Start: 07-02-2022 End: 07-02-2022 Crialowell Delgadoon DO Work Phone: [facility] Start: 06-26-2022 ambulatory Ciralowell Ku DO [facility] Start: 06-26-2022 End: 06-26-2022 Office outpatient visit 15 minutes Cira Elmira DO Work Phone: [facility] Start: 06-16-2022 End: 06-16-2022 Office outpatient visit 25 minutes Cira Elmira DO Work Phone: [facility] Start: 06-16-2022 Ciralowell Delgadoo n DO Work Phone: [facility] Start: 06-09-2022 Telephone encounter Lissette Curiel MD Work Phone: Cardiology Comment on above: Appointment Start: 03-17-2022 End: 03-17-2022 Patient encounter procedure Cira Ku DO Work Phone: [facility] Start: 12-12-2021 End: 12-12-2021 Office outpatient visit 25 minutes Cira Elmira DO Work Phone: [facility] Start: 11-06-2021 End: 11-06-[address] Cira Ku Work Phone: [facility] Start: 10-10-2021 End: 10-10-2021 Cira Ku DO Work Phone: [facility] Start: 07-16-2021 End: 07-16-[address] Cira Ku Work Phone: [facility]-Laboratory, Specimen Start: 07-16-2021 End: 07-16-[address] Cira Ku Work Phone: [facility] Start: 05-27-2021 Telephone encounter Tamiko trevino MD Work Phone: OB/Gynecology Comment on above: Patient Question Start: 05-24-2021 Telephone encounter Tamiko trevino MD Work Phone: OB/Gynecology Comment on above: Treatment Planning Start: 05-22-2021 Telephone encounter Saida Gary RN Gynecology Oncology Comment on above: Returning Patient's Call Start: 05-22-2021 End: 05-22-2021 Patient encounter procedure Tamiko Graf MD Work Phone: OB/Gynecology Comment on above: Endometrial cancer ( HCC) (Primary Dx); Screening for cancer; Vaginal bleeding Start: 04-25-2021 Review Cira june DO Work Phone: [facility] Start: 04-24-2021 End: 04-25-2021 Office outpatient visit 5 minutes Cira Ku DO Work Phone: [facility] Start: 04-15-2021 End: 04-15-2021 Office outpatient visit 10 minutes Cira Ku DO Work Phone: [facility] Start: 04-12-2021 End: 04-12-[address] Cira Ku Work Phone: [facility] Start: 03-14-2021 End: 03-14-2021 Office outpatient visit 15 minutes Cira Elmira DO Work Phone: [facility] Start: 02-11-2021 End: 02-11-2021 Annotation/Addendum Cira Elmira DO Work Phone: [facility] Start: 02-11-2021 End: 02-11-2021 Cira Elmira DO Work Phone: [facility] Start: 02-11-2021 End: 02-11-2021 Office outpatient visit 15 minutes Cira Elmira DO Work Phone: [facility] Start: 11-02-2020 End: 11-02-2020 Office outpatient visit 25 minutes Cira Elmira DO Work Phone: [facility] Start: 10-25-2020 End: 10-26-2020 Office outpatient visit 15 minutes Cira Elmira DO Work Phone: [facility] Start: 10-22-2020 End: 10-24-2020 Office outpatient visit 5 minutes Cira Elmira DO Work Phone: [facility] Start: 08-08-2020 End: 08-08-2020 Office outpatient visit 25 minutes Cira Elmira DO Work Phone: [facility] Start: 08-08-2020 Review Cira Fearo n DO Work Phone: [facility] Start: 07-10-2020 End: 07-10-2020 Annotation/Addendum Cira Elmira DO Work Phone: [facility] Start: 07-10-2020 End: 07-10-2020 Cira Elmira DO Work Phone: [facility] Start: 05-09-2020 End: 05-09-2020 Office outpatient visit 15 minutes Cira Elmira [facility] Start: 05-04-2020 End: 05-04-2020 Office outpatient visit 10 minutes Cira Lemira [facility] Start: 04-06-2020 End: 04-06-2020 Office outpatient visit 15 minutes Cira Elmira [facility] Start: 02-29-2020 End: 02-29-2020 Annotation/Addendum [facility] Start: 02-29-2020 End: 02-29-2020 Cira Ku DO Work Phone: [facility] Start: 02-29-2020 End: 02-29-2020 Lab Order [facility]a [facility] Start: 02-29-2020 End: 02-29-2020 Cira Ku DO Work Phone: [facility] Start: 10-13-2019 End: 10-13-2019 Office outpatient visit 15 minutes Cira Ku [facility] Start: 10-13-2019 Review Cira Ku [facility] Start: 10-03-2019 End: 10-03-2019 Office outpatient visit 25 minutes Cira Ku [facility] Start: 10-03-2019 Review Cira Ku [facility] Start: 09-19-2019 End: 09-19-2019 Phone Encounter [facility]a [facility] Start: 09-19-2019 End: 09-19-2019 Cira Ku DO Work Phone: [facility] Start: 08-24-2019 End: 08-24-2019 Annotation/Addendum Cira Ku [facility] Start: 08-24-2019 End: 08-24-2019 Cira Ku DO Work Phone: [facility] Start: 08-17-2019 End: 08-17-2019 Office outpatient visit 25 minutes Cira Ku [facility] Start: 11-15-2018 End: 11-15-2018 Office outpatient visit 15 minutes Cira Ku [facility] Start: 10-20-2018 End: 10-20-2018 Annotation/Addendum Cira Ku [facility] Start: 10-20-2018 End: 10-20-2018 Cira Ku DO Work Phone: [facility] Start: 10-01-2018 End: 10-01-2018 Patient encounter procedure Sheldon Rojo RN [facility]; [facility] Work Phone: Start: 10-01-2018 End: 10-01-2018 Periodic preventive med est patient 65yrs& older Cira Ku [facility] Start: 09-10-2018 End: 09-10-2018 Phone Encounter Cira Elmira [facility] Start: 09-10-2018 End: 09-10-2018 Cira Ku DO Work Phone: [facility] Start: 09-09-2018 End: 09-09-2018 Office outpatient visit 15 minutes Cira Ku [facility] Start: 09-09-2018 Review Cira Ku [facility] Start: 08-13-2018 End: 08-13-2018 Phone Encounter Cira Elmira [facility] Start: 08-13-2018 End: 08-13-2018 Cira Elmira DO Work Phone: [facility] Start: 08-12-2018 End: 08-12-2018 Lab Order Cira Ku [facility] Start: 08-12-2018 End: 08-12-2018 Cira Elmira DO Work Phone: [facility] Start: 08-12-2018 End: 08-12-2018 Office outpatient visit 15 minutes Cira Ku [facility] Start: 05-28-2018 End: 05-28-2018 Office outpatient visit 15 minutes Cira Ku [facility] Start: 01-20-2018 End: 01-20-2018 Phone Encounter Cira Elmira [facility] Start: 01-20-2018 End: 01-20-2018 Ciradeepa Ku DO Work Phone: [facility] Start: 08-13-2017 Ambulatory ANDRAE MCGEE Facility [facility] Start: 07-15-2017 End: 07-15-2017 Office outpatient visit 5 minutes Cira Ku [facility] Start: 07-14-2017 End: 07-15-2017 Office outpatient visit 25 minutes Cira Ku [facility] Start: 05-08-2017 End: 05-08-2017 Office outpatient visit 15 minutes Cira Ku [facility] Start: 04-30-2017 End: 04-30-2017 Phone Encounter Cira Elmira [facility] Start: 04-30-2017 End: 04-30-2017 Cira Ku DO Work Phone: [facility] Start: 04-22-2017 End: 04-22-2017 Office outpatient visit 15 minutes Cira Ku [facility] Start: 11-14-2016 End: 11-14-2016 Office outpatient visit 25 minutes Cira Ku [facility] Start: 10-31-2016 End: 10-31-2016 Lab Order Cira Ku [facility] Start: 10-31-2016 End: 10-31-2016 Cira Ku DO Work Phone: [facility] Start: 09-08-2016 End: 09-08-2016 Office outpatient visit 15 minutes Cira Ku [facility] Start: 09-03-2016 End: 09-03-2016 Phone Encounter Cira Ku [facility] Start: 09-03-2016 End: 09-03-2016 Cira Ku DO Work Phone: [facility] Start: 09-01-2016 End: 09-01-2016 Phone Encounter Cira Ku [facility] Start: 09-01-2016 End: 09-01-2016 Cira Ku DO Work Phone: [facility] Start: 08-28-2016 End: 08-31-2016 Office outpatient visit 15 minutes Cira Ku [facility] Start: 04-24-2016 End: 04-24-2016 Office outpatient visit 15 minutes Cira Ku [facility] Start: 03-21-2016 End: 03-21-2016 Patient encounter procedure Cira Ku [facility] Start: 03-21-2016 End: 03-21-2016 Cira Ku DO Work Phone: [facility] Start: 01-30-2016 End: 01-30-2016 Phone Encounter [facility]a [facility] Start: 01-30-2016 End: 01-30-2016 Cira Elmira DO Work Phone: [facility] Start: 08-03-2015 End: 08-03-2015 Patient encounter procedure Cira Ku DO Work Phone: [facility] Start: 08-03-2015 End: 08-03-2015 Periodic preventive med est patient 65yrs& older Cira Ku [facility] Start: 07-02-2015 End: 07-02-2015 Office outpatient visit 25 minutes Cira Ku [facility] Start: 09-19-2014 End: 09-19-2014 Refill Request Cira Ku [facility] Start: 09-19-2014 End: 09-19-2014 Cira Ku DO Work Phone: [facility] Start: 09-16-2013 End: 09-16-2013 Office outpatient visit 25 minutes Cira Ku [facility] Start: 09-16-2013 End: 09-16-2013 Physical examination Cira Ku DO Work Phone: [facility] Start: 09-01-2013 End: 09-01-2013 Phone Encounter [facility]a [facility] Start: 09-01-2013 End: 09-01-2013 Cira Ku DO Work Phone: [facility] Start: 08-31-2013 End: 09-08-2013 Phone Encounter [facility]a Ku [facility] Start: 08-31-2013 End: 09-08-2013 Cira Ku DO Work Phone: [facility] Start: 08-25-2013 End: 08-25-2013 Lab Order Cira Ku [facility] Start: 08-25-2013 End: 08-25-2013 Cira Ku DO Work Phone: [facility] Start: 10-26-2012 End: 10-26-2012 Patient encounter procedure Cira Ku [facility] [facility] Start: 10-26-2012 End: 10-26-2012 Cira Ku DO Work Phone: [facility] Start: 09-27-2012 End: 09-27-2012 Lab Order [facility]a [facility] Start: 09-27-2012 End: 09-27-2012 Cira Ku DO Work Phone: [facility] Start: 08-18-2012 End: 08-18-2012 Phone Encounter Cira Delgadoon [facility] Start: 08-18-2012 End: 08-18-2012 Cira Ku DO Work Phone: [facility] Start: 08-17-2012 End: 08-17-2012 Phone Encounter Cira Ku [facility] Start: 08-17-2012 End: 08-17-2012 Cira Ku DO Work Phone: [facility] Start: 11-27-2011 End: 11-27-2011 Patient encounter procedure Cira Ku [facility] Start: 11-27-2011 End: 11-27-2011 Physical examination Cira Ku DO Work Phone: [facility] Start: 11-27-2011 End: 11-27-2011 Cira Ku DO Work Phone: [facility] Start: 10-18-2010 End: 10-18-2010 Patient encounter procedure Cira Ku [facility] Start: 10-18-2010 End: 10-18-2010 Cira Ku DO Work Phone: [facility] Start: 08-30-2010 End: 08-30-2010 Phone Encounter [facility]a [facility] Start: 08-30-2010 End: 08-30-2010 Cira Ku DO Work Phone: [facility] Start: 08-22-2010 End: 08-22-2010 Annotation/Addendum Cira Ku [facility] Start: 08-22-2010 End: 08-22-2010 Cira Ku DO Work Phone: [facility] Start: 07-23-2010 End: 07-23-2010 Patient encounter procedure Cira Ku [facility] Start: 07-23-2010 End: 07-23-2010 Cira Ku DO Work Phone: [facility] Start: 06-11-2010 End: 06-11-2010 Patient encounter procedure Cira Ku [facility] Start: 06-11-2010 End: 06-11-2010 Cira Ku DO Work Phone: [facility] Start: 06-07-2010 End: 06-07-2010 Phone Encounter [facility]a [facility] Start: 06-07-2010 End: 06-07-2010 Cira Elmira DO Work Phone: [facility] Start: 05-30-2010 End: 05-30-2010 Phone Encounter Cira Ku [facility] Start: 05-30-2010 End: 05-30-2010 Cira Elmira DO Work Phone: [facility] Start: 05-30-2010 End: 05-30-2010 Phone Encounter Cira Ku [facility] Start: 05-30-2010 End: 05-30-2010 Cira Elmira DO Work Phone: [facility] Start: 05-06-2010 End: 05-06-2010 Annotation/Addendum Cira Ku [facility] Start: 05-06-2010 End: 05-06-2010 Cira Elmira DO Work Phone: [facility] Start: 04-26-2010 End: 04-26-2010 Phone Encounter Cira Ku [facility] Start: 04-26-2010 End: 04-26-2010 Cira Elmira DO Work Phone: [facility] Start: 04-22-2010 End: 04-22-2010 Patient encounter procedure Cira Ku [facility] Start: 04-22-2010 End: 04-22-2010 Cira Elmira DO Work Phone: [facility] Start: 09-25-2009 End: 09-25-2009 Patient encounter procedure Cira Ku [facility] Start: 09-25-2009 End: 09-25-2009 Cira Elmira DO Work Phone: [facility] Start: 08-02-2009 End: 08-02-2009 Phone Encounter [facility]a Ku [facility] Start: 08-02-2009 End: 08-02-2009 Cira Elmira DO Work Phone: [facility] Start: 05-11-2009 End: 05-11-2009 Phone Encounter Cira Ku [facility] Start: 05-11-2009 End: 05-11-2009 Cira Elmira DO Work Phone: [facility] Start: 05-11-2009 End: 05-11-2009 Patient encounter procedure Cira Ku [facility] Start: 05-11-2009 End: 05-11-2009 Cira Ku DO Work Phone: [facility] Start: 01-29-2009 End: 01-29-2009 Phone Encounter Cira Ku [facility] Start: 01-29-2009 End: 01-29-2009 Cira Ku DO Work Phone: [facility] Start: 09-21-2008 End: 09-21-2008 Patient encounter procedure Cira Ku [facility] Start: 09-21-2008 End: 09-21-2008 Cira Ku DO Work Phone: [facility] Start: 08-30-2008 End: 08-30-2008 Historical Summary Cira Ku [facility] Start: 08-30-2008 End: 08-30-2008 Cira Ku DO Work Phone: [facility] Start: 08-02-2008 End: 08-02-2008 Office outpatient visit 25 minutes Cira Ku [facility] Start: 05-08-2008 End: 05-08-2008 Patient encounter procedure Cira Ku [facility] Start: 05-08-2008 End: 05-08-2008 Cira Ku DO Work Phone: [facility] Start: 04-24-2008 End: 04-24-2008 Patient encounter procedure Cira Ku [facility] Start: 04-24-2008 End: 04-24-2008 Cira Ku DO Work Phone: [facility] Start: 04-24-2008 End: 04-24-2008 Historical Summary Cira Ku [facility] Start: 04-24-2008 End: 04-24-2008 Cira Ku DO Work Phone: [facility] Patient encounter procedure Emily Marion LPN [facility]; [facility] Work Phone: Comment on above: pt gets mri bc of mejía per dense breast but then when tried to sched said would need dye and cant do dye Patient encounter procedure Emily Marion [facility]; [facility] Work Phone: Comment on above: pt gets mri bc of mejía per dense breast but then when tried to sched said would need dye and cant do dye Patient encounter procedure Chanelleelier Rizvi [facility]; [facility] Work Phone: Comment on above: pt gets mri bc of mejía per dense breast but then when tried to sched said would need dye and cant do dye Patient encounter procedure Fabi Chamorro [place] [facility]; [facility] Work Phone: Comment on above: pt gets mri bc of mejía per dense breast but then when tried to sched said would need dye and cant do dye Patient encounter procedure Earnestine Claudio [facility]; [facility] Work Phone: Comment on above: pt gets mri bc of mejía per dense breast but then when tried to sched said would need dye and cant do dye Patient encounter procedure Dhruv Cornejo [facility]; [facility] Work Phone: Patient encounter procedure Amol Michel [facility]; [facility] Work Phone: Patient encounter procedure Amol Michel [facility]; [facility] Work Phone: End: 06-26-2015 Physical examination ROBYN Porfirio [facility]; [facility] Work Phone: Comment on above: amp 7-14. she does m ammo pt refuse yearly doing every 3-4 years last 2009 wants to do next year. aware could have breast cancer miss. colonscopy 2013 good due 5 with fmx. refuse immunization. Procedures Date Procedure Procedure Detail Performing Clinician Start: 10-12-[address] Cira Ku DO Work Phone: Start: 10-11-2024 CT cervical spine without contrast Dr. Cira Ku DO Work Phone: Start: 10-11-2024 CT of head without contrast Dr. Cira Ku DO Work Phone: Start: 10-11-2024 Plain chest X-ray Dr. Cira Ku DO Work Phone: Start: 10-11-[address] Cira Ku DO Work Phone: Start: 01-05-[address] Cira Ku Work Phone: Start: 12-17-2022 Screening mammography Start: 12-17-2022 End: 12-17-2022 Procedure Note: See Note; NOTES: [facility] Imaging Services [address] [place] [address] SCRN MAMM (CAD)W/DONTE BILAT MR#: [id number] Acct: [id number] Name: BHARATI HILLIARD Rep #: [id number] : 1940 F 82 From: Alvarez johnson MD PCP: Dr. Cira Ku DO Status: REG CLI Study: SCRN MAMM (CAD)W/DONTE BILAT Date of Exam: 11/24 07/15 Exam# [id number] Ordering Dr: Cira Ku DO :[id number] MAMMOGRAPHY - BILATERAL SCREENING REASON FOR EXAM: Female, 82 years old. Routine annual screening examination. PERTINENT HISTORY: Non-contributory. Remote left excisional breast biopsy. TECHNIQUE: Digital bilateral breast donte (3D mammographic acquisition) in the CC and MLO projections. 2-D mediolateral oblique (MLO) and craniocaudad (CC) views of both breasts were obtained. CAD: Full Field Digital Mammography with Computer Added Detection was performed. COMPARISON: Comparison is made with prior study dated October 29, 2018 and February 20, 2010. FINDINGS: Breast Composition: The breasts are extremely dense, which lowers the sensitivity of mammography. There are no dominant masses or suspicious calcifications. No other significant abnormalities are identified. There has been no significant change since the prior study. BI/SCRN MAMM (CAD)W/DONTE BILAT IMPRESSION: Stable bilateral screening mammogram. Yearly follow-up mammogram recommended. (A) ASSESSMENT CATEGORY: BIRADS Category 1: Negative. A letter regarding these results will be sent to the patient by the facility within 30 days. Approximately 10% of breast cancers are not detected by mammography. A normal mammogram should not delay biopsy of a clinically suspicious abnormality. [id number] Electronically Signed: Alvarez Wilson MD at 9:23 EDT , CC: Dr. Cira Ku DO Salvage Repairer: Signed Cira Ku DO Work Phone: Start: 07-31-2022 End: 07-31-2022 Procedure Note: See Note; NOTES: [facility] [address] [place] [address] Foot min 3 Views MR#: [id number] Acct: [id number] Name: BHARATI HILLIARD Rep #: [id number] : 1940 F 82 From: Gregory elizabeth MD PCP: Dr. Cira Ku DO Status: DEP AMB Study: Foot min 3 Views Date of Exam: 07/31/22 Exam# [id number] Ordering Dr: Alyx Ocampo DPMely STUDY: X-RAY - LEFT FOOT CLINICAL: Female, 82 years old. PAIN -- ON LATERAL,ELEVATE HALLUX TECHNIQUE: 3 view(s) of the foot. COMPARISON: None. FINDINGS: Normal talus, calcaneus, and tarsal bones. Normal visualized subtalar, talonavicular, calcaneocuboid, tarsal and tarsometatarsal articulations. Normal metatarsi. Normal metatarsophalangeal joint of the great toe. Normal tibial and fibular sesamoid bones. Normal interphalangeal joint of the great toe. Normal phalanges of the great toe. Normal second through fifth metatarsophalangeal joints. Normal interphalangeal joints and phalanges of the lesser toes. The soft tissue structures are unremarkable. There is no demonstrated fracture. RAD/Foot min 3 Views IMPRESSION: Normal x-ray examination of the foot. Electronically Signed: Gregory Heart MD at 19:41 EDT , CC: CESAR Ocampo; Dr. Cira Ku DO Salvage Repairer: Signed Cira Ku DO Work Phone: Start: 11-06-2021 End: 11-06-2021 Procedure Note: See Note; NOTES: [facility] [place] [address] OFFICE VISIT Date of Service: 11/06/21 MR#: [id number] Acct: [id number] Name: BHARATI HILLIARD Rep #: [id number] : 1940 Provider: Dr. Alex ballesteros MD Age/Sex: 81/F [place] [facility] [place] Status: Signed [facility] History of Present Illness Details: This is an 81 year-old white female with a past cardiovascular history which is included underlying Takotsubo syndrome, SVT, and hypertension originally followed by [facility] cardiology who continues to follow with [facility]. Overall she states she is doing well at the current time. The patient denies symptoms considered classic for angina pectoris, CHF / pulmonary edema (with respect to orthopnea / PND), ongoing palpitations, or near syncope / syncope. The patient denies ongoing peripheral pitting edema. She states she has not required any additional cardiovascular testing since her last visit. She brings with her laboratory work which was performed in September of this year. At that time her cholesterol was 225 with an LDL of 123 and an HDL of 88 and a triglyceride level 84. She does states she has been eating more breakfast protein in the way of breakfast sausage to try and keep her protein levels up. However she states she is concerned about her lipid levels and may now be adjusting her morning breakfast protein supplements. 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: No Accompanied by: Self Allergies cortisone Allergy (Severe, Verified 11/06/21 11:17) Throat swelling nitrofurantoin [From Macrobid] Allergy (Severe, Verified 11/06/21 11:17) Irregular HB, vision changes, diaphoresis erythromycin base Allergy (Intermediate, Verified 11/06/21 11:17) Unknown meperidine [From Demerol] Allergy (Intermediate, Verified 11/06/21 11:17) Unknown Iodinated Contrast Media [Iodinated Contrast Media - Oral and] Allergy (Verified 11/06/21 11:17) Rash iodine Allergy (Verified 11/06/21 11:17) Rash Penicillins Allergy (Verified 11/06/21 11:17) Rash Sulfa (Sulfonamide Antibiotics) Allergy (Verified 11/06/21 11:17) Rash contrast Allergy (Intermediate, Uncoded 11/06/21 11:17) Rash COBEX Allergy (Uncoded 11/06/21 11:17) Anaphylaxis immunizations Allergy (Uncoded 11/06/21 11:17) Unknown Medications tumeric 100 mg-sae 150 mg-olive 50 mg-oreg 150 mg-caprylate capsule cap PO 11/01/20 [History Confirmed 11/06/21] ascorbic acid (vitamin C) 1,000 mg tablet 1 g PO DAILY 12/03/20 [History Confirmed 11/06/21] cholecalciferol (vitamin D3) 50 mcg (2,000 unit) capsule 50 mcg PO DAILY 12/03/20 [History Confirmed 11/06/21] mecobalamin (vitamin B12) 1,000 mcg chewable tablet 1,000 mcg PO DAILY 12/03/20 [History Confirmed 11/06/21] lactobacillus combination no.9 4 billion cell capsule (Adult 50 Plus Probiotic) 4,000 mmu cells PO DAILY 04/12/21 [History Confirmed 11/06/21] selenium 200 mcg tablet 200 mcg PO DAILY 04/12/21 [History Confirmed 11/06/21] metoprolol tartrate 25 mg tablet 12.5 mg PO QHS #45 tabs 05/09/21 [Rx Confirmed 11/06/21] ascorbic acid 100 mg-elderberry fruit 50 mg chewable tablet 1 tab PO DAILY 11/06/21 [History Confirmed 11/06/21] lorazepam 0.5 mg tablet 0.25 mg PO DAILY PRN anxiety 11/06/21 [History Confirmed 11/06/21] [facility] Medical History Abrasion of knee, bilateral Anxiety and depression Cataract Cystadenoma Elevated LFTs Elevated troponin 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 History of left heart catheterization (08/10/19) History of non-ST elevation myocardial infarction (NSTEMI) History of supraventricular tachycardia History of uterine cancer History of uterine cancer Hypothyroidism IBS (irritable bowel syndrome) Personal history of colonic polyps Psoriasis Takotsubo cardiomyopathy Vitamin D deficiency Surgical History History of appendectomy History of benign breast tumor History of bilateral cataract extraction History of bilateral oophorectomy History of section History of colonoscopy History of hysterectomy History of tonsillectomy Family History Father , Age 90 Cancer prostate CAD (coronary artery disease) Pacemaker COPD (chronic obstructive pulmonary disease) Brother CAD (coronary artery disease) CABG x 5 Hypertension Heart disease Mother CAD (coronary artery disease) CABG Heart disease CVA (cerebral vascular accident) Cancer rectal Social History Smoking Status: Never smoker alcohol intake: never substance use type: does not use caffeine: No what type of physical activity do you participate in: walking and weight training frequency: daily seatbelt use: always do you feel safe at home: Yes additional social history: - retired ROS Const Const: Negative for fatigue, weakness, body ache, fever(s), headache(s), chills, frequent falls, night sweats, daytime sleepiness, difficulty sleeping, excessive sweating, weight gain, weight loss, increased appetite, poor appetite, anorexia or other Eyes Eyes: Negative for blurry vision or double vision ENT ENT: Negative for headache(s), dizziness or balance problems Cardio Chest Pain: No Palpitations: No Edema: None Muscle aches with walking: None Resp Respiratory: Negative for SOB with activity, SOB at rest, SOB orthopnea SOB lying down, Cough, Coughing up blood/hemoptysis, chest congestion, pain on inspiration, snoring, stridor, wheezing, crackles, paroxysmal nocturnal dyspnea or other Musc Musc: Negative for muscle aches/ myalgia, muscle weakness, joint pain or balance problems Neuro Neuro: Positive for lightheadedness (allergy triggered); Negative for dizziness, near syncope, syncope, orthostatic symptoms, frequent falls, headache(s), weakness, confusion, memory loss, restless legs, blurry vision, double vision, vertigo, seizures, lack of coordination or other Endo Endo: Negative for fatigue or excessive sweating Cardiology Exam Const Appearance: cooperative, healthy appearing, comfortable, no acute distress, well developed and well groomed Nutritional Appearance: well nourished and thin Orientation: alert, awake and oriented x3 Head Head: normal to inspection, normocephalic and atraumatic Ears: hearing grossly normal bilaterally Nose: external nose normal Face and Sinus: face symmetric Eyes Eyelids: eyelids normal Conjunctivae: conjunctivae normal Pupils: PERRL EOM: EOM intact bilaterally Neck Neck: normal visual inspection and full ROM Carotids: normal carotid upstroke Chest Chest inspection: normal inspection of the chest, symmetric chest movement and normal respiratory effort Auscultation: Bilateral: Clear to Auscultation Cardio Palpation: normal PMI Rate: regular rate Rhythm: regular rhythm and ectopic beats Heart sounds: S1 normal and S2 normal GI GI: normal to inspection, soft and bowel sounds present Neuro General: patient alert, patient awake, patient oriented x3 and moves all extremities Skin Skin: no rashes or lesions noted Extremities Pulses: Normal: Right Radial Pulse and Left Radial Pulse Lower Extremity Edema: None: Bilateral Psych Psychological: normal affect Supplemental Info Supplemental Information Echocardiogram: 11-14-2019 Interpretation Summary Left ventricular systolic function is normal. The estimated ejection fraction is 65 %. Anterior leaflet diffuse mitral valve thickening. The mitral valve chordae are thickened and/or calcified. Mild mitral valve prolapse. Mild (1+) mitral valve insufficiency. Mild tricuspid valve insufficiency. Mild diffuse aortic valve thickening. Trivial aortic valve insufficiency. Mild (1+) eccentric pulmonic valve insufficiency. Right ventricular systolic pressure estimated to be 30 mmHg. Diastolic function is indeterminate. Echocardiogram: 11/20/2020 Interpretation Summary The study was technically difficult. Left ventricular systolic function is normal. The estimated ejection fraction is 65 %. Mild mitral valve prolapse. Mild diffuse mitral valve thickening. Trivial mitral valve insufficiency. Mild to moderate (1-2+) eccentric tricuspid valve insufficiency. Trivial aortic valve insufficiency. Trivial pericardial effusion. There are no echocardiographic indications of cardiac tamponade. Right ventricular systolic pressure estimated to be 38 mmHg. Transmitral diastolic flow velocities suggest diastolic dysfunction (pseudonormal pattern). Cardiac catheterization: 08-10-2019 Supplemental Information CONCLUSIONS Non obstructive CAD. Takotsubo cardiomyopathy. EF is 35%. No significant or MR RECOMMENDATIONS DESCRIPTION OF PROCEDURE The patient arrived to the procedure lab. The risks and benefits of the procedure as well as a full description of our services here and current unavailability of surgical backup were fully explained to the patient and/or their significant other prior to the catheterization. The Timeout was completed, verifying the correct patient and procedure. The patient's procedural site was prepped and draped in the usual fashion. Local anesthetic was given subcutaneously to right radial region with Lidocaine 2%. Using a modified Seldinger technique, arterial access was obtained via the right radial artery, a 6Fr sheath was inserted. Left Coronary Artery selective angiography was performed in multiple views using a 5 Fr. JL3.5 catheter. Left Ventriculography was performed in GUZMAN projection using a 5 Fr. JR 4. LV to AO pullback pressures were then recorded. Right Coronary Artery selective angiography was then performed in multiple views using a 5 Fr. JR 4 catheter.The arterial sheath was pulled and a TR Band was applied for hemostasis w/ 13ml air CORONARY ANGIOGRAPHY DOMINANCE: Right Dominant LEFT HEART ASSESSMENT Left Ventricular Ejection Fraction: by LV Gram 35 % Severe hypokinesis to akinesis of the mid LV with normal contraction of the apex and base of the LV consistent with apical sparing Takotsubo cardiomyopathy LEFT MAIN: Mild luminal irregularities LEFT ANTERIOR DESCENDING ARTERY: Mild luminal irregularities CIRCUMFLEX ARTERY: Mild luminal irregularities RIGHT CORONARY ARTERY: Mild luminal irregularities VALVE FINDINGS: No Aortic Valve Stenosis No Mitral Insufficency Labs: LDL Cholesterol 68 mg/dL (0-130) HDL Cholesterol 90 mg/dL (40-) Triglycerides 85 mg/dL (-199) VLDL Cholesterol 17 mg/dL (5-40) Diagnostics: Electrocardiogram Echocardiogram Cardiac Catheterization Chest X-Ray Pulmonary: No Data to Display Assessment and Plan Assessment and Plan (1) Takotsubo cardiomyopathy: Status: Acute Plan: She has undergone reevaluation of her left ventricular wall motion systolic function in the fall 2020. Her echocardiogram is noted and it was reviewed with her. Her overall systolic function appears to remain preserved. At the current time she will continue outpatient follow-up. (2) History of supraventricular tachycardia: Status: Chronic Plan: There is been no obvious recurrence of any supraventricular or ventricular dysrhythmias. She will continue her current therapy and follow-up. (3) Essential hypertension: Status: Chronic Plan: She is going to continue her low-dose beta-kadi therapy. She will monitor her blood pressures for any significant continued low pressures are elevated pressures that warrant further adjustment. (4) HLD (hyperlipidemia): Status: Acute Plan: Her lipid labs were discussed with her. She is going to reassess her diet with respect her breakfast protein/sausage intake. She states in the past she has used other forms of protein such as boost . She will continue to follow with her other physicians for her lipid labs. Hopefully her total cholesterol and LDL cholesterol will come under better control. Plan Details Additional Comments: Thank you for allowing me to participate in the care of your patient. Please don't hesitate to call if any issues arise. This note was generated using a voice recognition system and there may be incorrect words, spelling or punctuation that were not noted when reviewing the office note prior to saving. Follow Up: 6 Months (PFM ) COVID (Procedure Consent) Procedure Criteria Procedure Criteria: Yes Elective The surgeon/proceduralist and patient have discussed in detail the risk of exposure to and/or potential harm posed by the COVID-19 virus with having a surgery/procedure at this time versus the risk of??? delaying the surgery/procedure. It is not possible to know either the risk of delaying the surgery or procedure or chance of getting an infection with perfect accuracy, but a joint decision was made between the patient and the surgeon/proceduralist ???to proceed at this time with the scheduled surgery/procedure as indicated on the consent form. Coding Level of Care Code Off vis,est,level 3 Diagnoses Takotsubo cardiomyopathy I51.81 History of supraventricular tachycardia Z86.79 Essential hypertension I10 HLD (hyperlipidemia) E78.5 Coding Level of Care Code Off vis,est,level 3 Diagnoses Takotsubo cardiomyopathy I51.81 History of supraventricular tachycardia Z86.79 Essential hypertension I10 HLD (hyperlipidemia) E78.5 11/06/21 1155 <Electronically signed by Alex Al MD> Date Alex Al MD Cosigner Signature: Date (if applicable) CC: Dr. Cira Ku, DO Cira Ku DO Work Phone: Start: 07-16-2021 Streptococcus pyogenes Ag [Presence] in Throat Dr. Cira Ku Work Phone: Start: 07-16-2021 End: 07-16-2021 Urgent Care Visit Report Comments: See Note; NOTES: [facility] [address] [place] [address] OFFICE VISIT Date of Service: 07/16/21 MR#: [id number] Acct: [id number] Name: BHARATI HILLIARD Rep #: [id number] : 1940 Provider: PIERO Holman Age/Sex: 81/F Location[place] [facility] Status: Signed Intake Vital Signs 07/16/21 09:18 BP 180/68 H Blood Pressure Location Lt brachial Position Sitting Respiration 14 Pulse 91 Pulse Source Monitor Temp 97.5 F L Temp Source Temporal Pulse Oximetry (%) 96 Oxygen Delivery Method room air Intake Visit Reasons: COVID SCREEN/STREP TEST/SYMPTOMS Allergies cortisone Allergy (Severe, Verified 07/16/21 09:18) Throat swelling nitrofurantoin [From Macrobid] Allergy (Severe, Verified 07/16/21 09:18) Irregular HB, vision changes, diaphoresis erythromycin base Allergy (Intermediate, Verified 07/16/21 09:18) Unknown meperidine [From Demerol] Allergy (Intermediate, Verified 07/16/21 09:18) Unknown Iodinated Contrast Media [Iodinated Contrast Media - Oral and] Allergy (Verified 07/16/21 09:18) Rash iodine Allergy (Verified 07/16/21 09:18) Rash Penicillins Allergy (Verified 07/16/21 09:18) Rash Sulfa (Sulfonamide Antibiotics) Allergy (Verified 07/16/21 09:18) Rash contrast Allergy (Intermediate, Uncoded 07/16/21 09:18) Rash COBEX Allergy (Uncoded 07/16/21 09:18) Anaphylaxis immunizations Allergy (Uncoded 07/16/21 09:18) Unknown Medications lorazepam 0.5 mg tablet 0.25 mg PO DAILY tab 11/01/20 [History Confirmed 07/16/21] tumeric 100 mg-sae 150 mg-olive 50 mg-oreg 150 mg-caprylate capsule cap PO 11/01/20 [History Confirmed 07/16/21] ascorbic acid (vitamin C) 1,000 mg tablet 1 g PO DAILY tab 12/03/20 [History Confirmed 07/16/21] cholecalciferol (vitamin D3) 50 mcg (2,000 unit) capsule 50 mcg PO DAILY 12/03/20 [History Confirmed 07/16/21] mecobalamin (vitamin B12) 1,000 mcg chewable tablet 1,000 mcg PO DAILY 12/03/20 [History Confirmed 07/16/21] lactobacillus combination no.9 4 billion cell capsule 4,000 mmu cells PO DAILY 04/12/21 [History Confirmed 07/16/21] selenium 200 mcg tablet 200 mcg PO DAILY 04/12/21 [History Confirmed 07/16/21] metoprolol tartrate 25 mg tablet 12.5 mg PO QHS #45 tab 05/09/21 [Rx Confirmed 07/16/21] [facility] Medical History Abrasion of knee, bilateral Anxiety and depression Cataract Cystadenoma Elevated LFTs Elevated troponin 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 History of left heart catheterization (08/10/19) History of non-ST elevation myocardial infarction (NSTEMI) History of supraventricular tachycardia History of uterine cancer History of uterine cancer Hypothyroidism IBS (irritable bowel syndrome) Personal history of colonic polyps Psoriasis Takotsubo cardiomyopathy Vitamin D deficiency Surgical History History of appendectomy History of benign breast tumor History of bilateral oophorectomy History of section History of colonoscopy History of hysterectomy History of tonsillectomy Family History Father , Age 90 Cancer prostate CAD (coronary artery disease) Pacemaker COPD (chronic obstructive pulmonary disease) Brother CAD (coronary artery disease) CABG x 5 Hypertension Heart disease Mother CAD (coronary artery disease) CABG Heart disease CVA (cerebral vascular accident) Cancer rectal Social History Smoking Status: Never smoker alcohol intake: never substance use type: does not use caffeine: No what type of physical activity do you participate in: walking and weight training frequency: daily seatbelt use: always do you feel safe at home: Yes additional social history: - retired [employer] HPI Details: BHARATI HILLIARD, is a 81 F who presents to the office today for complaint of sore throat and nasal drainage for the past 3 days. Patient states that she typically gets this with her seasonal allergies however would like to have a COVID test as she is unvaccinated. She also reports that the sore throat causes her concern for strep as she has been around people with strep recently. She has had no fever, chills, sweats. No nausea, vomiting, diarrhea. No cough, shortness of breath or difficulty breathing. No loss of taste or smell. No other associated symptoms or alleviating/aggravating factors. ROS Const Constitutional: No other (6 system ROS completed with pertinent findings in the HPI otherwise normal.) Exam Const General: cooperative and well developed HENMT Head: normal to inspection and atraumatic Ears: hearing grossly normal bilaterally Nose: nasal discharge clear Face and sinus: normal facial exam Mouth: oral mucosae normal Throat: abnormal tonsil bilaterally hypertrophy 1+ Resp Effort Inspection: normal respiratory effort and no audible wheezes Auscultation: Bilateral: Clear to Auscultation Cardio Palpation: normal PMI Rate: regular rate Rhythm: regular rhythm Neuro General: patient alert and CN's II-XI intact bilaterally Psych Appearance: grossly normal Mental Status: mental status grossly normal Results POC KAMINI Covid FluAB PCR POC Kamini Covid PCR Not Detected Last Edit by Angelia Nixon on 07/16/21 09:32 POC KAMINI FLU NOT DETECTED FLU A B Last Edit by Angelia Nixon on 07/16/21 09:32 Coding Level of Care Code Off vis,new,level 3 Diagnoses Acute pharyngitis J02.9 Contact with or suspected exposure to other viral communicable disease Z20.828 Assessment and Plan Assessment and Plan (1) Acute pharyngitis: Status: Acute (2) Contact with or suspected exposure to other viral communicable disease: Status: Acute Orders: Orders: Culture, R/O Strep A Today J02.9 Plan - IPERO Horta: Patient tested negative for COVID in the office today. Patient swabbed for strep throat culture at her request. Encouraged to get plenty of rest, drink lots of clear liquids, and use Tylenol or Ibuprofen (unless contraindicated) for fever and comfort. Patient also educated on other symptomatic management techniques. To be seen in 7-10 days if no improvement; sooner if worsening of symptoms. Patient advised of potential red flags and when appropriate to report to the ED. Patient verbalized understanding and agreement with all the above. Plan Details Other Orders: Orders: POC Kamini Covid FLUAB PCR Today 07/16/21 0953 <Electronically signed by Charly HARRY> Date Charly HARRY Cosigner Signature: Date (if applicable) CC: Cira Ku DO Work Phone: Start: 05-22-2021 Smr prim src gram/giemsa stain bct fungi/cell Tamiko Graf MD Work Phone: Start: 04-12-2021 End: 04-12-2021 Cardiology Visit Report Comments: See Note; NOTES: [facility] [address] [place] [address] OFFICE VISIT Date of Service: 04/12/21 MR#: [id number] Acct: [id number] Name: BHARATI HILLIARD Rep #: [id number] : 1940 Provider: Dr. Alex ballesteros MD Age/Sex: 81/F [place] [facility] Status: Signed HPI HPI History of Present Illness Details: This is-year-old white female with a past cardiovascular history which is included underlying Takotsubo syndrome, SVT, and hypertension. From a cardiac standpoint she does not describe any ongoing symptoms suspicious for angina pectoris nor she had any overt episodes of CHF or pulmonary edema. She is not describing any palpitations or rapid rate sensations. There has been no near-syncope or syncope. She does bring with her her home blood pressure recordings on her current low-dose beta-kadi therapy. Overall her average blood pressures appear to be within reasonably good control. She does have intermittent low blood pressures and intermittent high blood pressures. She does admit she becomes very anxious over every little thing . She states this does impact her blood pressures and usually raises her blood pressures. She states she is being evaluated by her primary care physician. She is being considered for some form of anxiety related medication. In the meantime she states she has upcoming ophthalmologic surgery with bilateral cataract surgery. 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: No Accompanied by: Self Allergies cortisone Allergy (Severe, Verified 04/12/21 10:18) Throat swelling nitrofurantoin [From Macrobid] Allergy (Severe, Verified 04/12/21 10:18) Irregular HB, vision changes, diaphoresis erythromycin base Allergy (Intermediate, Verified 04/12/21 10:18) Unknown meperidine [From Demerol] Allergy (Intermediate, Verified 04/12/21 10:18) Unknown Iodinated Contrast Media [Iodinated Contrast Media - Oral and] Allergy (Verified 04/12/21 10:18) Rash iodine Allergy (Verified 04/12/21 10:18) Rash Penicillins Allergy (Verified 04/12/21 10:18) Rash Sulfa (Sulfonamide Antibiotics) Allergy (Verified 04/12/21 10:18) Rash contrast Allergy (Intermediate, Uncoded 04/12/21 10:18) Rash COBEX Allergy (Uncoded 04/12/21 10:18) Anaphylaxis immunizations Allergy (Uncoded 04/12/21 10:18) Unknown Medications lorazepam 0.5 mg tablet 0.25 mg PO DAILY tab 11/01/20 [History Confirmed 04/12/21] tumeric 100 mg-sae 150 mg-olive 50 mg-oreg 150 mg-caprylate capsule cap PO 11/01/20 [History Confirmed 04/12/21] ascorbic acid (vitamin C) 1,000 mg tablet 1 g PO DAILY tab 12/03/20 [History Confirmed 04/12/21] cholecalciferol (vitamin D3) 50 mcg (2,000 unit) capsule 50 mcg PO DAILY 12/03/20 [History Confirmed 04/12/21] mecobalamin (vitamin B12) 1,000 mcg chewable tablet 1,000 mcg PO DAILY 12/03/20 [History Confirmed 04/12/21] lactobacillus combination no.9 4 billion cell capsule 4,000 mmu cells PO DAILY 04/12/21 [History Confirmed 04/12/21] metoprolol tartrate 25 mg tablet 12.5 mg PO QHS tab 04/12/21 [History] selenium 200 mcg tablet 200 mcg PO DAILY 04/12/21 [History Confirmed 04/12/21] PFSH Medical History Abrasion of knee, bilateral Anxiety and depression Cataract Cystadenoma Elevated LFTs Elevated troponin 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 History of left heart catheterization (08/10/19) History of non-ST elevation myocardial infarction (NSTEMI) History of supraventricular tachycardia History of uterine cancer History of uterine cancer Hypothyroidism IBS (irritable bowel syndrome) Personal history of colonic polyps Psoriasis Takotsubo cardiomyopathy Vitamin D deficiency Surgical History History of appendectomy History of benign breast tumor History of bilateral oophorectomy History of section History of colonoscopy History of hysterectomy History of tonsillectomy Family History Father , Age 90 Cancer prostate CAD (coronary artery disease) Pacemaker COPD (chronic obstructive pulmonary disease) Brother CAD (coronary artery disease) CABG x 5 Hypertension Heart disease Mother CAD (coronary artery disease) CABG Heart disease CVA (cerebral vascular accident) Cancer rectal Social History Smoking Status: Never smoker alcohol intake: never substance use type: does not use caffeine: No what type of physical activity do you participate in: walking and weight training frequency: daily seatbelt use: always do you feel safe at home: Yes additional social history: - retired ROS Const Const: Negative for fatigue, weakness, frequent falls, excessive sweating, weight gain or weight loss Eyes Eyes: Negative for transient loss of vision, blurry vision or change in vision ENT ENT: Negative for dizziness or balance problems Cardio Chest Pain: No Palpitations: No Edema: None Muscle aches with walking: None Resp Respiratory: Negative for SOB with activity or SOB at rest GI GI: Negative vomiting or vomiting blood/hematemesis : Negative for hematuria Musc Musc: Negative for muscle aches/ myalgia, muscle weakness, joint pain or balance problems Skin Skin: Negative non-healing lesions or rash Neuro Neuro: Negative for dizziness, lightheadedness, orthostatic symptoms, frequent falls, weakness or blurry vision Waldemar Hematologic/Lymphatic: Negative for easy bleeding Endo Endo: Negative for fatigue or excessive sweating Psych Psych: Negative for anxiety or depression Allergy Allergy/Immunology: Negative for hives and Negative for rash Cardiology Exam Const Appearance: cooperative, healthy appearing, comfortable, no acute distress, well developed and well groomed Nutritional Appearance: well nourished and thin Orientation: alert, awake and oriented x3 Head Head: normal to inspection, normocephalic and atraumatic Ears: hearing grossly normal bilaterally Nose: external nose normal Face and Sinus: face symmetric Eyes Eyelids: eyelids normal Conjunctivae: conjunctivae normal Pupils: PERRL EOM: EOM intact bilaterally Neck Neck: normal visual inspection and full ROM Carotids: normal carotid upstroke Chest Chest inspection: normal inspection of the chest, symmetric chest movement and normal respiratory effort Auscultation: Bilateral: Clear to Auscultation Cardio Palpation: normal PMI Rate: regular rate Rhythm: regular rhythm and ectopic beats Heart sounds: S1 normal and S2 normal GI GI: normal to inspection, soft and bowel sounds present Neuro General: patient alert, patient awake, patient oriented x3 and moves all extremities Skin Skin: no rashes or lesions noted Extremities Pulses: Normal: Right Radial Pulse and Left Radial Pulse Lower Extremity Edema: None: Bilateral Psych Psychological: normal affect Supplemental Info Supplemental Information Echocardiogram: 11-14-2019 Interpretation Summary Left ventricular systolic function is normal. The estimated ejection fraction is 65 %. Anterior leaflet diffuse mitral valve thickening. The mitral valve chordae are thickened and/or calcified. Mild mitral valve prolapse. Mild (1+) mitral valve insufficiency. Mild tricuspid valve insufficiency. Mild diffuse aortic valve thickening. Trivial aortic valve insufficiency. Mild (1+) eccentric pulmonic valve insufficiency. Right ventricular systolic pressure estimated to be 30 mmHg. Diastolic function is indeterminate. Echocardiogram: 11/20/2020 Interpretation Summary The study was technically difficult. Left ventricular systolic function is normal. The estimated ejection fraction is 65 %. Mild mitral valve prolapse. Mild diffuse mitral valve thickening. Trivial mitral valve insufficiency. Mild to moderate (1-2+) eccentric tricuspid valve insufficiency. Trivial aortic valve insufficiency. Trivial pericardial effusion. There are no echocardiographic indications of cardiac tamponade. Right ventricular systolic pressure estimated to be 38 mmHg. Transmitral diastolic flow velocities suggest diastolic dysfunction (pseudonormal pattern). Cardiac catheterization: 08-10-2019 Supplemental Information CONCLUSIONS Non obstructive CAD. Takotsubo cardiomyopathy. EF is 35%. No significant or MR RECOMMENDATIONS DESCRIPTION OF PROCEDURE The patient arrived to the procedure lab. The risks and benefits of the procedure as well as a full description of our services here and current unavailability of surgical backup were fully explained to the patient and/or their significant other prior to the catheterization. The Timeout was completed, verifying the correct patient and procedure. The patient's procedural site was prepped and draped in the usual fashion. Local anesthetic was given subcutaneously to right radial region with Lidocaine 2%. Using a modified Seldinger technique, arterial access was obtained via the right radial artery, a 6Fr sheath was inserted. Left Coronary Artery selective angiography was performed in multiple views using a 5 Fr. JL3.5 catheter. Left Ventriculography was performed in GUZMAN projection using a 5 Fr. JR 4. LV to AO pullback pressures were then recorded. Right Coronary Artery selective angiography was then performed in multiple views using a 5 Fr. JR 4 catheter.The arterial sheath was pulled and a TR Band was applied for hemostasis w/ 13ml air CORONARY ANGIOGRAPHY DOMINANCE: Right Dominant LEFT HEART ASSESSMENT Left Ventricular Ejection Fraction: by LV Gram 35 % Severe hypokinesis to akinesis of the mid LV with normal contraction of the apex and base of the LV consistent with apical sparing Takotsubo cardiomyopathy LEFT MAIN: Mild luminal irregularities LEFT ANTERIOR DESCENDING ARTERY: Mild luminal irregularities CIRCUMFLEX ARTERY: Mild luminal irregularities RIGHT CORONARY ARTERY: Mild luminal irregularities VALVE FINDINGS: No Aortic Valve Stenosis No Mitral Insufficency Labs: LDL Cholesterol 68 mg/dL (0-130) HDL Cholesterol 90 mg/dL (40-) Triglycerides 85 mg/dL (-199) VLDL Cholesterol 17 mg/dL (5-40) Diagnostics: Electrocardiogram Echocardiogram Cardiac Catheterization Chest X-Ray Pulmonary: No Data to Display Assessment and Plan Assessment and Plan (1) Takotsubo cardiomyopathy: Status: Acute Plan - Dr. Alex Al MD: She has undergone reevaluation of her left ventricular wall motion systolic function in the fall 2020. Her echocardiogram is noted and it was reviewed with her. Her overall systolic function appears to remain preserved. At the current time she will continue outpatient follow-up. (2) History of supraventricular tachycardia: Status: Chronic Plan - Dr. Alex Al MD: There is been no obvious recurrence of any supraventricular or ventricular dysrhythmias. She will continue her current therapy and follow-up. (3) Essential hypertension: Status: Chronic Plan - Dr. Alex Al MD: She is going to continue her low-dose beta-kadi therapy. She will monitor her blood pressures for any significant continued low pressures are elevated pressures that warrant further adjustment. In the meantime she is going to be seeking evaluation care by her PCP for her anxiety related issues which may also assist in helping to care for her elevated blood pressures. Plan Details Additional Comments: Thank you for allowing me to participate in the care of your patient. Please don't hesitate to call if any issues arise. This note was generated using a voice recognition system and there may be incorrect words, spelling or punctuation that were not noted when reviewing the office note prior to saving. Follow Up: 6 Months (PFM ) COVID (Procedure Consent) Procedure Criteria Procedure Criteria: Yes Elective The surgeon/proceduralist and patient have discussed in detail the risk of exposure to and/or potential harm posed by the COVID-19 virus with having a surgery/procedu re at this time versus the risk of??? delaying the surgery/procedure. It is not possible to know either the risk of delaying the surgery or procedure or chance of getting an infection with perfect accuracy, but a joint decision was made between the patient and the surgeon/proceduralist ???to proceed at this time with the scheduled surgery/procedure as indicated on the consent form. Coding Level of Care Code Off vis,est,level 3 Diagnoses Takotsubo cardiomyopathy I51.81 History of supraventricular tachycardia Z86.79 Essential hypertension I10 Coding Level of Care Code Off vis,est,level 3 Diagnoses Takotsubo cardiomyopathy I51.81 History of supraventricular tachycardia Z86.79 Essential hypertension I10 04/12/21 1232 <Electronically signed by Alex Al MD> Date Alex Al MD Cosigner Signature: Date (if applicable) CC: Dr. Cira Ku, DO Cira Ku DO Work Phone: Start: 12-03-2020 End: 12-19-2020 Cardiology Visit Report Comments: See Note; NOTES: [facility] [address] [place], [place] [address] OFFICE VISIT Date of Service: 12/03/20 MR#: [id number] Acct: [id number] Name: BHARATI HILLIARD Rep #: [id number] : 1940 Provider: PIERO Desir Age/Sex: 80/F Location: [facility] Status: Signed HPI HPI History of Present Illness Details: This is a 80-year-old female that presents here today for a cardiovascular follow-up. She does have a history of coronary artery vasospasm with subsequent Takotsubo, cardiac ectopy and hypertension. Patient was in the hospital on October 28, 2020 for an elevated troponin. What led up to her emergency room visit and hospital stay was complaints of right ear fullness, elevated blood pressure readings and being anxious. Because of her elevated blood pressure readings she came into the emergency room. Her high sensitive a troponin was up to about 4000. Cardiology was consulted. It was felt that she may have had a Takotsubo cardiomyopathy versus vasospasm. It was discussed with patient about pursuing medication such as metoprolol and lisinopril however patient is concerned about hypotension as she has had this in the past and she is concerned on taking the beta-kadi on a routine basis and wishes to continue this on an as-needed basis. At her last office visit she was hesitant to take her beta-kadi routinely. After her last office visit she was agreeable to try to take her metoprolol routinely as she did have hypertension. Patient notes that overall she is doing better. She does have more energy. She does note that her blood pressures do fluctuate. She does have lower blood pressure readings at times. 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 Required: No Is patient in pain?: No Allergies cortisone Allergy (Severe, Verified 12/03/20 15:14) Throat swelling nitrofurantoin [From Macrobid] Allergy (Severe, Verified 12/03/20 15:14) Irregular HB, vision changes, diaphoresis erythromycin base Allergy (Intermediate, Verified 12/03/20 15:14) Unknown meperidine [From Demerol] Allergy (Intermediate, Verified 12/03/20 15:14) Unknown Iodinated Contrast Media [Iodinated Contrast Media - Oral and] Allergy (Verified 12/03/20 15:14) Rash iodine Allergy (Verified 12/03/20 15:14) Rash Penicillins Allergy (Verified 12/03/20 15:14) Rash Sulfa (Sulfonamide Antibiotics) Allergy (Verified 12/03/20 15:14) Rash contrast Allergy (Intermediate, Uncoded 11/05/20 13:48) Rash COBEX Allergy (Uncoded 08/24/20 09:58) Anaphylaxis immunizations Allergy (Uncoded 08/24/20 09:58) Unknown Medications lorazepam 0.5 mg tablet 0.25 mg PO DAILY tab 11/01/20 [History Confirmed 12/03/20] tumeric 100 mg-sae 150 mg-olive 50 mg-oreg 150 mg-caprylate capsule cap PO 11/01/20 [History Confirmed 12/03/20] ascorbic acid (vitamin C) 1,000 mg tablet 1 g PO DAILY tab 12/03/20 [History Confirmed 12/03/20] cholecalciferol (vitamin D3) 50 mcg (2,000 unit) capsule 50 mcg PO DAILY 12/03/20 [History Confirmed 12/03/20] mecobalamin (vitamin B12) 1,000 mcg chewable tablet 1,000 mcg PO DAILY 12/03/20 [History Confirmed 12/03/20] metoprolol tartrate 25 mg tablet 12.5 mg PO DAILY #45 tab 12/03/20 [Rx Confirmed 12/03/20] [facility] Medical History (Updated 11/05/20 @ 00:00 by Background Daemon) Abrasion of knee, bilateral Anxiety and depression Cataract Cystadenoma Elevated LFTs Elevated troponin 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 History of left heart catheterization (08/10/19) History of non-ST elevation myocardial infarction (NSTEMI) History of supraventricular tachycardia History of uterine cancer History of uterine cancer Hypothyroidism IBS (irritable bowel syndrome) Personal history of colonic polyps Psoriasis Takotsubo cardiomyopathy Vitamin D deficiency Surgical History History of appendectomy History of benign breast tumor History of bilateral oophorectomy History of section History of colonoscopy History of hysterectomy History of tonsillectomy Family History Father , Age 90 Cancer prostate CAD (coronary artery disease) Pacemaker COPD (chronic obstructive pulmonary disease) Brother CAD (coronary artery disease) CABG x 5 Hypertension Heart disease Mother CAD (coronary artery disease) CABG Heart disease CVA (cerebral vascular accident) Cancer rectal Social History Smoking Status: Never smoker alcohol intake: never substance use type: does not use caffeine: No what type of physical activity do you participate in: walking and weight training frequency: daily seatbelt use: always do you feel safe at home: Yes additional social history: - retired ROS Const Const: Negative for fatigue, weakness, headache(s), frequent falls, excessive sweating, weight gain or weight loss Eyes Eyes: Negative for blind spots, loss of peripheral vision, transient loss of vision, blurry vision, change in vision or double vision ENT ENT: Negative for headache(s), dizziness, tinnitus, Nosebleed/epistaxis or balance problems Cardio Chest Pain: No Palpitations: No Edema: None Muscle aches with walking: None Resp Respiratory: Negative for SOB with activity, SOB at rest, SOB orthopnea SOB lying down or Cough GI GI: Negative nausea, vomiting, heartburn, bloating, vomiting blood/hematemesis, bright, red blood in stools or black,tarry stools : Negative for hematuria Musc Musc: Negative for muscle aches/ myalgia, muscle weakness, joint pain or balance problems Skin Skin: Negative rash or wounds Neuro Neuro: Negative for dizziness, lightheadedness, near syncope, syncope, orthostatic symptoms, frequent falls, headache(s), weakness, confusion, memory loss, restless legs, blurry vision or double vision Waldemar Hematologic/Lymphatic: Negative for easy bleeding or easy bruising Endo Endo: Negative for fatigue, cold intolerance, heat intolerance or excessive sweating Psych Psych: Negative for anxiety or depression Allergy Allergy/Immunology: Negative for rash Cardiology Exam Const Appearance: cooperative, healthy appearing, comfortable, no acute distress, well developed and well groomed Nutritional Appearance: thin Orientation: alert, awake and oriented x3 Head Head: normal to inspection, normocephalic and atraumatic Ears: hearing grossly normal bilaterally Nose: external nose normal Face and Sinus: face symmetric Eyes Eyelids: eyelids normal Conjunctivae: conjunctivae normal Pupils: PERRL EOM: EOM intact bilaterally Neck Neck: normal visual inspection and full ROM Carotids: normal carotid upstroke Chest Chest inspection: normal inspection of the chest, symmetric chest movement and normal respiratory effort Auscultation: Bilateral: Clear to Auscultation Cardio Palpation: normal PMI Rate: regular rate Rhythm: regular rhythm and ectopic beats Heart sounds: S1 normal and S2 normal GI GI: normal to inspection, soft and bowel sounds present Neuro General: patient alert, patient awake, patient oriented x3 and moves all extremities Skin Skin: no rashes or lesions noted Extremities Pulses: Normal: Right Radial Pulse and Left Radial Pulse Lower Extremity Edema: None: Bilateral Psych Psychological: normal affect Assessment and Plan Assessment and Plan (1) Takotsubo cardiomyopathy: Status: Acute Plan - Norma HARRY PA: With patient's elevated troponin and history of Takotsubo, recent EF demonstrated normal EF. Will continue with metoprolol. (2) Essential hypertension: Status: Chronic Plan - Norma HARRY PA: BP elevated in the office, controlled at home. She does find when it is elevated she is stress. She does have low readings also. Will decrease her metoprolol to 12.5 mg daily. (3) Non-STEMI (non-ST elevated myocardial infarction): Status: Acute Plan - Norma HARRY PA: Advised to take ASA. She will continue with her metoprolol at 12.5 mg daily. Discussed adjusting this to extending release- pt would like to wait on this and wishes to keep short acting. Plan Details Other Medications: New: metoprolol tartrate 12.5 mg (1/2 x 25 mg) PO DAILY 45 tabs 3RF Follow Up: 12/03/20 (keep as is) Coding Level of Care Code Off vis,est,level 3 Diagnoses Takotsubo cardiomyopathy I51.81 Essential hypertension I10 Non-STEMI (non-ST elevated myocardial infarction) I21.4 Coding Level of Care Code Off vis,est,level 3 Diagnoses Takotsubo cardiomyopathy I51.81 Essential hypertension I10 Non-STEMI (non-ST elevated myocardial infarction) I21.4 Supplemental Info Supplemental Information Echocardiogram: 11-14-2019 Interpretation Summary Left ventricular systolic function is normal. The estimated ejection fraction is 65 %. Anterior leaflet diffuse mitral valve thickening. The mitral valve chordae are thickened and/or calcified. Mild mitral valve prolapse. Mild (1+) mitral valve insufficiency. Mild tricuspid valve insufficiency. Mild diffuse aortic valve thickening. Trivial aortic valve insufficiency. Mild (1+) eccentric pulmonic valve insufficiency. Right ventricular systolic pressure estimated to be 30 mmHg. Diastolic function is indeterminate. Cardiac catheterization: 08-10-2019 Supplemental Information CONCLUSIONS Non obstructive CAD. Takotsubo cardiomyopathy. EF is 35%. No significant or MR RECOMMENDATIONS DESCRIPTION OF PROCEDURE The patient arrived to the procedure lab. The risks and benefits of the procedure as well as a full description of our services here and current unavailability of surgical backup were fully explained to the patient and/or their significant other prior to the catheterization. The Timeout was completed, verifying the correct patient and procedure. The patient's procedural site was prepped and draped in the usual fashion. Local anesthetic was given subcutaneously to right radial region with Lidocaine 2%. Using a modified Seldinger technique, arterial access was obtained via the right radial artery, a 6Fr sheath was inserted. Left Coronary Artery selective angiography was performed in multiple views using a 5 Fr. JL3.5 catheter. Left Ventriculography was performed in GUZMAN projection using a 5 Fr. JR 4. LV to AO pullback pressures were then recorded. Right Coronary Artery selective angiography was then performed in multiple views using a 5 Fr. JR 4 catheter.The arterial sheath was pulled and a TR Band was applied for hemostasis w/ 13ml air CORONARY ANGIOGRAPHY DOMINANCE: Right Dominant LEFT HEART ASSESSMENT Left Ventricular Ejection Fraction: by LV Gram 35 % Severe hypokinesis to akinesis of the mid LV with normal contraction of the apex and base of the LV consistent with apical sparing Takotsubo cardiomyopathy LEFT MAIN: Mild luminal irregularities LEFT ANTERIOR DESCENDING ARTERY: Mild luminal irregularities CIRCUMFLEX ARTERY: Mild luminal irregularities RIGHT CORONARY ARTERY: Mild luminal irregularities VALVE FINDINGS: No Aortic Valve Stenosis No Mitral Insufficency Labs: LDL Cholesterol 68 mg/dL (0-130) HDL Cholesterol 90 mg/dL (40-) Triglycerides 85 mg/dL (-199) VLDL Cholesterol 17 mg/dL (5-40) Diagnostics: Electrocardiogram Echocardiogram Chest X-Ray Pulmonary: No Data to Display 12/03/20 7782 <Electronically signed by Norma Bradshaw> Date Norma HARRY Cosign Signature: Date (if applicable) CC: DO Cira Martinez DO Work Phone: Start: 11-20-2020 End: 11-20-2020 Echo Complete Comments: See Note; NOTES: [facility] [address] [place] [address] Echo Complete 11/20/20 1257 MR#: [id number] Acct: [id number] Name: BHARATI HILLIARD Rep #: [id number] : 1940 80 From: Alex Al MD Attending Dr: PIERO Watts Status: REG I Ordering Dr: Norma Boyce Date: 10/25 10/13 Location: [facility] Sex: F C Admitted: Reason For Study: Dyspnea/SOB Procedure This was a 2D Doppler, Color Flow transthoracic echocardiogram. The study was technically difficult. Exam performed in department. Left Ventricle Normal LV size. Left ventricular systolic function is normal. The estimated ejection fraction is 65 %. No regional wall motion abnormalities noted. Right Ventricle Normal RV size. Normal systolic function. Atria Normal left atrium. Normal right atrium. No doppler evidence for ASD. Mitral Valve There is no mitral annular calcification. Mild diffuse mitral valve thickening. Mild mitral valve prolapse. Trivial mitral valve insufficiency. Tricuspid Valve Normal tricuspid valve. Mild to moderate (1-2+) eccentric tricuspid valve insufficiency. Right ventricular systolic pressure estimated to be 38 mmHg. Aortic Valve Trisinus/trileaflet aortic valve. Normal aortic valve. Trivial aortic valve insufficiency. Pulmonic Valve The pulmonic valve is not well visualized. Great Vessels The aortic root is not well visualized. Pericardium/Pleural Trivial pericardial effusion. There are no echocardiographic indications of cardiac tamponade. MMode/2D Measurements Calculations LVIDd: 3.5 cm IVSd: 0.67 cm LA dimension: 2.9 cm LVIDs: 2.1 cm LVPWd: 0.86 cm FS: 40.8 % LAV(MOD-bp): 37.1 ml LA A4 area: 15.9 cm2 RA A4 area: 13.2 cm2 LAV(MOD-bp) Indexed: 26.0 ml/m2 LAV(MOD-sp2): 30.7 ml LAV(MOD-sp4): 42.5 ml Time Measurements MV dec time: 0.19 sec Doppler Measurements Calculations MV E max sabina: 132.1 cm/sec Lat Peak E' Sabina: 6.6 cm/sec Med Peak E' Sabina: 10.7 cm/sec MV A max sabina: 108.7 cm/sec E/E' lat: 19.9 E/E' med: 12.3 MV E/A: 1.2 MV V2 max: 141.9 cm/sec MV P1/2t max sabina: 143.2 cm/sec Ao V2 max: 132.0 cm/sec MV max P.1 mmHg MV P1/2t: 82.8 msec Ao max P.0 mmHg MV V2 mean: 82.8 cm/sec MV dec slope: 506.6 cm/sec2 MV mean P.2 mmHg MVA(P1/2t): 2.7 cm2 MV V2 VTI: 37.0 cm AI max sabina: 419.7 cm/sec LV V1 max: 95.4 cm/sec PA V2 max: 105.9 cm/sec AI max P.5 mmHg LV V1 max P.6 mmHg AI dec slope: 343.6 cm/sec2 AI P1/2t: 357.8 msec TR max sabina: 295.9 cm/sec TR max P.0 mmHg ECHO/Echo Complete Interpretation Summary The study was technically difficult. Left ventricular systolic function is normal. The estimated ejection fraction is 65 %. Mild mitral valve prolapse. Mild diffuse mitral valve thickening. Trivial mitral valve insufficiency. Mild to moderate (1-2+) eccentric tricuspid valve insufficiency. Trivial aortic valve insufficiency. Trivial pericardial effusion. There are no echocardiographic indications of cardiac tamponade. Right ventricular systolic pressure estimated to be 38 mmHg. Transmitral diastolic flow velocities suggest diastolic dysfunction (pseudonormal pattern). _ Ordering Physician: Norma Boyce Referring Physician: Cira Ku M.D. Performed By: Jb Phan RCS 11/20/20 183 Date Alex Al MD CC: PIERO Boyce; Dr. Cira Ku, Date Dictated: 11/20/20 1257 Date Transcribed: 11/20/201830 Salvage Repairer: Signed Cira Ku DO Work Phone: Start: 11-01-2020 End: 11-07-2020 Cardiology Visit Report Comments: See Note; NOTES: [facility] [address] [place] [address] OFFICE VISIT Date of Service: 11/01/20 MR#: [id number] Acct: [id number] Name: BHARATI HILLIARD Rep #: [id number] : 1940 Provider: PIERO Desir Age/Sex: 80/F [place] [facility] Status: Signed HPI HPI History of Present Illness Details: This is a 80-year-old female that presents here today for a hospital follow-up. She does have a history of coronary artery vasospasm with subsequent Takotsubo, cardiac ectopy and hypertension. Patient was in the hospital on October 28, 2020 for an elevated troponin. What led up to her emergency room visit and hospital stay was complaints of right ear fullness, elevated blood pressure readings and being anxious. Because of her elevated blood pressure readings she came into the emergency room. Her high sensitive a troponin was up to about 4000. Cardiology was consulted. It was felt that she may have had a Takotsubo cardiomyopathy versus vasospasm. It was discussed with patient about pursuing medication such as metoprolol and lisinopril however patient is concerned about hypotension as she has had this in the past and she is concerned on taking the beta-kadi on a routine basis and wishes to continue this on an as-needed basis. Pt has had fatigue since she was in the hospital. This morning she had a feeling of limpness. She noted that she did have some palpitations. This is like a wave that comes over me. Pt previous today her BP have been okay, today it is elevated. Intake Vital Signs 11/01/20 15:12 Height 5 ft 2 in Weight: 100 lb BMI 18.3 BP 175/71 H Blood Pressure Location Lt brachial Position Sitting Respiration 18 Pulse 78 Pulse Source Monitor Pulse Oximetry (%) 99 Intake Visit Reasons: FU FROM [facility]. PER DR KU Painter And Decorator Required: No Is patient in pain?: No Allergies cortisone Allergy (Severe, Verified 11/01/20 15:12) Throat swelling nitrofurantoin [From Macrobid] Allergy (Severe, Verified 11/01/20 15:12) Irregular HB, vision changes, diaphoresis erythromycin base Allergy (Intermediate, Verified 11/01/20 15:12) Unknown meperidine [From Demerol] Allergy (Intermediate, Verified 11/01/20 15:12) Unknown Iodinated Contrast Media [Iodinated Contrast Media - Oral and] Allergy (Verified 11/01/20 15:12) Rash iodine Allergy (Verified 11/01/20 15:12) Rash Penicillins Allergy (Verified 11/01/20 15:12) Rash Sulfa (Sulfonamide Antibiotics) Allergy (Verified 11/01/20 15:12) Rash contrast Allergy (Intermediate, Uncoded 11/05/20 13:48) Rash COBEX Allergy (Uncoded 08/24/20 09:58) Anaphylaxis immunizations Allergy (Uncoded 08/24/20 09:58) Unknown Medications escitalopram oxalate 5 mg tablet 2.5 mg PO QHS tab 11/01/20 [History Confirmed 11/01/20] lorazepam 0.5 mg tablet 0.25 mg PO DAILY tab 11/01/20 [History Confirmed 11/01/20] metoprolol tartrate 25 mg tablet 12.5 mg PO DAILY tab 11/01/20 [History Confirmed 11/01/20] tumeric 100 mg-sae 150 mg-olive 50 mg-oreg 150 mg-caprylate capsule cap PO 11/01/20 [History Confirmed 11/01/20] [facility] Medical History (Updated 11/05/20 @ 00:00 by Background Daemzaid) Abrasion of knee, bilateral Anxiety and depression Cataract Cystadenoma Elevated LFTs Elevated troponin 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 History of left heart catheterization (08/10/19) History of non-ST elevation myocardial infarction (NSTEMI) History of supraventricular tachycardia History of uterine cancer History of uterine cancer Hypothyroidism IBS (irritable bowel syndrome) Personal history of colonic polyps Psoriasis Takotsubo cardiomyopathy Vitamin D deficiency Surgical History History of appendectomy History of benign breast tumor History of bilateral oophorectomy History of section History of colonoscopy History of hysterectomy History of tonsillectomy Family History Father , Age 90 Cancer prostate CAD (coronary artery disease) Pacemaker COPD (chronic obstructive pulmonary disease) Brother CAD (coronary artery disease) CABG x 5 Hypertension Heart disease Mother CAD (coronary artery disease) CABG Heart disease CVA (cerebral vascular accident) Cancer rectal Social History Smoking Status: Never smoker alcohol intake: never substance use type: does not use caffeine: No what type of physical activity do you participate in: walking and weight training frequency: daily seatbelt use: always do you feel safe at home: Yes additional social history: - retired ROS Const Const: Positive for fatigue and weakness; Negative for headache(s), frequent falls, excessive sweating, weight gain or weight loss Eyes Eyes: Negative for blind spots, loss of peripheral vision, transient loss of vision, blurry vision, change in vision or double vision ENT ENT: Negative for headache(s), dizziness, tinnitus, Nosebleed/epistaxis or balance problems Cardio Chest Pain: No Palpitations: No Edema: None Muscle aches with walking: None Resp Respiratory: Negative for SOB with activity, SOB at rest, SOB orthopnea SOB lying down or Cough GI GI: Negative nausea, vomiting, heartburn, bloating, vomiting blood/hematemesis, bright, red blood in stools or black,tarry stools : Negative for hematuria Musc Musc: Negative for muscle aches/ myalgia, muscle weakness, joint pain or balance problems Skin Skin: Negative rash or wounds Neuro Neuro: Positive for weakness; Negative for dizziness, lightheadedness, near syncope, syncope, orthostatic symptoms, frequent falls, headache(s), confusion, memory loss, restless legs, blurry vision or double vision Waldemar Hematologic/Lymphatic: Negative for easy bleeding or easy bruising Endo Endo: Positive for fatigue; Negative for cold intolerance, heat intolerance or excessive sweating Psych Psych: Negative for anxiety or depression Allergy Allergy/Immunology: Negative for rash Assessment and Plan Assessment and Plan (1) Takotsubo cardiomyopathy: Status: Acute Orders: Orders: Echo Complete 11/01/20 Plan - PIERO Ferrari: With patient's elevated troponin and history of Takotsubo would like to pursue an echocardiogram to further assess the stability of her LV function. (2) Essential hypertension: Status: Chronic Plan - Norma HARRY PA: Blood pressure is elevated. Patient was hesitant to take medications. She was instructed to take her metoprolol twice a day. She will bring her cuff in with her to the next office visit to correlate readings. Patient Instructions: Take your metoprolol twice a day. Bring your BP cuff to your next office visit (3) Non-STEMI (non-ST elevated myocardial infarction): Status: Acute Plan - PIERO Ferrari: Patient will have an updated echocardiogram to reassess her recent non-STEMI. Plan Details Other Orders: Orders: Echo Complete 11/01/20 I25.2 Follow Up: 1 Month (MMM) Coding Level of Care Code Off vis,est,level 4 Diagnoses Takotsubo cardiomyopathy I51.81 Essential hypertension I10 Non-STEMI (non-ST elevated myocardial infarction) I21.4 Coding Level of Care Code Off vis,est,level 4 Diagnoses Takotsubo cardiomyopathy I51.81 Essential hypertension I10 Non-STEMI (non-ST elevated myocardial infarction) I21.4 Supplemental Info Supplemental Information Echocardiogram: 11-14-2019 Interpretation Summary Left ventricular systolic function is normal. The estimated ejection fraction is 65 %. Anterior leaflet diffuse mitral valve thickening. The mitral valve chordae are thickened and/or calcified. Mild mitral valve prolapse. Mild (1+) mitral valve insufficiency. Mild tricuspid valve insufficiency. Mild diffuse aortic valve thickening. Trivial aortic valve insufficiency. Mild (1+) eccentric pulmonic valve insufficiency. Right ventricular systolic pressure estimated to be 30 mmHg. Diastolic function is indeterminate. Cardiac catheterization: 08-10-2019 Supplemental Information CONCLUSIONS Non obstructive CAD. Takotsubo cardiomyopathy. EF is 35%. No significant or MR RECOMMENDATIONS DESCRIPTION OF PROCEDURE The patient arrived to the procedure lab. The risks and benefits of the procedure as well as a full description of our services here and current unavailability of surgical backup were fully explained to the patient and/or their significant other prior to the catheterization. The Timeout was completed, verifying the correct patient and procedure. The patient's procedural site was prepped and draped in the usual fashion. Local anesthetic was given subcutaneously to right radial region with Lidocaine 2%. Using a modified Seldinger technique, arterial access was obtained via the right radial artery, a 6Fr sheath was inserted. Left Coronary Artery selective angiography was performed in multiple views using a 5 Fr. JL3.5 catheter. Left Ventriculography was performed in GUZMAN projection using a 5 Fr. JR 4. LV to AO pullback pressures were then recorded. Right Coronary Artery selective angiography was then performed in multiple views using a 5 Fr. JR 4 catheter.The arterial sheath was pulled and a TR Band was applied for hemostasis w/ 13ml air CORONARY ANGIOGRAPHY DOMINANCE: Right Dominant LEFT HEART ASSESSMENT Left Ventricular Ejection Fraction: by LV Gram 35 % Severe hypokinesis to akinesis of the mid LV with normal contraction of the apex and base of the LV consistent with apical sparing Takotsubo cardiomyopathy LEFT MAIN: Mild luminal irregularities LEFT ANTERIOR DESCENDING ARTERY: Mild luminal irregularities CIRCUMFLEX ARTERY: Mild luminal irregularities RIGHT CORONARY ARTERY: Mild luminal irregularities VALVE FINDINGS: No Aortic Valve Stenosis No Mitral Insufficency Labs: LDL Cholesterol 68 mg/dL (0-130) HDL Cholesterol 90 mg/dL (40-) Triglycerides 85 mg/dL (-199) VLDL Cholesterol 17 mg/dL (5-40) Diagnostics: Electrocardiogram Echocardiogram Chest X-Ray Pulmonary: No Data to Display 11/07/20 1642 <Electronically signed by Norma Bradshaw> Date Norma Rush Signature: Date (if applicable) CC: Dr. Cira Ku, DO Cira Ku DO Work Phone: Start: 10-27-2020 End: 10-27-2020 Chest 1 View (Portable) Comments: See Note; NOTES: [facility] Services [address] [place] [address] Chest 1 View (Portable) MR#: [id number] Acct: [id number] Name: BHARATI HILLIARD Rep #: [id number] : 1940 F 80 From: Shaquille Faulkner DO PCP: Dr. Cira Ku DO Status: REG ER Study: Chest 1 View (Portable) Date of Exam: 10/27/20 Exam# [id number] Ordering Dr: Micheal Schaeffer DO INDICATION: chest pain EXAMINATION/TECHNIQUE: X-RAY - XR Chest 1 View COMPARISON: Left shoulder x-rays from 01/18/2019. FINDINGS: LINES/DEVICES: Blank are monitoring wires. LUNGS: No consolidation, edema or effusion. No pneumothorax. Lungs are hyperinflated expanded likely representing emphysema. Significantly increased hyperlucency no abnormal reticular opacities. There is slight blunting of the left costophrenic angle. MEDIASTINUM AND CARDIOVASCULAR STRUCTURES: Cardiac silhouette not enlarged. Central airways and mediastinal contour are unremarkable. BONES AND SOFT TISSUES: Within normal limits for age. RAD/Chest 1 View (Portable) IMPRESSION: Slight blunting left costophrenic angle. Otherwise normal exam. Consider PA and lateral views of the chest when patient is able. Electronically Signed: Shaquille Faulkner DO at 21:33 EDT Tel , Service support , CC: Dr. Micheal Schaeffer DO; Dr. Cira Ku DO Salvage Repairer: Signed Cira Ku DO Work Phone: Start: 08-24-2020 End: 08-24-2020 Cardiology Visit Report Comments: See Note; NOTES: [facility] [address] [place] [address] OFFICE VISIT Date of Service: 08/24/20 MR#: [id number] Acct: [id number] Name: BHARATI HILLIARD Rep #: [id number] : 1940 Provider: Dr. Alex ballesteros MD Age/Sex: 80/F Location: [facility] [place] Status: Signed [facility] History of Present Illness Details: This is a 80-year-old white female who presents today for outpatient cardiovascular follow- up based upon concerns of coronary artery vasospasm with subsequent Takotsubo syndrome superimposed upon a history of cardiac ectopy and hypertension. Overall since her last visit she has remained out of the hospital. She did undergo a follow-up transthoracic echocardiogram in October 2019. The results are noted below and they were reviewed with her. She does not describe any symptoms of classic angina pectoris or obvious CHF or pulmonary edema events. There has been no near syncope or syncope. She states that her main concerns include her anxiety. She is going to be evaluated by a [facility] physician in the near future for functional medicine. She is hoping that they will find an etiology for her anxiety which she believes is related to adrenal dumping . She does check her heart rate and blood pressures. She does use her medications on a as needed basis to assist with her anxiety levels and subsequently her heart rate and blood pressure response. As you recall, from historical perspective, she was previously been followed by [facility] cardiology. She states approximately 15 years ago while living in [place], [place], she experienced chest discomfort. She states she was evaluated at the hospital. She underwent diagnostic cardiac catheterization. She was told that she had a coronary artery vasospasm event. She was treated medically and released. Since that time she states she has never had to return to the cardiac catheterization laboratory. She has had noninvasive studies performed through the [facility] system. It appears in November 2009 she had a transthoracic echocardiogram performed. Her left ventricle was thought to be normal with an LVEF of 75% with findings of trivial to mild MR, mild TR, and mild aortic valve sclerosis and trivial PI. She had a stress echocardiogram performed in October 2009. According to the report it was considered negative for myocardial ischemia. She has had ambulatory monitors performed. In November 2011 she had a 48-hour Holter monitor which demonstrated predominantly sinus rhythm with a comment of PACs and PVCs but no atrial dysrhythmia, SVT, or complex ventricular ectopy, or pauses. It appears that she had a 24-hour Holter monitor performed in July 2010. At that time it appeared there were similar type findings. She had a 30-day monitor performed in July 2010. At that time she had rare atrial and ventricular ectopy with a report of no atrial fibrillation and no SVT. However, she states she has been diagnosed with SVT in the past. She states that she had a renal artery duplex study performed in the past based on concerns of hypertension. A study was found through the [employer] system from 2018. At that point in time there was no report of renal artery stenosis. The only comment about the abdominal aorta was that it was patent at the level of the renal arteries. She does not recall being checked for any abdominal aortic aneurysm in the past. She was hospitalized at the [facility] in July of 2019. She underwent cardiovascular consultation. She underwent diagnostic cardiac catheterization by Dr. Dubon. She was found to have no angiographically significant CAD but findings compatible with an underlying stress-induced cardiomyopathy/Takotsubo syndrome. She was asked to be treated medically with beta-blockers and GURDEEP inhibitors. As noted in the past she states she has been intolerant to medications on a daily basis secondary to concerns of hypotension. Thus she has only been taking her low-dose beta-kadi on a as needed basis depending upon her blood pressures. She has not attempted the GURDEEP inhibitor due to fear of hypotension. Intake Vital Signs 08/24/20 09:56 Height 5 ft 2 in Weight: 99 lb 2 oz BMI 18.1 BP 180/80 H Blood Pressure Location Lt brachial Position Sitting Respiration 18 Pulse 80 Pulse Source Auscultation Intake Visit Reasons: pt req. sooner appt Painter And Decorator Required: No Accompanied by: Self Allergies cortisone Allergy (Severe, Verified 08/24/20 09:58) Throat swelling nitrofurantoin [From Macrobid] Allergy (Severe, Verified 08/24/20 09:58) Irregular HB, vision changes, diaphoresis erythromycin base Allergy (Intermediate, Verified 08/24/20 09:58) Unknown meperidine [From Demerol] Allergy (Intermediate, Verified 08/24/20 09:58) Unknown Iodinated Contrast Media [Iodinated Contrast Media - Oral and] Allergy (Verified 08/24/20 09:58) Rash iodine Allergy (Verified 08/24/20 09:58) Rash Penicillins Allergy (Verified 08/24/20 09:58) Rash Sulfa (Sulfonamide Antibiotics) Allergy (Verified 08/24/20 09:58) Rash COBEX Allergy (Uncoded 08/24/20 09:58) Anaphylaxis immunizations Allergy (Uncoded 08/24/20 09:58) Unknown Medications lorazepam 0.5 mg tablet 0.25 mg PO DAILY PRN tab 09/07/19 [History Confirmed 08/24/20] metoprolol tartrate 25 mg tablet 12.5 mg PO DAILY PRN tab 08/24/20 [History Confirmed 08/24/20] [facility] Medical History Abrasion of knee, bilateral Anxiety and depression Cataract Cystadenoma Elevated LFTs 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 History of left heart catheterization (08/10/19) History of non-ST elevation myocardial infarction (NSTEMI) History of supraventricular tachycardia History of uterine cancer History of uterine cancer IBS (irritable bowel syndrome) Personal history of colonic polyps Psoriasis Takotsubo cardiomyopathy Vitamin D deficiency Surgical History History of appendectomy History of benign breast tumor History of bilateral oophorectomy History of section History of colonoscopy History of hysterectomy History of tonsillectomy Family History Father , Age 90 Cancer prostate CAD (coronary artery disease) Pacemaker COPD (chronic obstructive pulmonary disease) Brother CAD (coronary artery disease) CABG x 5 Hypertension Heart disease Mother CAD (coronary artery disease) CABG Heart disease CVA (cerebral vascular accident) Cancer rectal Social History Smoking Status: Never smoker alcohol intake: never substance use type: does not use caffeine: No what type of physical activity do you participate in: walking and weight training frequency: daily seatbelt use: always do you feel safe at home: Yes additional social history: - retired ROS Const Const: Negative for fatigue, weakness, frequent falls, excessive sweating, weight gain or weight loss Eyes Eyes: Negative for transient loss of vision, blurry vision or change in vision ENT ENT: Negative for dizziness or balance problems Cardio Chest Pain: No Palpitations: No Edema: None Muscle aches with walking: None Resp Respiratory: Negative for SOB with activity or SOB at rest GI GI: Negative vomiting or vomiting blood/hematemesis : Negative for hematuria Musc Musc: Negative for muscle aches/ myalgia, muscle weakness, joint pain or balance problems Skin Skin: Negative non-healing lesions or rash Neuro Neuro: Negative for dizziness, lightheadedness, orthostatic symptoms, frequent falls, weakness or blurry vision Waldemar Hematologic/Lymphatic: Negative for easy bleeding Endo Endo: Negative for fatigue or excessive sweating Psych Psych: Negative for anxiety or depression Allergy Allergy/Immunology: Negative for hives and Negative for rash Cardiology Exam Const Appearance: cooperative, healthy appearing, comfortable, no acute distress, well developed and well groomed Nutritional Appearance: thin Orientation: alert, awake and oriented x3 Head Head: normal to inspection, normocephalic and atraumatic Ears: hearing grossly normal bilaterally Nose: external nose normal Face and Sinus: face symmetric Eyes Eyelids: eyelids normal Conjunctivae: conjunctivae normal Pupils: PERRL EOM: EOM intact bilaterally Neck Neck: normal visual inspection and full ROM Carotids: normal carotid upstroke Chest Chest inspection: normal inspection of the chest, symmetric chest movement and normal respiratory effort Auscultation: Bilateral: Clear to Auscultation Cardio Palpation: normal PMI Rate: regular rate Rhythm: regular rhythm and ectopic beats Heart sounds: S1 normal and S2 normal GI GI: normal to inspection, soft and bowel sounds present Neuro General: patient alert, patient awake, patient oriented x3 and moves all extremities Skin Skin: no rashes or lesions noted Extremities Pulses: Normal: Right Radial Pulse and Left Radial Pulse Lower Extremity Edema: None: Bilateral Psych Psychological: normal affect Assessment and Plan Assessment and Plan (1) Takotsubo cardiomyopathy: Status: Acute Plan - Dr. Alex Al MD: At the present time she appears be doing reasonably well overall from a cardiac standpoint. Her most recent echocardiogram was reviewed. Her overall LV systolic function appear to improve. At the moment she is going to continue her medical management. She may attempt to take her beta-akdi on a nightly basis as long she tolerates it to assist with her concerns of her anxiety and her vital sign fluctuation. (2) History of coronary vasospasm: Status: Chronic Plan - Dr. Alex Al MD: She has had no obvious recurrent events of any coronary artery related issues. At the present time she will continue her medical management. It does not appear she requires additional cardiac diagnostic studies/therapeutic intervention. (3) Essential hypertension: Status: Chronic Plan - Dr. Alex Al MD: She will continue to monitor her vital signs. She is continuing to adjust her medicines to try and bring her anxiety level and subsequently her vital signs under a more consistent control. In the meantime she states she is going to be evaluated by [facility] functional medicine to assist with her concerns of anxiety and its etiology and how better to care for this. Plan Details Additional Comments: Thank you for allowing me to participate in the care of your patient. Please don't hesitate to call if any issues arise. This note was generated using a voice recognition system and there may be incorrect words, spelling or punctuation that were not noted when reviewing the office note prior to saving. Follow Up: 6 Months (PFM) Coding Level of Care Code Off vis,est,level 3 Diagnoses Takotsubo cardiomyopathy I51.81 History of coronary vasospasm Z86.79 Essential hypertension I10 Coding Level of Care Code Off vis,est,level 3 Diagnoses Takotsubo cardiomyopathy I51.81 History of coronary vasospasm Z86.79 Essential hypertension I10 Supplemental Info Supplemental Information Echocardiogram: 11-14-2019 Interpretation Summary Left ventricular systolic function is normal. The estimated ejection fraction is 65 %. Anterior leaflet diffuse mitral valve thickening. The mitral valve chordae are thickened and/or calcified. Mild mitral valve prolapse. Mild (1+) mitral valve insufficiency. Mild tricuspid valve insufficiency. Mild diffuse aortic valve thickening. Trivial aortic valve insufficiency. Mild (1+) eccentric pulmonic valve insufficiency. Right ventricular systolic pressure estimated to be 30 mmHg. Diastolic function is indeterminate. Cardiac catheterization: 08-10-2019 Supplemental Information CONCLUSIONS Non obstructive CAD. Takotsubo cardiomyopathy. EF is 35%. No significant or MR RECOMMENDATIONS DESCRIPTION OF PROCEDURE The patient arrived to the procedure lab. The risks and benefits of the procedure as well as a full description of our services here and current unavailability of surgical backup were fully explained to the patient and/or their significant other prior to the catheterization. The Timeout was completed, verifying the correct patient and procedure. The patient's procedural site was prepped and draped in the usual fashion. Local anesthetic was given subcutaneously to right radial region with Lidocaine 2%. Using a modified Seldinger technique, arterial access was obtained via the right radial artery, a 6Fr sheath was inserted. Left Coronary Artery selective angiography was performed in multiple views using a 5 Fr. JL3.5 catheter. Left Ventriculography was performed in GUZMAN projection using a 5 Fr. JR 4. LV to AO pullback pressures were then recorded. Right Coronary Artery selective angiography was then performed in multiple views using a 5 Fr. JR 4 catheter.The arterial sheath was pulled and a TR Band was applied for hemostasis w/ 13ml air CORONARY ANGIOGRAPHY DOMINANCE: Right Dominant LEFT HEART ASSESSMENT Left Ventricular Ejection Fraction: by LV Gram 35 % Severe hypokinesis to akinesis of the mid LV with normal contraction of the apex and base of the LV consistent with apical sparing Takotsubo cardiomyopathy LEFT MAIN: Mild luminal irregularities LEFT ANTERIOR DESCENDING ARTERY: Mild luminal irregularities CIRCUMFLEX ARTERY: Mild luminal irregularities RIGHT CORONARY ARTERY: Mild luminal irregularities VALVE FINDINGS: No Aortic Valve Stenosis No Mitral Insufficency Labs: LDL Cholesterol 94 mg/dL (0-130) HDL Cholesterol 90 mg/dL (40-) Triglycerides 73 mg/dL (-199) VLDL Cholesterol 15 mg/dL (5-40) Diagnostics: Electrocardiogram Echocardiogram Cardiac Catheterization Pulmonary: No Data to Display 08/24/20 1042 <Electronically signed by Alex Al MD> Date Alex lA MD Cosigner Signature: Date (if applicable) CC: Dr. Cira Ku, DO Cira Ku DO Work Phone: Start: 05-31-2020 End: 06-01-2020 Fibrous Plasterer Office Visit Report Comments: See Note; NOTES: [facility] [address] [place] [address] OFFICE VISIT Date of Service: 05/31/20 MR#: [id number] Acct: [id number] Name: BHARATI HILLIARD Rep #: [id number] : 1940 Provider: Dr. 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) Chief Complaint: NEW annual pap s1ologdm Painter And Decorator Required: No Is patient in pain?: No Allergies cortisone Allergy (Severe, Verified 05/31/20 13:13) Throat swelling nitrofurantoin [From Macrobid] Allergy (Severe, Verified 05/31/20 13:13) Irregular HB, vision changes, diaphoresis erythromycin base Allergy (Intermediate, Verified 05/31/20 13:13) Unknown meperidine [From Demerol] Allergy (Intermediate, Verified 05/31/20 13:13) Unknown Iodinated Contrast Media [Iodinated Contrast Media - Oral and] Allergy (Verified 05/31/20 13:13) Rash iodine Allergy (Verified 05/31/20 13:13) Rash Penicillins Allergy (Verified 05/31/20 13:13) Rash Sulfa (Sulfonamide Antibiotics) Allergy (Verified 05/31/20 13:13) Rash COBEX Allergy (Uncoded 05/31/20 13:13) Anaphylaxis immunizations Allergy (Uncoded 05/31/20 13:13) Unknown Medications lorazepam 0.5 mg tablet 0.25 mg PO DAILY PRN tab 09/07/19 [History Confirmed 05/31/20] metoprolol tartrate 25 mg tablet 12.5 mg PO DAILY tab 10/03/19 [History Confirmed 05/31/20] Is last menstrual period known: No Post menopausal: Yes Patient : No : No PFSH Medical History Takotsubo cardiomyopathy (Acute) History of left heart catheterization (Acute 08/10/19) Abrasion of knee, bilateral (Resolved) History of supraventricular tachycardia (Chronic) History of coronary vasospasm (Chronic) History of non-ST elevation myocardial infarction (NSTEMI) (Chronic) Essential hypertension (Chronic) Personal history of colonic polyps (Resolved) History of uterine cancer (Acute) Anxiety and depression (Chronic) Cataract (Chronic) Elevated LFTs (Chronic) Jamie's disease (Chronic) IBS (irritable bowel syndrome) (Chronic) Psoriasis (Chronic) Cystadenoma (Resolved) History of uterine cancer (Resolved) Vitamin D deficiency (Resolved) Surgical History History of colonoscopy (Chronic) History of appendectomy (Resolved) History of benign breast tumor (Resolved) History of bilateral oophorectomy (Resolved) History of section (Resolved) History of hysterectomy (Resolved) History of tonsillectomy (Resolved) Family History Father , Age 90 Cancer prostate CAD (coronary artery disease) Pacemaker COPD (chronic obstructive pulmonary disease) Brother CAD (coronary artery disease) CABG x 5 Hypertension Heart disease Mother CAD (coronary artery disease) CABG Heart disease CVA (cerebral vascular accident) Cancer rectal Social History (Updated 06/01/20 @ 21:[address] Deb Thomas MD) Smoking Status: Never smoker alcohol intake: never substance use type: does not use caffeine: No what type of physical activity do you participate in: walking, weight training frequency: daily seatbelt use: always do you feel safe at home: Yes additional social history: - retired Pregancy History 2 Elective abortions Hx Para 1 Spontaneous abortions Hx # Term Pregnancies Ectopic pregnancies Hx # Pregnancies Multiple births # of living children Past Pregnancies Del. Date Name GA/Weeks Outcome Route Bth Weight Infant Gen Labor Lgth Anesthesia Del Locatn Provider FOB Unknown 1975 Elizabeth Velasquez live - full term HPI Encounter for routine gynecological examination: Details: BHARATI HILLIARD is a 80 year old who presents for annual exam. she had endometrial ca diagnosed by Dr Jack in [address] larson, which recommended q 6 month paps x 5 years Last PAP: nl History of abnormal PAP: no Last mammogram: nl History of abnormal mammogram: no Colon cancer screening: up to date Other preventative health care screenings: sees regularly ROS Const Constitutional: Reports as per HPI; denies fatigue, increased appetite, poor appetite, weight gain or weight loss Cardio Card: Denies chest pain Resp Resp: Denies cough or dyspnea GI GI: Reports as per HPI; denies abdominal pain, bloating, constipation, nausea or vomiting : Reports as per HPI and other; denies difficulty urinating, painful urination, blood in urine, nipple discharge, pelvic pain, prolapse symptoms, urinary frequency, urinary incontinence, urinary urgency, vaginal discharge, vaginal dryness, vaginal odor or vaginal itching Skin Skin/Breast: Denies changing lesions, breast lump, breast pain, breast skin changes or nipple discharge Psych Psych: Denies anxiety or depression Exam Const General: cooperative, healthy appearing, comfortable, no acute distress, well developed, well groomed [facility] Head: normal to inspection, normocephalic Ears: hearing grossly normal bilaterally, external ears normal Nose: external nose normal Face and sinus: normal facial exam Neck Neck: normal visual inspection, full ROM, no lymphadenopathy Thyroid: thyroid normal Chest Chest palpation inspection: normal inspection of the chest Breast inspection: normal inspection of the breasts, normal inspection of the axillae Breast palpation: normal palpation of the breasts, normal palpation of the axillae, no axillary lymphadenopathy Resp Effort Inspection: normal respiratory effort GI Inspection: normal to inspection, non-distended Palpation: soft, no hepatosplenomegaly, no guarding General: bladder normal to palpation External Female Exam: normal external appearance, normal appearance of the urethra, no lesions Urethra: normal appearance of the urethra, normal palpation Speculum Exam - Vagina: normal appearance of the vagina, normal vaginal discharge Bimanual Exam- Vagina Uterus: bladder normal to palpation Bimanual Exam- Adnexa, other: normal adnexae, no adnexal masses, adnexae non-tender Skin General: no rashes or lesions noted Neuro General: alert, moves all extremities, no focal motor deficits Extrem General: normal to inspection, no pedal edema Psych Appearance: grossly normal Mental Status: mental status grossly normal Affect: normal affect Speech and Movement: speech and movement normal Attitude: cooperative Assessment Plan 1. Encounter for gynecological examination with abnormal finding Z01.411 2. Endometrial cancer C54.1 05/09. 1A no chemo/radtn, hyst by . paps q 6 months x 5 years. 3. 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 [address] Echo Complete 11/14/19 1259 MR#: [id number] Acct: [id number] Name: BHARATI HILLIARD Rep #: [id number] : 1940 79 From: Alex Al MD Attending Dr: Dr. Alex Al MD Status: G [facility] Ordering Dr: Alex Al MD Date: 11/14/19 Location: [facility] Sex: F C Admitted: Reason For Study: Cardiomyopathy Procedure This was a 2D Doppler, Color Flow transthoracic echocardiogram. The exam was of adequate technical quality. Exam performed in department. Left Ventricle Normal LV size. Left ventricular systolic function is normal. The estimated ejection fraction is 65 %. Diastolic function is indeterminate. No regional wall motion abnormalities noted. Right Ventricle Normal RV size. Normal systolic function. Atria Normal left atrium. Normal right atrium. No doppler evidence for ASD. Mitral Valve There is no mitral annular calcification. Anterior leaflet diffuse mitral valve thickening. The mitral valve chordae are thickened and/or calcified. Mild mitral valve prolapse. Mild (1+) mitral valve insufficiency. Tricuspid Valve Normal tricuspid valve. Mild tricuspid valve insufficiency. Right ventricular systolic pressure estimated to be 30 mmHg. Aortic Valve Trisinus/trileaflet aortic valve. Mild diffuse aortic valve thickening. Trivial aortic valve insufficiency. Pulmonic Valve The pulmonic valve is not well visualized. Mild (1+) eccentric pulmonic valve insufficiency. Great Vessels Normal sized aortic root. Pericardium/Pleural No pericardial effusion. MMode/2D Measurements Calculations LVIDd: 3.1 cm IVSd: 0.81 cm Ao root diam: 3.1 cm LVIDs: 1.8 cm LVPWd: 0.84 cm RVDd: 2.4 cm FS: 41.5 % LAV(MOD-bp): 36.3 ml LVAd ap4: 18.3 cm2 SV(MOD-sp4): 26.7 ml LAV(MOD-bp) Indexed: 25.5 ml/m2 EDV(MOD-sp4): 44.0 ml LAV(MOD-sp2): 37.3 ml EDV(sp4-el): 44.9 ml LAV(MOD-sp4): 32.7 ml LVAs ap4: 10.9 cm2 ESV(MOD-sp4): 17.4 ml ESV(sp4-el): 17.5 ml EF(MOD-sp4): 60.6 % EF(sp4-el): 61.0 % SV(sp4-el): 27.4 ml LA A4 area: 12.9 cm2 LA dimension(2D): 2.7 cm RA A4 area: 11.5 cm2 Doppler Measurements Calculations MV E max sabina: 110.1 cm/sec Lat Peak E' Sabina: 7.7 cm/sec Med Peak E' Sabina: 7.0 cm/sec MV A max sabina: 90.2 cm/sec E/E' lat: 14.3 E/E' med: 15.6 MV E/A: 1.2 Ao V2 max: 131.4 cm/sec AI max sabina: 406.4 cm/sec LV V1 max: 103.4 cm/sec Ao max P.9 mmHg AI max P.1 mmHg LV V1 max P.3 mmHg AI dec slope: 247.3 cm/sec2 AI P1/2t: 481.3 msec PA V2 max: 100.4 cm/sec TR max sabina: 257.5 cm/sec TR max P.5 mmHg Interpretation Summary Left ventricular systolic function is normal. The estimated ejection fraction is 65 %. Anterior leaflet diffuse mitral valve thickening. The mitral valve chordae are thickened and/or calcified. Mild mitral valve prolapse. Mild (1+) mitral valve insufficiency. Mild tricuspid valve insufficiency. Mild diffuse aortic valve thickening. Trivial aortic valve insufficiency. Mild (1+) eccentric pulmonic valve insufficiency. Right ventricular systolic pressure estimated to be 30 mmHg. Diastolic function is indeterminate. _ Ordering Physician: Alex Al Referring Physician: Cira Ku M.D. Performed By: Laura Phillips RDCS 11/14/191736 Date Alex Al MD CC: Dr. Cira Ku, DO; Dr. Alex Al MD Date Dictated: 11/14/19 1259 Date Transcribed: 11/14/191736 Salvage Repairer: Signed Cira Ku Start: 09-07-2019 End: 09-07-2019 12 [place] [facility] [place] See Note; NOTES: [address] [address] 12 Lead E[place] [facility] [place] 09/07/19 0952 MR#: [id number] Acct: [id number] Name: BHARATI HILLIARD Rep #: [id number] : 1940 79 From: Alex Al MD Attending Dr: Dr. Alex Al MD Status: DE P AMB Ordering Dr: Alex Al MD Date: 09/07/19 [place] [facility] Sex: F C Admitted: BMS/12 Lead EKG [place] [facility] Report Interpretation Si nus rhythm with PSVCsAnterior infarct -age undetermined - cannot be excludedNegative T-waves -Possible Lateral ischemia. ABNORMAL Electronically signed on 09/07/2019 at 11:46 by Alex Al Software Version [id number] 09/07/19 1205 Date Alex Al MD CC: Dr. Cira Ku, DO Date Dictated: 09/07/1952 Date Transcribed: 09/07/19951 Salvage Repairer: PM Signed Cira Ku Start: 09-07-2019 End: 09-07-2019 Cardiology Visit Report Comments: See Note; NOTES: [facility] [address] [place] [address] OFFICE VISIT Date of Service: 09/07/19 MR#: [id number] Acct: [id number] Name: BHARATI HILLIARD Rep #: [id number] : 1940 Provider: Dr. Alex ballesteros MD Age/Sex: 79/F Location: [facility] [place] Status: Signed HPI HPI History of Present Illness Details: This is a 78-year-old white female white female who presents for outpatient cardiovascular consultation based upon a history of a coronary vasospasm with a non-ST segment elevation AK with concerns of palpitation and rapid heart rates superimposed upon a history of anxiety. As you recall, she is previously been followed by [facility] cardiology. She states approximately 15 years ago while living in [place], [place], she experienced chest discomfort. She states she was evaluated at the hospital. She underwent diagnostic cardiac catheterization. She was told that she had a coronary artery vasospasm event. She was treated medically and released. Since that time she states she has never had to return to the cardiac catheterization laboratory. She has had noninvasive studies performed through the [facility] system. It appears in November 2009 she had a transthoracic echocardiogram performed. Her left ventricle was thought to be normal with an LVEF of 75% with findings of trivial to mild MR, mild TR, and mild aortic valve sclerosis and trivial PI. She had a stress echocardiogram performed in October 2009. According to the report it was considered negative for myocardial ischemia. She has had ambulatory monitors performed. In November 2011 she had a 48-hour Holter monitor which demonstrated predominantly sinus rhythm with a comment of PACs and PVCs but no atrial dysrhythmia, SVT, or complex ventricular ectopy, or pauses. It appears that she had a 24-hour Holter monitor performed in July 2010. At that time it appeared there were similar type findings. She had a 30-day monitor performed in July 2010. At that time she had rare atrial and ventricular ectopy with a report of no atrial fibrillation and no SVT. However, she states she has been diagnosed with SVT in the past. She states that she had a renal artery duplex study performed in the past based on concerns of hypertension. A study was found through the [employer] system from 2018. At that point in time there was no report of renal artery stenosis. The only comment about the abdominal aorta was that it was patent at the level of the renal arteries. She does not recall being checked for any abdominal aortic aneurysm in the past. She was hospitalized at the [facility] in July of this year. She underwent cardiovascular consultation. She underwent diagnostic cardiac catheterization by Dr. Dubon. She was found to have no angiographically significant CAD but findings compatible with an underlying stress-induced cardiomyopathy/Takotsubo syndrome. She was asked to be treated medically with beta-blockers and GURDEEP inhibitors. As noted in the past she states she has been intolerant to medications on a daily basis secondary to concerns of hypotension. Thus she has only been taking her low-dose beta-kadi on a as needed basis depending upon her blood pressures. She has not attempted the GURDEEP inhibitor due to fear of hypotension. She states she remains anxious. She does not use Lorazepam on a as needed basis for her anxiety. She had an ECG in the office today. She was noted to be in sinus rhythm with PSVCs with an anterior AK pattern of indeterminate age cannot be excluded and a T wave pattern potentially compatible with lateral myocardial ischemia. Her most recent cardiac catheterization report is noted below. It was reviewed with her. 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: No Accompanied by: Self Allergies cortisone Allergy (Severe, Verified 09/07/19 09:40) Throat swelling nitrofurantoin [From Macrobid] Allergy (Severe, Verified 09/07/19 09:40) Irregular HB, vision changes, diaphoresis erythromycin base Allergy (Intermediate, Verified 09/07/19 09:40) Unknown meperidine [From Demerol] Allergy (Intermediate, Verified 09/07/19 09:40) Unknown Iodinated Contrast Media [Iodinated Contrast Media - Oral and] Allergy (Verified 09/07/19 09:40) Rash iodine Allergy (Verified 09/07/19 09:40) Rash Penicillins Allergy (Verified 09/07/19 09:40) Rash Sulfa (Sulfonamide Antibiotics) Allergy (Verified 09/07/19 09:40) Rash COBEX Allergy (Uncoded 09/07/19 09:40) Anaphylaxis immunizations Allergy (Uncoded 09/07/19 09:40) Unknown Medications lorazepam 0.5 mg tablet 0.25 mg PO DAILY PRN tab 09/07/19 [History Confirmed 09/07/19] metoprolol tartrate 25 mg tablet 12.5 mg PO DAILY PRN tab 09/07/19 [History Confirmed 09/07/19] [facility] Medical History (Updated 09/07/19 @ 09:54 by Norma Guardado) Takotsubo cardiomyopathy (Acute) History of left heart catheterization (Acute 08/10/19) Abrasion of knee, bilateral (Resolved) History of supraventricular tachycardia (Chronic) History of coronary vasospasm (Chronic) History of non-ST elevation myocardial infarction (NSTEMI) (Chronic) Essential hypertension (Chronic) Personal history of colonic polyps (Resolved) History of uterine cancer (Acute) Anxiety and depression (Chronic) Cataract (Chronic) Elevated LFTs (Chronic) Jamie's disease (Chronic) IBS (irritable bowel syndrome) (Chronic) Psoriasis (Chronic) Cystadenoma (Resolved) History of uterine cancer (Resolved) Vitamin D deficiency (Resolved) Surgical History History of colonoscopy (Chronic) History of appendectomy (Resolved) History of benign breast tumor (Resolved) History of bilateral oophorectomy (Resolved) History of section (Resolved) History of hysterectomy (Resolved) History of tonsillectomy (Resolved) Family History Father , Age 90 Cancer prostate CAD (coronary artery disease) Pacemaker COPD (chronic obstructive pulmonary disease) Brother CAD (coronary artery disease) CABG x 5 Hypertension Heart disease Mother CAD (coronary artery disease) CABG Heart disease CVA (cerebral vascular accident) Cancer rectal Social History (Updated 09/07/19 @ 12:[address] Alex Al MD) Smoking Status: Never smoker alcohol intake: never substance use type: does not use caffeine: No ROS Const Const: Negative for fatigue, weakness, frequent falls, excessive sweating, weight gain or weight loss Eyes Eyes: Negative for transient loss of vision, blurry vision or change in vision ENT ENT: Negative for dizziness or balance problems Cardio Chest Pain: No Palpitations: No Edema: None Muscle aches with walking: None Resp Respiratory: Negative for SOB with activity or SOB at rest GI GI: Negative vomiting or vomiting blood/hematemesis : Negative for hematuria Musc Musc: Negative for muscle aches/ myalgia, muscle weakness, joint pain or balance problems Skin Skin: Negative non-healing lesions or rash Neuro Neuro: Negative for dizziness, lightheadedness, orthostatic symptoms, frequent falls, weakness or blurry vision Waldemar Hematologic/Lymphatic: Negative for easy bleeding Endo Endo: Negative for fatigue or excessive sweating Psych Psych: Negative for anxiety or depression Allergy Allergy/Immunology: Negative for hives, Negative for rash Cardiology Exam Const Appearance: cooperative, healthy appearing, comfortable, no acute distress, well developed and well groomed Nutritional Appearance: thin Orientation: alert, awake and oriented x3 Head Head: normal to inspection, normocephalic and atraumatic Ears: hearing grossly normal bilaterally Nose: external nose normal Face and Sinus: face symmetric Eyes Eyelids: eyelids normal Conjunctivae: conjunctivae normal Pupils: PERRL EOM: EOM intact bilaterally Neck Neck: normal visual inspection and full ROM Carotids: normal carotid upstroke Chest Chest inspection: normal inspection of the chest, symmetric chest movement and normal respiratory effort Auscultation: Bilateral: Clear to Auscultation Cardio Palpation: normal PMI Rate: regular rate Rhythm: regular rhythm Heart sounds: S1 normal and S2 normal GI GI: normal to inspection, soft, bowel sounds present and pulsatile mass Neuro General: alert, awake, oriented x3 and moves all extremities Skin Skin: no rashes or lesions noted Extremities Pulses: Normal: Right Radial Pulse, Left Radial Pulse Lower Extremity Edema: None: Bilateral Psych Psychological: normal affect Assessment Plan 1. Takotsubo cardiomyopathy I51.81 Plan At the present time it appears she has had an episode of a stress-induced cardiomyopathy/Takotsubo syndrome. She was encouraged to take her beta-kadi therapy on a routine basis to hopefully assist her left ventricle and recovering. She states she will try to do so but states that it will depend upon her blood pressure as she has a fear of her blood pressure being too low. She is not going to attempt her GURDEEP inhibitor therapy at this time secondary to her concern of drug- induced hypotension. She will be asked to have a follow-up echocardiogram in the future to reassess her left ventricular wall motion systolic function with the hopes that will demonstrate evidence of improvement. Orders Orders: 12 Lead EKG performed by [facility] Today Echo Complete 2 Months 2. History of supraventricular tachycardia Z86.79 Plan She has a history of SVT. Again she states she is in the past she has been told she can use her beta-kadi on a as needed basis based upon her fear of hypotension. 3. Essential hypertension I10 Plan She does bring with her her blood pressure recordings. She has blood pressures that demonstrate hypotensive blood pressures with systolic blood pressures in the 70 to 80 to 90 mmHg range and then at other times blood pressures that are well within normal limits or actually hypertensive. She states it depends upon her anxiety level as to what her blood pressures may be as well as whether or not she is taking any of her medications such as her beta-blockers. Plan Detail Other Orders Orders: 12 Lead EKG performed by [facility] Today I25.2 Additional Comments She will attempt her beta-kadi therapy. She states she will attend cardiac rehabilitation. She notes she has already made contact with cardiac rehabilitation team. She will have a follow-up echocardiogram to reassess her left ventricular size, wall motion, and systolic function. She will have a future outpatient cardiovascular follow-up appointment as well. She will notify the office of any concerns in the interim. Thank you for allowing me to participate in the care of your patient. Please don't hesitate to call if any issues arise. This note was generated using a voice recognition system and there may be incorrect words, spelling or punctuation that were not noted when reviewing the office note prior to saving. Follow Up 3 Months (PFM) Coding Level of Care Code Off vis,est,level 4 Diagnoses Takotsubo cardiomyopathy I51.81 History of supraventricular tachycardia Z86.79 Essential hypertension I10 Coding Level of Care Code Off vis,est,level 4 Diagnoses Takotsubo cardiomyopathy I51.81 History of supraventricular tachycardia Z86.79 Essential hypertension I10 Supplemental Info Supplemental Information CONCLUSIONS Non obstructive CAD. Takotsubo cardiomyopathy. EF is 35%. No significant or MR RECOMMENDATIONS DESCRIPTION OF PROCEDURE The patient arrived to the procedure lab. The risks and benefits of the procedure as well as a full description of our services here and current unavailability of surgical backup were fully explained to the patient and/or their significant other prior to the catheterization. The Timeout was completed, verifying the correct patient and procedure. The patient's procedural site was prepped and draped in the usual fashion. Local anesthetic was given subcutaneously to right radial region with Lidocaine 2%. Using a modified Seldinger technique, arterial access was obtained via the right radial artery, a 6Fr sheath was inserted. Left Coronary Artery selective angiography was performed in multiple views using a 5 Fr. JL3.5 catheter. Left Ventriculography was performed in GUZMAN projection using a 5 Fr. JR 4. LV to AO pullback pressures were then recorded. Right Coronary Artery selective angiography was then performed in multiple views using a 5 Fr. JR 4 catheter.The arterial sheath was pulled and a TR Band was applied for hemostasis w/ 13ml air CORONARY ANGIOGRAPHY DOMINANCE: Right Dominant LEFT HEART ASSESSMENT Left Ventricular Ejection Fraction: by LV Gram 35 % Severe hypokinesis to akinesis of the mid LV with normal contraction of the apex and base of the LV consistent with apical sparing Takotsubo cardiomyopathy LEFT MAIN: Mild luminal irregularities LEFT ANTERIOR DESCENDING ARTERY: Mild luminal irregularities CIRCUMFLEX ARTERY: Mild luminal irregularities RIGHT CORONARY ARTERY: Mild luminal irregularities VALVE FINDINGS: No Aortic Valve Stenosis No Mitral Insufficency Labs LDL Cholesterol 94 mg/dL (0-130) 08/10/19 HDL Cholesterol 90 mg/dL (40-) 08/10/19 Triglycerides 73 mg/dL (-199) 08/10/19 VLDL Cholesterol 15 mg/dL (5-40) 08/10/19 Diagnostics Electrocardiogram 09/07/19 Cardiac Catheterization 08/10/19 09/07/19 1214 <Electronically signed by Alex Al MD> Date Alex Al MD Cosigner Signature: Date (if applicable) CC: DO Cira Martinez Start: 06-13-2019 End: 06-13-2019 Abdomen/Pel W ORAL Cont Only Comments: See Note; NOTES: [facility] Imaging Services [address] [address] Abdomen/Pel W ORAL Cont Only MR#: [id number] Acct: [id number] Name: BHARATI HILLIARD Rep #: [id number] : 1940 F 79 From: Alvarez Wilson MD PCP: Cira Ku DO Status: REG CLI Study: Abdomen/Pel W ORAL Cont Only Date of Exam: 06/13/19 Exam# [id number] Ordering Dr: Raul Larson STUDY: CT ABDOMEN AND PELVIS WITHOUT CONTRAST REASON FOR EXAM: Female, 79 years old. ENDOMETRIAL/UTERINE CA, VAGINAL BLEEDING, APPENDECTOMY RADIATION DOSAGE (If Supplied By Facility): CTDIvol = ( 6.04 ) mGy, DLP = ( 249.13 ) mGycm TECHNIQUE: Transaxial images were obtained from the dome of the diaphragm to the symphysis pubis without oral contrast, and without intravenous contrast. Sagittal and coronal images were reconstructed. Individualized dose optimization techniques were used for this CT. COMPARISON: Comparison is made with prior examination dated January 05, 2018. FINDINGS: The visualized lung bases are unremarkable. The visualized portions of the heart are within normal limits. Normal liver. Normal gallbladder and extrahepatic biliary system. Normal spleen. Normal pancreas. Normal bilateral adrenal glands. Normal right kidney. Normal left kidney. Normal visualized stomach. Normal small intestine. Normal colon. The patient is status post appendectomy. There is diffuse atherosclerotic calcification of the abdominal aorta, without a demonstrated aneurysm. Normal inferior vena cava. Normal retroperitoneum. Normal urinary bladder. There is absence of the uterus consistent with a prior hysterectomy. Normal abdominal wall. Normal osseous structures. CT/Abdomen/Pel W ORAL Cont Only IMPRESSION: No acute abnormality is seen. Stable examination Electronically Signed: Alvarez Wilson, at 13:47 EDT , Service support , CC: Raul Larson; Cira Ku DO Salvage Repairer: Signed Cira Ku Work Phone: Start: 01-18-2019 End: 01-18-2019 Urgent Care Visit Report Comments: See Note; NOTES: [facility] [address] [place] [address] [address] [place] [address] OFFICE VISIT Date of Service: 01/18/19 MR#: [id number] Acct: [id number] Name: BHARATI HILLIARD Rep #: [id number] : 1940 Provider: Charly HARRY Age/Sex: 78/F Location[facility] Status: Signed Intake Vital Signs01/18/19 Body Mass Index (BMI) 18.3 01/18/19 Height 5 ft 2 in 01/18/19 Weight: 100 lb 01/18/19 Body Mass Index (BMI) 18.3 01/18/19 Blood Pressure 148/86 H Intake Visit Reasons: BACK PAIN/ PT FELL 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 Accompanied by: OTHER Is patient in pain?: Yes Allergies cortisone Allergy (Severe, Verified 01/18/19 12:42) Throat swelling nitrofurantoin [From Macrobid] Allergy (Severe, Verified 01/18/19 12:42) Irregular HB, vision changes, diaphoresis erythromycin base Allergy (Intermediate, Verified 01/18/19 12:42) Unknown meperidine [From Demerol] Allergy (Intermediate, Verified 01/18/19 12:42) Unknown Iodinated Contrast Media [Iodinated Contrast Media - Oral and] Allergy (Verified 01/18/19 12:42) Rash iodine Allergy (Verified 01/18/19 12:42) Rash Penicillins Allergy (Verified 01/18/19 12:42) Rash Sulfa (Sulfonamide Antibiotics) Allergy (Verified 01/18/19 12:42) Rash COBEX Allergy (Uncoded 01/18/19 12:42) Anaphylaxis immunizations Allergy (Uncoded 01/18/19 12:42) Unknown Medications lorazepam 0.5 mg tablet 0.5 mg PO DAILY PRN tab 10/14/18 [History Confirmed 01/18/19] metoprolol tartrate 25 mg tablet 12.5 mg PO DAILY #90 tab 10/27/18 [Rx Confirmed 01/18/19] nitroglycerin 0.4 mg sublingual tablet 0.4 mg SUBLINGUAL Q5-15M PRN #25 tab 10/27/18 [Rx Confirmed 01/18/19] [facility] Medical History History of supraventricular tachycardia (Chronic) History of coronary vasospasm (Chronic) History of non-ST elevation myocardial infarction (NSTEMI) (Chronic) Essential hypertension (Chronic) Personal history of colonic polyps (Resolved) History of uterine cancer (Acute) Anxiety and depression (Chronic) Cataract (Chronic) Elevated LFTs (Chronic) Jamie's disease (Chronic) IBS (irritable bowel syndrome) (Chronic) Psoriasis (Chronic) Cystadenoma (Resolved) History of uterine cancer (Resolved) Vitamin D deficiency (Resolved) Surgical History History of tonsillectomy (Acute) History of colonoscopy (Chronic) History of appendectomy (Resolved) History of benign breast tumor (Resolved) History of bilateral oophorectomy (Resolved) History of section (Resolved) History of hysterectomy (Resolved) Family History Father , Age 90 Cancer prostate CAD (coronary artery disease) Pacemaker COPD (chronic obstructive pulmonary disease) Brother CAD (coronary artery disease) CABG x 5 Hypertension Heart disease Mother CAD (coronary artery disease) CABG Heart disease CVA (cerebral vascular accident) Cancer rectal Social History (Updated 01/18/19 @ 13:54 by PIERO Whitman) Smoking Status: Never smoker alcohol intake: never substance use type: does not use caffeine: No HPI HPI Chief Complaint: FALL Details: BHARATI HILLIARD, is a 78 F who presents to the office today for complaint of left shoulder pain after falling on the sidewalk today. Patient states that she was going out to eat with her daughter and tripped over the sidewalk falling and hitting her palms and knees. She states that the palms of her hands and her knees feel fine with only 2 small abrasions to her knees however she has more concern for her left scapula. She states that when she moves her arm she feels a clicking and sharp pain however denies any loss of range of motion or numbness/tingling. She has had no previous issues with the left shoulder. No other associated symptoms or alleviating/aggravating factors. ROS Const Constitutional: Positive for other (6 system ROS completed with pertinent findings in HPI otherwise normal.) Exam Const General: cooperative, healthy appearing [facility] Head: normocephalic, atraumatic Ears: hearing grossly normal bilaterally Nose: external nose normal Face and sinus: normal facial exam, face symmetric Mouth: oral mucosae normal Throat: posterior oropharynx normal Resp Effort AND Inspection: normal respiratory effort Auscultation: Bilateral: Clear to Auscultation Cardio Palpation: normal PMI Rate: regular rate Rhythm: regular rhythm Skin General: no rashes or lesions noted Neuro General: alert, CN's II-XI intact bilaterally Extrem General: full ROM, normal capillary refill, normal exam except as noted, no joint enlargement Other: Bilateral abrasions to the knees with no bleeding. The wounds were cleansed with Hibiclens and covered with bacitracin and bandages. The left scapula with pinpoint pain however no obvious deformity upon palpation or loss of range of motion to the left shoulder. Full range of motion of bilateral wrists and sensation and appropriate distal pulses and two second capillary refill to bilateral hands. Psych Appearance: grossly normal Mental Status: mental status grossly normal Assessment AND Plan Problems 1. Muscle strain of left scapular region, initial encounter S46.912A Status Acute 2. Abrasion of knee, bilateral S80.211A; S80.212A Status Acute Plan X-ray of the left scapula read interpreted by myself findings no acute osseous abnormalities. Patient advised of symptomatic management techniques including but not limited to rest, ice, heat and to follow-up with her PCP in 7 to 10 days if the pain has not improved or sooner should it worsen. Patient verbalized understanding and agreement with all the above. Orders Orders: Coding Level of Care Code Off vis,est,level 4 Diagnoses Muscle strain of left scapular region, initial encounter S46.912A Encounter type: initial encounter Abrasion of knee, bilateral S80.211A; S80.212A 01/18/19 1354 <Electronically signed by Charly HARRY> Date Charly HARRY Cosigner Signature: Date (if applicable) CC: Cira Ku Start: 01-18-2019 End: 01-18-2019 Scapula Comments: See Note; NOTES: [facility] Imaging Services [address] [place] [address] Scapula MR#: [id number] Acct: [id number] Name: BHARATI HILLIARD Rep #: [id number] : 1940 F 78 From: Raven Purdy MD PCP: Cira Ku DO Status: REG CLI Study: Scapula Date of Exam: 01/18/19 Exam# [id number] Ordering Dr: Charly Holman STUDY: X-RAY - LEFT SCAPULA REASON FOR EXAM: Female, 78 years old. TECHNIQUE: view(s) of the scapula were obtained. COMPARISON: None. FINDINGS: Normal scapula, including the osseous glenoid rim, acromion, scapular neck, spine, coracoid process, and visualized body. Normal glenohumeral articulation. Normal acromioclavicular joint. Normal visualized humeral head. Normal visualized pulmonary apex. RAD/Scapula IMPRESSION: Normal plain film x-ray examination of the scapula. Electronically Signed: Raven Purdy, at 13:54 EST Tel , Service support , CC: Charly HARRY; Cira Ku DO Salvage Repairer: Signed Cira Ku Start: 10-29-2018 End: 10-29-2018 SCREEN MAMM (CAD) W/DONTE BILAT Comments: See Note; NOTES: [facility] Services [address] [place] [id number] SCREEN MAMM (CAD) W/DONTE BILAT MR#: [id number] Acct: [id number] Name: BHARATI HILLIARD Rep #: [id number] : 1940 F 78 From: Alvarez Wilson MD PCP: Cira Ku DO [facility]: SCREEN MAMM (CAD) W/DONTE BILAT Date of Exam: 10/29/18 Exam# [id number] Ordering Dr: Cira Ku DO MAMMOGRAPHY - BILATERAL SCREENING REASON FOR EXAM: Female, 78 years old. Routine annual screening examination. PERTINENT HISTORY: Non-contributory. Remote left excisional breast biopsy. Patient has a history of uterine carcinoma. TECHNIQUE: Digital bilateral breast donte (3D mammographic acquisition) in the CC and MLO projections. 2-D mediolateral oblique (MLO) and craniocaudad (CC) views of both breasts were obtained. CAD: Full Field Digital Mammography with Computer Added Detection was performed. COMPARISON: Comparison is made with prior study dated February 20, 2010. FINDINGS: Breast Composition: The breasts are heterogeneously dense, which may obscure small masses. There are no dominant masses or suspicious calcifications. No other significant abnormalities are identified. There has been no significant change since the prior study. BI/SCREEN MAMM (CAD) W/DONTE BILAT IMPRESSION: Stable bilateral screening mammogram. Yearly follow-up mammogram recommended. (A) ASSESSMENT CATEGORY: BIRADS Category 1: Negative. A letter regarding these results will be sent to the patient by the facility within 30 days. Approximately 10% of breast cancers are not detected by mammography. A normal mammogram should not delay biopsy of a clinically suspicious abnormality. [id number] Electronically Signed: Alvarez Wilson, at 11:03 EDT , Service support , CC: Cira Ku DO Salvage Repairer: Signed Cira Ku Work Phone: Start: 10-15-2018 End: 10-15-2018 Cardiology Visit Report Comments: See Note; NOTES: [facility] [address] [place] [address]. [address] [place] [address] OFFICE VISIT Date of Service: 10/15/18 MR#: [id number] Acct: [id number] Name: BHARATI HILLIARD Rep #: [id number] : 1940 Provider: Alex Al MD Age/Sex: 78/F Location[facility] Status: Signed [facility] History of Present Illness Details: This is a 78-year-old white female white female who presents for outpatient cardiovascular consultation based upon a history of a coronary vasospasm with a non-ST segment elevation AK with concerns of palpitation and rapid heart rates superimposed upon a history of anxiety. She is previously been followed by [facility] cardiology. She states approximately 15 years ago while living in [place], [place], she experienced chest discomfort. She states she was evaluated at the hospital. She underwent diagnostic cardiac catheterization. She was told that she had a coronary artery vasospasm event. She was treated medically and released. Since that time she states she has never had to return to the cardiac catheterization laboratory. She has had noninvasive studies performed through the [facility] system. It appears in November 2009 she had a transthoracic echocardiogram performed. Her left ventricle was thought to be normal with an LVEF of 75% with findings of trivial to mild MR, mild TR, and mild aortic valve sclerosis and trivial PI. She had a stress echocardiogram performed in October 2009. According to the report it was considered negative for myocardial ischemia. She has had ambulatory monitors performed. In November 2011 she had a 48-hour Holter monitor which demonstrated predominantly sinus rhythm with a comment of PACs and PVCs but no atrial dysrhythmia, SVT, or complex ventricular ectopy, or pauses. It appears that she had a 24-hour Holter monitor performed in July 2010. At that time it appeared there were similar type findings. She had a 30-day monitor performed in July 2010. At that time she had rare atrial and ventricular ectopy with a report of no atrial fibrillation and no SVT. However, she states she has been diagnosed with SVT in the past. She states that she has been told that based upon her history of anxiety, SVT, and her previous coronary arteries vasospasm event that she could be treated medically with as needed beta-blockers. She states she has done this for years with no adverse event. She notes it helps her symptoms and her findings. She denies any ongoing chest discomfort. She has had no issues of overt CHF or pulmonary edema. There has been no near syncope or syncope. She brings with her her home blood pressure recordings which are either within normal range or low. She does not appear to run hypertensive at home. She states her blood pressure only goes up when she goes to the physician's office as she becomes anxious in the physician's office. She states that she had a renal artery duplex study performed in the past based on concerns of hypertension. A study was found through the [facility] system from 2017. At that point in time there was no report of renal artery stenosis. The only comment about the abdominal aorta was that it was patent at the level of the renal arteries. She does not recall being checked for any abdominal aortic aneurysm in the past. It is noted on examination she has a pulsatile abdominal aorta. This may be because she is thin and it can be palpated. However, again, she states she does not believe she has been checked for an abdominal aortic aneurysm in the past. She had an ECG in the office today. She was in sinus rhythm. She had an RSR prime pattern-nondiagnostic, and a nonspecific ST segment abnormality. Intake Vital Signs10/15/18 Height 5 ft 2 in 10/15/18 Weight: 100 lb 10/15/18 Body Mass Index (BMI) 18.3 10/15/18 Blood Pressure 162/66 H 10/15/18 Blood Pressure Location Lt brachial Intake Visit Reasons: Establish care/Ref. Donnie Painter And Decorator Required: No Accompanied by: None Is patient in pain?: No Allergies cortisone Allergy (Severe, Verified 10/15/18 08:35) Throat swelling nitrofurantoin [From Macrobid] Allergy (Severe, Verified 10/15/18 08:35) Irregular HB, vision changes, diaphoresis erythromycin base Allergy (Intermediate, Verified 10/15/18 08:35) Unknown meperidine [From Demerol] Allergy (Intermediate, Verified 10/15/18 08:35) Unknown Iodinated Contrast Media [Iodinated Contrast Media - Oral and] Allergy (Verified 10/15/18 08:35) Rash iodine Allergy (Verified 10/15/18 08:35) Rash Penicillins Allergy (Verified 10/15/18 08:35) Rash Sulfa (Sulfonamide Antibiotics) Allergy (Verified 10/15/18 08:35) Rash COBEX Allergy (Uncoded 10/15/18 08:35) Anaphylaxis Medications biotin 1 mg capsule 1 mg PO DAILY 10/14/18 [History Confirmed 10/15/18] cholecalciferol (vitamin D3) 1,000 unit (25 mcg) tablet 1,000 unit PO DAILY 10/14/18 [History Confirmed 10/15/18] lactobacillus combination no.8 3 billion cell capsule 3,000 mmu cells PO DAILY 10/14/18 [History Confirmed 10/15/18] lorazepam 0.5 mg tablet 0.5 mg PO DAILY PRN tab 10/14/18 [History Confirmed 10/15/18] metoprolol tartrate 25 mg tablet 12.5 mg PO DAILY PRN tab 10/14/18 [History Confirmed 10/15/18] nitroglycerin 0.4 mg sublingual tablet 0.4 mg SUBLINGUAL Q5-15M PRN 10/14/18 [History Confirmed 10/15/18] selenium 200 mcg tablet 200 mcg PO DAILY 10/14/18 [History Confirmed 10/15/18] ascorbate calcium (vitamin C) 500 mg tablet 500 mg PO DAILY PRN 10/15/18 [History Confirmed 10/15/18] glutathione 50 mg capsule 50 mg PO DAILY PRN cap 10/15/18 [History] vitamin B complex tablet 1 tab PO DAILY 10/15/18 [History Confirmed 10/15/18] [facility] Medical History History of supraventricular tachycardia (Chronic) History of coronary vasospasm (Chronic) History of non-ST elevation myocardial infarction (NSTEMI) (Chronic) Essential hypertension (Chronic) Personal history of colonic polyps (Resolved) Cystadenoma (Resolved) History of uterine cancer (Resolved) Vitamin D deficiency (Resolved) Anxiety and depression (Chronic) Cataract (Chronic) Elevated LFTs (Chronic) Jamie's disease (Chronic) IBS (irritable bowel syndrome) (Chronic) Psoriasis (Chronic) Surgical History (Updated 10/15/18 @ 08:45 by Paige Perez) History of benign breast tumor (Resolved) History of colonoscopy (Chronic) History of appendectomy (Resolved) History of bilateral oophorectomy (Resolved) History of section (Resolved) History of hysterectomy (Resolved) Family History Father , Age 90 Cancer prostate CAD (coronary artery disease) Pacemaker COPD (chronic obstructive pulmonary disease) Brother CAD (coronary artery disease) CABG x 5 Hypertension Heart disease Mother CAD (coronary artery disease) CABG Heart disease CVA (cerebral vascular accident) Cancer rectal Social History (Updated 10/15/18 @ 09:36 by Alex Al MD) Smoking Status: Never smoker alcohol intake: never substance use type: does not use caffeine: No ROS Const Const: Negative for fatigue, weakness, headache(s), frequent falls, difficulty sleeping or excessive sweating Eyes Eyes: Negative for loss of peripheral vision, transient loss of vision, blurry vision, double vision or tunnel vision ENT ENT: Negative for headache(s), dizziness, Nosebleed/epistaxis or balance problems Cardio Chest Pain: No Palpitations: Yes (Only with anxiety) feels like its: fast Edema: None Muscle aches with walking: None Resp Respiratory: Negative for SOB with activity, SOB at rest, SOB orthopnea\SOB lying down, Cough or paroxysmal nocturnal dyspnea GI GI: Negative nausea, vomiting, heartburn or black,tarry stools : Negative for hematuria Musc Musc: Negative for muscle aches/ myalgia, muscle weakness, joint pain or balance problems Skin Skin: Negative non-healing lesions, rash or unusual bruising Neuro Neuro: Negative for dizziness, lightheadedness, near syncope, syncope, frequent falls, headache(s), weakness, blurry vision, double vision or lack of coordination Waldemar Hematologic/Lymphatic: Negative for easy bleeding or easy bruising Endo Endo: Negative for fatigue, excessive sweating or increased thirst/drinking Psych Psych: Negative for anxiety or depression Allergy Allergy/Immunology: Negative for hives, Negative for rash Cardiology Exam Const Appearance: cooperative, healthy appearing, comfortable, no acute distress, well developed and well groomed Nutritional Appearance: thin Orientation: alert, awake and oriented x3 Head Head: normal to inspection, normocephalic and atraumatic Ears: hearing grossly normal bilaterally Nose: external nose normal Face and Sinus: face symmetric Mouth: oral mucosae normal Teeth and gingiva: fair dentition Eyes Eyelids: eyelids normal Conjunctivae: conjunctivae normal Pupils: PERRL EOM: EOM intact bilaterally Neck Neck: normal visual inspection and full ROM Carotids: normal carotid upstroke Chest Chest inspection: normal inspection of the chest, symmetric chest movement and normal respiratory effort Auscultation: Bilateral: Clear to Auscultation Cardio Palpation: normal PMI Rate: regular rate Rhythm: regular rhythm Heart sounds: S1 normal and S2 normal GI GI: normal to inspection, soft, bowel sounds present and pulsatile mass Neuro General: alert, awake, oriented x3 and moves all extremities Skin Skin: no rashes or lesions noted Extremities Pulses: Normal: Right Radial Pulse, Left Radial Pulse Lower Extremity Edema: None: Bilateral Psych Psychological: normal affect Assessment AND Plan 1. History of coronary vasospasm Z86.79 Plan At the present time details of her original cardiovascular event are unavailable for review. An attempt will be made to access them for continuity care purposes. In the meantime she states her present therapy is how she has been treated since her original event. She is done well with no other recurrent events. She wants to continue her current medical management. She states she is very intolerant to multiple medications for a variety of different reasons. Thus she does not want to be on other medications. Orders Orders: 2. History of non-ST elevation myocardial infarction (NSTEMI) I25.2 Plan Again she has had a previous event. The details are unknown. An attempt will be made to retrieve her previous medical records for continuity of care. In the meantime she wants to continue her current medical therapy and follow-up. Orders Orders: 3. History of supraventricular tachycardia Z86.79 Plan She claims to have a history of PSVT. Her previous noninvasive studies from [facility] are as noted above. She states her as needed beta-blockers work well for her anxiety and her tachycardia. She wants to continue this approach at this time. Orders Orders: 4. Essential hypertension I10 Plan Her blood pressures at home appear to be under good control. Thus she will continue to monitor her blood pressures. If her trends are elevated then she will need further adjustment of medications as deemed appropriate. Orders Orders: Plan Detail Other Orders Orders: Other Medications New: Additional Comments She will be scheduled for an abdominal aortic ultrasound, based on her examination, to evaluate for any evidence of abdominal aortic aneurysm. Otherwise she will be scheduled for an outpatient visit approximately 1 year unless needed sooner. Thank you for allowing me to participate in the care of your patient. Please don't hesitate to call if any issues arise. This note was generated using a voice recognition system and there may be incorrect words, spelling or punctuation that were not noted when reviewing the office note prior to saving. Follow Up 10/15/18 (copy of cardiac cath [facility], [place]) 1 Year (PFM) Coding Level of Care Code Off vis,new,level 4 Diagnoses History of coronary vasospasm Z86.79 History of non-ST elevation myocardial infarction (NSTEMI) I25.2 History of supraventricular tachycardia Z86.79 Essential hypertension I10 Coding Level of Care Code Off vis,new,level 4 Diagnoses History of coronary vasospasm Z86.79 History of non-ST elevation myocardial infarction (NSTEMI) I25.2 History of supraventricular tachycardia Z86.79 Essential hypertension I10 Supplemental Info Supplemental Information Diagnostics Electrocardiogram 0810/15/1836 <Electronically signed by Alex lA MD> Date Alex Al MD Cosigner Signature: Date (if applicable) CC: Cira Walker Start: 10-15-2018 End: 10-15-2018 12 Lead [place] [facility] Comments: See Note; NOTES: [facility] [address] [place] [address] 12 Lead E[place] [facility] 10/15/18827 MR#: [id number] Acct: [id number] Name: BHARATI HILLIARD Rep #: [id number] : 1940 78 From: Alex Al MD Attending Dr: Alex Al MD Status: REG AMB Ordering Dr: Alex Al MD Date: 10/15/18 Location: [facility] Sex: F C Admitted: BMS/12 Lead EKG performed [place] [facility] ECG Report Interpretation Si nus Rhythm RSR(V1) -nondiagnostic. Nonspecific ST abnormalityABNORMAL Electronically signed on 10/15/2018 at 08:56 by Alex Al Software Version 8610 10/15/18 0900 Date Alex Al MD CC: Cira Ku DO Date Dictated: 10/15/18827 Date Transcribed: 10/15/18827 Salvage Repairer: PM Signed Cira Ku Start: 06-22-2018 End: 06-22-2018 Operative Report - Endoscopy Comments: See Note; NOTES: [facility] Medical Records Department [address] [place] [address] Operative Report - Endoscopy MR#: [id number] Acct: [id number] Name: BHARATI HILLIARD Rep #: [id number] : 1940 78 From: Sameer Dover MD PCP: Cira Ku DO Status: REG [facility] 06/22/2018 Cira Ku [address] [place] [address] Re : Colonoscopy procedure for Bharati Hilliard Dear Dr. Ku This procedure was performed on Friday, June 22, 2018. My impressions and recommendations are as follows: Impressions : - Non-thrombosed external hemorrhoids, non-thrombosed internal hemorrhoids and internal hemorrhoids that prolapse with straining, but require manual replacement into the anal canal (Grade III) found on digital rectal exam. - Diverticulosis in the sigmoid colon and in the descending colon. - The examination was otherwise normal. - No specimens collected. Recommendations : - Discharge patient to home. - Resume previous diet. - Continue present medications. - - Repeat colonoscopy will be based upon symptoms. My findings are described in the full procedure note, which is enclosed. If I can be of further assistance, please feel free to contact me at Doctor phone number(s): Work: . Sincerely, Sameer Dover MD 06/22/2018 9:50:57 AM This report has been signed electronically. 06/22/1851 Date Sameer Dover MD Cosigner Signature: Date (if indicated) CC: Cira Ku DO; Sameer Dover MD Date Dictated: 06/22/18925 Date Transcribed: Salvage Repairer: RDC Signed Cira Ku Start: 06-04-2018 End: 06-04-2018 Surgery Visit Report Comments: See Note; NOTES: [facility] [address] [place] [address] OFFICE VISIT Date of Service: 06/04/18 MR#: [id number] Acct: [id number] Name: BHARATI HILLIARD Rep #: [id number] : 1940 Provider: Sameer Dover MD Age/Sex: 78/F Location: [facility] Status: Signed Intake Vital Signs06/04/18 Height 5 ft 2 in 06/04/18 Weight: 103 lb 6 oz 06/04/18 Body Mass Index (BMI) 18.8 06/04/18 Blood Pressure 141/68 H Intake Visit Reasons: Discuss C-Scope Chief Complaint: discuss colonoscopy Painter And Decorator Required: No Is patient in pain?: No Allergies Iodinated Contrast- Oral and IV Dye [Iodinated Contrast Media - Oral and] Allergy (Verified 06/04/18 13:31) Rash iodine Allergy (Verified 06/04/18 13:31) Rash Penicillins Allergy (Verified 06/04/18 13:31) Rash Sulfa (Sulfonamide Antibiotics) Allergy (Verified 06/04/18 13:31) Rash COBEX Allergy (Uncoded 03/29/16 21:29) Anaphylaxis Medications Lorazepam [Ativan] 0.25 mg PO DAILY 03/29/16 [History Confirmed 06/04/18] Metoprolol Tartrate 6.25 mg PO DAILY PRN 03/29/16 [History Confirmed 06/04/18] Is last menstrual period known: No Post menopausal: Yes Patient : No PFSH Medical History Personal history of colonic polyps (Acute) Anemia (Acute) Anxiety and depression (Acute) Cataract (Acute) Elevated LFTs (Acute) Jamie's disease (Acute) History of colon polyps (Acute) IBS (irritable bowel syndrome) (Acute) Old AK (myocardial infarction) (Acute) Psoriasis (Acute) HTN (hypertension) (Chronic) Surgical History History of appendectomy (Acute) History of bilateral oophorectomy (Acute) History of section (Acute) History of colonoscopy (Acute) History of hysterectomy (Acute) Family History Father Cancer prostate CAD (coronary artery disease) Brother CAD (coronary artery disease) Hypertension Heart disease Mother Colon cancer CAD (coronary artery disease) Heart disease Social History Smoking Status: Never smoker HPI HPI HPI: BHARATI HILLIARD, is a 78 F who presents to the office today for surgical consultation regarding colonoscopy as she has a personal history of colon polyps. April 2001 she had a colonoscopy with a couple benign polyps removed. Most recently 2012 Dr. Grant Chamorro performed a colonoscopy no polyps at that time. It is of note that in 2004 the patient had a myocardial infarction this was felt in part to be secondary to coronary spasm. She has paroxysmal hypertension which she treats with as needed metoprolol. She cannot take the medication routinely because of relative hypotension. The patient is very sensitive medications. Her previous colonoscopy in 2001 done remotely was done with Demerol and the patient had a return to the emergency room and be admitted for resuscitation. 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 She is very alert awake. She exercises at [facility] 5 times per week. The patient is referred by her primary care physician Dr. Cira Ku and a written copy of my surgical consult will return to her HPI HPI HPI: BHARATI HILLIARD, is a 78 F who presents to the office today for ROS General General: No weight change, appetite, fatigue, colon cancer, breast cancer or weakness HEENT HEENT: No difficulty swallowing, eye injury, eye surgery, swollen glands or hoarseness Endo Endocrine: No thyroid disease, diabetes mellitus, thyroid cancer, Hair loss, heat intolerance or cold intolerance Additional Details: Hashimotos Cardio Cardiovascular: Yes high blood pressure and heart attack; no murmur, pacemaker, heart disease, atrial fibrillation, heart stent, palpitations, shortness of breat with exertion or chest pain Psych Psychiatric: Yes anxiety; no depression or hearing voices Resp Respiratory: No shortness of breath, No sleep apnea, No cough, No COPD, No asthma, No emphysema, No wheezing Gastro Gastrointestinal: No abdominal pain, No nausea or vomiting, No diarrhea, No constipation, No blood in stool, No acid reflux, Yes hemorrhoids, No ulcers, No gallbladder problem, No black,tarry stools Neuro Neurologic: No weakness Exam Const General: cooperative Nutritional Appearance: thin Orientation: alert, awake, oriented x3 HENMT Head: normal to inspection Resp Effort AND Inspection: normal respiratory effort Auscultation: clear to auscultation bilaterally Cardio Rate: regular rate Rhythm: regular rhythm Heart Sounds: no murmurs GI Palpation: soft, no hepatosplenomegaly Auscultation: normal bowel sounds Skin General: no rashes or lesions noted Neuro Cranial Nerves: CN's II-XI intact bilaterally Extrem General: no calf tenderness bilaterally Psych Affect: normal affect Assessment AND Plan Problems 1. Personal history of colonic polyps Z86.010 Plan 78-year-old female who has a personal history of colon polyps. She is very slender. She exercises 5 times per week. She remotely had problems with failure to awaken with Demerol. She is very sensitive to multiple medications. I am recommending a colonoscopy with possible biopsy or polypectomy as indicated. The patient is diminutive this procedure actually might be more challenging. Because of the patient's medicine sensitivity I recommend doing this under monitored anesthesia care. The patient does not take her metoprolol for hypertension routinely but only when she detects that it is elevated. She states that if she were to take it routinely then she would be relatively hypotensive I anticipate utilizing monitored anesthesia care. She has had an opportunity to ask and have questions answered. We will schedule and proceed at her discretion. CC: Dr. Cira Dover M.D., F.A.C.S. Orders Orders: Coding Level of Care Code Detailed, Low Diagnoses Personal history of colonic polyps Z86.010 06/04/18 1434 <Electronically signed by Sameer Dover MD> Date Sameer Dover MD Cosigner Signature: Date (if applicable) CC: Cira Walker Start: 01-05-2018 End: 01-22-2018 Abdomen/Pelvis without Cont Comments: See Note; NOTES: [facility] Imaging Services [address] [place], [place] [address] [place] [address] Abdomen/Pelvis without Cont MR#: [id number] Acct: [id number] Name: BHARATI HILLIARD Rep #: [id number] : 1940 F 77 From: Ron Reis DO PCP: Cira Ku DO Status: REG CLI Study: Abdomen/Pelvis without Cont Date of Exam: 01/05/18 Exam# [id number] Ordering Dr: Raul Larson ADDENDUM by Ron Reis on 01/22/18 at 1602 ADDENDUM ADDENDUM: A prior study dated April 23, 2016 is become available for comparison. On the current exam the liver measures 5.7 cm in AP dimension, 17.32 cm in transverse dimension at 16.4 cm in maximal craniocaudal direction on the previous study the liver measured 6.7 x 17.8 x 15.3 cm. There is no overall change in appearance of the liver. Review of the remainder of the CT scan demonstrates no major interval change. Electronically Signed: Ron Reis DO at 16:02 EST Tel [phone], Service support , 01/22/18 1602 Date cc: Raul Ku DO * Signed ADDENDUM by Ron Reis on 01/22/[address]/Abdomen/Pelvis without Cont 01/22/18 1608 Date cc: Raul Ku DO * Signed STUDY: CT ABDOMEN AND PELVIS WITHOUT CONTRAST REASON FOR EXAM: Female, 77 years old. Endometrial cancer. Uterine cancer. History of total hysterectomy, 2017. RADIATION DOSAGE (If Supplied By Facility): CTDIvol = ( 6.04 ) mGy, DLP = ( 255.17 ) mGycm TECHNIQUE: Transaxial images were obtained from the dome of the diaphragm to the symphysis pubis without oral contrast, and without intravenous contrast. Sagittal and coronal images were reconstructed. Individualized dose optimization techniques were used for this CT. COMPARISON: None. FINDINGS: The visualized lung bases are unremarkable. The visualized portions of the heart are within normal limits. There is hepatomegaly with diffuse hepatic enlargement. Normal gallbladder and extrahepatic biliary system. Normal spleen. Normal pancreas. Normal bilateral adrenal glands. Normal right kidney. Normal left kidney. Normal visualized stomach. Normal small intestine. Normal colon. There is non-visualization of the appendix. There is diffuse atherosclerotic calcification of the abdominal aorta, without a demonstrated aneurysm. Normal inferior vena cava. Normal retroperitoneum. The urinary bladder is incompletely distended but grossly unremarkable. Normal vaginal cuff. There are phleboliths in the pelvis without pelvic lymphadenopathy. No free air or free fluid is seen within the peritoneal cavity.. Normal abdominal wall. There are diffuse degenerative changes of the visualized lumbar spine and hips. CT/Abdomen/Pelvis without Cont IMPRESSION: 1. Hepatomegaly without focal mass. 2. Status post hysterectomy. 3. Degenerative changes of the lumbar spine and hips. 4. Atherosclerotic changes of the aorta and iliac arteries. 5. No evidence of acute intra-abdominal or pelvic abnormality. Electronically Signed: Ron Reis DO at 17:05 EST Tel [phone], Service support , CC: Raul Larson; Cira Ku DO Salvage Repairer: Signed Cira Ku Work Phone: Start: 07-21-2017 End: 07-21-2017 Inital Evaluation (1) - PT Comments: See Note; NOTES: [facility] [address] [place] [address] Fax REHABILITATION SERVICES INITIAL EVALUATION MR#: [id number] Acct: [id number] Name: BHARATI HILLIARD Rep #: [id number] : 1940 77 From: Jhonatan Stafford DPT, OCS, CSCS Referring Dr.: Cira Ku DO Status: DIS RCR Insurance: [employer] PPO SELF PAY INSURANCE Patient's Visit Information BHARATI HILLIARD is a 77 year old F referred to Physical Therapy by Cira Ku with a diagnosis of BPV. Date of Evaluation: 07/15/17 Physical Therapist: Jhonatan Stafford, [place], [place] - Visit Plan Plan: No skilled PT required at this point. Pt to continue doctoring with family doctors orders and diagnostics - Subjective Subjective: Since April has had some dizzyness with rolling in bed or leaning over to wash hair and it lasts seconds. Avoids woodchop in ex class and excessive head movement activities. Does not feel unsteady otherwise but does have sinus pressure feeling intermittently. Has had some migraines and bad allergies. Will have oxygen test for sleep apnea. Also had bllod pressure spikes after four hours of sleep and some migraines. All seemed to start in april. Has been senistive to spinning object for long time. Stopped down dog in yoga since April. - Objective Walks easily and smoothly without balance deficits.Transfers I. Steps reciprocal without rail. - B hallpike, - roll test. Oculomotor is normal today: no nystagmus with gaze or head shake. - skew eye deviation. - head thrust. pursuit and saccades are normal. VOR is normal and asymptomatic. No symptoms created today with position change or eye movements. - Balance Scores Functional Gait Assessment Score: 30 % Disability: 0 CATSIB Score (Max score 120 seconds): 120 - Anticipated Interventions Thank you for the opportunity to evaluate your patient. For Medicare and Medicare HMO plans, please review the plan of care and approve it. It will need to be FAXED BACK to us at [phone] for Medicare purposes. Please let me know if there are questions or concerns regarding this plan of care. Physician Signature: ___Date: <Electronically signed by Jhonatan Stafford DPT, OCS, CSCS> 07/21/17 0903 CC: Cira Ku DO EBG Signed For Medicare only, by signing this I certify the plan of care. Physicians Signature Date Cira Ku Start: 04-01-2016 End: 04-01-2016 12 lead ECG Comments: See Note; NOTES: [facility] Cardiovascular Services [address] [place] [id number] 12 Lead EKG 03/29/162148 MR#: [id number] Acct: [id number] Name: BHARATI HILLIARD Rep #: [id number] : 1940 75 From: Bo Huitron MD Attending Dr: Status: DEP ER Ordering Dr: Jonathan Blackwood MD Date: 03/29/16 Location: ED Sex: F C Admitted: Test Reason : LIGHT HEADEDNESS Blood Pressure : / mmHG Vent. Rate : 074 BPM Atrial Rate : 074 BPM P-R Int : 114 ms QRS Dur : 078 ms QT Int : 414 ms P-R-T Axes : 033 056 061 degrees QTc Int : 459 ms Normal sinus rhythm Nonspecific ST abnormality Abnormal ECG Confirmed by BO HUITRON MD ([id number]), supervising film or videotape editor MARTIN SAEED ([id number]) on 04/01/2016 12:52:28 PM Referred By: LANE Confirmed By:BO HUITRON MD 04/01/16 1252 Date Bo Huitron MD CC: Cira Ku DO Date Dictated: 03/29/162148 Date Transcribed: 03/29/162148 Salvage Repairer: Signed Cira Ku Start: 03-29-2016 End: 03-29-2016 Discharge Instruction Comments: See Note; NOTES: [facility] Medical Records Department [address] [place] [address] Discharge Instruction 03/29/168 MR#: [id number] Acct: [id number] Name: BHARATI HILLIARD Rep #: [id number] : 1940 75 From: Jonathan Blackwood MD PCP: Cira Ku DO Status: REG ER ED Disposition - Plan for ED Patient: Disposition: Home or Assisted Living Chief Complaint: Syncope Instructions: ED Near Syncope Vasovagal Referrals: Cira Ku, [Primary Care Provider] - As Needed What to do if you have Problems For any increased pain, shortness of breath, bleeding, nausea or vomiting, chest pain, or any unexpected problems, contact your Primary Care Provider. Call [facility] ([phone]) or report to the closest Emergency Room. Call 911 if necessary. 03/29/162218 <Electronically signed by Jonathan Blackwood MD> Date Jonathan Blackwood MD Cosigner Signature (If Indicated): Date CC: Cira Walker Start: 03-29-2016 End: 03-29-2016 Emergency Department Summary Comments: See Note; NOTES: [facility] Medical Records Department [address] [place] [address] Emergency Department Summary 03/29/162213 MR#: [id number] Acct: [id number] Name: BHARATI HILLIARD Rep #: [id number] : 1940 75 From: Jonathan Blackwood MD PCP: Cira Ku DO Status: REG ER - ER Visit Summary Date of Service: 03/29/16 Chief Complaint: Near syncope History of Present Illness: The patient is a 75 F who reports she was walking felt like her blood was rushing backwards into her chest and felt as if she was going to pass out. She wobbled. Symptoms lasted 15 seconds. She did not have loss of conscious. She denies any chest pain. She denies shortness of breath. She denies any leg pain, swelling discoloration. She did have an endometrial biopsy for bleeding. Preliminary is unremarkable. She presently has no symptoms. She has history of vasovagal syncope. Physical Examination: Pleasant elderly woman. Vital signs are unremarkable. Orthostatic vital signs are negative. HEENT exam is unremarkable trachea midline. No carotid bruits. Lungs clear auscultation. Heart is regular. There is no murmur, gallop or rub abdomen soft nontender no palpable stone mass. Neuro exam is nonfocal. Test Results: EKG normal sinus rhythm rate of 75 and unchanged from June 08, 2010. Orthostatics negative. Monitor revealed sinus rhythm without ectopy. Emergency Department Course and Treatment: She was observed she was told she has a vasovagal event and will be discharged home Disposition: Charge to home in stable condition Impression: Syncope secondary to vasovagal ED Disposition - Plan for ED Patient: Chief Complaint: Syncope Referrals: Cira Ku DO [Primary Care Provider] - What to do if you have Problems For any increased pain, shortness of breath, bleeding, nausea or vomiting, chest pain, or any unexpected problems, contact your Primary Care Provider. Call [facility] ([phone]) or report to the closest Emergency Room. Call 911 if necessary. 03/29/16 3748 <Electronically signed by Jonathan Blackwood MD> Date Jonathan Blackwood MD Cosigner Signature (If Indicated): Date CC: Chan Jack MD; Cira Ku DO; Andrae Ku Start: 11-26-2010 Adult depression screening assessment Saida Gary RN Abdominal hysterectomy Sheldon Rojo Comment on above: Partial 07/31 Abdominal hysterectomy Sheldon Rojo Comment on above: Partial 07/31 Abdominal hysterectomy Sylwia ca Ben Comment on above: Partial 07/31 Abdominal hysterectomy Sheldon Messenger Comment on above: Partial 07/31 Abdominal hysterectomy Sheldon Rojo Comment on above: Partial 07/31 Abdominal hysterectomy Caio a Slarb Comment on above: Partial 07/31 Abdominal hysterectomy Jasmi n Gravius Comment on above: Partial 07/31 Abdominal hysterectomy Angela n Carpio Comment on above: Partial 07/31 Abdominal hysterectomy Ashle y Cross Comment on above: Partial 07/31 Abdominal hysterectomy Ashle y Cross Comment on above: Partial 07/31 Abdominal hysterectomy Ashle y Cross LIFE INSURANCE UNDERWRITER Comment on above: Partial 07/31 Abdominal hysterectomy Caio a Slarb LIFE INSURANCE UNDERWRITER Comment on above: Partial 07/31 Abdominal hysterectomy Payto n Pedro Pablo MA Comment on above: Partial 07/31 Abdominal hysterectomy Jasmi n Gravius PUBLIC RELATIONS ASSISTANT Comment on above: Partial 07/31 Abdominal hysterectomy Angela n Clemente LIFE INSURANCE UNDERWRITER Abdominal hysterectomy Kayel a Mills PUBLIC RELATIONS ASSISTANT Abdominal hysterectomy Kayel a Marilu PUBLIC RELATIONS ASSISTANT Abdominal hysterectomy Kayel a Mills PUBLIC RELATIONS ASSISTANT Appendectomy Sheldon Rojo Comment on above: 07/31 Appendectomy Sheldon Rojo Comment on above: 07/31 Appendectomy Lorna Ben Comment on above: 07/31 Appendectomy Sheldon Rojo Comment on above: 07/31 Appendectomy Sheldon Rojo Comment on above: 07/31 Appendectomy Chanelle Dmitri Comment on above: 07/31 Appendectomy Earnestine Gravius Comment on above: 07/31 Appendectomy Dhruv Carpio Comment on above: 07/31 section Sheldon hair Comment on above: 1976 section Sheldon hair Comment on above: 1976 section Lorna Alena mittal Comment on above: 1976 section Sheldon hair Comment on above: 1976 section Sheldon hair Comment on above: 1976 section Chanelle Slar b Comment on above: 1976 section Earnestine Grav ius Comment on above: 1976 section Dhruv bates Comment on above: 1976 Colonoscopy Sheldon Rojo Comment on above: Colonoscopy Sheldon Rojo Comment on above: Colonoscopy Lorna Ben Comment on above: Colonoscopy Sheldon Rojo Comment on above: Colonoscopy Sheldon Rojo Comment on above: Colonoscopy Chanelle Dmitri Comment on above: Colonoscopy Earnestine Gravius Comment on above: Kamille Carpio Comment on above: /2004 Extraction of cataract Kayel a Mills PUBLIC RELATIONS ASSISTANT Extraction of cataract Kayel a Mills PUBLIC RELATIONS ASSISTANT Extraction of cataract Kayel a Marilu PUBLIC RELATIONS ASSISTANT H/O: bilateral oophorectomy Dhruv Cornejo Comment on above: 07-31 H/O: bilateral oophorectomy Emily Marion Comment on above: 07-31 H/O: bilateral oophorectomy Emily Marion Comment on above: 07-31 H/O: bilateral oophorectomy Emily Marion LIFE INSURANCE UNDERWRITER Comment on above: 07-31 H/O: bilateral oophorectomy Chanelle Dmitri MANNN Comment on above: 07-31 H/O: bilateral oophorectomy Fabi Chamorro MA Comment on above: 07-31 H/O: bilateral oophorectomy Earnestine Gravius PUBLIC RELATIONS ASSISTANT Comment on above: 07-31 H/O: bilateral oophorectomy Dhruv Cornejo LPN H/O: bilateral oophorectomy Kayela Mills PUBLIC RELATIONS ASSISTANT H/O: bilateral oophorectomy Kayela Mills PUBLIC RELATIONS ASSISTANT H/O: bilateral oophorectomy Kayela Mills PUBLIC RELATIONS ASSISTANT H/O: section Dhruv Cornejo Comment on above: 1976 H/O: section Emily Marion Comment on above: 1976 H/O: section Emily Marion Comment on above: 1976 H/O: section Emily Marion LIFE INSURANCE UNDERWRITER Comment on above: 1976 H/O: section Chanelle Dmitri MANNN Comment on above: 1976 H/O: section Fabi Chamorro MA Comment on above: 1976 H/O: section Earnestine Gravius PUBLIC RELATIONS ASSISTANT Comment on above: 1976 H/O: section Dhruv Cornejo LIFE INSURANCE UNDERWRITER H/O: section Kayela Mills PUBLIC RELATIONS ASSISTANT H/O: section Kayela Marliu PUBLIC RELATIONS ASSISTANT H/O: section Kayela Mills PUBLIC RELATIONS ASSISTANT History of appendectomy Dhruv Cronejo Comment on above: 07/31 History of appendectomy Emily Marion Comment on above: 07/31 History of appendectomy Emily Marion Comment on above: 07/31 History of appendectomy Emily Marion LPN Comment on above: 07/31 History of appendectomy Chanelle Rizvi LPN Comment on above: 07/31 History of appendectomy Fabi Chamorro MA Comment on above: 07/31 History of appendectomy Earnestine Gravius PUBLIC RELATIONS ASSISTANT Comment on above: 07/31 History of appendectomy Dhruv Cornejo LPN History of appendectomy Kayela Marilu PUBLIC RELATIONS ASSISTANT History of appendectomy Virginiaa Mills PUBLIC RELATIONS ASSISTANT History of appendectomy Amol Mills PUBLIC RELATIONS ASSISTANT Oophorectomy; Bilateral Sheldon Messenger Comment on above: 6-08 Oophorectomy; Bilateral Sheldon Messenger Comment on above: 6-08 Oophorectomy; Bilateral Lorna Ben Comment on above: 6-08 Oophorectomy; Bilateral Sheldon Messenger Comment on above: 6-08 Oophorectomy; Bilateral Sheldon Messenger Comment on above: 6-08 Oophorectomy; Bilateral Chanelle Slarb Comment on above: 6-08 Oophorectomy; Bilateral Earnestine Gravius Comment on above: 6- Oophorectomy; Bilateral Dhruv Carpio Comment on above: 07-31 Past history of procedure Dhruv Cornejo Comment on above: Past history of procedure Emily Marion Comment on above: Past history of procedure Emily Marion Comment on above: Past history of procedure Emily Marion LIFE INSURANCE UNDERWRITER Comment on above: Past history of procedure Chanelle Rizvi LIFE INSURANCE UNDERWRITER Comment on above: Past history of procedure Fabi Chamorro MA Comment on above: Past history of procedure Earnestine Gravtianna PUBLIC RELATIONS ASSISTANT Comment on above: Past history of procedure Dhruv Cornejo LPN Past history of procedure Amol Noford PUBLIC RELATIONS ASSISTANT Past history of procedure Amol Michel PUBLIC RELATIONS ASSISTANT Past history of procedure Amol Michel PUBLIC RELATIONS ASSISTANT Plan of Treatment Date Care Activity Detail Author Start: 06-12-2025 End: 06-12-2025 Patient encounter procedure 06/12/2025 1:00 PM EDT Office Visit Cardiology [address] [place] [address] Lissette Curiel MD [address] [facility] [address] [place] [address] 4-6 month follow up Cardiology Comment on above: 4-6 month follow up Start: 01-23-2025 End: 10-31-2025 Echocardiography ECHO Cardiology Routine Takotsubo cardiomyopathy SVT (supraventricular tachycardia) (HCC) Expected: 01/23/2025, Expires: 10/31/2025 [facility] Work Phone: Comment on above: Expected: 01/23/2025, Expires: Start: 12-26-2024 End: 12-26-2024 Patient encounter procedure Cardiology Comment on above: 1 year follow up Start: 11-28-2024 End: 11-28-2024 Patient encounter procedure 11/28/2024 8:40 AM EDT Office Visit Cardiology [address] [place] [address] Lissette Curiel MD [address] [facility] [address] [place] [address] 1 year follow up DO NOT RESCHEDULE THIS PATIENT PLEASE Cardiology Comment on above: 1 year follow up DO NOT RESCHEDULE THIS PATIENT PLEASE Start: 10-24-2024 Influenza vaccination [facility] Start: 10-12-2024 Patient discharge [facility] Start: 10-12-2024 End: 10-12-2024 [facility] Start: 10-11-2024 Following clinical pathway protocol [facility] Start: 10-11-2024 Ambulation without limitation [facility] Start: 10-11-2024 Assessment of risk of venous thromboembolism [facility] Start: 10-11-2024 Incentive spirometry [facility] Start: 10-11-2024 Insertion of catheter into peripheral vein [facility] Start: 10-11-2024 Measuring intake and output [facility] Start: 10-11-2024 Oxygen therapy [facility] Start: 10-11-2024 Providing care according to standard [facility] Start: 10-11-2024 Referral to occupational therapist [facility] Start: 10-11-2024 Referral to service [facility] Start: 10-11-2024 [facility] Start: 10-11-2024 Verification routine [facility] Start: 10-11-2024 Admission procedure [facility] Start: 10-11-2024 Hospital admission, emergency, from emergency room, medical nature [facility] Start: 10-11-2024 Thyroid stimulating hormone measurement [facility] Start: 10-11-2024 End: 10-12-2024 [facility] Start: 10-11-2024 Catheterization of left heart [facility] Start: 08-08-2024 End: 08-08-2024 Patient encounter procedure 08/08/2024 1:40 PM EDT Office Visit OB/Gynecology [address] [place] [address] Tamiko Graf MD [address] [place] [address] annual OB/Gynecology Comment on above: annual Start: 02-24-2024 Advance Directive Discussion Advance Directive Discussion [facility] Start: 02-24-2024 Medicare Advantage Annual Wellness Visit Medicare [facility] Annual Wellness Visit [facility] Start: 01-11-2024 End: 01-11-2024 Patient encounter procedure 01/11/2024 11:00 AM EST Office Visit Cardiology [address] [place] [id number] Lissette Curiel MD [address] [address] 1 year follow up Cardiology Comment on above: 1 year follow up Start: 10-25-2023 Covid-19 Vaccine ( season) Covid-19 Vaccine ( season) [facility] Start: 10-25-2023 Influenza vaccination [facility] Start: 02-23-2023 Advance Directive Discussion Advance Directive Discussion [facility] Start: 02-23-2023 Behavioral Health Screening Behavioral Health Screening [facility] Start: 10-24-2022 Covid-19 Vaccine ( season) Covid-19 Vaccine () [facility] Start: 10-24-2022 Influenza vaccination [facility] Start: 06-26-2022 Procedure Education [facility] Work Phone: Start: 06-26-2022 Provider Instructions for Treatment [facility] Work Phone: Start: 06-16-2022 Procedure Education [facility]; [facility] Work Phone: Start: 06-16-2022 Provider Instructions for Treatment [facility]; [facility] Work Phone: Start: 06-16-2022 Assay of thyroxine total [facility]; [facility] Work Phone: Start: 06-16-2022 Assay of triiodothyronine t3 total tt3 [facility]; [facility] Work Phone: Start: 06-16-2022 Cyanocobalamin vitamin b-12 [facility]; [facility] Work Phone: Start: 06-16-2022 25 hydroxy includes fractions if performed [facility]; [facility] Work Phone: Start: 06-16-2022 Comprehensive metabolic panel [facility]; [facility] Work Phone: Start: 06-16-2022 Lipid panel [facility]; [facility] Work Phone: Start: 06-16-2022 Blood count complete auto&auto difrntl wbc [facility]; [facility] Work Phone: Start: 06-16-2022 Assay of thyroid stimulating hormone tsh [facility]; [facility] Work Phone: Start: 03-17-2022 Procedure Education [facility]; [facility] Work Phone: Start: 03-17-2022 Provider Instructions for Treatment [facility]; [facility] Work Phone: Start: 02-23-2022 ADVANCE DIRECTIVE DISCUSSION ADVANCE DIRECTIVE DISCUSSION [facility] Start: 02-23-2022 DEPRESSION ASSESSMENT DEPRESSION ASSESSMENT [facility] Start: 12-12-2021 Procedure Education [facility]; [facility] Work Phone: Start: 12-12-2021 Provider Instructions for Treatment [facility]; [facility] Work Phone: Start: 10-24-2021 Influenza vaccination INFLUENZA (Season Ended) [facility] Start: 04-24-2021 Culture bct isol&prsmptv id isolate ea urine URINE HUONG CULTURE-IDENTIFICATN (08906) [facility]; [facility] Work Phone: Start: 04-15-2021 Procedure Education [facility]; [facility] Work Phone: Start: 04-15-2021 Provider Instructions for Treatment [facility]; [facility] Work Phone: Start: 03-14-2021 Procedure Education [facility]; [facility] Work Phone: Start: 02-23-2021 ADVANCE DIRECTIVE DISCUSSION ADVANCE DIRECTIVE DISCUSSION [facility] Start: 02-11-2021 Procedure Education [facility]; [facility] Work Phone: Start: 11-02-2020 Procedure Education [facility]; [facility] Work Phone: Start: 11-02-2020 Provider Instructions for Treatment [facility]; [facility] Work Phone: Start: 10-25-2020 Procedure Education [facility]; [facility] Work Phone: Start: 10-24-2020 Influenza vaccination INFLUENZA (#1) [facility] Start: 10-22-2020 Procedure Education [facility]; [facility] Work Phone: Start: 08-08-2020 Procedure Education [facility]; [facility] Work Phone: Start: 08-08-2020 Provider Instructions for Treatment [facility]; [facility] Work Phone: Start: 05-09-2020 Procedure Education [facility]; [facility] Work Phone: Start: 05-04-2020 Iaadiadoo influenza 2019 Novel Coronavirus (COVID-19), TONO (37371) [facility]; [facility] Work Phone: Start: 04-06-2020 Procedure Education [facility]; [facility] Work Phone: Start: 02-29-2020 Assay of zinc ZINC, BLOOD (22236) [facility]; [facility] Work Phone: Start: 02-29-2020 Assay of copper [facility]; [facility] Work Phone: Start: 02-29-2020 Blood count complete auto&auto difrntl wbc CBC W/AUTO DIFF WBC (30565) [facility]; [facility] Work Phone: Start: 02-29-2020 Comprehensive metabolic panel METABOLIC PANEL, COMPREHENSIVE (42769) [facility]; [facility] Work Phone: Start: 10-13-2019 Procedure Education [facility] Work Phone: Start: 10-13-2019 Provider Instructions for Treatment [facility] Work Phone: Start: 10-03-2019 Microsomal antibodies each Anti TPO Antibody (36173) [facility] Work Phone: Start: 10-03-2019 Free T4 [Mass/Vol] T4, FREE (THYROXINE) (83284) [facility] Work Phone: Start: 10-03-2019 Free T3 [Mass/Vol] T3, FREE (TRIDOTHYRONINE) (59203) [facility] Work Phone: Start: 10-03-2019 25 hydroxy includes fractions if performed CALCIFEDIOL (95567) [facility] Work Phone: Start: 10-03-2019 Cobalamin (Vitamin B12) [Mass/Vol] VITAMIN B-12 (CYANOCOBALAMIN) (37108) [facility] Work Phone: Start: 10-03-2019 TSH Qn TSH (82839) [facility] Work Phone: Start: 10-03-2019 Urnls dip stick/tablet reagent auto microscopy URINALYSIS, W/ MICRO (74528) [facility] Work Phone: Start: 10-03-2019 Urine albumin quantitative MICROALBUMIN: CREATININE RATIO (97741) AND (48157) [facility] Work Phone: Start: 10-03-2019 Comprehensive metabolic panel METABOLIC PANEL, COMPREHENSIVE (66510) [facility] Work Phone: Start: 10-03-2019 Lipid panel LIPID PANEL (86720) [facility] Work Phone: Start: 10-03-2019 Blood count complete auto&auto difrntl wbc CBC W/AUTO DIFF WBC (46319) [facility] Work Phone: Start: 10-03-2019 Procedure Education [facility] Work Phone: Start: 10-03-2019 Provider Instructions for Treatment [facility] Work Phone: Start: 08-17-2019 Procedure Education [facility] Work Phone: Start: 08-17-2019 Provider Instructions for Treatment [facility] Work Phone: Start: 05-04-2019 DIABETES SCREEN DIABETES SCREEN [facility] Start: 05-04-2019 Diabetes Screening Diabetes Screening [facility] Start: 11-15-2018 Patient Education [facility] Work Phone: Start: 11-15-2018 Procedure Education [facility] Work Phone: Start: 11-15-2018 Provider Instructions for Treatment [facility] Work Phone: Start: 10-01-2018 Provider Instructions for Treatment [facility] Work Phone: Start: 09-09-2018 Provider Instructions for Treatment [facility] Work Phone: Start: 09-09-2018 Free T4 [Mass/Vol] T4, FREE (THYROXINE) (06276) [facility] Work Phone: Start: 09-09-2018 Free T3 [Mass/Vol] T3, FREE (TRIDOTHYRONINE) (44223) [facility] Work Phone: Start: 09-09-2018 TSH Qn TSH (00597) [facility] Work Phone: Start: 08-26-2018 Hepatic function panel HEPATIC FUNCTION PANEL (29702) [facility] Work Phone: Start: 08-12-2018 Procedure Education [facility] Work Phone: Start: 08-12-2018 Provider Instructions for Treatment [facility] Work Phone: Start: 08-12-2018 Comprehensive metabolic panel [facility] Work Phone: Comment on above: STAT Start: 08-12-2018 Blood count complete automated [facility] Work Phone: Comment on above: STAT Start: 05-28-2018 Provider Instructions for Treatment [facility] Work Phone: Start: 07-14-2017 Provider Instructions for Treatment [facility] Work Phone: Start: 05-08-2017 Provider Instructions for Treatment [facility] Work Phone: Start: 04-30-2017 Cobalamin (Vitamin B12) mass conc VITAMIN B12 AND FOLATES (18692) [facility] Work Phone: Start: 04-30-2017 Cyanocobalamin vitamin b-12 [facility]; [facility] Work Phone: Start: 04-30-2017 Blood count manual cell count each [facility] Work Phone: Start: 04-30-2017 Comprehensive metabolic panel [facility] Work Phone: Start: 04-30-2017 Microsomal antibodies each [facility] Work Phone: Comment on above: check with kg to see if this is what she really wants? Start: 04-30-2017 Assay of triiodothyronine t3 free [facility]; [facility] Work Phone: Start: 04-30-2017 T3 free mass conc T3, FREE (TRIDOTHYRONINE) ([id number]) [facility] Work Phone: Start: 04-30-2017 Assay of free thyroxine [facility]; [facility] Work Phone: Start: 04-30-2017 T4 free mass conc T4, FREE (THYROXINE) ([id number]) [facility] Work Phone: Start: 04-30-2017 Assay of thyroid stimulating hormone tsh [facility]; [facility] Work Phone: Start: 04-30-2017 Thyrotropin Qn TSH ([id number]) [facility] Work Phone: Start: 04-22-2017 Assay of thyroid stimulating hormone tsh [facility]; [facility] Work Phone: Start: 04-22-2017 Thyrotropin Qn TSH ([id number]) [facility] Work Phone: Start: 04-22-2017 Assay of triiodothyronine t3 free [facility]; [facility] Work Phone: Start: 04-22-2017 T3 free mass conc T3, FREE (TRIDOTHYRONINE) ([id number]) [facility] Work Phone: Start: 04-22-2017 Assay of free thyroxine [facility]; [facility] Work Phone: Start: 04-22-2017 T4 free mass conc T4, FREE (THYROXINE) ([id number]) [facility] Work Phone: Start: 04-22-2017 Microsomal antibodies each [facility] Work Phone: Start: 11-14-2016 Provider Instructions for Treatment [facility] Work Phone: Start: 09-08-2016 Provider Instructions for Treatment [facility] Work Phone: Start: 09-01-2016 Creatinine other source [facility] Work Phone: Start: 08-28-2016 Procedure Education [facility] Work Phone: Start: 2016 RSV Vaccine (1 - 1-dose 75+ series) RSV Vaccine (1 - 1-dose 75+ series) [facility] Start: 08-03-2015 Provider Instructions for Treatment [facility] Work Phone: Start: 08-03-2015 Blood occult fecal hgb deter ia qual feces 1-3 [facility] Work Phone: Start: 07-02-2015 Patient Education [facility] Work Phone: Start: 07-02-2015 Procedure Education [facility] Work Phone: Start: 08-18-2012 Organic acid 1 quantitative [facility] Work Phone: Start: 08-17-2012 Cobalamin (Vitamin B12) mass conc VITAMIN B12 AND FOLATES ([id number]) [facility] Work Phone: Start: 08-17-2012 Cyanocobalamin vitamin b-12 [facility]; [facility] Work Phone: Start: 08-17-2012 25 hydroxy includes fractions if performed [facility] Work Phone: Start: 11-27-2011 Adult depression screening assessment DEPRESSION SCREENING [facility] Start: 11-27-2011 Patient Education [facility] Work Phone: Start: 10-18-2010 Assay of hydroxyindolacetic acid 5-hiaa [facility] Work Phone: Start: 08-30-2010 Cortisol total [facility] Work Phone: Start: 04-26-2010 Lactate dehydrogenase ldh [facility] Work Phone: Start: 04-26-2010 Comprehensive metabolic panel [facility] Work Phone: Start: 04-26-2010 Sedimentation rate rbc non-automated [facility] Work Phone: Start: 04-26-2010 Blood count manual cell count each [facility] Work Phone: Start: 05-11-2009 Provider Instructions for Treatment [facility] Work Phone: Start: 09-21-2008 Lipid panel [facility] Work Phone: Start: 09-21-2008 Blood count complete automated [facility] Work Phone: Start: 09-21-2008 Comprehensive metabolic panel [facility] Work Phone: Comment on above: copy to Dr. chun mcgee Start: 08-02-2008 Provider Instructions for Treatment [facility] Work Phone: Start: 08-02-2008 Molecule isolate nucleic [facility] Work Phone: Start: 08-02-2008 Blood occult peroxidase actv qual feces 1 deter [facility] Work Phone: Start: 08-02-2008 Ova&parasites direct smears concentration & id [facility] Work Phone: Start: 08-02-2008 Cul bact stool aerobic isol salmonella&shigell [facility] Work Phone: Start: 08-02-2008 Culture bacterial any source anaerobic iso&id [facility] Work Phone: Start: 08-02-2008 Leukocyte assmt fecal qual/semiquantitative [facility] Work Phone: Start: 04-24-2008 Provider Instructions for Treatment [facility] Work Phone: Start: 2006 BONE DENSITY BONE DENSITY [facility] Start: 2006 Bone Density Screening Bone Density Screening [facility] Start: 2006 Pneumococcal Vaccine: 65+ (1 - PCV) Pneumococcal Vaccine: 65+ (1 - PCV) [facility] Start: 2006 Pneumococcal Vaccine: 65+ (1 of 1 - PCV) Pneumococcal Vaccine: 65+ (1 of 1 - PCV) [facility] Start: 2006 PNEUMOCOCCAL: 65+ (1 - PCV) PNEUMOCOCCAL: 65+ (1 - PCV) [facility] Start: 2006 PNEUMOVAX AGE 65 AND OVER WITH 5YR LOOKBACK (#1) PNEUMOVAX AGE 65 AND OVER WITH 5YR LOOKBACK (#1) [facility] Start: 2006 Screening for osteoporosis Bone Density Screening [facility] Start: 2001 RSV Vaccine (1 - 1-dose 60+ series) RSV Vaccine (1 - 1-dose 60+ series) [facility] Start: 1991 Pneumococcal Vaccine: 50+ (1 of 1 - PCV) Pneumococcal Vaccine: 50+ (1 of 1 - PCV) [facility] Start: 1991 SHINGRIX VACCINE (1 of 2) SHINGRIX VACCINE (1 of 2) [facility] Start: 1960 Urine microalbumin profile [facility] Start: 1959 ANNUAL PCP TEAM CHRONIC DISEASE VISIT ANNUAL PCP TEAM CHRONIC DISEASE VISIT [facility] Start: 1959 Anxiety Screening Anxiety Screening [facility] Start: 1959 BP CONTROLLED (<130/80) BP CONTROLLED (<130/80) [facility] Start: 1959 Depression Screening Depression Screening [facility] Start: 1946 COVID-19 VACCINE (1) COVID-19 VACCINE (1) [facility] Start: 1941 COVID-19 VACCINE (#1) COVID-19 VACCINE (#1) [facility] ECG COMPLETE ECG COMPLETE ECG Routine Screening for ischemic heart disease Ordered: 01/06/2023 [facility] Work Phone: Comment on above: Ordered: 01/06/2023 Natriuretic peptide. B prohormone N-Terminal [Mass/volume] in Serum or Plasma [facility] PAP FLUID VAGINAL VA ULT SCREENING PAP FLUID VAGINAL VAULT SCREENING Lab Routine Screening for cancer Endometrial cancer (HCC) 05/22/2021 10:51 AM EDT [facility] Work Phone: Troponin T.cardiac [Mass/volume] in Serum or Plasma by High sensitivity method [facility] Work Phone: [facility] Work Phone: [facility] Work Phone: [facility] Work Phone: [facility] Work Phone: [facility] Work Phone: [facility] Work Phone[facility] Work Phone: [facility] Work Phone: [facility] Work Phone: [facility] Work Phone: [facility] Work Phone: [facility]; [facility] Work Phone: [facility]; [facility] Work Phone: [facility]; [facility] Work Phone: [facility]; [facility] Work Phone: [facility] Payers Date Payer Category Payer Self-pay [id number] 2024 Self-pay [id number] 2024 Medicare (Managed Care) [employer] PPO [id number] 2024 Medicare [id number] 2018 Medicare HUMANA MEDICARE HU[employer]NA MEDICARE PPO [id number] 2018-Present [phone] [address] [address] [place] [address] PPO [id number] 2018 Medicare [id number] 2009 Private Health Insurance [id number] 1940 Unknown [id number] Unknown Unknown [id number] Unknown [id number] Unknown [id number] Unknown [id number] Unknown [id number] Unknown [id number] Unknown [id number] Unknown [id number] Unknown [id number] Unknown [id number] Social History Date Type Detail Facility Start: 01-12-2023 End: 01-11-2024 Exercise History Never smoker [facility] Work Phone: Comment on above: Silver Sneakers, yog a, walking, Moderate , heterosexu al Retired 1-2 decaf tea QD Tobacco use: Never smoker. [facility] Work Phone: Tobacco use: Tobacco use: [facility] Work Phone: Start: 10-17-2010 End: 08-06-2023 Tobacco smoking status NHIS Never smoked tobacco [facility] Start: 05-22-2021 End: 10-31-2024 Alcohol intake Current non-drinker of alcohol (finding) [facility] Start: 1940 Sex Assigned At Not on file [facility] Start: 05-12-2021 End: 05-22-2021 Exposure to SARS-CoV-2 (event) Not sure [facility] Start: 07-16-2021 End: 01-05-2023 Tobacco smoking status NHIS Unknown if ever smoked [facility] Start: 1940 Sex Assigned At Female [facility] Start: 10-17-2010 End: 08-06-2023 Tobacco use and exposure Smokeless tobacco non-user [facility] Work Phone: Start: 01-12-2023 End: 01-11-2024 Tobacco use panel [facility] Start: 01-25-2012 National Score (1-10 0), lower number is lower risk Not on file [facility] Goals Date Patient Goal Desired Activity /State Functional Status Date Assessment Result Facility 10-12-2024 Functional status Up ad michaela [facility] Work Phone: 05-03-2016 Are you deaf, or do you have serious difficulty hearing No 05/03/2016 11:40 AM Caitlin Adam (Rn)(Hist), RN No [facility] 05-03-2016 Are you blind, or do you have serious difficulty seeing, even when wearing glasses No 05/03/2016 11:40 AM Caitlin Adam (Rn)(Hist), RN No [facility] 05-03-2016 Do you have serious difficulty walking or climbing stairs No 05/03/2016 11:40 AM Caitlin Adam (Rn)(Hist), RN No [facility] 05-03-2016 Do you have difficul ty dressing or bathing No 05/03/2016 11:40 AM Caitlin Adam (Rn)(Hist), RN No [facility] 05-03-2016 Because of a physica l, mental, or emotional condition, do you have difficulty doing errands alone such as visiting a physician's office or shopping No 05/03/2016 11:40 AM Caitlin Adam (Rn)(Hist), RN No [facility] Mental Status Date Assessment Result Facility 10-12-2024 Cognitive function Voice/Name [facility] Work Phone: 05-03-2016 Because of a physica l, mental, or emotional condition, do you have serious difficulty concentrating, remembering, or making decisions No 05/03/2016 11:40 AM Caitlin Adam)(Hist), RN No [facility] Clinical Notes 05-22-2021 to 10-31-2024 Patient InstructionsLissette Curiel MD - 10/31/2024 1:20 PM EDTTelephone Encounter - Elvia Magaña MA - 10/18/2024 12:47 PM EDTTelephone Encounter - Elvia Magaña MA - 10/18/2024 12:47 PM EDT Note Date & Type Note Facility 10-31-2024 Instructions Lissette Curiel MD - 10/31/2024 1:34 PM EDT We discussed your history of Takotsubo cardiomyopathy: - Your most recent episode occurred on October 11. We will repeat an echocardiogram in January to monitor your heart function and ensure recovery. - Generally, people with Takotsubo cardiomyopathy experience full recovery, though some degree of heart damage may occur during episodes, as indicated by elevated enzyme levels. - Stress management is critical to reducing the risk of future episodes. Continue your current practices, such as yoga and regular exercise at [employer], which you are doing five days a week. - There is no specific medication to prevent Takotsubo episodes, and avoiding stress remains the best approach. We discussed your concerns about arrhythmia and the rhythm strip provided by Dr. Alvarenga: - The rhythm strip does not show atrial fibrillation or any concerning arrhythmia. Your heart rhythm is normal. - I recommend caution with advice from Dr. Alvarenga, as he is not a trial court judge. If you have further concerns about your heart rhythm, please let me know. We discussed your blood pressure management: - Continue taking Metoprolol as prescribed. You may take it in the morning with breakfast if that is more convenient for you. - Monitor your blood pressure regularly, especially during times of stress. If you notice significant or persistent elevations, please contact our office. We discussed your use of supplements: - I am not a proponent of supplements, as their contents and effects are not always well-regulated or understood. If you choose to continue taking them, please ensure they are from reputable sources and avoid any that may affect your liver, given your history of elevated liver enzymes and an enlarged liver. - If you have concerns about specific supplements, such as those affecting liver function, please let me know. Follow-Up: - Your next echocardiogram is scheduled for January. Please contact our office if you have any questions or concerns before then. - Continue your current lifestyle practices, including yoga and regular exercise, to support your overall health and stress management. documented in this encounter [facility] 10-31-2024 History of Presen t illness Narrative Images from the original note were not included. [facility] SE[facility]AL CARDIOLOGY Cardiology ([facility]) [address] [id number] OUTPATIENT VISIT DATE 10/31/2024 PRIMARY CARE PHYSICIAN: Cira Ku DO (Adrian) [address] [place] [address] HISTORY OF PRESENT ILLNESS: Ms. Hilliard is a 84 year old woman with a history of Takotsubo cardiomyopathy and labile hypertension presents for routine follow-up. The patient experienced her most recent episode of Takotsubo cardiomyopathy on October 11, following a fall down the stairs. She sustained a head injury and was admitted to the hospital, where she was informed that her cardiac enzymes initially measured 10 and subsequently increased to the thousands. She reports that no one at the hospital mentioned atrial fibrillation (AFib) during her stay. However, during a visit with Dr. Alvarenga last Thursday, she was told she was in AFib based on a rhythm strip. She presents this strip today for review. She expresses concern about her recurrent episodes of Takotsubo cardiomyopathy, noting that she experiences these episodes in response to stress or trauma. She describes a pattern where any significant stressor, such as a fall or receiving bad news, triggers an episode. She reports difficulty managing stress despite engaging in regular exercise and yoga, with over 1,000 visits to [employer], attending five days a week. She maintains a healthy diet. She reports that her resting heart rate is typically between 114-116 bpm. She takes half of a metoprolol tablet daily, which she recently started taking in the morning with breakfast instead of at night. She has a history of IBS, which has been well-controlled recently. She reports a known history of hepatomegaly and consistently elevated liver enzymes. She denies alcohol consumption. She has a known allergy to Demerol, which caused syncope in the past, and reports a rash with a previous antibiotic, Colbax. She is currently taking multiple supplements, including turmeric and magnesium, under the guidance of Dr. Alvarenga and a local chiropractor. She expresses concern about the potential liver effects of some supplements, given her history of elevated liver enzymes. She avoids aspirin due to a family history of bleeding ulcers in her father. PAST MEDICAL HISTORY Diagnosis Date Anxiety state, unspecified Coronary artery disease Diarrhea Diffuse cystic mastopathy fibercystic beast disease Endometrial cancer (HCC) 04/30/2016 Heart attack (HCC) 11/16/2020 Hypertension Hypothyroidism Irritable bowel syndrome Loss of weight Other psoriasis PMH - PAST MEDICAL HISTORY OF vitamin B12 deficiency PMH - PAST MEDICAL HISTORY OF 07/2007 right ovarian cyst removed, benign PMH - PAST MEDICAL HISTORY OF 08/2004 heart problems, [place] Solitary cyst of breast SVT (supraventricular tachycardia) (HCC) 08/08/2010 Unspecified cataract x2 Unspecified congenital anomaly of heart mvp PAST SURGICAL HISTORY Procedure Laterality Date APPENDECTOMY 07/25/2007 DELIVERY ONLY 02/24/1976 , low transverse COLONOSCOPY FLX DX W/COLLJ SPEC WHEN PFRMD Colonoscopy x 2 COLONOSCOPY FLX DX W/COLLJ SPEC WHEN PFRMD 09/14/2012 Colonoscopy PAST SURGICAL HISTORY OF cyst frm breast left, benign PAST SURGICAL HISTORY OF 07/25/2007 oophorectomy bilateral REMV CATARACT EXTRACAP,INSERT LENS Bilateral 04/23 and 05/07 SOCIAL HISTORY Social History Tobacco Use Smoking status: Never Smokeless tobacco: Never Vaping Use Vaping status: Never Used Substance Use Topics Alcohol use: No Drug use: No FAMILY HISTORY Problem Relation Age of Onset Colon Cancer Mother chemo and radiation Coronary Artery Disease Mother Hypertension Mother Prostate Cancer Father Coronary Artery Disease Father age 90 of lung disease Coronary Artery Disease Brother asthma other (crohns disease) Daughter ALLERGIES: ALLERGIES Allergen Reactions Cobex Other: See Comments Face and tongue swelled Demerol [Meperidine* Other: See Comments sensitive to this Erthromycin [Erythr* Intolerance irritable bowel, nausea Iodinated Contrast * Rash Macrobid [Nitrofura* Other: See Comments irregular HR, black spots in eyes, and diaphoresis Penicillins Rash No reaction to amoxacillin. Steroids [Corticost* Shortness of Breath, Other: See Comments Throat closed up with cortisone cream Sulfa (Sulfonamide * Rash MEDICATIONS: Aspirin 81 mg tab Take 81 mg by mouth once daily. MEDICATION, NON-DATABASE reishi once per day nitroglycerin sublingual (NITROQUICK) 0.4 mg SL tablet Dissolve 1 tablet under the tongue as needed. For Chest Pain. If No Relief CALL 911 LORazepam (ATIVAN) 0.5 mg Take 0.5 mg by mouth once daily as needed. metoprolol tartrate, short acting, (LOPRESSOR) 25 mg tablet Take 0.5 tablets by mouth twice daily. For rapid heart rates (Patient taking differently: Take 12.5 mg by mouth once daily. For rapid heart rates) selenium 200 mcg tab Take 1 tablet by mouth once daily. ascorbic acid, vitamin C, (VITAMIN C) 500 mg tablet Take 500 mg by mouth once daily. Cholecalciferol, Vitamin D3, (VITAMIN D) 1,000 unit tab Take 1,000 Units by mouth once daily. CYANOCOBALAMIN, VITAMIN B-12, (VITAMIN B-12 ORAL) Take by mouth. LACTOBACILLUS COMBO NO.6 (PROBIOTIC COMPLEX ORAL) Take by mouth once daily. Pre Probiotic daily REVIEW OF SYSTEMS: Review of Systems Constitutional: Negative for chills, fever, malaise/fatigue and weight loss. HENT: Negative for hearing loss and sore throat. Eyes: Negative for blurred vision and double vision. Respiratory: Negative. Cardiovascular: Negative. Gastrointestinal: Negative. Genitourinary: Negative for dysuria, frequency, hematuria and urgency. Musculoskeletal: Negative. Skin: Negative. Neurological: Negative for dizziness, seizures, loss of consciousness, weakness and headaches. Endo/Heme/Allergies: Negative for environmental allergies. Does not bruise/bleed easily. Psychiatric/Behavioral: Negative for depression. PHYSICAL EXAMINATION: BP 187/75 (BP Site: Left Arm, BP Position: Sitting, BP Cuff Size: Regular Adult) Pulse 82 Wt 46.9 kg (103 lb 6.4 oz) SpO2 100% BMI 18.91 kg/m General: Thin elderly woman sitting appears comfortable somewhat anxious but no apparent distress. She is alert and oriented x3 HEENT: Carotid upstrokes are brisk bilateral without bruits. No JVD appreciated. Pulmonary: Lungs are clear no rales, wheezes, rhonchi Cardiovascular: Normal S1-S2 with regular rate and rhythm. No murmurs, rubs, or gallops Extremities: Warm, well-perfused. No lower extremity edema. Dorsalis pedis and posterior tibial pulses are 2+ and symmetric. CARDIOVASCULAR MEDICINE TESTING: Cardiac catheterization 08/13/2019: Ventrciulogram: Ejection fraction 35% with severe hypo to akinesis of the mid LV with normal contraction of the apex and base of the left ventricle consistent with apical sparing Takasubo cardiomyopathy Left main: Mild luminal irregularities Left anterior descending: Mild luminal irregularities Left circumflex: Mild luminal irregularities Right coronary artery mild luminal irregularities Echocardiogram 11/14/2019 Left ventricle: Normal size and normal systolic function and estimated ejection fraction 65%. Intermediate diastolic function. No regional wall motion abnormalities. Mitral valve: Diffuse thickening of the anterior leaflet. Mild mitral valve prolapse with mild mitral valve insufficiency. Mild tricuspid valve insufficiency Mild diffuse aortic valve thickening trileaflet aortic valve Holter monitor 12/02/2011 IMPRESSIONS AND FINDINGS: This is a 48 hour recording The predominant rhythm is sinus Maximum heart rate of 121 occurs at 16:08 secondary to sinus tachycardia. Minimum heart rate of 45 occurs at 02:00 secondary to sinus bradycardia with normal TX interval 259 PACs are detected representing less than 1% of total beats 2086 ventricular ectopic beats are detected representing 1% of total beats. 7 ventricular couplets are detected At 06:21 3 PACs in a row are noted 2% beats occur at a heart rate of greater than 100 No atrial fibrillation, supraventricular tachycardia, complex ventricular ectopy, or pauses are seen The patient submits a detailed diary of activity but reports no symptoms Conclusion: Rare single PACs with 1 instance in which 3 PACs in a row occur Rare single ventricular ectopic beats with very rare couplets No symptoms are reported IMPRESSION: Ms. Hilliard is a 83 year old woman who has a history of Takotsubo cardiomyopathy diagnosed in 2004 with recurrence in 2019 and 2020. She also has a history of labile hypertension which is likely related to underlying anxiety. She presents the office for routine follow-up PLAN AND RECOMMENDATIONS: 1. Takotsubo cardiomyopathy - ICD9: 429.83, ICD10: I51.81 (primary diagnosis) Recheck echocardiogram in 4 months. Continue beta-kadi therapy - ECHO - PERFLUTREN LIPID MICROSPHERES 1.1 MG/ML INJECTION IN NS 10 ML - SODIUM CHLORIDE 0.9 % (FLUSH) INJECTION SYRINGE 2. SVT (supraventricular tachycardia) (HCC) - ICD9: 427.89, ICD10: I47.10 Patient has a rhythm strip from her primary care's office. This shows sinus tachycardia with conducted PACs. Is not consistent with atrial fibrillation - ECHO - PERFLUTREN LIPID MICROSPHERES 1.1 MG/ML INJECTION IN NS 10 ML - SODIUM CHLORIDE 0.9 % (FLUSH) INJECTION SYRINGE 3. Labile hypertension - ICD9: 401.9, ICD10: R09.89 4. Palpitations - ICD9: 785.1, ICD10: R00.2 5. Coronary vasospasm - ICD9: 413.1, ICD10: I20.1 Lissette Curiel MD documented in this encounter [facility] 10-31-2024 Note HNO ID: [id number] Author: LISSETTE CURIEL MD Service: ? Author Type: Physician Type: Progress Notes Filed: 10/31/2024 13:56 Note Text: [facility]AL CARDIOLOGY Cardiology ([address]) [address] [id number] OUTPATIENT VISIT DATE 10/31/2024 PRIMARY CARE PHYSICIAN: Cira Ku DO (Adrian) [id number] [place] [address] HISTORY OF PRESENT ILLNESS: Ms. Hilliard is a 84 year old woman with a history of Takotsubo cardiomyopathy and labile hypertension presents for routine follow-up. The patient experienced her most recent episode of Takotsubo cardiomyopathy on October 11, following a fall down the stairs. She sustained a head injury and was admitted to the hospital, where she was informed that her cardiac enzymes initially measured 10 and subsequently increased to the thousands. She reports that no one at the hospital mentioned atrial fibrillation (AFib) during her stay. However, during a visit with Dr. Alvarenga last Thursday, she was told she was in AFib based on a rhythm strip. She presents this strip today for review. She expresses concern about her recurrent episodes of Takotsubo cardiomyopathy, noting that she experiences these episodes in response to stress or trauma. She describes a pattern where any significant stressor, such as a fall or receiving bad news, triggers an episode. She reports difficulty managing stress despite engaging in regular exercise and yoga, with over 1,000 visits to [facility], attending five days a week. She maintains a healthy diet. She reports that her resting heart rate is typically between 114-116 bpm. She takes half of a metoprolol tablet daily, which she recently started taking in the morning with breakfast instead of at night. She has a history of IBS, which has been well-controlled recently. She reports a known history of hepatomegaly and consistently elevated liver enzymes. She denies alcohol consumption. She has a known allergy to Demerol, which caused syncope in the past, and reports a rash with a previous antibiotic, Colbax. She is currently taking multiple supplements, including turmeric and magnesium, under the guidance of Dr. Alvarenga and a local chiropractor. She expresses concern about the potential liver effects of some supplements, given her history of elevated liver enzymes. She avoids aspirin due to a family history of bleeding ulcers in her father. PAST MEDICAL HISTORY Diagnosis Date Anxiety state, unspecified Coronary artery disease Diarrhea Diffuse cystic mastopathy fibercystic beast disease Endometrial cancer ([facility]) 04/30/2016 Heart attack ([facility]) 11/16/2020 Hypertension Hypothyroidism Irritable bowel syndrome Loss of weight Other psoriasis PMH - PAST MEDICAL HISTORY OF vitamin B12 deficiency PMH - PAST MEDICAL HISTORY OF 07/2007 right ovarian cyst removed, benign PMH - PAST MEDICAL HISTORY OF 08/2004 heart problems, [place] Solitary cyst of breast SVT (supraventricular tachycardia) ([facility]) 08/08/2010 Unspecified cataract x2 Unspecified congenital anomaly of heart mvp PAST SURGICAL HISTORY Procedure Laterality Date APPENDECTOMY 07/25/2007 DELIVERY ONLY 02/24/1976 , low transverse COLONOSCOPY FLX DX W/COLLJ SPEC WHEN PFRMD Colonoscopy x 2 COLONOSCOPY FLX DX W/COLLJ SPEC WHEN PFRMD 09/14/2012 Colonoscopy PAST SURGICAL HISTORY OF cyst frm breast left, benign PAST SURGICAL HISTORY OF 07/25/2007 oophorectomy bilateral REMV CATARACT EXTRACAP,INSERT LENS Bilateral 04/23 and 05/07 SOCIAL HISTORY Social History Tobacco Use Smoking status: Never Smokeless tobacco: Never Vaping Use Vaping status: Never Used Substance Use Topics Alcohol use: No Drug use: No FAMILY HISTORY Problem Relation Age of Onset Colon Cancer Mother chemo and radiation Coronary Artery Disease Mother Hypertension Mother Prostate Cancer Father Coronary Artery Disease Father age 90 of lung disease Coronary Artery Disease Brother asthma other (crohns disease) Daughter ALLERGIES: ALLERGIES Allergen Reactions Cobex Other: See Comments Face and tongue swelled Demerol [Meperidine* Other: See Comments sensitive to this Erthromycin [Erythr* Intolerance irritable bowel, nausea Iodinated Contrast * Rash Macrobid [Nitrofura* Other: See Comments irregular HR, black spots in eyes, and diaphoresis Penicillins Rash No reaction to amoxacillin. Steroids [Corticost* Shortness of Breath, Other: See Comments Throat closed up with cortisone cream Sulfa (Sulfonamide * Rash MEDICATIONS: Aspirin 81 mg tab Take 81 mg by mouth once daily. MEDICATION, NON-DATABASE reishi once per day nitroglycerin sublingual (NITROQUICK) 0.4 mg SL tablet Dissolve 1 tablet under the tongue as needed. For Chest Pain. If No Relief CALL 911 L (more content not included)... [facility] 10-18-2024 Telephone encounter Note Left detailed message to inform that pt should have hospital follow up with PCP to assess any ongoing restrictions. Elvia Magaña MA [facility] 10-18-2024 Miscellaneous Notes Left detailed message to inform that pt should have hospital follow up with PCP to assess any ongoing restrictions. Elvia Magaña MA Images from the original note were not included. Lorna Best APRN.CNP Typically, there are no restrictions for cardiomyopathy, whatever the patients symptoms will allow but I do not know if she had procedures or other co morbidities during hospitalization that would give her restrictions so I agree with PCP review. Thank you, BERTO Marquez Jessica E, APRN.CNP Called patient. Patient asking if she can resume normal activities after being discharged from [facility] last week with having tokotsubo cardiomyopathy again. Please review and advise. Patient educated on Troponin lab work. Patient also rescheduled for 11/28/24 due to extensive questions. Ermelinda Montilla RN Patient calling in again to check in about getting a call back with Dr. Mariee response. She states if she does not hear back today she will have to look at her options on what to do for herself. Patient is requesting a call back. Lorna Bone LPN Left detailed message that provider will likely not review message until Thursday. She should contact PCP or go back to ER if her symptoms are worrisome. Pt to call back with any further questions. Elvia Magaña MA Patient calling in requesting this to be added to her communication from 10/12/24. Pt states it was her first night at home last night and she woke up 1.5 hrs after going to bed with her left arm numb. She states she was sleeping on her right side at the time. She got up rubbed her arm, got a glass of water and took 1/2 of an ativan. She is also wondering if her report stated that she had a concussion?. Patient is requesting a call back after Dr. Curiel reviews her chart. Lorna Bone LPN Pt calling from [facility]. She was admitted after a fall though a wooden step that caused her to hit her head and have an apparent heart attack. She would like Dr. Curiel to review her results when available. She would like to know if she has any restrictions from her normal activity and exercise. Concerned about Troponin level that was over 1000. Cardio consult/ECHO/EKG/LABS/DC SUMMARY from [facility] admission are as follows: Scan on 10/13/2024 11:42 AM by Dirk Hernandez PA-C: 10/11/2024 Cardiology Consult inpatient [facility] Scan on 10/13/2024 11:37 AM by Dirk Hernandez PA-C: EKG Scan on 10/13/2024 11:34 AM by Dirk Hernandez PA-C: 10/12/2024 [facility] ECHO Scan on 10/13/2024 4:05 PM by Dirk Hernandez PA-C: 10/11/2024 Tropt/BNP [facility] Scan on 10/13/2024 4:06 PM by Dirk Hernandez PA-C: Discharge Summary documented in this encounter [facility] 10-18-2024 Telephone encounter Note Images from the original note were not included. Lorna Best APRN.CNP Typically, there are no restrictions for cardiomyopathy, whatever the patients symptoms will allow but I do not know if she had procedures or other co morbidities during hospitalization that would give her restrictions so I agree with PCP review. Thank you, BRETO Marquez Jessica E, APRN.CNP [facility] 10-17-2024 Telephone encounter Note Called patient. Patient asking if she can resume normal activities after being discharged from [facility] last week with having tokotsubo cardiomyopathy again. Please review and advise. Patient educated on Troponin lab work. Patient also rescheduled for 11/28/24 due to extensive questions. Ermelinda Montilla RN [facility] 10-17-2024 Telephone encounter Note Patient calling in again to check in about getting a call back with Dr. Mariee response. She states if she does not hear back today she will have to look at her options on what to do for herself. Patient is requesting a call back. Lorna Bone LPN [facility] 10-14-2024 Telephone encounter Note Left detailed message that provider will likely not review message until Thursday. She should contact PCP or go back to ER if her symptoms are worrisome. Pt to call back with any further questions. Elvia Magaña MA [facility] 10-14-2024 Telephone encounter Note Patient calling in requesting this to be added to her communication from 10/12/24. Pt states it was her first night at home last night and she woke up 1.5 hrs after going to bed with her left arm numb. She states she was sleeping on her right side at the time. She got up rubbed her arm, got a glass of water and took 1/2 of an ativan. She is also wondering if her report stated that she had a concussion?. Patient is requesting a call back after Dr. Curiel reviews her chart. Lorna Bone LPN [facility] 10-12-2024 Discharge summary [facility] 10-12-2024 Discharge summary [facility] 10-12-2024 Note [facility] Medical Records Department [address] [place] [address] Discharge Summary 10/12/24 1453 MR#: [id number] Acct: [id number] Name: BHARATI HILLIARD Rep #: [id number] : 1940 84 From: Vee Chavarria MD PCP: Dr. Cira Ku, Status:ADM MARYCRUZ Location: [place] [address] Providers Date of Admission: 10/11/24 Date of Discharge: 10/12/24 Primary Care Physician: Dr. Cira Ku, Reason For Visit: ELEVATED TROPONIN W/ H.O TAKUTSUBO, FALL W/ WEAKNE Diagnosis Discharge Diagnosis (1) Fall down stairs: Status: Acute Code(s): W10.8XXA - Fall (on) (from) other stairs and steps, initial encounter (2) Elevated troponin: Status: Acute Code(s): R77.8 - Other specified abnormalities of plasma proteins Medications at Discharge Home Medications turmeric 100 mg-sae 150 mg-olive 50 mg-oreg 150 mg-capryl capsule 1 cap PO DAILY PRN supplement, bone health 11/01/20 ascorbic acid (vitamin C) 1,000 mg tablet 1 g PO DAILY supplement 12/03/20 cholecalciferol (vitamin D3) 50 mcg (2,000 unit) capsule 50 mcg PO DAILY supplement 12/03/20 mecobalamin (vitamin B12) 1,000 mcg chewable tablet 1,000 mcg PO DAILY supplement 12/03/20 lactobacillus combination no.9 4 billion cell capsule (Adult 50 Plus Probiotic) 4,000 mmu cells PO DAILY 04/12/21 selenium 200 mcg tablet 200 mcg PO DAILY jamie's 04/12/21 metoprolol tartrate 25 mg tablet 12.5 mg (1/2 x 25 mg) PO QHS heart #45 tabs 05/09/21 ascorbic acid 100 mg-elderberry fruit 50 mg chewable tablet 1 tab PO DAILY PRN during cold and flu season, supplement 11/06/21 lorazepam 0.5 mg tablet 0.25 mg PO DAILY PRN anxiety 11/06/21 magnesium 200 mg tablet 200 mg PO QHS 10/11/24 vitamin B complex (Balanced B-50 tablet) 1 tab PO DAILY supplement 10/11/24 Hospital Course Operations None Procedures 2-D Echocardiogram Summary of Care Provided Minutes Spent on Discharge: 45 Hospital Course: Patient is an 84-year-old female with a past medical history as outlined who was admitted through the ED on 10/11/2024 after she sustained a fall. She went to a flower shop on the day of admission and fell through a rotten wood step. She said the back of her head. She had had several episodes of Takotsubo cardiomyopathy back in 2008, 2011 and 2019. She also complained of mild chest pressure which she said was similar to when she had Takotsubo. On admission she was mildly hypertensive and tachycardic. Chest x-ray was unremarkable. Initial troponin was 10 but subsequent troponin subsequently trended upwards to over 600. Cardiology was consulted and patient told cardiology that her previous cardiac catheter showed clean coronaries and so she did not want to have a cardiac cath. She was however amenable for TTE. She was admitted and managed for non-STEMI thought to be due to Takotsubo cardiomyopathy. She did have 2D echo which showed EF of 40% with hypokinesis of the left ventricle and Takotsubo fashion. She remained stable and was discharged home on 10/12/2024 per cardiology recommendations. She is follow-up with her primary care doctor and cardiology within 1 to 2 weeks. Patient seen and examined prior to discharge. She had no active complaints. Chest pain had not recurred. Review of systems otherwise negative. She again reiterated that she did not want any further workup done as she felt this was similar to her Takotsubo's. Labs and vitals reviewed. All medication reviewed and reconciled. Physical Exam Const alert, oriented x3 and no apparent distress General Appearance: cooperative and comfortable Exam Limitations: no limitations HEENT normocephalic, head/scalp atraumatic, hearing grossly normal bilaterally and moist oral mucous membranes Mouth: oral and palatal mucosa normal Eyes EOMs intact bilaterally and conjunctivae normal Neck supple and no JVD Resp normal respiratory effort, no use of accessory muscles and clear to auscultation bilaterally Cardio regular rate, regular rhythm, S1 normal heart sound, S2 normal heart sound and no murmurs GI normal to inspection, nondistended, normoactive bowel sounds, soft to palpation and non-tender Extremity normal to inspection, full ROM and no clubbing, cyanosis or edema Skin no rashes or lesions noted Neuro oriented x3, CN's II-XII intact bilaterally, moves all extremities and no focal motor deficits Sensorium / Orientation: awake and alert Motor Exam: strength 5/5 throughout Psych affect normal Weight / BMI Weight Weight: 100 lb 12.02 oz Body Mass Index (BMI) 18.4 ABG / Lab / Microbiology Data 10/12/24 04:45 10/12/24 04:45 Laboratory: Laboratory Results - last 24 hr 10/11/24 13:10: NT pro BNP II 491, TSH 2.410 10/11/24 15:39: Troponin T Hi Sens 4Hr 1573 H* 10/12/24 04:45: WBC 7.7, RBC 4.14 L, Hgb 11.9 L, Hct 35.6 L, MCV 86.0, MCH 28.7, MCHC 33.4, R (more content not included)... [facility] 10-12-2024 Hospital Discharge instructions Additional Instructions Date of Discharge: 10/12/24 [facility] Work Phone: 10-12-2024 Telephone encounter Note Pt calling from [facility]. She was admitted after a fall though a wooden step that caused her to hit her head and have an apparent heart attack. She would like Dr. Curiel to review her results when available. She would like to know if she has any restrictions from her normal activity and exercise. Concerned about Troponin level that was over 1000. Cardio consult/ECHO/EKG/LABS/DC SUMMARY from [facility] admission are as follows: Scan on 10/13/2024 11:42 AM by Dirk Hernandez PA-C: 10/11/2024 Cardiology Consult inpatient [facility] Scan on 10/13/2024 11:37 AM by Dirk Hernandez PA-C: EKG Scan on 10/13/2024 11:34 AM by ProviderDirk PA-C: 10/12/2024 [facility] ECHO Scan on 10/13/2024 4:05 PM by Dirk Hernandez PA-C: 10/11/2024 Tropt/BNP [facility] Scan on 10/13/2024 4:06 PM by Dirk Hernandez PA-C: Discharge Summary [facility] 10-11-2024 History and physi chito note Note Date/Time October 11, 2024 3:09pm [facility] Medical Records Department [address] [place] [id number] H&P Exam - Hospitalist 10/11/24 1413 MR#: [id number] Acct: [id number] Name: BHARATI HILLIARD Rep #:[id number] : 1940 84 From: Timothy romano DO PCP: Dr. Cira Ku, DO Status:AD M MARYCRUZ Location: [place] [id number] HPI - General General Date of Admission: 10/11/24 Date of Service: 10/11/24 Chief Complaint: Fall HPI Narrative BHARATI HILLIARD, is a 84 F who presented to [facility] ED on 10/11/2024 after a fall. Patient lives at home alone, has good functional status of baseline. She was at a flower shop in town this morning when she stepped through a rotting wooden step, which caused her to fall and hit the back of her head. Importantly, medical history is notable for three episodes of Takutsubo cardiomyopathy. Per patient, episodes were in 2008, 2011 and 2019. In the ED EKG showed significant ST elevations in V3-6 so STEMI alert was called. Cardiology evaluated patient at the bedside shortly after. Patient noted mild chest pressure that started in the ED, but stated it was consistent with prior chest pressure that she had with Takotsubo episodes. She was hypertensive and had mild sinus tachycardia, was otherwise stable on room air. Chest x-ray was unremarkable. Troponin trend 10 > 687. Patient discussed with cardiology and noted her prior heart caths have shown clean coronaries, so she is refusing repeat catheterization at this time. However, she is amenable to admission for TTE and trending troponins. Hospitalist was then contacted for admission. I saw the patient at bedside in the ED, son-in-law was present. Patient was sitting back comfortably in bed, conversing normally, in no acute distress. Shewas alert and oriented x 3. She noted very mild chest pressure currently, improved from earlier this afternoon. Her only other concerns are mild pain in the back of her head where she fell, as well as mild low back pain. Of note, CTbrain and C-spine were unremarkable. No point tenderness to palpation in L-spine and good range of motion on exam. She denied any other acute concerns currently. Will be admitted for further management. [facility] Medical History (Updated 10/11/24 @ 15:[address] Timothy Baird, DO) Hypothyroidism Elevated troponin Takotsubo cardiomyopathy History of left heart catheterization (08/10/19) Abrasion of knee, bilateral History of uterine cancer Cystadenoma History of supraventricular tachycardia History of coronary vasospasm History of non-ST elevation myocardial infarction (NSTEMI) History of uterine cancer Vitamin D deficiency Essential hypertension Personal history of colonic polyps Jamie's disease Cataract Elevated LFTs Anxiety and depression Psoriasis IBS (irritable bowel syndrome) Home Medications ?Medication ?Instructions ?Recorded ?Last Taken ?Type turmeric 100 mg-sae 150 1 cap PO 11/01/20 Unknown H istory mg-olive 50 mg-oreg 150 mg-capryl capsule ascorbic acid (vitamin C) 1,000 mg 1 g PO DAILY Unknown History tablet cholecalciferol (vitamin D3) 50 50 mcg PO DAILY Unknown History mcg (2,000 unit) capsule mecobalamin (vitamin B12) 1,000 1,000 mcg PO DAILY 01/13 Unknown History mcg chewable tablet lactobacillus combination no.9 4 4,000 mmu cells PO DA NATALIIA 04/12/21 Unknown History billion cell capsule (Adult 50 Plus Probiotic) selenium 200 mcg tablet 200 mcg PO DAILY 04/12/21 Un known History metoprolol tartrate 25 mg tablet 12.5 mg (1/2 x 25 mg) PO QHS #45 05/09/21 Unknown Rx tabs ascorbic acid 100 mg-elderberry 1 tab PO DAILY 2 Unknown History fruit 50 mg chewable tablet lorazepam 0.5 mg tablet 0.25 mg PO DAILY PRN anxiety 11/06/21 Unknown History vitamin B complex (Balanced B-50 1 tab PO DAILY Unknown History tablet) Allergy/AdvReac Type Severity Reaction Status Date / Time cortisone Allergy Severe Throat Verified 10/11/24 10:58 swelling nitrofurantoin (From Allergy Severe Irregular Verified 10/11/24 10:58 Macrobid) HB, vision changes, diaphoresis erythromycin base Allergy Intermediate Unknown Verified 10/11/24 10:58 meperidine (From Demerol) Allergy Intermediate Unknown Verified 10/11/24 10:58 cyanocobalamin (vitamin B12) Allergy Anaphylaxis Verified 10/11/24 10:58 Iodinated Contrast Media Allergy Rash Verified 10/11/24 10:58 (Iodinated Contrast Media - Oral and) Penicillins Allergy Rash Verified 10/11/24 10:58 Sulfa (Sulfonamide Allergy Rash Verified 10/11/24 10:58 Antibiotics) Family History Father , Age 90 Cancer prostate CAD (coronary artery disease) Pacemaker COPD (chronic obstructive pulmonary disease) Brother CAD (coronary artery disease) CABG x 5 Hypertension Heart disease Mother CAD (coronary artery disease) CABG Heart disease CVA (cerebral vascular accident) Cancer rectal Surgical History History of bilateral cataract extraction History of tonsillectomy History of benign breast tumor History of colonoscopy History of bilateral oophorectomy History of hysterectomy History of section History of appendectomy Social History Smoking Status: Never smoker alcohol intake: never substance use type: does not use caffeine: No what type of physical activity do you participate in: walking and weight training frequency: daily seatbelt use: always do you feel safe at home: Yes additional social history: - retired ROS Constitutional Constitutional: Denies chills, fatigue, fever(s) or weakness Eyes Eyes: Denies change in vision Cardiovascular Cardiovascular: Reports chest pain; Denies dyspnea on exertion, edema, lightheadedness or palpitations Respiratory/Chest Respiratory/Chest: Denies cough, shortness of breath at rest, shortness of breath with exertion or wheezing Gastrointestinal Gastrointestinal: Denies abdominal pain Musculoskeletal Musculoskeletal: Reports back pain; Denies arthralgias, joint pain, joint swelling, myalgias or neck pain Neurologic Neurologic: Denies dizziness, focal weakness, headache(s), numbness or tingling Vital Signs Vital Signs Vital Signs: 10/11/24 10:55 10/11/24 11:49 10/11/24 11:52 Temperature 97.9 F Temperature Source Oral Pulse Rate 67 Respiratory Rate 16 Respiratory Effort Normal Respiratory Depth Normal Respiratory Pattern Normal Blood Pressure 193/85 H Blood Pressure Mean 121 Pulse Ox 100 Oxygen Delivery Method Room Air Room Air 10/11/24 13:00 10/11/24 14:12 Temperature 98.1 F Temperature Source Pulse Rate 106 H 94 Respiratory Rate 23 H 18 Respiratory Effort Respiratory Depth Respiratory Pattern Blood Pressure 167/86 H 155/70 H Blood Pressure Mean 113 98 Pulse Ox 100 100 Oxygen Delivery Method Weight Weight: 45.7 kg Body Mass Index (BMI) 18.4 Physical Exam Const alert, oriented x3, no apparent distress and average body habitus Constitutional Narrative: Pleasant elderly female, alert and oriented x 3, sitting back comfortably in bed, conversing normally, in no acute distress. General Appearance: cooperative and comfortable HEENT normocephalic, head/scalp atraumatic, hearing grossly normal bilaterally, nasal mucous membranes and turbinates normal and moist oral mucous membranes Eyes PERRL, EOMs intact bilaterally and conjunctivae normal Neck full ROM Chest inspection of chest normal Resp normal respiratory effort, normal air movement, no use of accessory muscles and clear to auscultation bilaterally Cardio no murmurs and peripheral pulses 2+ throughout Cardio Narrative: Tachycardic, regular rhythm. GI normal to inspection, nondistended, normoactive bowel sounds, soft to palpation,non-tender and non-distended Back/Spine normal ROM Extremity normal to inspection, full ROM and no pedal edema Skin no rashes or lesions noted Psych mental status grossly normal Results Lab / Micro Data 10/11/24 11:02 10/11/24 11:02 Labs: Laboratory Results - last 24 hr 10/11/24 11:02: WBC 7.9, RBC 4.99, Hgb 14.7, Hct 42.9, MCV 86.0, MCH 29.5, MCHC 34.3, RDW Std Deviation 39.9, RDW Coeff of Lena 12.9, Plt Count 287, MPV 10.5, Immature Gran % (Auto) 0.300, Neut % (Auto) 53.8, Lymph % (Auto) 35.7, [place] % (Auto) 9.1, Eos % (Auto) 0.5, Baso % (Auto) 0.6, Absolute Neuts (auto) 4.3, Absolute Lymphs (auto) 2.82, Nucleated RBC % 0, Sodium 132 L, Potassium 4.6, Chloride 93 L, Carbon Dioxide 21.5, Anion Gap 17 H, BUN 18, Creatinine 0.81, Estim Creat Clear Calc 37.97 L, Est GFR (MDRD) Non-Af 72, BUN/Creatinine Ratio 22.8 H, Glucose 112 H, Calcium 9.8, Troponin T High Sens 10 10/11/24 13:10: Troponin T Hi Sens 2 Hr 687 H* Imaging Radiology Impression Brain CT 10/11/24 11:40 IMPRESSION: No acute intracranial pathology. Reading Location: [facility] Cervical Spine CT 10/11/24 11:40 IMPRESSION: There is loss of the lordosis which can be secondary to position or spasm. There is grade 1 retrolisthesis at C4-5, 0.2 cm. There is loss of disc height from C4-7. There is no visible acute traumatic injury. Reading Location: [facility] Chest X-Ray 10/11/24 11:40 IMPRESSION: No acute cardiopulmonary process. Thoracolumbar curvature of the spine to the right. Reading Location: [id number] Assessment & Plan Assessment/Plan (1) Fall down stairs: (2) Elevated troponin: PLAN: Plan Patient is an 84-year-old female who presented to [facility] ED on 10/11/2024 after a mechanical fall. 1. Elevated troponins with ST elevations on EKG and concern for recurrent Takotsubo cardiomyopathy; history of hypertension, hyperlipidemia and SVT ? Admit under observation status to PCU. Previously followed with [facility], last office visit in 2021. History of 3 episodes of Takotsubo cardiomyopathy in 2008, 2011 and 2019. Last episode in 2019 occurred here; cardiac cath in 07/2019 showed nonobstructive CAD, estimated EF 35%. Echo in 10/2019 showed recovered EF of 65%, no other concerning findings. Initial EKG inthe ED showed significant ST elevations in leads V3 through V6; repeat EKG 2 hours later with improvement in ischemic changes. Troponin trend 10 > 687. Chest x-ray unremarkable, no concern for volume overload. Patient with very mild chest pressure noted. Patient notably is refusing heart cath at this time. Cardiology evaluated in the ED; per their recs, will obtain echo, trend troponin to peak and continue cardiac monitoring. Hypertensive to the 160s systolic in the ED. Will continue home low-dose Lopressor and add IV hydralazine as needed for SBP greater than 170 or now. Can consider initiating losartan but notably patient is hesitant to start any new medications, as she states she has had issues with many medications in the past. Last lipid panel in 2020 was borderline and patient preferred dietary changes; repeat lipid panelordered. Will hold on cardiology consult as I suspect outpatient follow-up will be sufficient, but can consider consult as needed. 2. Mechanical fall ? Had mechanical fall at flower shop in town when she fell through a rotting wooden stair. Lives at home alone, reports good functional status at baseline. CT brain and cervical spine unremarkable. Small hematoma on posterior scalp andmild low back pain noted by patient. Will have PT and OT evaluate patient in the morning but anticipate she will be fine for discharge home. 3. Anxiety ? Per history. Has been on Ativan 0.25 mg daily as needed for many years. Notes that in the past, taking an extra dose of Ativan has helped to bring her blood pressures down during episodes of Takotsubo's cardiomyopathy. Given dose of p.o. Ativan 0.5 mg in the ED. Okay to continue home Ativan as needed with first dose available later this evening. DVT prophylaxis: Lovenox CODE STATUS: Full code, verified Expected disposition: Home, 1 to 2 days Total clinical time spent by myself addressing the patient's medical issues, reviewing all the data, and collaborating with patient's care team: 75 minutes. Charges/Coding Visit Charges Inpatient E&M: 76826 Init Hosp L3 10/11/24 1509 <Electronically signed by Timothy Baird DO> Cosigner Signature (if applicable): CC: Dr. Timothy Baird DO; Dr. Cira Ku DO~ Signed [facility] Work Phone: [phone] 234-339608-19-2025 Discharge summary Author Zeyad Moe [facility] Note Date/Time October 11, 2024 2: 16pm [facility] Medical Records Department [address] [place] [address] Emergency Department Summary 10/11/24 MR#: [id number] Acct: [id number] Name: BHARATI HILLIARD Rep #:[id number] : 1940 84 From: Zeyad Moe MD PCP: Dr. Cira Ku DO Status:RE G ER Location: ED HPI HPI - Fall History of Present Illness Chief Complaint: Fall Narrative Narrative: 84-year-old female past medical history of Takotsubo cardiomyopathy presents status post fall at the flower shop prior to arrival. She states that she fell down a few stairs and hit the back of her head. There was no loss of consciousness she denies any neck pain or chest pain. She states she felt weak,and initially may have had numbness of both legs. Of note, she states that she has had Takotsubo 3 times prior to this. She has had previous heart catheterizations and they have never found any blockage. She states that the left ventricle usually swells and can cause her enzymes to elevate, but with catheterization she has never had arterial occlusion. She complains mainly of alump on the back of her head, but denies any neck pain, or other injury. She does not take blood thinners. [facility] Medical History Hypothyroidism Elevated troponin Takotsubo cardiomyopathy History of left heart catheterization (08/10/19) Abrasion of knee, bilateral History of uterine cancer Cystadenoma History of supraventricular tachycardia History of coronary vasospasm History of non-ST elevation myocardial infarction (NSTEMI) History of uterine cancer Vitamin D deficiency Essential hypertension Personal history of colonic polyps Jamie's disease Cataract Elevated LFTs Anxiety and depression Psoriasis IBS (irritable bowel syndrome) Home Medications ?Medication ?Instructions ?Recorded ?Last Taken ?Type turmeric 100 mg-sae 150 1 cap PO 11/01/20 Unknown H istory mg-olive 50 mg-oreg 150 mg-capryl capsule ascorbic acid (vitamin C) 1,000 mg 1 g PO DAILY Unknown History tablet cholecalciferol (vitamin D3) 50 50 mcg PO DAILY Unknown History mcg (2,000 unit) capsule mecobalamin (vitamin B12) 1,000 1,000 mcg PO DAILY 01/13 Unknown History mcg chewable tablet lactobacillus combination no.9 4 4,000 mmu cells PO DA NATALIIA 04/12/21 Unknown History billion cell capsule (Adult 50 Plus Probiotic) selenium 200 mcg tablet 200 mcg PO DAILY 04/12/21 Un known History metoprolol tartrate 25 mg tablet 12.5 mg (1/2 x 25 mg) PO QHS #45 05/09/21 Unknown Rx tabs ascorbic acid 100 mg-elderberry 1 tab PO DAILY 2 Unknown History fruit 50 mg chewable tablet lorazepam 0.5 mg tablet 0.25 mg PO DAILY PRN anxiety 11/06/21 Unknown History vitamin B complex (Balanced B-50 1 tab PO DAILY Unknown History tablet) Allergy/AdvReac Type Severity Reaction Status Date / Time cortisone Allergy Severe Throat Verified 10/11/24 10:58 swelling nitrofurantoin (From Allergy Severe Irregular Verified 10/11/24 10:58 Macrobid) HB, vision changes, diaphoresis erythromycin base Allergy Intermediate Unknown Verified 10/11/24 10:58 meperidine (From Demerol) Allergy Intermediate Unknown Verified 10/11/24 10:58 cyanocobalamin (vitamin B12) Allergy Anaphylaxis Verified 10/11/24 10:58 Iodinated Contrast Media Allergy Rash Verified 10/11/24 10:58 (Iodinated Contrast Media - Oral and) Penicillins Allergy Rash Verified 10/11/24 10:58 Sulfa (Sulfonamide Allergy Rash Verified 10/11/24 10:58 Antibiotics) Family History Father , Age 90 Cancer prostate CAD (coronary artery disease) Pacemaker COPD (chronic obstructive pulmonary disease) Brother CAD (coronary artery disease) CABG x 5 Hypertension Heart disease Mother CAD (coronary artery disease) CABG Heart disease CVA (cerebral vascular accident) Cancer rectal Surgical History History of bilateral cataract extraction History of tonsillectomy History of benign breast tumor History of colonoscopy History of bilateral oophorectomy History of hysterectomy History of section History of appendectomy Social History Smoking Status: Never smoker alcohol intake: never substance use type: does not use caffeine: No what type of physical activity do you participate in: walking and weight training frequency: daily seatbelt use: always do you feel safe at home: Yes additional social history: - retired ROS ROS ED ROS Narrative Review of systems positive for occipital hematoma status post fall. Denies neckpain. No chest pain. No prodromal symptoms prior to fall. EXAM Physical Exam Narrative Exam Narrative: GCS 15. ABCs are intact. Inspection of the occiput does reveal mild tendernesswith noted hematoma but no crepitance. Neck soft and supple with full range of motion, no vertebral point tenderness or bony step-off. Cardiovascular examination regular rate and rhythm. Lungs are clear to auscultation bilaterally. Abdomen is soft nontender with normoactive bowel sounds. Neurological examination nonfocal, nonlateralizing, awake, alert, able to give distinct history of Takotsubo. Const Vital Signs: 10/11/24 10:55 10/11/24 11:49 10/11/24 11:52 Temperature 97.9 F Temperature Source Oral Pulse Rate 67 Respiratory Rate 16 Respiratory Effort Normal Respiratory Depth Normal Respiratory Pattern Normal Blood Pressure 193/85 H Blood Pressure Mean 121 Pulse Ox 100 Oxygen Delivery Method Room Air Room Air 10/11/24 13:00 10/11/24 14:12 Temperature 98.1 F Temperature Source Pulse Rate 106 H 94 Respiratory Rate 23 H 18 Respiratory Effort Respiratory Depth Respiratory Pattern Blood Pressure 167/86 H 155/70 H Blood Pressure Mean 113 98 Pulse Ox 100 100 Oxygen Delivery Method MDM MDM MDM Narrative Medical decision making narrative: Initially, EKG had been obtained by RN. On my independent interpretation, she does have sinus tachycardia [address] elevation diffusely, but mainly anterolaterally. STEMI activation had been initiated. However, the patient is very insistent that she has had Takotsubo and this is what happens after she falls. She is not currently having chest pain. I did discuss the patient with Dr. Hdz with cardiology who is currently at the bedside with the patient. Sheis refusing cardiac catheterization. I will obtain CT of the brain and C-spine to help rule out acute intracranial hemorrhage versus cervical spine fracture. Cardiology did also suggest obtaining enzymes, and further workup as an inpatient. I reviewed the radiology report of the CT of the brain and the C-spine. There is no evidence of an acute intracranial hemorrhage or skull fracture. She has degenerative changes of the cervical spine on the CT report but no evidence of an acute fracture. Chest x-ray interpreted by myself independently in 1 view shows no acute process, no pneumonia or pneumothorax. I reviewed the radiology report which confirms my independent interpretation and comments on curvature ofthe thoracolumbar spine to the right. I reviewed her laboratory work and she has normal white count of 7.9, hemoglobinnormal at 14.7 with hematocrit 42.9, platelet count normal at 287. BMP shows sodium low at 132, but she has chronic hyponatremia with compared to prior laboratory work. Chloride 93. BUN of 18 and creatinine normal at 0.81. Glucose 112. She has slightly elevated anion gap of 17 which may be from her hyponatremia. Initial high-sensitivity troponin is 10 with repeat being elevated at 687. Patient states that Ativan usually helps with her history of Takotsubo. She was administered Ativan 0.5 mg orally. Given the rise in her cardiac enzymes, patient will be discussed with the hospitalist for admission tot PCU. She is in stable condition. History & Record Review Discussion w/independent historian: Patient and Family (Son-in-law) Lab Data Attestation: I reviewed the patient's lab results. Labs: Laboratory Results - last 24 hr 10/11/24 10/11/24 11:02 13:10 WBC 7.9 RBC 4.99 Hgb 14.7 Hct 42.9 MCV 86.0 MCH 29.5 MCHC 34.3 RDW Std Deviation 39.9 RDW Coeff of Lena 12.9 Plt Count 287 MPV 10.5 Immature Gran % (Auto) 0.300 Neut % (Auto) 53.8 Lymph % (Auto) 35.7 [place] % (Auto) 9.1 Eos % (Auto) 0.5 Baso % (Auto) 0.6 Absolute Neuts (auto) 4.3 Absolute Lymphs (auto) 2.82 Nucleated RBC % 0 Sodium 132 L Potassium 4.6 Chloride 93 L Carbon Dioxide 21.5 Anion Gap 17 H BUN 18 Creatinine 0.81 Estim Creat Clear Calc 37.97 L Est GFR (MDRD) Non-Af 72 BUN/Creatinine Ratio 22.8 H Glucose 112 H Calcium 9.8 Troponin T High Sens 10 Troponin T Hi Sens 2 Hr 687 H* Radiography Diagnostic Testing: Clinical Impression(s) from Imaging Studies Brain CT 10/11/24 11:40 IMPRESSION: No acute intracranial pathology. Reading Location: [facility] Cervical Spine CT 10/11/24 11:40 IMPRESSION: There is loss of the lordosis which can be secondary to position or spasm. There is grade 1 retrolisthesis at C4-5, 0.2 cm. There is loss of disc height from C4-7. There is no visible acute traumatic injury. Reading Location: [facility] Chest X-Ray 10/11/24 11:40 IMPRESSION: No acute cardiopulmonary process. Thoracolumbar curvature of the spine to the right. Reading Location: [id number] Management Discussion w/another healthcare provider: Hospitalist (Dr. Baird) Discharge Plan Dx/Rx/DC Orders Clinical Impression: Takotsubo cardiomyopathy, Elevated troponin, Fall down stairs, Closed head injury [facility] What to do if you have Problems For any increased pain, shortness of breath, bleeding, nausea or vomiting, chestpain, or any unexpected problems, contact your Primary Care Provider. Call [facility] ([phone]) or report to the closest Emergency Room. Call 911 if necessary. 10/11/24 141 <Electronically signed by Zeyad Moe MD> Cosigner Signature (if applicable): CC: Dr. Cira Ku, DO ~ Signed ADDENDUM by Dr. Zeyad Moe MD on 10/11/24 at 1416 Additionally, repeat EKG was obtained and interpreted by myself independently assinus tachycardia at [address] changes. Her ST elevation on the primary/first EKG has resolved. 10/11/241415<Electronically signed by Zeyad Moe MD> Cosigner Signature (if applicable): cc: Dr. Cira Ku DO ~* Signed [facility] Work Phone: 1(221) 206-705608-19-2025 Evaluation note* Diagnosis Onset Date Resolution Status Admit Date Closed head injury acute October 11, 2024 2:13pm Elevated troponin acute October 11, 2024 2:13pm Fall down stairs acute September 232024 2:13pm HLD (hyperlipidemia) acute Aug st 2024 2:13pm Takotsubo cardiomyopathy acute October 11, 2024 2:13pm Essential hypertension chronic Au torsten 2024 2:13pm History of supraventricular tachycardia chronic October 11 2:13pm [facility] Work Phone: [phone] 972-191308-19-2025 Consult note Author Nova Hdz [facility] Note Date/Time October 11, 2024 1: 16pm [facility] Medical Records Department [address] [place] [address] Consultation - Cardiology 10/11/24 1206 MR#: [id number] Acct: [id number] Name: BHARATI HILLIARD Rep #:[id number] : 1940 84 From: Nova Hdz MD PCP: Dr. Cira Ku DO Status:RE G ER Location: ED Assessment & Plan Assessment/Plan (1) Takotsubo cardiomyopathy: (2) History of supraventricular tachycardia: (3) Essential hypertension: (4) HLD (hyperlipidemia): QUALIFIERS: Hyperlipidemia type: moderate mixed hyperlipidemia notrequiring statin therapy Qualified Code(s): E78.2 - Mixed hyperlipidemia PLAN: Plan -continue to trend troponin to peak, however, after extended discussion with patient, if she does not have any cardiac causes for remaining in hospital, it is reasonable to discharge with outpatient followup -TTE to be done (inpatient or outpatient, pending clinical course) -if BP remains elevated, would start losartan 25mg daily -telemetry monitoring -recommend initiation of statin given DLD and ASCVD risk PT Evaluation Evaluation for neurologic deficit and/or intracranial bleed HPI Consult Data Date of Consult: 10/11/24 HPI Narrative HPI Narrative: BHARATI HILLIARD, is a 84 F past cardiovascular history which is included underlying Takotsubo syndrome (3 occurrences), SVT, and hypertension who presented to ED after a mechanical fall in which she hit her head. ECG with diffuse ST elevations, most prominent in anterior leads, and code STEMI called. Patient denies shortness of breath, chest pain, or other symptoms. States she knows this is her Takutsubo acting up, and does not wish to undergo cardiac catheterization. Discussed extensively with family and patient regarding her history, risks and benefits of proceeding with cath, as well as red flag symptoms. Patient states she stepped and her foot went through a rotting step on a wooden staircase, and that's what caused her to hit her head. No LOC, palpitations, dizziness, or other prodrome. [facility] Medical History Hypothyroidism Elevated troponin Takotsubo cardiomyopathy History of left heart catheterization (08/10/19) Abrasion of knee, bilateral History of uterine cancer Cystadenoma History of supraventricular tachycardia History of coronary vasospasm History of non-ST elevation myocardial infarction (NSTEMI) History of uterine cancer Vitamin D deficiency Essential hypertension Personal history of colonic polyps Jamie's disease Cataract Elevated LFTs Anxiety and depression Psoriasis IBS (irritable bowel syndrome) Home Medications ?Medication ?Instructions ?Recorded ?Last Taken ?Type turmeric 100 mg-sae 150 cap PO 11/01/20 Unknown His tory mg-olive 50 mg-oreg 150 mg-capryl capsule ascorbic acid (vitamin C) 1,000 mg 1 g PO DAILY Unknown History tablet cholecalciferol (vitamin D3) 50 50 mcg PO DAILY Unknown History mcg (2,000 unit) capsule mecobalamin (vitamin B12) 1,000 1,000 mcg PO DAILY 01/13 Unknown History mcg chewable tablet lactobacillus combination no.9 4 4,000 mmu cells PO DA ANTALIIA 04/12/21 Unknown History billion cell capsule (Adult 50 Plus Probiotic) selenium 200 mcg tablet 200 mcg PO DAILY 04/12/21 Un known History metoprolol tartrate 25 mg tablet 12.5 mg (1/2 x 25 mg) PO QHS #45 05/09/21 Unknown Rx tabs ascorbic acid 100 mg-elderberry 1 tab PO DAILY 2 Unknown History fruit 50 mg chewable tablet lorazepam 0.5 mg tablet 0.25 mg PO DAILY PRN anxiety 11/06/21 Unknown History amlodipine 2.5 mg tablet 2.5 mg PO DAILY PRN Ordered by 07/03/22 Unknown History [place] for travel if BP goes up amoxicillin 250 mg capsule 500 mg (2 x 250 mg) PO BID #28 caps 01/05/23 Unknown Rx Allergy/AdvReac Type Severity Reaction Status Date / Time cortisone Allergy Severe Throat Verified 10/11/24 10:58 swelling nitrofurantoin (From Allergy Severe Irregular Verified 10/11/24 10:58 Macrobid) HB, vision changes, diaphoresis erythromycin base Allergy Intermediate Unknown Verified 10/11/24 10:58 meperidine (From Demerol) Allergy Intermediate Unknown Verified 10/11/24 10:58 cyanocobalamin (vitamin B12) Allergy Anaphylaxis Verified 10/11/24 10:58 Iodinated Contrast Media Allergy Rash Verified 10/11/24 10:58 (Iodinated Contrast Media - Oral and) Penicillins Allergy Rash Verified 10/11/24 10:58 Sulfa (Sulfonamide Allergy Rash Verified 10/11/24 10:58 Antibiotics) Family History Father , Age 90 Cancer prostate CAD (coronary artery disease) Pacemaker COPD (chronic obstructive pulmonary disease) Brother CAD (coronary artery disease) CABG x 5 Hypertension Heart disease Mother CAD (coronary artery disease) CABG Heart disease CVA (cerebral vascular accident) Cancer rectal Surgical History History of bilateral cataract extraction History of tonsillectomy History of benign breast tumor History of colonoscopy History of bilateral oophorectomy History of hysterectomy History of section History of appendectomy Social History Smoking Status: Never smoker alcohol intake: never substance use type: does not use caffeine: No what type of physical activity do you participate in: walking and weight training frequency: daily seatbelt use: always do you feel safe at home: Yes additional social history: - retired Physical Exam Const alert, oriented x3, no apparent distress and healthy appearing HEENT HEENT Narrative: palpable hematoma at back of skull. Eyes PERRL Chest inspection of chest normal Resp normal respiratory effort and clear to auscultation bilaterally Cardio regular rate and regular rhythm GI normal to inspection, nondistended, normoactive bowel sounds Extremity normal to inspection, full ROM, normal capillary refill, no clubbing, cyanosis or edema and no pedal edema Skin no rashes or lesions noted Psych mental status grossly normal, thought process normal, cooperative and affect normal Objective Data Vital Signs: Vital Signs Temp Pulse Resp BP Pulse Ox O2 Del Method 97.9 F 67 16 193/85 H 100 Room Air 10/11/24 10:55 10/11/24 10:55 10/11/24 10:55 10/11/24 10:55 10/11/24 10:55 10/11/24 11:49 Oxygen Delivery Method Room Air Weight: 100 lb 12.02 oz Body Mass Index (BMI) 18.4 Intake & Output: Intake and Output for Last 24 Hours 10/09/24 10/10/24 10/11/24 23:59 23:59 23:59 Intake Total 0 / 0 Balance 0 / 0 Lab / Micro Data 10/11/24 11:02 10/11/24 11:02 Labs: Laboratory Results - last 24 hr 10/11/24 11:02: WBC 7.9, RBC 4.99, Hgb 14.7, Hct 42.9, MCV 86.0, MCH 29.5, MCHC 34.3, RDW Std Deviation 39.9, RDW Coeff of Lena 12.9, Plt Count 287, MPV 10.5, Immature Gran % (Auto) 0.300, Neut % (Auto) 53.8, Lymph % (Auto) 35.7, [place] % (Auto) 9.1, Eos % (Auto) 0.5, Baso % (Auto) 0.6, Absolute Neuts (auto) 4.3, Absolute Lymphs (auto) 2.82, Nucleated RBC % 0 Cardiology Labs/Tests 10/11/24 11:02: WBC 7.9, RBC 4.99, Hgb 14.7, Hct 42.9, MCV 86.0, MCH 29.5, MCHC 34.3, Plt Count 287, MPV 10.5, Immature Gran % (Auto) 0.300, Neut % (Auto) 53.8,Lymph % (Auto) 35.7, [place] % (Auto) 9.1, Eos % (Auto) 0.5, Baso % (Auto) 0.6, Absolute Neuts (auto) 4.3, Nucleated RBC % 0 Rhythm: EKG: ECHO: Stress Test: Cardiac Cath: PCI: CT Surgery: Holter monitor: EPS: PPM: CXR: Chest CT Scan: ROSALINDA Risk Score for UA/STEMI Assesmment (YES = 1) Risk Stratification Applicable: No Age > or = 65: Yes > or = 3 CAD risk factors (HTN, Hypercholesterolemia, Diabetes, family hx, current smoker): Yes Known CAD (Stenosis > or = 50%): No ASA used in past 7 days: Yes Severe angina (> or = 2 episodes in 24 hrs): No EKG ST change > or = 0.5mm: Yes Positive cardiac markers: No Score ROSALINDA Risk Score of mortality/ recurrent ischemic event over the next 14 days: 4 = 19.9% - Intermediate 10/11/24 1316 <Electronically signed by Nova Hdz MD> Cosigner Signature (if applicable): CC: Dr. Nova Hdz MD; Dr. Cira Ku DO~ Signed [facility] Work Phone: [phone] 601-195108-19-2025 History and physical note [facility] Medical Records Department [address] [place] [id number] H&P Exam - Hospitalist 10/11/24 1413 MR#: [id number] Acct: [id number] Name: BHARATI HILLIARD Rep #:[id number] : 1940 84 From: Timothy romano DO PCP: Dr. Cira Ku, DO Status:AD M MARYCRUZ [facility] - General General Date of Admission: 10/11/24 Date of Service: 10/11/24 Chief Complaint: Fall HPI Narrative BHARATI HILLIARD, is a 84 F who presented to [facility] ED on 10/11/2024 after a fall. Patient lives at home alone, has good functional status of baseline. She was at a flower shop in town this morning when she stepped through a rotting wooden step, which caused her to fall and hit the back of her head. Importantly, medical history is notable for three episodes of Takutsubo cardiomyopathy. Per patient, episodes were in 2008, 2011 and 2019. In the ED EKG showed significant ST elevations in V3-6 so STEMI alert was called. Cardiology evaluated patient at the bedside shortly after. Patient noted mild chest pressure that started in the ED, but stated it was consistent with prior chest pressure that she had with Takotsubo episodes. She was hypertensive and had mild sinus tachycardia, was otherwise stable on room air. Chest x-ray was unremarkable. Troponin trend 10 > 687. Patient discussed with cardiology and noted her prior heart caths have shown clean coronaries, so she isrefusing repeat catheterization at this time. However, she is amenable to admission for TTE and trending troponins. Hospitalist was then contacted for admission. I saw the patient at bedside in the ED, son-in-law was present. Patient was sitting back comfortably in bed, conversing normally, in no acute distress. Shewas alert and oriented x 3. She noted very mild chest pressure currently, improvedfrom earlier this afternoon. Her only other concerns are mild pain in the back of her head where she fell, as well as mild low back pain. Of note, CTbrain and C- spine were unremarkable. No point tenderness to palpation in L-spine and good range of motion on exam. She denied any other acute concernscurrently. Will be admitted for further management. [facility] Medical History (Updated 10/11/24 @ 15:[address] Timothy Baird, DO) Hypothyroidism Elevated troponin Takotsubo cardiomyopathy History of left heart catheterization (08/10/19) Abrasion of knee, bilateral History of uterine cancer Cystadenoma History of supraventricular tachycardia History of coronary vasospasm History of non-ST elevation myocardial infarction (NSTEMI) History of uterine cancer Vitamin D deficiency Essential hypertension Personal history of colonic polyps Jamie's disease Cataract Elevated LFTs Anxiety and depression Psoriasis IBS (irritable bowel syndrome) Home Medications ?Medication ?Instructions ?Recorded ?Last Taken ?Type turmeric 100 mg-sae 150 1 cap PO 11/01/20 Unknown H istory mg-olive 50 mg-oreg 150 mg-capryl capsule ascorbic acid (vitamin C) 1,000 mg 1 g PO DAILY Unknown History tablet cholecalciferol (vitamin D3) 50 50 mcg PO DAILY Unknown History mcg (2,000 unit) capsule mecobalamin (vitamin B12) 1,000 1,000 mcg PO DAILY 01/13 Unknown History mcg chewable tablet lactobacillus combination no.9 4 4,000 mmu cells PO DA NATALIIA 04/12/21 Unknown History billion cell capsule (Adult 50 Plus Probiotic) selenium 200 mcg tablet 200 mcg PO DAILY 04/12/21 Un known History metoprolol tartrate 25 mg tablet 12.5 mg (1/2 x 25 mg) PO QHS #45 05/09/21 Unknown Rx tabs ascorbic acid 100 mg-elderberry 1 tab PO DAILY 2 Unknown History fruit 50 mg chewable tablet lorazepam 0.5 mg tablet 0.25 mg PO DAILY PRN anxiety 11/06/21 Unknown History vitamin B complex (Balanced B-50 1 tab PO DAILY Unknown History tablet) Allergy/AdvReac Type Severity Reaction Status Date / Time cortisone Allergy Severe Throat Verified 10/11/24 10:58 swelling nitrofurantoin (From Allergy Severe Irregular Verified 10/11/24 10:58 Macrobid) HB, vision changes, diaphoresis erythromycin base Allergy Intermediate Unknown Verified 10/11/24 10:58 meperidine (From Demerol) Allergy Intermediate Unknown Verified 10/11/24 10:58 cyanocobalamin (vitamin B12) Allergy Anaphylaxis Verified 10/11/24 10:58 Iodinated Contrast Media Allergy Rash Verified 10/11/24 10:58 (Iodinated Contrast Media - Oral and) Penicillins Allergy Rash Verified 10/11/24 10:58 Sulfa (Sulfonamide Allergy Rash Verified 10/11/24 10:58 Antibiotics) Family History Father , Age 90 Cancer prostate CAD (coronary artery disease) Pacemaker COPD (chronic obstructive pulmonary disease) Brother CAD (coronary artery disease) CABG x 5 Hypertension Heart disease Mother CAD (coronary artery disease) CABG Heart disease CVA (cerebral vascular accident) Cancer rectal Surgical History History of bilateral cataract extraction History of tonsillectomy History of benign breast tumor History of colonoscopy History of bilateral oophorectomy History of hysterectomy History of section History of appendectomy Social History Smoking Status: Never smoker alcohol intake: never substance use type: does not use caffeine: No what type of physical activity do you participate in: walking and weight training frequency: daily seatbelt use: always do you feel safe at home: Yes additional social history: - retired ROS Constitutional Constitutional: Denies chills, fatigue, fever(s) or weakness Eyes Eyes: Denies change in vision Cardiovascular Cardiovascular: Reports chest pain; Denies dyspnea on exertion, edema, lightheadedness or palpitations Respiratory/Chest Respiratory/Chest: Denies cough, shortness of breath at rest, shortness of breath with exertion or wheezing Gastrointestinal Gastrointestinal: Denies abdominal pain Musculoskeletal Musculoskeletal: Reports back pain; Denies arthralgias, joint pain, joint swelling, myalgias or neck pain Neurologic Neurologic: Denies dizziness, focal weakness, headache(s), numbness or tingling Vital Signs Vital Signs Vital Signs: 10/11/24 10:55 10/11/24 11:49 10/11/24 11:52 Temperature 97.9 F Temperature Source Oral Pulse Rate 67 Respiratory Rate 16 Respiratory Effort Normal Respiratory Depth Normal Respiratory Pattern Normal Blood Pressure 193/85 H Blood Pressure Mean 121 Pulse Ox 100 Oxygen Delivery Method Room Air Room Air 10/11/24 13:00 10/11/24 14:12 Temperature 98.1 F Temperature Source Pulse Rate 106 H 94 Respiratory Rate 23 H 18 Respiratory Effort Respiratory Depth Respiratory Pattern Blood Pressure 167/86 H 155/70 H Blood Pressure Mean 113 98 Pulse Ox 100 100 Oxygen Delivery Method Weight Weight: 45.7 kg Body Mass Index (BMI) 18.4 Physical Exam Const alert, oriented x3, no apparent distress and average body habitus Constitutional Narrative: Pleasant elderly female, alert and oriented x 3, sitting back comfortably in bed, conversing normally, in no acute distress. General Appearance: cooperative and comfortable HEENT normocephalic, head/scalp atraumatic, hearing grossly normal bilaterally, nasal mucous membranes and turbinates normal and moist oral mucous membranes Eyes PERRL, EOMs intact bilaterally and conjunctivae normal Neck full ROM Chest inspection of chest normal Resp normal respiratory effort, normal air movement, no use of accessory muscles and clear to auscultation bilaterally Cardio no murmurs and peripheral pulses 2+ throughout Cardio Narrative: Tachycardic, regular rhythm. GI normal to inspection, nondistended, normoactive bowel sounds, soft to palpation,non-tender and non-distended Back/Spine normal ROM Extremity normal to inspection, full ROM and no pedal edema Skin no rashes or lesions noted Psych mental status grossly normal Results Lab / Micro Data 10/11/24 11:02 10/11/24 11:02 Labs: Laboratory Results - last 24 hr 10/11/24 11:02: WBC 7.9, RBC 4.99, Hgb 14.7, Hct 42.9, MCV 86.0, MCH 29.5, MCHC 34.3, RDW Std Deviation 39.9, RDW Coeff of Lena 12.9, Plt Count 287, MPV 10.5, Immature Gran % (Auto) 0.300, Neut % (Auto) 53.8, Lymph % (Auto) 35.7, [place] % (Auto) 9.1, Eos % (Auto) 0.5, Baso % (Auto) 0.6, Absolute Neuts(auto) 4.3, Absolute Lymphs (auto) 2.82, Nucleated RBC % 0, Sodium 132 L, Potassium 4.6, Chloride 93 L, Carbon Dioxide 21.5, Anion Gap 17 H, BUN 18, Creatinine 0.81, Estim Creat Clear Calc 37.97 L, Est GFR (MDRD) Non-Af 72, BUN/Creatinine Ratio 22.8 H, Glucose 112 H, Calcium 9.8, Troponin T High Sens 10 10/11/24 13:10: Troponin T Hi Sens 2 Hr 687 H* Imaging Radiology Impression Brain CT 10/11/24 11:40 IMPRESSION: No acute intracranial pathology. [facility] Cerv[facility] Spine CT 10/11/24 11:40 IMPRESSION: There is loss of the lordosis which can be secondary to position or spasm. There is grade 1 retrolisthesis at C4-5, 0.2 cm. There is loss of disc height from C4-7. There is no visible acute traumatic injury. Reading [facility] Chest X-Ray 10/11/24 11:40 IMPRESSION: No acute cardiopulmonary process. Thoracolumbar curvature of the spine to the right. Reading Location: [id number] Assessment & Plan Assessment/Plan (1) Fall down stairs: (2) Elevated troponin: PLAN: Plan Patient is an 84-year-old female who presented to [facility] ED on 10/11/2024 after a mechanical fall. 1. Elevated troponins with ST elevations on EKG and concern for recurrent Takotsubo cardiomyopathy;history of hypertension, hyperlipidemia and SVT ? Admit under observation status to PCU. Previously followed with [facility], last office visit in 2021. History of 3 episodes of Takotsubo cardiomyopathy in 2008, 2011 and 2019. Last episodein 2019 occurred here; cardiac cath in 07/2019 showed nonobstructive CAD, estimated EF 35%. Echo in showed recovered EF of 65%, no other concerning findings. Initial EKG inthe ED showed significant ST elevations in leads V3 through V6; repeat EKG 2 hours later with improvement in ischemic changes. Troponin trend 10 > 687. Chest x-ray unremarkable, no concern for volume overload. Patient with very mild chest pressure noted. Patient notably is refusing heart cath at this time. Cardiologyevaluated in the ED; per their recs, will obtain echo, trend troponin to peak and continue cardiac monitoring. Hypertensive to the 160s systolic in the ED. Will continue home low-dose Lopressor and add IV hydralazine as needed for SBP greater than 170 or now. Can consider initiating losartan but notably patient is hesitant to start any new medications, as she states she has had issues with many medications in the past. Last lipid panel in 2020 was borderline and patient preferred dietary changes; repeat lipid panelordered. Will hold on cardiology consult as I suspect outpatient follow-up willbe sufficient, but can consider consult as needed. 2. Mechanical fall ? Had mechanical fall at [employer] [facility] when she fell through a rotting wooden stair. Lives athome alone, reports good functional status at baseline. CT brain and cervical spine unremarkable. Small hematoma on posterior scalp andmild low back pain noted by patient. Will have PT and OT evaluate patient in the morning but anticipate she will be fine for discharge home. 3. Anxiety ? Per history. Has been on Ativan 0.25 mg daily as needed for many years. Notes that in the past, taking an extra dose of Ativan has helped to bring her blood pressures down during episodes of Takotsubo's cardiomyopathy. Given dose of p.o. Ativan 0.5 mg in the ED. Okay to continue home Ativan as needed with first dose available later this evening. DVT prophylaxis: Lovenox CODE STATUS: Full code, verified Expected disposition: Home, 1 to 2 days Total clinical time spent by myself addressing the patient's medical issues, reviewing all the data, and collaborating with patient's care team: 75 minutes. Charges/Coding Visit Charges Inpatient E&M: 43622 Init Hosp L3 10/11/24 1504 Cosigner Signature (if applicable): CC: Dr. Timothy Baird, DO; Dr. Cira Ku DO~ Signed [facility]08-19-2025 Discharge summary [facility] Medical Records Department [address] [place] [address] Emergency Department Summary 10/11/24 MR#: [id number] Acct: [id number] Name: BHARATI HILLIARD Rep #:[id number] : 1940 84 From: Zeyad Moe MD PCP: Dr. Cira Ku DO Status:RE G ER Location: ED HPI HPI - Fall History of Present Illness Chief Complaint: Fall Narrative Narrative: 84-year-old female past medical history of Takotsubo cardiomyopathy presents status post fall at the flower shop prior to arrival. She states that she fell down a few stairs and hit the back of her head. There was no loss of consciousness she denies any neck pain or chest pain. She states she felt w eak,and initially may have had numbness of both legs. Of note, she states that she has had Takotsubo 3 times prior to this. She has had previous heart catheterizations and they have never found any blockage. She states that the left ventricle usually swells and can cause her enzymes to elevate, butwith catheterization she has never had arterial occlusion. She complains mainly of alump on the back of her head, but denies any neck pain, or other injury. She does not take blood thinners. [facility] Medical History Hypothyroidism Elevated troponin Takotsubo cardiomyopathy History of left heart catheterization (08/10/19) Abrasion of knee, bilateral History of uterine cancer Cystadenoma History of supraventricular tachycardia History of coronary vasospasm History of non-ST elevation myocardial infarction (NSTEMI) History of uterine cancer Vitamin D deficiency Essential hypertension Personal history of colonic polyps Jamie's disease Cataract Elevated LFTs Anxiety and depression Psoriasis IBS (irritable bowel syndrome) Home Medications ?Medication ?Instructions ?Recorded ?Last Taken ?Type turmeric 100 mg-sae 150 1 cap PO 11/01/20 Unknown H istory mg-olive 50 mg-oreg 150 mg-capryl capsule ascorbic acid (vitamin C) 1,000 mg 1 g PO DAILY Unknown History tablet cholecalciferol (vitamin D3) 50 50 mcg PO DAILY Unknown History mcg (2,000 unit) capsule mecobalamin (vitamin B12) 1,000 1,000 mcg PO DAILY 01/13 Unknown History mcg chewable tablet lactobacillus combination no.9 4 4,000 mmu cells PO DA NATALIIA 04/12/21 Unknown History billion cell capsule (Adult 50 Plus Probiotic) selenium 200 mcg tablet 200 mcg PO DAILY 04/12/21 Un known History metoprolol tartrate 25 mg tablet 12.5 mg (1/2 x 25 mg) PO QHS #45 05/09/21 Unknown Rx tabs ascorbic acid 100 mg-elderberry 1 tab PO DAILY 2 Unknown History fruit 50 mg chewable tablet lorazepam 0.5 mg tablet 0.25 mg PO DAILY PRN anxiety 11/06/21 Unknown History vitamin B complex (Balanced B-50 1 tab PO DAILY Unknown History tablet) Allergy/AdvReac Type Severity Reaction Status Date / Time cortisone Allergy Severe Throat Verified 10/11/24 10:58 swelling nitrofurantoin (From Allergy Severe Irregular Verified 10/11/24 10:58 Macrobid) HB, vision changes, diaphoresis erythromycin base Allergy Intermediate Unknown Verified 10/11/24 10:58 meperidine (From Demerol) Allergy Intermediate Unknown Verified 10/11/24 10:58 cyanocobalamin (vitamin B12) Allergy Anaphylaxis Verified 10/11/24 10:58 Iodinated Contrast Media Allergy Rash Verified 10/11/24 10:58 (Iodinated Contrast Media - Oral and) Penicillins Allergy Rash Verified 10/11/24 10:58 Sulfa (Sulfonamide Allergy Rash Verified 10/11/24 10:58 Antibiotics) Family History Father , Age 90 Cancer prostate CAD (coronary artery disease) Pacemaker COPD (chronic obstructive pulmonary disease) Brother CAD (coronary artery disease) CABG x 5 Hypertension Heart disease Mother CAD (coronary artery disease) CABG Heart disease CVA (cerebral vascular accident) Cancer rectal Surgical History History of bilateral cataract extraction History of tonsillectomy History of benign breast tumor History of colonoscopy History of bilateral oophorectomy History of hysterectomy History of section History of appendectomy Social History Smoking Status: Never smoker alcohol intake: never substance use type: does not use caffeine: No what type of physical activity do you participate in: walking and weight training frequency: daily seatbelt use: always do you feel safe at home: Yes additional social history: - retired ROS ROS ED ROS Narrative Review of systems positive for occipital hematoma status post fall. Denies neckpain. No chest pain.No prodromal symptoms prior to fall. EXAM Physical Exam Narrative Exam Narrative: GCS 15. ABCs are intact. Inspection of the occiput does reveal mild tendernesswith noted hematoma but no crepitance. Neck soft and supple with full range of motion, no vertebral point tenderness or bony step-off. Cardiovascular examination regular rate and rhythm. Lungs are clear to auscultation deanna aterally. Abdomen is soft nontender with normoactive bowel sounds. Neurological examination nonfocal, nonlateralizing, awake, alert, able to give distinct history of Takotsubo. Const Vital Signs: 10/11/24 10:55 10/11/24 11:49 10/11/24 11:52 Temperature 97.9 F Temperature Source Oral Pulse Rate 67 Respiratory Rate 16 Respiratory Effort Normal Respiratory Depth Normal Respiratory Pattern Normal Blood Pressure 193/85 H Blood Pressure Mean 121 Pulse Ox 100 Oxygen Delivery Method Room Air Room Air 10/11/24 13:00 10/11/24 14:12 Temperature 98.1 F Temperature Source Pulse Rate 106 H 94 Respiratory Rate 23 H 18 Respiratory Effort Respiratory Depth Respiratory Pattern Blood Pressure 167/86 H 155/70 H Blood Pressure Mean 113 98 Pulse Ox 100 100 Oxygen Delivery Method MDM MDM MDM Narrative Medical decision making narrative: Initially, EKG had been obtained by RN. On my independent interpretation, she does have sinus tachycardia [address] elevation diffusely, but mainly anterolaterally. STEMI activation had been initiated. However, the patient is very insistent that she has had Takotsubo and this is what happens after she falls. She is not currently having chest pain. I did discuss the patient with Dr. Hdz with cardiology who is currently at the bedside with the patient. Sheis refusing cardiac catheterization. I will obtain CT of the brain and C- spine to help rule out acute intracranial hemorrhage versus cervical spine fracture. Cardiology did also suggest obtaining enzymes, and further workup as an inpatient. I reviewed the radiology report of the CT of the brain and the C-spine. There is no evidence of an acute intracranial hemorrhage or skull fracture. She has degenerative changes of the cervical spine on the CT report but no evidence of an acute fracture. Chest x-ray interpreted by myself independently in 1 view shows no acute process, no pneumonia or pneumothorax. I reviewed the radiology report which confirms my independent interpretation and comments on curvature ofthe thoracolumbar spine to the right. I reviewed her laboratory work and she has normal white count of 7.9, hemoglobinnormal at 14.7 withhematocrit 42.9, platelet count normal at 287. BMP shows sodium low at 132, but she has chronic hyponatremia with compared to prior laboratory work. Chloride 93. BUN of 18 and creatinine normal at 0.81. Glucose 112. She has slightly elevated anion gap of 17 which may be from her hyponatremia. Initial high-sensitivity troponin is 10 with repeat being elevated at 687. Patient states that Ativan usually helps with her history of Takotsubo. She was administered Ativan 0.5 mg orally. Given the rise in her cardiac enzymes, patient will be discussed with the hospitalist for admission tot PCU. She is in stable condition. History & Record Review Discussion w/independent historian: Patient and Family (Son-in-law) Lab Data Attestation: I reviewed the patient's lab results. Labs: Laboratory Results - last 24 hr 10/11/24 10/11/24 11:02 13:10 WBC 7.9 RBC 4.99 Hgb 14.7 Hct 42.9 MCV 86.0 MCH 29.5 MCHC 34.3 RDW Std Deviation 39.9 RDW Coeff of Lena 12.9 Plt Count 287 MPV 10.5 Immature Gran % (Auto) 0.300 Neut % (Auto) 53.8 Lymph % (Auto) 35.7 [place] % (Auto) 9.1 Eos % (Auto) 0.5 Baso % (Auto) 0.6 Absolute Neuts (auto) 4.3 Absolute Lymphs (auto) 2.82 Nucleated RBC % 0 Sodium 132 L Potassium 4.6 Chloride 93 L Carbon Dioxide 21.5 Anion Gap 17 H BUN 18 Creatinine 0.81 Estim Creat Clear Calc 37.97 L Est GFR (MDRD) Non-Af 72 BUN/Creatinine Ratio 22.8 H Glucose 112 H Calcium 9.8 Troponin T High Sens 10 Troponin T Hi Sens 2 Hr 687 H* Radiography Diagnostic Testing: Clinical Impression(s) from Imaging Studies Brain CT 10/11/24 11:40 IMPRESSION: No acute intracranial pathology. Reading Location: [facility] Cervical Spine CT 10/11/24 11:40 IMPRESSION: There is loss of the lordosis which can be secondary to position or spasm. There is grade 1 retrolisthesis at C4-5, 0.2 cm. There is loss of disc height from C4-7. There is no visible acute traumatic injury. Reading Location: [facility] Chest X-Ray 10/11/24 11:40 IMPRESSION: No acute cardiopulmonary process. Thoracolumbar curvature of the spine to the right. Reading Location: [facility] Management Discussion w/another healthcare provider: Hospitalist (Dr. Baird) Discharge Plan Dx/Rx/DC Orders Clinical Impression: Takotsubo cardiomyopathy, Elevated troponin, Fall down stairs, Closed head injury Disposition Disposition: Acute Care Hospital [facility] What to do if you have Problems For any increased pain, shortness of breath, bleeding, nausea or vomiting, chestpain, or any unexpected problems, contact your Primary Care Provider. Call [facility] ([phone]) or report tothe closest Emergency Room. Call 911 if necessary. 10/11/24 1415 Cosigner Signature (if applicable): CC: Dr. Cira Ku DO ~ Signed ADDENDUM by Dr. Zeyad Moe MD on 10/11/24 at 1416 Additionally, repeat EKG was obtained and interpreted by myself independently assinus tachycardia at [address] changes. Her ST elevation on the primary/first EKG has resolved. 10/11/24 1416 Cosigner Signature (if applicable): cc: Dr. Cira Ku DO ~* Signed [facility]08-19-2025 Consult note Author Nova Hdz [facility] Note Date/Time October 11, 2024 1: 16pm [facility] Medical Records Department [address] [place] [address] Consultation - Cardiology 10/11/24 1206 MR#: [id number] Acct: [id number] Name: BHARATI HILLIARD Rep #:[id number] : 1940 84 From: Nova Hdz MD PCP: Dr. Cira Ku DO Status:RE G ER Location: ED Assessment & Plan Assessment/Plan (1) Takotsubo cardiomyopathy: (2) History of supraventricular tachycardia: (3) Essential hypertension: (4) HLD (hyperlipidemia): QUALIFIERS: Hyperlipidemia type: moderate mixed hyperlipidemia notrequiring statin therapy Qualified Code(s): E78.2 - Mixed hyperlipidemia PLAN: Plan -continue to trend troponin to peak, however, after extended discussion with patient, if she does not have any cardiac causes for remaining in hospital, it is reasonable to discharge with outpatient followup -TTE to be done (inpatient or outpatient, pending clinical course) -if BP remains elevated, would start losartan 25mg daily -telemetry monitoring -recommend initiation of statin given DLD and ASCVD risk PT Evaluation Evaluation for neurologic deficit and/or intracranial bleed HPI Consult Data Date of Consult: 10/11/24 HPI Narrative HPI Narrative: BHARATI HILLIARD, is a 84 F past cardiovascular history which is included underlying Takotsubo syndrome (3 occurrences), SVT, and hypertension who presented to ED after a mechanical fall in which she hit her head. ECG with diffuse ST elevations, most prominent in anterior leads, and code STEMI called. Patient denies shortness of breath, chest pain, or other symptoms. States she knows this is her Takutsubo acting up, and does not wish to undergo cardiac catheterization. Discussed extensively with family and patient regarding her history, risks and benefits of proceeding with cath, as well as red flag symptoms. Patient states she stepped and her foot went through a rotting step on a wooden staircase, and that's what caused her to hit her head. No LOC, palpitations, dizziness, or other prodrome. [facility] Medical History Hypothyroidism Elevated troponin Takotsubo cardiomyopathy History of left heart catheterization (08/10/19) Abrasion of knee, bilateral History of uterine cancer Cystadenoma History of supraventricular tachycardia History of coronary vasospasm History of non-ST elevation myocardial infarction (NSTEMI) History of uterine cancer Vitamin D deficiency Essential hypertension Personal history of colonic polyps Jamie's disease Cataract Elevated LFTs Anxiety and depression Psoriasis IBS (irritable bowel syndrome) Home Medications ?Medication ?Instructions ?Recorded ?Last Taken ?Type turmeric 100 mg-sae 150 cap PO 11/01/20 Unknown His tory mg-olive 50 mg-oreg 150 mg-capryl capsule ascorbic acid (vitamin C) 1,000 mg 1 g PO DAILY Unknown History tablet cholecalciferol (vitamin D3) 50 50 mcg PO DAILY Unknown History mcg (2,000 unit) capsule mecobalamin (vitamin B12) 1,000 1,000 mcg PO DAILY 01/13 Unknown History mcg chewable tablet lactobacillus combination no.9 4 4,000 mmu cells PO DA NATALIIA 04/12/21 Unknown History billion cell capsule (Adult 50 Plus Probiotic) selenium 200 mcg tablet 200 mcg PO DAILY 04/12/21 Un known History metoprolol tartrate 25 mg tablet 12.5 mg (1/2 x 25 mg) PO QHS #45 05/09/21 Unknown Rx tabs ascorbic acid 100 mg-elderberry 1 tab PO DAILY 2 Unknown History fruit 50 mg chewable tablet lorazepam 0.5 mg tablet 0.25 mg PO DAILY PRN anxiety 11/06/21 Unknown History amlodipine 2.5 mg tablet 2.5 mg PO DAILY PRN Ordered by 07/03/22 Unknown History [place] for travel if BP goes up amoxicillin 250 mg capsule 500 mg (2 x 250 mg) PO BID #28 caps 01/05/23 Unknown Rx Allergy/AdvReac Type Severity Reaction Status Date / Time cortisone Allergy Severe Throat Verified 10/11/24 10:58 swelling nitrofurantoin (From Allergy Severe Irregular Verified 10/11/24 10:58 Macrobid) HB, vision changes, diaphoresis erythromycin base Allergy Intermediate Unknown Verified 10/11/24 10:58 meperidine (From Demerol) Allergy Intermediate Unknown Verified 10/11/24 10:58 cyanocobalamin (vitamin B12) Allergy Anaphylaxis Verified 10/11/24 10:58 Iodinated Contrast Media Allergy Rash Verified 10/11/24 10:58 (Iodinated Contrast Media - Oral and) Penicillins Allergy Rash Verified 10/11/24 10:58 Sulfa (Sulfonamide Allergy Rash Verified 10/11/24 10:58 Antibiotics) Family History Father , Age 90 Cancer prostate CAD (coronary artery disease) Pacemaker COPD (chronic obstructive pulmonary disease) Brother CAD (coronary artery disease) CABG x 5 Hypertension Heart disease Mother CAD (coronary artery disease) CABG Heart disease CVA (cerebral vascular accident) Cancer rectal Surgical History History of bilateral cataract extraction History of tonsillectomy History of benign breast tumor History of colonoscopy History of bilateral oophorectomy History of hysterectomy History of section History of appendectomy Social History Smoking Status: Never smoker alcohol intake: never substance use type: does not use caffeine: No what type of physical activity do you participate in: walking and weight training frequency: daily seatbelt use: always do you feel safe at home: Yes additional social history: - retired Physical Exam Const alert, oriented x3, no apparent distress and healthy appearing HEENT HEENT Narrative: palpable hematoma at back of skull. Eyes PERRL Chest inspection of chest normal Resp normal respiratory effort and clear to auscultation bilaterally Cardio regular rate and regular rhythm GI normal to inspection, nondistended, normoactive bowel sounds Extremity normal to inspection, full ROM, normal capillary refill, no clubbing, cyanosis or edema and no pedal edema Skin no rashes or lesions noted Psych mental status grossly normal, thought process normal, cooperative and affect normal Objective Data Vital Signs: Vital Signs Temp Pulse Resp BP Pulse Ox O2 Del Method 97.9 F 67 16 193/85 H 100 Room Air 10/11/24 10:55 10/11/24 10:55 10/11/24 10:55 10/11/24 10:55 10/11/24 10:55 10/11/24 11:49 Oxygen Delivery Method Room Air Weight: 100 lb 12.02 oz Body Mass Index (BMI) 18.4 Intake & Output: Intake and Output for Last 24 Hours 10/09/24 10/10/24 10/11/24 23:59 23:59 23:59 Intake Total 0 / 0 Balance 0 / 0 Lab / Micro Data 10/11/24 11:02 10/11/24 11:02 Labs: Laboratory Results - last 24 hr 10/11/24 11:02: WBC 7.9, RBC 4.99, Hgb 14.7, Hct 42.9, MCV 86.0, MCH 29.5, MCHC 34.3, RDW Std Deviation 39.9, RDW Coeff of Lena 12.9, Plt Count 287, MPV 10.5, Immature Gran % (Auto) 0.300, Neut % (Auto) 53.8, Lymph % (Auto) 35.7, [place] % (Auto) 9.1, Eos % (Auto) 0.5, Baso % (Auto) 0.6, Absolute Neuts (auto) 4.3, Absolute Lymphs (auto) 2.82, Nucleated RBC % 0 Cardiology Labs/Tests 10/11/24 11:02: WBC 7.9, RBC 4.99, Hgb 14.7, Hct 42.9, MCV 86.0, MCH 29.5, MCHC 34.3, Plt Count 287, MPV 10.5, Immature Gran % (Auto) 0.300, Neut % (Auto) 53.8,Lymph % (Auto) 35.7, [place] % (Auto) 9.1, Eos % (Auto) 0.5, Baso % (Auto) 0.6, Absolute Neuts (auto) 4.3, Nucleated RBC % 0 Rhythm: EKG: ECHO: Stress Test: Cardiac Cath: PCI: CT Surgery: Holter monitor: EPS: PPM: CXR: Chest CT Scan: ROSALINDA Risk Score for UA/STEMI Assesmment (YES = 1) Risk Stratification Applicable: No Age > or = 65: Yes > or = 3 CAD risk factors (HTN, Hypercholesterolemia, Diabetes, family hx, current smoker): Yes Known CAD (Stenosis > or = 50%): No ASA used in past 7 days: Yes Severe angina (> or = 2 episodes in 24 hrs): No EKG ST change > or = 0.5mm: Yes Positive cardiac markers: No Score ROSALINDA Risk Score of mortality/ recurrent ischemic event over the next 14 days: 4 = 19.9% - Intermediate 10/11/24 1316 <Electronically signed by Nova Hdz MD> Cosigner Signature (if applicable): CC: Dr. Nova Hdz MD; Dr. Cira Ku, DO~ Signed [facility] Work Phone: [phone] 702-881408-19-2025 Consult note [facility] Medical Records Department [address] [place] [address] Consultation - Cardiology 10/11/24 1206 MR#: [id number] Acct: [id number] Name: JULIANBHARATI TIERRA Rep #:[id number] : 1940 84 From: Nova Hdz MD PCP: Dr. Cira Ku, DO Status:RE G ER Location: ED Assessment & Plan Assessment/Plan (1) Takotsubo cardiomyopathy: (2) History of supraventricular tachycardia: (3) Essential hypertension: (4) HLD (hyperlipidemia): QUALIFIERS: Hyperlipidemia type: moderate mixed hyperlipidemia notrequiring statin therapy Qualified Code(s): E78.2 - Mixed hyperlipidemia PLAN: Plan -continue to trend troponin to peak, however, after extended discussion with patient, if she does not have any cardiac causes for remaining in hospital, it is reasonable to discharge with outpatient followup -TTE to be done (inpatient or outpatient, pending clinical course) -if BP remains elevated, would start losartan 25mg daily -telemetry monitoring -recommend initiation of statin given DLD and ASCVD risk PT Evaluation Evaluation for neurologic deficit and/or intracranial bleed HPI Consult Data Date of Consult: 10/11/24 HPI Narrative HPI Narrative: BHARATI HILLIARD, is a 84 F past cardiovascular history which is included underlying Takotsubo syndrome (3 occurrences), SVT, and hypertension who presented to ED after a mechanical fall in which she hit her head. ECG with diffuse ST elevations, most prominent in anterior leads, and code STEMI called. Patient denies shortness of breath, chest pain, or other symptoms. States she knows this is her Takutsubo acting up, and does not wish to undergo cardiac catheterization. Discussed extensively withfamily and patient regarding her history, risks and benefits of proceeding with cath, as well as red flag symptoms. Patient states she stepped and her foot went through a rotting step on a wooden staircase, and that's what caused her to hit her head. No LOC, palpitations, dizziness, or other prodrome. [facility] Medical History Hypothyroidism Elevated troponin Takotsubo cardiomyopathy History of left heart catheterization (08/10/19) Abrasion of knee, bilateral History of uterine cancer Cystadenoma History of supraventricular tachycardia History of coronary vasospasm History of non-ST elevation myocardial infarction (NSTEMI) History of uterine cancer Vitamin D deficiency Essential hypertension Personal history of colonic polyps Jamie's disease Cataract Elevated LFTs Anxiety and depression Psoriasis IBS (irritable bowel syndrome) Home Medications ?Medication ?Instructions ?Recorded ?Last Taken ?Type turmeric 100 mg-sae 150 cap PO 11/01/20 Unknown His tory mg-olive 50 mg-oreg 150 mg-capryl capsule ascorbic acid (vitamin C) 1,000 mg 1 g PO DAILY Unknown History tablet cholecalciferol (vitamin D3) 50 50 mcg PO DAILY Unknown History mcg (2,000 unit) capsule mecobalamin (vitamin B12) 1,000 1,000 mcg PO DAILY 01/13 Unknown History mcg chewable tablet lactobacillus combination no.9 4 4,000 mmu cells PO DA NATALIIA 04/12/21 Unknown History billion cell capsule (Adult 50 Plus Probiotic) selenium 200 mcg tablet 200 mcg PO DAILY 04/12/21 Un known History metoprolol tartrate 25 mg tablet 12.5 mg (1/2 x 25 mg) PO QHS #45 05/09/21 Unknown Rx tabs ascorbic acid 100 mg-elderberry 1 tab PO DAILY 2 Unknown History fruit 50 mg chewable tablet lorazepam 0.5 mg tablet 0.25 mg PO DAILY PRN anxiety 11/06/21 Unknown History amlodipine 2.5 mg tablet 2.5 mg PO DAILY PRN Ordered by 07/03/22 Unknown History [place] for travel if BP goes up amoxicillin 250 mg capsule 500 mg (2 x 250 mg) PO BID #28 caps 01/05/23 Unknown Rx Allergy/AdvReac Type Severity Reaction Status Date / Time cortisone Allergy Severe Throat Verified 10/11/24 10:58 swelling nitrofurantoin (From Allergy Severe Irregular Verified 10/11/24 10:58 Macrobid) HB, vision changes, diaphoresis erythromycin base Allergy Intermediate Unknown Verified 10/11/24 10:58 meperidine (From Demerol) Allergy Intermediate Unknown Verified 10/11/24 10:58 cyanocobalamin (vitamin B12) Allergy Anaphylaxis Verified 10/11/24 10:58 Iodinated Contrast Media Allergy Rash Verified 10/11/24 10:58 (Iodinated Contrast Media - Oral and) Penicillins Allergy Rash Verified 10/11/24 10:58 Sulfa (Sulfonamide Allergy Rash Verified 10/11/24 10:58 Antibiotics) Family History Father , Age 90 Cancer prostate CAD (coronary artery disease) Pacemaker COPD (chronic obstructive pulmonary disease) Brother CAD (coronary artery disease) CABG x 5 Hypertension Heart disease Mother CAD (coronary artery disease) CABG Heart disease CVA (cerebral vascular accident) Cancer rectal Surgical History History of bilateral cataract extraction History of tonsillectomy History of benign breast tumor History of colonoscopy History of bilateral oophorectomy History of hysterectomy History of section History of appendectomy Social History Smoking Status: Never smoker alcohol intake: never substance use type: does not use caffeine: No what type of physical activity do you participate in: walking and weight training frequency: daily seatbelt use: always do you feel safe at home: Yes additional social history: - retired Physical Exam Const alert, oriented x3, no apparent distress and healthy appearing HEENT HEENT Narrative: palpable hematoma at back of skull. Eyes PERRL Chest inspection of chest normal Resp normal respiratory effort and clear to auscultation bilaterally Cardio regular rate and regular rhythm GI normal to inspection, nondistended, normoactive bowel sounds Extremity normal to inspection, full ROM, normal capillary refill, no clubbing, cyanosis or edema and no pedal edema Skin no rashes or lesions noted Psych mental status grossly normal, thought process normal, cooperative and affect normal Objective Data Vital Signs: Vital Signs Temp Pulse Resp BP Pulse Ox O2 Del Method 97.9 F 67 16 193/85 H 100 Room Air 10/11/24 10:55 10/11/24 10:55 10/11/24 10:55 10/11/24 10:55 10/11/24 10:55 10/11/24 11:49 Oxygen Delivery Method Room Air Weight: 100 lb 12.02 oz Body Mass Index (BMI) 18.4 Intake & Output: Intake and Output for Last 24 Hours 10/09/24 10/10/24 10/11/24 23:59 23:59 23:59 Intake Total 0 / 0 Balance 0 / 0 Lab / Micro Data 10/11/24 11:02 10/11/24 11:02 Labs: Laboratory Results - last 24 hr 10/11/24 11:02: WBC 7.9, RBC 4.99, Hgb 14.7, Hct 42.9, MCV 86.0, MCH 29.5, MCHC 34.3, RDW Std Deviation 39.9, RDW Coeff of Lena 12.9, Plt Count 287, MPV 10.5, Immature Gran % (Auto) 0.300, Neut % (Auto) 53.8, Lymph % (Auto) 35.7, [place] % (Auto) 9.1, Eos % (Auto) 0.5, Baso % (Auto) 0.6, Absolute Neuts(auto) 4.3, Absolute Lymphs (auto) 2.82, Nucleated RBC % 0 Cardiology Labs/Tests 10/11/24 11:02: WBC 7.9, RBC 4.99, Hgb 14.7, Hct 42.9, MCV 86.0, MCH 29.5, MCHC 34.3, Plt Count 287, MPV 10.5, Immature Gran % (Auto) 0.300, Neut % (Auto) 53.8,Lymph % (Auto) 35.7, [place] % (Auto) 9.1,Eos % (Auto) 0.5, Baso % (Auto) 0.6, Absolute Neuts (auto) 4.3, Nucleated RBC % 0 Rhythm: EKG: ECHO: Stress Test: Cardiac Cath: PCI: CT Surgery: Holter monitor: EPS: PPM: CXR: Chest CT Scan: ROSALINDA Risk Score for UA/STEMI Assesmment (YES = 1) Risk Stratification Applicable: No Age > or = 65: Yes > or = 3 CAD risk factors (HTN, Hypercholesterolemia, Diabetes, family hx, current smoker): Yes Known CAD (Stenosis > or = 50%): No ASA used in past 7 days: Yes Severe angina (> or = 2 episodes in 24 hrs): No EKG ST change > or = 0.5mm: Yes Positive cardiac markers: No Score ROSALINDA Risk Score of mortality/ recurrent ischemic event over the next 14 days: 4 = 19.9% - Intermediate 10/11/24 1316 Cosigner Signature (if applicable): CC: Dr. Nova Hdz MD; Dr. Cira Ku DO~ Signed [facility]08-19-2025 Radiology Diagnostic study note [facility] Imaging Services [address] [place] [address] Spine Cervical without Contras MR#: [id number] Acct: [id number] Name: BHARATI HILLIARD Rep #: [id number] : 1940 F 84 From: Esteban Narvaez MD PCP: Dr. Cira Ku DO Status: RE G ER Study:Spine Cervical without Contras Date of Exam: 10/11/24 Exam# [id number] Ordering Dr: Zeyad Moe MD PROCEDURE: SPINE CERVICAL WITHOUT CONTRAS 10/11/2024 REASON FOR EXAM: TRAUMA TECHNIQUE: SPINE CERVICAL WITHOUT CONTRAS Coronal and Sagittal reconstruction series were provided. One or more dose reduction techniques were used (e.g., Automated exposure control, adjustment of the mA and/or kV according to patient size, use of iterative reconstruction technique. RADIATION DOSE SUMMARY: DLP: 997 mGycm COMPARISON: None FINDINGS: There is loss of the lordosis. There is grade 1 retrolisthesis at C4-5, 0.2 cm. There is loss of disc height from C4-7. Visualized skull base and craniocervical junction demonstrate no evidence of fracture or dislocation. There is no evidence of cervical spine fracture. No soft tissue abnormality is seen. Visualized portions of the lung apices demonstrate no evidence of pneumothorax. CT/Spine Cervical without Contras IMPRESSION: There is loss of the lordosis which can be secondary to position or spasm. There is grade 1 retrolisthesis at C4-5, 0.2 cm. There is loss of disc height from C4-7. There is no visible acute traumatic injury. Reading Location: [facility] CC: Dr. Zeyad Moe MD; Dr. Cira Ku DO ~ Salvage Repairer: Signed [facility]08-19-2025 Radiology Diagnostic study note [facility] Imaging Services [address] [place] [address] Chest 1 View (Portable) MR#: [id number] Acct: [id number] Name: BHARATI HILLIARD Rep #: [id number] : 1940 F 84 From: Nitza Avendaño MD PCP: Dr. Cira Ku, Status: RE G ER Study:Chest 1 View (Portable) Date of Exam: 10/11/24 Exam# [id number] Ordering Dr: Zeyad Moe MD PROCEDURE: CHEST 1 VIEW (PORTABLE) 10/11/2024 REASON FOR EXAM: CHEST PAIN TECHNIQUE: Frontal view of the chest. COMPARISON: October 27, 2020 FINDINGS: Hardware: EKG leads are present Heart: Mildly enlarged. Lungs: Clear. Bones: Curvature thoracolumbar spine to the right. Mild degenerative changes. RAD/Chest 1 View (Portable) IMPRESSION: No acute cardiopulmonary process. Thoracolumbar curvature of the spine to the right. Reading Location: [facility] CC: Dr. Zeyad Moe MD; Dr. Cira Ku DO ~ Salvage Repairer: Signed [facility]08-19-2025 Radiology Diagnostic study note [facility] Imaging Services [address] [place] [address] Brain/Head without Contrast MR#: [id number] Acct: [id number] Name: BHARATI HILLIARD Rep #: [id number] : 1940 F 84 From: Esteban Narvaez MD PCP: Dr. Cira Ku DO Status: RE G ER Study:Brain/Head without Contrast Date of Exa m: 10/11/24 Exam# [id number] Ordering Dr: Zeyad Moe MD EXAM: NONCONTRAST CT SCAN OF THE HEAD CLINICAL HISTORY: Trauma COMPARISON: None TECHNIQUE: Serial axial series through the head were obtained without contrast. 2-D coronaland sagittal reformats were then obtained. FINDINGS: Brain: There is no acute large territorial infarct, intracranial hemorrhage, midline shift or mass effect. There are atherosclerotic vascular calcifications involving the bilateral carotid siphons.The sella and pineal gland regions appear unremarkable. There is no evidence of cerebellar tonsillar herniation. Ventricles: There is no acute hydrocephalus. Basilar cisterns are patent. Paranasal sinuses: Well-aerated Mastoid air cells: Well-aerated. Calvarium: The bony calvarium is intact. Orbits: The bilateral globes are symmetric, without retrobulbar compressive masslesion or hemorrhage. CT/Brain/Head without Contrast IMPRESSION: No acute intracranial pathology. Reading Location: [facility] CC: Dr. Zeyad Moe MD; Dr. Cira Ku, DO ~ Salvage Repairer: Signed [facility]05-15-2025 Telephone encounter Note* Telephone Encounter - Ermelinda Montilla RN - 07/07/2024 10:14 AM EDT Patient called and given below message and instructions. Patient verbalizes understanding and denies questions at this time. Patient instructed to call and notify us if HR decreases below 40 or if fatigue continues. Ermelinda Montilla RN [facility]05-15-2025 Miscellaneous Notes* Telephone Encounter - Ermelnida Montilla RN - 07/07/2024 10:14 AM EDT Patient called and given below message and instructions. Patient verbalizes understanding and denies questions at this time. Patient instructed to call and notify us if HR decreases below 40 or if fatigue continues. Ermelinda Montilla RN * Telephone Encounter - Ermelidna Montilla RN - 07/07/2024 10:13 AM EDT I agree your vital signs look appropriate. If your heart rate is in the 50s and 60s had some perfect for low-dose beta-kadi therapy. She should continue the metoprolol 12.5 mg 2 times per day. If her heart rate is less than 40 bpm then we would consider making a medication adjustment. However, given her history of Takotsubo cardiomyopathy she needs to be on low-dose beta-kadi therapy at minimum at least once a day. Ike Curiel * Telephone Encounter - Ermelinda Montlila RN - 07/06/2024 2:56 PM EDT Called patient for update. Patient states that she held her metoprolol starting Thursday due to feeling increased fatigue with aHR of 57. She took the metoprolol again on Thursday and has not taken it since. Patient states that vital have been running 124/62 HR 64 138/57 HR 66 Patient states that she took the metoprolol again because she noted that her HR started to increasewith activity. From 80s to 90s Patient reassured that vitals are WNL and not a concern on their own. Patient states that she is more concerned about the increased fatigue and asking for instructions regarding how she should take the metoprolol. Patient states that she spoke with her PCP and they suggested that she may be able todecreased her dose to every other day. Patient currently ordered 12.5mg Daily. Patient continued to state that she is concerned that she had not heard anything back with her complaint and she has had 3 heart attacks. Please review and advise Ermelinda Montilla RN * Telephone Encounter - Heidy Ramirez LPN - 07/04/2024 4:42 PM EDT Patient called. Verified name and date of . Patient states she has not taken metoprolol tartrate since Thursday night. States her pulse has been running 57-60 through the weekend and had noticed because of feeling more weak. She does report that her equipment is older and she plans to get new however the pulse has been consistently low with both equipment. Patient verbalizes being upset that it has been all day without hearing back from provider and voices displeasure that provider has not returned her call. Aware of staff in clinic and goal is 72 hour turnaround time and aware if she has emergency she is welcome to use emergency room. Patient again states it is unprofessional not to have more immediate return calls. Heidy Ramirez LPN * Telephone Encounter - Danika Srivastava - 07/04/2024 8:18 AM EDT Patient is having a low pulse at times and wants to discuss her current meds. Please return call topatient as we could not find her a sooner appt. [facility] Telephone encounter Note * Telephone Encounter - Ermelinda Montilla RN - 07/07/2024 10:13 AM EDT I agree your vital signs look appropriate. If your heart rate is in the 50s and 60s had some perfect for low-dose beta-kadi therapy. She should continue the metoprolol 12.5 mg 2 times per day. If her heart rate is less than 40 bpm then we would consider making a medication adjustment. However, given her history of Takotsubo cardiomyopathy she needs to be on low-dose beta-kadi therapy at minimum at least once a day. Ike Curiel [facility]05-14-2025 Telephone encounter Note* Telephone Encounter - Ermelinda Montilla RN - 07/06/2024 2:56 PM EDT Called patient for update. Patient states that she held her metoprolol starting Thursday due to feeling increased fatigue with aHR of 57. She took the metoprolol again on Thursday and has not taken it since. Patient states that vital have been running 124/62 HR 64 138/57 HR 66 Patient states that she took the metoprolol again because she noted that her HR started to increasewith activity. From 80s to 90s Patient reassured that vitals are WNL and not a concern on their own. Patient states that she is more concerned about the increased fatigue and asking for instructions regarding how she should take the metoprolol. Patient states that she spoke with her PCP and they suggested that she may be able todecreased her dose to every other day. Patient currently ordered 12.5mg Daily. Patient continued to state that she is concerned that she had not heard anything back with her complaint and she has had 3 heart attacks. Please review and advise Ermelinda Montilla, RN [facility]05-12-2025 Telephone encounter Note* Telephone Encounter - Heidy Ramirez LPN - 07/04/2024 4:42 PM EDT Patient called. Verified name and date of . Patient states she has not taken metoprolol tartrate since Thursday night. States her pulse has been running 57-60 through the weekend and had noticed because of feeling more weak. She does report that her equipment is older and she plans to get new however the pulse has been consistently low with both equipment. Patient verbalizes being upset that it has been all day without hearing back from provider and voices displeasure that provider has not returned her call. Aware of staff in clinic and goal is 72 hour turnaround time and aware if she has emergency she is welcome to use emergency room. Patient again states it is unprofessional not to have more immediate return calls. Heidy Ramirez LPN [facility]05-12-2025 Telephone encounter Note* Telephone Encounter - Danika Srivastava - 07/04/2024 8:18 AM EDT Patient is having a low pulse at times and wants to discuss her current meds. Please return call topatient as we could not find her a sooner appt. [facility]11-18-2024 History of Present illness Narrative* Lissette Curiel MD - 01/11/2024 11:00 AM EST Images from the original note were not included. [facility] SE[facility]IONAL CARDIOLOGY Cardiology ([facility]) [address] [facility] [id number] OUTPATIENT VISIT DATE 01/11/2024 PRIMARY CARE PHYSICIAN: Cira Ku DO ([facility]) [address] [place] [address] HISTORY OF PRESENT ILLNESS: Ms. Hilliard is a 82 year old woman with a history of Takotsubo cardiomyopathy and labile hypertension presents for routine follow-up. Patient continues to do extremely well from a functional standpoint. She goes to the gym 3 to 4 days a week. She has not had issues with her blood pressure since her last visit. She had 1 episode where diastolics are elevated which she thinks may be secondary to asupplement that she had used. She has not had symptoms of chest pain, chest pressure, palpitations,lightheadedness, dizziness, or syncope. PAST MEDICAL HISTORY Diagnosis Date Anxiety state, unspecified Coronary artery disease Diarrhea Diffuse cystic mastopathy fibercystic beast disease Endometrial cancer (HCC) 04/30/2016 Heart attack ([facility]) 11/16/2020 Hypertension Hypothyroidism Irritable bowel syndrome Loss of weight Other psoriasis PMH - PAST MEDICAL HISTORY OF vitamin B12 deficiency PMH - PAST MEDICAL HISTORY OF 07/2007 right ovarian cyst removed, benign PMH - PAST MEDICAL HISTORY OF 08/2004 heart problems, [place] Solitary cyst of breast SVT (supraventricular tachycardia) ([facility]) 08/08/2010 Unspecified cataract x2 Unspecified congenital anomaly of heart mvp PAST SURGICAL HISTORY Procedure Laterality Date APPENDECTOMY 07/25/2007 DELIVERY ONLY 02/24/1976 , low transverse COLONOSCOPY FLX DX W/COLLJ SPEC WHEN PFRMD Colonoscopy x 2 COLONOSCOPY FLX DX W/COLLJ SPEC WHEN PFRMD 09/14/2012 Colonoscopy PAST SURGICAL HISTORY OF cyst frm breast left, benign PAST SURGICAL HISTORY OF 07/25/2007 oophorectomy bilateral REMV CATARACT EXTRACAP,INSERT LENS Bilateral 04/23 and 05/07 SOCIAL HISTORY Social History Tobacco Use Smoking status: Never Smokeless tobacco: Never Vaping Use Vaping status: Never Used Substance Use Topics Alcohol use: No Drug use: No FAMILY HISTORY Problem Relation Age of Onset Colon Cancer Mother chemo and radiation Coronary Artery Disease Mother Hypertension Mother Prostate Cancer Father Coronary Artery Disease Father age 90 of lung disease Coronary Artery Disease Brother asthma other (crohns disease) Daughter ALLERGIES: ALLERGIES Allergen Reactions Cobex Other: See Comments Face and tongue swelled Demerol [Meperidine* Other: See Comments sensitive to this Erthromycin [Erythr* Intolerance irritable bowel, nausea Iodinated Contrast * Rash Macrobid [Nitrofura* Other: See Comments irregular HR, black spots in eyes, and diaphoresis Penicillins Rash No reaction to amoxacillin. Steroids [Corticost* Shortness of Breath, Other: See Comments Throat closed up with cortisone cream Sulfa (Sulfonamide * Rash MEDICATIONS: nitroglycerin sublingual (NITROQUICK) 0.4 mg SL tablet Dissolve 1 tablet under the tongue as needed. For Chest Pain. If No Relief CALL 911 LORazepam (ATIVAN) 0.5 mg Take 0.5 mg by mouth once daily as needed. metoprolol tartrate, short acting, (LOPRESSOR) 25 mg tablet Take 0.5 tablets by mouth twice daily. For rapid heart rates selenium 200 mcg tab Take 1 tablet by mouth once daily. ascorbic acid, vitamin C, (VITAMIN C) 500 mg tablet Take 500 mg by mouth once daily. Cholecalciferol, Vitamin D3, (VITAMIN D) 1,000 unit tab Take 1,000 Units by mouth once daily. CYANOCOBALAMIN, VITAMIN B-12, (VITAMIN B-12 ORAL) Take by mouth. LACTOBACILLUS COMBO NO.6 (PROBIOTIC COMPLEX ORAL) Take by mouth once daily. Pre Probiotic daily MEDICATION, NON-DATABASE reishi once per day REVIEW OF SYSTEMS: Review of Systems Constitutional: Negative for chills, fever, malaise/fatigue and weight loss. HENT: Negative for hearing loss and sore throat. Eyes: Negative for blurred vision and double vision. Respiratory: Negative. Cardiovascular: Negative. Gastrointestinal: Negative. Genitourinary: Negative for dysuria, frequency, hematuria and urgency. Musculoskeletal: Negative. Skin: Negative. Neurological: Negative for dizziness, seizures, loss of consciousness, weakness and headaches. Endo/Heme/Allergies: Negative for environmental allergies. Does not bruise/bleed easily. Psychiatric/Behavioral: Negative for depression. PHYSICAL EXAMINATION: BP 128/74 (BP Site: Left Arm, BP Position: Sitting) Pulse 85 Wt 46.7 kg (103 lb) SpO2 100% BMI 18.84 kg/m General: Thin elderly woman sitting appears comfortable somewhat anxious but no apparent distress. She is alert and oriented x3 HEENT: Carotid upstrokes are brisk bilateral without bruits. No JVD appreciated. Pulmonary: Lungs are clear no rales, wheezes, rhonchi Cardiovascular: Normal S1-S2 with regular rate and rhythm. No murmurs, rubs, or gallops Extremities: Warm, well-perfused. No lower extremity edema. Dorsalis pedis and posterior tibial pulses are 2+ and symmetric. CARDIOVASCULAR MEDICINE TESTING: Cardiac catheterization 08/13/2019: Ventrciulogram: Ejection fraction 35% with severe hypo to akinesis of the mid LV with normal contraction of the apex and base of the left ventricle consistent with apical sparing Takasubo cardiomyopathy Left main: Mild luminal irregularities Left anterior descending: Mild luminal irregularities Left circumflex: Mild luminal irregularities Right coronary artery mild luminal irregularities Echocardiogram 11/14/2019 Left ventricle: Normal size and normal systolic function and estimated ejection fraction 65%. Intermediate diastolic function. No regional wall motion abnormalities. Mitral valve: Diffuse thickening of the anterior leaflet. Mild mitral valve prolapse with mild mitral valve insufficiency. Mild tricuspid valve insufficiency Mild diffuse aortic valve thickening trileaflet aortic valve Holter monitor 12/02/2011 IMPRESSIONS AND FINDINGS: This is a 48 hour recording The predominant rhythm is sinus Maximum heart rate of 121 occurs at 16:08 secondary to sinus tachycardia. Minimum heart rate of 45 occurs at 02:00 secondary to sinus bradycardia with normal TX interval 259 PACs are detected representing less than 1% of total beats 2086 ventricular ectopic beats are detected representing 1% of total beats. 7 ventricular couplets are detected At 06:21 3 PACs in a row are noted 2% beats occur at a heart rate of greater than 100 No atrial fibrillation, supraventricular tachycardia, complex ventricular ectopy, or pauses are seen The patient submits a detailed diary of activity but reports no symptoms Conclusion: Rare single PACs with 1 instance in which 3 PACs in a row occur Rare single ventricular ectopic beats with very rare couplets No symptoms are reported IMPRESSION: Ms. Hilliard is a 83 year old woman who has a history of Takotsubo cardiomyopathy diagnosed in 2004with recurrence in 2019 and 2020. She also has a history of labile hypertension which is likely related to underlying anxiety. She presents the office for routine follow-up PLAN AND RECOMMENDATIONS: 1. Takotsubo cardiomyopathy - ICD9: 429.83, ICD10: I51.81 (primary diagnosis) Patient has had 3 separate events most recently 2020. She has had no symptomatic recurrence. She can only tolerate very low-dose beta-kadi therapy at bedtime. 2. Labile hypertension - ICD9: 401.9, ICD10: R09.89 Adequately controlled with low-dose beta-kadi therapy 3. Coronary vasospasm (HCC) - ICD9: 413.1, ICD10: I20.1 Lissette Curiel MD documented in this encounter[facility] NoteHNO ID: [id number] Author: LISSETTE CURIEL MD Service: ? Author Type: Physician Type: Progress Notes Filed: 01/11/2024 12:16 Note Text: [facility]AL CARDIOLOGY Cardiology ([facility]) [address] [address] OUTPATIENT VISIT DATE 01/11/2024 PRIMARY CARE PHYSICIAN: Cira Ku DO ([facility]) [address] [place] [address] HISTORY OF PRESENT ILLNESS: Ms. Hilliard is a 82 year old woman with a history of Takotsubo cardiomyopathy and labile hypertension presents for routine follow-up. Patient continues to do extremely well from a functional standpoint. She goes to the gym 3 to 4 days a week. She has not had issues with her blood pressure since her last visit. She had 1 episode where diastolics are elevated which she thinks may be secondary to a supplement that she had used. She has not had symptoms of chest pain, chest pressure, palpitations, lightheadedness, dizziness, or syncope. PAST MEDICAL HISTORY Diagnosis Date Anxiety state, unspecified Coronary artery disease Diarrhea Diffuse cystic mastopathy fibercystic beast disease Endometrial cancer (HCC) 04/30/2016 Heart attack (HCC) 11/16/2020 Hypertension Hypothyroidism Irritable bowel syndrome Loss of weight Other psoriasis PMH - PAST MEDICAL HISTORY OF vitamin B12 deficiency PMH - PAST MEDICAL HISTORY OF 07/2007 right ovarian cyst removed, benign PMH - PAST MEDICAL HISTORY OF 08/2004 heart problems, [place] Solitary cyst of breast SVT (supraventricular tachycardia) (HCC) 08/08/2010 Unspecified cataract x2 Unspecified congenital anomaly of heart mvp PAST SURGICAL HISTORY Procedure Laterality Date APPENDECTOMY 07/25/2007 DELIVERY ONLY 02/24/1976 , low transverse COLONOSCOPY FLX DX W/COLLJ SPEC WHEN PFRMD Colonoscopy x 2 COLONOSCOPY FLX DX W/COLLJ SPEC WHEN PFRMD 09/14/2012 Colonoscopy PAST SURGICAL HISTORY OF cyst frm breast left, benign PAST SURGICAL HISTORY OF 07/25/2007 oophorectomy bilateral REMV CATARACT EXTRACAP,INSERT LENS Bilateral 04/23 and 05/07 SOCIAL HISTORY Social History Tobacco Use Smoking status: Never Smokeless tobacco: Never Vaping Use Vaping status: Never Used Substance Use Topics Alcohol use: No Drug use: No FAMILY HISTORY Problem Relation Age of Onset Colon Cancer Mother chemo and radiation Coronary Artery Disease Mother Hypertension Mother Prostate Cancer Father Coronary Artery Disease Father age 90 of lung disease Coronary Artery Disease Brother asthma other (crohns disease) Daughter ALLERGIES: ALLERGIES Allergen Reactions Cobex Other: See Comments Face and tongue swelled Demerol [Meperidine* Other: See Comments sensitive to this Erthromycin [Erythr* Intolerance irritable bowel, nausea Iodinated Contrast * Rash Macrobid [Nitrofura* Other: See Comments irregular HR, black spots in eyes, and diaphoresis Penicillins Rash No reaction to amoxacillin. Steroids [Corticost* Shortness of Breath, Other: See Comments Throat closed up with cortisone cream Sulfa (Sulfonamide * Rash MEDICATIONS: nitroglycerin sublingual (NITROQUICK) 0.4 mg SL tablet Dissolve 1 tablet under the tongue as needed. For Chest Pain. If No Relief CALL 911 LORazepam (ATIVAN) 0.5 mg Take 0.5 mg by mouth once daily as needed. metoprolol tartrate, short acting, (LOPRESSOR) 25 mg tablet Take 0.5 tablets by mouth twice daily. For rapid heart rates selenium 200 mcg tab Take 1 tablet by mouth once daily. ascorbic acid, vitamin C, (VITAMIN C) 500 mg tablet Take 500 mg by mouth once daily. Cholecalciferol, Vitamin D3, (VITAMIN D) 1,000 unit tab Take 1,000 Units by mouth once daily. CYANOCOBALAMIN, VITAMIN B-12, (VITAMIN B-12 ORAL) Take by mouth. LACTOBACILLUS COMBO NO.6 (PROBIOTIC COMPLEX ORAL) Take by mouth once daily. Pre Probiotic daily MEDICATION, NON-DATABASE reishi once per day REVIEW OF SYSTEMS: Review of Systems Constitutional: Negative for chills, fever, malaise/fatigue and weight loss. HENT: Negative for hearing loss and sore throat. Eyes: Negative for blurred vision and double vision. Respiratory: Negative. Cardiovascular: Negative. Gastrointestinal: Negative. Genitourinary: Negative for dysuria, frequency, hematuria and urgency. Musculoskeletal: Negative. Skin: Negative. Neurological: Negative for dizziness, seizures, loss of consciousness, weakness and headaches. Endo/Heme/Allergies: Negative for environmental allergies. Does not bruise/bleed easily. Psychiatric/Behavioral: Negative for depression. PHYSICAL EXAMINATION: BP 128/74 (BP Site: Left Arm, BP Position: Sitting) Pulse 85 Wt 46.7 kg (103 lb) SpO2 100% BMI 18.84 kg/m? General: Thin elderly woman sitting appears comfortable somewhat anxious but no apparent distress. She is alert a (more content not included)...[facility]06-13-2024 History of Present illness Narrative* Tamiko Graf MD - 08/06/2023 8:54 AM EDT Equip Tech offered: Patient declines. Calabrese is a 83 year old who presents for an annual gynecologic exam with complaints, two episodes of brown spotting over the last 3 months . H/o stage 1 endometrioid type endometrial adenocarcinoma. S/p TLH [place] [address] Larson. Here today for a pelvic exam. Urge incontinence. Postmenopausal: Yes HRT use: No. Last Pap: 05/30/2021 normal HPV: 05/07/2010 negative History of abnormal pap: No Last mammogram: patient reports she completes mammograms [facility] Sexually active: No OB History T1 L1 SAB1 IAB0 Ectopic0 Multiple0 Live Births0 [employer] History LMP: Hysterectomy Age at Menarche: Age at First : Age at Menopause: [employer] History Comments: Sexual Activity: Not Currently; No partner data on record Contraception: Surgical PAST MEDICAL HISTORY Diagnosis Date Anxiety state, unspecified Coronary artery disease Diarrhea Diffuse cystic mastopathy fibercystic beast disease Endometrial cancer (HCC) 04/30/2016 Heart attack (HCC) 11/16/2020 Hypertension Hypothyroidism Irritable bowel syndrome Loss of weight Other psoriasis PMH - PAST MEDICAL HISTORY OF vitamin B12 deficiency PMH - PAST MEDICAL HISTORY OF 07/2007 right ovarian cyst removed, benign PMH - PAST MEDICAL HISTORY OF 08/2004 heart problems, [place] Solitary cyst of breast SVT (supraventricular tachycardia) (HCC) 08/08/2010 Unspecified cataract x2 Unspecified congenital anomaly of heart mvp PAST SURGICAL HISTORY Procedure Laterality Date APPENDECTOMY 07/25/2007 DELIVERY ONLY 02/24/1976 , low transverse COLONOSCOPY FLX DX W/COLLJ SPEC WHEN PFRMD Colonoscopy x 2 COLONOSCOPY FLX DX W/COLLJ SPEC WHEN PFRMD 09/14/2012 Colonoscopy PAST SURGICAL HISTORY OF cyst frm breast left, benign PAST SURGICAL HISTORY OF 07/25/2007 oophorectomy bilateral REMV CATARACT EXTRACAP,INSERT LENS Bilateral 04/23 and 05/07 FAMILY HISTORY Problem Relation Age of Onset Colon Cancer Mother chemo and radiation Coronary Artery Disease Mother Hypertension Mother Prostate Cancer Father Coronary Artery Disease Father age 90 of lung disease Coronary Artery Disease Brother asthma other (crohns disease) Daughter SOCIAL HISTORY Social History Tobacco Use Smoking status: Never Smokeless tobacco: Never Vaping Use Vaping Use: Never used Substance Use Topics Alcohol use: No Drug use: No REVIEW OF SYSTEMS Abdomen: No abdominal pain, nausea, vomiting, diarrhea, or constipation. No bloating, early satiety, indigestion, or increased flatulence. Bladder: +Urge incontinence. No dysuria, gross hematuria, urinary frequency, urinary urgency Breast: No breast lumps, nipple d/c, overlying skin changes, redness or skin retraction Allergies and current medication updated:Yes EXAM: BP 126/70 Ht 5' 2 (1.58m) Wt 98 lb 12.8 oz (44.8kg) BMI 18.07 kg/(m^2). GENERAL: pleasant, female in no apparent distress HEENT: Normocephalic and atraumatic NECK: full range of motion CHEST: Normal inspiratory effort BREAST: No masses, tenderness, skin or nipple changes bilaterally. No lymphadenopathy palpated ABDOMEN: soft, non-tender, and no masses PELVIC: external genitalia aytophic, normal Bartholin's glands, urethra, [place]'s glands, no vulvar lesions, good vaginal support, normal appearing perineal body and perianal region, vagina atrophic, vaginal cuff intact without masses or lesions BIMANUAL: no adnexal masses, non-tender, and vaginal cuff palpates smooth NEURO: exam grossly non-focal EXTREMITIES: normal ASSESSMENT/PLAN: 1) Health maintenance: Pap/HPV screening no longer needed. Mammogram followed by PCP completes at [facility]. Nutrition, exercise and routine health maintenance exams reviewed. Colon cancer screening: followed by PCP. TSH/lipids/glucose: followed by PCP. H/o endometrial cancer: No evidence of recurrence on exam today. Discussed episodes of staining could be from atrophy. Discussed messaging [facility] for another opinion, and to see if imaging is indicated. Patient declines opinion from [facility] at this time, as she states she would not want to proceed with imaging currently given she has had this spotting since surgery and normal exam. Shewill call with new symptoms or a change in bleeding. Continue yearly pelvic exams. 2) Follow up one year or sooner as needed Tamiko Graf DO documented in this encounterPark[facility] History of Present illness Narrative* Lissette Curiel MD - 01/12/2023 2:20 PM EST Images from the original note were not included. [facility] SECTION OF REGIONAL CARDIOLOGY Cardiology ([facility]) [address] [address] OUTPATIENT VISIT DATE 01/12/2023 PRIMARY CARE PHYSICIAN: Cira Ku DO ([facility]) [address] [place] [address] HISTORY OF PRESENT ILLNESS: Ms. Hilliard is a 82 year old woman with a history of Takotsubo cardiomyopathy and labile hypertension presents for routine follow-up. Patient admits to having feelings of anxiety which often causes her blood pressure markedly elevated. She will take half an Ativan pill which usually helps when herblood pressure is spiking. She is concerned about low diastolic blood pressures. She has not had symptoms of lightheadedness or dizziness. Her functional capacity remains adequate. Her last episode of Takotsubo cardiomyopathy occurred in 2020. She has not had symptoms concerning for CHF including PND, orthopnea, or lower extremity edema. PAST MEDICAL HISTORY Diagnosis Date Anxiety state, unspecified Coronary artery disease Diarrhea Diffuse cystic mastopathy fibercystic beast disease Endometrial cancer (HCC) 04/30/2016 Heart attack (HCC) 11/16/2020 Hypertension Hypothyroidism Irritable bowel syndrome Loss of weight Other psoriasis PMH - PAST MEDICAL HISTORY OF vitamin B12 deficiency PMH - PAST MEDICAL HISTORY OF 07/2007 right ovarian cyst removed, benign PMH - PAST MEDICAL HISTORY OF 08/2004 heart problems, [place] Solitary cyst of breast SVT (supraventricular tachycardia) 08/08/2010 Unspecified cataract x2 Unspecified congenital anomaly of heart mvp PAST SURGICAL HISTORY Procedure Laterality Date APPENDECTOMY 07/25/2007 DELIVERY ONLY 02/24/1976 , low transverse COLONOSCOPY FLX DX W/COLLJ SPEC WHEN PFRMD Colonoscopy x 2 COLONOSCOPY FLX DX W/COLLJ SPEC WHEN PFRMD 09/14/2012 Colonoscopy PAST SURGICAL HISTORY OF cyst frm breast left, benign PAST SURGICAL HISTORY OF 07/25/2007 oophorectomy bilateral REMV CATARACT EXTRACAP,INSERT LENS Bilateral 04/23 and 05/07 SOCIAL HISTORY Social History Tobacco Use Smoking status: Never Smokeless tobacco: Never Substance Use Topics Alcohol use: No Drug use: No FAMILY HISTORY Problem Relation Age of Onset Colon Cancer Mother chemo and radiation Coronary Artery Disease Mother Hypertension Mother Prostate Cancer Father Coronary Artery Disease Father age 90 of lung disease Coronary Artery Disease Brother asthma other (crohns disease) Daughter ALLERGIES: ALLERGIES Allergen Reactions Cobex Other: See Comments Face and tongue swelled Demerol [Meperidine* Other: See Comments sensitive to this Erthromycin [Erythr* Intolerance irritable bowel, nausea Iodinated Contrast * Rash Macrobid [Nitrofura* Other: See Comments irregular HR, black spots in eyes, and diaphoresis Penicillins Rash No reaction to amoxacillin. Steroids [Corticost* Shortness of Breath, Other: See Comments Throat closed up with cortisone cream Sulfa (Sulfonamide * Rash MEDICATIONS: MEDICATION, NON-DATABASE ashwagonda 500 mg once per day MEDICATION, NON-DATABASE reishi once per day LORazepam (ATIVAN) 0.5 mg Take 0.5 mg by mouth once daily as needed. metoprolol tartrate, short acting, (LOPRESSOR) 25 mg tablet Take 0.5 tablets by mouth twice daily. For rapid heart rates Cholecalciferol, Vitamin D3, (VITAMIN D) 1,000 unit tab Take 1,000 Units by mouth once daily. CYANOCOBALAMIN, VITAMIN B-12, (VITAMIN B-12 ORAL) Take by mouth. LACTOBACILLUS COMBO NO.6 (PROBIOTIC COMPLEX ORAL) Take by mouth once daily. Pre Probiotic daily nitroglycerin sublingual (NITROQUICK) 0.4 mg SL tablet Dissolve 1 tablet under the tongue as needed. For Chest Pain. If No Relief CALL 911 VITAMIN E ORAL Take by mouth. (Patient not taking: Reported on 09/10/2020 ) selenium 200 mcg tab Take 1 tablet by mouth once daily. ascorbic acid, vitamin C, (VITAMIN C) 500 mg tablet Take 500 mg by mouth once daily. BIOTIN ORAL Take 1 tablet by mouth every other day. (Patient not taking: Reported on 01/12/2023) REVIEW OF SYSTEMS: ROS PHYSICAL EXAMINATION: BP 129/74 (BP Site: Left Arm, BP Position: Sitting, BP Cuff Size: Regular Adult) Pulse 90 Wt 46.4 kg (102 lb 6.4 oz) SpO2 97% BMI 18.73 kg/m General: Thin elderly woman sitting appears comfortable somewhat anxious but no apparent distress. She is alert and oriented x3 HEENT: Carotid upstrokes are brisk bilateral without bruits. No JVD appreciated. Pulmonary: Lungs are clear no rales, wheezes, rhonchi Cardiovascular: Normal S1-S2 with regular rate and rhythm. No murmurs, rubs, or gallops Extremities: Warm, well-perfused. No lower extremity edema. Dorsalis pedis and posterior tibial pulses are 2+ and symmetric. CARDIOVASCULAR MEDICINE TESTING: Echocardiogram 11/14/2019 Left ventricle: Normal size and normal systolic function and estimated ejection fraction 65%. Intermediate diastolic function. No regional wall motion abnormalities. Mitral valve: Diffuse thickening of the anterior leaflet. Mild mitral valve prolapse with mild mitral valve insufficiency. Mild tricuspid valve insufficiency Mild diffuse aortic valve thickening trileaflet aortic valve Cardiac catheterization 08/13/2019: Ventrciulogram: Ejection fraction 35% with severe hypo to akinesis of the mid LV with normal contraction of the apex and base of the left ventricle consistent with apical sparing Takasubo cardiomyopathy Left main: Mild luminal irregularities Left anterior descending: Mild luminal irregularities Left circumflex: Mild luminal irregularities Right coronary artery mild luminal irregularities Holter monitor 12/02/2011 IMPRESSIONS AND FINDINGS: This is a 48 hour recording The predominant rhythm is sinus Maximum heart rate of 121 occurs at 16:08 secondary to sinus tachycardia. Minimum heart rate of 45 occurs at 02:00 secondary to sinus bradycardia with normal TX interval 259 PACs are detected representing less than 1% of total beats 2086 ventricular ectopic beats are detected representing 1% of total beats. 7 ventricular couplets are detected At 06:21 3 PACs in a row are noted 2% beats occur at a heart rate of greater than 100 No atrial fibrillation, supraventricular tachycardia, complex ventricular ectopy, or pauses are seen The patient submits a detailed diary of activity but reports no symptoms Conclusion: Rare single PACs with 1 instance in which 3 PACs in a row occur Rare single ventricular ectopic beats with very rare couplets No symptoms are reported IMPRESSION: Ms. Hilliard is a 82 year old woman who has a history of Takotsubo cardiomyopathy diagnosed in 2004with recurrence in 2019 and 2020. She also has a history of labile hypertension which is likely related to underlying anxiety. She presents the office for routine follow-up PLAN AND RECOMMENDATIONS: 1. Screening for ischemic heart disease - ICD9: V81.0, ICD10: Z13.6 (primary diagnosis) 2. Coronary vasospasm (HCC) - ICD9: 413.1, ICD10: I20.1 3. Takotsubo cardiomyopathy - ICD9: 429.83, ICD10: I51.81 Patient reports 3 episodes of Takotsubo cardiomyopathy in her lifetime. Most recently 2020. Have encouraged her to continue low-dose beta-kadi therapy as tolerated by hemodynamics 4. Labile hypertension - ICD9: 401.9, ICD10: R09.89 Well-controlled blood pressure 5. Palpitations - ICD9: 785.1, ICD10: R00.2 6. Dilated cardiomyopathy (HCC) - ICD9: 425.4, ICD10: I42.0 Lissette Curiel MD documented in this encounterPark[facility]04-17-2023 Miscellaneous Notes* Telephone Encounter - Fannie Flores RN - 06/09/2022 1:10 PM EDT Call to pt. Pt states it is hard to control her BP under stressful situations and has history of 2 heart attacks and since she will be flying she wanted to make sure everything was in working orderso it would alleviate any extra worrying while they were gone. Pt states she is seeing PCP on Thursday who will usually prescribe her a medication for anxiety in these circumstances. Offered pt appt with Dr. Sagastume today at 2:20pm d/t cancellation, pt declined and would prefer to see Dr. Curiel sinceshe has seen him before. Will keep pt on cancellation list for Dr. Curiel. * Telephone Encounter - Emily Liao - 06/09/2022 12:40 PM EDT Patient is requesting a follow up with cardiology to prepare for upcoming trip out of town on July 04. Patient has had complications during previous travels. Patient is currently scheduled 01/2023. Please notify the patient if she can be examined prior to July 04. She prefers to be scheduled with an MD. documented in this encounterPark[facility]04-04-2022 Miscellaneous Notes* Telephone Encounter - Tamiko Graf MD - 05/27/2021 2:34 PM EDT Agree thanks * Telephone Encounter - Chiquita Bone RN - 05/27/2021 12:24 PM EDT Patient notified. [facility] and not wanting to come intooffice again. Requesting phone call visit instead. I did schedule this for 05/29/21 if that is okay. Please advise. Chiquita Bone RN * Telephone Encounter - Tamiko Graf MD - 05/27/2021 11:02 AM EDT Recommend scheduling a 30 min virtual visit thanks * Telephone Encounter - Michelle Lunsford RN - 05/27/2021 8:09 AM EDT Patient calling with a few questions for SW. What is the name of the [facility]/ONC doctor that you have been messaging? Was her cervix removed with her hysterectomy? Does [facility] use a different lab for oncology since her results are still pending? Her last biopsy with was back in two days. Will she need to have biopsies with oncology in addition to the biopsies with SW? Patient may benefit from a phone call. Michelle Lunsford RN documented in this encounterParkview [facility]04-01-2022 Miscellaneous Notes* Telephone Encounter - Michelle Lunsford RN - 05/24/2021 10:54 AM EDT Patient notified. Voiced understanding. Will call back to schedule 3 month follow-up. Not at home at this time. Michelle Lunsford RN * Telephone Encounter - Ilda Simpson RN - 05/24/2021 9:00 AM EDT Left message to call office. Ilda Simpson RN * Telephone Encounter - Tamiko Graf MD - 05/24/2021 8:15 AM EDT Please let pt know I communicated with [facility] through [employer] messaging. They recommend her doing a follow up appointment with me in 3 months to see if she is still having persistent bleeding. This appointment can be virtual. If bleeding is persistent he would recommend imaging at that time. Will wait for pap results as well. Also okay for annual exams from here on out, and we can stop doing paps but will need to do yearly pelvic exams [facility] Miscellaneous Notes* Telephone Encounter - Saida Gary RN - 05/22/2021 10:37 AM EDT Left message on patient voice mail with name and call back number. Stated returning pt's call and advised to call back if needed. * Telephone Encounter - Saida Gary RN - 05/22/2021 10:36 AM EDT ----- Message from Nupur HENDERSON sent at 05/22/2021 8:34 AM EDT ----- Former patient of Dr. Larson, scheduled today with OBGYN, would like a speak with nurse, states thatshe had a particular question that she will need for todays appt. Did not care to give details. Please return call to [phone] [facility] History of Present illness Narrative* Tamiko Graf MD - 05/22/2021 10:07 AM EDT Bharati Hilliard is a 81 year old female who presents for a pap smear. HPI: H/o stage 1A endometrioid type endometrial adenocarcinoma. S/p TLH in 2017. She reports she is to have pelvic exams and pap smears q 6 months until 5 years out per [facility] Dr. Larson. She is heretoday for a pap smear. She reports since she is 5 years out she was told she could be seen annuallyand has questions about this. Has had 3 episodes of brown spotting. Had a RLQ pinching pain that then improved, and she attributed this to walking her dog who was tugging on the leash - the pain shortly followed this. Otherwise she feels well. No vaginal discharge, itching, dryness or irritation. No abdominal pain, pelvic pain, difficulty with or change in BM's, trouble with urination, nausea, vomiting. Eating well. OB History T1 L1 SAB1 IAB0 Ectopic0 Multiple0 Live Births0 [employer] History LMP: Hysterectomy Age at Menarche: Age at First : Age at Menopause: [employer] History Comments: Sexual Activity: Never; No partner data on record Contraception: No contraception data on record PAST MEDICAL HISTORY Diagnosis Date Anxiety state, unspecified Coronary artery disease Diarrhea Diffuse cystic mastopathy fibercystic beast disease Endometrial cancer ([facility]) 04/30/2016 Heart attack ([facility]) 11/16/2020 Hypertension Hypothyroidism Irritable bowel syndrome Loss of weight Other psoriasis PMH - PAST MEDICAL HISTORY OF vitamin B12 deficiency PMH - PAST MEDICAL HISTORY OF 07/2007 right ovarian cyst removed, benign PMH - PAST MEDICAL HISTORY OF 08/2004 heart problems, [place] Solitary cyst of breast SVT (supraventricular tachycardia) ([facility]) 08/08/2010 Unspecified cataract x2 Unspecified congenital anomaly of heart mvp PAST SURGICAL HISTORY Procedure Laterality Date APPENDECTOMY 07/25/2007 DELIVERY ONLY 02/24/1976 , low transverse COLONOSCOPY FLX DX W/COLLJ SPEC WHEN PFRMD Colonoscopy x 2 COLONOSCOPY FLX DX W/COLLJ SPEC WHEN PFRMD 09/14/2012 Colonoscopy PAST SURGICAL HISTORY OF cyst frm breast left, benign PAST SURGICAL HISTORY OF 07/25/2007 oophorectomy bilateral REMV CATARACT EXTRACAP,INSERT LENS Bilateral 04/23 and 05/07 FAMILY HISTORY Problem Relation Age of Onset Colon Cancer Mother chemo and radiation Coronary Artery Disease Mother Hypertension Mother Prostate Cancer Father Coronary Artery Disease Father age 90 of lung disease Coronary Artery Disease Brother asthma other (crohns disease) Daughter Social History Tobacco Use Smoking status: Never Smoker Smokeless tobacco: Never Used Substance Use Topics Alcohol use: No Drug use: No Current Outpatient Medications Medication Sig sflnara-nujq-rvyzn-oreg-capryl 100 mg-150 mg- 50 mg-150 mg cap Take by mouth. MEDICATION, NON-DATABASE ashwagonda 500 mg once per day MEDICATION, NON-DATABASE reishi once per day nitroglycerin sublingual (NITROQUICK) 0.4 mg SL tablet Dissolve 1 tablet under the tongue as needed. For Chest Pain. If No Relief CALL 911 LORazepam (ATIVAN) 0.5 mg Take 0.5 mg by mouth once daily as needed. metoprolol tartrate, short acting, (LOPRESSOR) 25 mg tablet Take 0.5 tablets by mouth twice daily. For rapid heart rates selenium 200 mcg tab Take 1 tablet by mouth once daily. BIOTIN ORAL Take 1 tablet by mouth every other day. Cholecalciferol, Vitamin D3, (VITAMIN D) 1,000 unit tab Take 1,000 Units by mouth once daily. CYANOCOBALAMIN, VITAMIN B-12, (VITAMIN B-12 ORAL) Take by mouth. LACTOBACILLUS COMBO NO.6 (PROBIOTIC COMPLEX ORAL) Take by mouth once daily. Pre Probiotic daily VITAMIN E ORAL Take by mouth. (Patient not taking: Reported on 09/10/2020 ) ascorbic acid, vitamin C, (VITAMIN C) 500 mg tablet Take 500 mg by mouth once daily. No current facility-administered medications for this visit. Allergies As of Date: 05/22/2021 Allergen Noted Reaction COBEX 09/01/2008 Other: See Comments DEMEROL [MEPERIDINE (PF)] 07/13/2012 Other: See Comments ERTHROMYCIN [ERYTHROMYCIN] 09/01/2008 Intolerance IODINATED CONTRAST [OTHER] 09/01/2008 Rash MACROBID [NITROFURANTOIN MONOHYD/*06/04/2010 Other: See Comments PENICILLINS 05/06/2010 Rash STEROIDS [CORTICOSTEROIDS (GLUCOC*05/15/2014 Shortness of Breath and Other: See Comments SULFA (SULFONAMIDE ANTIBIOTICS) 09/01/2008 Rash Fully Assessed 05/22/2021 REVIEW OF SYSTEMS Expanded ROS: As noted above. Allergies and current medication updated:Yes EXAM: BP 140/66 Wt 98 lb (44.5kg) GENERAL: pleasant, female in no apparent distress CHEST: Normal inspiratory effort ABDOMEN: soft, non-tender and no masses PELVIC: external genitalia atrophic and introitus is narrowed - pediatric speculum used, normal Bartholin's glands, urethra, [place]'s glands, no vulvar lesions, good vaginal support, normal appearing perineal body and perianal region, vaginal mucosa is atrophic, no lesions or masses noted at vaginalcuff BIMANUAL: no adnexal masses, non-tender and uterus surgically absent, no masses palpated at vaginalcuff, the cuff palpates smooth NEURO: exam grossly non-focal EXTREMITIES: normal ASSESSMENT AND PLAN: Encounter Diagnosis ICD-10-CM 1. Endometrial cancer (HCC) C54.1 PAP FLUID VAGINAL VAULT SCREENING 2. Screening for cancer Z12.9 PAP FLUID VAGINAL VAULT SCREENING 3. Vaginal bleeding N93.9 BACT/NINA VAG GRAM STAIN H/o endometrial cancer Surgery was performed by Dr. Larson and she was initially following with him for surveillance Plan per Dr. Larson was for exams and pap smears q 6 months for 5 years Patient is now 5 years out Pap smear completed today Has had new PMB. Vaginal cuff normal appearing today. Vulvar and vaginal atrophy noted as possible cause of bleeding. Vaginitis swab to r/o infectious case. She is otherwise feeling well. Discussed possible need for CTAP given new bleeding and h/o cancer? Will discuss further with [facility] for recommendations Tamiko Graf DO Medical Decision Making: Problems: Moderate: 1+ chronic illnesses with change Risk: Low: Low risk from testing/treatment Medical Decision Making Level: 3 - Low [facility] Author Vee Chavarria [facility] Note Date/Time October 12, 2024 3: 09pm [facility] Medical Records Department [address] [place] [address] Discharge Summary 10/12/24 1453 MR#: [id number] Acct: [id number] Name: BHARATI HILLIARD Rep #:[id number] : 1940 84 From: Vee Chavarria MD PCP: Dr. Cira Ku DO Status:KURT JOEL Location: [place] [address] Providers Date of Admission: 10/11/24 Date of Discharge: 10/12/24 Primary Care Physician: Dr. Cira Ku DO Reason For Visit: ELEVATED TROPONIN W/ H.O TAKUTSUBO, FALL W/ WEAKNE Diagnosis Discharge Diagnosis (1) Fall down stairs: Status: Acute Code(s): W10.8XXA - Fall (on) (from) other stairs and steps, initial encounter (2) Elevated troponin: Status: Acute Code(s): R77.8 - Other specified abnormalities of plasma proteins Medications at Discharge Home Medications turmeric 100 mg-sae 150 mg-olive 50 mg-oreg 150 mg-capryl capsule 1 cap PO DAILY PRN supplement, bone health 11/01/20 ascorbic acid (vitamin C) 1,000 mg tablet 1 g PO DAILY supplement 12/03/20 cholecalciferol (vitamin D3) 50 mcg (2,000 unit) capsule 50 mcg PO DAILY supplement 12/03/20 mecobalamin (vitamin B12) 1,000 mcg chewable tablet 1,000 mcg PO DAILY supplement 12/03/20 lactobacillus combination no.9 4 billion cell capsule (Adult 50 Plus Probiotic) 4,000 mmu cells PO DAILY 04/12/21 selenium 200 mcg tablet 200 mcg PO DAILY jamie's 04/12/21 metoprolol tartrate 25 mg tablet 12.5 mg (1/2 x 25 mg) PO QHS heart #45 tabs 05/09/21 ascorbic acid 100 mg-elderberry fruit 50 mg chewable tablet 1 tab PO DAILY PRN during cold and flu season, supplement 11/06/21 lorazepam 0.5 mg tablet 0.25 mg PO DAILY PRN anxiety 11/06/21 magnesium 200 mg tablet 200 mg PO QHS 10/11/24 vitamin B complex (Balanced B-50 tablet) 1 tab PO DAILY supplement 10/11/24 Hospital Course Operations None Procedures 2-D Echocardiogram Summary of Care Provided Minutes Spent on Discharge: 45 Hospital Course: Patient is an 84-year-old female with a past medical history as outlined who wasadmitted through the ED on 10/11/2024 after she sustained a fall. She went to a flower shop on the day of admission and fell through a rotten wood step. She said the back of her head. She had had several episodes of Takotsubo cardiomyopathy back in 2008, 2011 and 2019. She also complained of mild chest pressure which she said was similar to when she had Takotsubo. On admission shewas mildly hypertensive and tachycardic. Chest x-ray was unremarkable. Initialtroponin was 10 but subsequent troponin subsequently trended upwards to over 600. Cardiology was consulted and patient told cardiology that her previous cardiac catheter showed clean coronaries and so she did not want to have a cardiac cath. She was however amenable for TTE. She was admitted and managed for non-STEMI thought to be due to Takotsubo cardiomyopathy. She did have 2D echo which showed EF of 40% with hypokinesis of the left ventricle and Takotsubofashion. She remained stable and was discharged home on 10/12/2024 per cardiology recommendations. She is follow-up with her primary care doctor and cardiology within 1 to 2 weeks. Patient seen and examined prior to discharge. She had no active complaints. Chest pain had not recurred. Review of systems otherwise negative. She again reiterated that she did not want any further workup done as she felt this was similar to her Takotsubo's. Labs and vitals reviewed. All medication reviewed and reconciled. Physical Exam Const alert, oriented x3 and no apparent distress General Appearance: cooperative and comfortable Exam Limitations: no limitations HEENT normocephalic, head/scalp atraumatic, hearing grossly normal bilaterally and moist oral mucous membranes Mouth: oral and palatal mucosa normal Eyes EOMs intact bilaterally and conjunctivae normal Neck supple and no JVD Resp normal respiratory effort, no use of accessory muscles and clear to auscultationbilaterally Cardio regular rate, regular rhythm, S1 normal heart sound, S2 normal heart sound and no murmurs GI normal to inspection, nondistended, normoactive bowel sounds, soft to palpation and non-tender Extremity normal to inspection, full ROM and no clubbing, cyanosis or edema Skin no rashes or lesions noted Neuro oriented x3, CN's II-XII intact bilaterally, moves all extremities and no focal motor deficits Sensorium / Orientation: awake and alert Motor Exam: strength 5/5 throughout Psych affect normal Weight / BMI Weight Weight: 100 lb 12.02 oz Body Mass Index (BMI) 18.4 ABG / Lab / Microbiology Data 10/12/24 04:45 10/12/24 04:45 Laboratory: Laboratory Results - last 24 hr 10/11/24 13:10: NT pro BNP II 491, TSH 2.410 10/11/24 15:39: Troponin T Hi Sens 4Hr 1573 H* 10/12/24 04:45: WBC 7.7, RBC 4.14 L, Hgb 11.9 L, Hct 35.6 L, MCV 86.0, MCH 28.7,MCHC 33.4, RDW Std Deviation 40.3, RDW Coeff of Lena 12.9, Plt Count 215, MPV 10.2, Sodium 129 L, Potassium 5.0, Chloride 95 L, Carbon Dioxide 23.5, Anion Gap10, BUN 20 H, Creatinine 0.73, Estim Creat Clear Calc 38.44 L, Est GFR (MDRD) Non-Af 82, BUN/Creatinine Ratio 27.5 H, Glucose 103 H, Calcium 9.0, Triglycerides 61, Cholesterol 183, LDL Cholesterol, Calc 90, VLDL Cholesterol 12, HDL Cholesterol 80, Cholesterol/HDL Ratio 2.28 Radiography Diagnostic Testing: Radiology Impression Echocardiogram 10/11/24 14:17 Interpretation Summary The estimated ejection fraction is 40 %. There is hypokinesis of the mid septal, lateral, and inferior frausto, extending to the apex. In Takutsubo fashion. A complete two-dimensional transthoracic echocardiogram was performed (2D, M- mode, Doppler and color flow Doppler). Ordering Physician: Timothy Baird Referring Physician: Cira Ku Performed By: Brenda Wang, DES, RVT D/C Instructions Discharge Activity: Return to Normal Activity Weight Bearing Status: Weight bearing as tolerated Call your doctor if you observe: Fever of 101 or Higher, Shortness of breath, Dizziness, Swelling in the ankles, Chest pain and Increased palpitations (irregular heartbeat) DC O2, CPAP, BIPAP Needs Home O2 Discharge instructions: No DC home with Oxygen: No Meaningful Use Info Meaningful Use Meaningful Use Diagnoses (Choose all that apply): None applicable Discharge Plan Admission Admit Date/Time: 10/11/24 14:13 Primary Reason for Your Visit: nonstemi, Takotsubo's cardiomyopathy Attending Provider: Vee Chavarria Primary Care Provider: Cira Ku Consulting Providers: Timothy Baird Instructions Patient Instructions: Takotsubo Cardiomyopathy Discharge Orders/Prescriptions Prescriptions: Continued lorazepam 0.5 mg tablet 0.25 mg PO DAILY PRN (Reason: anxiety) pnrcwtjl-bycd-tnhii-oreg-capry 100 mg-150 mg- 50 mg-150 mg capsule 1 cap PO DAILY PRN mecobalamin (vitamin B12) 1,000 mcg tablet,chewable 1,000 mcg PO DAILY cholecalciferol (vitamin D3) 50 mcg (2,000 unit) capsule 50 mcg PO DAILY ascorbic acid (vitamin C) 1,000 mg tablet 1 g PO DAILY Adult 50 Plus Probiotic 4 billion cell capsule 4,000 mmu cells PO DAILY Rx Instructions: administer with a meal selenium 200 mcg tablet 200 mcg PO DAILY ascorbic acid-elderberry fruit 100-50 mg tablet,chewable 1 tab PO DAILY PRN (Reason: during cold and flu season, supplement) vitamin B complex [Balanced B-50] Tablet 1 tab PO DAILY magnesium 200 mg tablet 200 mg PO QHS metoprolol tartrate 25 mg tablet 12.5 mg PO QHS Qty: 45 3RF Rx Instructions: Needs to be made by [employer] Referrals / Follow Up: Bo Huitron MD [Med Staff - Active Staff] - Within 1 Week Cira Ku DO [Primary Care Provider] - Within 1 Week Disposition Disposition (needs filled in before D/C Order can be placed): Home, Self Care Charges/Coding Visit Charges Inpatient E&M: 03575 Disch Hosp >30min 10/12/24 1509 <Electronically signed by Vee Chavarria MD> Cosigner Signature (if applicable): CC: Dr. Cira Ku DO; Dr. Vee Chavarria MD~ Signed [facility] Work Phone: Discharge summary Author Vee [facility] Note Date/Time October 12, 2024 4: 15pm [facility] Medical Records Department [address] [place] [id number] Instructions for Home/Discharge Instructions 10/12/24 1507 MR#: [id number] Acct: [id number] Name: BHARATI HILLIARD Rep #:[id number] : 1940 84 From: Vee Chavarria MD PCP: Dr. Cira Ku DO Status:AD M MARYCRUZ Discharge Instructions DC O2, CPAP, BIPAP needs Home O2 Discharge instructions: No Dressing / Incision Discharge Activity: Return to Normal Activity Dressing / Incision Call your doctor if you observe: Fever of 101 or Higher, Shortness of breath, Dizziness, Swelling in the ankles and Chest pain Follow Up Care Test Results: Test results from this visit will be discussed in further detail at your follow- up appointment, if applicable. Discharge Plan Admission Admit Date/Time: 10/11/24 14:13 Primary Reason for Your Visit: nonstemi, Takotsubo's cardiomyopathy Attending Provider: Vee Chavarria Primary Care Provider: Cira Ku Consulting Providers: Mosteller,Timothy Instructions Patient Instructions: Takotsubo Cardiomyopathy Discharge Orders/Prescriptions Prescriptions: Continued lorazepam 0.5 mg tablet 0.25 mg PO DAILY PRN (Reason: anxiety) wojshmzg-byjf-tusfc-oreg-capry 100 mg-150 mg- 50 mg-150 mg capsule 1 cap PO DAILY PRN mecobalamin (vitamin B12) 1,000 mcg tablet,chewable 1,000 mcg PO DAILY cholecalciferol (vitamin D3) 50 mcg (2,000 unit) capsule 50 mcg PO DAILY ascorbic acid (vitamin C) 1,000 mg tablet 1 g PO DAILY Adult 50 Plus Probiotic 4 billion cell capsule 4,000 mmu cells PO DAILY Rx Instructions: administer with a meal selenium 200 mcg tablet 200 mcg PO DAILY ascorbic acid-elderberry fruit 100-50 mg tablet,chewable 1 tab PO DAILY PRN (Reason: during cold and flu season, supplement) vitamin B complex [Balanced B-50] Tablet 1 tab PO DAILY magnesium 200 mg tablet 200 mg PO QHS metoprolol tartrate 25 mg tablet 12.5 mg PO QHS Qty: 45 3RF Rx Instructions: Needs to be made by [employer] Referrals / Follow Up: Bo Huitron MD [Med Staff - Active Staff] - Within 1 Week Cira Ku DO [Primary Care Provider] - Within 1 Week Disposition Disposition (needs filled in before D/C Order can be placed): Home, Self Care 10/12/24 1507<Electronically signed by Vee Chavarria MD>Vee Chavarria MD CC: Dr. Timothy Baird DO; Dr. Cira Ku DO ~ Signed [facility] Work Phone: Evaluation note* Diagnosis Endometrial cancer (HCC)- Primary Malignant neoplasm of corpus uteri, except isthmus Screening for cancer Screening for unspecified malignant neoplasm Vaginal bleeding Other specified noninflammatory disorder of vagina [facility] Diagnosis Onset Date Resolution Status Takotsubo cardiomyopathy acu te Essential hypertension chron ic History of supraventricular tachycardia chronic Acute pharyngitis acute Contact with or suspected ex posure to other viral communicable disease acute [facility] Work Phone: Evaluation note* Diagnosis Onset Date Resolution Status HLD (hyperlipidemia) acute Takotsubo cardiomyopathy acu te Essential hypertension chron ic History of supraventricular tachycardia chronic [facility] Work Phone: evaluation noteNo assessment information available [facility] Work Phone: evaluysqee note* Diagnosis Screening for ischemic heart disease- Primary Coronary vasospasm (HCC) Prinzmetal angina Takotsubo cardiomyopathy Takotsubo syndrome Labile hypertension Unspecified essential hypertension Palpitations Dilated cardiomyopathy (HCC) Other primary cardiomyopathies documented in this encounter [facility] note* Diagnosis Encounter for gynecological examination (general) (routine) without abnormal findings- Primary Encounter for screening mammogram for breast cancer documented in this encounter [facility] note* Diagnosis Takotsubo cardiomyopathy- Primary Takotsubo syndrome Labile hypertension Unspecified essential hypertension Coronary vasospasm (HCC) Prinzmetal angina documented in this encounter [facility] note* Diagnosis Onset Date Resolution Status Admit Date Closed head injury acute October 11, 2024 2:13pm Elevated troponin acute October 11, 2024 2:13pm Fall down stairs acute September 232024 2:13pm HLD (hyperlipidemia) acute Augu st 2024 2:13pm Takotsubo cardiomyopathy acute October 11, 2024 2:13pm Essential hypertension chronic [place] 2024 2:13pm History of supraventricular tachycardia chronic October 11 2:13pm [facility] Work Phone: evaluation note* Diagnosis Takotsubo cardiomyopathy- Primary Takotsubo syndrome SVT (supraventricular tachycardia) (HCC) Other specified cardiac dysrhythmias Labile hypertension Unspecified essential hypertension Palpitations Coronary vasospasm Prinzmetal angina [facility]* Name Dates Details How to Access Health Informa tion Online using Patient Portal and [employer] Apps Indication:Non-smoker Start:09-May-2020 Instruction Type:Patient Education Patient Instructions Indication:Non-smoker Start:09-May-2020 Instruction Type:Provider Instructions for Treatment Patient Instructions Indication:Chills Start:04-May-2020 Instruction Type:Provider Instructions for Treatment How to Access Health Informa tion Online using Patient Portal and [employer] Apps Indication:Non-smoker Start:06-Apr-2020 Instruction Type:Patient Education Patient Instructions Indication:Non-smoker Start:06-Apr-2020 Instruction Type:Provider Instructions for Treatment How to access health informa tion online Indication:Non-smoker Start:13-Oct-2019 Instruction Type:Patient Education How to access health informa tion online - Detail Indication:Non-smoker Start:13-Oct-2019 Instruction Type:Patient Education Patient Instructions Indication:Non-smoker Start:13-Oct-2019 Instruction Type:Provider Instructions for Treatment How to access health informa tion online Indication:Non-smoker Start:03-Oct-2019 Instruction Type:Patient Education How to access health informa tion online - Detail Indication:Non-smoker Start:03-Oct-2019 Instruction Type:Patient Education Patient Instructions Indication:Non-smoker Start:03-Oct-2019 Instruction Type:Provider Instructions for Treatment How to access health informa tion online Indication:BMI less than 19,adult Start:17-Aug-2019 Instruction Type:Patient Education How to access health informa tion online - Detail Indication:BMI less than 19,adult Start:17-Aug-2019 Instruction Type:Patient Education Patient Instructions Indication:BMI less than 19,adult Start:17-Aug-2019 Instruction Type:Provider Instructions for Treatment How to access health informa tion online Indication:Non-smoker Start:15-Nov-2018 Instruction Type:Patient Education How to access health informa tion online - Detail Indication:Non-smoker Start:15-Nov-2018 Instruction Type:Patient Education Patient Instructions Indication:Skin rash Start:15-Nov-2018 Instruction Type:Provider Instructions for Treatment How to access health informa tion online Indication:Non-smoker Start:01-Oct-2018 Instruction Type:Patient Education How to access health informa tion online - Detail Indication:Non-smoker Start:01-Oct-2018 Instruction Type:Patient Education Patient Instructions Indication:Non-smoker Start:01-Oct-2018 Instruction Type:Provider Instructions for Treatment How to access health informa tion online Indication:Non-smoker Start:09-Sep-2018 Instruction Type:Patient Education How to access health informa tion online - Detail Indication:Non-smoker Start:09-Sep-2018 Instruction Type:Patient Education Patient Instructions Indication:Elevated blood pressure reading Start:09-Sep-2018 Instruction Type:Provider Instructions for Treatment How to access health informa tion online Indication:BMI between 19-24,adult Start:12-Aug-2018 Instruction Type:Patient Education How to access health informa tion online - Detail Indication:BMI between 19-24,adult Start:12-Aug-2018 Instruction Type:Patient Education Patient Instructions Indication:Abdominal pain Start:12-Aug-2018 Instruction Type:Provider Instructions for Treatment How to access health informa tion online Indication:Non-smoker Start:28-May-2018 Instruction Type:Patient Education How to access health informa tion online - Detail Indication:Non-smoker Start:28-May-2018 Instruction Type:Patient Education Patient Instructions Indication:Non-smoker Start:28-May-2018 Instruction Type:Provider Instructions for Treatment How to access health informa tion online Indication:Non-smoker Start:14-Jul-2017 Instruction Type:Patient Education How to access health informa tion online - Detail Indication:Non-smoker Start:14-Jul-2017 Instruction Type:Patient Education Patient Instructions Indication:Non-smoker Start:14-Jul-2017 Instruction Type:Provider Instructions for Treatment How to access health informa tion online Indication:Non-smoker Start:08-May-2017 Instruction Type:Patient Education How to access health informa tion online - Detail Indication:Non-smoker Start:08-May-2017 Instruction Type:Patient Education Patient Instructions Indication:Non-smoker Start:08-May-2017 Instruction Type:Provider Instructions for Treatment How to access health informa tion online Indication:Non-smoker Start:22-Apr-2017 Instruction Type:Patient Education How to access health informa tion online - Detail Indication:Non-smoker Start:22-Apr-2017 Instruction Type:Patient Education Patient Instructions Indication:Non-smoker Start:22-Apr-2017 Instruction Type:Provider Instructions for Treatment How to access health informa tion online Indication:BMI less than 19,adult Start:14-Nov-2016 Instruction Type:Patient Education How to access health informa tion online - Detail Indication:BMI less than 19,adult Start:14-Nov-2016 Instruction Type:Patient Education Patient Instructions Indication:BMI less than 19,adult Start:14-Nov-2016 Instruction Type:Provider Instructions for Treatment Patient Instructions Indication:Benign essential hypertension Start:08-Sep-2016 Instruction Type:Provider Instructions for Treatment How to access health informa tion online Indication:Non-smoker Start:28-Aug-2016 Instruction Type:Patient Education How to access health informa tion online - Detail Indication:Non-smoker Start:28-Aug-2016 Instruction Type:Patient Education Patient Instructions Indication:Non-smoker Start:28-Aug-2016 Instruction Type:Provider Instructions for Treatment How to access health informa tion online Indication:BMI between 19-24,adult Start:24-Apr-2016 Instruction Type:Patient Education How to access health informa tion online - Detail Indication:BMI between 19-24,adult Start:24-Apr-2016 Instruction Type:Patient Education Patient Instructions Indication:BMI between 19-24,adult Start:24-Apr-2016 Instruction Type:Provider Instructions for Treatment Patient Instructions 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.) Start:02-Jul-2015 Instruction Type:Provider Instructions for Treatment How to access health informa tion online Indication:Anxiety Start:02-Jul-2015 Instruction Type:Patient Education How to access health informa tion online - Detail Indication:Anxiety Start:02-Jul-2015 Instruction Type:Patient Education Patient Instructions Indication:Anxiety Start:27-Nov-2011 Instruction Type:Provider Instructions for Treatment [facility]; [facility] Work Phone: Instructions* Name Dates Details How to Access Health Informa tion Online using Patient Portal and [employer]rd [employer] Apps Indication:Non-smoker Start:08-Aug-2020 Instruction Type:Patient Education Patient Instructions Indication:Non-smoker Start:08-Aug-2020 Instruction Type:Provider Instructions for Treatment How to Access Health Informa tion Online using Patient Portal and [employer] Apps Indication:Non-smoker Start:09-May-2020 Instruction Type:Patient Education Patient Instructions Indication:Non-smoker Start:09-May-2020 Instruction Type:Provider Instructions for Treatment Patient Instructions Indication:[place] Start:04-May-2020 Instruction Type:Provider Instructions for Treatment How to Access Health Informa tion Online using Patient Portal and [employer] Apps Indication:Non-smoker Start:06-Apr-2020 Instruction Type:Patient Education Patient Instructions Indication:Non-smoker Start:06-Apr-2020 Instruction Type:Provider Instructions for Treatment How to access health informa tion online Indication:Non-smoker Start:13-Oct-2019 Instruction Type:Patient Education How to access health informa tion online - Detail Indication:Non-smoker Start:13-Oct-2019 Instruction Type:Patient Education Patient Instructions Indication:Non-smoker Start:13-Oct-2019 Instruction Type:Provider Instructions for Treatment How to access health informa tion online Indication:Non-smoker Start:03-Oct-2019 Instruction Type:Patient Education How to access health informa tion online - Detail Indication:Non-smoker Start:03-Oct-2019 Instruction Type:Patient Education Patient Instructions Indication:Non-smoker Start:03-Oct-2019 Instruction Type:Provider Instructions for Treatment How to access health informa tion online Indication:BMI less than 19,adult Start:17-Aug-2019 Instruction Type:Patient Education How to access health informa tion online - Detail Indication:BMI less than 19,adult Start:17-Aug-2019 Instruction Type:Patient Education Patient Instructions Indication:BMI less than 19,adult Start:17-Aug-2019 Instruction Type:Provider Instructions for Treatment How to access health informa tion online Indication:Non-smoker Start:15-Nov-2018 Instruction Type:Patient Education How to access health informa tion online - Detail Indication:Non-smoker Start:15-Nov-2018 Instruction Type:Patient Education Patient Instructions Indication:Skin rash Start:15-Nov-2018 Instruction Type:Provider Instructions for Treatment How to access health informa tion online Indication:Non-smoker Start:01-Oct-2018 Instruction Type:Patient Education How to access health informa tion online - Detail Indication:Non-smoker Start:01-Oct-2018 Instruction Type:Patient Education Patient Instructions Indication:Non-smoker Start:01-Oct-2018 Instruction Type:Provider Instructions for Treatment How to access health informa tion online Indication:Non-smoker Start:09-Sep-2018 Instruction Type:Patient Education How to access health informa tion online - Detail Indication:Non-smoker Start:09-Sep-2018 Instruction Type:Patient Education Patient Instructions Indication:Elevated blood pressure reading Start:09-Sep-2018 Instruction Type:Provider Instructions for Treatment How to access health informa tion online Indication:BMI between 19-24,adult Start:12-Aug-2018 Instruction Type:Patient Education How to access health informa tion online - Detail Indication:BMI between 19-24,adult Start:12-Aug-2018 Instruction Type:Patient Education Patient Instructions Indication:Abdominal pain Start:12-Aug-2018 Instruction Type:Provider Instructions for Treatment How to access health informa tion online Indication:Non-smoker Start:28-May-2018 Instruction Type:Patient Education How to access health informa tion online - Detail Indication:Non-smoker Start:28-May-2018 Instruction Type:Patient Education Patient Instructions Indication:Non-smoker Start:28-May-2018 Instruction Type:Provider Instructions for Treatment How to access health informa tion online Indication:Non-smoker Start:14-Jul-2017 Instruction Type:Patient Education How to access health informa tion online - Detail Indication:Non-smoker Start:14-Jul-2017 Instruction Type:Patient Education Patient Instructions Indication:Non-smoker Start:14-Jul-2017 Instruction Type:Provider Instructions for Treatment How to access health informa tion online Indication:Non-smoker Start:08-May-2017 Instruction Type:Patient Education How to access health informa tion online - Detail Indication:Non-smoker Start:08-May-2017 Instruction Type:Patient Education Patient Instructions Indication:Non-smoker Start:08-May-2017 Instruction Type:Provider Instructions for Treatment How to access health informa tion online Indication:Non-smoker Start:22-Apr-2017 Instruction Type:Patient Education How to access health informa tion online - Detail Indication:Non-smoker Start:22-Apr-2017 Instruction Type:Patient Education Patient Instructions Indication:Non-smoker Start:22-Apr-2017 Instruction Type:Provider Instructions for Treatment How to access health informa tion online Indication:BMI less than 19,adult Start:14-Nov-2016 Instruction Type:Patient Education How to access health informa tion online - Detail Indication:BMI less than 19,adult Start:14-Nov-2016 Instruction Type:Patient Education Patient Instructions Indication:BMI less than 19,adult Start:14-Nov-2016 Instruction Type:Provider Instructions for Treatment Patient Instructions Indication:Benign essential hypertension Start:08-Sep-2016 Instruction Type:Provider Instructions for Treatment How to access health informa tion online Indication:Non-smoker Start:28-Aug-2016 Instruction Type:Patient Education How to access health informa tion online - Detail Indication:Non-smoker Start:28-Aug-2016 Instruction Type:Patient Education Patient Instructions Indication:Non-smoker Start:28-Aug-2016 Instruction Type:Provider Instructions for Treatment How to access health informa tion online Indication:BMI between 19-24,adult Start:24-Apr-2016 Instruction Type:Patient Education How to access health informa tion online - Detail Indication:BMI between 19-24,adult Start:24-Apr-2016 Instruction Type:Patient Education Patient Instructions Indication:BMI between 19-24,adult Start:24-Apr-2016 Instruction Type:Provider Instructions for Treatment Patient Instructions 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.) Start:02-Jul-2015 Instruction Type:Provider Instructions for Treatment How to access health informa tion online Indication:Anxiety Start:02-Jul-2015 Instruction Type:Patient Education How to access health informa tion online - Detail Indication:Anxiety Start:02-Jul-2015 Instruction Type:Patient Education Patient Instructions Indication:Anxiety Start:27-Nov-2011 Instruction Type:Provider Instructions for Treatment [facility]; [facility] Work Phone: Instructions* Name Dates Details How to Access Health Informa tion Online using Patient Portal and [employer]rd [employer] Apps Indication:Non-smoker Start:08-Aug-2020 Instruction Type:Patient Education Patient Instructions Indication:Non-smoker Start:08-Aug-2020 Instruction Type:Provider Instructions for Treatment How to Access Health Informa tion Online using Patient Portal and [employer]rd [employer] Apps Indication:Non-smoker Start:09-May-2020 Instruction Type:Patient Education Patient Instructions Indication:Non-smoker Start:09-May-2020 Instruction Type:Provider Instructions for Treatment Patient Instructions Indication:[place] Start:04-May-2020 Instruction Type:Provider Instructions for Treatment How to Access Health Informa tion Online using Patient Portal and [employer]rd [employer] Apps Indication:Non-smoker Start:06-Apr-2020 Instruction Type:Patient Education Patient Instructions Indication:Non-smoker Start:06-Apr-2020 Instruction Type:Provider Instructions for Treatment How to access health informa tion online Indication:Non-smoker Start:13-Oct-2019 Instruction Type:Patient Education How to access health informa tion online - Detail Indication:Non-smoker Start:13-Oct-2019 Instruction Type:Patient Education Patient Instructions Indication:Non-smoker Start:13-Oct-2019 Instruction Type:Provider Instructions for Treatment How to access health informa tion online Indication:Non-smoker Start:03-Oct-2019 Instruction Type:Patient Education How to access health informa tion online - Detail Indication:Non-smoker Start:03-Oct-2019 Instruction Type:Patient Education Patient Instructions Indication:Non-smoker Start:03-Oct-2019 Instruction Type:Provider Instructions for Treatment How to access health informa tion online Indication:BMI less than 19,adult Start:17-Aug-2019 Instruction Type:Patient Education How to access health informa tion online - Detail Indication:BMI less than 19,adult Start:17-Aug-2019 Instruction Type:Patient Education Patient Instructions Indication:BMI less than 19,adult Start:17-Aug-2019 Instruction Type:Provider Instructions for Treatment How to access health informa tion online Indication:Non-smoker Start:15-Nov-2018 Instruction Type:Patient Education How to access health informa tion online - Detail Indication:Non-smoker Start:15-Nov-2018 Instruction Type:Patient Education Patient Instructions Indication:Skin rash Start:15-Nov-2018 Instruction Type:Provider Instructions for Treatment How to access health informa tion online Indication:Non-smoker Start:01-Oct-2018 Instruction Type:Patient Education How to access health informa tion online - Detail Indication:Non-smoker Start:01-Oct-2018 Instruction Type:Patient Education Patient Instructions Indication:Non-smoker Start:01-Oct-2018 Instruction Type:Provider Instructions for Treatment How to access health informa tion online Indication:Non-smoker Start:09-Sep-2018 Instruction Type:Patient Education How to access health informa tion online - Detail Indication:Non-smoker Start:09-Sep-2018 Instruction Type:Patient Education Patient Instructions Indication:Elevated blood pressure reading Start:09-Sep-2018 Instruction Type:Provider Instructions for Treatment How to access health informa tion online Indication:BMI between 19-24,adult Start:12-Aug-2018 Instruction Type:Patient Education How to access health informa tion online - Detail Indication:BMI between 19-24,adult Start:12-Aug-2018 Instruction Type:Patient Education Patient Instructions Indication:Abdominal pain Start:12-Aug-2018 Instruction Type:Provider Instructions for Treatment How to access health informa tion online Indication:Non-smoker Start:28-May-2018 Instruction Type:Patient Education How to access health informa tion online - Detail Indication:Non-smoker Start:28-May-2018 Instruction Type:Patient Education Patient Instructions Indication:Non-smoker Start:28-May-2018 Instruction Type:Provider Instructions for Treatment How to access health informa tion online Indication:Non-smoker Start:14-Jul-2017 Instruction Type:Patient Education How to access health informa tion online - Detail Indication:Non-smoker Start:14-Jul-2017 Instruction Type:Patient Education Patient Instructions Indication:Non-smoker Start:14-Jul-2017 Instruction Type:Provider Instructions for Treatment How to access health informa tion online Indication:Non-smoker Start:08-May-2017 Instruction Type:Patient Education How to access health informa tion online - Detail Indication:Non-smoker Start:08-May-2017 Instruction Type:Patient Education Patient Instructions Indication:Non-smoker Start:08-May-2017 Instruction Type:Provider Instructions for Treatment How to access health informa tion online Indication:Non-smoker Start:22-Apr-2017 Instruction Type:Patient Education How to access health informa tion online - Detail Indication:Non-smoker Start:22-Apr-2017 Instruction Type:Patient Education Patient Instructions Indication:Non-smoker Start:22-Apr-2017 Instruction Type:Provider Instructions for Treatment How to access health informa tion online Indication:BMI less than 19,adult Start:14-Nov-2016 Instruction Type:Patient Education How to access health informa tion online - Detail Indication:BMI less than 19,adult Start:14-Nov-2016 Instruction Type:Patient Education Patient Instructions Indication:BMI less than 19,adult Start:14-Nov-2016 Instruction Type:Provider Instructions for Treatment Patient Instructions Indication:Benign essential hypertension Start:08-Sep-2016 Instruction Type:Provider Instructions for Treatment How to access health informa tion online Indication:Non-smoker Start:28-Aug-2016 Instruction Type:Patient Education How to access health informa tion online - Detail Indication:Non-smoker Start:28-Aug-2016 Instruction Type:Patient Education Patient Instructions Indication:Non-smoker Start:28-Aug-2016 Instruction Type:Provider Instructions for Treatment How to access health informa tion online Indication:BMI between 19-24,adult Start:24-Apr-2016 Instruction Type:Patient Education How to access health informa tion online - Detail Indication:BMI between 19-24,adult Start:24-Apr-2016 Instruction Type:Patient Education Patient Instructions Indication:BMI between 19-24,adult Start:24-Apr-2016 Instruction Type:Provider Instructions for Treatment Patient Instructions 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.) Start:02-Jul-2015 Instruction Type:Provider Instructions for Treatment How to access health informa tion online Indication:Anxiety Start:02-Jul-2015 Instruction Type:Patient Education How to access health informa tion online - Detail Indication:Anxiety Start:02-Jul-2015 Instruction Type:Patient Education Patient Instructions Indication:Anxiety Start:27-Nov-2011 Instruction Type:Provider Instructions for Treatment [facility]; [facility] Work Phone: Instructions* Name Dates Details How to Access Health Informa tion Online using Patient Portal and [employer]rd [employer] Apps Indication:Non-smoker Start:08-Aug-2020 Instruction Type:Patient Education Patient Instructions Indication:Non-smoker Start:08-Aug-2020 Instruction Type:Provider Instructions for Treatment How to Access Health Informa tion Online using Patient Portal and [employer] Apps Indication:Non-smoker Start:09-May-2020 Instruction Type:Patient Education Patient Instructions Indication:Non-smoker Start:09-May-2020 Instruction Type:Provider Instructions for Treatment Patient Instructions Indication:[place] Start:04-May-2020 Instruction Type:Provider Instructions for Treatment How to Access Health Informa tion Online using Patient Portal and [employer] Apps Indication:Non-smoker Start:06-Apr-2020 Instruction Type:Patient Education Patient Instructions Indication:Non-smoker Start:06-Apr-2020 Instruction Type:Provider Instructions for Treatment How to access health informa tion online Indication:Non-smoker Start:13-Oct-2019 Instruction Type:Patient Education How to access health informa tion online - Detail Indication:Non-smoker Start:13-Oct-2019 Instruction Type:Patient Education Patient Instructions Indication:Non-smoker Start:13-Oct-2019 Instruction Type:Provider Instructions for Treatment How to access health informa tion online Indication:Non-smoker Start:03-Oct-2019 Instruction Type:Patient Education How to access health informa tion online - Detail Indication:Non-smoker Start:03-Oct-2019 Instruction Type:Patient Education Patient Instructions Indication:Non-smoker Start:03-Oct-2019 Instruction Type:Provider Instructions for Treatment How to access health informa tion online Indication:BMI less than 19,adult Start:17-Aug-2019 Instruction Type:Patient Education How to access health informa tion online - Detail Indication:BMI less than 19,adult Start:17-Aug-2019 Instruction Type:Patient Education Patient Instructions Indication:BMI less than 19,adult Start:17-Aug-2019 Instruction Type:Provider Instructions for Treatment How to access health informa tion online Indication:Non-smoker Start:15-Nov-2018 Instruction Type:Patient Education How to access health informa tion online - Detail Indication:Non-smoker Start:15-Nov-2018 Instruction Type:Patient Education Patient Instructions Indication:Skin rash Start:15-Nov-2018 Instruction Type:Provider Instructions for Treatment How to access health informa tion online Indication:Non-smoker Start:01-Oct-2018 Instruction Type:Patient Education How to access health informa tion online - Detail Indication:Non-smoker Start:01-Oct-2018 Instruction Type:Patient Education Patient Instructions Indication:Non-smoker Start:01-Oct-2018 Instruction Type:Provider Instructions for Treatment How to access health informa tion online Indication:Non-smoker Start:09-Sep-2018 Instruction Type:Patient Education How to access health informa tion online - Detail Indication:Non-smoker Start:09-Sep-2018 Instruction Type:Patient Education Patient Instructions Indication:Elevated blood pressure reading Start:09-Sep-2018 Instruction Type:Provider Instructions for Treatment How to access health informa tion online Indication:BMI between 19-24,adult Start:12-Aug-2018 Instruction Type:Patient Education How to access health informa tion online - Detail Indication:BMI between 19-24,adult Start:12-Aug-2018 Instruction Type:Patient Education Patient Instructions Indication:Abdominal pain Start:12-Aug-2018 Instruction Type:Provider Instructions for Treatment How to access health informa tion online Indication:Non-smoker Start:28-May-2018 Instruction Type:Patient Education How to access health informa tion online - Detail Indication:Non-smoker Start:28-May-2018 Instruction Type:Patient Education Patient Instructions Indication:Non-smoker Start:28-May-2018 Instruction Type:Provider Instructions for Treatment How to access health informa tion online Indication:Non-smoker Start:14-Jul-2017 Instruction Type:Patient Education How to access health informa tion online - Detail Indication:Non-smoker Start:14-Jul-2017 Instruction Type:Patient Education Patient Instructions Indication:Non-smoker Start:14-Jul-2017 Instruction Type:Provider Instructions for Treatment How to access health informa tion online Indication:Non-smoker Start:08-May-2017 Instruction Type:Patient Education How to access health informa tion online - Detail Indication:Non-smoker Start:08-May-2017 Instruction Type:Patient Education Patient Instructions Indication:Non-smoker Start:08-May-2017 Instruction Type:Provider Instructions for Treatment How to access health informa tion online Indication:Non-smoker Start:22-Apr-2017 Instruction Type:Patient Education How to access health informa tion online - Detail Indication:Non-smoker Start:22-Apr-2017 Instruction Type:Patient Education Patient Instructions Indication:Non-smoker Start:22-Apr-2017 Instruction Type:Provider Instructions for Treatment How to access health informa tion online Indication:BMI less than 19,adult Start:14-Nov-2016 Instruction Type:Patient Education How to access health informa tion online - Detail Indication:BMI less than 19,adult Start:14-Nov-2016 Instruction Type:Patient Education Patient Instructions Indication:BMI less than 19,adult Start:14-Nov-2016 Instruction Type:Provider Instructions for Treatment Patient Instructions Indication:Benign essential hypertension Start:08-Sep-2016 Instruction Type:Provider Instructions for Treatment How to access health informa tion online Indication:Non-smoker Start:28-Aug-2016 Instruction Type:Patient Education How to access health informa tion online - Detail Indication:Non-smoker Start:28-Aug-2016 Instruction Type:Patient Education Patient Instructions Indication:Non-smoker Start:28-Aug-2016 Instruction Type:Provider Instructions for Treatment How to access health informa tion online Indication:BMI between 19-24,adult Start:24-Apr-2016 Instruction Type:Patient Education How to access health informa tion online - Detail Indication:BMI between 19-24,adult Start:24-Apr-2016 Instruction Type:Patient Education Patient Instructions Indication:BMI between 19-24,adult Start:24-Apr-2016 Instruction Type:Provider Instructions for Treatment Patient Instructions 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.) Start:02-Jul-2015 Instruction Type:Provider Instructions for Treatment How to access health informa tion online Indication:Anxiety Start:02-Jul-2015 Instruction Type:Patient Education How to access health informa tion online - Detail Indication:Anxiety Start:02-Jul-2015 Instruction Type:Patient Education Patient Instructions Indication:Anxiety Start:27-Nov-2011 Instruction Type:Provider Instructions for Treatment [facility]; [facility] Work Phone: Instructions* Name Dates Details Patient Instructions Indication:Non-smoker Start:11-Feb-2021 Instruction Type:Provider Instructions for Treatment How to Access Health Informa tion Online using Patient Portal and [employer] Apps Indication:Non-smoker Start:11-Feb-2021 Instruction Type:Patient Education Patient Instructions Indication:BMI less than 19,adult Start:02-Nov-2020 Instruction Type:Provider Instructions for Treatment How to Access Health Informa tion Online using Patient Portal and [employer] Apps Indication:BMI less than 19,adult Start:02-Nov-2020 Instruction Type:Patient Education Patient Instructions Indication:BMI less than 19,adult Start:25-Oct-2020 Instruction Type:Provider Instructions for Treatment How to Access Health Informa tion Online using Patient Portal and [employer] Apps Indication:BMI less than 19,adult Start:25-Oct-2020 Instruction Type:Patient Education Patient Instructions Indication:BMI less than 19,adult Start:22-Oct-2020 Instruction Type:Provider Instructions for Treatment How to Access Health Informa tion Online using Patient Portal and [employer]rd [employer] Apps Indication:BMI less than 19,adult Start:22-Oct-2020 Instruction Type:Patient Education How to Access Health Informa tion Online using Patient Portal and [employer]rd [employer] Apps Indication:Non-smoker Start:08-Aug-2020 Instruction Type:Patient Education Patient Instructions Indication:Non-smoker Start:08-Aug-2020 Instruction Type:Provider Instructions for Treatment How to Access Health Informa tion Online using Patient Portal and [employer]rd [employer] Apps Indication:Non-smoker Start:09-May-2020 Instruction Type:Patient Education Patient Instructions Indication:Non-smoker Start:09-May-2020 Instruction Type:Provider Instructions for Treatment Patient Instructions Indication:[place] Start:04-May-2020 Instruction Type:Provider Instructions for Treatment How to Access Health Informa tion Online using Patient Portal and [employer]rd [employer] Apps Indication:Non-smoker Start:06-Apr-2020 Instruction Type:Patient Education Patient Instructions Indication:Non-smoker Start:06-Apr-2020 Instruction Type:Provider Instructions for Treatment How to access health informa tion online Indication:Non-smoker Start:13-Oct-2019 Instruction Type:Patient Education How to access health informa tion online - Detail Indication:Non-smoker Start:13-Oct-2019 Instruction Type:Patient Education Patient Instructions Indication:Non-smoker Start:13-Oct-2019 Instruction Type:Provider Instructions for Treatment How to access health informa tion online Indication:Non-smoker Start:03-Oct-2019 Instruction Type:Patient Education How to access health informa tion online - Detail Indication:Non-smoker Start:03-Oct-2019 Instruction Type:Patient Education Patient Instructions Indication:Non-smoker Start:03-Oct-2019 Instruction Type:Provider Instructions for Treatment How to access health informa tion online Indication:BMI less than 19,adult Start:17-Aug-2019 Instruction Type:Patient Education How to access health informa tion online - Detail Indication:BMI less than 19,adult Start:17-Aug-2019 Instruction Type:Patient Education Patient Instructions Indication:BMI less than 19,adult Start:17-Aug-2019 Instruction Type:Provider Instructions for Treatment How to access health informa tion online Indication:Non-smoker Start:15-Nov-2018 Instruction Type:Patient Education How to access health informa tion online - Detail Indication:Non-smoker Start:15-Nov-2018 Instruction Type:Patient Education Patient Instructions Indication:Skin rash Start:15-Nov-2018 Instruction Type:Provider Instructions for Treatment How to access health informa tion online Indication:Non-smoker Start:01-Oct-2018 Instruction Type:Patient Education How to access health informa tion online - Detail Indication:Non-smoker Start:01-Oct-2018 Instruction Type:Patient Education Patient Instructions Indication:Non-smoker Start:01-Oct-2018 Instruction Type:Provider Instructions for Treatment How to access health informa tion online Indication:Non-smoker Start:09-Sep-2018 Instruction Type:Patient Education How to access health informa tion online - Detail Indication:Non-smoker Start:09-Sep-2018 Instruction Type:Patient Education Patient Instructions Indication:Elevated blood pressure reading Start:09-Sep-2018 Instruction Type:Provider Instructions for Treatment How to access health informa tion online Indication:BMI between 19-24,adult Start:12-Aug-2018 Instruction Type:Patient Education How to access health informa tion online - Detail Indication:BMI between 19-24,adult Start:12-Aug-2018 Instruction Type:Patient Education Patient Instructions Indication:Abdominal pain Start:12-Aug-2018 Instruction Type:Provider Instructions for Treatment How to access health informa tion online Indication:Non-smoker Start:28-May-2018 Instruction Type:Patient Education How to access health informa tion online - Detail Indication:Non-smoker Start:28-May-2018 Instruction Type:Patient Education Patient Instructions Indication:Non-smoker Start:28-May-2018 Instruction Type:Provider Instructions for Treatment How to access health informa tion online Indication:Non-smoker Start:14-Jul-2017 Instruction Type:Patient Education How to access health informa tion online - Detail Indication:Non-smoker Start:14-Jul-2017 Instruction Type:Patient Education Patient Instructions Indication:Non-smoker Start:14-Jul-2017 Instruction Type:Provider Instructions for Treatment How to access health informa tion online Indication:Non-smoker Start:08-May-2017 Instruction Type:Patient Education How to access health informa tion online - Detail Indication:Non-smoker Start:08-May-2017 Instruction Type:Patient Education Patient Instructions Indication:Non-smoker Start:08-May-2017 Instruction Type:Provider Instructions for Treatment How to access health informa tion online Indication:Non-smoker Start:22-Apr-2017 Instruction Type:Patient Education How to access health informa tion online - Detail Indication:Non-smoker Start:22-Apr-2017 Instruction Type:Patient Education Patient Instructions Indication:Non-smoker Start:22-Apr-2017 Instruction Type:Provider Instructions for Treatment How to access health informa tion online Indication:BMI less than 19,adult Start:14-Nov-2016 Instruction Type:Patient Education How to access health informa tion online - Detail Indication:BMI less than 19,adult Start:14-Nov-2016 Instruction Type:Patient Education Patient Instructions Indication:BMI less than 19,adult Start:14-Nov-2016 Instruction Type:Provider Instructions for Treatment Patient Instructions Indication:Benign essential hypertension Start:08-Sep-2016 Instruction Type:Provider Instructions for Treatment How to access health informa tion online Indication:Non-smoker Start:28-Aug-2016 Instruction Type:Patient Education How to access health informa tion online - Detail Indication:Non-smoker Start:28-Aug-2016 Instruction Type:Patient Education Patient Instructions Indication:Non-smoker Start:28-Aug-2016 Instruction Type:Provider Instructions for Treatment How to access health informa tion online Indication:BMI between 19-24,adult Start:24-Apr-2016 Instruction Type:Patient Education How to access health informa tion online - Detail Indication:BMI between 19-24,adult Start:24-Apr-2016 Instruction Type:Patient Education Patient Instructions Indication:BMI between 19-24,adult Start:24-Apr-2016 Instruction Type:Provider Instructions for Treatment Patient Instructions 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.) Start:02-Jul-2015 Instruction Type:Provider Instructions for Treatment How to access health informa tion online Indication:Anxiety Start:02-Jul-2015 Instruction Type:Patient Education How to access health informa tion online - Detail Indication:Anxiety Start:02-Jul-2015 Instruction Type:Patient Education Patient Instructions Indication:Anxiety Start:27-Nov-2011 Instruction Type:Provider Instructions for Treatment [facility]; [facility] Work Phone: Instructions* Name Dates Details Patient Instructions Indication:BMI less than 19,adult Start:14-Mar-2021 Instruction Type:Provider Instructions for Treatment How to Access Health Informa tion Online using Patient Portal and [employer]rd [employer] Apps Indication:BMI less than 19,adult Start:14-Mar-2021 Instruction Type:Patient Education Patient Instructions Indication:Non-smoker Start:11-Feb-2021 Instruction Type:Provider Instructions for Treatment How to Access Health Informa tion Online using Patient Portal and [employer]rd [employer] Apps Indication:Non-smoker Start:11-Feb-2021 Instruction Type:Patient Education Patient Instructions Indication:BMI less than 19,adult Start:02-Nov-2020 Instruction Type:Provider Instructions for Treatment How to Access Health Informa tion Online using Patient Portal and [employer] Apps Indication:BMI less than 19,adult Start:02-Nov-2020 Instruction Type:Patient Education Patient Instructions Indication:BMI less than 19,adult Start:25-Oct-2020 Instruction Type:Provider Instructions for Treatment How to Access Health Informa tion Online using Patient Portal and [employer]rd [employer] Apps Indication:BMI less than 19,adult Start:25-Oct-2020 Instruction Type:Patient Education Patient Instructions Indication:BMI less than 19,adult Start:22-Oct-2020 Instruction Type:Provider Instructions for Treatment How to Access Health Informa tion Online using Patient Portal and [employer] Apps Indication:BMI less than 19,adult Start:22-Oct-2020 Instruction Type:Patient Education How to Access Health Informa tion Online using Patient Portal and [employer] Apps Indication:Non-smoker Start:08-Aug-2020 Instruction Type:Patient Education Patient Instructions Indication:Non-smoker Start:08-Aug-2020 Instruction Type:Provider Instructions for Treatment How to Access Health Informa tion Online using Patient Portal and [employer] Apps Indication:Non-smoker Start:09-May-2020 Instruction Type:Patient Education Patient Instructions Indication:Non-smoker Start:09-May-2020 Instruction Type:Provider Instructions for Treatment Patient Instructions Indication:[place] Start:04-May-2020 Instruction Type:Provider Instructions for Treatment How to Access Health Informa tion Online using Patient Portal and [employer] Apps Indication:Non-smoker Start:06-Apr-2020 Instruction Type:Patient Education Patient Instructions Indication:Non-smoker Start:06-Apr-2020 Instruction Type:Provider Instructions for Treatment How to access health informa tion online Indication:Non-smoker Start:13-Oct-2019 Instruction Type:Patient Education How to access health informa tion online - Detail Indication:Non-smoker Start:13-Oct-2019 Instruction Type:Patient Education Patient Instructions Indication:Non-smoker Start:13-Oct-2019 Instruction Type:Provider Instructions for Treatment How to access health informa tion online Indication:Non-smoker Start:03-Oct-2019 Instruction Type:Patient Education How to access health informa tion online - Detail Indication:Non-smoker Start:03-Oct-2019 Instruction Type:Patient Education Patient Instructions Indication:Non-smoker Start:03-Oct-2019 Instruction Type:Provider Instructions for Treatment How to access health informa tion online Indication:BMI less than 19,adult Start:17-Aug-2019 Instruction Type:Patient Education How to access health informa tion online - Detail Indication:BMI less than 19,adult Start:17-Aug-2019 Instruction Type:Patient Education Patient Instructions Indication:BMI less than 19,adult Start:17-Aug-2019 Instruction Type:Provider Instructions for Treatment How to access health informa tion online Indication:Non-smoker Start:15-Nov-2018 Instruction Type:Patient Education How to access health informa tion online - Detail Indication:Non-smoker Start:15-Nov-2018 Instruction Type:Patient Education Patient Instructions Indication:Skin rash Start:15-Nov-2018 Instruction Type:Provider Instructions for Treatment How to access health informa tion online Indication:Non-smoker Start:01-Oct-2018 Instruction Type:Patient Education How to access health informa tion online - Detail Indication:Non-smoker Start:01-Oct-2018 Instruction Type:Patient Education Patient Instructions Indication:Non-smoker Start:01-Oct-2018 Instruction Type:Provider Instructions for Treatment How to access health informa tion online Indication:Non-smoker Start:09-Sep-2018 Instruction Type:Patient Education How to access health informa tion online - Detail Indication:Non-smoker Start:09-Sep-2018 Instruction Type:Patient Education Patient Instructions Indication:Elevated blood pressure reading Start:09-Sep-2018 Instruction Type:Provider Instructions for Treatment How to access health informa tion online Indication:BMI between 19-24,adult Start:12-Aug-2018 Instruction Type:Patient Education How to access health informa tion online - Detail Indication:BMI between 19-24,adult Start:12-Aug-2018 Instruction Type:Patient Education Patient Instructions Indication:Abdominal pain Start:12-Aug-2018 Instruction Type:Provider Instructions for Treatment How to access health informa tion online Indication:Non-smoker Start:28-May-2018 Instruction Type:Patient Education How to access health informa tion online - Detail Indication:Non-smoker Start:28-May-2018 Instruction Type:Patient Education Patient Instructions Indication:Non-smoker Start:28-May-2018 Instruction Type:Provider Instructions for Treatment How to access health informa tion online Indication:Non-smoker Start:14-Jul-2017 Instruction Type:Patient Education How to access health informa tion online - Detail Indication:Non-smoker Start:14-Jul-2017 Instruction Type:Patient Education Patient Instructions Indication:Non-smoker Start:14-Jul-2017 Instruction Type:Provider Instructions for Treatment How to access health informa tion online Indication:Non-smoker Start:08-May-2017 Instruction Type:Patient Education How to access health informa tion online - Detail Indication:Non-smoker Start:08-May-2017 Instruction Type:Patient Education Patient Instructions Indication:Non-smoker Start:08-May-2017 Instruction Type:Provider Instructions for Treatment How to access health informa tion online Indication:Non-smoker Start:22-Apr-2017 Instruction Type:Patient Education How to access health informa tion online - Detail Indication:Non-smoker Start:22-Apr-2017 Instruction Type:Patient Education Patient Instructions Indication:Non-smoker Start:22-Apr-2017 Instruction Type:Provider Instructions for Treatment How to access health informa tion online Indication:BMI less than 19,adult Start:14-Nov-2016 Instruction Type:Patient Education How to access health informa tion online - Detail Indication:BMI less than 19,adult Start:14-Nov-2016 Instruction Type:Patient Education Patient Instructions Indication:BMI less than 19,adult Start:14-Nov-2016 Instruction Type:Provider Instructions for Treatment Patient Instructions Indication:Benign essential hypertension Start:08-Sep-2016 Instruction Type:Provider Instructions for Treatment How to access health informa tion online Indication:Non-smoker Start:28-Aug-2016 Instruction Type:Patient Education How to access health informa tion online - Detail Indication:Non-smoker Start:28-Aug-2016 Instruction Type:Patient Education Patient Instructions Indication:Non-smoker Start:28-Aug-2016 Instruction Type:Provider Instructions for Treatment How to access health informa tion online Indication:BMI between 19-24,adult Start:24-Apr-2016 Instruction Type:Patient Education How to access health informa tion online - Detail Indication:BMI between 19-24,adult Start:24-Apr-2016 Instruction Type:Patient Education Patient Instructions Indication:BMI between 19-24,adult Start:24-Apr-2016 Instruction Type:Provider Instructions for Treatment Patient Instructions 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.) Start:02-Jul-2015 Instruction Type:Provider Instructions for Treatment How to access health informa tion online Indication:Anxiety Start:02-Jul-2015 Instruction Type:Patient Education How to access health informa tion online - Detail Indication:Anxiety Start:02-Jul-2015 Instruction Type:Patient Education Patient Instructions Indication:Anxiety Start:27-Nov-2011 Instruction Type:Provider Instructions for Treatment [facility]; [facility] Work Phone: Instructions* Name Dates Details Patient Instructions Indication:BMI less than 19,adult Start:15-Apr-2021 Instruction Type:Provider Instructions for Treatment How to Access Health Informa tion Online using Patient Portal and [employer]rd [employer] Apps Indication:BMI less than 19,adult Start:15-Apr-2021 Instruction Type:Patient Education Patient Instructions Indication:BMI less than 19,adult Start:14-Mar-2021 Instruction Type:Provider Instructions for Treatment How to Access Health Informa tion Online using Patient Portal and [employer]rd [employer] Apps Indication:BMI less than 19,adult Start:14-Mar-2021 Instruction Type:Patient Education Patient Instructions Indication:Non-smoker Start:11-Feb-2021 Instruction Type:Provider Instructions for Treatment How to Access Health Informa tion Online using Patient Portal and [employer]rd [employer] Apps Indication:Non-smoker Start:11-Feb-2021 Instruction Type:Patient Education Patient Instructions Indication:BMI less than 19,adult Start:02-Nov-2020 Instruction Type:Provider Instructions for Treatment How to Access Health Informa tion Online using Patient Portal and [employer]rd [employer] Apps Indication:BMI less than 19,adult Start:02-Nov-2020 Instruction Type:Patient Education Patient Instructions Indication:BMI less than 19,adult Start:25-Oct-2020 Instruction Type:Provider Instructions for Treatment How to Access Health Informa tion Online using Patient Portal and [employer]rd [employer] Apps Indication:BMI less than 19,adult Start:25-Oct-2020 Instruction Type:Patient Education Patient Instructions Indication:BMI less than 19,adult Start:22-Oct-2020 Instruction Type:Provider Instructions for Treatment How to Access Health Informa tion Online using Patient Portal and [employer] Apps Indication:BMI less than 19,adult Start:22-Oct-2020 Instruction Type:Patient Education How to Access Health Informa tion Online using Patient Portal and [employer]rd [employer] Apps Indication:Non-smoker Start:08-Aug-2020 Instruction Type:Patient Education Patient Instructions Indication:Non-smoker Start:08-Aug-2020 Instruction Type:Provider Instructions for Treatment How to Access Health Informa tion Online using Patient Portal and [employer]rd [employer] Apps Indication:Non-smoker Start:09-May-2020 Instruction Type:Patient Education Patient Instructions Indication:Non-smoker Start:09-May-2020 Instruction Type:Provider Instructions for Treatment Patient Instructions Indication:[place] Start:04-May-2020 Instruction Type:Provider Instructions for Treatment How to Access Health Informa tion Online using Patient Portal and [employer]rd [employer] Apps Indication:Non-smoker Start:06-Apr-2020 Instruction Type:Patient Education Patient Instructions Indication:Non-smoker Start:06-Apr-2020 Instruction Type:Provider Instructions for Treatment How to access health informa tion online Indication:Non-smoker Start:13-Oct-2019 Instruction Type:Patient Education How to access health informa tion online - Detail Indication:Non-smoker Start:13-Oct-2019 Instruction Type:Patient Education Patient Instructions Indication:Non-smoker Start:13-Oct-2019 Instruction Type:Provider Instructions for Treatment How to access health informa tion online Indication:Non-smoker Start:03-Oct-2019 Instruction Type:Patient Education How to access health informa tion online - Detail Indication:Non-smoker Start:03-Oct-2019 Instruction Type:Patient Education Patient Instructions Indication:Non-smoker Start:03-Oct-2019 Instruction Type:Provider Instructions for Treatment How to access health informa tion online Indication:BMI less than 19,adult Start:17-Aug-2019 Instruction Type:Patient Education How to access health informa tion online - Detail Indication:BMI less than 19,adult Start:17-Aug-2019 Instruction Type:Patient Education Patient Instructions Indication:BMI less than 19,adult Start:17-Aug-2019 Instruction Type:Provider Instructions for Treatment How to access health informa tion online Indication:Non-smoker Start:15-Nov-2018 Instruction Type:Patient Education How to access health informa tion online - Detail Indication:Non-smoker Start:15-Nov-2018 Instruction Type:Patient Education Patient Instructions Indication:Skin rash Start:15-Nov-2018 Instruction Type:Provider Instructions for Treatment How to access health informa tion online Indication:Non-smoker Start:01-Oct-2018 Instruction Type:Patient Education How to access health informa tion online - Detail Indication:Non-smoker Start:01-Oct-2018 Instruction Type:Patient Education Patient Instructions Indication:Non-smoker Start:01-Oct-2018 Instruction Type:Provider Instructions for Treatment How to access health informa tion online Indication:Non-smoker Start:09-Sep-2018 Instruction Type:Patient Education How to access health informa tion online - Detail Indication:Non-smoker Start:09-Sep-2018 Instruction Type:Patient Education Patient Instructions Indication:Elevated blood pressure reading Start:09-Sep-2018 Instruction Type:Provider Instructions for Treatment How to access health informa tion online Indication:BMI between 19-24,adult Start:12-Aug-2018 Instruction Type:Patient Education How to access health informa tion online - Detail Indication:BMI between 19-24,adult Start:12-Aug-2018 Instruction Type:Patient Education Patient Instructions Indication:Abdominal pain Start:12-Aug-2018 Instruction Type:Provider Instructions for Treatment How to access health informa tion online Indication:Non-smoker Start:28-May-2018 Instruction Type:Patient Education How to access health informa tion online - Detail Indication:Non-smoker Start:28-May-2018 Instruction Type:Patient Education Patient Instructions Indication:Non-smoker Start:28-May-2018 Instruction Type:Provider Instructions for Treatment How to access health informa tion online Indication:Non-smoker Start:14-Jul-2017 Instruction Type:Patient Education How to access health informa tion online - Detail Indication:Non-smoker Start:14-Jul-2017 Instruction Type:Patient Education Patient Instructions Indication:Non-smoker Start:14-Jul-2017 Instruction Type:Provider Instructions for Treatment How to access health informa tion online Indication:Non-smoker Start:08-May-2017 Instruction Type:Patient Education How to access health informa tion online - Detail Indication:Non-smoker Start:08-May-2017 Instruction Type:Patient Education Patient Instructions Indication:Non-smoker Start:08-May-2017 Instruction Type:Provider Instructions for Treatment How to access health informa tion online Indication:Non-smoker Start:22-Apr-2017 Instruction Type:Patient Education How to access health informa tion online - Detail Indication:Non-smoker Start:22-Apr-2017 Instruction Type:Patient Education Patient Instructions Indication:Non-smoker Start:22-Apr-2017 Instruction Type:Provider Instructions for Treatment How to access health informa tion online Indication:BMI less than 19,adult Start:14-Nov-2016 Instruction Type:Patient Education How to access health informa tion online - Detail Indication:BMI less than 19,adult Start:14-Nov-2016 Instruction Type:Patient Education Patient Instructions Indication:BMI less than 19,adult Start:14-Nov-2016 Instruction Type:Provider Instructions for Treatment Patient Instructions Indication:Benign essential hypertension Start:08-Sep-2016 Instruction Type:Provider Instructions for Treatment How to access health informa tion online Indication:Non-smoker Start:28-Aug-2016 Instruction Type:Patient Education How to access health informa tion online - Detail Indication:Non-smoker Start:28-Aug-2016 Instruction Type:Patient Education Patient Instructions Indication:Non-smoker Start:28-Aug-2016 Instruction Type:Provider Instructions for Treatment How to access health informa tion online Indication:BMI between 19-24,adult Start:24-Apr-2016 Instruction Type:Patient Education How to access health informa tion online - Detail Indication:BMI between 19-24,adult Start:24-Apr-2016 Instruction Type:Patient Education Patient Instructions Indication:BMI between 19-24,adult Start:24-Apr-2016 Instruction Type:Provider Instructions for Treatment Patient Instructions 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.) Start:02-Jul-2015 Instruction Type:Provider Instructions for Treatment How to access health informa tion online Indication:Anxiety Start:02-Jul-2015 Instruction Type:Patient Education How to access health informa tion online - Detail Indication:Anxiety Start:02-Jul-2015 Instruction Type:Patient Education Patient Instructions Indication:Anxiety Start:27-Nov-2011 Instruction Type:Provider Instructions for Treatment [facility]; [facility] Work Phone: Instructions* Name Dates Details Patient Instructions Indication:BMI less than 19,adult Start:15-Apr-2021 Instruction Type:Provider Instructions for Treatment How to Access Health Informa tion Online using Patient Portal and [employer]rd [employer] Apps Indication:BMI less than 19,adult Start:15-Apr-2021 Instruction Type:Patient Education Patient Instructions Indication:BMI less than 19,adult Start:14-Mar-2021 Instruction Type:Provider Instructions for Treatment How to Access Health Informa tion Online using Patient Portal and [employer]rd [employer] Apps Indication:BMI less than 19,adult Start:14-Mar-2021 Instruction Type:Patient Education Patient Instructions Indication:Non-smoker Start:11-Feb-2021 Instruction Type:Provider Instructions for Treatment How to Access Health Informa tion Online using Patient Portal and [employer]rd [employer] Apps Indication:Non-smoker Start:11-Feb-2021 Instruction Type:Patient Education Patient Instructions Indication:BMI less than 19,adult Start:02-Nov-2020 Instruction Type:Provider Instructions for Treatment How to Access Health Informa tion Online using Patient Portal and [employer]rd [employer] Apps Indication:BMI less than 19,adult Start:02-Nov-2020 Instruction Type:Patient Education Patient Instructions Indication:BMI less than 19,adult Start:25-Oct-2020 Instruction Type:Provider Instructions for Treatment How to Access Health Informa tion Online using Patient Portal and [employer]rd [employer] Apps Indication:BMI less than 19,adult Start:25-Oct-2020 Instruction Type:Patient Education Patient Instructions Indication:BMI less than 19,adult Start:22-Oct-2020 Instruction Type:Provider Instructions for Treatment How to Access Health Informa tion Online using Patient Portal and [employer]rd [employer] Apps Indication:BMI less than 19,adult Start:22-Oct-2020 Instruction Type:Patient Education How to Access Health Informa tion Online using Patient Portal and [employer]rd [employer] Apps Indication:Non-smoker Start:08-Aug-2020 Instruction Type:Patient Education Patient Instructions Indication:Non-smoker Start:08-Aug-2020 Instruction Type:Provider Instructions for Treatment How to Access Health Informa tion Online using Patient Portal and [employer]rd [employer] Apps Indication:Non-smoker Start:09-May-2020 Instruction Type:Patient Education Patient Instructions Indication:Non-smoker Start:09-May-2020 Instruction Type:Provider Instructions for Treatment Patient Instructions Indication:[place] Start:04-May-2020 Instruction Type:Provider Instructions for Treatment How to Access Health Informa tion Online using Patient Portal and [employer]rd [employer] Apps Indication:Non-smoker Start:06-Apr-2020 Instruction Type:Patient Education Patient Instructions Indication:Non-smoker Start:06-Apr-2020 Instruction Type:Provider Instructions for Treatment How to access health informa tion online Indication:Non-smoker Start:13-Oct-2019 Instruction Type:Patient Education How to access health informa tion online - Detail Indication:Non-smoker Start:13-Oct-2019 Instruction Type:Patient Education Patient Instructions Indication:Non-smoker Start:13-Oct-2019 Instruction Type:Provider Instructions for Treatment How to access health informa tion online Indication:Non-smoker Start:03-Oct-2019 Instruction Type:Patient Education How to access health informa tion online - Detail Indication:Non-smoker Start:03-Oct-2019 Instruction Type:Patient Education Patient Instructions Indication:Non-smoker Start:03-Oct-2019 Instruction Type:Provider Instructions for Treatment How to access health informa tion online Indication:BMI less than 19,adult Start:17-Aug-2019 Instruction Type:Patient Education How to access health informa tion online - Detail Indication:BMI less than 19,adult Start:17-Aug-2019 Instruction Type:Patient Education Patient Instructions Indication:BMI less than 19,adult Start:17-Aug-2019 Instruction Type:Provider Instructions for Treatment How to access health informa tion online Indication:Non-smoker Start:15-Nov-2018 Instruction Type:Patient Education How to access health informa tion online - Detail Indication:Non-smoker Start:15-Nov-2018 Instruction Type:Patient Education Patient Instructions Indication:Skin rash Start:15-Nov-2018 Instruction Type:Provider Instructions for Treatment How to access health informa tion online Indication:Non-smoker Start:01-Oct-2018 Instruction Type:Patient Education How to access health informa tion online - Detail Indication:Non-smoker Start:01-Oct-2018 Instruction Type:Patient Education Patient Instructions Indication:Non-smoker Start:01-Oct-2018 Instruction Type:Provider Instructions for Treatment How to access health informa tion online Indication:Non-smoker Start:09-Sep-2018 Instruction Type:Patient Education How to access health informa tion online - Detail Indication:Non-smoker Start:09-Sep-2018 Instruction Type:Patient Education Patient Instructions Indication:Elevated blood pressure reading Start:09-Sep-2018 Instruction Type:Provider Instructions for Treatment How to access health informa tion online Indication:BMI between 19-24,adult Start:12-Aug-2018 Instruction Type:Patient Education How to access health informa tion online - Detail Indication:BMI between 19-24,adult Start:12-Aug-2018 Instruction Type:Patient Education Patient Instructions Indication:Abdominal pain Start:12-Aug-2018 Instruction Type:Provider Instructions for Treatment How to access health informa tion online Indication:Non-smoker Start:28-May-2018 Instruction Type:Patient Education How to access health informa tion online - Detail Indication:Non-smoker Start:28-May-2018 Instruction Type:Patient Education Patient Instructions Indication:Non-smoker Start:28-May-2018 Instruction Type:Provider Instructions for Treatment How to access health informa tion online Indication:Non-smoker Start:14-Jul-2017 Instruction Type:Patient Education How to access health informa tion online - Detail Indication:Non-smoker Start:14-Jul-2017 Instruction Type:Patient Education Patient Instructions Indication:Non-smoker Start:14-Jul-2017 Instruction Type:Provider Instructions for Treatment How to access health informa tion online Indication:Non-smoker Start:08-May-2017 Instruction Type:Patient Education How to access health informa tion online - Detail Indication:Non-smoker Start:08-May-2017 Instruction Type:Patient Education Patient Instructions Indication:Non-smoker Start:08-May-2017 Instruction Type:Provider Instructions for Treatment How to access health informa tion online Indication:Non-smoker Start:22-Apr-2017 Instruction Type:Patient Education How to access health informa tion online - Detail Indication:Non-smoker Start:22-Apr-2017 Instruction Type:Patient Education Patient Instructions Indication:Non-smoker Start:22-Apr-2017 Instruction Type:Provider Instructions for Treatment How to access health informa tion online Indication:BMI less than 19,adult Start:14-Nov-2016 Instruction Type:Patient Education How to access health informa tion online - Detail Indication:BMI less than 19,adult Start:14-Nov-2016 Instruction Type:Patient Education Patient Instructions Indication:BMI less than 19,adult Start:14-Nov-2016 Instruction Type:Provider Instructions for Treatment Patient Instructions Indication:Benign essential hypertension Start:08-Sep-2016 Instruction Type:Provider Instructions for Treatment How to access health informa tion online Indication:Non-smoker Start:28-Aug-2016 Instruction Type:Patient Education How to access health informa tion online - Detail Indication:Non-smoker Start:28-Aug-2016 Instruction Type:Patient Education Patient Instructions Indication:Non-smoker Start:28-Aug-2016 Instruction Type:Provider Instructions for Treatment How to access health informa tion online Indication:BMI between 19-24,adult Start:24-Apr-2016 Instruction Type:Patient Education How to access health informa tion online - Detail Indication:BMI between 19-24,adult Start:24-Apr-2016 Instruction Type:Patient Education Patient Instructions Indication:BMI between 19-24,adult Start:24-Apr-2016 Instruction Type:Provider Instructions for Treatment Patient Instructions 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.) Start:02-Jul-2015 Instruction Type:Provider Instructions for Treatment How to access health informa tion online Indication:Anxiety Start:02-Jul-2015 Instruction Type:Patient Education How to access health informa tion online - Detail Indication:Anxiety Start:02-Jul-2015 Instruction Type:Patient Education Patient Instructions Indication:Anxiety Start:27-Nov-2011 Instruction Type:Provider Instructions for Treatment [facility]; [facility] Work Phone: Instructions* Name Dates Details Patient Instructions Indication:BMI less than 19,adult Start:15-Apr-2021 Instruction Type:Provider Instructions for Treatment How to Access Health Informa tion Online using Patient Portal and [employer]rd [employer] Apps Indication:BMI less than 19,adult Start:15-Apr-2021 Instruction Type:Patient Education Patient Instructions Indication:BMI less than 19,adult Start:14-Mar-2021 Instruction Type:Provider Instructions for Treatment How to Access Health Informa tion Online using Patient Portal and [employer]rd [employer] Apps Indication:BMI less than 19,adult Start:14-Mar-2021 Instruction Type:Patient Education Patient Instructions Indication:Non-smoker Start:11-Feb-2021 Instruction Type:Provider Instructions for Treatment How to Access Health Informa tion Online using Patient Portal and [employer]rd [employer] Apps Indication:Non-smoker Start:11-Feb-2021 Instruction Type:Patient Education Patient Instructions Indication:BMI less than 19,adult Start:02-Nov-2020 Instruction Type:Provider Instructions for Treatment How to Access Health Informa tion Online using Patient Portal and [employer]rd [employer] Apps Indication:BMI less than 19,adult Start:02-Nov-2020 Instruction Type:Patient Education Patient Instructions Indication:BMI less than 19,adult Start:25-Oct-2020 Instruction Type:Provider Instructions for Treatment How to Access Health Informa tion Online using Patient Portal and [employer]rd [employer] Apps Indication:BMI less than 19,adult Start:25-Oct-2020 Instruction Type:Patient Education Patient Instructions Indication:BMI less than 19,adult Start:22-Oct-2020 Instruction Type:Provider Instructions for Treatment How to Access Health Informa tion Online using Patient Portal and [employer] Apps Indication:BMI less than 19,adult Start:22-Oct-2020 Instruction Type:Patient Education How to Access Health Informa tion Online using Patient Portal and [employer] Apps Indication:Non-smoker Start:08-Aug-2020 Instruction Type:Patient Education Patient Instructions Indication:Non-smoker Start:08-Aug-2020 Instruction Type:Provider Instructions for Treatment How to Access Health Informa tion Online using Patient Portal and [employer]rd [employer] Apps Indication:Non-smoker Start:09-May-2020 Instruction Type:Patient Education Patient Instructions Indication:Non-smoker Start:09-May-2020 Instruction Type:Provider Instructions for Treatment Patient Instructions Indication:[place] Start:04-May-2020 Instruction Type:Provider Instructions for Treatment How to Access Health Informa tion Online using Patient Portal and [employer] Apps Indication:Non-smoker Start:06-Apr-2020 Instruction Type:Patient Education Patient Instructions Indication:Non-smoker Start:06-Apr-2020 Instruction Type:Provider Instructions for Treatment How to access health informa tion online Indication:Non-smoker Start:13-Oct-2019 Instruction Type:Patient Education How to access health informa tion online - Detail Indication:Non-smoker Start:13-Oct-2019 Instruction Type:Patient Education Patient Instructions Indication:Non-smoker Start:13-Oct-2019 Instruction Type:Provider Instructions for Treatment How to access health informa tion online Indication:Non-smoker Start:03-Oct-2019 Instruction Type:Patient Education How to access health informa tion online - Detail Indication:Non-smoker Start:03-Oct-2019 Instruction Type:Patient Education Patient Instructions Indication:Non-smoker Start:03-Oct-2019 Instruction Type:Provider Instructions for Treatment How to access health informa tion online Indication:BMI less than 19,adult Start:17-Aug-2019 Instruction Type:Patient Education How to access health informa tion online - Detail Indication:BMI less than 19,adult Start:17-Aug-2019 Instruction Type:Patient Education Patient Instructions Indication:BMI less than 19,adult Start:17-Aug-2019 Instruction Type:Provider Instructions for Treatment How to access health informa tion online Indication:Non-smoker Start:15-Nov-2018 Instruction Type:Patient Education How to access health informa tion online - Detail Indication:Non-smoker Start:15-Nov-2018 Instruction Type:Patient Education Patient Instructions Indication:Skin rash Start:15-Nov-2018 Instruction Type:Provider Instructions for Treatment How to access health informa tion online Indication:Non-smoker Start:01-Oct-2018 Instruction Type:Patient Education How to access health informa tion online - Detail Indication:Non-smoker Start:01-Oct-2018 Instruction Type:Patient Education Patient Instructions Indication:Non-smoker Start:01-Oct-2018 Instruction Type:Provider Instructions for Treatment How to access health informa tion online Indication:Non-smoker Start:09-Sep-2018 Instruction Type:Patient Education How to access health informa tion online - Detail Indication:Non-smoker Start:09-Sep-2018 Instruction Type:Patient Education Patient Instructions Indication:Elevated blood pressure reading Start:09-Sep-2018 Instruction Type:Provider Instructions for Treatment How to access health informa tion online Indication:BMI between 19-24,adult Start:12-Aug-2018 Instruction Type:Patient Education How to access health informa tion online - Detail Indication:BMI between 19-24,adult Start:12-Aug-2018 Instruction Type:Patient Education Patient Instructions Indication:Abdominal pain Start:12-Aug-2018 Instruction Type:Provider Instructions for Treatment How to access health informa tion online Indication:Non-smoker Start:28-May-2018 Instruction Type:Patient Education How to access health informa tion online - Detail Indication:Non-smoker Start:28-May-2018 Instruction Type:Patient Education Patient Instructions Indication:Non-smoker Start:28-May-2018 Instruction Type:Provider Instructions for Treatment How to access health informa tion online Indication:Non-smoker Start:14-Jul-2017 Instruction Type:Patient Education How to access health informa tion online - Detail Indication:Non-smoker Start:14-Jul-2017 Instruction Type:Patient Education Patient Instructions Indication:Non-smoker Start:14-Jul-2017 Instruction Type:Provider Instructions for Treatment How to access health informa tion online Indication:Non-smoker Start:08-May-2017 Instruction Type:Patient Education How to access health informa tion online - Detail Indication:Non-smoker Start:08-May-2017 Instruction Type:Patient Education Patient Instructions Indication:Non-smoker Start:08-May-2017 Instruction Type:Provider Instructions for Treatment How to access health informa tion online Indication:Non-smoker Start:22-Apr-2017 Instruction Type:Patient Education How to access health informa tion online - Detail Indication:Non-smoker Start:22-Apr-2017 Instruction Type:Patient Education Patient Instructions Indication:Non-smoker Start:22-Apr-2017 Instruction Type:Provider Instructions for Treatment How to access health informa tion online Indication:BMI less than 19,adult Start:14-Nov-2016 Instruction Type:Patient Education How to access health informa tion online - Detail Indication:BMI less than 19,adult Start:14-Nov-2016 Instruction Type:Patient Education Patient Instructions Indication:BMI less than 19,adult Start:14-Nov-2016 Instruction Type:Provider Instructions for Treatment Patient Instructions Indication:Benign essential hypertension Start:08-Sep-2016 Instruction Type:Provider Instructions for Treatment How to access health informa tion online Indication:Non-smoker Start:28-Aug-2016 Instruction Type:Patient Education How to access health informa tion online - Detail Indication:Non-smoker Start:28-Aug-2016 Instruction Type:Patient Education Patient Instructions Indication:Non-smoker Start:28-Aug-2016 Instruction Type:Provider Instructions for Treatment How to access health informa tion online Indication:BMI between 19-24,adult Start:24-Apr-2016 Instruction Type:Patient Education How to access health informa tion online - Detail Indication:BMI between 19-24,adult Start:24-Apr-2016 Instruction Type:Patient Education Patient Instructions Indication:BMI between 19-24,adult Start:24-Apr-2016 Instruction Type:Provider Instructions for Treatment Patient Instructions 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.) Start:02-Jul-2015 Instruction Type:Provider Instructions for Treatment How to access health informa tion online Indication:Anxiety Start:02-Jul-2015 Instruction Type:Patient Education How to access health informa tion online - Detail Indication:Anxiety Start:02-Jul-2015 Instruction Type:Patient Education Patient Instructions Indication:Anxiety Start:27-Nov-2011 Instruction Type:Provider Instructions for Treatment [facility]; [facility] Work Phone: Instructions* Name Dates Details Patient Instructions Indication:BMI less than 19,adult Start:15-Apr-2021 Instruction Type:Provider Instructions for Treatment How to Access Health Informa tion Online using Patient Portal and [employer]rd [employer] Apps Indication:BMI less than 19,adult Start:15-Apr-2021 Instruction Type:Patient Education Patient Instructions Indication:BMI less than 19,adult Start:14-Mar-2021 Instruction Type:Provider Instructions for Treatment How to Access Health Informa tion Online using Patient Portal and [employer]rd [employer] Apps Indication:BMI less than 19,adult Start:14-Mar-2021 Instruction Type:Patient Education Patient Instructions Indication:Non-smoker Start:11-Feb-2021 Instruction Type:Provider Instructions for Treatment How to Access Health Informa tion Online using Patient Portal and [employer]rd [employer] Apps Indication:Non-smoker Start:11-Feb-2021 Instruction Type:Patient Education Patient Instructions Indication:BMI less than 19,adult Start:02-Nov-2020 Instruction Type:Provider Instructions for Treatment How to Access Health Informa tion Online using Patient Portal and [employer]rd [employer] Apps Indication:BMI less than 19,adult Start:02-Nov-2020 Instruction Type:Patient Education Patient Instructions Indication:BMI less than 19,adult Start:25-Oct-2020 Instruction Type:Provider Instructions for Treatment How to Access Health Informa tion Online using Patient Portal and [employer]rd [employer] Apps Indication:BMI less than 19,adult Start:25-Oct-2020 Instruction Type:Patient Education Patient Instructions Indication:BMI less than 19,adult Start:22-Oct-2020 Instruction Type:Provider Instructions for Treatment How to Access Health Informa tion Online using Patient Portal and [employer] Apps Indication:BMI less than 19,adult Start:22-Oct-2020 Instruction Type:Patient Education How to Access Health Informa tion Online using Patient Portal and [employer]rd [employer] Apps Indication:Non-smoker Start:08-Aug-2020 Instruction Type:Patient Education Patient Instructions Indication:Non-smoker Start:08-Aug-2020 Instruction Type:Provider Instructions for Treatment How to Access Health Informa tion Online using Patient Portal and [employer]rd [employer] Apps Indication:Non-smoker Start:09-May-2020 Instruction Type:Patient Education Patient Instructions Indication:Non-smoker Start:09-May-2020 Instruction Type:Provider Instructions for Treatment Patient Instructions Indication:[place] Start:04-May-2020 Instruction Type:Provider Instructions for Treatment How to Access Health Informa tion Online using Patient Portal and [employer]rd [employer] Apps Indication:Non-smoker Start:06-Apr-2020 Instruction Type:Patient Education Patient Instructions Indication:Non-smoker Start:06-Apr-2020 Instruction Type:Provider Instructions for Treatment How to access health informa tion online Indication:Non-smoker Start:13-Oct-2019 Instruction Type:Patient Education How to access health informa tion online - Detail Indication:Non-smoker Start:13-Oct-2019 Instruction Type:Patient Education Patient Instructions Indication:Non-smoker Start:13-Oct-2019 Instruction Type:Provider Instructions for Treatment How to access health informa tion online Indication:Non-smoker Start:03-Oct-2019 Instruction Type:Patient Education How to access health informa tion online - Detail Indication:Non-smoker Start:03-Oct-2019 Instruction Type:Patient Education Patient Instructions Indication:Non-smoker Start:03-Oct-2019 Instruction Type:Provider Instructions for Treatment How to access health informa tion online Indication:BMI less than 19,adult Start:17-Aug-2019 Instruction Type:Patient Education How to access health informa tion online - Detail Indication:BMI less than 19,adult Start:17-Aug-2019 Instruction Type:Patient Education Patient Instructions Indication:BMI less than 19,adult Start:17-Aug-2019 Instruction Type:Provider Instructions for Treatment How to access health informa tion online Indication:Non-smoker Start:15-Nov-2018 Instruction Type:Patient Education How to access health informa tion online - Detail Indication:Non-smoker Start:15-Nov-2018 Instruction Type:Patient Education Patient Instructions Indication:Skin rash Start:15-Nov-2018 Instruction Type:Provider Instructions for Treatment How to access health informa tion online Indication:Non-smoker Start:01-Oct-2018 Instruction Type:Patient Education How to access health informa tion online - Detail Indication:Non-smoker Start:01-Oct-2018 Instruction Type:Patient Education Patient Instructions Indication:Non-smoker Start:01-Oct-2018 Instruction Type:Provider Instructions for Treatment How to access health informa tion online Indication:Non-smoker Start:09-Sep-2018 Instruction Type:Patient Education How to access health informa tion online - Detail Indication:Non-smoker Start:09-Sep-2018 Instruction Type:Patient Education Patient Instructions Indication:Elevated blood pressure reading Start:09-Sep-2018 Instruction Type:Provider Instructions for Treatment How to access health informa tion online Indication:BMI between 19-24,adult Start:12-Aug-2018 Instruction Type:Patient Education How to access health informa tion online - Detail Indication:BMI between 19-24,adult Start:12-Aug-2018 Instruction Type:Patient Education Patient Instructions Indication:Abdominal pain Start:12-Aug-2018 Instruction Type:Provider Instructions for Treatment How to access health informa tion online Indication:Non-smoker Start:28-May-2018 Instruction Type:Patient Education How to access health informa tion online - Detail Indication:Non-smoker Start:28-May-2018 Instruction Type:Patient Education Patient Instructions Indication:Non-smoker Start:28-May-2018 Instruction Type:Provider Instructions for Treatment How to access health informa tion online Indication:Non-smoker Start:14-Jul-2017 Instruction Type:Patient Education How to access health informa tion online - Detail Indication:Non-smoker Start:14-Jul-2017 Instruction Type:Patient Education Patient Instructions Indication:Non-smoker Start:14-Jul-2017 Instruction Type:Provider Instructions for Treatment How to access health informa tion online Indication:Non-smoker Start:08-May-2017 Instruction Type:Patient Education How to access health informa tion online - Detail Indication:Non-smoker Start:08-May-2017 Instruction Type:Patient Education Patient Instructions Indication:Non-smoker Start:08-May-2017 Instruction Type:Provider Instructions for Treatment How to access health informa tion online Indication:Non-smoker Start:22-Apr-2017 Instruction Type:Patient Education How to access health informa tion online - Detail Indication:Non-smoker Start:22-Apr-2017 Instruction Type:Patient Education Patient Instructions Indication:Non-smoker Start:22-Apr-2017 Instruction Type:Provider Instructions for Treatment How to access health informa tion online Indication:BMI less than 19,adult Start:14-Nov-2016 Instruction Type:Patient Education How to access health informa tion online - Detail Indication:BMI less than 19,adult Start:14-Nov-2016 Instruction Type:Patient Education Patient Instructions Indication:BMI less than 19,adult Start:14-Nov-2016 Instruction Type:Provider Instructions for Treatment Patient Instructions Indication:Benign essential hypertension Start:08-Sep-2016 Instruction Type:Provider Instructions for Treatment How to access health informa tion online Indication:Non-smoker Start:28-Aug-2016 Instruction Type:Patient Education How to access health informa tion online - Detail Indication:Non-smoker Start:28-Aug-2016 Instruction Type:Patient Education Patient Instructions Indication:Non-smoker Start:28-Aug-2016 Instruction Type:Provider Instructions for Treatment How to access health informa tion online Indication:BMI between 19-24,adult Start:24-Apr-2016 Instruction Type:Patient Education How to access health informa tion online - Detail Indication:BMI between 19-24,adult Start:24-Apr-2016 Instruction Type:Patient Education Patient Instructions Indication:BMI between 19-24,adult Start:24-Apr-2016 Instruction Type:Provider Instructions for Treatment Patient Instructions 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.) Start:02-Jul-2015 Instruction Type:Provider Instructions for Treatment How to access health informa tion online Indication:Anxiety Start:02-Jul-2015 Instruction Type:Patient Education How to access health informa tion online - Detail Indication:Anxiety Start:02-Jul-2015 Instruction Type:Patient Education Patient Instructions Indication:Anxiety Start:27-Nov-2011 Instruction Type:Provider Instructions for Treatment [facility]; [facility] Work Phone: Instructions* Name Dates Details Patient Instructions Indication:BMI less than 19,adult Start:12-Dec-2021 Instruction Type:Provider Instructions for Treatment How to Access Health Informa tion Online using Patient Portal and [employer] Apps Indication:BMI less than 19,adult Start:12-Dec-2021 Instruction Type:Patient Education Patient Instructions Indication:BMI less than 19,adult Start:15-Apr-2021 Instruction Type:Provider Instructions for Treatment How to Access Health Informa tion Online using Patient Portal and [employer] Apps Indication:BMI less than 19,adult Start:15-Apr-2021 Instruction Type:Patient Education Patient Instructions Indication:BMI less than 19,adult Start:14-Mar-2021 Instruction Type:Provider Instructions for Treatment How to Access Health Informa tion Online using Patient Portal and [employer] Apps Indication:BMI less than 19,adult Start:14-Mar-2021 Instruction Type:Patient Education Patient Instructions Indication:Non-smoker Start:11-Feb-2021 Instruction Type:Provider Instructions for Treatment How to Access Health Informa tion Online using Patient Portal and [employer] Apps Indication:Non-smoker Start:11-Feb-2021 Instruction Type:Patient Education Patient Instructions Indication:BMI less than 19,adult Start:02-Nov-2020 Instruction Type:Provider Instructions for Treatment How to Access Health Informa tion Online using Patient Portal and [employer] Apps Indication:BMI less than 19,adult Start:02-Nov-2020 Instruction Type:Patient Education Patient Instructions Indication:BMI less than 19,adult Start:25-Oct-2020 Instruction Type:Provider Instructions for Treatment How to Access Health Informa tion Online using Patient Portal and [employer] Apps Indication:BMI less than 19,adult Start:25-Oct-2020 Instruction Type:Patient Education Patient Instructions Indication:BMI less than 19,adult Start:22-Oct-2020 Instruction Type:Provider Instructions for Treatment How to Access Health Informa tion Online using Patient Portal and [employer] Apps Indication:BMI less than 19,adult Start:22-Oct-2020 Instruction Type:Patient Education How to Access Health Informa tion Online using Patient Portal and [employer] Apps Indication:Non-smoker Start:08-Aug-2020 Instruction Type:Patient Education Patient Instructions Indication:Non-smoker Start:08-Aug-2020 Instruction Type:Provider Instructions for Treatment How to Access Health Informa tion Online using Patient Portal and [employer] Apps Indication:Non-smoker Start:09-May-2020 Instruction Type:Patient Education Patient Instructions Indication:Non-smoker Start:09-May-2020 Instruction Type:Provider Instructions for Treatment Patient Instructions Indication:[place] Start:04-May-2020 Instruction Type:Provider Instructions for Treatment How to Access Health Informa tion Online using Patient Portal and [employer] Apps Indication:Non-smoker Start:06-Apr-2020 Instruction Type:Patient Education Patient Instructions Indication:Non-smoker Start:06-Apr-2020 Instruction Type:Provider Instructions for Treatment How to access health informa tion online Indication:Non-smoker Start:13-Oct-2019 Instruction Type:Patient Education How to access health informa tion online - Detail Indication:Non-smoker Start:13-Oct-2019 Instruction Type:Patient Education Patient Instructions Indication:Non-smoker Start:13-Oct-2019 Instruction Type:Provider Instructions for Treatment How to access health informa tion online Indication:Non-smoker Start:03-Oct-2019 Instruction Type:Patient Education How to access health informa tion online - Detail Indication:Non-smoker Start:03-Oct-2019 Instruction Type:Patient Education Patient Instructions Indication:Non-smoker Start:03-Oct-2019 Instruction Type:Provider Instructions for Treatment How to access health informa tion online Indication:BMI less than 19,adult Start:17-Aug-2019 Instruction Type:Patient Education How to access health informa tion online - Detail Indication:BMI less than 19,adult Start:17-Aug-2019 Instruction Type:Patient Education Patient Instructions Indication:BMI less than 19,adult Start:17-Aug-2019 Instruction Type:Provider Instructions for Treatment How to access health informa tion online Indication:Non-smoker Start:15-Nov-2018 Instruction Type:Patient Education How to access health informa tion online - Detail Indication:Non-smoker Start:15-Nov-2018 Instruction Type:Patient Education Patient Instructions Indication:Skin rash Start:15-Nov-2018 Instruction Type:Provider Instructions for Treatment How to access health informa tion online Indication:Non-smoker Start:01-Oct-2018 Instruction Type:Patient Education How to access health informa tion online - Detail Indication:Non-smoker Start:01-Oct-2018 Instruction Type:Patient Education Patient Instructions Indication:Non-smoker Start:01-Oct-2018 Instruction Type:Provider Instructions for Treatment How to access health informa tion online Indication:Non-smoker Start:09-Sep-2018 Instruction Type:Patient Education How to access health informa tion online - Detail Indication:Non-smoker Start:09-Sep-2018 Instruction Type:Patient Education Patient Instructions Indication:Elevated blood pressure reading Start:09-Sep-2018 Instruction Type:Provider Instructions for Treatment How to access health informa tion online Indication:BMI between 19-24,adult Start:12-Aug-2018 Instruction Type:Patient Education How to access health informa tion online - Detail Indication:BMI between 19-24,adult Start:12-Aug-2018 Instruction Type:Patient Education Patient Instructions Indication:Abdominal pain Start:12-Aug-2018 Instruction Type:Provider Instructions for Treatment How to access health informa tion online Indication:Non-smoker Start:28-May-2018 Instruction Type:Patient Education How to access health informa tion online - Detail Indication:Non-smoker Start:28-May-2018 Instruction Type:Patient Education Patient Instructions Indication:Non-smoker Start:28-May-2018 Instruction Type:Provider Instructions for Treatment How to access health informa tion online Indication:Non-smoker Start:14-Jul-2017 Instruction Type:Patient Education How to access health informa tion online - Detail Indication:Non-smoker Start:14-Jul-2017 Instruction Type:Patient Education Patient Instructions Indication:Non-smoker Start:14-Jul-2017 Instruction Type:Provider Instructions for Treatment How to access health informa tion online Indication:Non-smoker Start:08-May-2017 Instruction Type:Patient Education How to access health informa tion online - Detail Indication:Non-smoker Start:08-May-2017 Instruction Type:Patient Education Patient Instructions Indication:Non-smoker Start:08-May-2017 Instruction Type:Provider Instructions for Treatment How to access health informa tion online Indication:Non-smoker Start:22-Apr-2017 Instruction Type:Patient Education How to access health informa tion online - Detail Indication:Non-smoker Start:22-Apr-2017 Instruction Type:Patient Education Patient Instructions Indication:Non-smoker Start:22-Apr-2017 Instruction Type:Provider Instructions for Treatment How to access health informa tion online Indication:BMI less than 19,adult Start:14-Nov-2016 Instruction Type:Patient Education How to access health informa tion online - Detail Indication:BMI less than 19,adult Start:14-Nov-2016 Instruction Type:Patient Education Patient Instructions Indication:BMI less than 19,adult Start:14-Nov-2016 Instruction Type:Provider Instructions for Treatment Patient Instructions Indication:Benign essential hypertension Start:08-Sep-2016 Instruction Type:Provider Instructions for Treatment How to access health informa tion online Indication:Non-smoker Start:28-Aug-2016 Instruction Type:Patient Education How to access health informa tion online - Detail Indication:Non-smoker Start:28-Aug-2016 Instruction Type:Patient Education Patient Instructions Indication:Non-smoker Start:28-Aug-2016 Instruction Type:Provider Instructions for Treatment How to access health informa tion online Indication:BMI between 19-24,adult Start:24-Apr-2016 Instruction Type:Patient Education How to access health informa tion online - Detail Indication:BMI between 19-24,adult Start:24-Apr-2016 Instruction Type:Patient Education Patient Instructions Indication:BMI between 19-24,adult Start:24-Apr-2016 Instruction Type:Provider Instructions for Treatment Patient Instructions 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.) Start:02-Jul-2015 Instruction Type:Provider Instructions for Treatment How to access health informa tion online Indication:Anxiety Start:02-Jul-2015 Instruction Type:Patient Education How to access health informa tion online - Detail Indication:Anxiety Start:02-Jul-2015 Instruction Type:Patient Education Patient Instructions Indication:Anxiety Start:27-Nov-2011 Instruction Type:Provider Instructions for Treatment [facility]; [facility] Work Phone: Instructions* Name Dates Details cardiovascular counseling Indication:Cardiomyopathy Start:17-Mar-2022 Instruction Type:Provider Instructions for Treatment Patient Instructions Indication:Non-smoker Start:17-Mar-2022 Instruction Type:Provider Instructions for Treatment How to Access Health Informa tion Online using Patient Portal and [employer] Apps Indication:Non-smoker Start:17-Mar-2022 Instruction Type:Patient Education Patient Instructions Indication:BMI less than 19,adult Start:12-Dec-2021 Instruction Type:Provider Instructions for Treatment How to Access Health Informa tion Online using Patient Portal and [employer] Apps Indication:BMI less than 19,adult Start:12-Dec-2021 Instruction Type:Patient Education Patient Instructions Indication:BMI less than 19,adult Start:15-Apr-2021 Instruction Type:Provider Instructions for Treatment How to Access Health Informa tion Online using Patient Portal and [employer] Apps Indication:BMI less than 19,adult Start:15-Apr-2021 Instruction Type:Patient Education Patient Instructions Indication:BMI less than 19,adult Start:14-Mar-2021 Instruction Type:Provider Instructions for Treatment How to Access Health Informa tion Online using Patient Portal and [employer] Apps Indication:BMI less than 19,adult Start:14-Mar-2021 Instruction Type:Patient Education Patient Instructions Indication:Non-smoker Start:11-Feb-2021 Instruction Type:Provider Instructions for Treatment How to Access Health Informa tion Online using Patient Portal and [employer] Apps Indication:Non-smoker Start:11-Feb-2021 Instruction Type:Patient Education Patient Instructions Indication:BMI less than 19,adult Start:02-Nov-2020 Instruction Type:Provider Instructions for Treatment How to Access Health Informa tion Online using Patient Portal and [employer] Apps Indication:BMI less than 19,adult Start:02-Nov-2020 Instruction Type:Patient Education Patient Instructions Indication:BMI less than 19,adult Start:25-Oct-2020 Instruction Type:Provider Instructions for Treatment How to Access Health Informa tion Online using Patient Portal and [employer] Apps Indication:BMI less than 19,adult Start:25-Oct-2020 Instruction Type:Patient Education Patient Instructions Indication:BMI less than 19,adult Start:22-Oct-2020 Instruction Type:Provider Instructions for Treatment How to Access Health Informa tion Online using Patient Portal and [employer] Apps Indication:BMI less than 19,adult Start:22-Oct-2020 Instruction Type:Patient Education How to Access Health Informa tion Online using Patient Portal and [employer] Apps Indication:Non-smoker Start:08-Aug-2020 Instruction Type:Patient Education Patient Instructions Indication:Non-smoker Start:08-Aug-2020 Instruction Type:Provider Instructions for Treatment How to Access Health Informa tion Online using Patient Portal and [employer] Apps Indication:Non-smoker Start:09-May-2020 Instruction Type:Patient Education Patient Instructions Indication:Non-smoker Start:09-May-2020 Instruction Type:Provider Instructions for Treatment Patient Instructions Indication:[place] Start:04-May-2020 Instruction Type:Provider Instructions for Treatment How to Access Health Informa tion Online using Patient Portal and [employer] Apps Indication:Non-smoker Start:06-Apr-2020 Instruction Type:Patient Education Patient Instructions Indication:Non-smoker Start:06-Apr-2020 Instruction Type:Provider Instructions for Treatment How to access health informa tion online Indication:Non-smoker Start:13-Oct-2019 Instruction Type:Patient Education How to access health informa tion online - Detail Indication:Non-smoker Start:13-Oct-2019 Instruction Type:Patient Education Patient Instructions Indication:Non-smoker Start:13-Oct-2019 Instruction Type:Provider Instructions for Treatment How to access health informa tion online Indication:Non-smoker Start:03-Oct-2019 Instruction Type:Patient Education How to access health informa tion online - Detail Indication:Non-smoker Start:03-Oct-2019 Instruction Type:Patient Education Patient Instructions Indication:Non-smoker Start:03-Oct-2019 Instruction Type:Provider Instructions for Treatment How to access health informa tion online Indication:BMI less than 19,adult Start:17-Aug-2019 Instruction Type:Patient Education How to access health informa tion online - Detail Indication:BMI less than 19,adult Start:17-Aug-2019 Instruction Type:Patient Education Patient Instructions Indication:BMI less than 19,adult Start:17-Aug-2019 Instruction Type:Provider Instructions for Treatment How to access health informa tion online Indication:Non-smoker Start:15-Nov-2018 Instruction Type:Patient Education How to access health informa tion online - Detail Indication:Non-smoker Start:15-Nov-2018 Instruction Type:Patient Education Patient Instructions Indication:Skin rash Start:15-Nov-2018 Instruction Type:Provider Instructions for Treatment How to access health informa tion online Indication:Non-smoker Start:01-Oct-2018 Instruction Type:Patient Education How to access health informa tion online - Detail Indication:Non-smoker Start:01-Oct-2018 Instruction Type:Patient Education Patient Instructions Indication:Non-smoker Start:01-Oct-2018 Instruction Type:Provider Instructions for Treatment How to access health informa tion online Indication:Non-smoker Start:09-Sep-2018 Instruction Type:Patient Education How to access health informa tion online - Detail Indication:Non-smoker Start:09-Sep-2018 Instruction Type:Patient Education Patient Instructions Indication:Elevated blood pressure reading Start:09-Sep-2018 Instruction Type:Provider Instructions for Treatment How to access health informa tion online Indication:BMI between 19-24,adult Start:12-Aug-2018 Instruction Type:Patient Education How to access health informa tion online - Detail Indication:BMI between 19-24,adult Start:12-Aug-2018 Instruction Type:Patient Education Patient Instructions Indication:Abdominal pain Start:12-Aug-2018 Instruction Type:Provider Instructions for Treatment How to access health informa tion online Indication:Non-smoker Start:28-May-2018 Instruction Type:Patient Education How to access health informa tion online - Detail Indication:Non-smoker Start:28-May-2018 Instruction Type:Patient Education Patient Instructions Indication:Non-smoker Start:28-May-2018 Instruction Type:Provider Instructions for Treatment How to access health informa tion online Indication:Non-smoker Start:14-Jul-2017 Instruction Type:Patient Education How to access health informa tion online - Detail Indication:Non-smoker Start:14-Jul-2017 Instruction Type:Patient Education Patient Instructions Indication:Non-smoker Start:14-Jul-2017 Instruction Type:Provider Instructions for Treatment How to access health informa tion online Indication:Non-smoker Start:08-May-2017 Instruction Type:Patient Education How to access health informa tion online - Detail Indication:Non-smoker Start:08-May-2017 Instruction Type:Patient Education Patient Instructions Indication:Non-smoker Start:08-May-2017 Instruction Type:Provider Instructions for Treatment How to access health informa tion online Indication:Non-smoker Start:22-Apr-2017 Instruction Type:Patient Education How to access health informa tion online - Detail Indication:Non-smoker Start:22-Apr-2017 Instruction Type:Patient Education Patient Instructions Indication:Non-smoker Start:22-Apr-2017 Instruction Type:Provider Instructions for Treatment How to access health informa tion online Indication:BMI less than 19,adult Start:14-Nov-2016 Instruction Type:Patient Education How to access health informa tion online - Detail Indication:BMI less than 19,adult Start:14-Nov-2016 Instruction Type:Patient Education Patient Instructions Indication:BMI less than 19,adult Start:14-Nov-2016 Instruction Type:Provider Instructions for Treatment Patient Instructions Indication:Benign essential hypertension Start:08-Sep-2016 Instruction Type:Provider Instructions for Treatment How to access health informa tion online Indication:Non-smoker Start:28-Aug-2016 Instruction Type:Patient Education How to access health informa tion online - Detail Indication:Non-smoker Start:28-Aug-2016 Instruction Type:Patient Education Patient Instructions Indication:Non-smoker Start:28-Aug-2016 Instruction Type:Provider Instructions for Treatment How to access health informa tion online Indication:BMI between 19-24,adult Start:24-Apr-2016 Instruction Type:Patient Education How to access health informa tion online - Detail Indication:BMI between 19-24,adult Start:24-Apr-2016 Instruction Type:Patient Education Patient Instructions Indication:BMI between 19-24,adult Start:24-Apr-2016 Instruction Type:Provider Instructions for Treatment Patient Instructions 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.) Start:02-Jul-2015 Instruction Type:Provider Instructions for Treatment How to access health informa tion online Indication:Anxiety Start:02-Jul-2015 Instruction Type:Patient Education How to access health informa tion online - Detail Indication:Anxiety Start:02-Jul-2015 Instruction Type:Patient Education Patient Instructions Indication:Anxiety Start:27-Nov-2011 Instruction Type:Provider Instructions for Treatment [facility]; [facility] Work Phone: Instructions* Name Dates Details cardiovascular counseling Indication:Cardiomyopathy Start:17-Mar-2022 Instruction Type:Provider Instructions for Treatment Patient Instructions Indication:Non-smoker Start:17-Mar-2022 Instruction Type:Provider Instructions for Treatment How to Access Health Informa tion Online using Patient Portal and [employer] Apps Indication:Non-smoker Start:17-Mar-2022 Instruction Type:Patient Education Patient Instructions Indication:BMI less than 19,adult Start:12-Dec-2021 Instruction Type:Provider Instructions for Treatment How to Access Health Informa tion Online using Patient Portal and [employer] Apps Indication:BMI less than 19,adult Start:12-Dec-2021 Instruction Type:Patient Education Patient Instructions Indication:BMI less than 19,adult Start:15-Apr-2021 Instruction Type:Provider Instructions for Treatment How to Access Health Informa tion Online using Patient Portal and [employer] Apps Indication:BMI less than 19,adult Start:15-Apr-2021 Instruction Type:Patient Education Patient Instructions Indication:BMI less than 19,adult Start:14-Mar-2021 Instruction Type:Provider Instructions for Treatment How to Access Health Informa tion Online using Patient Portal and [employer] Apps Indication:BMI less than 19,adult Start:14-Mar-2021 Instruction Type:Patient Education Patient Instructions Indication:Non-smoker Start:11-Feb-2021 Instruction Type:Provider Instructions for Treatment How to Access Health Informa tion Online using Patient Portal and [employer] Apps Indication:Non-smoker Start:11-Feb-2021 Instruction Type:Patient Education Patient Instructions Indication:BMI less than 19,adult Start:02-Nov-2020 Instruction Type:Provider Instructions for Treatment How to Access Health Informa tion Online using Patient Portal and [employer] Apps Indication:BMI less than 19,adult Start:02-Nov-2020 Instruction Type:Patient Education Patient Instructions Indication:BMI less than 19,adult Start:25-Oct-2020 Instruction Type:Provider Instructions for Treatment How to Access Health Informa tion Online using Patient Portal and [employer] Apps Indication:BMI less than 19,adult Start:25-Oct-2020 Instruction Type:Patient Education Patient Instructions Indication:BMI less than 19,adult Start:22-Oct-2020 Instruction Type:Provider Instructions for Treatment How to Access Health Informa tion Online using Patient Portal and [employer] Apps Indication:BMI less than 19,adult Start:22-Oct-2020 Instruction Type:Patient Education How to Access Health Informa tion Online using Patient Portal and [employer] Apps Indication:Non-smoker Start:08-Aug-2020 Instruction Type:Patient Education Patient Instructions Indication:Non-smoker Start:08-Aug-2020 Instruction Type:Provider Instructions for Treatment How to Access Health Informa tion Online using Patient Portal and [employer] Apps Indication:Non-smoker Start:09-May-2020 Instruction Type:Patient Education Patient Instructions Indication:Non-smoker Start:09-May-2020 Instruction Type:Provider Instructions for Treatment Patient Instructions Indication:[place] Start:04-May-2020 Instruction Type:Provider Instructions for Treatment How to Access Health Informa tion Online using Patient Portal and [employer] Apps Indication:Non-smoker Start:06-Apr-2020 Instruction Type:Patient Education Patient Instructions Indication:Non-smoker Start:06-Apr-2020 Instruction Type:Provider Instructions for Treatment How to access health informa tion online Indication:Non-smoker Start:13-Oct-2019 Instruction Type:Patient Education How to access health informa tion online - Detail Indication:Non-smoker Start:13-Oct-2019 Instruction Type:Patient Education Patient Instructions Indication:Non-smoker Start:13-Oct-2019 Instruction Type:Provider Instructions for Treatment How to access health informa tion online Indication:Non-smoker Start:03-Oct-2019 Instruction Type:Patient Education How to access health informa tion online - Detail Indication:Non-smoker Start:03-Oct-2019 Instruction Type:Patient Education Patient Instructions Indication:Non-smoker Start:03-Oct-2019 Instruction Type:Provider Instructions for Treatment How to access health informa tion online Indication:BMI less than 19,adult Start:17-Aug-2019 Instruction Type:Patient Education How to access health informa tion online - Detail Indication:BMI less than 19,adult Start:17-Aug-2019 Instruction Type:Patient Education Patient Instructions Indication:BMI less than 19,adult Start:17-Aug-2019 Instruction Type:Provider Instructions for Treatment How to access health informa tion online Indication:Non-smoker Start:15-Nov-2018 Instruction Type:Patient Education How to access health informa tion online - Detail Indication:Non-smoker Start:15-Nov-2018 Instruction Type:Patient Education Patient Instructions Indication:Skin rash Start:15-Nov-2018 Instruction Type:Provider Instructions for Treatment How to access health informa tion online Indication:Non-smoker Start:01-Oct-2018 Instruction Type:Patient Education How to access health informa tion online - Detail Indication:Non-smoker Start:01-Oct-2018 Instruction Type:Patient Education Patient Instructions Indication:Non-smoker Start:01-Oct-2018 Instruction Type:Provider Instructions for Treatment How to access health informa tion online Indication:Non-smoker Start:09-Sep-2018 Instruction Type:Patient Education How to access health informa tion online - Detail Indication:Non-smoker Start:09-Sep-2018 Instruction Type:Patient Education Patient Instructions Indication:Elevated blood pressure reading Start:09-Sep-2018 Instruction Type:Provider Instructions for Treatment How to access health informa tion online Indication:BMI between 19-24,adult Start:12-Aug-2018 Instruction Type:Patient Education How to access health informa tion online - Detail Indication:BMI between 19-24,adult Start:12-Aug-2018 Instruction Type:Patient Education Patient Instructions Indication:Abdominal pain Start:12-Aug-2018 Instruction Type:Provider Instructions for Treatment How to access health informa tion online Indication:Non-smoker Start:28-May-2018 Instruction Type:Patient Education How to access health informa tion online - Detail Indication:Non-smoker Start:28-May-2018 Instruction Type:Patient Education Patient Instructions Indication:Non-smoker Start:28-May-2018 Instruction Type:Provider Instructions for Treatment How to access health informa tion online Indication:Non-smoker Start:14-Jul-2017 Instruction Type:Patient Education How to access health informa tion online - Detail Indication:Non-smoker Start:14-Jul-2017 Instruction Type:Patient Education Patient Instructions Indication:Non-smoker Start:14-Jul-2017 Instruction Type:Provider Instructions for Treatment How to access health informa tion online Indication:Non-smoker Start:08-May-2017 Instruction Type:Patient Education How to access health informa tion online - Detail Indication:Non-smoker Start:08-May-2017 Instruction Type:Patient Education Patient Instructions Indication:Non-smoker Start:08-May-2017 Instruction Type:Provider Instructions for Treatment How to access health informa tion online Indication:Non-smoker Start:22-Apr-2017 Instruction Type:Patient Education How to access health informa tion online - Detail Indication:Non-smoker Start:22-Apr-2017 Instruction Type:Patient Education Patient Instructions Indication:Non-smoker Start:22-Apr-2017 Instruction Type:Provider Instructions for Treatment How to access health informa tion online Indication:BMI less than 19,adult Start:14-Nov-2016 Instruction Type:Patient Education How to access health informa tion online - Detail Indication:BMI less than 19,adult Start:14-Nov-2016 Instruction Type:Patient Education Patient Instructions Indication:BMI less than 19,adult Start:14-Nov-2016 Instruction Type:Provider Instructions for Treatment Patient Instructions Indication:Benign essential hypertension Start:08-Sep-2016 Instruction Type:Provider Instructions for Treatment How to access health informa tion online Indication:Non-smoker Start:28-Aug-2016 Instruction Type:Patient Education How to access health informa tion online - Detail Indication:Non-smoker Start:28-Aug-2016 Instruction Type:Patient Education Patient Instructions Indication:Non-smoker Start:28-Aug-2016 Instruction Type:Provider Instructions for Treatment How to access health informa tion online Indication:BMI between 19-24,adult Start:24-Apr-2016 Instruction Type:Patient Education How to access health informa tion online - Detail Indication:BMI between 19-24,adult Start:24-Apr-2016 Instruction Type:Patient Education Patient Instructions Indication:BMI between 19-24,adult Start:24-Apr-2016 Instruction Type:Provider Instructions for Treatment Patient Instructions 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.) Start:02-Jul-2015 Instruction Type:Provider Instructions for Treatment How to access health informa tion online Indication:Anxiety Start:02-Jul-2015 Instruction Type:Patient Education How to access health informa tion online - Detail Indication:Anxiety Start:02-Jul-2015 Instruction Type:Patient Education Patient Instructions Indication:Anxiety Start:27-Nov-2011 Instruction Type:Provider Instructions for Treatment [facility]; [facility] Work Phone: Instructions* Name Dates Details Patient Instructions Indication:Non-smoker Start:16-Jun-2022 Instruction Type:Provider Instructions for Treatment How to Access Health Informa tion Online using Patient Portal and [employer]rd [employer] Apps Indication:Non-smoker Start:16-Jun-2022 Instruction Type:Patient Education cardiovascular counseling Indication:Cardiomyopathy Start:17-Mar-2022 Instruction Type:Provider Instructions for Treatment Patient Instructions Indication:Non-smoker Start:17-Mar-2022 Instruction Type:Provider Instructions for Treatment How to Access Health Informa tion Online using Patient Portal and [employer]rd [employer] Apps Indication:Non-smoker Start:17-Mar-2022 Instruction Type:Patient Education Patient Instructions Indication:BMI less than 19,adult Start:12-Dec-2021 Instruction Type:Provider Instructions for Treatment How to Access Health Informa tion Online using Patient Portal and [employer]rd [employer] Apps Indication:BMI less than 19,adult Start:12-Dec-2021 Instruction Type:Patient Education Patient Instructions Indication:BMI less than 19,adult Start:15-Apr-2021 Instruction Type:Provider Instructions for Treatment How to Access Health Informa tion Online using Patient Portal and [employer]rd [employer] Apps Indication:BMI less than 19,adult Start:15-Apr-2021 Instruction Type:Patient Education Patient Instructions Indication:BMI less than 19,adult Start:14-Mar-2021 Instruction Type:Provider Instructions for Treatment How to Access Health Informa tion Online using Patient Portal and [employer]rd [employer] Apps Indication:BMI less than 19,adult Start:14-Mar-2021 Instruction Type:Patient Education Patient Instructions Indication:Non-smoker Start:11-Feb-2021 Instruction Type:Provider Instructions for Treatment How to Access Health Informa tion Online using Patient Portal and [employer]rd [employer] Apps Indication:Non-smoker Start:11-Feb-2021 Instruction Type:Patient Education Patient Instructions Indication:BMI less than 19,adult Start:02-Nov-2020 Instruction Type:Provider Instructions for Treatment How to Access Health Informa tion Online using Patient Portal and [employer] Apps Indication:BMI less than 19,adult Start:02-Nov-2020 Instruction Type:Patient Education Patient Instructions Indication:BMI less than 19,adult Start:25-Oct-2020 Instruction Type:Provider Instructions for Treatment How to Access Health Informa tion Online using Patient Portal and [employer] Apps Indication:BMI less than 19,adult Start:25-Oct-2020 Instruction Type:Patient Education Patient Instructions Indication:BMI less than 19,adult Start:22-Oct-2020 Instruction Type:Provider Instructions for Treatment How to Access Health Informa tion Online using Patient Portal and [employer]rd [employer] Apps Indication:BMI less than 19,adult Start:22-Oct-2020 Instruction Type:Patient Education How to Access Health Informa tion Online using Patient Portal and [employer]rd [employer] Apps Indication:Non-smoker Start:08-Aug-2020 Instruction Type:Patient Education Patient Instructions Indication:Non-smoker Start:08-Aug-2020 Instruction Type:Provider Instructions for Treatment How to Access Health Informa tion Online using Patient Portal and [employer]rd [employer] Apps Indication:Non-smoker Start:09-May-2020 Instruction Type:Patient Education Patient Instructions Indication:Non-smoker Start:09-May-2020 Instruction Type:Provider Instructions for Treatment Patient Instructions Indication:[place]ills Start:04-May-2020 Instruction Type:Provider Instructions for Treatment How to Access Health Informa tion Online using Patient Portal and [employer]rd [employer] Apps Indication:Non-smoker Start:06-Apr-2020 Instruction Type:Patient Education Patient Instructions Indication:Non-smoker Start:06-Apr-2020 Instruction Type:Provider Instructions for Treatment How to access health informa tion online Indication:Non-smoker Start:13-Oct-2019 Instruction Type:Patient Education How to access health informa tion online - Detail Indication:Non-smoker Start:13-Oct-2019 Instruction Type:Patient Education Patient Instructions Indication:Non-smoker Start:13-Oct-2019 Instruction Type:Provider Instructions for Treatment How to access health informa tion online Indication:Non-smoker Start:03-Oct-2019 Instruction Type:Patient Education How to access health informa tion online - Detail Indication:Non-smoker Start:03-Oct-2019 Instruction Type:Patient Education Patient Instructions Indication:Non-smoker Start:03-Oct-2019 Instruction Type:Provider Instructions for Treatment How to access health informa tion online Indication:BMI less than 19,adult Start:17-Aug-2019 Instruction Type:Patient Education How to access health informa tion online - Detail Indication:BMI less than 19,adult Start:17-Aug-2019 Instruction Type:Patient Education Patient Instructions Indication:BMI less than 19,adult Start:17-Aug-2019 Instruction Type:Provider Instructions for Treatment How to access health informa tion online Indication:Non-smoker Start:15-Nov-2018 Instruction Type:Patient Education How to access health informa tion online - Detail Indication:Non-smoker Start:15-Nov-2018 Instruction Type:Patient Education Patient Instructions Indication:Skin rash Start:15-Nov-2018 Instruction Type:Provider Instructions for Treatment How to access health informa tion online Indication:Non-smoker Start:01-Oct-2018 Instruction Type:Patient Education How to access health informa tion online - Detail Indication:Non-smoker Start:01-Oct-2018 Instruction Type:Patient Education Patient Instructions Indication:Non-smoker Start:01-Oct-2018 Instruction Type:Provider Instructions for Treatment How to access health informa tion online Indication:Non-smoker Start:09-Sep-2018 Instruction Type:Patient Education How to access health informa tion online - Detail Indication:Non-smoker Start:09-Sep-2018 Instruction Type:Patient Education Patient Instructions Indication:Elevated blood pressure reading Start:09-Sep-2018 Instruction Type:Provider Instructions for Treatment How to access health informa tion online Indication:BMI between 19-24,adult Start:12-Aug-2018 Instruction Type:Patient Education How to access health informa tion online - Detail Indication:BMI between 19-24,adult Start:12-Aug-2018 Instruction Type:Patient Education Patient Instructions Indication:Abdominal pain Start:12-Aug-2018 Instruction Type:Provider Instructions for Treatment How to access health informa tion online Indication:Non-smoker Start:28-May-2018 Instruction Type:Patient Education How to access health informa tion online - Detail Indication:Non-smoker Start:28-May-2018 Instruction Type:Patient Education Patient Instructions Indication:Non-smoker Start:28-May-2018 Instruction Type:Provider Instructions for Treatment How to access health informa tion online Indication:Non-smoker Start:14-Jul-2017 Instruction Type:Patient Education How to access health informa tion online - Detail Indication:Non-smoker Start:14-Jul-2017 Instruction Type:Patient Education Patient Instructions Indication:Non-smoker Start:14-Jul-2017 Instruction Type:Provider Instructions for Treatment How to access health informa tion online Indication:Non-smoker Start:08-May-2017 Instruction Type:Patient Education How to access health informa tion online - Detail Indication:Non-smoker Start:08-May-2017 Instruction Type:Patient Education Patient Instructions Indication:Non-smoker Start:08-May-2017 Instruction Type:Provider Instructions for Treatment How to access health informa tion online Indication:Non-smoker Start:22-Apr-2017 Instruction Type:Patient Education How to access health informa tion online - Detail Indication:Non-smoker Start:22-Apr-2017 Instruction Type:Patient Education Patient Instructions Indication:Non-smoker Start:22-Apr-2017 Instruction Type:Provider Instructions for Treatment How to access health informa tion online Indication:BMI less than 19,adult Start:14-Nov-2016 Instruction Type:Patient Education How to access health informa tion online - Detail Indication:BMI less than 19,adult Start:14-Nov-2016 Instruction Type:Patient Education Patient Instructions Indication:BMI less than 19,adult Start:14-Nov-2016 Instruction Type:Provider Instructions for Treatment Patient Instructions Indication:Benign essential hypertension Start:08-Sep-2016 Instruction Type:Provider Instructions for Treatment How to access health informa tion online Indication:Non-smoker Start:28-Aug-2016 Instruction Type:Patient Education How to access health informa tion online - Detail Indication:Non-smoker Start:28-Aug-2016 Instruction Type:Patient Education Patient Instructions Indication:Non-smoker Start:28-Aug-2016 Instruction Type:Provider Instructions for Treatment How to access health informa tion online Indication:BMI between 19-24,adult Start:24-Apr-2016 Instruction Type:Patient Education How to access health informa tion online - Detail Indication:BMI between 19-24,adult Start:24-Apr-2016 Instruction Type:Patient Education Patient Instructions Indication:BMI between 19-24,adult Start:24-Apr-2016 Instruction Type:Provider Instructions for Treatment Patient Instructions 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.) Start:02-Jul-2015 Instruction Type:Provider Instructions for Treatment How to access health informa tion online Indication:Anxiety Start:02-Jul-2015 Instruction Type:Patient Education How to access health informa tion online - Detail Indication:Anxiety Start:02-Jul-2015 Instruction Type:Patient Education Patient Instructions Indication:Anxiety Start:27-Nov-2011 Instruction Type:Provider Instructions for Treatment [facility]; [facility] Work Phone: Instructions* Name Dates Details Patient Instructions Indication:Non-smoker Start:16-Jun-2022 Instruction Type:Provider Instructions for Treatment How to Access Health Informa tion Online using Patient Portal and [employer]rd [employer] Apps Indication:Non-smoker Start:16-Jun-2022 Instruction Type:Patient Education cardiovascular counseling Indication:Cardiomyopathy Start:17-Mar-2022 Instruction Type:Provider Instructions for Treatment Patient Instructions Indication:Non-smoker Start:17-Mar-2022 Instruction Type:Provider Instructions for Treatment How to Access Health Informa tion Online using Patient Portal and [employer]rd [employer] Apps Indication:Non-smoker Start:17-Mar-2022 Instruction Type:Patient Education Patient Instructions Indication:BMI less than 19,adult Start:12-Dec-2021 Instruction Type:Provider Instructions for Treatment How to Access Health Informa tion Online using Patient Portal and [employer]rd [employer] Apps Indication:BMI less than 19,adult Start:12-Dec-2021 Instruction Type:Patient Education Patient Instructions Indication:BMI less than 19,adult Start:15-Apr-2021 Instruction Type:Provider Instructions for Treatment How to Access Health Informa tion Online using Patient Portal and [employer]rd [employer] Apps Indication:BMI less than 19,adult Start:15-Apr-2021 Instruction Type:Patient Education Patient Instructions Indication:BMI less than 19,adult Start:14-Mar-2021 Instruction Type:Provider Instructions for Treatment How to Access Health Informa tion Online using Patient Portal and [employer]rd [employer] Apps Indication:BMI less than 19,adult Start:14-Mar-2021 Instruction Type:Patient Education Patient Instructions Indication:Non-smoker Start:11-Feb-2021 Instruction Type:Provider Instructions for Treatment How to Access Health Informa tion Online using Patient Portal and [employer]rd [employer] Apps Indication:Non-smoker Start:11-Feb-2021 Instruction Type:Patient Education Patient Instructions Indication:BMI less than 19,adult Start:02-Nov-2020 Instruction Type:Provider Instructions for Treatment How to Access Health Informa tion Online using Patient Portal and [employer]rd [employer] Apps Indication:BMI less than 19,adult Start:02-Nov-2020 Instruction Type:Patient Education Patient Instructions Indication:BMI less than 19,adult Start:25-Oct-2020 Instruction Type:Provider Instructions for Treatment How to Access Health Informa tion Online using Patient Portal and [employer]rd [employer] Apps Indication:BMI less than 19,adult Start:25-Oct-2020 Instruction Type:Patient Education Patient Instructions Indication:BMI less than 19,adult Start:22-Oct-2020 Instruction Type:Provider Instructions for Treatment How to Access Health Informa tion Online using Patient Portal and [employer]rd [employer] Apps Indication:BMI less than 19,adult Start:22-Oct-2020 Instruction Type:Patient Education How to Access Health Informa tion Online using Patient Portal and [employer]rd [employer] Apps Indication:Non-smoker Start:08-Aug-2020 Instruction Type:Patient Education Patient Instructions Indication:Non-smoker Start:08-Aug-2020 Instruction Type:Provider Instructions for Treatment How to Access Health Informa tion Online using Patient Portal and [employer]rd [employer] Apps Indication:Non-smoker Start:09-May-2020 Instruction Type:Patient Education Patient Instructions Indication:Non-smoker Start:09-May-2020 Instruction Type:Provider Instructions for Treatment Patient Instructions Indication:[place] Start:04-May-2020 Instruction Type:Provider Instructions for Treatment How to Access Health Informa tion Online using Patient Portal and [employer]rd [employer] Apps Indication:Non-smoker Start:06-Apr-2020 Instruction Type:Patient Education Patient Instructions Indication:Non-smoker Start:06-Apr-2020 Instruction Type:Provider Instructions for Treatment How to access health informa tion online Indication:Non-smoker Start:13-Oct-2019 Instruction Type:Patient Education How to access health informa tion online - Detail Indication:Non-smoker Start:13-Oct-2019 Instruction Type:Patient Education Patient Instructions Indication:Non-smoker Start:13-Oct-2019 Instruction Type:Provider Instructions for Treatment How to access health informa tion online Indication:Non-smoker Start:03-Oct-2019 Instruction Type:Patient Education How to access health informa tion online - Detail Indication:Non-smoker Start:03-Oct-2019 Instruction Type:Patient Education Patient Instructions Indication:Non-smoker Start:03-Oct-2019 Instruction Type:Provider Instructions for Treatment How to access health informa tion online Indication:BMI less than 19,adult Start:17-Aug-2019 Instruction Type:Patient Education How to access health informa tion online - Detail Indication:BMI less than 19,adult Start:17-Aug-2019 Instruction Type:Patient Education Patient Instructions Indication:BMI less than 19,adult Start:17-Aug-2019 Instruction Type:Provider Instructions for Treatment How to access health informa tion online Indication:Non-smoker Start:15-Nov-2018 Instruction Type:Patient Education How to access health informa tion online - Detail Indication:Non-smoker Start:15-Nov-2018 Instruction Type:Patient Education Patient Instructions Indication:Skin rash Start:15-Nov-2018 Instruction Type:Provider Instructions for Treatment How to access health informa tion online Indication:Non-smoker Start:01-Oct-2018 Instruction Type:Patient Education How to access health informa tion online - Detail Indication:Non-smoker Start:01-Oct-2018 Instruction Type:Patient Education Patient Instructions Indication:Non-smoker Start:01-Oct-2018 Instruction Type:Provider Instructions for Treatment How to access health informa tion online Indication:Non-smoker Start:09-Sep-2018 Instruction Type:Patient Education How to access health informa tion online - Detail Indication:Non-smoker Start:09-Sep-2018 Instruction Type:Patient Education Patient Instructions Indication:Elevated blood pressure reading Start:09-Sep-2018 Instruction Type:Provider Instructions for Treatment How to access health informa tion online Indication:BMI between 19-24,adult Start:12-Aug-2018 Instruction Type:Patient Education How to access health informa tion online - Detail Indication:BMI between 19-24,adult Start:12-Aug-2018 Instruction Type:Patient Education Patient Instructions Indication:Abdominal pain Start:12-Aug-2018 Instruction Type:Provider Instructions for Treatment How to access health informa tion online Indication:Non-smoker Start:28-May-2018 Instruction Type:Patient Education How to access health informa tion online - Detail Indication:Non-smoker Start:28-May-2018 Instruction Type:Patient Education Patient Instructions Indication:Non-smoker Start:28-May-2018 Instruction Type:Provider Instructions for Treatment How to access health informa tion online Indication:Non-smoker Start:14-Jul-2017 Instruction Type:Patient Education How to access health informa tion online - Detail Indication:Non-smoker Start:14-Jul-2017 Instruction Type:Patient Education Patient Instructions Indication:Non-smoker Start:14-Jul-2017 Instruction Type:Provider Instructions for Treatment How to access health informa tion online Indication:Non-smoker Start:08-May-2017 Instruction Type:Patient Education How to access health informa tion online - Detail Indication:Non-smoker Start:08-May-2017 Instruction Type:Patient Education Patient Instructions Indication:Non-smoker Start:08-May-2017 Instruction Type:Provider Instructions for Treatment How to access health informa tion online Indication:Non-smoker Start:22-Apr-2017 Instruction Type:Patient Education How to access health informa tion online - Detail Indication:Non-smoker Start:22-Apr-2017 Instruction Type:Patient Education Patient Instructions Indication:Non-smoker Start:22-Apr-2017 Instruction Type:Provider Instructions for Treatment How to access health informa tion online Indication:BMI less than 19,adult Start:14-Nov-2016 Instruction Type:Patient Education How to access health informa tion online - Detail Indication:BMI less than 19,adult Start:14-Nov-2016 Instruction Type:Patient Education Patient Instructions Indication:BMI less than 19,adult Start:14-Nov-2016 Instruction Type:Provider Instructions for Treatment Patient Instructions Indication:Benign essential hypertension Start:08-Sep-2016 Instruction Type:Provider Instructions for Treatment How to access health informa tion online Indication:Non-smoker Start:28-Aug-2016 Instruction Type:Patient Education How to access health informa tion online - Detail Indication:Non-smoker Start:28-Aug-2016 Instruction Type:Patient Education Patient Instructions Indication:Non-smoker Start:28-Aug-2016 Instruction Type:Provider Instructions for Treatment How to access health informa tion online Indication:BMI between 19-24,adult Start:24-Apr-2016 Instruction Type:Patient Education How to access health informa tion online - Detail Indication:BMI between 19-24,adult Start:24-Apr-2016 Instruction Type:Patient Education Patient Instructions Indication:BMI between 19-24,adult Start:24-Apr-2016 Instruction Type:Provider Instructions for Treatment Patient Instructions 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.) Start:02-Jul-2015 Instruction Type:Provider Instructions for Treatment How to access health informa tion online Indication:Anxiety Start:02-Jul-2015 Instruction Type:Patient Education How to access health informa tion online - Detail Indication:Anxiety Start:02-Jul-2015 Instruction Type:Patient Education Patient Instructions Indication:Anxiety Start:27-Nov-2011 Instruction Type:Provider Instructions for Treatment [facility]; [facility] Work Phone: Instructions* Name Dates Details Patient Instructions Indication:Non-smoker Start:26-Jun-2022 Instruction Type:Provider Instructions for Treatment How to Access Health Informa tion Online using Patient Portal and [employer] Apps Indication:Non-smoker Start:26-Jun-2022 Instruction Type:Patient Education Patient Instructions Indication:Non-smoker Start:16-Jun-2022 Instruction Type:Provider Instructions for Treatment How to Access Health Informa tion Online using Patient Portal and [employer] Apps Indication:Non-smoker Start:16-Jun-2022 Instruction Type:Patient Education cardiovascular counseling Indication:Cardiomyopathy Start:17-Mar-2022 Instruction Type:Provider Instructions for Treatment Patient Instructions Indication:Non-smoker Start:17-Mar-2022 Instruction Type:Provider Instructions for Treatment How to Access Health Informa tion Online using Patient Portal and [employer] Apps Indication:Non-smoker Start:17-Mar-2022 Instruction Type:Patient Education Patient Instructions Indication:BMI less than 19,adult Start:12-Dec-2021 Instruction Type:Provider Instructions for Treatment How to Access Health Informa tion Online using Patient Portal and [employer] Apps Indication:BMI less than 19,adult Start:12-Dec-2021 Instruction Type:Patient Education Patient Instructions Indication:BMI less than 19,adult Start:15-Apr-2021 Instruction Type:Provider Instructions for Treatment How to Access Health Informa tion Online using Patient Portal and [employer] Apps Indication:BMI less than 19,adult Start:15-Apr-2021 Instruction Type:Patient Education Patient Instructions Indication:BMI less than 19,adult Start:14-Mar-2021 Instruction Type:Provider Instructions for Treatment How to Access Health Informa tion Online using Patient Portal and [employer] Apps Indication:BMI less than 19,adult Start:14-Mar-2021 Instruction Type:Patient Education Patient Instructions Indication:Non-smoker Start:11-Feb-2021 Instruction Type:Provider Instructions for Treatment How to Access Health Informa tion Online using Patient Portal and [employer] Apps Indication:Non-smoker Start:11-Feb-2021 Instruction Type:Patient Education Patient Instructions Indication:BMI less than 19,adult Start:02-Nov-2020 Instruction Type:Provider Instructions for Treatment How to Access Health Informa tion Online using Patient Portal and [employer] Apps Indication:BMI less than 19,adult Start:02-Nov-2020 Instruction Type:Patient Education Patient Instructions Indication:BMI less than 19,adult Start:25-Oct-2020 Instruction Type:Provider Instructions for Treatment How to Access Health Informa tion Online using Patient Portal and [employer] Apps Indication:BMI less than 19,adult Start:25-Oct-2020 Instruction Type:Patient Education Patient Instructions Indication:BMI less than 19,adult Start:22-Oct-2020 Instruction Type:Provider Instructions for Treatment How to Access Health Informa tion Online using Patient Portal and [employer] Apps Indication:BMI less than 19,adult Start:22-Oct-2020 Instruction Type:Patient Education How to Access Health Informa tion Online using Patient Portal and [employer] Apps Indication:Non-smoker Start:08-Aug-2020 Instruction Type:Patient Education Patient Instructions Indication:Non-smoker Start:08-Aug-2020 Instruction Type:Provider Instructions for Treatment How to Access Health Informa tion Online using Patient Portal and [employer] Apps Indication:Non-smoker Start:09-May-2020 Instruction Type:Patient Education Patient Instructions Indication:Non-smoker Start:09-May-2020 Instruction Type:Provider Instructions for Treatment Patient Instructions Indication:Chills Start:04-May-2020 Instruction Type:Provider Instructions for Treatment How to Access Health Informa tion Online using Patient Portal and [employer] Apps Indication:Non-smoker Start:06-Apr-2020 Instruction Type:Patient Education Patient Instructions Indication:Non-smoker Start:06-Apr-2020 Instruction Type:Provider Instructions for Treatment How to access health informa tion online Indication:Non-smoker Start:13-Oct-2019 Instruction Type:Patient Education How to access health informa tion online - Detail Indication:Non-smoker Start:13-Oct-2019 Instruction Type:Patient Education Patient Instructions Indication:Non-smoker Start:13-Oct-2019 Instruction Type:Provider Instructions for Treatment How to access health informa tion online Indication:Non-smoker Start:03-Oct-2019 Instruction Type:Patient Education How to access health informa tion online - Detail Indication:Non-smoker Start:03-Oct-2019 Instruction Type:Patient Education Patient Instructions Indication:Non-smoker Start:03-Oct-2019 Instruction Type:Provider Instructions for Treatment How to access health informa tion online Indication:BMI less than 19,adult Start:17-Aug-2019 Instruction Type:Patient Education How to access health informa tion online - Detail Indication:BMI less than 19,adult Start:17-Aug-2019 Instruction Type:Patient Education Patient Instructions Indication:BMI less than 19,adult Start:17-Aug-2019 Instruction Type:Provider Instructions for Treatment How to access health informa tion online Indication:Non-smoker Start:15-Nov-2018 Instruction Type:Patient Education How to access health informa tion online - Detail Indication:Non-smoker Start:15-Nov-2018 Instruction Type:Patient Education Patient Instructions Indication:Skin rash Start:15-Nov-2018 Instruction Type:Provider Instructions for Treatment How to access health informa tion online Indication:Non-smoker Start:01-Oct-2018 Instruction Type:Patient Education How to access health informa tion online - Detail Indication:Non-smoker Start:01-Oct-2018 Instruction Type:Patient Education Patient Instructions Indication:Non-smoker Start:01-Oct-2018 Instruction Type:Provider Instructions for Treatment How to access health informa tion online Indication:Non-smoker Start:09-Sep-2018 Instruction Type:Patient Education How to access health informa tion online - Detail Indication:Non-smoker Start:09-Sep-2018 Instruction Type:Patient Education Patient Instructions Indication:Elevated blood pressure reading Start:09-Sep-2018 Instruction Type:Provider Instructions for Treatment How to access health informa tion online Indication:BMI between 19-24,adult Start:12-Aug-2018 Instruction Type:Patient Education How to access health informa tion online - Detail Indication:BMI between 19-24,adult Start:12-Aug-2018 Instruction Type:Patient Education Patient Instructions Indication:Abdominal pain Start:12-Aug-2018 Instruction Type:Provider Instructions for Treatment How to access health informa tion online Indication:Non-smoker Start:28-May-2018 Instruction Type:Patient Education How to access health informa tion online - Detail Indication:Non-smoker Start:28-May-2018 Instruction Type:Patient Education Patient Instructions Indication:Non-smoker Start:28-May-2018 Instruction Type:Provider Instructions for Treatment How to access health informa tion online Indication:Non-smoker Start:14-Jul-2017 Instruction Type:Patient Education How to access health informa tion online - Detail Indication:Non-smoker Start:14-Jul-2017 Instruction Type:Patient Education Patient Instructions Indication:Non-smoker Start:14-Jul-2017 Instruction Type:Provider Instructions for Treatment How to access health informa tion online Indication:Non-smoker Start:08-May-2017 Instruction Type:Patient Education How to access health informa tion online - Detail Indication:Non-smoker Start:08-May-2017 Instruction Type:Patient Education Patient Instructions Indication:Non-smoker Start:08-May-2017 Instruction Type:Provider Instructions for Treatment How to access health informa tion online Indication:Non-smoker Start:22-Apr-2017 Instruction Type:Patient Education How to access health informa tion online - Detail Indication:Non-smoker Start:22-Apr-2017 Instruction Type:Patient Education Patient Instructions Indication:Non-smoker Start:22-Apr-2017 Instruction Type:Provider Instructions for Treatment How to access health informa tion online Indication:BMI less than 19,adult Start:14-Nov-2016 Instruction Type:Patient Education How to access health informa tion online - Detail Indication:BMI less than 19,adult Start:14-Nov-2016 Instruction Type:Patient Education Patient Instructions Indication:BMI less than 19,adult Start:14-Nov-2016 Instruction Type:Provider Instructions for Treatment Patient Instructions Indication:Benign essential hypertension Start:08-Sep-2016 Instruction Type:Provider Instructions for Treatment How to access health informa tion online Indication:Non-smoker Start:28-Aug-2016 Instruction Type:Patient Education How to access health informa tion online - Detail Indication:Non-smoker Start:28-Aug-2016 Instruction Type:Patient Education Patient Instructions Indication:Non-smoker Start:28-Aug-2016 Instruction Type:Provider Instructions for Treatment How to access health informa tion online Indication:BMI between 19-24,adult Start:24-Apr-2016 Instruction Type:Patient Education How to access health informa tion online - Detail Indication:BMI between 19-24,adult Start:24-Apr-2016 Instruction Type:Patient Education Patient Instructions Indication:BMI between 19-24,adult Start:24-Apr-2016 Instruction Type:Provider Instructions for Treatment Patient Instructions 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.) Start:02-Jul-2015 Instruction Type:Provider Instructions for Treatment How to access health informa tion online Indication:Anxiety Start:02-Jul-2015 Instruction Type:Patient Education How to access health informa tion online - Detail Indication:Anxiety Start:02-Jul-2015 Instruction Type:Patient Education Patient Instructions Indication:Anxiety Start:27-Nov-2011 Instruction Type:Provider Instructions for Treatment [facility]; [facility] Work Phone: Instructions* Name Dates Details Patient Instructions Indication:Non-smoker Start:26-Jun-2022 Instruction Type:Provider Instructions for Treatment How to Access Health Informa tion Online using Patient Portal and [employer] Apps Indication:Non-smoker Start:26-Jun-2022 Instruction Type:Patient Education Patient Instructions Indication:Non-smoker Start:16-Jun-2022 Instruction Type:Provider Instructions for Treatment How to Access Health Informa tion Online using Patient Portal and [employer] Apps Indication:Non-smoker Start:16-Jun-2022 Instruction Type:Patient Education cardiovascular counseling Indication:Cardiomyopathy Start:17-Mar-2022 Instruction Type:Provider Instructions for Treatment Patient Instructions Indication:Non-smoker Start:17-Mar-2022 Instruction Type:Provider Instructions for Treatment How to Access Health Informa tion Online using Patient Portal and [employer] Apps Indication:Non-smoker Start:17-Mar-2022 Instruction Type:Patient Education Patient Instructions Indication:BMI less than 19,adult Start:12-Dec-2021 Instruction Type:Provider Instructions for Treatment How to Access Health Informa tion Online using Patient Portal and [employer] Apps Indication:BMI less than 19,adult Start:12-Dec-2021 Instruction Type:Patient Education Patient Instructions Indication:BMI less than 19,adult Start:15-Apr-2021 Instruction Type:Provider Instructions for Treatment How to Access Health Informa tion Online using Patient Portal and [employer] Apps Indication:BMI less than 19,adult Start:15-Apr-2021 Instruction Type:Patient Education Patient Instructions Indication:BMI less than 19,adult Start:14-Mar-2021 Instruction Type:Provider Instructions for Treatment How to Access Health Informa tion Online using Patient Portal and [employer] Apps Indication:BMI less than 19,adult Start:14-Mar-2021 Instruction Type:Patient Education Patient Instructions Indication:Non-smoker Start:11-Feb-2021 Instruction Type:Provider Instructions for Treatment How to Access Health Informa tion Online using Patient Portal and [employer] Apps Indication:Non-smoker Start:11-Feb-2021 Instruction Type:Patient Education Patient Instructions Indication:BMI less than 19,adult Start:02-Nov-2020 Instruction Type:Provider Instructions for Treatment How to Access Health Informa tion Online using Patient Portal and [employer] Apps Indication:BMI less than 19,adult Start:02-Nov-2020 Instruction Type:Patient Education Patient Instructions Indication:BMI less than 19,adult Start:25-Oct-2020 Instruction Type:Provider Instructions for Treatment How to Access Health Informa tion Online using Patient Portal and [employer] Apps Indication:BMI less than 19,adult Start:25-Oct-2020 Instruction Type:Patient Education Patient Instructions Indication:BMI less than 19,adult Start:22-Oct-2020 Instruction Type:Provider Instructions for Treatment How to Access Health Informa tion Online using Patient Portal and [employer] Apps Indication:BMI less than 19,adult Start:22-Oct-2020 Instruction Type:Patient Education How to Access Health Informa tion Online using Patient Portal and [employer] Apps Indication:Non-smoker Start:08-Aug-2020 Instruction Type:Patient Education Patient Instructions Indication:Non-smoker Start:08-Aug-2020 Instruction Type:Provider Instructions for Treatment How to Access Health Informa tion Online using Patient Portal and [employer] Apps Indication:Non-smoker Start:09-May-2020 Instruction Type:Patient Education Patient Instructions Indication:Non-smoker Start:09-May-2020 Instruction Type:Provider Instructions for Treatment Patient Instructions Indication:[place]ills Start:04-May-2020 Instruction Type:Provider Instructions for Treatment How to Access Health Informa tion Online using Patient Portal and [employer] Apps Indication:Non-smoker Start:06-Apr-2020 Instruction Type:Patient Education Patient Instructions Indication:Non-smoker Start:06-Apr-2020 Instruction Type:Provider Instructions for Treatment How to access health informa tion online Indication:Non-smoker Start:13-Oct-2019 Instruction Type:Patient Education How to access health informa tion online - Detail Indication:Non-smoker Start:13-Oct-2019 Instruction Type:Patient Education Patient Instructions Indication:Non-smoker Start:13-Oct-2019 Instruction Type:Provider Instructions for Treatment How to access health informa tion online Indication:Non-smoker Start:03-Oct-2019 Instruction Type:Patient Education How to access health informa tion online - Detail Indication:Non-smoker Start:03-Oct-2019 Instruction Type:Patient Education Patient Instructions Indication:Non-smoker Start:03-Oct-2019 Instruction Type:Provider Instructions for Treatment How to access health informa tion online Indication:BMI less than 19,adult Start:17-Aug-2019 Instruction Type:Patient Education How to access health informa tion online - Detail Indication:BMI less than 19,adult Start:17-Aug-2019 Instruction Type:Patient Education Patient Instructions Indication:BMI less than 19,adult Start:17-Aug-2019 Instruction Type:Provider Instructions for Treatment How to access health informa tion online Indication:Non-smoker Start:15-Nov-2018 Instruction Type:Patient Education How to access health informa tion online - Detail Indication:Non-smoker Start:15-Nov-2018 Instruction Type:Patient Education Patient Instructions Indication:Skin rash Start:15-Nov-2018 Instruction Type:Provider Instructions for Treatment How to access health informa tion online Indication:Non-smoker Start:01-Oct-2018 Instruction Type:Patient Education How to access health informa tion online - Detail Indication:Non-smoker Start:01-Oct-2018 Instruction Type:Patient Education Patient Instructions Indication:Non-smoker Start:01-Oct-2018 Instruction Type:Provider Instructions for Treatment How to access health informa tion online Indication:Non-smoker Start:09-Sep-2018 Instruction Type:Patient Education How to access health informa tion online - Detail Indication:Non-smoker Start:09-Sep-2018 Instruction Type:Patient Education Patient Instructions Indication:Elevated blood pressure reading Start:09-Sep-2018 Instruction Type:Provider Instructions for Treatment How to access health informa tion online Indication:BMI between 19-24,adult Start:12-Aug-2018 Instruction Type:Patient Education How to access health informa tion online - Detail Indication:BMI between 19-24,adult Start:12-Aug-2018 Instruction Type:Patient Education Patient Instructions Indication:Abdominal pain Start:12-Aug-2018 Instruction Type:Provider Instructions for Treatment How to access health informa tion online Indication:Non-smoker Start:28-May-2018 Instruction Type:Patient Education How to access health informa tion online - Detail Indication:Non-smoker Start:28-May-2018 Instruction Type:Patient Education Patient Instructions Indication:Non-smoker Start:28-May-2018 Instruction Type:Provider Instructions for Treatment How to access health informa tion online Indication:Non-smoker Start:14-Jul-2017 Instruction Type:Patient Education How to access health informa tion online - Detail Indication:Non-smoker Start:14-Jul-2017 Instruction Type:Patient Education Patient Instructions Indication:Non-smoker Start:14-Jul-2017 Instruction Type:Provider Instructions for Treatment How to access health informa tion online Indication:Non-smoker Start:08-May-2017 Instruction Type:Patient Education How to access health informa tion online - Detail Indication:Non-smoker Start:08-May-2017 Instruction Type:Patient Education Patient Instructions Indication:Non-smoker Start:08-May-2017 Instruction Type:Provider Instructions for Treatment How to access health informa tion online Indication:Non-smoker Start:22-Apr-2017 Instruction Type:Patient Education How to access health informa tion online - Detail Indication:Non-smoker Start:22-Apr-2017 Instruction Type:Patient Education Patient Instructions Indication:Non-smoker Start:22-Apr-2017 Instruction Type:Provider Instructions for Treatment How to access health informa tion online Indication:BMI less than 19,adult Start:14-Nov-2016 Instruction Type:Patient Education How to access health informa tion online - Detail Indication:BMI less than 19,adult Start:14-Nov-2016 Instruction Type:Patient Education Patient Instructions Indication:BMI less than 19,adult Start:14-Nov-2016 Instruction Type:Provider Instructions for Treatment Patient Instructions Indication:Benign essential hypertension Start:08-Sep-2016 Instruction Type:Provider Instructions for Treatment How to access health informa tion online Indication:Non-smoker Start:28-Aug-2016 Instruction Type:Patient Education How to access health informa tion online - Detail Indication:Non-smoker Start:28-Aug-2016 Instruction Type:Patient Education Patient Instructions Indication:Non-smoker Start:28-Aug-2016 Instruction Type:Provider Instructions for Treatment How to access health informa tion online Indication:BMI between 19-24,adult Start:24-Apr-2016 Instruction Type:Patient Education How to access health informa tion online - Detail Indication:BMI between 19-24,adult Start:24-Apr-2016 Instruction Type:Patient Education Patient Instructions Indication:BMI between 19-24,adult Start:24-Apr-2016 Instruction Type:Provider Instructions for Treatment Patient Instructions 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.) Start:02-Jul-2015 Instruction Type:Provider Instructions for Treatment How to access health informa tion online Indication:Anxiety Start:02-Jul-2015 Instruction Type:Patient Education How to access health informa tion online - Detail Indication:Anxiety Start:02-Jul-2015 Instruction Type:Patient Education Patient Instructions Indication:Anxiety Start:27-Nov-2011 Instruction Type:Provider Instructions for Treatment [facility]; [facility] Work Phone: Instructions* Name Dates Details Patient Instructions Indication:Non-smoker Start:26-Jun-2022 Instruction Type:Provider Instructions for Treatment How to Access Health Informa tion Online using Patient Portal and [employer] Apps Indication:Non-smoker Start:26-Jun-2022 Instruction Type:Patient Education Patient Instructions Indication:Non-smoker Start:16-Jun-2022 Instruction Type:Provider Instructions for Treatment How to Access Health Informa tion Online using Patient Portal and [employer] Apps Indication:Non-smoker Start:16-Jun-2022 Instruction Type:Patient Education cardiovascular counseling Indication:Cardiomyopathy Start:17-Mar-2022 Instruction Type:Provider Instructions for Treatment Patient Instructions Indication:Non-smoker Start:17-Mar-2022 Instruction Type:Provider Instructions for Treatment How to Access Health Informa tion Online using Patient Portal and [employer] Apps Indication:Non-smoker Start:17-Mar-2022 Instruction Type:Patient Education Patient Instructions Indication:BMI less than 19,adult Start:12-Dec-2021 Instruction Type:Provider Instructions for Treatment How to Access Health Informa tion Online using Patient Portal and [employer] Apps Indication:BMI less than 19,adult Start:12-Dec-2021 Instruction Type:Patient Education Patient Instructions Indication:BMI less than 19,adult Start:15-Apr-2021 Instruction Type:Provider Instructions for Treatment How to Access Health Informa tion Online using Patient Portal and [employer] Apps Indication:BMI less than 19,adult Start:15-Apr-2021 Instruction Type:Patient Education Patient Instructions Indication:BMI less than 19,adult Start:14-Mar-2021 Instruction Type:Provider Instructions for Treatment How to Access Health Informa tion Online using Patient Portal and [employer] Apps Indication:BMI less than 19,adult Start:14-Mar-2021 Instruction Type:Patient Education Patient Instructions Indication:Non-smoker Start:11-Feb-2021 Instruction Type:Provider Instructions for Treatment How to Access Health Informa tion Online using Patient Portal and [employer] Apps Indication:Non-smoker Start:11-Feb-2021 Instruction Type:Patient Education Patient Instructions Indication:BMI less than 19,adult Start:02-Nov-2020 Instruction Type:Provider Instructions for Treatment How to Access Health Informa tion Online using Patient Portal and [employer] Apps Indication:BMI less than 19,adult Start:02-Nov-2020 Instruction Type:Patient Education Patient Instructions Indication:BMI less than 19,adult Start:25-Oct-2020 Instruction Type:Provider Instructions for Treatment How to Access Health Informa tion Online using Patient Portal and [employer] Apps Indication:BMI less than 19,adult Start:25-Oct-2020 Instruction Type:Patient Education Patient Instructions Indication:BMI less than 19,adult Start:22-Oct-2020 Instruction Type:Provider Instructions for Treatment How to Access Health Informa tion Online using Patient Portal and [employer] Apps Indication:BMI less than 19,adult Start:22-Oct-2020 Instruction Type:Patient Education How to Access Health Informa tion Online using Patient Portal and [employer] Apps Indication:Non-smoker Start:08-Aug-2020 Instruction Type:Patient Education Patient Instructions Indication:Non-smoker Start:08-Aug-2020 Instruction Type:Provider Instructions for Treatment How to Access Health Informa tion Online using Patient Portal and [employer] Apps Indication:Non-smoker Start:09-May-2020 Instruction Type:Patient Education Patient Instructions Indication:Non-smoker Start:09-May-2020 Instruction Type:Provider Instructions for Treatment Patient Instructions Indication:[place]ills Start:04-May-2020 Instruction Type:Provider Instructions for Treatment How to Access Health Informa tion Online using Patient Portal and [employer] Apps Indication:Non-smoker Start:06-Apr-2020 Instruction Type:Patient Education Patient Instructions Indication:Non-smoker Start:06-Apr-2020 Instruction Type:Provider Instructions for Treatment How to access health informa tion online Indication:Non-smoker Start:13-Oct-2019 Instruction Type:Patient Education How to access health informa tion online - Detail Indication:Non-smoker Start:13-Oct-2019 Instruction Type:Patient Education Patient Instructions Indication:Non-smoker Start:13-Oct-2019 Instruction Type:Provider Instructions for Treatment How to access health informa tion online Indication:Non-smoker Start:03-Oct-2019 Instruction Type:Patient Education How to access health informa tion online - Detail Indication:Non-smoker Start:03-Oct-2019 Instruction Type:Patient Education Patient Instructions Indication:Non-smoker Start:03-Oct-2019 Instruction Type:Provider Instructions for Treatment How to access health informa tion online Indication:BMI less than 19,adult Start:17-Aug-2019 Instruction Type:Patient Education How to access health informa tion online - Detail Indication:BMI less than 19,adult Start:17-Aug-2019 Instruction Type:Patient Education Patient Instructions Indication:BMI less than 19,adult Start:17-Aug-2019 Instruction Type:Provider Instructions for Treatment How to access health informa tion online Indication:Non-smoker Start:15-Nov-2018 Instruction Type:Patient Education How to access health informa tion online - Detail Indication:Non-smoker Start:15-Nov-2018 Instruction Type:Patient Education Patient Instructions Indication:Skin rash Start:15-Nov-2018 Instruction Type:Provider Instructions for Treatment How to access health informa tion online Indication:Non-smoker Start:01-Oct-2018 Instruction Type:Patient Education How to access health informa tion online - Detail Indication:Non-smoker Start:01-Oct-2018 Instruction Type:Patient Education Patient Instructions Indication:Non-smoker Start:01-Oct-2018 Instruction Type:Provider Instructions for Treatment How to access health informa tion online Indication:Non-smoker Start:09-Sep-2018 Instruction Type:Patient Education How to access health informa tion online - Detail Indication:Non-smoker Start:09-Sep-2018 Instruction Type:Patient Education Patient Instructions Indication:Elevated blood pressure reading Start:09-Sep-2018 Instruction Type:Provider Instructions for Treatment How to access health informa tion online Indication:BMI between 19-24,adult Start:12-Aug-2018 Instruction Type:Patient Education How to access health informa tion online - Detail Indication:BMI between 19-24,adult Start:12-Aug-2018 Instruction Type:Patient Education Patient Instructions Indication:Abdominal pain Start:12-Aug-2018 Instruction Type:Provider Instructions for Treatment How to access health informa tion online Indication:Non-smoker Start:28-May-2018 Instruction Type:Patient Education How to access health informa tion online - Detail Indication:Non-smoker Start:28-May-2018 Instruction Type:Patient Education Patient Instructions Indication:Non-smoker Start:28-May-2018 Instruction Type:Provider Instructions for Treatment How to access health informa tion online Indication:Non-smoker Start:14-Jul-2017 Instruction Type:Patient Education How to access health informa tion online - Detail Indication:Non-smoker Start:14-Jul-2017 Instruction Type:Patient Education Patient Instructions Indication:Non-smoker Start:14-Jul-2017 Instruction Type:Provider Instructions for Treatment How to access health informa tion online Indication:Non-smoker Start:08-May-2017 Instruction Type:Patient Education How to access health informa tion online - Detail Indication:Non-smoker Start:08-May-2017 Instruction Type:Patient Education Patient Instructions Indication:Non-smoker Start:08-May-2017 Instruction Type:Provider Instructions for Treatment How to access health informa tion online Indication:Non-smoker Start:22-Apr-2017 Instruction Type:Patient Education How to access health informa tion online - Detail Indication:Non-smoker Start:22-Apr-2017 Instruction Type:Patient Education Patient Instructions Indication:Non-smoker Start:22-Apr-2017 Instruction Type:Provider Instructions for Treatment How to access health informa tion online Indication:BMI less than 19,adult Start:14-Nov-2016 Instruction Type:Patient Education How to access health informa tion online - Detail Indication:BMI less than 19,adult Start:14-Nov-2016 Instruction Type:Patient Education Patient Instructions Indication:BMI less than 19,adult Start:14-Nov-2016 Instruction Type:Provider Instructions for Treatment Patient Instructions Indication:Benign essential hypertension Start:08-Sep-2016 Instruction Type:Provider Instructions for Treatment How to access health informa tion online Indication:Non-smoker Start:28-Aug-2016 Instruction Type:Patient Education How to access health informa tion online - Detail Indication:Non-smoker Start:28-Aug-2016 Instruction Type:Patient Education Patient Instructions Indication:Non-smoker Start:28-Aug-2016 Instruction Type:Provider Instructions for Treatment How to access health informa tion online Indication:BMI between 19-24,adult Start:24-Apr-2016 Instruction Type:Patient Education How to access health informa tion online - Detail Indication:BMI between 19-24,adult Start:24-Apr-2016 Instruction Type:Patient Education Patient Instructions Indication:BMI between 19-24,adult Start:24-Apr-2016 Instruction Type:Provider Instructions for Treatment Patient Instructions 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.) Start:02-Jul-2015 Instruction Type:Provider Instructions for Treatment How to access health informa tion online Indication:Anxiety Start:02-Jul-2015 Instruction Type:Patient Education How to access health informa tion online - Detail Indication:Anxiety Start:02-Jul-2015 Instruction Type:Patient Education Patient Instructions Indication:Anxiety Start:27-Nov-2011 Instruction Type:Provider Instructions for Treatment [facility]; [facility] Work Phone: Instructions* Name Dates Details Patient Instructions Indication:Non-smoker Start:26-Jun-2022 Instruction Type:Provider Instructions for Treatment How to Access Health Informa tion Online using Patient Portal and [employer]rd [employer] Apps Indication:Non-smoker Start:26-Jun-2022 Instruction Type:Patient Education Patient Instructions Indication:Non-smoker Start:16-Jun-2022 Instruction Type:Provider Instructions for Treatment How to Access Health Informa tion Online using Patient Portal and [employer]rd [employer] Apps Indication:Non-smoker Start:16-Jun-2022 Instruction Type:Patient Education cardiovascular counseling Indication:Cardiomyopathy Start:17-Mar-2022 Instruction Type:Provider Instructions for Treatment Patient Instructions Indication:Non-smoker Start:17-Mar-2022 Instruction Type:Provider Instructions for Treatment How to Access Health Informa tion Online using Patient Portal and [employer]rd [employer] Apps Indication:Non-smoker Start:17-Mar-2022 Instruction Type:Patient Education Patient Instructions Indication:BMI less than 19,adult Start:12-Dec-2021 Instruction Type:Provider Instructions for Treatment How to Access Health Informa tion Online using Patient Portal and [employer]rd [employer] Apps Indication:BMI less than 19,adult Start:12-Dec-2021 Instruction Type:Patient Education Patient Instructions Indication:BMI less than 19,adult Start:15-Apr-2021 Instruction Type:Provider Instructions for Treatment How to Access Health Informa tion Online using Patient Portal and [employer]rd [employer] Apps Indication:BMI less than 19,adult Start:15-Apr-2021 Instruction Type:Patient Education Patient Instructions Indication:BMI less than 19,adult Start:14-Mar-2021 Instruction Type:Provider Instructions for Treatment How to Access Health Informa tion Online using Patient Portal and [employer]rd [employer] Apps Indication:BMI less than 19,adult Start:14-Mar-2021 Instruction Type:Patient Education Patient Instructions Indication:Non-smoker Start:11-Feb-2021 Instruction Type:Provider Instructions for Treatment How to Access Health Informa tion Online using Patient Portal and [employer]rd [employer] Apps Indication:Non-smoker Start:11-Feb-2021 Instruction Type:Patient Education Patient Instructions Indication:BMI less than 19,adult Start:02-Nov-2020 Instruction Type:Provider Instructions for Treatment How to Access Health Informa tion Online using Patient Portal and [employer] Apps Indication:BMI less than 19,adult Start:02-Nov-2020 Instruction Type:Patient Education Patient Instructions Indication:BMI less than 19,adult Start:25-Oct-2020 Instruction Type:Provider Instructions for Treatment How to Access Health Informa tion Online using Patient Portal and [employer]rd [employer] Apps Indication:BMI less than 19,adult Start:25-Oct-2020 Instruction Type:Patient Education Patient Instructions Indication:BMI less than 19,adult Start:22-Oct-2020 Instruction Type:Provider Instructions for Treatment How to Access Health Informa tion Online using Patient Portal and [employer]rd [employer] Apps Indication:BMI less than 19,adult Start:22-Oct-2020 Instruction Type:Patient Education How to Access Health Informa tion Online using Patient Portal and [employer] Apps Indication:Non-smoker Start:08-Aug-2020 Instruction Type:Patient Education Patient Instructions Indication:Non-smoker Start:08-Aug-2020 Instruction Type:Provider Instructions for Treatment How to Access Health Informa tion Online using Patient Portal and [employer]rd [employer] Apps Indication:Non-smoker Start:09-May-2020 Instruction Type:Patient Education Patient Instructions Indication:Non-smoker Start:09-May-2020 Instruction Type:Provider Instructions for Treatment Patient Instructions Indication:[place] Start:04-May-2020 Instruction Type:Provider Instructions for Treatment How to Access Health Informa tion Online using Patient Portal and [employer]rd [employer] Apps Indication:Non-smoker Start:06-Apr-2020 Instruction Type:Patient Education Patient Instructions Indication:Non-smoker Start:06-Apr-2020 Instruction Type:Provider Instructions for Treatment How to access health informa tion online Indication:Non-smoker Start:13-Oct-2019 Instruction Type:Patient Education How to access health informa tion online - Detail Indication:Non-smoker Start:13-Oct-2019 Instruction Type:Patient Education Patient Instructions Indication:Non-smoker Start:13-Oct-2019 Instruction Type:Provider Instructions for Treatment How to access health informa tion online Indication:Non-smoker Start:03-Oct-2019 Instruction Type:Patient Education How to access health informa tion online - Detail Indication:Non-smoker Start:03-Oct-2019 Instruction Type:Patient Education Patient Instructions Indication:Non-smoker Start:03-Oct-2019 Instruction Type:Provider Instructions for Treatment How to access health informa tion online Indication:BMI less than 19,adult Start:17-Aug-2019 Instruction Type:Patient Education How to access health informa tion online - Detail Indication:BMI less than 19,adult Start:17-Aug-2019 Instruction Type:Patient Education Patient Instructions Indication:BMI less than 19,adult Start:17-Aug-2019 Instruction Type:Provider Instructions for Treatment How to access health informa tion online Indication:Non-smoker Start:15-Nov-2018 Instruction Type:Patient Education How to access health informa tion online - Detail Indication:Non-smoker Start:15-Nov-2018 Instruction Type:Patient Education Patient Instructions Indication:Skin rash Start:15-Nov-2018 Instruction Type:Provider Instructions for Treatment How to access health informa tion online Indication:Non-smoker Start:01-Oct-2018 Instruction Type:Patient Education How to access health informa tion online - Detail Indication:Non-smoker Start:01-Oct-2018 Instruction Type:Patient Education Patient Instructions Indication:Non-smoker Start:01-Oct-2018 Instruction Type:Provider Instructions for Treatment How to access health informa tion online Indication:Non-smoker Start:09-Sep-2018 Instruction Type:Patient Education How to access health informa tion online - Detail Indication:Non-smoker Start:09-Sep-2018 Instruction Type:Patient Education Patient Instructions Indication:Elevated blood pressure reading Start:09-Sep-2018 Instruction Type:Provider Instructions for Treatment How to access health informa tion online Indication:BMI between 19-24,adult Start:12-Aug-2018 Instruction Type:Patient Education How to access health informa tion online - Detail Indication:BMI between 19-24,adult Start:12-Aug-2018 Instruction Type:Patient Education Patient Instructions Indication:Abdominal pain Start:12-Aug-2018 Instruction Type:Provider Instructions for Treatment How to access health informa tion online Indication:Non-smoker Start:28-May-2018 Instruction Type:Patient Education How to access health informa tion online - Detail Indication:Non-smoker Start:28-May-2018 Instruction Type:Patient Education Patient Instructions Indication:Non-smoker Start:28-May-2018 Instruction Type:Provider Instructions for Treatment How to access health informa tion online Indication:Non-smoker Start:14-Jul-2017 Instruction Type:Patient Education How to access health informa tion online - Detail Indication:Non-smoker Start:14-Jul-2017 Instruction Type:Patient Education Patient Instructions Indication:Non-smoker Start:14-Jul-2017 Instruction Type:Provider Instructions for Treatment How to access health informa tion online Indication:Non-smoker Start:08-May-2017 Instruction Type:Patient Education How to access health informa tion online - Detail Indication:Non-smoker Start:08-May-2017 Instruction Type:Patient Education Patient Instructions Indication:Non-smoker Start:08-May-2017 Instruction Type:Provider Instructions for Treatment How to access health informa tion online Indication:Non-smoker Start:22-Apr-2017 Instruction Type:Patient Education How to access health informa tion online - Detail Indication:Non-smoker Start:22-Apr-2017 Instruction Type:Patient Education Patient Instructions Indication:Non-smoker Start:22-Apr-2017 Instruction Type:Provider Instructions for Treatment How to access health informa tion online Indication:BMI less than 19,adult Start:14-Nov-2016 Instruction Type:Patient Education How to access health informa tion online - Detail Indication:BMI less than 19,adult Start:14-Nov-2016 Instruction Type:Patient Education Patient Instructions Indication:BMI less than 19,adult Start:14-Nov-2016 Instruction Type:Provider Instructions for Treatment Patient Instructions Indication:Benign essential hypertension Start:08-Sep-2016 Instruction Type:Provider Instructions for Treatment How to access health informa tion online Indication:Non-smoker Start:28-Aug-2016 Instruction Type:Patient Education How to access health informa tion online - Detail Indication:Non-smoker Start:28-Aug-2016 Instruction Type:Patient Education Patient Instructions Indication:Non-smoker Start:28-Aug-2016 Instruction Type:Provider Instructions for Treatment How to access health informa tion online Indication:BMI between 19-24,adult Start:24-Apr-2016 Instruction Type:Patient Education How to access health informa tion online - Detail Indication:BMI between 19-24,adult Start:24-Apr-2016 Instruction Type:Patient Education Patient Instructions Indication:BMI between 19-24,adult Start:24-Apr-2016 Instruction Type:Provider Instructions for Treatment Patient Instructions 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.) Start:02-Jul-2015 Instruction Type:Provider Instructions for Treatment How to access health informa tion online Indication:Anxiety Start:02-Jul-2015 Instruction Type:Patient Education How to access health informa tion online - Detail Indication:Anxiety Start:02-Jul-2015 Instruction Type:Patient Education Patient Instructions Indication:Anxiety Start:27-Nov-2011 Instruction Type:Provider Instructions for Treatment [facility]; [facility] Work Phone: Instructions* Name Dates Details Patient Instructions Indication:Non-smoker Start:26-Jun-2022 Instruction Type:Provider Instructions for Treatment How to Access Health Informa tion Online using Patient Portal and [employer]rd [employer] Apps Indication:Non-smoker Start:26-Jun-2022 Instruction Type:Patient Education Patient Instructions Indication:Non-smoker Start:16-Jun-2022 Instruction Type:Provider Instructions for Treatment How to Access Health Informa tion Online using Patient Portal and [employer]rd [employer] Apps Indication:Non-smoker Start:16-Jun-2022 Instruction Type:Patient Education cardiovascular counseling Indication:Cardiomyopathy Start:17-Mar-2022 Instruction Type:Provider Instructions for Treatment Patient Instructions Indication:Non-smoker Start:17-Mar-2022 Instruction Type:Provider Instructions for Treatment How to Access Health Informa tion Online using Patient Portal and [employer]rd [employer] Apps Indication:Non-smoker Start:17-Mar-2022 Instruction Type:Patient Education Patient Instructions Indication:BMI less than 19,adult Start:12-Dec-2021 Instruction Type:Provider Instructions for Treatment How to Access Health Informa tion Online using Patient Portal and [employer]rd [employer] Apps Indication:BMI less than 19,adult Start:12-Dec-2021 Instruction Type:Patient Education Patient Instructions Indication:BMI less than 19,adult Start:15-Apr-2021 Instruction Type:Provider Instructions for Treatment How to Access Health Informa tion Online using Patient Portal and [employer]rd [employer] Apps Indication:BMI less than 19,adult Start:15-Apr-2021 Instruction Type:Patient Education Patient Instructions Indication:BMI less than 19,adult Start:14-Mar-2021 Instruction Type:Provider Instructions for Treatment How to Access Health Informa tion Online using Patient Portal and [employer]rd [employer] Apps Indication:BMI less than 19,adult Start:14-Mar-2021 Instruction Type:Patient Education Patient Instructions Indication:Non-smoker Start:11-Feb-2021 Instruction Type:Provider Instructions for Treatment How to Access Health Informa tion Online using Patient Portal and [employer]rd [employer] Apps Indication:Non-smoker Start:11-Feb-2021 Instruction Type:Patient Education Patient Instructions Indication:BMI less than 19,adult Start:02-Nov-2020 Instruction Type:Provider Instructions for Treatment How to Access Health Informa tion Online using Patient Portal and [employer]rd [employer] Apps Indication:BMI less than 19,adult Start:02-Nov-2020 Instruction Type:Patient Education Patient Instructions Indication:BMI less than 19,adult Start:25-Oct-2020 Instruction Type:Provider Instructions for Treatment How to Access Health Informa tion Online using Patient Portal and [employer]rd [employer] Apps Indication:BMI less than 19,adult Start:25-Oct-2020 Instruction Type:Patient Education Patient Instructions Indication:BMI less than 19,adult Start:22-Oct-2020 Instruction Type:Provider Instructions for Treatment How to Access Health Informa tion Online using Patient Portal and [employer]rd [employer] Apps Indication:BMI less than 19,adult Start:22-Oct-2020 Instruction Type:Patient Education How to Access Health Informa tion Online using Patient Portal and [employer]rd [employer] Apps Indication:Non-smoker Start:08-Aug-2020 Instruction Type:Patient Education Patient Instructions Indication:Non-smoker Start:08-Aug-2020 Instruction Type:Provider Instructions for Treatment How to Access Health Informa tion Online using Patient Portal and [employer]rd [employer] Apps Indication:Non-smoker Start:09-May-2020 Instruction Type:Patient Education Patient Instructions Indication:Non-smoker Start:09-May-2020 Instruction Type:Provider Instructions for Treatment Patient Instructions Indication:[place] Start:04-May-2020 Instruction Type:Provider Instructions for Treatment How to Access Health Informa tion Online using Patient Portal and [employer]rd [employer] Apps Indication:Non-smoker Start:06-Apr-2020 Instruction Type:Patient Education Patient Instructions Indication:Non-smoker Start:06-Apr-2020 Instruction Type:Provider Instructions for Treatment How to access health informa tion online Indication:Non-smoker Start:13-Oct-2019 Instruction Type:Patient Education How to access health informa tion online - Detail Indication:Non-smoker Start:13-Oct-2019 Instruction Type:Patient Education Patient Instructions Indication:Non-smoker Start:13-Oct-2019 Instruction Type:Provider Instructions for Treatment How to access health informa tion online Indication:Non-smoker Start:03-Oct-2019 Instruction Type:Patient Education How to access health informa tion online - Detail Indication:Non-smoker Start:03-Oct-2019 Instruction Type:Patient Education Patient Instructions Indication:Non-smoker Start:03-Oct-2019 Instruction Type:Provider Instructions for Treatment How to access health informa tion online Indication:BMI less than 19,adult Start:17-Aug-2019 Instruction Type:Patient Education How to access health informa tion online - Detail Indication:BMI less than 19,adult Start:17-Aug-2019 Instruction Type:Patient Education Patient Instructions Indication:BMI less than 19,adult Start:17-Aug-2019 Instruction Type:Provider Instructions for Treatment How to access health informa tion online Indication:Non-smoker Start:15-Nov-2018 Instruction Type:Patient Education How to access health informa tion online - Detail Indication:Non-smoker Start:15-Nov-2018 Instruction Type:Patient Education Patient Instructions Indication:Skin rash Start:15-Nov-2018 Instruction Type:Provider Instructions for Treatment How to access health informa tion online Indication:Non-smoker Start:01-Oct-2018 Instruction Type:Patient Education How to access health informa tion online - Detail Indication:Non-smoker Start:01-Oct-2018 Instruction Type:Patient Education Patient Instructions Indication:Non-smoker Start:01-Oct-2018 Instruction Type:Provider Instructions for Treatment How to access health informa tion online Indication:Non-smoker Start:09-Sep-2018 Instruction Type:Patient Education How to access health informa tion online - Detail Indication:Non-smoker Start:09-Sep-2018 Instruction Type:Patient Education Patient Instructions Indication:Elevated blood pressure reading Start:09-Sep-2018 Instruction Type:Provider Instructions for Treatment How to access health informa tion online Indication:BMI between 19-24,adult Start:12-Aug-2018 Instruction Type:Patient Education How to access health informa tion online - Detail Indication:BMI between 19-24,adult Start:12-Aug-2018 Instruction Type:Patient Education Patient Instructions Indication:Abdominal pain Start:12-Aug-2018 Instruction Type:Provider Instructions for Treatment How to access health informa tion online Indication:Non-smoker Start:28-May-2018 Instruction Type:Patient Education How to access health informa tion online - Detail Indication:Non-smoker Start:28-May-2018 Instruction Type:Patient Education Patient Instructions Indication:Non-smoker Start:28-May-2018 Instruction Type:Provider Instructions for Treatment How to access health informa tion online Indication:Non-smoker Start:14-Jul-2017 Instruction Type:Patient Education How to access health informa tion online - Detail Indication:Non-smoker Start:14-Jul-2017 Instruction Type:Patient Education Patient Instructions Indication:Non-smoker Start:14-Jul-2017 Instruction Type:Provider Instructions for Treatment How to access health informa tion online Indication:Non-smoker Start:08-May-2017 Instruction Type:Patient Education How to access health informa tion online - Detail Indication:Non-smoker Start:08-May-2017 Instruction Type:Patient Education Patient Instructions Indication:Non-smoker Start:08-May-2017 Instruction Type:Provider Instructions for Treatment How to access health informa tion online Indication:Non-smoker Start:22-Apr-2017 Instruction Type:Patient Education How to access health informa tion online - Detail Indication:Non-smoker Start:22-Apr-2017 Instruction Type:Patient Education Patient Instructions Indication:Non-smoker Start:22-Apr-2017 Instruction Type:Provider Instructions for Treatment How to access health informa tion online Indication:BMI less than 19,adult Start:14-Nov-2016 Instruction Type:Patient Education How to access health informa tion online - Detail Indication:BMI less than 19,adult Start:14-Nov-2016 Instruction Type:Patient Education Patient Instructions Indication:BMI less than 19,adult Start:14-Nov-2016 Instruction Type:Provider Instructions for Treatment Patient Instructions Indication:Benign essential hypertension Start:08-Sep-2016 Instruction Type:Provider Instructions for Treatment How to access health informa tion online Indication:Non-smoker Start:28-Aug-2016 Instruction Type:Patient Education How to access health informa tion online - Detail Indication:Non-smoker Start:28-Aug-2016 Instruction Type:Patient Education Patient Instructions Indication:Non-smoker Start:28-Aug-2016 Instruction Type:Provider Instructions for Treatment How to access health informa tion online Indication:BMI between 19-24,adult Start:24-Apr-2016 Instruction Type:Patient Education How to access health informa tion online - Detail Indication:BMI between 19-24,adult Start:24-Apr-2016 Instruction Type:Patient Education Patient Instructions Indication:BMI between 19-24,adult Start:24-Apr-2016 Instruction Type:Provider Instructions for Treatment Patient Instructions 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.) Start:02-Jul-2015 Instruction Type:Provider Instructions for Treatment How to access health informa tion online Indication:Anxiety Start:02-Jul-2015 Instruction Type:Patient Education How to access health informa tion online - Detail Indication:Anxiety Start:02-Jul-2015 Instruction Type:Patient Education Patient Instructions Indication:Anxiety Start:27-Nov-2011 Instruction Type:Provider Instructions for Treatment [facility] Work Phone: reason for referral (narrative)* Outpatient Procedure (Routine) - Pending Review Specialty Diagnoses / Procedures Referred By Contac t [facility] Diagnoses Screening for ischemic heart disease Procedures ECG COMPLETE ECG ROUTINE ECG W/LEAST 12 LDS W/I&R Lissette Curiel MD [address] [place] [id number] [facility] [address] [place] [id number] Referral ID Status Reason Start Date Expiration Date Visits Requested Visits Authorized [id number] Pending Review Auto-Generat ed Referral 3 01/06/2024 1 1 [facility] for referral (narrative)No reason for referral information availableWSamaritan [facility] Work Phone: Summary Purpose Family History No Family History Records FoundUnknown Family Member Name Dates Details Brother 1 Comments:Heart/lung dx, HBP, high cholesterol, hx. coronary bypass x5 Status:Active Father Comments:-prostate cancer de ceased age 90-electrical bunch bundle at 65, pacemaker at age 85 Status:Active Mother Comments:colorectal cancer, heart disease hx. coronary bypass still living Status:Active Unknown Family Member Name Dates Details Brother 1 Comments:Heart/lung dx, HBP, high cholesterol, hx. coronary bypass x5 Status:Active Father Comments:-prostate cancer de ceased age 90-electrical bunch bundle at 65, pacemaker at age 85 Status:Active Mother Comments:colorectal cancer, heart disease hx. coronary bypass still living Status:Active Unknown Family Member Name Dates Details Brother 1 Comments:Heart/lung dx, HBP, high cholesterol, hx. coronary bypass x5 Status:Active Father Comments:-prostate cancer de ceased age 90-electrical bunch bundle at 65, pacemaker at age 85 Status:Active Mother Comments:colorectal cancer, heart disease hx. coronary bypass still living Status:Active Unknown Family Member Name Dates Details Brother 1 Comments:Heart/lung dx, HBP, high cholesterol, hx. coronary bypass x5 Status:Active Father Comments:-prostate cancer de ceased age 90-electrical bunch bundle at 65, pacemaker at age 85 Status:Active Mother Comments:colorectal cancer, heart disease hx. coronary bypass still living Status:Active Unknown Family Member Name Dates Details Brother 1 Comments:Heart/lung dx, HBP, high cholesterol, hx. coronary bypass x5 Status:Active Father Comments:-prostate cancer de ceased age 90-electrical bunch bundle at 65, pacemaker at age 85 Status:Active Mother Comments:colorectal cancer, heart disease hx. coronary bypass still living Status:Active Unknown Family Member Name Dates Details Brother 1 Comments:Heart/lung dx, HBP, high cholesterol, hx. coronary bypass x5 Status:Active Father Comments:-prostate cancer de ceased age 90-electrical bunch bundle at 65, pacemaker at age 85 Status:Active Mother Comments:colorectal cancer, heart disease hx. coronary bypass still living Status:Active Unknown Family Member Name Dates Details Brother 1 Comments:Heart/lung dx, HBP, high cholesterol, hx. coronary bypass x5 Status:Active Father Comments:-prostate cancer de ceased age 90-electrical bunch bundle at 65, pacemaker at age 85 Status:Active Mother Comments:colorectal cancer, heart disease hx. coronary bypass still living Status:Active Unknown Family Member Name Dates Details Brother 1 Comments:Heart/lung dx, HBP, high cholesterol, hx. coronary bypass x5 Status:Active Father Comments:-prostate cancer de ceased age 90-electrical bunch bundle at 65, pacemaker at age 85 Status:Active Mother Comments:colorectal cancer, heart disease hx. coronary bypass still living Status:Active Unknown Family Member Name Dates Details Brother 1 Comments:Heart/lung dx, HBP, high cholesterol, hx. coronary bypass x5 Status:Active Father Comments:-prostate cancer de ceased age 90-electrical bunch bundle at 65, pacemaker at age 85 Status:Active Mother Comments:colorectal cancer, heart disease hx. coronary bypass still living Status:Active Unknown Family Member Name Dates Details Brother 1 Comments:Heart/lung dx, HBP, high cholesterol, hx. coronary bypass x5 Status:Active Father Comments:-prostate cancer de ceased age 90-electrical bunch bundle at 65, pacemaker at age 85 Status:Active Mother Comments:colorectal cancer, heart disease hx. coronary bypass still living Status:Active Unknown Family Member Name Dates Details Brother 1 Comments:Heart/lung dx, HBP, high cholesterol, hx. coronary bypass x5 Status:Active Father Comments:-prostate cancer de ceased age 90-electrical bunch bundle at 65, pacemaker at age 85 Status:Active Mother Comments:colorectal cancer, heart disease hx. coronary bypass still living Status:Active Unknown Family Member Name Dates Details Brother 1 Comments:Heart/lung dx, HBP, high cholesterol, hx. coronary bypass x5 Status:Active Father Comments:-prostate cancer de ceased age 90-electrical bunch bundle at 65, pacemaker at age 85 Status:Active Mother Comments:colorectal cancer, heart disease hx. coronary bypass still living Status:Active Unknown Family Member Name Dates Details Brother 1 Comments:Heart/lung dx, HBP, high cholesterol, hx. coronary bypass x5 Status:Active Father Comments:-prostate cancer de ceased age 90-electrical bunch bundle at 65, pacemaker at age 85 Status:Active Mother Comments:colorectal cancer, heart disease hx. coronary bypass still living Status:Active Unknown Family Member Name Dates Details Brother 1 Comments:Heart/lung dx, HBP, high cholesterol, hx. coronary bypass x5 Status:Active Father Comments:-prostate cancer de ceased age 90-electrical bunch bundle at 65, pacemaker at age 85 Status:Active Mother Comments:colorectal cancer, heart disease hx. coronary bypass still living Status:Active Unknown Family Member Name Dates Details Brother 1 Comments:Heart/lung dx, HBP, high cholesterol, hx. coronary bypass x5 Status:Active Father Comments:-prostate cancer de ceased age 90-electrical bunch bundle at 65, pacemaker at age 85 Status:Active Mother Comments:colorectal cancer, heart disease hx. coronary bypass still living Status:Active Unknown Family Member Name Dates Details Brother 1 Comments:Heart/lung dx, HBP, high cholesterol, hx. coronary bypass x5 Status:Active Father Comments:-prostate cancer de ceased age 90-electrical bunch bundle at 65, pacemaker at age 85 Status:Active Mother Comments:colorectal cancer, heart disease hx. coronary bypass still living Status:Active Unknown Family Member Name Dates Details Brother 1 Comments:Heart/lung dx, HBP, high cholesterol, hx. coronary bypass x5 Status:Active Father Comments:-prostate cancer de ceased age 90-electrical bunch bundle at 65, pacemaker at age 85 Status:Active Mother Comments:colorectal cancer, heart disease hx. coronary bypass still living Status:Active Unknown Family Member Name Dates Details Brother 1 Comments:Heart/lung dx, HBP, high cholesterol, hx. coronary bypass x5 Status:Active Father Comments:-prostate cancer de ceased age 90-electrical bunch bundle at 65, pacemaker at age 85 Status:Active Mother Comments:colorectal cancer, heart disease hx. coronary bypass still living Status:Active Unknown Family Member Name Dates Details Brother 1 Comments:Heart/lung dx, HBP, high cholesterol, hx. coronary bypass x5 Status:Active Father Comments:-prostate cancer de ceased age 90-electrical bunch bundle at 65, pacemaker at age 85 Status:Active Mother Comments:colorectal cancer, heart disease hx. coronary bypass still living Status:Active Unknown Family Member Name Dates Details Brother 1 Comments:Heart/lung dx, HBP, high cholesterol, hx. coronary bypass x5 Status:Active Father Comments:-prostate cancer de ceased age 90-electrical bunch bundle at 65, pacemaker at age 85 Status:Active Mother Comments:colorectal cancer, heart disease hx. coronary bypass still living Status:Active Unknown Family Member Name Dates Details Brother 1 Comments:Heart/lung dx, HBP, high cholesterol, hx. coronary bypass x5 Status:Active Father Comments:-prostate cancer de ceased age 90-electrical bunch bundle at 65, pacemaker at age 85 Status:Active Mother Comments:colorectal cancer, heart disease hx. coronary bypass still living Status:Active Unknown Family Member Name Dates Details Brother 1 Comments:Heart/lung dx, HBP, high cholesterol, hx. coronary bypass x5 Status:Active Father Comments:-prostate cancer de ceased age 90-electrical bunch bundle at 65, pacemaker at age 85 Status:Active Mother Comments:colorectal cancer, heart disease hx. coronary bypass still living Status:Active Unknown Family Member Name Dates Details Brother 1 Comments:Heart/lung dx, HBP, high cholesterol, hx. coronary bypass x5 Status:Active Father Comments:-prostate cancer de ceased age 90-electrical bunch bundle at 65, pacemaker at age 85 Status:Active Mother Comments:colorectal cancer, heart disease hx. coronary bypass still living Status:Active Unknown Family Member Name Dates Details Brother 1 Comments:Heart/lung dx, HBP, high cholesterol, hx. coronary bypass x5 Status:Active Father Comments:-prostate cancer de ceased age 90-electrical bunch bundle at 65, pacemaker at age 85 Status:Active Mother Comments:colorectal cancer, heart disease hx. coronary bypass still living Status:Active Unknown Family Member Name Dates Details Brother 1 Comments:Heart/lung dx, HBP, high cholesterol, hx. coronary bypass x5 Status:Active Father Comments:-prostate cancer de ceased age 90-electrical bunch bundle at 65, pacemaker at age 85 Status:Active Mother Comments:colorectal cancer, heart disease hx. coronary bypass still living Status:Active Unknown Family Member Name Dates Details Brother 1 Comments:Heart/lung dx, HBP, high cholesterol, hx. coronary bypass x5 Status:Active Father Comments:-prostate cancer de ceased age 90-electrical bunch bundle at 65, pacemaker at age 85 Status:Active Mother Comments:colorectal cancer, heart disease hx. coronary bypass still living Status:Active Unknown Family Member Name Dates Details Brother 1 Comments:Heart/lung dx, HBP, high cholesterol, hx. coronary bypass x5 Status:Active Father Comments:-prostate cancer de ceased age 90-electrical bunch bundle at 65, pacemaker at age 85 Status:Active Mother Comments:colorectal cancer, heart disease hx. coronary bypass still living Status:Active Unknown Family Member Name Dates Details Brother 1 Comments:Heart/lung dx, HBP, high cholesterol, hx. coronary bypass x5 Status:Active Father Comments:-prostate cancer de ceased age 90-electrical bunch bundle at 65, pacemaker at age 85 Status:Active Mother Comments:colorectal cancer, heart disease hx. coronary bypass still living Status:Active Unknown Family Member Name Dates Details Brother 1 Comments:Heart/lung dx, HBP, high cholesterol, hx. coronary bypass x5 Status:Active Father Comments:-prostate cancer de ceased age 90-electrical bunch bundle at 65, pacemaker at age 85 Status:Active Mother Comments:colorectal cancer, heart disease hx. coronary bypass still living Status:Active Unknown Family Member Name Dates Details Brother 1 Comments:Heart/lung dx, HBP, high cholesterol, hx. coronary bypass x5 Status:Active Father Comments:-prostate cancer de ceased age 90-electrical bunch bundle at 65, pacemaker at age 85 Status:Active Mother Comments:colorectal cancer, heart disease hx. coronary bypass still living Status:Active Unknown Family Member Name Dates Details Brother 1 Comments:Heart/lung dx, HBP, high cholesterol, hx. coronary bypass x5 Status:Active Father Comments:-prostate cancer de ceased age 90-electrical bunch bundle at 65, pacemaker at age 85 Status:Active Mother Comments:colorectal cancer, heart disease hx. coronary bypass still living Status:Active Unknown Family Member Name Dates Details Brother 1 Comments:Heart/lung dx, HBP, high cholesterol, hx. coronary bypass x5 Status:Active Father Comments:-prostate cancer de ceased age 90-electrical bunch bundle at 65, pacemaker at age 85 Status:Active Mother Comments:colorectal cancer, heart disease hx. coronary bypass still living Status:Active Unknown Family Member Name Dates Details Brother 1 Comments:Heart/lung dx, HBP, high cholesterol, hx. coronary bypass x5 Status:Active Father Comments:-prostate cancer de ceased age 90-electrical bunch bundle at 65, pacemaker at age 85 Status:Active Mother Comments:colorectal cancer, heart disease hx. coronary bypass still living Status:Active Unknown Family Member Name Dates Details Brother 1 Comments:Heart/lung dx, HBP, high cholesterol, hx. coronary bypass x5 Status:Active Father Comments:-prostate cancer de ceased age 90-electrical bunch bundle at 65, pacemaker at age 85 Status:Active Mother Comments:colorectal cancer, heart disease hx. coronary bypass still living Status:Active Unknown Family Member Name Dates Details Brother 1 Comments:Heart/lung dx, HBP, high cholesterol, hx. coronary bypass x5 Status:Active Father Comments:-prostate cancer de ceased age 90-electrical bunch bundle at 65, pacemaker at age 85 Status:Active Mother Comments:colorectal cancer, heart disease hx. coronary bypass still living Status:Active Unknown Family Member Name Dates Details Brother 1 Comments:Heart/lung dx, HBP, high cholesterol, hx. coronary bypass x5 Status:Active Father Comments:-prostate cancer de ceased age 90-electrical bunch bundle at 65, pacemaker at age 85 Status:Active Mother Comments:colorectal cancer, heart disease hx. coronary bypass still living Status:Active Relationship Condition Age at Onset Recorded Date/T christiano father Malignant neoplasm Unknown Coronary artery disease Unknown Presence of cardiac pacemaker Unknown Chronic obstructive pulmonary disease Unk nown brother Coronary artery disease Unknown Hypertension Unknown Cardiac disease Unknown mother Coronary artery disease Unknown Cerebrovascular accident (CVA) Unknown Malignant neoplasm Unknown Unknown Family Member Name Dates Details Brother 1 Comments:Heart/lung dx, HBP, high cholesterol, hx. coronary bypass x5 Status:Active Father Comments:-prostate cancer de ceased age 90-electrical bunch bundle at 65, pacemaker at age 85 Status:Active Mother Comments:colorectal cancer, heart disease hx. coronary bypass still living Status:Active Unknown Family Member Name Dates Details Brother 1 Comments:Heart/lung dx, HBP, high cholesterol, hx. coronary bypass x5 Status:Active Father Comments:-prostate cancer de ceased age 90-electrical bunch bundle at 65, pacemaker at age 85 Status:Active Mother Comments:colorectal cancer, heart disease hx. coronary bypass still living Status:Active Unknown Family Member Name Dates Details Brother 1 Comments:Heart/lung dx, HBP, high cholesterol, hx. coronary bypass x5 Status:Active Father Comments:-prostate cancer de ceased age 90-electrical bunch bundle at 65, pacemaker at age 85 Status:Active Mother Comments:colorectal cancer, heart disease hx. coronary bypass still living Status:Active Unknown Family Member Name Dates Details Brother 1 Comments:Heart/lung dx, HBP, high cholesterol, hx. coronary bypass x5 Status:Active Father Comments:-prostate cancer de ceased age 90-electrical bunch bundle at 65, pacemaker at age 85 Status:Active Mother Comments:colorectal cancer, heart disease hx. coronary bypass still living Status:Active Unknown Family Member Name Dates Details Brother 1 Comments:Heart/lung dx, HBP, high cholesterol, hx. coronary bypass x5 Status:Active Father Comments:-prostate cancer de ceased age 90-electrical bunch bundle at 65, pacemaker at age 85 Status:Active Mother Comments:colorectal cancer, heart disease hx. coronary bypass still living Status:Active Unknown Family Member Name Dates Details Brother 1 Comments:Heart/lung dx, HBP, high cholesterol, hx. coronary bypass x5 Status:Active Father Comments:-prostate cancer de ceased age 90-electrical bunch bundle at 65, pacemaker at age 85 Status:Active Mother Comments:colorectal cancer, heart disease hx. coronary bypass still living Status:Active Unknown Family Member Name Dates Details Brother 1 Comments:Heart/lung dx, HBP, high cholesterol, hx. coronary bypass x5 Status:Active Father Comments:-prostate cancer de ceased age 90-electrical bunch bundle at 65, pacemaker at age 85 Status:Active Mother Comments:colorectal cancer, heart disease hx. coronary bypass still living Status:Active Unknown Family Member Name Dates Details Brother 1 Comments:Heart/lung dx, HBP, high cholesterol, hx. coronary bypass x5 Status:Active Father Comments:-prostate cancer de ceased age 90-electrical bunch bundle at 65, pacemaker at age 85 Status:Active Mother Comments:colorectal cancer, heart disease hx. coronary bypass still living Status:Active Unknown Family Member Name Dates Details Brother 1 Comments:Heart/lung dx, HBP, high cholesterol, hx. coronary bypass x5 Status:Active Father Comments:-prostate cancer de ceased age 90-electrical bunch bundle at 65, pacemaker at age 85 Status:Active Mother Comments:colorectal cancer, heart disease hx. coronary bypass still living Status:Active Unknown Family Member Name Dates Details Brother 1 Comments:Heart/lung dx, HBP, high cholesterol, hx. coronary bypass x5 Status:Active Father Comments:-prostate cancer de ceased age 90-electrical bunch bundle at 65, pacemaker at age 85 Status:Active Mother Comments:colorectal cancer, heart disease hx. coronary bypass still living Status:Active Unknown Family Member Name Dates Details Brother 1 Comments:Heart/lung dx, HBP, high cholesterol, hx. coronary bypass x5 Status:Active Father Comments:-prostate cancer de ceased age 90-electrical bunch bundle at 65, pacemaker at age 85 Status:Active Mother Comments:colorectal cancer, heart disease hx. coronary bypass still living Status:Active Unknown Family Member Name Dates Details Brother 1 Comments:Heart/lung dx, HBP, high cholesterol, hx. coronary bypass x5 Status:Active Father Comments:-prostate cancer de ceased age 90-electrical bunch bundle at 65, pacemaker at age 85 Status:Active Mother Comments:colorectal cancer, heart disease hx. 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 Advance Directive(s) 04/30/2016 8:26 AM Advance Directive(s) 03/25/2016 11:48 AM Advance Directive(s) 03/24/2016 8:24 AM Advance Directive Response Recorded Date/ Time Advance Directives Yes May 31 1:49pm Living Will Yes October 27 10:36pm Power of Quality Associate Yes October 27, 2020 10:36pm Advance Directive Response Recorded Date/ Time Advance Directives Yes May 31 12:49pm Living Will Yes October 27 9:36pm Power of Quality Associate Yes October 27, 2020 9:36pm Advance Directive Response Recorded Date/ Time Advance Directives Yes May 31 1:49pm Advance Directive Response Recorded Date/ Time Do you have a Healthcare Power of Quality Associate? No October 11, 2024 11:57am Advance Directives Yes May 31 1:49pm Advance Directive Response Recorded Date/ Time Do you have a Healthcare Power of Quality Associate? Yes October 11, 2024 3:05pm Advance Directives Yes May 31 1:49pm Instructions Name Dates Details Non-smoker : How to access h ealth information online Indication:Non-smoker Non-smoker : How to access h ealth information online - Detail Indication:Non-smoker Non-smoker : Patient Instruc tions Indication:Non-smoker BMI less than 19,adult : How to access health information online Indication:BMI less than 19,adult BMI less than 19,adult : How to access health information online - Detail Indication:BMI less than 19,adult BMI less than 19,adult : Pat ient Instructions Indication:BMI less than 19,adult Benign essential hypertensio n : Patient Instructions Indication:Benign essential hypertension BMI between 19-24,adult : Ho w to access health information online Indication:BMI between 19-24,adult BMI between 19-24,adult : Ho w to access health information online - Detail Indication:BMI between 19-24,adult BMI between 19-24,adult : Pa tient Instructions Indication:BMI between 19-24,adult 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.) : Patient Instructions 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.) Anxiety : How to access heal th information online Indication:Anxiety Anxiety : How to access heal th information online - Detail Indication:Anxiety Anxiety : Patient Instructio ns Indication:Anxiety Name Dates Details Non-smoker : How to access h ealth information online Indication:Non-smoker Non-smoker : How to access h ealth information online - Detail Indication:Non-smoker Non-smoker : Patient Instruc tions Indication:Non-smoker BMI less than 19,adult : How to access health information online Indication:BMI less than 19,adult BMI less than 19,adult : How to access health information online - Detail Indication:BMI less than 19,adult BMI less than 19,adult : Pat ient Instructions Indication:BMI less than 19,adult Benign essential hypertensio n : Patient Instructions Indication:Benign essential hypertension BMI between 19-24,adult : Ho w to access health information online Indication:BMI between 19-24,adult BMI between 19-24,adult : Ho w to access health information online - Detail Indication:BMI between 19-24,adult BMI between 19-24,adult : Piero nathannt Instructions Indication:BMI between 19-24,adult 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.) : Patient Instructions 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.) Anxiety : How to access heal th information online Indication:Anxiety Anxiety : How to access heal th information online - Detail Indication:Anxiety Anxiety : Patient Instructio ns Indication:Anxiety Name Dates Details How to access health informa tion online Indication:BMI between 19-24,adult Start:12-Aug-2018 Instruction Type:Patient Education How to access health informa tion online - Detail Indication:BMI between 19-24,adult Start:12-Aug-2018 Instruction Type:Patient Education Patient Instructions Indication:Abdominal pain Start:12-Aug-2018 Instruction Type:Provider Instructions for Treatment How to access health informa tion online Indication:Non-smoker Start:28-May-2018 Instruction Type:Patient Education How to access health informa tion online - Detail Indication:Non-smoker Start:28-May-2018 Instruction Type:Patient Education Patient Instructions Indication:Non-smoker Start:28-May-2018 Instruction Type:Provider Instructions for Treatment How to access health informa tion online Indication:Non-smoker Start:14-Jul-2017 Instruction Type:Patient Education How to access health informa tion online - Detail Indication:Non-smoker Start:14-Jul-2017 Instruction Type:Patient Education Patient Instructions Indication:Non-smoker Start:14-Jul-2017 Instruction Type:Provider Instructions for Treatment How to access health informa tion online Indication:Non-smoker Start:08-May-2017 Instruction Type:Patient Education How to access health informa tion online - Detail Indication:Non-smoker Start:08-May-2017 Instruction Type:Patient Education Patient Instructions Indication:Non-smoker Start:08-May-2017 Instruction Type:Provider Instructions for Treatment How to access health informa tion online Indication:Non-smoker Start:22-Apr-2017 Instruction Type:Patient Education How to access health informa tion online - Detail Indication:Non-smoker Start:22-Apr-2017 Instruction Type:Patient Education Patient Instructions Indication:Non-smoker Start:22-Apr-2017 Instruction Type:Provider Instructions for Treatment How to access health informa tion online Indication:BMI less than 19,adult Start:14-Nov-2016 Instruction Type:Patient Education How to access health informa tion online - Detail Indication:BMI less than 19,adult Start:14-Nov-2016 Instruction Type:Patient Education Patient Instructions Indication:BMI less than 19,adult Start:14-Nov-2016 Instruction Type:Provider Instructions for Treatment Patient Instructions Indication:Benign essential hypertension Start:08-Sep-2016 Instruction Type:Provider Instructions for Treatment How to access health informa tion online Indication:Non-smoker Start:28-Aug-2016 Instruction Type:Patient Education How to access health informa tion online - Detail Indication:Non-smoker Start:28-Aug-2016 Instruction Type:Patient Education Patient Instructions Indication:Non-smoker Start:28-Aug-2016 Instruction Type:Provider Instructions for Treatment How to access health informa tion online Indication:BMI between 19-24,adult Start:24-Apr-2016 Instruction Type:Patient Education How to access health informa tion online - Detail Indication:BMI between 19-24,adult Start:24-Apr-2016 Instruction Type:Patient Education Patient Instructions Indication:BMI between 19-24,adult Start:24-Apr-2016 Instruction Type:Provider Instructions for Treatment Patient Instructions 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.) Start:02-Jul-2015 Instruction Type:Provider Instructions for Treatment How to access health informa tion online Indication:Anxiety Start:02-Jul-2015 Instruction Type:Patient Education How to access health informa tion online - Detail Indication:Anxiety Start:02-Jul-2015 Instruction Type:Patient Education Patient Instructions Indication:Anxiety Start:27-Nov-2011 Instruction Type:Provider Instructions for Treatment Name Dates Details How to access health informa tion online Indication:BMI between 19-24,adult Start:12-Aug-2018 Instruction Type:Patient Education How to access health informa tion online - Detail Indication:BMI between 19-24,adult Start:12-Aug-2018 Instruction Type:Patient Education Patient Instructions Indication:Abdominal pain Start:12-Aug-2018 Instruction Type:Provider Instructions for Treatment How to access health informa tion online Indication:Non-smoker Start:28-May-2018 Instruction Type:Patient Education How to access health informa tion online - Detail Indication:Non-smoker Start:28-May-2018 Instruction Type:Patient Education Patient Instructions Indication:Non-smoker Start:28-May-2018 Instruction Type:Provider Instructions for Treatment How to access health informa tion online Indication:Non-smoker Start:14-Jul-2017 Instruction Type:Patient Education How to access health informa tion online - Detail Indication:Non-smoker Start:14-Jul-2017 Instruction Type:Patient Education Patient Instructions Indication:Non-smoker Start:14-Jul-2017 Instruction Type:Provider Instructions for Treatment How to access health informa tion online Indication:Non-smoker Start:08-May-2017 Instruction Type:Patient Education How to access health informa tion online - Detail Indication:Non-smoker Start:08-May-2017 Instruction Type:Patient Education Patient Instructions Indication:Non-smoker Start:08-May-2017 Instruction Type:Provider Instructions for Treatment How to access health informa tion online Indication:Non-smoker Start:22-Apr-2017 Instruction Type:Patient Education How to access health informa tion online - Detail Indication:Non-smoker Start:22-Apr-2017 Instruction Type:Patient Education Patient Instructions Indication:Non-smoker Start:22-Apr-2017 Instruction Type:Provider Instructions for Treatment How to access health informa tion online Indication:BMI less than 19,adult Start:14-Nov-2016 Instruction Type:Patient Education How to access health informa tion online - Detail Indication:BMI less than 19,adult Start:14-Nov-2016 Instruction Type:Patient Education Patient Instructions Indication:BMI less than 19,adult Start:14-Nov-2016 Instruction Type:Provider Instructions for Treatment Patient Instructions Indication:Benign essential hypertension Start:08-Sep-2016 Instruction Type:Provider Instructions for Treatment How to access health informa tion online Indication:Non-smoker Start:28-Aug-2016 Instruction Type:Patient Education How to access health informa tion online - Detail Indication:Non-smoker Start:28-Aug-2016 Instruction Type:Patient Education Patient Instructions Indication:Non-smoker Start:28-Aug-2016 Instruction Type:Provider Instructions for Treatment How to access health informa tion online Indication:BMI between 19-24,adult Start:24-Apr-2016 Instruction Type:Patient Education How to access health informa tion online - Detail Indication:BMI between 19-24,adult Start:24-Apr-2016 Instruction Type:Patient Education Patient Instructions Indication:BMI between 19-24,adult Start:24-Apr-2016 Instruction Type:Provider Instructions for Treatment Patient Instructions 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.) Start:02-Jul-2015 Instruction Type:Provider Instructions for Treatment How to access health informa tion online Indication:Anxiety Start:02-Jul-2015 Instruction Type:Patient Education How to access health informa tion online - Detail Indication:Anxiety Start:02-Jul-2015 Instruction Type:Patient Education Patient Instructions Indication:Anxiety Start:27-Nov-2011 Instruction Type:Provider Instructions for Treatment Name Dates Details How to access health informa tion online Indication:BMI between 19-24,adult Start:12-Aug-2018 Instruction Type:Patient Education How to access health informa tion online - Detail Indication:BMI between 19-24,adult Start:12-Aug-2018 Instruction Type:Patient Education Patient Instructions Indication:Abdominal pain Start:12-Aug-2018 Instruction Type:Provider Instructions for Treatment How to access health informa tion online Indication:Non-smoker Start:28-May-2018 Instruction Type:Patient Education How to access health informa tion online - Detail Indication:Non-smoker Start:28-May-2018 Instruction Type:Patient Education Patient Instructions Indication:Non-smoker Start:28-May-2018 Instruction Type:Provider Instructions for Treatment How to access health informa tion online Indication:Non-smoker Start:14-Jul-2017 Instruction Type:Patient Education How to access health informa tion online - Detail Indication:Non-smoker Start:14-Jul-2017 Instruction Type:Patient Education Patient Instructions Indication:Non-smoker Start:14-Jul-2017 Instruction Type:Provider Instructions for Treatment How to access health informa tion online Indication:Non-smoker Start:08-May-2017 Instruction Type:Patient Education How to access health informa tion online - Detail Indication:Non-smoker Start:08-May-2017 Instruction Type:Patient Education Patient Instructions Indication:Non-smoker Start:08-May-2017 Instruction Type:Provider Instructions for Treatment How to access health informa tion online Indication:Non-smoker Start:22-Apr-2017 Instruction Type:Patient Education How to access health informa tion online - Detail Indication:Non-smoker Start:22-Apr-2017 Instruction Type:Patient Education Patient Instructions Indication:Non-smoker Start:22-Apr-2017 Instruction Type:Provider Instructions for Treatment How to access health informa tion online Indication:BMI less than 19,adult Start:14-Nov-2016 Instruction Type:Patient Education How to access health informa tion online - Detail Indication:BMI less than 19,adult Start:14-Nov-2016 Instruction Type:Patient Education Patient Instructions Indication:BMI less than 19,adult Start:14-Nov-2016 Instruction Type:Provider Instructions for Treatment Patient Instructions Indication:Benign essential hypertension Start:08-Sep-2016 Instruction Type:Provider Instructions for Treatment How to access health informa tion online Indication:Non-smoker Start:28-Aug-2016 Instruction Type:Patient Education How to access health informa tion online - Detail Indication:Non-smoker Start:28-Aug-2016 Instruction Type:Patient Education Patient Instructions Indication:Non-smoker Start:28-Aug-2016 Instruction Type:Provider Instructions for Treatment How to access health informa tion online Indication:BMI between 19-24,adult Start:24-Apr-2016 Instruction Type:Patient Education How to access health informa tion online - Detail Indication:BMI between 19-24,adult Start:24-Apr-2016 Instruction Type:Patient Education Patient Instructions Indication:BMI between 19-24,adult Start:24-Apr-2016 Instruction Type:Provider Instructions for Treatment Patient Instructions 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.) Start:02-Jul-2015 Instruction Type:Provider Instructions for Treatment How to access health informa tion online Indication:Anxiety Start:02-Jul-2015 Instruction Type:Patient Education How to access health informa tion online - Detail Indication:Anxiety Start:02-Jul-2015 Instruction Type:Patient Education Patient Instructions Indication:Anxiety Start:27-Nov-2011 Instruction Type:Provider Instructions for Treatment Name Dates Details How to access health informa tion online Indication:BMI between 19-24,adult Start:12-Aug-2018 Instruction Type:Patient Education How to access health informa tion online - Detail Indication:BMI between 19-24,adult Start:12-Aug-2018 Instruction Type:Patient Education Patient Instructions Indication:Abdominal pain Start:12-Aug-2018 Instruction Type:Provider Instructions for Treatment How to access health informa tion online Indication:Non-smoker Start:28-May-2018 Instruction Type:Patient Education How to access health informa tion online - Detail Indication:Non-smoker Start:28-May-2018 Instruction Type:Patient Education Patient Instructions Indication:Non-smoker Start:28-May-2018 Instruction Type:Provider Instructions for Treatment How to access health informa tion online Indication:Non-smoker Start:14-Jul-2017 Instruction Type:Patient Education How to access health informa tion online - Detail Indication:Non-smoker Start:14-Jul-2017 Instruction Type:Patient Education Patient Instructions Indication:Non-smoker Start:14-Jul-2017 Instruction Type:Provider Instructions for Treatment How to access health informa tion online Indication:Non-smoker Start:08-May-2017 Instruction Type:Patient Education How to access health informa tion online - Detail Indication:Non-smoker Start:08-May-2017 Instruction Type:Patient Education Patient Instructions Indication:Non-smoker Start:08-May-2017 Instruction Type:Provider Instructions for Treatment How to access health informa tion online Indication:Non-smoker Start:22-Apr-2017 Instruction Type:Patient Education How to access health informa tion online - Detail Indication:Non-smoker Start:22-Apr-2017 Instruction Type:Patient Education Patient Instructions Indication:Non-smoker Start:22-Apr-2017 Instruction Type:Provider Instructions for Treatment How to access health informa tion online Indication:BMI less than 19,adult Start:14-Nov-2016 Instruction Type:Patient Education How to access health informa tion online - Detail Indication:BMI less than 19,adult Start:14-Nov-2016 Instruction Type:Patient Education Patient Instructions Indication:BMI less than 19,adult Start:14-Nov-2016 Instruction Type:Provider Instructions for Treatment Patient Instructions Indication:Benign essential hypertension Start:08-Sep-2016 Instruction Type:Provider Instructions for Treatment How to access health informa tion online Indication:Non-smoker Start:28-Aug-2016 Instruction Type:Patient Education How to access health informa tion online - Detail Indication:Non-smoker Start:28-Aug-2016 Instruction Type:Patient Education Patient Instructions Indication:Non-smoker Start:28-Aug-2016 Instruction Type:Provider Instructions for Treatment How to access health informa tion online Indication:BMI between 19-24,adult Start:24-Apr-2016 Instruction Type:Patient Education How to access health informa tion online - Detail Indication:BMI between 19-24,adult Start:24-Apr-2016 Instruction Type:Patient Education Patient Instructions Indication:BMI between 19-24,adult Start:24-Apr-2016 Instruction Type:Provider Instructions for Treatment Patient Instructions 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.) Start:02-Jul-2015 Instruction Type:Provider Instructions for Treatment How to access health informa tion online Indication:Anxiety Start:02-Jul-2015 Instruction Type:Patient Education How to access health informa tion online - Detail Indication:Anxiety Start:02-Jul-2015 Instruction Type:Patient Education Patient Instructions Indication:Anxiety Start:27-Nov-2011 Instruction Type:Provider Instructions for Treatment Name Dates Details How to access health informa tion online Indication:Non-smoker Start:09-Sep-2018 Instruction Type:Patient Education How to access health informa tion online - Detail Indication:Non-smoker Start:09-Sep-2018 Instruction Type:Patient Education Patient Instructions Indication:Elevated blood pressure reading Start:09-Sep-2018 Instruction Type:Provider Instructions for Treatment How to access health informa tion online Indication:BMI between 19-24,adult Start:12-Aug-2018 Instruction Type:Patient Education How to access health informa tion online - Detail Indication:BMI between 19-24,adult Start:12-Aug-2018 Instruction Type:Patient Education Patient Instructions Indication:Abdominal pain Start:12-Aug-2018 Instruction Type:Provider Instructions for Treatment How to access health informa tion online Indication:Non-smoker Start:28-May-2018 Instruction Type:Patient Education How to access health informa tion online - Detail Indication:Non-smoker Start:28-May-2018 Instruction Type:Patient Education Patient Instructions Indication:Non-smoker Start:28-May-2018 Instruction Type:Provider Instructions for Treatment How to access health informa tion online Indication:Non-smoker Start:14-Jul-2017 Instruction Type:Patient Education How to access health informa tion online - Detail Indication:Non-smoker Start:14-Jul-2017 Instruction Type:Patient Education Patient Instructions Indication:Non-smoker Start:14-Jul-2017 Instruction Type:Provider Instructions for Treatment How to access health informa tion online Indication:Non-smoker Start:08-May-2017 Instruction Type:Patient Education How to access health informa tion online - Detail Indication:Non-smoker Start:08-May-2017 Instruction Type:Patient Education Patient Instructions Indication:Non-smoker Start:08-May-2017 Instruction Type:Provider Instructions for Treatment How to access health informa tion online Indication:Non-smoker Start:22-Apr-2017 Instruction Type:Patient Education How to access health informa tion online - Detail Indication:Non-smoker Start:22-Apr-2017 Instruction Type:Patient Education Patient Instructions Indication:Non-smoker Start:22-Apr-2017 Instruction Type:Provider Instructions for Treatment How to access health informa tion online Indication:BMI less than 19,adult Start:14-Nov-2016 Instruction Type:Patient Education How to access health informa tion online - Detail Indication:BMI less than 19,adult Start:14-Nov-2016 Instruction Type:Patient Education Patient Instructions Indication:BMI less than 19,adult Start:14-Nov-2016 Instruction Type:Provider Instructions for Treatment Patient Instructions Indication:Benign essential hypertension Start:08-Sep-2016 Instruction Type:Provider Instructions for Treatment How to access health informa tion online Indication:Non-smoker Start:28-Aug-2016 Instruction Type:Patient Education How to access health informa tion online - Detail Indication:Non-smoker Start:28-Aug-2016 Instruction Type:Patient Education Patient Instructions Indication:Non-smoker Start:28-Aug-2016 Instruction Type:Provider Instructions for Treatment How to access health informa tion online Indication:BMI between 19-24,adult Start:24-Apr-2016 Instruction Type:Patient Education How to access health informa tion online - Detail Indication:BMI between 19-24,adult Start:24-Apr-2016 Instruction Type:Patient Education Patient Instructions Indication:BMI between 19-24,adult Start:24-Apr-2016 Instruction Type:Provider Instructions for Treatment Patient Instructions 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.) Start:02-Jul-2015 Instruction Type:Provider Instructions for Treatment How to access health informa tion online Indication:Anxiety Start:02-Jul-2015 Instruction Type:Patient Education How to access health informa tion online - Detail Indication:Anxiety Start:02-Jul-2015 Instruction Type:Patient Education Patient Instructions Indication:Anxiety Start:27-Nov-2011 Instruction Type:Provider Instructions for Treatment Name Dates Details How to access health informa tion online Indication:Non-smoker Start:01-Oct-2018 Instruction Type:Patient Education How to access health informa tion online - Detail Indication:Non-smoker Start:01-Oct-2018 Instruction Type:Patient Education Patient Instructions Indication:Non-smoker Start:01-Oct-2018 Instruction Type:Provider Instructions for Treatment How to access health informa tion online Indication:Non-smoker Start:09-Sep-2018 Instruction Type:Patient Education How to access health informa tion online - Detail Indication:Non-smoker Start:09-Sep-2018 Instruction Type:Patient Education Patient Instructions Indication:Elevated blood pressure reading Start:09-Sep-2018 Instruction Type:Provider Instructions for Treatment How to access health informa tion online Indication:BMI between 19-24,adult Start:12-Aug-2018 Instruction Type:Patient Education How to access health informa tion online - Detail Indication:BMI between 19-24,adult Start:12-Aug-2018 Instruction Type:Patient Education Patient Instructions Indication:Abdominal pain Start:12-Aug-2018 Instruction Type:Provider Instructions for Treatment How to access health informa tion online Indication:Non-smoker Start:28-May-2018 Instruction Type:Patient Education How to access health informa tion online - Detail Indication:Non-smoker Start:28-May-2018 Instruction Type:Patient Education Patient Instructions Indication:Non-smoker Start:28-May-2018 Instruction Type:Provider Instructions for Treatment How to access health informa tion online Indication:Non-smoker Start:14-Jul-2017 Instruction Type:Patient Education How to access health informa tion online - Detail Indication:Non-smoker Start:14-Jul-2017 Instruction Type:Patient Education Patient Instructions Indication:Non-smoker Start:14-Jul-2017 Instruction Type:Provider Instructions for Treatment How to access health informa tion online Indication:Non-smoker Start:08-May-2017 Instruction Type:Patient Education How to access health informa tion online - Detail Indication:Non-smoker Start:08-May-2017 Instruction Type:Patient Education Patient Instructions Indication:Non-smoker Start:08-May-2017 Instruction Type:Provider Instructions for Treatment How to access health informa tion online Indication:Non-smoker Start:22-Apr-2017 Instruction Type:Patient Education How to access health informa tion online - Detail Indication:Non-smoker Start:22-Apr-2017 Instruction Type:Patient Education Patient Instructions Indication:Non-smoker Start:22-Apr-2017 Instruction Type:Provider Instructions for Treatment How to access health informa tion online Indication:BMI less than 19,adult Start:14-Nov-2016 Instruction Type:Patient Education How to access health informa tion online - Detail Indication:BMI less than 19,adult Start:14-Nov-2016 Instruction Type:Patient Education Patient Instructions Indication:BMI less than 19,adult Start:14-Nov-2016 Instruction Type:Provider Instructions for Treatment Patient Instructions Indication:Benign essential hypertension Start:08-Sep-2016 Instruction Type:Provider Instructions for Treatment How to access health informa tion online Indication:Non-smoker Start:28-Aug-2016 Instruction Type:Patient Education How to access health informa tion online - Detail Indication:Non-smoker Start:28-Aug-2016 Instruction Type:Patient Education Patient Instructions Indication:Non-smoker Start:28-Aug-2016 Instruction Type:Provider Instructions for Treatment How to access health informa tion online Indication:BMI between 19-24,adult Start:24-Apr-2016 Instruction Type:Patient Education How to access health informa tion online - Detail Indication:BMI between 19-24,adult Start:24-Apr-2016 Instruction Type:Patient Education Patient Instructions Indication:BMI between 19-24,adult Start:24-Apr-2016 Instruction Type:Provider Instructions for Treatment Patient Instructions 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.) Start:02-Jul-2015 Instruction Type:Provider Instructions for Treatment How to access health informa tion online Indication:Anxiety Start:02-Jul-2015 Instruction Type:Patient Education How to access health informa tion online - Detail Indication:Anxiety Start:02-Jul-2015 Instruction Type:Patient Education Patient Instructions Indication:Anxiety Start:27-Nov-2011 Instruction Type:Provider Instructions for Treatment Name Dates Details How to access health informa tion online Indication:Non-smoker Start:15-Nov-2018 Instruction Type:Patient Education How to access health informa tion online - Detail Indication:Non-smoker Start:15-Nov-2018 Instruction Type:Patient Education Patient Instructions Indication:Skin rash Start:15-Nov-2018 Instruction Type:Provider Instructions for Treatment How to access health informa tion online Indication:Non-smoker Start:01-Oct-2018 Instruction Type:Patient Education How to access health informa tion online - Detail Indication:Non-smoker Start:01-Oct-2018 Instruction Type:Patient Education Patient Instructions Indication:Non-smoker Start:01-Oct-2018 Instruction Type:Provider Instructions for Treatment How to access health informa tion online Indication:Non-smoker Start:09-Sep-2018 Instruction Type:Patient Education How to access health informa tion online - Detail Indication:Non-smoker Start:09-Sep-2018 Instruction Type:Patient Education Patient Instructions Indication:Elevated blood pressure reading Start:09-Sep-2018 Instruction Type:Provider Instructions for Treatment How to access health informa tion online Indication:BMI between 19-24,adult Start:12-Aug-2018 Instruction Type:Patient Education How to access health informa tion online - Detail Indication:BMI between 19-24,adult Start:12-Aug-2018 Instruction Type:Patient Education Patient Instructions Indication:Abdominal pain Start:12-Aug-2018 Instruction Type:Provider Instructions for Treatment How to access health informa tion online Indication:Non-smoker Start:28-May-2018 Instruction Type:Patient Education How to access health informa tion online - Detail Indication:Non-smoker Start:28-May-2018 Instruction Type:Patient Education Patient Instructions Indication:Non-smoker Start:28-May-2018 Instruction Type:Provider Instructions for Treatment How to access health informa tion online Indication:Non-smoker Start:14-Jul-2017 Instruction Type:Patient Education How to access health informa tion online - Detail Indication:Non-smoker Start:14-Jul-2017 Instruction Type:Patient Education Patient Instructions Indication:Non-smoker Start:14-Jul-2017 Instruction Type:Provider Instructions for Treatment How to access health informa tion online Indication:Non-smoker Start:08-May-2017 Instruction Type:Patient Education How to access health informa tion online - Detail Indication:Non-smoker Start:08-May-2017 Instruction Type:Patient Education Patient Instructions Indication:Non-smoker Start:08-May-2017 Instruction Type:Provider Instructions for Treatment How to access health informa tion online Indication:Non-smoker Start:22-Apr-2017 Instruction Type:Patient Education How to access health informa tion online - Detail Indication:Non-smoker Start:22-Apr-2017 Instruction Type:Patient Education Patient Instructions Indication:Non-smoker Start:22-Apr-2017 Instruction Type:Provider Instructions for Treatment How to access health informa tion online Indication:BMI less than 19,adult Start:14-Nov-2016 Instruction Type:Patient Education How to access health informa tion online - Detail Indication:BMI less than 19,adult Start:14-Nov-2016 Instruction Type:Patient Education Patient Instructions Indication:BMI less than 19,adult Start:14-Nov-2016 Instruction Type:Provider Instructions for Treatment Patient Instructions Indication:Benign essential hypertension Start:08-Sep-2016 Instruction Type:Provider Instructions for Treatment How to access health informa tion online Indication:Non-smoker Start:28-Aug-2016 Instruction Type:Patient Education How to access health informa tion online - Detail Indication:Non-smoker Start:28-Aug-2016 Instruction Type:Patient Education Patient Instructions Indication:Non-smoker Start:28-Aug-2016 Instruction Type:Provider Instructions for Treatment How to access health informa tion online Indication:BMI between 19-24,adult Start:24-Apr-2016 Instruction Type:Patient Education How to access health informa tion online - Detail Indication:BMI between 19-24,adult Start:24-Apr-2016 Instruction Type:Patient Education Patient Instructions Indication:BMI between 19-24,adult Start:24-Apr-2016 Instruction Type:Provider Instructions for Treatment Patient Instructions 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.) Start:02-Jul-2015 Instruction Type:Provider Instructions for Treatment How to access health informa tion online Indication:Anxiety Start:02-Jul-2015 Instruction Type:Patient Education How to access health informa tion online - Detail Indication:Anxiety Start:02-Jul-2015 Instruction Type:Patient Education Patient Instructions Indication:Anxiety Start:27-Nov-2011 Instruction Type:Provider Instructions for Treatment Name Dates Details How to access health informa tion online Indication:BMI less than 19,adult Start:17-Aug-2019 Instruction Type:Patient Education How to access health informa tion online - Detail Indication:BMI less than 19,adult Start:17-Aug-2019 Instruction Type:Patient Education Patient Instructions Indication:BMI less than 19,adult Start:17-Aug-2019 Instruction Type:Provider Instructions for Treatment How to access health informa tion online Indication:Non-smoker Start:15-Nov-2018 Instruction Type:Patient Education How to access health informa tion online - Detail Indication:Non-smoker Start:15-Nov-2018 Instruction Type:Patient Education Patient Instructions Indication:Skin rash Start:15-Nov-2018 Instruction Type:Provider Instructions for Treatment How to access health informa tion online Indication:Non-smoker Start:01-Oct-2018 Instruction Type:Patient Education How to access health informa tion online - Detail Indication:Non-smoker Start:01-Oct-2018 Instruction Type:Patient Education Patient Instructions Indication:Non-smoker Start:01-Oct-2018 Instruction Type:Provider Instructions for Treatment How to access health informa tion online Indication:Non-smoker Start:09-Sep-2018 Instruction Type:Patient Education How to access health informa tion online - Detail Indication:Non-smoker Start:09-Sep-2018 Instruction Type:Patient Education Patient Instructions Indication:Elevated blood pressure reading Start:09-Sep-2018 Instruction Type:Provider Instructions for Treatment How to access health informa tion online Indication:BMI between 19-24,adult Start:12-Aug-2018 Instruction Type:Patient Education How to access health informa tion online - Detail Indication:BMI between 19-24,adult Start:12-Aug-2018 Instruction Type:Patient Education Patient Instructions Indication:Abdominal pain Start:12-Aug-2018 Instruction Type:Provider Instructions for Treatment How to access health informa tion online Indication:Non-smoker Start:28-May-2018 Instruction Type:Patient Education How to access health informa tion online - Detail Indication:Non-smoker Start:28-May-2018 Instruction Type:Patient Education Patient Instructions Indication:Non-smoker Start:28-May-2018 Instruction Type:Provider Instructions for Treatment How to access health informa tion online Indication:Non-smoker Start:14-Jul-2017 Instruction Type:Patient Education How to access health informa tion online - Detail Indication:Non-smoker Start:14-Jul-2017 Instruction Type:Patient Education Patient Instructions Indication:Non-smoker Start:14-Jul-2017 Instruction Type:Provider Instructions for Treatment How to access health informa tion online Indication:Non-smoker Start:08-May-2017 Instruction Type:Patient Education How to access health informa tion online - Detail Indication:Non-smoker Start:08-May-2017 Instruction Type:Patient Education Patient Instructions Indication:Non-smoker Start:08-May-2017 Instruction Type:Provider Instructions for Treatment How to access health informa tion online Indication:Non-smoker Start:22-Apr-2017 Instruction Type:Patient Education How to access health informa tion online - Detail Indication:Non-smoker Start:22-Apr-2017 Instruction Type:Patient Education Patient Instructions Indication:Non-smoker Start:22-Apr-2017 Instruction Type:Provider Instructions for Treatment How to access health informa tion online Indication:BMI less than 19,adult Start:14-Nov-2016 Instruction Type:Patient Education How to access health informa tion online - Detail Indication:BMI less than 19,adult Start:14-Nov-2016 Instruction Type:Patient Education Patient Instructions Indication:BMI less than 19,adult Start:14-Nov-2016 Instruction Type:Provider Instructions for Treatment Patient Instructions Indication:Benign essential hypertension Start:08-Sep-2016 Instruction Type:Provider Instructions for Treatment How to access health informa tion online Indication:Non-smoker Start:28-Aug-2016 Instruction Type:Patient Education How to access health informa tion online - Detail Indication:Non-smoker Start:28-Aug-2016 Instruction Type:Patient Education Patient Instructions Indication:Non-smoker Start:28-Aug-2016 Instruction Type:Provider Instructions for Treatment How to access health informa tion online Indication:BMI between 19-24,adult Start:24-Apr-2016 Instruction Type:Patient Education How to access health informa tion online - Detail Indication:BMI between 19-24,adult Start:24-Apr-2016 Instruction Type:Patient Education Patient Instructions Indication:BMI between 19-24,adult Start:24-Apr-2016 Instruction Type:Provider Instructions for Treatment Patient Instructions 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.) Start:02-Jul-2015 Instruction Type:Provider Instructions for Treatment How to access health informa tion online Indication:Anxiety Start:02-Jul-2015 Instruction Type:Patient Education How to access health informa tion online - Detail Indication:Anxiety Start:02-Jul-2015 Instruction Type:Patient Education Patient Instructions Indication:Anxiety Start:27-Nov-2011 Instruction Type:Provider Instructions for Treatment Name Dates Details How to access health informa tion online Indication:BMI less than 19,adult Start:17-Aug-2019 Instruction Type:Patient Education How to access health informa tion online - Detail Indication:BMI less than 19,adult Start:17-Aug-2019 Instruction Type:Patient Education Patient Instructions Indication:BMI less than 19,adult Start:17-Aug-2019 Instruction Type:Provider Instructions for Treatment How to access health informa tion online Indication:Non-smoker Start:15-Nov-2018 Instruction Type:Patient Education How to access health informa tion online - Detail Indication:Non-smoker Start:15-Nov-2018 Instruction Type:Patient Education Patient Instructions Indication:Skin rash Start:15-Nov-2018 Instruction Type:Provider Instructions for Treatment How to access health informa tion online Indication:Non-smoker Start:01-Oct-2018 Instruction Type:Patient Education How to access health informa tion online - Detail Indication:Non-smoker Start:01-Oct-2018 Instruction Type:Patient Education Patient Instructions Indication:Non-smoker Start:01-Oct-2018 Instruction Type:Provider Instructions for Treatment How to access health informa tion online Indication:Non-smoker Start:09-Sep-2018 Instruction Type:Patient Education How to access health informa tion online - Detail Indication:Non-smoker Start:09-Sep-2018 Instruction Type:Patient Education Patient Instructions Indication:Elevated blood pressure reading Start:09-Sep-2018 Instruction Type:Provider Instructions for Treatment How to access health informa tion online Indication:BMI between 19-24,adult Start:12-Aug-2018 Instruction Type:Patient Education How to access health informa tion online - Detail Indication:BMI between 19-24,adult Start:12-Aug-2018 Instruction Type:Patient Education Patient Instructions Indication:Abdominal pain Start:12-Aug-2018 Instruction Type:Provider Instructions for Treatment How to access health informa tion online Indication:Non-smoker Start:28-May-2018 Instruction Type:Patient Education How to access health informa tion online - Detail Indication:Non-smoker Start:28-May-2018 Instruction Type:Patient Education Patient Instructions Indication:Non-smoker Start:28-May-2018 Instruction Type:Provider Instructions for Treatment How to access health informa tion online Indication:Non-smoker Start:14-Jul-2017 Instruction Type:Patient Education How to access health informa tion online - Detail Indication:Non-smoker Start:14-Jul-2017 Instruction Type:Patient Education Patient Instructions Indication:Non-smoker Start:14-Jul-2017 Instruction Type:Provider Instructions for Treatment How to access health informa tion online Indication:Non-smoker Start:08-May-2017 Instruction Type:Patient Education How to access health informa tion online - Detail Indication:Non-smoker Start:08-May-2017 Instruction Type:Patient Education Patient Instructions Indication:Non-smoker Start:08-May-2017 Instruction Type:Provider Instructions for Treatment How to access health informa tion online Indication:Non-smoker Start:22-Apr-2017 Instruction Type:Patient Education How to access health informa tion online - Detail Indication:Non-smoker Start:22-Apr-2017 Instruction Type:Patient Education Patient Instructions Indication:Non-smoker Start:22-Apr-2017 Instruction Type:Provider Instructions for Treatment How to access health informa tion online Indication:BMI less than 19,adult Start:14-Nov-2016 Instruction Type:Patient Education How to access health informa tion online - Detail Indication:BMI less than 19,adult Start:14-Nov-2016 Instruction Type:Patient Education Patient Instructions Indication:BMI less than 19,adult Start:14-Nov-2016 Instruction Type:Provider Instructions for Treatment Patient Instructions Indication:Benign essential hypertension Start:08-Sep-2016 Instruction Type:Provider Instructions for Treatment How to access health informa tion online Indication:Non-smoker Start:28-Aug-2016 Instruction Type:Patient Education How to access health informa tion online - Detail Indication:Non-smoker Start:28-Aug-2016 Instruction Type:Patient Education Patient Instructions Indication:Non-smoker Start:28-Aug-2016 Instruction Type:Provider Instructions for Treatment How to access health informa tion online Indication:BMI between 19-24,adult Start:24-Apr-2016 Instruction Type:Patient Education How to access health informa tion online - Detail Indication:BMI between 19-24,adult Start:24-Apr-2016 Instruction Type:Patient Education Patient Instructions Indication:BMI between 19-24,adult Start:24-Apr-2016 Instruction Type:Provider Instructions for Treatment Patient Instructions 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.) Start:02-Jul-2015 Instruction Type:Provider Instructions for Treatment How to access health informa tion online Indication:Anxiety Start:02-Jul-2015 Instruction Type:Patient Education How to access health informa tion online - Detail Indication:Anxiety Start:02-Jul-2015 Instruction Type:Patient Education Patient Instructions Indication:Anxiety Start:27-Nov-2011 Instruction Type:Provider Instructions for Treatment Name Dates Details How to access health informa tion online Indication:Non-smoker Start:03-Oct-2019 Instruction Type:Patient Education How to access health informa tion online - Detail Indication:Non-smoker Start:03-Oct-2019 Instruction Type:Patient Education Patient Instructions Indication:Non-smoker Start:03-Oct-2019 Instruction Type:Provider Instructions for Treatment How to access health informa tion online Indication:BMI less than 19,adult Start:17-Aug-2019 Instruction Type:Patient Education How to access health informa tion online - Detail Indication:BMI less than 19,adult Start:17-Aug-2019 Instruction Type:Patient Education Patient Instructions Indication:BMI less than 19,adult Start:17-Aug-2019 Instruction Type:Provider Instructions for Treatment How to access health informa tion online Indication:Non-smoker Start:15-Nov-2018 Instruction Type:Patient Education How to access health informa tion online - Detail Indication:Non-smoker Start:15-Nov-2018 Instruction Type:Patient Education Patient Instructions Indication:Skin rash Start:15-Nov-2018 Instruction Type:Provider Instructions for Treatment How to access health informa tion online Indication:Non-smoker Start:01-Oct-2018 Instruction Type:Patient Education How to access health informa tion online - Detail Indication:Non-smoker Start:01-Oct-2018 Instruction Type:Patient Education Patient Instructions Indication:Non-smoker Start:01-Oct-2018 Instruction Type:Provider Instructions for Treatment How to access health informa tion online Indication:Non-smoker Start:09-Sep-2018 Instruction Type:Patient Education How to access health informa tion online - Detail Indication:Non-smoker Start:09-Sep-2018 Instruction Type:Patient Education Patient Instructions Indication:Elevated blood pressure reading Start:09-Sep-2018 Instruction Type:Provider Instructions for Treatment How to access health informa tion online Indication:BMI between 19-24,adult Start:12-Aug-2018 Instruction Type:Patient Education How to access health informa tion online - Detail Indication:BMI between 19-24,adult Start:12-Aug-2018 Instruction Type:Patient Education Patient Instructions Indication:Abdominal pain Start:12-Aug-2018 Instruction Type:Provider Instructions for Treatment How to access health informa tion online Indication:Non-smoker Start:28-May-2018 Instruction Type:Patient Education How to access health informa tion online - Detail Indication:Non-smoker Start:28-May-2018 Instruction Type:Patient Education Patient Instructions Indication:Non-smoker Start:28-May-2018 Instruction Type:Provider Instructions for Treatment How to access health informa tion online Indication:Non-smoker Start:14-Jul-2017 Instruction Type:Patient Education How to access health informa tion online - Detail Indication:Non-smoker Start:14-Jul-2017 Instruction Type:Patient Education Patient Instructions Indication:Non-smoker Start:14-Jul-2017 Instruction Type:Provider Instructions for Treatment How to access health informa tion online Indication:Non-smoker Start:08-May-2017 Instruction Type:Patient Education How to access health informa tion online - Detail Indication:Non-smoker Start:08-May-2017 Instruction Type:Patient Education Patient Instructions Indication:Non-smoker Start:08-May-2017 Instruction Type:Provider Instructions for Treatment How to access health informa tion online Indication:Non-smoker Start:22-Apr-2017 Instruction Type:Patient Education How to access health informa tion online - Detail Indication:Non-smoker Start:22-Apr-2017 Instruction Type:Patient Education Patient Instructions Indication:Non-smoker Start:22-Apr-2017 Instruction Type:Provider Instructions for Treatment How to access health informa tion online Indication:BMI less than 19,adult Start:14-Nov-2016 Instruction Type:Patient Education How to access health informa tion online - Detail Indication:BMI less than 19,adult Start:14-Nov-2016 Instruction Type:Patient Education Patient Instructions Indication:BMI less than 19,adult Start:14-Nov-2016 Instruction Type:Provider Instructions for Treatment Patient Instructions Indication:Benign essential hypertension Start:08-Sep-2016 Instruction Type:Provider Instructions for Treatment How to access health informa tion online Indication:Non-smoker Start:28-Aug-2016 Instruction Type:Patient Education How to access health informa tion online - Detail Indication:Non-smoker Start:28-Aug-2016 Instruction Type:Patient Education Patient Instructions Indication:Non-smoker Start:28-Aug-2016 Instruction Type:Provider Instructions for Treatment How to access health informa tion online Indication:BMI between 19-24,adult Start:24-Apr-2016 Instruction Type:Patient Education How to access health informa tion online - Detail Indication:BMI between 19-24,adult Start:24-Apr-2016 Instruction Type:Patient Education Patient Instructions Indication:BMI between 19-24,adult Start:24-Apr-2016 Instruction Type:Provider Instructions for Treatment Patient Instructions 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.) Start:02-Jul-2015 Instruction Type:Provider Instructions for Treatment How to access health informa tion online Indication:Anxiety Start:02-Jul-2015 Instruction Type:Patient Education How to access health informa tion online - Detail Indication:Anxiety Start:02-Jul-2015 Instruction Type:Patient Education Patient Instructions Indication:Anxiety Start:27-Nov-2011 Instruction Type:Provider Instructions for Treatment Name Dates Details How to access health informa tion online Indication:Non-smoker Start:03-Oct-2019 Instruction Type:Patient Education How to access health informa tion online - Detail Indication:Non-smoker Start:03-Oct-2019 Instruction Type:Patient Education Patient Instructions Indication:Non-smoker Start:03-Oct-2019 Instruction Type:Provider Instructions for Treatment How to access health informa tion online Indication:BMI less than 19,adult Start:17-Aug-2019 Instruction Type:Patient Education How to access health informa tion online - Detail Indication:BMI less than 19,adult Start:17-Aug-2019 Instruction Type:Patient Education Patient Instructions Indication:BMI less than 19,adult Start:17-Aug-2019 Instruction Type:Provider Instructions for Treatment How to access health informa tion online Indication:Non-smoker Start:15-Nov-2018 Instruction Type:Patient Education How to access health informa tion online - Detail Indication:Non-smoker Start:15-Nov-2018 Instruction Type:Patient Education Patient Instructions Indication:Skin rash Start:15-Nov-2018 Instruction Type:Provider Instructions for Treatment How to access health informa tion online Indication:Non-smoker Start:01-Oct-2018 Instruction Type:Patient Education How to access health informa tion online - Detail Indication:Non-smoker Start:01-Oct-2018 Instruction Type:Patient Education Patient Instructions Indication:Non-smoker Start:01-Oct-2018 Instruction Type:Provider Instructions for Treatment How to access health informa tion online Indication:Non-smoker Start:09-Sep-2018 Instruction Type:Patient Education How to access health informa tion online - Detail Indication:Non-smoker Start:09-Sep-2018 Instruction Type:Patient Education Patient Instructions Indication:Elevated blood pressure reading Start:09-Sep-2018 Instruction Type:Provider Instructions for Treatment How to access health informa tion online Indication:BMI between 19-24,adult Start:12-Aug-2018 Instruction Type:Patient Education How to access health informa tion online - Detail Indication:BMI between 19-24,adult Start:12-Aug-2018 Instruction Type:Patient Education Patient Instructions Indication:Abdominal pain Start:12-Aug-2018 Instruction Type:Provider Instructions for Treatment How to access health informa tion online Indication:Non-smoker Start:28-May-2018 Instruction Type:Patient Education How to access health informa tion online - Detail Indication:Non-smoker Start:28-May-2018 Instruction Type:Patient Education Patient Instructions Indication:Non-smoker Start:28-May-2018 Instruction Type:Provider Instructions for Treatment How to access health informa tion online Indication:Non-smoker Start:14-Jul-2017 Instruction Type:Patient Education How to access health informa tion online - Detail Indication:Non-smoker Start:14-Jul-2017 Instruction Type:Patient Education Patient Instructions Indication:Non-smoker Start:14-Jul-2017 Instruction Type:Provider Instructions for Treatment How to access health informa tion online Indication:Non-smoker Start:08-May-2017 Instruction Type:Patient Education How to access health informa tion online - Detail Indication:Non-smoker Start:08-May-2017 Instruction Type:Patient Education Patient Instructions Indication:Non-smoker Start:08-May-2017 Instruction Type:Provider Instructions for Treatment How to access health informa tion online Indication:Non-smoker Start:22-Apr-2017 Instruction Type:Patient Education How to access health informa tion online - Detail Indication:Non-smoker Start:22-Apr-2017 Instruction Type:Patient Education Patient Instructions Indication:Non-smoker Start:22-Apr-2017 Instruction Type:Provider Instructions for Treatment How to access health informa tion online Indication:BMI less than 19,adult Start:14-Nov-2016 Instruction Type:Patient Education How to access health informa tion online - Detail Indication:BMI less than 19,adult Start:14-Nov-2016 Instruction Type:Patient Education Patient Instructions Indication:BMI less than 19,adult Start:14-Nov-2016 Instruction Type:Provider Instructions for Treatment Patient Instructions Indication:Benign essential hypertension Start:08-Sep-2016 Instruction Type:Provider Instructions for Treatment How to access health informa tion online Indication:Non-smoker Start:28-Aug-2016 Instruction Type:Patient Education How to access health informa tion online - Detail Indication:Non-smoker Start:28-Aug-2016 Instruction Type:Patient Education Patient Instructions Indication:Non-smoker Start:28-Aug-2016 Instruction Type:Provider Instructions for Treatment How to access health informa tion online Indication:BMI between 19-24,adult Start:24-Apr-2016 Instruction Type:Patient Education How to access health informa tion online - Detail Indication:BMI between 19-24,adult Start:24-Apr-2016 Instruction Type:Patient Education Patient Instructions Indication:BMI between 19-24,adult Start:24-Apr-2016 Instruction Type:Provider Instructions for Treatment Patient Instructions 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.) Start:02-Jul-2015 Instruction Type:Provider Instructions for Treatment How to access health informa tion online Indication:Anxiety Start:02-Jul-2015 Instruction Type:Patient Education How to access health informa tion online - Detail Indication:Anxiety Start:02-Jul-2015 Instruction Type:Patient Education Patient Instructions Indication:Anxiety Start:27-Nov-2011 Instruction Type:Provider Instructions for Treatment Name Dates Details How to access health informa tion online Indication:Non-smoker Start:03-Oct-2019 Instruction Type:Patient Education How to access health informa tion online - Detail Indication:Non-smoker Start:03-Oct-2019 Instruction Type:Patient Education Patient Instructions Indication:Non-smoker Start:03-Oct-2019 Instruction Type:Provider Instructions for Treatment How to access health informa tion online Indication:BMI less than 19,adult Start:17-Aug-2019 Instruction Type:Patient Education How to access health informa tion online - Detail Indication:BMI less than 19,adult Start:17-Aug-2019 Instruction Type:Patient Education Patient Instructions Indication:BMI less than 19,adult Start:17-Aug-2019 Instruction Type:Provider Instructions for Treatment How to access health informa tion online Indication:Non-smoker Start:15-Nov-2018 Instruction Type:Patient Education How to access health informa tion online - Detail Indication:Non-smoker Start:15-Nov-2018 Instruction Type:Patient Education Patient Instructions Indication:Skin rash Start:15-Nov-2018 Instruction Type:Provider Instructions for Treatment How to access health informa tion online Indication:Non-smoker Start:01-Oct-2018 Instruction Type:Patient Education How to access health informa tion online - Detail Indication:Non-smoker Start:01-Oct-2018 Instruction Type:Patient Education Patient Instructions Indication:Non-smoker Start:01-Oct-2018 Instruction Type:Provider Instructions for Treatment How to access health informa tion online Indication:Non-smoker Start:09-Sep-2018 Instruction Type:Patient Education How to access health informa tion online - Detail Indication:Non-smoker Start:09-Sep-2018 Instruction Type:Patient Education Patient Instructions Indication:Elevated blood pressure reading Start:09-Sep-2018 Instruction Type:Provider Instructions for Treatment How to access health informa tion online Indication:BMI between 19-24,adult Start:12-Aug-2018 Instruction Type:Patient Education How to access health informa tion online - Detail Indication:BMI between 19-24,adult Start:12-Aug-2018 Instruction Type:Patient Education Patient Instructions Indication:Abdominal pain Start:12-Aug-2018 Instruction Type:Provider Instructions for Treatment How to access health informa tion online Indication:Non-smoker Start:28-May-2018 Instruction Type:Patient Education How to access health informa tion online - Detail Indication:Non-smoker Start:28-May-2018 Instruction Type:Patient Education Patient Instructions Indication:Non-smoker Start:28-May-2018 Instruction Type:Provider Instructions for Treatment How to access health informa tion online Indication:Non-smoker Start:14-Jul-2017 Instruction Type:Patient Education How to access health informa tion online - Detail Indication:Non-smoker Start:14-Jul-2017 Instruction Type:Patient Education Patient Instructions Indication:Non-smoker Start:14-Jul-2017 Instruction Type:Provider Instructions for Treatment How to access health informa tion online Indication:Non-smoker Start:08-May-2017 Instruction Type:Patient Education How to access health informa tion online - Detail Indication:Non-smoker Start:08-May-2017 Instruction Type:Patient Education Patient Instructions Indication:Non-smoker Start:08-May-2017 Instruction Type:Provider Instructions for Treatment How to access health informa tion online Indication:Non-smoker Start:22-Apr-2017 Instruction Type:Patient Education How to access health informa tion online - Detail Indication:Non-smoker Start:22-Apr-2017 Instruction Type:Patient Education Patient Instructions Indication:Non-smoker Start:22-Apr-2017 Instruction Type:Provider Instructions for Treatment How to access health informa tion online Indication:BMI less than 19,adult Start:14-Nov-2016 Instruction Type:Patient Education How to access health informa tion online - Detail Indication:BMI less than 19,adult Start:14-Nov-2016 Instruction Type:Patient Education Patient Instructions Indication:BMI less than 19,adult Start:14-Nov-2016 Instruction Type:Provider Instructions for Treatment Patient Instructions Indication:Benign essential hypertension Start:08-Sep-2016 Instruction Type:Provider Instructions for Treatment How to access health informa tion online Indication:Non-smoker Start:28-Aug-2016 Instruction Type:Patient Education How to access health informa tion online - Detail Indication:Non-smoker Start:28-Aug-2016 Instruction Type:Patient Education Patient Instructions Indication:Non-smoker Start:28-Aug-2016 Instruction Type:Provider Instructions for Treatment How to access health informa tion online Indication:BMI between 19-24,adult Start:24-Apr-2016 Instruction Type:Patient Education How to access health informa tion online - Detail Indication:BMI between 19-24,adult Start:24-Apr-2016 Instruction Type:Patient Education Patient Instructions Indication:BMI between 19-24,adult Start:24-Apr-2016 Instruction Type:Provider Instructions for Treatment Patient Instructions 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.) Start:02-Jul-2015 Instruction Type:Provider Instructions for Treatment How to access health informa tion online Indication:Anxiety Start:02-Jul-2015 Instruction Type:Patient Education How to access health informa tion online - Detail Indication:Anxiety Start:02-Jul-2015 Instruction Type:Patient Education Patient Instructions Indication:Anxiety Start:27-Nov-2011 Instruction Type:Provider Instructions for Treatment Name Dates Details How to access health informa tion online Indication:Non-smoker Start:13-Oct-2019 Instruction Type:Patient Education How to access health informa tion online - Detail Indication:Non-smoker Start:13-Oct-2019 Instruction Type:Patient Education Patient Instructions Indication:Non-smoker Start:13-Oct-2019 Instruction Type:Provider Instructions for Treatment How to access health informa tion online Indication:Non-smoker Start:03-Oct-2019 Instruction Type:Patient Education How to access health informa tion online - Detail Indication:Non-smoker Start:03-Oct-2019 Instruction Type:Patient Education Patient Instructions Indication:Non-smoker Start:03-Oct-2019 Instruction Type:Provider Instructions for Treatment How to access health informa tion online Indication:BMI less than 19,adult Start:17-Aug-2019 Instruction Type:Patient Education How to access health informa tion online - Detail Indication:BMI less than 19,adult Start:17-Aug-2019 Instruction Type:Patient Education Patient Instructions Indication:BMI less than 19,adult Start:17-Aug-2019 Instruction Type:Provider Instructions for Treatment How to access health informa tion online Indication:Non-smoker Start:15-Nov-2018 Instruction Type:Patient Education How to access health informa tion online - Detail Indication:Non-smoker Start:15-Nov-2018 Instruction Type:Patient Education Patient Instructions Indication:Skin rash Start:15-Nov-2018 Instruction Type:Provider Instructions for Treatment How to access health informa tion online Indication:Non-smoker Start:01-Oct-2018 Instruction Type:Patient Education How to access health informa tion online - Detail Indication:Non-smoker Start:01-Oct-2018 Instruction Type:Patient Education Patient Instructions Indication:Non-smoker Start:01-Oct-2018 Instruction Type:Provider Instructions for Treatment How to access health informa tion online Indication:Non-smoker Start:09-Sep-2018 Instruction Type:Patient Education How to access health informa tion online - Detail Indication:Non-smoker Start:09-Sep-2018 Instruction Type:Patient Education Patient Instructions Indication:Elevated blood pressure reading Start:09-Sep-2018 Instruction Type:Provider Instructions for Treatment How to access health informa tion online Indication:BMI between 19-24,adult Start:12-Aug-2018 Instruction Type:Patient Education How to access health informa tion online - Detail Indication:BMI between 19-24,adult Start:12-Aug-2018 Instruction Type:Patient Education Patient Instructions Indication:Abdominal pain Start:12-Aug-2018 Instruction Type:Provider Instructions for Treatment How to access health informa tion online Indication:Non-smoker Start:28-May-2018 Instruction Type:Patient Education How to access health informa tion online - Detail Indication:Non-smoker Start:28-May-2018 Instruction Type:Patient Education Patient Instructions Indication:Non-smoker Start:28-May-2018 Instruction Type:Provider Instructions for Treatment How to access health informa tion online Indication:Non-smoker Start:14-Jul-2017 Instruction Type:Patient Education How to access health informa tion online - Detail Indication:Non-smoker Start:14-Jul-2017 Instruction Type:Patient Education Patient Instructions Indication:Non-smoker Start:14-Jul-2017 Instruction Type:Provider Instructions for Treatment How to access health informa tion online Indication:Non-smoker Start:08-May-2017 Instruction Type:Patient Education How to access health informa tion online - Detail Indication:Non-smoker Start:08-May-2017 Instruction Type:Patient Education Patient Instructions Indication:Non-smoker Start:08-May-2017 Instruction Type:Provider Instructions for Treatment How to access health informa tion online Indication:Non-smoker Start:22-Apr-2017 Instruction Type:Patient Education How to access health informa tion online - Detail Indication:Non-smoker Start:22-Apr-2017 Instruction Type:Patient Education Patient Instructions Indication:Non-smoker Start:22-Apr-2017 Instruction Type:Provider Instructions for Treatment How to access health informa tion online Indication:BMI less than 19,adult Start:14-Nov-2016 Instruction Type:Patient Education How to access health informa tion online - Detail Indication:BMI less than 19,adult Start:14-Nov-2016 Instruction Type:Patient Education Patient Instructions Indication:BMI less than 19,adult Start:14-Nov-2016 Instruction Type:Provider Instructions for Treatment Patient Instructions Indication:Benign essential hypertension Start:08-Sep-2016 Instruction Type:Provider Instructions for Treatment How to access health informa tion online Indication:Non-smoker Start:28-Aug-2016 Instruction Type:Patient Education How to access health informa tion online - Detail Indication:Non-smoker Start:28-Aug-2016 Instruction Type:Patient Education Patient Instructions Indication:Non-smoker Start:28-Aug-2016 Instruction Type:Provider Instructions for Treatment How to access health informa tion online Indication:BMI between 19-24,adult Start:24-Apr-2016 Instruction Type:Patient Education How to access health informa tion online - Detail Indication:BMI between 19-24,adult Start:24-Apr-2016 Instruction Type:Patient Education Patient Instructions Indication:BMI between 19-24,adult Start:24-Apr-2016 Instruction Type:Provider Instructions for Treatment Patient Instructions 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.) Start:02-Jul-2015 Instruction Type:Provider Instructions for Treatment How to access health informa tion online Indication:Anxiety Start:02-Jul-2015 Instruction Type:Patient Education How to access health informa tion online - Detail Indication:Anxiety Start:02-Jul-2015 Instruction Type:Patient Education Patient Instructions Indication:Anxiety Start:27-Nov-2011 Instruction Type:Provider Instructions for Treatment Name Dates Details How to access health informa tion online Indication:Non-smoker Start:13-Oct-2019 Instruction Type:Patient Education How to access health informa tion online - Detail Indication:Non-smoker Start:13-Oct-2019 Instruction Type:Patient Education Patient Instructions Indication:Non-smoker Start:13-Oct-2019 Instruction Type:Provider Instructions for Treatment How to access health informa tion online Indication:Non-smoker Start:03-Oct-2019 Instruction Type:Patient Education How to access health informa tion online - Detail Indication:Non-smoker Start:03-Oct-2019 Instruction Type:Patient Education Patient Instructions Indication:Non-smoker Start:03-Oct-2019 Instruction Type:Provider Instructions for Treatment How to access health informa tion online Indication:BMI less than 19,adult Start:17-Aug-2019 Instruction Type:Patient Education How to access health informa tion online - Detail Indication:BMI less than 19,adult Start:17-Aug-2019 Instruction Type:Patient Education Patient Instructions Indication:BMI less than 19,adult Start:17-Aug-2019 Instruction Type:Provider Instructions for Treatment How to access health informa tion online Indication:Non-smoker Start:15-Nov-2018 Instruction Type:Patient Education How to access health informa tion online - Detail Indication:Non-smoker Start:15-Nov-2018 Instruction Type:Patient Education Patient Instructions Indication:Skin rash Start:15-Nov-2018 Instruction Type:Provider Instructions for Treatment How to access health informa tion online Indication:Non-smoker Start:01-Oct-2018 Instruction Type:Patient Education How to access health informa tion online - Detail Indication:Non-smoker Start:01-Oct-2018 Instruction Type:Patient Education Patient Instructions Indication:Non-smoker Start:01-Oct-2018 Instruction Type:Provider Instructions for Treatment How to access health informa tion online Indication:Non-smoker Start:09-Sep-2018 Instruction Type:Patient Education How to access health informa tion online - Detail Indication:Non-smoker Start:09-Sep-2018 Instruction Type:Patient Education Patient Instructions Indication:Elevated blood pressure reading Start:09-Sep-2018 Instruction Type:Provider Instructions for Treatment How to access health informa tion online Indication:BMI between 19-24,adult Start:12-Aug-2018 Instruction Type:Patient Education How to access health informa tion online - Detail Indication:BMI between 19-24,adult Start:12-Aug-2018 Instruction Type:Patient Education Patient Instructions Indication:Abdominal pain Start:12-Aug-2018 Instruction Type:Provider Instructions for Treatment How to access health informa tion online Indication:Non-smoker Start:28-May-2018 Instruction Type:Patient Education How to access health informa tion online - Detail Indication:Non-smoker Start:28-May-2018 Instruction Type:Patient Education Patient Instructions Indication:Non-smoker Start:28-May-2018 Instruction Type:Provider Instructions for Treatment How to access health informa tion online Indication:Non-smoker Start:14-Jul-2017 Instruction Type:Patient Education How to access health informa tion online - Detail Indication:Non-smoker Start:14-Jul-2017 Instruction Type:Patient Education Patient Instructions Indication:Non-smoker Start:14-Jul-2017 Instruction Type:Provider Instructions for Treatment How to access health informa tion online Indication:Non-smoker Start:08-May-2017 Instruction Type:Patient Education How to access health informa tion online - Detail Indication:Non-smoker Start:08-May-2017 Instruction Type:Patient Education Patient Instructions Indication:Non-smoker Start:08-May-2017 Instruction Type:Provider Instructions for Treatment How to access health informa tion online Indication:Non-smoker Start:22-Apr-2017 Instruction Type:Patient Education How to access health informa tion online - Detail Indication:Non-smoker Start:22-Apr-2017 Instruction Type:Patient Education Patient Instructions Indication:Non-smoker Start:22-Apr-2017 Instruction Type:Provider Instructions for Treatment How to access health informa tion online Indication:BMI less than 19,adult Start:14-Nov-2016 Instruction Type:Patient Education How to access health informa tion online - Detail Indication:BMI less than 19,adult Start:14-Nov-2016 Instruction Type:Patient Education Patient Instructions Indication:BMI less than 19,adult Start:14-Nov-2016 Instruction Type:Provider Instructions for Treatment Patient Instructions Indication:Benign essential hypertension Start:08-Sep-2016 Instruction Type:Provider Instructions for Treatment How to access health informa tion online Indication:Non-smoker Start:28-Aug-2016 Instruction Type:Patient Education How to access health informa tion online - Detail Indication:Non-smoker Start:28-Aug-2016 Instruction Type:Patient Education Patient Instructions Indication:Non-smoker Start:28-Aug-2016 Instruction Type:Provider Instructions for Treatment How to access health informa tion online Indication:BMI between 19-24,adult Start:24-Apr-2016 Instruction Type:Patient Education How to access health informa tion online - Detail Indication:BMI between 19-24,adult Start:24-Apr-2016 Instruction Type:Patient Education Patient Instructions Indication:BMI between 19-24,adult Start:24-Apr-2016 Instruction Type:Provider Instructions for Treatment Patient Instructions 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.) Start:02-Jul-2015 Instruction Type:Provider Instructions for Treatment How to access health informa tion online Indication:Anxiety Start:02-Jul-2015 Instruction Type:Patient Education How to access health informa tion online - Detail Indication:Anxiety Start:02-Jul-2015 Instruction Type:Patient Education Patient Instructions Indication:Anxiety Start:27-Nov-2011 Instruction Type:Provider Instructions for Treatment Name Dates Details How to access health informa tion online Indication:Non-smoker Start:13-Oct-2019 Instruction Type:Patient Education How to access health informa tion online - Detail Indication:Non-smoker Start:13-Oct-2019 Instruction Type:Patient Education Patient Instructions Indication:Non-smoker Start:13-Oct-2019 Instruction Type:Provider Instructions for Treatment How to access health informa tion online Indication:Non-smoker Start:03-Oct-2019 Instruction Type:Patient Education How to access health informa tion online - Detail Indication:Non-smoker Start:03-Oct-2019 Instruction Type:Patient Education Patient Instructions Indication:Non-smoker Start:03-Oct-2019 Instruction Type:Provider Instructions for Treatment How to access health informa tion online Indication:BMI less than 19,adult Start:17-Aug-2019 Instruction Type:Patient Education How to access health informa tion online - Detail Indication:BMI less than 19,adult Start:17-Aug-2019 Instruction Type:Patient Education Patient Instructions Indication:BMI less than 19,adult Start:17-Aug-2019 Instruction Type:Provider Instructions for Treatment How to access health informa tion online Indication:Non-smoker Start:15-Nov-2018 Instruction Type:Patient Education How to access health informa tion online - Detail Indication:Non-smoker Start:15-Nov-2018 Instruction Type:Patient Education Patient Instructions Indication:Skin rash Start:15-Nov-2018 Instruction Type:Provider Instructions for Treatment How to access health informa tion online Indication:Non-smoker Start:01-Oct-2018 Instruction Type:Patient Education How to access health informa tion online - Detail Indication:Non-smoker Start:01-Oct-2018 Instruction Type:Patient Education Patient Instructions Indication:Non-smoker Start:01-Oct-2018 Instruction Type:Provider Instructions for Treatment How to access health informa tion online Indication:Non-smoker Start:09-Sep-2018 Instruction Type:Patient Education How to access health informa tion online - Detail Indication:Non-smoker Start:09-Sep-2018 Instruction Type:Patient Education Patient Instructions Indication:Elevated blood pressure reading Start:09-Sep-2018 Instruction Type:Provider Instructions for Treatment How to access health informa tion online Indication:BMI between 19-24,adult Start:12-Aug-2018 Instruction Type:Patient Education How to access health informa tion online - Detail Indication:BMI between 19-24,adult Start:12-Aug-2018 Instruction Type:Patient Education Patient Instructions Indication:Abdominal pain Start:12-Aug-2018 Instruction Type:Provider Instructions for Treatment How to access health informa tion online Indication:Non-smoker Start:28-May-2018 Instruction Type:Patient Education How to access health informa tion online - Detail Indication:Non-smoker Start:28-May-2018 Instruction Type:Patient Education Patient Instructions Indication:Non-smoker Start:28-May-2018 Instruction Type:Provider Instructions for Treatment How to access health informa tion online Indication:Non-smoker Start:14-Jul-2017 Instruction Type:Patient Education How to access health informa tion online - Detail Indication:Non-smoker Start:14-Jul-2017 Instruction Type:Patient Education Patient Instructions Indication:Non-smoker Start:14-Jul-2017 Instruction Type:Provider Instructions for Treatment How to access health informa tion online Indication:Non-smoker Start:08-May-2017 Instruction Type:Patient Education How to access health informa tion online - Detail Indication:Non-smoker Start:08-May-2017 Instruction Type:Patient Education Patient Instructions Indication:Non-smoker Start:08-May-2017 Instruction Type:Provider Instructions for Treatment How to access health informa tion online Indication:Non-smoker Start:22-Apr-2017 Instruction Type:Patient Education How to access health informa tion online - Detail Indication:Non-smoker Start:22-Apr-2017 Instruction Type:Patient Education Patient Instructions Indication:Non-smoker Start:22-Apr-2017 Instruction Type:Provider Instructions for Treatment How to access health informa tion online Indication:BMI less than 19,adult Start:14-Nov-2016 Instruction Type:Patient Education How to access health informa tion online - Detail Indication:BMI less than 19,adult Start:14-Nov-2016 Instruction Type:Patient Education Patient Instructions Indication:BMI less than 19,adult Start:14-Nov-2016 Instruction Type:Provider Instructions for Treatment Patient Instructions Indication:Benign essential hypertension Start:08-Sep-2016 Instruction Type:Provider Instructions for Treatment How to access health informa tion online Indication:Non-smoker Start:28-Aug-2016 Instruction Type:Patient Education How to access health informa tion online - Detail Indication:Non-smoker Start:28-Aug-2016 Instruction Type:Patient Education Patient Instructions Indication:Non-smoker Start:28-Aug-2016 Instruction Type:Provider Instructions for Treatment How to access health informa tion online Indication:BMI between 19-24,adult Start:24-Apr-2016 Instruction Type:Patient Education How to access health informa tion online - Detail Indication:BMI between 19-24,adult Start:24-Apr-2016 Instruction Type:Patient Education Patient Instructions Indication:BMI between 19-24,adult Start:24-Apr-2016 Instruction Type:Provider Instructions for Treatment Patient Instructions 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.) Start:02-Jul-2015 Instruction Type:Provider Instructions for Treatment How to access health informa tion online Indication:Anxiety Start:02-Jul-2015 Instruction Type:Patient Education How to access health informa tion online - Detail Indication:Anxiety Start:02-Jul-2015 Instruction Type:Patient Education Patient Instructions Indication:Anxiety Start:27-Nov-2011 Instruction Type:Provider Instructions for Treatment Name Dates Details How to access health informa tion online Indication:Non-smoker Start:13-Oct-2019 Instruction Type:Patient Education How to access health informa tion online - Detail Indication:Non-smoker Start:13-Oct-2019 Instruction Type:Patient Education Patient Instructions Indication:Non-smoker Start:13-Oct-2019 Instruction Type:Provider Instructions for Treatment How to access health informa tion online Indication:Non-smoker Start:03-Oct-2019 Instruction Type:Patient Education How to access health informa tion online - Detail Indication:Non-smoker Start:03-Oct-2019 Instruction Type:Patient Education Patient Instructions Indication:Non-smoker Start:03-Oct-2019 Instruction Type:Provider Instructions for Treatment How to access health informa tion online Indication:BMI less than 19,adult Start:17-Aug-2019 Instruction Type:Patient Education How to access health informa tion online - Detail Indication:BMI less than 19,adult Start:17-Aug-2019 Instruction Type:Patient Education Patient Instructions Indication:BMI less than 19,adult Start:17-Aug-2019 Instruction Type:Provider Instructions for Treatment How to access health informa tion online Indication:Non-smoker Start:15-Nov-2018 Instruction Type:Patient Education How to access health informa tion online - Detail Indication:Non-smoker Start:15-Nov-2018 Instruction Type:Patient Education Patient Instructions Indication:Skin rash Start:15-Nov-2018 Instruction Type:Provider Instructions for Treatment How to access health informa tion online Indication:Non-smoker Start:01-Oct-2018 Instruction Type:Patient Education How to access health informa tion online - Detail Indication:Non-smoker Start:01-Oct-2018 Instruction Type:Patient Education Patient Instructions Indication:Non-smoker Start:01-Oct-2018 Instruction Type:Provider Instructions for Treatment How to access health informa tion online Indication:Non-smoker Start:09-Sep-2018 Instruction Type:Patient Education How to access health informa tion online - Detail Indication:Non-smoker Start:09-Sep-2018 Instruction Type:Patient Education Patient Instructions Indication:Elevated blood pressure reading Start:09-Sep-2018 Instruction Type:Provider Instructions for Treatment How to access health informa tion online Indication:BMI between 19-24,adult Start:12-Aug-2018 Instruction Type:Patient Education How to access health informa tion online - Detail Indication:BMI between 19-24,adult Start:12-Aug-2018 Instruction Type:Patient Education Patient Instructions Indication:Abdominal pain Start:12-Aug-2018 Instruction Type:Provider Instructions for Treatment How to access health informa tion online Indication:Non-smoker Start:28-May-2018 Instruction Type:Patient Education How to access health informa tion online - Detail Indication:Non-smoker Start:28-May-2018 Instruction Type:Patient Education Patient Instructions Indication:Non-smoker Start:28-May-2018 Instruction Type:Provider Instructions for Treatment How to access health informa tion online Indication:Non-smoker Start:14-Jul-2017 Instruction Type:Patient Education How to access health informa tion online - Detail Indication:Non-smoker Start:14-Jul-2017 Instruction Type:Patient Education Patient Instructions Indication:Non-smoker Start:14-Jul-2017 Instruction Type:Provider Instructions for Treatment How to access health informa tion online Indication:Non-smoker Start:08-May-2017 Instruction Type:Patient Education How to access health informa tion online - Detail Indication:Non-smoker Start:08-May-2017 Instruction Type:Patient Education Patient Instructions Indication:Non-smoker Start:08-May-2017 Instruction Type:Provider Instructions for Treatment How to access health informa tion online Indication:Non-smoker Start:22-Apr-2017 Instruction Type:Patient Education How to access health informa tion online - Detail Indication:Non-smoker Start:22-Apr-2017 Instruction Type:Patient Education Patient Instructions Indication:Non-smoker Start:22-Apr-2017 Instruction Type:Provider Instructions for Treatment How to access health informa tion online Indication:BMI less than 19,adult Start:14-Nov-2016 Instruction Type:Patient Education How to access health informa tion online - Detail Indication:BMI less than 19,adult Start:14-Nov-2016 Instruction Type:Patient Education Patient Instructions Indication:BMI less than 19,adult Start:14-Nov-2016 Instruction Type:Provider Instructions for Treatment Patient Instructions Indication:Benign essential hypertension Start:08-Sep-2016 Instruction Type:Provider Instructions for Treatment How to access health informa tion online Indication:Non-smoker Start:28-Aug-2016 Instruction Type:Patient Education How to access health informa tion online - Detail Indication:Non-smoker Start:28-Aug-2016 Instruction Type:Patient Education Patient Instructions Indication:Non-smoker Start:28-Aug-2016 Instruction Type:Provider Instructions for Treatment How to access health informa tion online Indication:BMI between 19-24,adult Start:24-Apr-2016 Instruction Type:Patient Education How to access health informa tion online - Detail Indication:BMI between 19-24,adult Start:24-Apr-2016 Instruction Type:Patient Education Patient Instructions Indication:BMI between 19-24,adult Start:24-Apr-2016 Instruction Type:Provider Instructions for Treatment Patient Instructions 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.) Start:02-Jul-2015 Instruction Type:Provider Instructions for Treatment How to access health informa tion online Indication:Anxiety Start:02-Jul-2015 Instruction Type:Patient Education How to access health informa tion online - Detail Indication:Anxiety Start:02-Jul-2015 Instruction Type:Patient Education Patient Instructions Indication:Anxiety Start:27-Nov-2011 Instruction Type:Provider Instructions for Treatment Name Dates Details How to access health informa tion online Indication:Non-smoker Start:13-Oct-2019 Instruction Type:Patient Education How to access health informa tion online - Detail Indication:Non-smoker Start:13-Oct-2019 Instruction Type:Patient Education Patient Instructions Indication:Non-smoker Start:13-Oct-2019 Instruction Type:Provider Instructions for Treatment How to access health informa tion online Indication:Non-smoker Start:03-Oct-2019 Instruction Type:Patient Education How to access health informa tion online - Detail Indication:Non-smoker Start:03-Oct-2019 Instruction Type:Patient Education Patient Instructions Indication:Non-smoker Start:03-Oct-2019 Instruction Type:Provider Instructions for Treatment How to access health informa tion online Indication:BMI less than 19,adult Start:17-Aug-2019 Instruction Type:Patient Education How to access health informa tion online - Detail Indication:BMI less than 19,adult Start:17-Aug-2019 Instruction Type:Patient Education Patient Instructions Indication:BMI less than 19,adult Start:17-Aug-2019 Instruction Type:Provider Instructions for Treatment How to access health informa tion online Indication:Non-smoker Start:15-Nov-2018 Instruction Type:Patient Education How to access health informa tion online - Detail Indication:Non-smoker Start:15-Nov-2018 Instruction Type:Patient Education Patient Instructions Indication:Skin rash Start:15-Nov-2018 Instruction Type:Provider Instructions for Treatment How to access health informa tion online Indication:Non-smoker Start:01-Oct-2018 Instruction Type:Patient Education How to access health informa tion online - Detail Indication:Non-smoker Start:01-Oct-2018 Instruction Type:Patient Education Patient Instructions Indication:Non-smoker Start:01-Oct-2018 Instruction Type:Provider Instructions for Treatment How to access health informa tion online Indication:Non-smoker Start:09-Sep-2018 Instruction Type:Patient Education How to access health informa tion online - Detail Indication:Non-smoker Start:09-Sep-2018 Instruction Type:Patient Education Patient Instructions Indication:Elevated blood pressure reading Start:09-Sep-2018 Instruction Type:Provider Instructions for Treatment How to access health informa tion online Indication:BMI between 19-24,adult Start:12-Aug-2018 Instruction Type:Patient Education How to access health informa tion online - Detail Indication:BMI between 19-24,adult Start:12-Aug-2018 Instruction Type:Patient Education Patient Instructions Indication:Abdominal pain Start:12-Aug-2018 Instruction Type:Provider Instructions for Treatment How to access health informa tion online Indication:Non-smoker Start:28-May-2018 Instruction Type:Patient Education How to access health informa tion online - Detail Indication:Non-smoker Start:28-May-2018 Instruction Type:Patient Education Patient Instructions Indication:Non-smoker Start:28-May-2018 Instruction Type:Provider Instructions for Treatment How to access health informa tion online Indication:Non-smoker Start:14-Jul-2017 Instruction Type:Patient Education How to access health informa tion online - Detail Indication:Non-smoker Start:14-Jul-2017 Instruction Type:Patient Education Patient Instructions Indication:Non-smoker Start:14-Jul-2017 Instruction Type:Provider Instructions for Treatment How to access health informa tion online Indication:Non-smoker Start:08-May-2017 Instruction Type:Patient Education How to access health informa tion online - Detail Indication:Non-smoker Start:08-May-2017 Instruction Type:Patient Education Patient Instructions Indication:Non-smoker Start:08-May-2017 Instruction Type:Provider Instructions for Treatment How to access health informa tion online Indication:Non-smoker Start:22-Apr-2017 Instruction Type:Patient Education How to access health informa tion online - Detail Indication:Non-smoker Start:22-Apr-2017 Instruction Type:Patient Education Patient Instructions Indication:Non-smoker Start:22-Apr-2017 Instruction Type:Provider Instructions for Treatment How to access health informa tion online Indication:BMI less than 19,adult Start:14-Nov-2016 Instruction Type:Patient Education How to access health informa tion online - Detail Indication:BMI less than 19,adult Start:14-Nov-2016 Instruction Type:Patient Education Patient Instructions Indication:BMI less than 19,adult Start:14-Nov-2016 Instruction Type:Provider Instructions for Treatment Patient Instructions Indication:Benign essential hypertension Start:08-Sep-2016 Instruction Type:Provider Instructions for Treatment How to access health informa tion online Indication:Non-smoker Start:28-Aug-2016 Instruction Type:Patient Education How to access health informa tion online - Detail Indication:Non-smoker Start:28-Aug-2016 Instruction Type:Patient Education Patient Instructions Indication:Non-smoker Start:28-Aug-2016 Instruction Type:Provider Instructions for Treatment How to access health informa tion online Indication:BMI between 19-24,adult Start:24-Apr-2016 Instruction Type:Patient Education How to access health informa tion online - Detail Indication:BMI between 19-24,adult Start:24-Apr-2016 Instruction Type:Patient Education Patient Instructions Indication:BMI between 19-24,adult Start:24-Apr-2016 Instruction Type:Provider Instructions for Treatment Patient Instructions 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.) Start:02-Jul-2015 Instruction Type:Provider Instructions for Treatment How to access health informa tion online Indication:Anxiety Start:02-Jul-2015 Instruction Type:Patient Education How to access health informa tion online - Detail Indication:Anxiety Start:02-Jul-2015 Instruction Type:Patient Education Patient Instructions Indication:Anxiety Start:27-Nov-2011 Instruction Type:Provider Instructions for Treatment Name Dates Details How to access health informa tion online Indication:Non-smoker Start:13-Oct-2019 Instruction Type:Patient Education How to access health informa tion online - Detail Indication:Non-smoker Start:13-Oct-2019 Instruction Type:Patient Education Patient Instructions Indication:Non-smoker Start:13-Oct-2019 Instruction Type:Provider Instructions for Treatment How to access health informa tion online Indication:Non-smoker Start:03-Oct-2019 Instruction Type:Patient Education How to access health informa tion online - Detail Indication:Non-smoker Start:03-Oct-2019 Instruction Type:Patient Education Patient Instructions Indication:Non-smoker Start:03-Oct-2019 Instruction Type:Provider Instructions for Treatment How to access health informa tion online Indication:BMI less than 19,adult Start:17-Aug-2019 Instruction Type:Patient Education How to access health informa tion online - Detail Indication:BMI less than 19,adult Start:17-Aug-2019 Instruction Type:Patient Education Patient Instructions Indication:BMI less than 19,adult Start:17-Aug-2019 Instruction Type:Provider Instructions for Treatment How to access health informa tion online Indication:Non-smoker Start:15-Nov-2018 Instruction Type:Patient Education How to access health informa tion online - Detail Indication:Non-smoker Start:15-Nov-2018 Instruction Type:Patient Education Patient Instructions Indication:Skin rash Start:15-Nov-2018 Instruction Type:Provider Instructions for Treatment How to access health informa tion online Indication:Non-smoker Start:01-Oct-2018 Instruction Type:Patient Education How to access health informa tion online - Detail Indication:Non-smoker Start:01-Oct-2018 Instruction Type:Patient Education Patient Instructions Indication:Non-smoker Start:01-Oct-2018 Instruction Type:Provider Instructions for Treatment How to access health informa tion online Indication:Non-smoker Start:09-Sep-2018 Instruction Type:Patient Education How to access health informa tion online - Detail Indication:Non-smoker Start:09-Sep-2018 Instruction Type:Patient Education Patient Instructions Indication:Elevated blood pressure reading Start:09-Sep-2018 Instruction Type:Provider Instructions for Treatment How to access health informa tion online Indication:BMI between 19-24,adult Start:12-Aug-2018 Instruction Type:Patient Education How to access health informa tion online - Detail Indication:BMI between 19-24,adult Start:12-Aug-2018 Instruction Type:Patient Education Patient Instructions Indication:Abdominal pain Start:12-Aug-2018 Instruction Type:Provider Instructions for Treatment How to access health informa tion online Indication:Non-smoker Start:28-May-2018 Instruction Type:Patient Education How to access health informa tion online - Detail Indication:Non-smoker Start:28-May-2018 Instruction Type:Patient Education Patient Instructions Indication:Non-smoker Start:28-May-2018 Instruction Type:Provider Instructions for Treatment How to access health informa tion online Indication:Non-smoker Start:14-Jul-2017 Instruction Type:Patient Education How to access health informa tion online - Detail Indication:Non-smoker Start:14-Jul-2017 Instruction Type:Patient Education Patient Instructions Indication:Non-smoker Start:14-Jul-2017 Instruction Type:Provider Instructions for Treatment How to access health informa tion online Indication:Non-smoker Start:08-May-2017 Instruction Type:Patient Education How to access health informa tion online - Detail Indication:Non-smoker Start:08-May-2017 Instruction Type:Patient Education Patient Instructions Indication:Non-smoker Start:08-May-2017 Instruction Type:Provider Instructions for Treatment How to access health informa tion online Indication:Non-smoker Start:22-Apr-2017 Instruction Type:Patient Education How to access health informa tion online - Detail Indication:Non-smoker Start:22-Apr-2017 Instruction Type:Patient Education Patient Instructions Indication:Non-smoker Start:22-Apr-2017 Instruction Type:Provider Instructions for Treatment How to access health informa tion online Indication:BMI less than 19,adult Start:14-Nov-2016 Instruction Type:Patient Education How to access health informa tion online - Detail Indication:BMI less than 19,adult Start:14-Nov-2016 Instruction Type:Patient Education Patient Instructions Indication:BMI less than 19,adult Start:14-Nov-2016 Instruction Type:Provider Instructions for Treatment Patient Instructions Indication:Benign essential hypertension Start:08-Sep-2016 Instruction Type:Provider Instructions for Treatment How to access health informa tion online Indication:Non-smoker Start:28-Aug-2016 Instruction Type:Patient Education How to access health informa tion online - Detail Indication:Non-smoker Start:28-Aug-2016 Instruction Type:Patient Education Patient Instructions Indication:Non-smoker Start:28-Aug-2016 Instruction Type:Provider Instructions for Treatment How to access health informa tion online Indication:BMI between 19-24,adult Start:24-Apr-2016 Instruction Type:Patient Education How to access health informa tion online - Detail Indication:BMI between 19-24,adult Start:24-Apr-2016 Instruction Type:Patient Education Patient Instructions Indication:BMI between 19-24,adult Start:24-Apr-2016 Instruction Type:Provider Instructions for Treatment Patient Instructions 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.) Start:02-Jul-2015 Instruction Type:Provider Instructions for Treatment How to access health informa tion online Indication:Anxiety Start:02-Jul-2015 Instruction Type:Patient Education How to access health informa tion online - Detail Indication:Anxiety Start:02-Jul-2015 Instruction Type:Patient Education Patient Instructions Indication:Anxiety Start:27-Nov-2011 Instruction Type:Provider Instructions for Treatment Name Dates Details How to access health informa tion online Indication:Non-smoker Start:09-Sep-2018 Instruction Type:Patient Education How to access health informa tion online - Detail Indication:Non-smoker Start:09-Sep-2018 Instruction Type:Patient Education Patient Instructions Indication:Non-smoker Start:09-Sep-2018 Instruction Type:Provider Instructions for Treatment How to access health informa tion online Indication:BMI between 19-24,adult Start:12-Aug-2018 Instruction Type:Patient Education How to access health informa tion online - Detail Indication:BMI between 19-24,adult Start:12-Aug-2018 Instruction Type:Patient Education Patient Instructions Indication:Abdominal pain Start:12-Aug-2018 Instruction Type:Provider Instructions for Treatment How to access health informa tion online Indication:Non-smoker Start:28-May-2018 Instruction Type:Patient Education How to access health informa tion online - Detail Indication:Non-smoker Start:28-May-2018 Instruction Type:Patient Education Patient Instructions Indication:Non-smoker Start:28-May-2018 Instruction Type:Provider Instructions for Treatment How to access health informa tion online Indication:Non-smoker Start:14-Jul-2017 Instruction Type:Patient Education How to access health informa tion online - Detail Indication:Non-smoker Start:14-Jul-2017 Instruction Type:Patient Education Patient Instructions Indication:Non-smoker Start:14-Jul-2017 Instruction Type:Provider Instructions for Treatment How to access health informa tion online Indication:Non-smoker Start:08-May-2017 Instruction Type:Patient Education How to access health informa tion online - Detail Indication:Non-smoker Start:08-May-2017 Instruction Type:Patient Education Patient Instructions Indication:Non-smoker Start:08-May-2017 Instruction Type:Provider Instructions for Treatment How to access health informa tion online Indication:Non-smoker Start:22-Apr-2017 Instruction Type:Patient Education How to access health informa tion online - Detail Indication:Non-smoker Start:22-Apr-2017 Instruction Type:Patient Education Patient Instructions Indication:Non-smoker Start:22-Apr-2017 Instruction Type:Provider Instructions for Treatment How to access health informa tion online Indication:BMI less than 19,adult Start:14-Nov-2016 Instruction Type:Patient Education How to access health informa tion online - Detail Indication:BMI less than 19,adult Start:14-Nov-2016 Instruction Type:Patient Education Patient Instructions Indication:BMI less than 19,adult Start:14-Nov-2016 Instruction Type:Provider Instructions for Treatment Patient Instructions Indication:Benign essential hypertension Start:08-Sep-2016 Instruction Type:Provider Instructions for Treatment How to access health informa tion online Indication:Non-smoker Start:28-Aug-2016 Instruction Type:Patient Education How to access health informa tion online - Detail Indication:Non-smoker Start:28-Aug-2016 Instruction Type:Patient Education Patient Instructions Indication:Non-smoker Start:28-Aug-2016 Instruction Type:Provider Instructions for Treatment How to access health informa tion online Indication:BMI between 19-24,adult Start:24-Apr-2016 Instruction Type:Patient Education How to access health informa tion online - Detail Indication:BMI between 19-24,adult Start:24-Apr-2016 Instruction Type:Patient Education Patient Instructions Indication:BMI between 19-24,adult Start:24-Apr-2016 Instruction Type:Provider Instructions for Treatment Patient Instructions 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.) Start:02-Jul-2015 Instruction Type:Provider Instructions for Treatment How to access health informa tion online Indication:Anxiety Start:02-Jul-2015 Instruction Type:Patient Education How to access health informa tion online - Detail Indication:Anxiety Start:02-Jul-2015 Instruction Type:Patient Education Patient Instructions Indication:Anxiety Start:27-Nov-2011 Instruction Type:Provider Instructions for Treatment Name Dates Details How to Access Health Informa tion Online using Patient Portal and [employer]rd [employer] Apps Indication:Non-smoker Start:06-Apr-2020 Instruction Type:Patient Education Patient Instructions Indication:Non-smoker Start:06-Apr-2020 Instruction Type:Provider Instructions for Treatment How to access health informa tion online Indication:Non-smoker Start:13-Oct-2019 Instruction Type:Patient Education How to access health informa tion online - Detail Indication:Non-smoker Start:13-Oct-2019 Instruction Type:Patient Education Patient Instructions Indication:Non-smoker Start:13-Oct-2019 Instruction Type:Provider Instructions for Treatment How to access health informa tion online Indication:Non-smoker Start:03-Oct-2019 Instruction Type:Patient Education How to access health informa tion online - Detail Indication:Non-smoker Start:03-Oct-2019 Instruction Type:Patient Education Patient Instructions Indication:Non-smoker Start:03-Oct-2019 Instruction Type:Provider Instructions for Treatment How to access health informa tion online Indication:BMI less than 19,adult Start:17-Aug-2019 Instruction Type:Patient Education How to access health informa tion online - Detail Indication:BMI less than 19,adult Start:17-Aug-2019 Instruction Type:Patient Education Patient Instructions Indication:BMI less than 19,adult Start:17-Aug-2019 Instruction Type:Provider Instructions for Treatment How to access health informa tion online Indication:Non-smoker Start:15-Nov-2018 Instruction Type:Patient Education How to access health informa tion online - Detail Indication:Non-smoker Start:15-Nov-2018 Instruction Type:Patient Education Patient Instructions Indication:Skin rash Start:15-Nov-2018 Instruction Type:Provider Instructions for Treatment How to access health informa tion online Indication:Non-smoker Start:01-Oct-2018 Instruction Type:Patient Education How to access health informa tion online - Detail Indication:Non-smoker Start:01-Oct-2018 Instruction Type:Patient Education Patient Instructions Indication:Non-smoker Start:01-Oct-2018 Instruction Type:Provider Instructions for Treatment How to access health informa tion online Indication:Non-smoker Start:09-Sep-2018 Instruction Type:Patient Education How to access health informa tion online - Detail Indication:Non-smoker Start:09-Sep-2018 Instruction Type:Patient Education Patient Instructions Indication:Elevated blood pressure reading Start:09-Sep-2018 Instruction Type:Provider Instructions for Treatment How to access health informa tion online Indication:BMI between 19-24,adult Start:12-Aug-2018 Instruction Type:Patient Education How to access health informa tion online - Detail Indication:BMI between 19-24,adult Start:12-Aug-2018 Instruction Type:Patient Education Patient Instructions Indication:Abdominal pain Start:12-Aug-2018 Instruction Type:Provider Instructions for Treatment How to access health informa tion online Indication:Non-smoker Start:28-May-2018 Instruction Type:Patient Education How to access health informa tion online - Detail Indication:Non-smoker Start:28-May-2018 Instruction Type:Patient Education Patient Instructions Indication:Non-smoker Start:28-May-2018 Instruction Type:Provider Instructions for Treatment How to access health informa tion online Indication:Non-smoker Start:14-Jul-2017 Instruction Type:Patient Education How to access health informa tion online - Detail Indication:Non-smoker Start:14-Jul-2017 Instruction Type:Patient Education Patient Instructions Indication:Non-smoker Start:14-Jul-2017 Instruction Type:Provider Instructions for Treatment How to access health informa tion online Indication:Non-smoker Start:08-May-2017 Instruction Type:Patient Education How to access health informa tion online - Detail Indication:Non-smoker Start:08-May-2017 Instruction Type:Patient Education Patient Instructions Indication:Non-smoker Start:08-May-2017 Instruction Type:Provider Instructions for Treatment How to access health informa tion online Indication:Non-smoker Start:22-Apr-2017 Instruction Type:Patient Education How to access health informa tion online - Detail Indication:Non-smoker Start:22-Apr-2017 Instruction Type:Patient Education Patient Instructions Indication:Non-smoker Start:22-Apr-2017 Instruction Type:Provider Instructions for Treatment How to access health informa tion online Indication:BMI less than 19,adult Start:14-Nov-2016 Instruction Type:Patient Education How to access health informa tion online - Detail Indication:BMI less than 19,adult Start:14-Nov-2016 Instruction Type:Patient Education Patient Instructions Indication:BMI less than 19,adult Start:14-Nov-2016 Instruction Type:Provider Instructions for Treatment Patient Instructions Indication:Benign essential hypertension Start:08-Sep-2016 Instruction Type:Provider Instructions for Treatment How to access health informa tion online Indication:Non-smoker Start:28-Aug-2016 Instruction Type:Patient Education How to access health informa tion online - Detail Indication:Non-smoker Start:28-Aug-2016 Instruction Type:Patient Education Patient Instructions Indication:Non-smoker Start:28-Aug-2016 Instruction Type:Provider Instructions for Treatment How to access health informa tion online Indication:BMI between 19-24,adult Start:24-Apr-2016 Instruction Type:Patient Education How to access health informa tion online - Detail Indication:BMI between 19-24,adult Start:24-Apr-2016 Instruction Type:Patient Education Patient Instructions Indication:BMI between 19-24,adult Start:24-Apr-2016 Instruction Type:Provider Instructions for Treatment Patient Instructions 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.) Start:02-Jul-2015 Instruction Type:Provider Instructions for Treatment How to access health informa tion online Indication:Anxiety Start:02-Jul-2015 Instruction Type:Patient Education How to access health informa tion online - Detail Indication:Anxiety Start:02-Jul-2015 Instruction Type:Patient Education Patient Instructions Indication:Anxiety Start:27-Nov-2011 Instruction Type:Provider Instructions for Treatment Name Dates Details Patient Instructions Indication:[place] Start:04-May-2020 Instruction Type:Provider Instructions for Treatment How to Access Health Informa tion Online using Patient Portal and [employer] Apps Indication:Non-smoker Start:06-Apr-2020 Instruction Type:Patient Education Patient Instructions Indication:Non-smoker Start:06-Apr-2020 Instruction Type:Provider Instructions for Treatment How to access health informa tion online Indication:Non-smoker Start:13-Oct-2019 Instruction Type:Patient Education How to access health informa tion online - Detail Indication:Non-smoker Start:13-Oct-2019 Instruction Type:Patient Education Patient Instructions Indication:Non-smoker Start:13-Oct-2019 Instruction Type:Provider Instructions for Treatment How to access health informa tion online Indication:Non-smoker Start:03-Oct-2019 Instruction Type:Patient Education How to access health informa tion online - Detail Indication:Non-smoker Start:03-Oct-2019 Instruction Type:Patient Education Patient Instructions Indication:Non-smoker Start:03-Oct-2019 Instruction Type:Provider Instructions for Treatment How to access health informa tion online Indication:BMI less than 19,adult Start:17-Aug-2019 Instruction Type:Patient Education How to access health informa tion online - Detail Indication:BMI less than 19,adult Start:17-Aug-2019 Instruction Type:Patient Education Patient Instructions Indication:BMI less than 19,adult Start:17-Aug-2019 Instruction Type:Provider Instructions for Treatment How to access health informa tion online Indication:Non-smoker Start:15-Nov-2018 Instruction Type:Patient Education How to access health informa tion online - Detail Indication:Non-smoker Start:15-Nov-2018 Instruction Type:Patient Education Patient Instructions Indication:Skin rash Start:15-Nov-2018 Instruction Type:Provider Instructions for Treatment How to access health informa tion online Indication:Non-smoker Start:01-Oct-2018 Instruction Type:Patient Education How to access health informa tion online - Detail Indication:Non-smoker Start:01-Oct-2018 Instruction Type:Patient Education Patient Instructions Indication:Non-smoker Start:01-Oct-2018 Instruction Type:Provider Instructions for Treatment How to access health informa tion online Indication:Non-smoker Start:09-Sep-2018 Instruction Type:Patient Education How to access health informa tion online - Detail Indication:Non-smoker Start:09-Sep-2018 Instruction Type:Patient Education Patient Instructions Indication:Elevated blood pressure reading Start:09-Sep-2018 Instruction Type:Provider Instructions for Treatment How to access health informa tion online Indication:BMI between 19-24,adult Start:12-Aug-2018 Instruction Type:Patient Education How to access health informa tion online - Detail Indication:BMI between 19-24,adult Start:12-Aug-2018 Instruction Type:Patient Education Patient Instructions Indication:Abdominal pain Start:12-Aug-2018 Instruction Type:Provider Instructions for Treatment How to access health informa tion online Indication:Non-smoker Start:28-May-2018 Instruction Type:Patient Education How to access health informa tion online - Detail Indication:Non-smoker Start:28-May-2018 Instruction Type:Patient Education Patient Instructions Indication:Non-smoker Start:28-May-2018 Instruction Type:Provider Instructions for Treatment How to access health informa tion online Indication:Non-smoker Start:14-Jul-2017 Instruction Type:Patient Education How to access health informa tion online - Detail Indication:Non-smoker Start:14-Jul-2017 Instruction Type:Patient Education Patient Instructions Indication:Non-smoker Start:14-Jul-2017 Instruction Type:Provider Instructions for Treatment How to access health informa tion online Indication:Non-smoker Start:08-May-2017 Instruction Type:Patient Education How to access health informa tion online - Detail Indication:Non-smoker Start:08-May-2017 Instruction Type:Patient Education Patient Instructions Indication:Non-smoker Start:08-May-2017 Instruction Type:Provider Instructions for Treatment How to access health informa tion online Indication:Non-smoker Start:22-Apr-2017 Instruction Type:Patient Education How to access health informa tion online - Detail Indication:Non-smoker Start:22-Apr-2017 Instruction Type:Patient Education Patient Instructions Indication:Non-smoker Start:22-Apr-2017 Instruction Type:Provider Instructions for Treatment How to access health informa tion online Indication:BMI less than 19,adult Start:14-Nov-2016 Instruction Type:Patient Education How to access health informa tion online - Detail Indication:BMI less than 19,adult Start:14-Nov-2016 Instruction Type:Patient Education Patient Instructions Indication:BMI less than 19,adult Start:14-Nov-2016 Instruction Type:Provider Instructions for Treatment Patient Instructions Indication:Benign essential hypertension Start:08-Sep-2016 Instruction Type:Provider Instructions for Treatment How to access health informa tion online Indication:Non-smoker Start:28-Aug-2016 Instruction Type:Patient Education How to access health informa tion online - Detail Indication:Non-smoker Start:28-Aug-2016 Instruction Type:Patient Education Patient Instructions Indication:Non-smoker Start:28-Aug-2016 Instruction Type:Provider Instructions for Treatment How to access health informa tion online Indication:BMI between 19-24,adult Start:24-Apr-2016 Instruction Type:Patient Education How to access health informa tion online - Detail Indication:BMI between 19-24,adult Start:24-Apr-2016 Instruction Type:Patient Education Patient Instructions Indication:BMI between 19-24,adult Start:24-Apr-2016 Instruction Type:Provider Instructions for Treatment Patient Instructions 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.) Start:02-Jul-2015 Instruction Type:Provider Instructions for Treatment How to access health informa tion online Indication:Anxiety Start:02-Jul-2015 Instruction Type:Patient Education How to access health informa tion online - Detail Indication:Anxiety Start:02-Jul-2015 Instruction Type:Patient Education Patient Instructions Indication:Anxiety Start:27-Nov-2011 Instruction Type:Provider Instructions for Treatment Name Dates Details How to access health informa tion online Indication:Non-smoker Start:09-Sep-2018 Instruction Type:Patient Education How to access health informa tion online - Detail Indication:Non-smoker Start:09-Sep-2018 Instruction Type:Patient Education Patient Instructions Indication:Elevated blood pressure reading Start:09-Sep-2018 Instruction Type:Provider Instructions for Treatment How to access health informa tion online Indication:BMI between 19-24,adult Start:12-Aug-2018 Instruction Type:Patient Education How to access health informa tion online - Detail Indication:BMI between 19-24,adult Start:12-Aug-2018 Instruction Type:Patient Education Patient Instructions Indication:Abdominal pain Start:12-Aug-2018 Instruction Type:Provider Instructions for Treatment How to access health informa tion online Indication:Non-smoker Start:28-May-2018 Instruction Type:Patient Education How to access health informa tion online - Detail Indication:Non-smoker Start:28-May-2018 Instruction Type:Patient Education Patient Instructions Indication:Non-smoker Start:28-May-2018 Instruction Type:Provider Instructions for Treatment How to access health informa tion online Indication:Non-smoker Start:14-Jul-2017 Instruction Type:Patient Education How to access health informa tion online - Detail Indication:Non-smoker Start:14-Jul-2017 Instruction Type:Patient Education Patient Instructions Indication:Non-smoker Start:14-Jul-2017 Instruction Type:Provider Instructions for Treatment How to access health informa tion online Indication:Non-smoker Start:08-May-2017 Instruction Type:Patient Education How to access health informa tion online - Detail Indication:Non-smoker Start:08-May-2017 Instruction Type:Patient Education Patient Instructions Indication:Non-smoker Start:08-May-2017 Instruction Type:Provider Instructions for Treatment How to access health informa tion online Indication:Non-smoker Start:22-Apr-2017 Instruction Type:Patient Education How to access health informa tion online - Detail Indication:Non-smoker Start:22-Apr-2017 Instruction Type:Patient Education Patient Instructions Indication:Non-smoker Start:22-Apr-2017 Instruction Type:Provider Instructions for Treatment How to access health informa tion online Indication:BMI less than 19,adult Start:14-Nov-2016 Instruction Type:Patient Education How to access health informa tion online - Detail Indication:BMI less than 19,adult Start:14-Nov-2016 Instruction Type:Patient Education Patient Instructions Indication:BMI less than 19,adult Start:14-Nov-2016 Instruction Type:Provider Instructions for Treatment Patient Instructions Indication:Benign essential hypertension Start:08-Sep-2016 Instruction Type:Provider Instructions for Treatment How to access health informa tion online Indication:Non-smoker Start:28-Aug-2016 Instruction Type:Patient Education How to access health informa tion online - Detail Indication:Non-smoker Start:28-Aug-2016 Instruction Type:Patient Education Patient Instructions Indication:Non-smoker Start:28-Aug-2016 Instruction Type:Provider Instructions for Treatment How to access health informa tion online Indication:BMI between 19-24,adult Start:24-Apr-2016 Instruction Type:Patient Education How to access health informa tion online - Detail Indication:BMI between 19-24,adult Start:24-Apr-2016 Instruction Type:Patient Education Patient Instructions Indication:BMI between 19-24,adult Start:24-Apr-2016 Instruction Type:Provider Instructions for Treatment Patient Instructions 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.) Start:02-Jul-2015 Instruction Type:Provider Instructions for Treatment How to access health informa tion online Indication:Anxiety Start:02-Jul-2015 Instruction Type:Patient Education How to access health informa tion online - Detail Indication:Anxiety Start:02-Jul-2015 Instruction Type:Patient Education Patient Instructions Indication:Anxiety Start:27-Nov-2011 Instruction Type:Provider Instructions for Treatment Name Dates Details How to access health informa tion online Indication:Non-smoker Start:01-Oct-2018 Instruction Type:Patient Education How to access health informa tion online - Detail Indication:Non-smoker Start:01-Oct-2018 Instruction Type:Patient Education Patient Instructions Indication:Non-smoker Start:01-Oct-2018 Instruction Type:Provider Instructions for Treatment How to access health informa tion online Indication:Non-smoker Start:09-Sep-2018 Instruction Type:Patient Education How to access health informa tion online - Detail Indication:Non-smoker Start:09-Sep-2018 Instruction Type:Patient Education Patient Instructions Indication:Elevated blood pressure reading Start:09-Sep-2018 Instruction Type:Provider Instructions for Treatment How to access health informa tion online Indication:BMI between 19-24,adult Start:12-Aug-2018 Instruction Type:Patient Education How to access health informa tion online - Detail Indication:BMI between 19-24,adult Start:12-Aug-2018 Instruction Type:Patient Education Patient Instructions Indication:Abdominal pain Start:12-Aug-2018 Instruction Type:Provider Instructions for Treatment How to access health informa tion online Indication:Non-smoker Start:28-May-2018 Instruction Type:Patient Education How to access health informa tion online - Detail Indication:Non-smoker Start:28-May-2018 Instruction Type:Patient Education Patient Instructions Indication:Non-smoker Start:28-May-2018 Instruction Type:Provider Instructions for Treatment How to access health informa tion online Indication:Non-smoker Start:14-Jul-2017 Instruction Type:Patient Education How to access health informa tion online - Detail Indication:Non-smoker Start:14-Jul-2017 Instruction Type:Patient Education Patient Instructions Indication:Non-smoker Start:14-Jul-2017 Instruction Type:Provider Instructions for Treatment How to access health informa tion online Indication:Non-smoker Start:08-May-2017 Instruction Type:Patient Education How to access health informa tion online - Detail Indication:Non-smoker Start:08-May-2017 Instruction Type:Patient Education Patient Instructions Indication:Non-smoker Start:08-May-2017 Instruction Type:Provider Instructions for Treatment How to access health informa tion online Indication:Non-smoker Start:22-Apr-2017 Instruction Type:Patient Education How to access health informa tion online - Detail Indication:Non-smoker Start:22-Apr-2017 Instruction Type:Patient Education Patient Instructions Indication:Non-smoker Start:22-Apr-2017 Instruction Type:Provider Instructions for Treatment How to access health informa tion online Indication:BMI less than 19,adult Start:14-Nov-2016 Instruction Type:Patient Education How to access health informa tion online - Detail Indication:BMI less than 19,adult Start:14-Nov-2016 Instruction Type:Patient Education Patient Instructions Indication:BMI less than 19,adult Start:14-Nov-2016 Instruction Type:Provider Instructions for Treatment Patient Instructions Indication:Benign essential hypertension Start:08-Sep-2016 Instruction Type:Provider Instructions for Treatment How to access health informa tion online Indication:Non-smoker Start:28-Aug-2016 Instruction Type:Patient Education How to access health informa tion online - Detail Indication:Non-smoker Start:28-Aug-2016 Instruction Type:Patient Education Patient Instructions Indication:Non-smoker Start:28-Aug-2016 Instruction Type:Provider Instructions for Treatment How to access health informa tion online Indication:BMI between 19-24,adult Start:24-Apr-2016 Instruction Type:Patient Education How to access health informa tion online - Detail Indication:BMI between 19-24,adult Start:24-Apr-2016 Instruction Type:Patient Education Patient Instructions Indication:BMI between 19-24,adult Start:24-Apr-2016 Instruction Type:Provider Instructions for Treatment Patient Instructions 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.) Start:02-Jul-2015 Instruction Type:Provider Instructions for Treatment How to access health informa tion online Indication:Anxiety Start:02-Jul-2015 Instruction Type:Patient Education How to access health informa tion online - Detail Indication:Anxiety Start:02-Jul-2015 Instruction Type:Patient Education Patient Instructions Indication:Anxiety Start:27-Nov-2011 Instruction Type:Provider Instructions for Treatment Name Dates Details How to Access Health Informa tion Online using Patient Portal and [employer] Apps Indication:Non-smoker Start:09-May-2020 Instruction Type:Patient Education Patient Instructions Indication:Non-smoker Start:09-May-2020 Instruction Type:Provider Instructions for Treatment Patient Instructions Indication:[place] Start:04-May-2020 Instruction Type:Provider Instructions for Treatment How to Access Health Informa tion Online using Patient Portal and [employer] Apps Indication:Non-smoker Start:06-Apr-2020 Instruction Type:Patient Education Patient Instructions Indication:Non-smoker Start:06-Apr-2020 Instruction Type:Provider Instructions for Treatment How to access health informa tion online Indication:Non-smoker Start:13-Oct-2019 Instruction Type:Patient Education How to access health informa tion online - Detail Indication:Non-smoker Start:13-Oct-2019 Instruction Type:Patient Education Patient Instructions Indication:Non-smoker Start:13-Oct-2019 Instruction Type:Provider Instructions for Treatment How to access health informa tion online Indication:Non-smoker Start:03-Oct-2019 Instruction Type:Patient Education How to access health informa tion online - Detail Indication:Non-smoker Start:03-Oct-2019 Instruction Type:Patient Education Patient Instructions Indication:Non-smoker Start:03-Oct-2019 Instruction Type:Provider Instructions for Treatment How to access health informa tion online Indication:BMI less than 19,adult Start:17-Aug-2019 Instruction Type:Patient Education How to access health informa tion online - Detail Indication:BMI less than 19,adult Start:17-Aug-2019 Instruction Type:Patient Education Patient Instructions Indication:BMI less than 19,adult Start:17-Aug-2019 Instruction Type:Provider Instructions for Treatment How to access health informa tion online Indication:Non-smoker Start:15-Nov-2018 Instruction Type:Patient Education How to access health informa tion online - Detail Indication:Non-smoker Start:15-Nov-2018 Instruction Type:Patient Education Patient Instructions Indication:Skin rash Start:15-Nov-2018 Instruction Type:Provider Instructions for Treatment How to access health informa tion online Indication:Non-smoker Start:01-Oct-2018 Instruction Type:Patient Education How to access health informa tion online - Detail Indication:Non-smoker Start:01-Oct-2018 Instruction Type:Patient Education Patient Instructions Indication:Non-smoker Start:01-Oct-2018 Instruction Type:Provider Instructions for Treatment How to access health informa tion online Indication:Non-smoker Start:09-Sep-2018 Instruction Type:Patient Education How to access health informa tion online - Detail Indication:Non-smoker Start:09-Sep-2018 Instruction Type:Patient Education Patient Instructions Indication:Elevated blood pressure reading Start:09-Sep-2018 Instruction Type:Provider Instructions for Treatment How to access health informa tion online Indication:BMI between 19-24,adult Start:12-Aug-2018 Instruction Type:Patient Education How to access health informa tion online - Detail Indication:BMI between 19-24,adult Start:12-Aug-2018 Instruction Type:Patient Education Patient Instructions Indication:Abdominal pain Start:12-Aug-2018 Instruction Type:Provider Instructions for Treatment How to access health informa tion online Indication:Non-smoker Start:28-May-2018 Instruction Type:Patient Education How to access health informa tion online - Detail Indication:Non-smoker Start:28-May-2018 Instruction Type:Patient Education Patient Instructions Indication:Non-smoker Start:28-May-2018 Instruction Type:Provider Instructions for Treatment How to access health informa tion online Indication:Non-smoker Start:14-Jul-2017 Instruction Type:Patient Education How to access health informa tion online - Detail Indication:Non-smoker Start:14-Jul-2017 Instruction Type:Patient Education Patient Instructions Indication:Non-smoker Start:14-Jul-2017 Instruction Type:Provider Instructions for Treatment How to access health informa tion online Indication:Non-smoker Start:08-May-2017 Instruction Type:Patient Education How to access health informa tion online - Detail Indication:Non-smoker Start:08-May-2017 Instruction Type:Patient Education Patient Instructions Indication:Non-smoker Start:08-May-2017 Instruction Type:Provider Instructions for Treatment How to access health informa tion online Indication:Non-smoker Start:22-Apr-2017 Instruction Type:Patient Education How to access health informa tion online - Detail Indication:Non-smoker Start:22-Apr-2017 Instruction Type:Patient Education Patient Instructions Indication:Non-smoker Start:22-Apr-2017 Instruction Type:Provider Instructions for Treatment How to access health informa tion online Indication:BMI less than 19,adult Start:14-Nov-2016 Instruction Type:Patient Education How to access health informa tion online - Detail Indication:BMI less than 19,adult Start:14-Nov-2016 Instruction Type:Patient Education Patient Instructions Indication:BMI less than 19,adult Start:14-Nov-2016 Instruction Type:Provider Instructions for Treatment Patient Instructions Indication:Benign essential hypertension Start:08-Sep-2016 Instruction Type:Provider Instructions for Treatment How to access health informa tion online Indication:Non-smoker Start:28-Aug-2016 Instruction Type:Patient Education How to access health informa tion online - Detail Indication:Non-smoker Start:28-Aug-2016 Instruction Type:Patient Education Patient Instructions Indication:Non-smoker Start:28-Aug-2016 Instruction Type:Provider Instructions for Treatment How to access health informa tion online Indication:BMI between 19-24,adult Start:24-Apr-2016 Instruction Type:Patient Education How to access health informa tion online - Detail Indication:BMI between 19-24,adult Start:24-Apr-2016 Instruction Type:Patient Education Patient Instructions Indication:BMI between 19-24,adult Start:24-Apr-2016 Instruction Type:Provider Instructions for Treatment Patient Instructions 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.) Start:02-Jul-2015 Instruction Type:Provider Instructions for Treatment How to access health informa tion online Indication:Anxiety Start:02-Jul-2015 Instruction Type:Patient Education How to access health informa tion online - Detail Indication:Anxiety Start:02-Jul-2015 Instruction Type:Patient Education Patient Instructions Indication:Anxiety Start:27-Nov-2011 Instruction Type:Provider Instructions for Treatment Name Dates Details How to Access Health Informa tion Online using Patient Portal and [employer] Apps Indication:Non-smoker Start:09-May-2020 Instruction Type:Patient Education Patient Instructions Indication:Non-smoker Start:09-May-2020 Instruction Type:Provider Instructions for Treatment Patient Instructions Indication:[place] Start:04-May-2020 Instruction Type:Provider Instructions for Treatment How to Access Health Informa tion Online using Patient Portal and [employer] Apps Indication:Non-smoker Start:06-Apr-2020 Instruction Type:Patient Education Patient Instructions Indication:Non-smoker Start:06-Apr-2020 Instruction Type:Provider Instructions for Treatment How to access health informa tion online Indication:Non-smoker Start:13-Oct-2019 Instruction Type:Patient Education How to access health informa tion online - Detail Indication:Non-smoker Start:13-Oct-2019 Instruction Type:Patient Education Patient Instructions Indication:Non-smoker Start:13-Oct-2019 Instruction Type:Provider Instructions for Treatment How to access health informa tion online Indication:Non-smoker Start:03-Oct-2019 Instruction Type:Patient Education How to access health informa tion online - Detail Indication:Non-smoker Start:03-Oct-2019 Instruction Type:Patient Education Patient Instructions Indication:Non-smoker Start:03-Oct-2019 Instruction Type:Provider Instructions for Treatment How to access health informa tion online Indication:BMI less than 19,adult Start:17-Aug-2019 Instruction Type:Patient Education How to access health informa tion online - Detail Indication:BMI less than 19,adult Start:17-Aug-2019 Instruction Type:Patient Education Patient Instructions Indication:BMI less than 19,adult Start:17-Aug-2019 Instruction Type:Provider Instructions for Treatment How to access health informa tion online Indication:Non-smoker Start:15-Nov-2018 Instruction Type:Patient Education How to access health informa tion online - Detail Indication:Non-smoker Start:15-Nov-2018 Instruction Type:Patient Education Patient Instructions Indication:Skin rash Start:15-Nov-2018 Instruction Type:Provider Instructions for Treatment How to access health informa tion online Indication:Non-smoker Start:01-Oct-2018 Instruction Type:Patient Education How to access health informa tion online - Detail Indication:Non-smoker Start:01-Oct-2018 Instruction Type:Patient Education Patient Instructions Indication:Non-smoker Start:01-Oct-2018 Instruction Type:Provider Instructions for Treatment How to access health informa tion online Indication:Non-smoker Start:09-Sep-2018 Instruction Type:Patient Education How to access health informa tion online - Detail Indication:Non-smoker Start:09-Sep-2018 Instruction Type:Patient Education Patient Instructions Indication:Elevated blood pressure reading Start:09-Sep-2018 Instruction Type:Provider Instructions for Treatment How to access health informa tion online Indication:BMI between 19-24,adult Start:12-Aug-2018 Instruction Type:Patient Education How to access health informa tion online - Detail Indication:BMI between 19-24,adult Start:12-Aug-2018 Instruction Type:Patient Education Patient Instructions Indication:Abdominal pain Start:12-Aug-2018 Instruction Type:Provider Instructions for Treatment How to access health informa tion online Indication:Non-smoker Start:28-May-2018 Instruction Type:Patient Education How to access health informa tion online - Detail Indication:Non-smoker Start:28-May-2018 Instruction Type:Patient Education Patient Instructions Indication:Non-smoker Start:28-May-2018 Instruction Type:Provider Instructions for Treatment How to access health informa tion online Indication:Non-smoker Start:14-Jul-2017 Instruction Type:Patient Education How to access health informa tion online - Detail Indication:Non-smoker Start:14-Jul-2017 Instruction Type:Patient Education Patient Instructions Indication:Non-smoker Start:14-Jul-2017 Instruction Type:Provider Instructions for Treatment How to access health informa tion online Indication:Non-smoker Start:08-May-2017 Instruction Type:Patient Education How to access health informa tion online - Detail Indication:Non-smoker Start:08-May-2017 Instruction Type:Patient Education Patient Instructions Indication:Non-smoker Start:08-May-2017 Instruction Type:Provider Instructions for Treatment How to access health informa tion online Indication:Non-smoker Start:22-Apr-2017 Instruction Type:Patient Education How to access health informa tion online - Detail Indication:Non-smoker Start:22-Apr-2017 Instruction Type:Patient Education Patient Instructions Indication:Non-smoker Start:22-Apr-2017 Instruction Type:Provider Instructions for Treatment How to access health informa tion online Indication:BMI less than 19,adult Start:14-Nov-2016 Instruction Type:Patient Education How to access health informa tion online - Detail Indication:BMI less than 19,adult Start:14-Nov-2016 Instruction Type:Patient Education Patient Instructions Indication:BMI less than 19,adult Start:14-Nov-2016 Instruction Type:Provider Instructions for Treatment Patient Instructions Indication:Benign essential hypertension Start:08-Sep-2016 Instruction Type:Provider Instructions for Treatment How to access health informa tion online Indication:Non-smoker Start:28-Aug-2016 Instruction Type:Patient Education How to access health informa tion online - Detail Indication:Non-smoker Start:28-Aug-2016 Instruction Type:Patient Education Patient Instructions Indication:Non-smoker Start:28-Aug-2016 Instruction Type:Provider Instructions for Treatment How to access health informa tion online Indication:BMI between 19-24,adult Start:24-Apr-2016 Instruction Type:Patient Education How to access health informa tion online - Detail Indication:BMI between 19-24,adult Start:24-Apr-2016 Instruction Type:Patient Education Patient Instructions Indication:BMI between 19-24,adult Start:24-Apr-2016 Instruction Type:Provider Instructions for Treatment Patient Instructions 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.) Start:02-Jul-2015 Instruction Type:Provider Instructions for Treatment How to access health informa tion online Indication:Anxiety Start:02-Jul-2015 Instruction Type:Patient Education How to access health informa tion online - Detail Indication:Anxiety Start:02-Jul-2015 Instruction Type:Patient Education Patient Instructions Indication:Anxiety Start:27-Nov-2011 Instruction Type:Provider Instructions for Treatment Name Dates Details How to access health informa tion online Indication:BMI between 19-24,adult Start:12-Aug-2018 Instruction Type:Patient Education How to access health informa tion online - Detail Indication:BMI between 19-24,adult Start:12-Aug-2018 Instruction Type:Patient Education Patient Instructions Indication:Abdominal pain Start:12-Aug-2018 Instruction Type:Provider Instructions for Treatment How to access health informa tion online Indication:Non-smoker Start:28-May-2018 Instruction Type:Patient Education How to access health informa tion online - Detail Indication:Non-smoker Start:28-May-2018 Instruction Type:Patient Education Patient Instructions Indication:Non-smoker Start:28-May-2018 Instruction Type:Provider Instructions for Treatment How to access health informa tion online Indication:Non-smoker Start:14-Jul-2017 Instruction Type:Patient Education How to access health informa tion online - Detail Indication:Non-smoker Start:14-Jul-2017 Instruction Type:Patient Education Patient Instructions Indication:Non-smoker Start:14-Jul-2017 Instruction Type:Provider Instructions for Treatment How to access health informa tion online Indication:Non-smoker Start:08-May-2017 Instruction Type:Patient Education How to access health informa tion online - Detail Indication:Non-smoker Start:08-May-2017 Instruction Type:Patient Education Patient Instructions Indication:Non-smoker Start:08-May-2017 Instruction Type:Provider Instructions for Treatment How to access health informa tion online Indication:Non-smoker Start:22-Apr-2017 Instruction Type:Patient Education How to access health informa tion online - Detail Indication:Non-smoker Start:22-Apr-2017 Instruction Type:Patient Education Patient Instructions Indication:Non-smoker Start:22-Apr-2017 Instruction Type:Provider Instructions for Treatment How to access health informa tion online Indication:BMI less than 19,adult Start:14-Nov-2016 Instruction Type:Patient Education How to access health informa tion online - Detail Indication:BMI less than 19,adult Start:14-Nov-2016 Instruction Type:Patient Education Patient Instructions Indication:BMI less than 19,adult Start:14-Nov-2016 Instruction Type:Provider Instructions for Treatment Patient Instructions Indication:Benign essential hypertension Start:08-Sep-2016 Instruction Type:Provider Instructions for Treatment How to access health informa tion online Indication:Non-smoker Start:28-Aug-2016 Instruction Type:Patient Education How to access health informa tion online - Detail Indication:Non-smoker Start:28-Aug-2016 Instruction Type:Patient Education Patient Instructions Indication:Non-smoker Start:28-Aug-2016 Instruction Type:Provider Instructions for Treatment How to access health informa tion online Indication:BMI between 19-24,adult Start:24-Apr-2016 Instruction Type:Patient Education How to access health informa tion online - Detail Indication:BMI between 19-24,adult Start:24-Apr-2016 Instruction Type:Patient Education Patient Instructions Indication:BMI between 19-24,adult Start:24-Apr-2016 Instruction Type:Provider Instructions for Treatment Patient Instructions 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.) Start:02-Jul-2015 Instruction Type:Provider Instructions for Treatment How to access health informa tion online Indication:Anxiety Start:02-Jul-2015 Instruction Type:Patient Education How to access health informa tion online - Detail Indication:Anxiety Start:02-Jul-2015 Instruction Type:Patient Education Patient Instructions Indication:Anxiety Start:27-Nov-2011 Instruction Type:Provider Instructions for Treatment Chief Complaint and Reason for Visit Chief Complaint overdue for OV COVID SCREEN/STREP TEST/SYMPTOMS E-ORDER Reason for Visit Takotsubo cardiomyop athy Essential hypertension History of supraventricular tachycardia Acute pharyngitis Contact with or suspected exposure to other viral communicable disease Chief Complaint 6 m fu Reason for Visit HLD (hyperlipidemia) Takotsubo cardiomyopathy Essential hypertension History of supraventricular tachycardia Chief Complaint SCREENING Chief Complaint SCREENING CONCERN FOR UTI Chief Complaint UI RX HERE CARDIOMYOPATHY; CAROTDI STENOSIS Chief Complaint Admit Date June 30, 2024 8:49am Chief Complaint Admit Date June 30, 2024 8:49am FALL October 11, 2024 12 :06pm ELEVATED TROPONIN W/ H.O TAKUTSUBO, FALL W/ WEAKNE October 11, 2024 2:13pm Reason for Visit Admit Date Closed head injury October 11, 2024 2: 13pm Elevated troponin October 11, 2024 2: 13pm Fall down stairs October 11, 2024 2: 13pm HLD (hyperlipidemia) October 11, 2024 2 :13pm Takotsubo cardiomyopathy October 11 2:13pm Essential hypertension October 11, 2024 2:13pm History of supraventricular tachycardia October 11, 2024 2:13pm Chief Complaint Admit Date June 30, 2024 8:49am FALL October 11, 2024 12 :06pm ELEVATED TROPONIN W/ H.O TAKUTSUBO, FALL W/ WEAKNE October 11, 2024 2:13pm ELEVATED TROPONIN W/ H.O TAKUTSUBO, FALL W/ WEAKNE October 12, 2024 2:53pm Additional Source Comments INFORMATION SOURCE (unrecogn ized section and content) DATE CREATED AUTHOR 08/12/2017 Tobi Enri[facility] DATE CREATED AUTHOR TOOTIE SHARMA ATION 06/26/2022 [facility] DATE CREATED AUTHOR AUTHOR'S ORGANIZ ATION 11/01/2024 [facility] DATE CREATED AUTHOR AUTHOR'S ORGANIZ ATION 12/24/2024 [facility] Source Comments (unrecognize d section and content) In the event this informatio n is protected by the Federal Confidentiality of Alcohol and Drug Abuse Patient Records regulations: The Federal rules restrict any use of the information to criminally investigate or prosecute any alcohol or drug abuse patient.[facility] the event this information is protected by the Federal Confidentiality of Alcohol and Drug Abuse Patient Records regulations: The Federal rules restrict any use of the information to criminally investigate or prosecute any alcohol or drug abuse patient.[facility] Hospital[facility] the event this information is protected by the Federal Confidentiality of Alcohol and Drug Abuse Patient Records regulations: The Federal rules restrict any use of the information to criminally investigate or prosecute any alcohol or drug abuse patient.[facility] the event this information is protected by the Federal Confidentiality of Alcohol and Drug Abuse Patient Records regulations: The Federal rules restrict any use of the information to criminally investigate or prosecute any alcohol or drug abuse patient.[facility] the event this information is protected by the Federal Confidentiality of Alcohol and Drug Abuse Patient Records regulations: The Federal rules restrict any use of the information to criminally investigate or prosecute any alcohol or drug abuse patient.[facility] Hospital[facility] the event this information is protected by the Federal Confidentiality of Alcohol and Drug Abuse Patient Records regulations: The Federal rules restrict any use of the information to criminally investigate or prosecute any alcohol or drug abuse patient.[facility] Hospital[facility] the event this information is protected by the Federal Confidentiality of Alcohol and Drug Abuse Patient Records regulations: The Federal rules restrict any use of the information to criminally investigate or prosecute any alcohol or drug abuse patient.[facility] Hospital[facility] the event this information is protected by the Federal Confidentiality of Alcohol and Drug Abuse Patient Records regulations: The Federal rules restrict any use of the information to criminally investigate or prosecute any alcohol or drug abuse patient.[facility] Hospital[facility] the event this information is protected by the Federal Confidentiality of Alcohol and Drug Abuse Patient Records regulations: The Federal rules restrict any use of the information to criminally investigate or prosecute any alcohol or drug abuse patient.[facility] Hospital[facility] the event this information is protected by the Federal Confidentiality of Alcohol and Drug Abuse Patient Records regulations: The Federal rules restrict any use of the information to criminally investigate or prosecute any alcohol or drug abuse patient.[facility] Hospital[facility] the event this information is protected by the Federal Confidentiality of Alcohol and Drug Abuse Patient Records regulations: The Federal rules restrict any use of the information to criminally investigate or prosecute any alcohol or drug abuse patient.[facility] Reason for Visit (unrecogniz ed section and content) Reason Comments Returning Patient's Call Reason Comments Follow Up 6 month pap Reason Comments Treatment Planning Reason Comments Patient Question Reason Comments Appointment Reason Comments Established Patient Reason Comments Well Woman Reason Comments Follow Up Reason Comments Patient Update Recent admission to [facility] Reason Comments Follow Up Care Teams (unrecognized sec tion and content) [employer] Relationship Specialty Start Date End Date Cira Ku, DO PCP - General Internal Medicine 07/05/15 [employer]ator Relationship Specialty Start Date End Date Cira Ku, DO PCP - General Internal Medicine 07/05/15 [employer] Orientator Relationship Specialty Start Date End Date Cira Ku DO PCP - General Internal Medicine 07/05/15 [employer] Orientator Relationship Specialty Start Date End Date Cira Ku DO PCP - General Internal Medicine 07/05/15 [employer] Orientator Relationship Specialty Start Date End Date Cira Ku DO PCP - General Internal Medicine 07/05/15 Team Status: Active Member Role Status Dates Dr. Cira Ku DO Family Provider Active Dr. Cira Ku DO Primary Care Provider Active Team Status: Inactive Member Role Status Dates Dr. Cira Ku DO Primary Care Provider, Attend ing Provider Active Team Status: Inactive Member Role Status Dates Dr. Cira Ku DO Primary Care Provider, Referr ing Provider Active Didier HARRY PA Attending Provider Active Team Status: Inactive Member Role Status Dates Dr. Cira Ku DO Primary Care Provider Active Didier HARRY, PA Attending Provider Active [employer] Relationship Specialty Start Date End Date Cira Ku DO PCP - General Internal Medicine 07/05/15 Team Status: Active Member Role Status Dates Dr. Cira Ku DO Primary Care Provider Active Dr. Jhonatan Zapata MD Attending Provider Active Team Status: Active Member Role Status Dates Dr. Cira Ku DO Primary Care Provider Active Dr. Bo Huitron MD Attending Provider Active Team Status: Inactive Member Role Status Dates Dr. Cira Ku DO Primary Care Pr ovider, Attending Provider, Referring Provider Active JESSICA NORTON Other Provider Active Lissette Curiel MD Other Provider Active Team Status: Active Member Role Status Dates Dr. Cira Ku DO Primary Care Pr ovider, Attending Provider, Referring Provider Active [employer]ator Relationship Specialty Start Date End Date Cira Ku DO PCP - General Internal Medicine 07/05/15 Quartz Orientator Relationship Specialty Start Date End Date Cira Ku DO PCP - General Internal Medicine 07/05/15 [employer]z Orientator Relationship Specialty Start Date End Date Cira Ku DO PCP - General Internal Medicine 07/05/15 Team Status: Active Member Role Status Dates Dr. Cira Ku DO Primary Care Provider Active Team Status: Inactive Member Role Status Dates Dr. Cira Ku DO Primary Care Provider Active Start: June 30, 2024 End: July 23, 2024 Self Referred Attending Provider Active Start: M ay 2024 End: July 23, 2024 Team Status: Active Member Role/Relationship Status Dates Dr. Cira Ku DO Primary Care Provider Active Team Status: Inactive Member Role/Relationship Status Dates Dr. Cira Ku DO Primary Care Provider Active Start: June 30, 2024 End: July 23, 2024 Self Referred Attending Provider Active Start: M ay 2024 End: July 23, 2024 Team Status: Active Member Role/Relationship Status Dates Dr. Cira Ku DO Primary Care Provider Active Start: October 11, 2024 Dr. Nova Hdz MD Attending Provider Active S tart: October 11, 2024 Dr. Nova Hdz MD Referring Provider Active S tart: October 11, 2024 Zeyad Moe MD Emergency Provider Active Star t: October 11, 2024 Team Status: Active Member Role/Relationship Status Dates Dr. Cira Ku DO Primary Care Provider Active Start: October 11, 2024 Dr. Nova Hdz MD Referring Provider Active S tart: October 11, 2024 Zeyad Moe MD Emergency Provider Active Star t: October 11, 2024 Dr. Timothy Baird DO Admit Provider Active Start: October 11, 2024 Dr. Timothy Baird DO Attending Provider Active Start: October 11, 2024 Team Status: Inactive Member Role/Relationship Status Dates Dr. Cira Ku DO Primary Care Provider Active Start: October 11, 2024 End: October 12, 2024 Dr. Nova Hdz MD Referring Provider Active S tart: October 11, 2024 End: October 12, 2024 Zeyad Moe MD Emergency Provider Active Star t: October 11, 2024 End: October 12, 2024 Dr. Timothy Baird DO Admit Provider Active Start: October 11, 2024 End: October 12, 2024 Dr. Timothy Baird DO Other Provider Active Start: October 11, 2024 End: October 12, 2024 Dr. Vee Chavarria MD Attending Provider Active Start: October 11, 2024 End: October 12, 2024 Team Status: Active Member Role/Relationship Status Dates Dr. Cira Ku DO Primary Care Provider Active Start: October 12, 2024 Dr. Nova Hdz MD Attending Provider Active S tart: October 12, 2024 Team Status: Active Member Role/Relationship Status Dates Dr. Cira Ku DO Primary Care Provider Active Start: October 12, 2024 Dr. Nova Hdz MD Referring Provider Active S tart: October 12, 2024 Zeyad Moe MD Emergency Provider Active Star t: October 12, 2024 Dr. Timothy Baird DO Admit Provider Active Start: October 12, 2024 Dr. Timothy Baird DO Other Provider Active Start: October 12, 2024 Dr. Vee Chavarria MD Attending Provider Active Start: October 12, 2024 Dr. Vee Chavarria MD Other Provider Active St art: October 12, 2024 Quartz Orientator Relationship Specialty Start Date End Date Cria Ku DO PCP - General Internal Medicine 07/05/15 Quartz Orientator Relationship Specialty Start Date End Date Cira Ku DO PCP - General Internal Medicine 07/05/15 Goals (unrecognized section and content) Goals may be documented in a n alternate sectionGoals may be documented in an alternate sectionGoals may be documented in an alternate sectionGoals may be documented in an alternate sectionGoals may be documented in an alternate sectionGoals may be documented in an alternate sectionGoals may be documented in an alternate section FOR RECORDS PERTAINING TO PATIENTS WHO ARE OR HAVE BEEN ENROLLED IN A CHEMICAL DEPENDENCY/SUBSTANCEABUSE PROGRAM, SOME INFORMATION MAY BE OMITTED. This clinical summary was aggregated from multiple sources. Caution should be exercised in using it in the provision of clinical care. This summary normalizes information from multiple sources, and as a consequence, information in this document may materially change the coding, format and clinical context of patient data. In addition, data may be omitted in some cases. CLINICAL DECISIONS SHOULD BE BASED ON THE PRIMARY CLINICAL RECORDS. [employer] provides no warranty or guarantee of the accuracy or completeness of information in this document.
[2025-02-03 10:24] LABS: Hematocrit 40.3 % (37-47); Hemoglobin 13.6 g/dL (12.0-15.0); Immature Granulocytes Count 0.010 X10^3/uL (0.0-0.0); Mean Corp Hgb Conc 33.7 g/dL (32-36); Mean Corpuscular Volume 86.7 fL (81-99); Mean Platelet Vol. 10.2 fl (6.2-12.0); NRBC Flagged by Analyzer 0 % (0-5); Platelet Count 259 K/mm3 (150-450); RBC Distribution Width CV 13.2 % (11.6-14.6); RBC Distribution Width SD 42.1 fl (35.1-43.9); Red Blood Count 4.65 M/mm3 (4.2-5.4); White Blood Count 5.6 K/mm3 (4.4-11.0)
[2025-02-03 10:28] LABS: Color, Urine Yellow (Yellow); Glucose, Dipstick Normal (Normal); Ketone-Dipstick Negative (Negative); Leukocyte Esterase-Dipstick Negative /ul (Negative); Nitrite-Dipstick Negative (Negative); Occult Blood-Urine Negative /ul (Negative); Protein-Dipstick 30 mg/dl (Negative); Specific Gravity, Urine 1.010 (1.002-1.030); Urine Bilirubin Dipstick Negative (Negative)
[2025-02-03 10:39] LABS: Mucous, Urine 1+ /hpf (<or=2+)
[2025-02-03 10:44] LABS: Creatinine, Urine (random) 120.00 mg/dL (28.00-217.00); Microalbumin,Random Urine < 12.0 mg/L (<20 mg/L)
[2025-02-03 10:56] LABS: AST(SGOT) 32 U/L (<=31); Alanine Aminotransfer ALT/SGPT 28 U/L (<=34); Albumin, Serum 4.1 g/dL (3.4-4.8); Alkaline Phosphatase 78 U/L (35-104); Anion Gap 9 (5-15); BUN 16 mg/dL (4-19); BUN/Creat Ratio 23.7 RATIO (10-20); Calcium,Total 9.3 mg/dL (7.6-11.0); Carbon Dioxide 26.7 mmol/L (21.0-32.0); Chloride 96 mmol/L (98-108); Cholesterol 217 mg/dL (<=200); Globulin 2.8 g/dL (2.2-4.2); Glucose 97 mg/dL (70-99); Low Density Lipoprotein Calc. 114 mg/dL; Potassium 4.4 mmol/L (3.3-5.1); Triglycerides 71 mg/dL; Very Low Density Lipoprotein 14 mg/dL (5-40); cholesterol:hdl ratio screen 2.41
[2025-02-06 13:08] LABS: Vitamin D 1,25-Dihydroxy 52.5 pg/mL (24.8-81.5)
== END | disposition home or self-care (01) ==
LOC: CIMLAB 07:19
PROVIDERS: PCP Internal Medicine; Referring Provider Internal Medicine; Visit Provider Internal Medicine
DX: E11.9 Type 2 diabetes mellitus without complications (principal); E55.9 Vitamin D deficiency, unspecified
CPT/HCPCS: 36415; 80053; 80061; 81001; 82043; 82570; 82652; 83036; 84443; 85025